=== PATIENT | female | born 1975 | race Caucasian/White ===

== ENCOUNTER 2018-12-16 16:30 | Inpatient (IN) | payer OTHER ==
--- NOTE | 2018-12-16 17:03 | ED ---
General Adult HPI - General Chief complaint: Shortness of Breath Stated complaint: LOW O2 Time Seen by Provider: 12/16/18 16:48 Source: patient Mode of arrival: ambulatory Limitations: no limitations - History of Present Illness Initial comments: Dictation was produced using [employer] dictation software. please excuse any grammatical, word or spelling errors. Chief Complaint: Patient is a 43-year-old female with recently removed tracheostomy presents with hypoxia. History of Present Illness: Patient is a 43-year-old female she was sent to the emergency department by home health care nurse. Allegedly patient has been 7 days out post tracheostomy removal. Patient had the trach placed for acute metabolic encephalopathy in acute hypoxic respiratory failure from pneumonia. Patient had her vitals checked by home health care nurse. Patient was hypoxic in the 70s. Patient has more shaky than usual although she does report that she was minimally tremulous. Patient states she's been coughing. Denies any pain. Patient resides with mother who concerned about her well-being. Mother has not had recurrent patient's medical status. Patient states that her shortness of breath has been progressive since having the tracheostomy removed. The ROS documented in this emergency department record has been reviewed and confirmed by me. Those systems with pertinent positive or negative responses have been documented in the HPI. All other systems are other negative and/or noncontributory. PHYSICAL EXAM: General Impression: Alert and oriented x3, tremulous HEENT: Normocephalic atraumatic, extra-ocular movements intact, pupils equal and reactive to light bilaterally, mucous membranes moist, tracheostomy site clean dry and intact Cardiovascular: Heart regular rate and rhythm, S1&S2 audible, no murmurs, rubs or gallops Chest: Crackles to the left lower lung base Abdomen: Bowel sounds present, abdomen soft, non-tender, non-distended, no organomegaly Musculoskeletal: Pulses present and equal in all extremities, no peripheral edema Motor: no focal deficits noted Neurological: CN II-XII grossly intact, no focal motor or sensory deficits noted Skin: Intact with no visualized rashes Psych: Normal affect and mood ED course: Patient is a 43-year-old female presents with toxic respiratory failure. Patient has extensive history of bilateral pneumonia, tracheostomy tube and removal. Patient does have positive lung auscultatory findings in the left lower lung base. On arrival shows heart rate of 127, respiratory 28, 80% on room air. She is immediately placed on supplemental oxygen with improvement of saturations to the mid 90s.Laboratory evaluation obtained. Leukocytosis 12.8. This appears to be R the patient's baseline. D-dimer is elevated 125. Blood gases are unremarkable. Metabolic panel shows potassium 3.2. Patient given IV potassium. Rest of labs are unremarkable. Chest x-ray shows findings of widespread bilateral infiltrative ill-defined consolidative opacity concerning for pneumonia versus pulmonary edema. X-ray of the cervical spine is unremarkable. Given elevated d-dimer CT angios the chest was obtained showing no findings of pulmonary edema however there is widespread bilateral airspace filling pulmonary process." Presentation is concerning for multifocal pneumonia. Given that patient was recently hospitalized we will cover with broad-spectrum antibiotics. Blood cultures pending. Patient kept on supplemental oxygen. Reevaluation shows improvement of symptoms. We will plan to have patient admitted with pulmonology on consult. Patient and family are understandable and agreeable to disposition. EKG interpretation: Ventricular rate 1:15, sinus tachycardia,. Interval 150, care is 80, QTc 442. No W[place] prolongation, no QTC prolongation, no ST or T-wave changes noted. EKG compared to 12/04/2018 showing no changes. Overall, this EKG is unremarkable - Related Data Home Medications Medication Instructions Recorded Confirmed Sertraline HCl [Zoloft] 200 mg PO PC-BRKFST 11/16/18 12/16/18 busPIRone HCL 15 mg PO BID 11/16/18 12/16/18 ALPRAZolam [Xanax] 0.5 mg PO TID PRN 12/16/18 12/16/18 Ipratropium-Albuterol Nebulize 3 ml INHALATION RT-QID PRN 12/16/18 12/16/18 [Duoneb 0.5 mg-3 mg/3 ml Soln] cloNIDine HCL [Catapres] 0.2 mg PO HS 12/16/18 12/16/18 Previous Rx's Medication Instructions Recorded Melatonin 2 mg PO HS tab 12/03/18 Allergies Allergy/AdvReac Type Severity Reaction Status Date / Time Sulfa (Sulfonamide Allergy Itching Verified 12/16/18 17:53 Antibiotics) sulfamethoxazole Allergy Rash/Hives Verified 12/16/18 17:53 [From Bactrim] trimethoprim [From Bactrim] Allergy Rash/Hives Verified 12/16/18 17:53 Review of Systems ROS Statement: Those systems with pertinent positive or pertinent negative responses have been documented in the HPI. ROS Other: All systems not noted in ROS Statement are negative. Past Medical History Past Medical History: Pneumonia, Respiratory Disorder Additional Past Medical History / Comment(s): Polysubstane abuse, hisotry of drug overdose, history of ARDS requiring intubation and mechanical ventilation, history of severe rhabdomyalysis and LUIS MIGUEL (recovered), history of MSSA pneumonia and sepsis, history of metabolic encephalopathy (recovered), hisotory of depression, suicide, obesity History of Any Multi-Drug Resistant Organisms: MRSA, None Reported Date of last positivie culture/infection: None MDRO Source:: None Past Surgical History: No Surgical Hx Reported, Unable to Obtain Additional Past Surgical History / Comment(s): breast biopsy (date unknown) Past Anesthesia/Blood Transfusion Reactions: No Reported Reaction Past Psychological History: Anxiety, Depression Smoking Status: Current every day smoker Past Alcohol Use History: None Reported, Unable to Obtain Past Drug Use History: Marijuana, Methamphetamine, None Reported General Exam Limitations: no limitations Course Vital Signs 12/16/18 12/16/18 12/16/18 16:36 16:46 17:35 Temperature 99.2 F Pulse Rate 127 H 121 H 115 H Respiratory 28 H 22 24 Rate Blood Pressure 117/70 121/84 139/99 O2 Sat by Pulse 80 L 92 L 94 L Oximetry 12/16/18 18:59 Temperature 99.4 F Pulse Rate 108 H Respiratory 22 Rate Blood Pressure 132/94 O2 Sat by Pulse 96 Oximetry Medical Decision Making - Lab Data Result diagrams: 12/16/18 17:35 12/16/18 17:35 Lab Results 12/16/18 12/16/18 12/16/18 Range/Units 17:35 17:35 17:35 WBC 12.8 H (3.8-10.6) k/uL RBC 3.50 L (3.80-5.40) m/uL Hgb 9.5 L D (11.4-16.0) gm/dL Hct 29.2 L (34.0-46.0) % MCV 83.2 D (80.0-100.0) fL MCH 27.0 (25.0-35.0) pg MCHC 32.5 (31.0-37.0) g/dL RDW 15.7 H (11.5-15.5) % Plt Count 445 (150-450) k/uL Neutrophils % 74 % Lymphocytes % 18 % Monocytes % 3 % Eosinophils % 4 % Basophils % 0 % Neutrophils # 9.5 H (1.3-7.7) k/uL Lymphocytes # 2.3 (1.0-4.8) k/uL Monocytes # 0.4 (0-1.0) k/uL Eosinophils # 0.5 (0-0.7) k/uL Basophils # 0.0 (0-0.2) k/uL Hypochromasia Moderate Poikilocytosis Slight D-Dimer (<0.60) mg/L FEU VBG pH (7.31-7.41) VBG pCO2 (37-51) mmHg VBG HCO3 (24-28) mmol/L Sodium 144 (137-145) mmol/L Potassium 3.2 L (3.5-5.1) mmol/L Chloride 113 H (98-107) mmol/L Carbon Dioxide 22 (22-30) mmol/L Anion Gap 9 mmol/L BUN 9 (7-17) mg/dL Creatinine 0.77 (0.52-1.04) mg/dL Est GFR (CKD-EPI)AfAm >90 (>60 ml/min/1.73 sqM) Est GFR (CKD-EPI)NonAf >90 (>60 ml/min/1.73 sqM) Glucose 91 (74-99) mg/dL Plasma Lactic Acid Elie 1.0 (0.7-2.0) mmol/L Calcium 8.6 (8.4-10.2) mg/dL Magnesium 1.7 (1.6-2.3) mg/dL 12/16/18 12/16/18 Range/Units 17:35 17:35 WBC (3.8-10.6) k/uL RBC (3.80-5.40) m/uL Hgb (11.4-16.0) gm/dL Hct (34.0-46.0) % MCV (80.0-100.0) fL MCH (25.0-35.0) pg MCHC (31.0-37.0) g/dL RDW (11.5-15.5) % Plt Count (150-450) k/uL Neutrophils % % Lymphocytes % % Monocytes % % Eosinophils % % Basophils % % Neutrophils # (1.3-7.7) k/uL Lymphocytes # (1.0-4.8) k/uL Monocytes # (0-1.0) k/uL Eosinophils # (0-0.7) k/uL Basophils # (0-0.2) k/uL Hypochromasia Poikilocytosis D-Dimer 1.85 H (<0.60) mg/L FEU VBG pH 7.35 (7.31-7.41) VBG pCO2 39 (37-51) mmHg VBG HCO3 21 L (24-28) mmol/L Sodium (137-145) mmol/L Potassium (3.5-5.1) mmol/L Chloride (98-107) mmol/L Carbon Dioxide (22-30) mmol/L Anion Gap mmol/L BUN (7-17) mg/dL Creatinine (0.52-1.04) mg/dL Est GFR (CKD-EPI)AfAm (>60 ml/min/1.73 sqM) Est GFR (CKD-EPI)NonAf (>60 ml/min/1.73 sqM) Glucose (74-99) mg/dL Plasma Lactic Acid Elie (0.7-2.0) mmol/L Calcium (8.4-10.2) mg/dL Magnesium (1.6-2.3) mg/dL Disposition Clinical Impression: Multifocal pneumonia Disposition: ADMITTED IP TO THIS [facility] Condition: Fair Referrals: Leandro Mendoza DO [Primary Care Provider] - 1-2 days Decision Time: 19:49
--- NOTE | 2018-12-16 17:48 | XR ---
EXAMINATION: XR chest 2V DATE AND TIME: 12/16/2018 5:31 PM CLINICAL INDICATION: PHH; Pain TECHNIQUE: Departmental protocol COMPARISON: 12/04/2018 FINDINGS: There is interval worsening in the lung inflation pattern when compared to the prior study. Since prior study the patient's tracheostomy has been removed, by history 2 days ago. There is diffuse consolidative opacity scattered throughout the upper and mid and lower lung zones bi laterally. The pattern appears to represent multifocal pneumonia, greater on the left, but asymmetric pulmonary edema is within the radiographic differential diagnosis. Pleural spaces are negative. Pelvic silhouette is mild-moderately enlarged. No definite acute skeletal or soft tissue findings. IMPRESSION: Widespread bilateral infiltrative ill-defined consolidative opacity, and system with differential of pneumonia versus asymmetric pulmonary edema.
[2018-12-16 17:50] LABS: VBG PH 7.35 (7.31-7.41)
[2018-12-16 17:52] LABS: Basophils % (A) 0 %; Eosinophils # (A) 0.5 k/uL (0-0.7); Eosinophils % (A) 4 %; HCT 29.2 % (34.0-46.0); Hypochromasia Moderate; Lymphocytes # (A) 2.3 k/uL (1.0-4.8); Lymphocytes % (A) 18 %; MCHC 32.5 g/dL (31.0-37.0); Mean Platelet Volume 7.2; Monocytes # (A) 0.4 k/uL (0-1.0); Monocytes % (A) 3 %; Neutrophils # (A) 9.5 k/uL (1.3-7.7); Neutrophils % (A) 74 %; Platelet Count 445 k/uL (150-450); Poikilocytosis Slight; RDW 15.7 % (11.5-15.5); WBC 12.8 k/uL (3.8-10.6)
[2018-12-16 17:57] LABS: HGB 9.5 gm/dL (11.4-16.0); MCV 83.2 fL (80.0-100.0)
--- NOTE | 2018-12-16 17:57 | XR ---
PROCEDURE: XR cervical spine comp - 5V DATE AND TIME: 12/16/2018 5:31 PM CLINICAL INDICATION: PHH; Pain TECHNIQUE: Department protocol COMPARISON: None FINDINGS: There is no fracture or malalignment. The soft tissues are unremarkable. IMPRESSION: NO ACUTE PROCESS.
[2018-12-16 17:59] LABS: African American GFR (CKD) >90 (>60 ml/min/1.73 sqM); Anion Gap 9 mmol/L; Blood Urea Nitrogen 9 mg/dL (7-17); Calcium 8.6 mg/dL (8.4-10.2); Carbon Dioxide 22 mmol/L (22-30); Chloride 113 mmol/L (98-107); Glucose 91 mg/dL (74-99); Magnesium 1.7 mg/dL (1.6-2.3); Potassium 3.2 mmol/L (3.5-5.1); Sodium 144 mmol/L (137-145)
[2018-12-16] MEDS ORDERED: POTASSIUM CHLORIDE 20 MEQ in WATER FOR INJECTION 1 100ML.BAG IVPB STA (18:38)
--- NOTE | 2018-12-16 19:34 | CT ---
EXAMINATION TYPE: CT angio chest with contrast and with 3-D reconstruction renderings DATE OF EXAM: 12/16/2018 7:11 PM COMPARISON: None HISTORY: ESSENCE, low O2 stats. Pt hx ARDS, MSSA pneumonia, polysubstance abuse CT DLP: 482.4 mGycm Automated exposure control for dose reduction was used. CONTRAST: 3-D reconstructions CTA scan of the thorax is performed with IV Contrast, patient injected with 100 mL of Isovue 370, pulmonary embolism protocol. . FINDINGS: Patient motion artifact is seen on all sequences, limiting visualization and diagnostic bakari bility to a mild degree. AIRWAY: The tracheobronchial tree is patent. LUNGS: There are bilateral multifocal consolidative and groundglass opacity throughout the upper, mid and lower lung zones. The airspace filling process is not gravity dependent and, therefore, is unlik fany to represent pulmonary edema - and more consistent with a differential of multifocal pneumonia or pulmonary hemorrhage. PLEURAL SPACES: There is no pleural effusion or pneumothorax. MEDIASTINUM: There is satisfactory enhancement of the pulmonary artery and its branches, there is no CT evidence for pulmonary embolism. No acute aortic findings. There is mild cardiomegaly. No pericar dial effusion.. There are no greater than 1 cm hilar or mediastinal lymph nodes. OTHER: No additional significant abnormality is seen. IMPRESSION: 1. NEGATIVE FOR PULMONARY EMBOLISM. 2. WIDESPREAD BILATERAL AIRSPACE FILLING PULMONARY PROCESS.
[2018-12-16] MEDS ORDERED: CEFEPIME 2 GM in SODIUM CHLORIDE 0.9% 100 ML IVPB STA (19:36)
[2018-12-16] MEDS ORDERED: VANCOMYCIN 1,000 MG in SODIUM CHLORIDE 0.9% 250 ML IVPB STA (19:36)
[2018-12-16] MEDS ORDERED: NALOXONE 0.4 MG/ML 1 ML VIAL IV PRN (19:46)
[2018-12-16] MEDS ORDERED: VANCOMYCIN 1,750 MG in SODIUM CHLORIDE 0.9% 500 ML 500 ML IVPB ONE ×2 (20:00→22:00)
[2018-12-16] MEDS: SODIUM CHLORIDE 0.9% 1,000 ML IV SCH (20:22)
[2018-12-16] MEDS: ALPRAZolam 0.5 MG TAB PO PRN (21:54)
[2018-12-17] MEDS: SODIUM CHLORIDE 0.9% 1,000 ML IV SCH ×2 (05:34→18:00)
[2018-12-17] MEDS ORDERED: POTASSIUM CHLORIDE ER 20 MEQ TAB.ER PO STA ×2 (05:54→17:10)
[2018-12-17] MEDS: PANTOPRAZOLE 40 MG TABLET PO SCH (06:19)
[2018-12-17] MEDS: SERTRALINE 100 MG TAB PO SCH (08:28)
[2018-12-17] MEDS: HYDROcodone/APAP 5-325MG 1 EACH TAB PO PRN ×3 (08:28→18:11)
[2018-12-17] MEDS: ALPRAZolam 0.5 MG TAB PO PRN ×2 (08:55→18:11)
[2018-12-17] MEDS: busPIRone HCl 5 MG TAB PO SCH ×2 (11:31→20:18)
[2018-12-17] MEDS: ONDANSETRON 4 MG/2 ML VIAL IVP PRN (11:48)
--- NOTE | 2018-12-17 14:44 | CONS ---
CONSULTATION PULMONARY/CRITICAL CARE CONSULTATION: DATE OF SERVICE: 12/17/2018 REASON FOR CONSULTATION: Low saturations and apparently shortness of breath. Patient is a very poor historian. This is a 43-year-old female who was recently in the [facility] for about 18 days. I believe she was admitted on November 16 and discharged right around December 03 or so. On that admission, she came in with a suicide attempt. She apparently overdosed on amphetamines, methamphetamines and marijuana. She developed acute respiratory failure secondary to aspiration and eventual ARDS. She was intubated and mechanically ventilated for a number of days here in the ICU. Because of failure to wean and poor mental status, she underwent tracheostomy and PEG tube placement. The patient apparently was discharged to some sort of rehab facility for a couple of weeks and was recently seen by my partner in the office. He apparently decannulated her because she thought that she was stable from the respiratory status and she was not having any issues with cough or phlegm production. Subsequent to this, she apparently presented to the emergency room with low saturations. She apparently was discovered to have low saturations by her home nurse. The patient was sent in. The patient was complaining of cough. Some phlegm production from the mouth, but not from the tracheostomy stoma. No fever or chills. The patient's chest x-ray and CAT scan both show diffuse bilateral infiltrates. Her saturations were in the 70s. She was more shaky than usual. She is a very poor historian and other than the cough and shortness of breath, no other particular complaints. The patient is resting comfortably on the floor. She has been decannulated. She is on 4 L nasal cannula. Her PEG tube is still in. HOME MEDICATIONS: Include Zoloft, BuSpar, Xanax, DuoNeb, clonidine and melatonin. ALLERGIES: Include SULFA, BACTRIM, TRIMETHOPRIM. PAST MEDICAL HISTORY: Positive for acute respiratory distress syndrome, respiratory failure requiring long- term intubation, mechanical ventilation, status post tracheostomy and PEG tube placement. She has a history of polysubstance abuse and multiple drug overdoses and suicide attempts. She also has a history of severe rhabdomyolysis and acute kidney injury. She has a history of methicillin sensitive Staph aureus pneumonia, metabolic encephalopathy, depression, and obesity. SURGICAL HISTORY: Includes a tracheostomy and PEG tube placement recently. She has been decannulated. PEG tube still in place. She has also had a breast biopsy. SOCIAL HISTORY: Positive for current and ongoing tobacco use. She also apparently drinks alcohol. She has significant drug use including methamphetamines, amphetamines and marijuana. I do not recall what she overdosed on the last time she was at [facility] in the similar situation. OCCUPATION HISTORY: Currently, she is unemployed. FAMILY HISTORY: Essentially unremarkable. Mother and father apparently do not have any major medical problems. REVIEW OF SYSTEMS: CONSTITUTIONAL: Weakness. NEUROLOGIC: Negative. HEENT: Negative. CARDIOVASCULAR: Negative. PULMONARY: Cough;shortness of breath, some phlegm production which is the expelled orally and not through the tracheostomy stoma. GI: Negative. : Negative. RHEUMATOLOGIC: Negative. IMMUNOLOGIC: Negative. HEMATOLOGIC: Negative. DERMATOLOGIC: Negative. Current vital signs are reviewed her temperature is 98.4, heart rate is 102, respiratory rate 20, blood pressure 160/84 mean 94, 4 L saturations is 93%-94%. She appears in no acute distress. HEENT: Examination is grossly unremarkable. Mucous membranes are moist. Nasal O2 noted. NECK: Supple. Full range of motion. No adenopathy or thyromegaly. Neck veins are flat. CARDIOVASCULAR: Examination reveals regular rhythm and rate. Heart rate about 100. S1, S2 normal. There is no murmur. LUNGS: Reveal diffuse coarse rhonchi. No wheezes or crackles. Breath sounds equal. ABDOMEN: Soft. PEG tube noted. Bowel sounds are noted. EXTREMITIES: Intact. No cyanosis, clubbing, or significant edema. SKIN: Reveals a lesion on the left forearm. Looks like an eschar. NEUROLOGIC: Examination is difficult to evaluate, but she does move all four extremities well. She is able to answer questions appropriately. Negative. Review of systems I have. LABS: Reviewed. White count 12.8, hemoglobin 9.5, hematocrit 29.2, platelet count 445,000. D-dimer 1.85. Venous blood gases are noted. PCO2 is 39, pH 7.35. Sodium 144, potassium 3.2, chloride 113, CO2 of 22, BUN and creatinine were 9 and 0.77. The rest of the metabolic profile is normal. The patient had a chest x-ray yesterday on admission to the emergency room. It shows widespread bilateral infiltrates. Some of these infiltrates may be is residual infiltrates and/or scarring from her recent episode of her covered acute respiratory distress syndrome. In addition, she had a chest CTA. It was negative for pulmonary embolism. There was diffuse bilateral airspace disease. This is most consistent with probable pneumonia and/or pulmonary hemorrhage. Current medications include Maxipime, updrafts, and vancomycin. The rest of medications are appropriate. ASSESSMENT: 1. Diffuse bilateral pneumonia, possibly related to underlying aspiration. 2. Recent episode of acute respiratory failure following a suicide attempt with and thiamine and methamphetamines and marijuana, status post long-term intubation and mechanical ventilation and subsequent tracheostomy and PEG tube placement. 3. Recent decannulation of tracheostomy tube by my partner. 4. Polysubstance abuse. 5. Multiple suicide attempts. 6. History of ARDS. 7. Severe rhabdomyolysis. 8. Acute kidney injury. 9. History of methicillin sensitive Staph aureus pneumonia. 10.Metabolic encephalopathy. 11.History of depression. 12.History of obesity. PLAN: The patient is on appropriate medications. She is currently on Maxipime, vancomycin, and updrafts. No additional recommendations are made. We should institute aspiration precautions. Head of bed elevated at all times. She should never be laying flat in bed. Additional recommendations and suggestions are forthcoming. Will continue to follow. A followup chest x-ray in a couple days would be appropriate. MMODL / IJN: [id number] /
--- NOTE | 2018-12-17 16:28 | P.HPIM ---
History of Present Illness H&P Date: 12/17/18 Chief Complaint: Cough History of presenting complaint: This is a pleasant 43-year-old patient who was discharged from the hospital on 12/04/2018. Patient then was admitted with bilateral pneumonia suspected of aspiration pneumonia. The patient that time also had hypoxic respiratory failure felt to be somewhat induced by some drugs including methamphetamines. Patient also had acute kidney injury with acute tubal necrosis, acute rhabdomyolysis, septic shock from the pneumonia metabolic acidosis. Patient had been a cigarette smoker. The patient had a tracheostomy and a PEG tube. Prior to being discharge patient had been tolerating a regular diet. The patient had a tracheostomy removed about a week ago. Patient is having increasing intermittent cough. Shortness of breath. Also bringing up sputum. Has been feeling a bit hot and cold. Patient had a home visit to come in. For home health. The patient's mother expressed at home that she was consolable the patient. Has patient admitted. This is high suspicion of aspiration. Review of systems: GEN.: Tired EYES: None HEENT: None NECK: None RESPIRATORY: As above CARDIOVASCULAR: None GASTROINTESTINAL: None GENITOURINARY: None MUSCULOSKELETAL: None LYMPHATICS: None HEMATOLOGICAL: None PSYCHIATRY: Bit anxious NEUROLOGICAL: None Past medical history includes: Recent bilateral pneumonia, recent acute kidney injury, depression, Social history: Since discharge has been living with her mother. Has a 10-year-old daughter. Patient was smoking prior to last admission. Denies currently. Patient had prior to that was also taking marijuana and methamphetamines. Family history: Reviewed, noncontributory presentation Physical examination: VITAL SIGNS: 99.2, 127, 28, 117/70, 80% on room air GENERAL: BMI 41.1, laying in bed, tired appearing]. EYES: Pupils equal. Conjunctiva normal. HEENT: External appearance of nose and ears normal, oral cavity grossly normal. NECK: JVD not raised; masses not palpable. HEART: First and second heart sounds are normal; no edema. LUNGS: Respiratory rate increased, decreased breaths on some occasional crackles. ABDOMEN: Soft, nontender, liver spleen not palpable, no masses palpable. LYMPHATICS: No lymph nodes palpable in the axilla and neck. PSYCH: Alert and oriented x3; mood and affect anxietyl. NEUROLOGICAL: Cranial nerves grossly intact; no facial asymmetry, power and sensation grossly intact. Investigations, reviewed in the clinical context White count 12.8, hemoglobin 9.5, platelets 445, potassium 3.2, BUN 9, creatinine 0.77 Chest x-ray film personally reviewed by me shows scattered bilateral infiltrates Assessment: -Bilateral infiltrates suggestive of aspiration pneumonia in a patient who recently had his tracheostomy tube removed and symptoms have been worse since then -Acute hypoxic respiratory failure from above -Morbid obesity BMI 41.12- -Depression and anxiety not otherwise specified -Hypokalemia -Normocytic anemia, hospital acquired from recent repeated blood draws Plan: Patient will have aspiration precautions. Including head of the bed being elevated. We will consult EP for a modified barium swallow. Patient is put on antibiotics. Other home medications are resumed. Care was discussed with the patient. Pulmonary was consulted. Past Medical History Past Medical History: Pneumonia, Respiratory Disorder Additional Past Medical History / Comment(s): Polysubstane abuse, hisotry of drug overdose, history of ARDS requiring intubation and mechanical ventilation, history of severe rhabdomyalysis and LUIS MIGUEL (recovered), history of MSSA pneumonia and sepsis, history of metabolic encephalopathy (recovered), hisotory of depression, suicide, obesity History of Any Multi-Drug Resistant Organisms: MRSA, None Reported Date of last positivie culture/infection: None MDRO Source:: None Past Surgical History: No Surgical Hx Reported, Unable to Obtain Additional Past Surgical History / Comment(s): breast biopsy (date unknown) Past Anesthesia/Blood Transfusion Reactions: No Reported Reaction Past Psychological History: Anxiety, Depression Smoking Status: Current every day smoker Past Alcohol Use History: None Reported, Unable to Obtain Past Drug Use History: Marijuana, Methamphetamine, None Reported Medications and Allergies Home Medications Medication Instructions Recorded Confirmed Type Sertraline HCl [Zoloft] 200 mg PO PC-BRKFST 11/16/18 12/16/18 History busPIRone HCL 15 mg PO BID 11/16/18 12/16/18 History Melatonin 2 mg PO HS tab 12/03/18 12/16/18 Rx ALPRAZolam [Xanax] 0.5 mg PO TID PRN 12/16/18 12/16/18 History Ipratropium-Albuterol Nebulize 3 ml INHALATION RT-QID PRN 12/16/18 12/16/18 History [Duoneb 0.5 mg-3 mg/3 ml Soln] cloNIDine HCL [Catapres] 0.2 mg PO HS 12/16/18 12/16/18 History Allergies Allergy/AdvReac Type Severity Reaction Status Date / Time Sulfa (Sulfonamide Allergy Itching Verified 12/16/18 17:53 Antibiotics) sulfamethoxazole Allergy Rash/Hives Verified 12/16/18 17:53 [From Bactrim] trimethoprim [From Bactrim] Allergy Rash/Hives Verified 12/16/18 17:53 Physical Exam Vitals: Vital Signs Temp Pulse Pulse Resp BP BP Pulse Ox 12/17/18 08:05 98.4 F 121 H 24 116/84 93 L 12/17/18 04:00 98.3 F 102 H 20 102/68 91 L 12/17/18 00:00 98.6 F 104 H 20 110/74 93 L 12/16/18 22:42 107 H 20 12/16/18 21:26 98.3 F 107 H 20 130/83 96 12/16/18 20:22 98.5 F 104 H 24 118/66 98 12/16/18 18:59 99.4 F 108 H 22 132/94 96 12/16/18 17:35 115 H 24 139/99 94 L 12/16/18 16:46 121 H 22 121/84 92 L 12/16/18 16:36 99.2 F 127 H 28 H 117/70 80 L Intake and Output 12/16/18 12/17/18 12/17/18 22:59 06:59 14:59 Intake Total 850 Balance 850 Intake: Intake, IV Titration 400 Amount Sodium Chloride 0.9% 1, 400 000 ml @ 100 mls/hr IV . Q10H [facility] Rx#:[id number] Oral 450 Other: Voiding Method Toilet Toilet # Voids 1 Weight 117.934 kg 119.1 kg Results CBC & Chem 7: 12/16/18 17:35 12/17/18 10:57 Labs: Abnormal Lab Results - Last 24 Hours (Table) 12/16/18 12/16/18 12/16/18 Range/Units 17:35 17:35 17:35 WBC 12.8 H (3.8-10.6) k/uL RBC 3.50 L (3.80-5.40) m/uL Hgb 9.5 L D (11.4-16.0) gm/dL Hct 29.2 L (34.0-46.0) % RDW 15.7 H (11.5-15.5) % Neutrophils # 9.5 H (1.3-7.7) k/uL D-Dimer (<0.60) mg/L FEU VBG HCO3 21 L (24-28) mmol/L Potassium 3.2 L (3.5-5.1) mmol/L Chloride 113 H (98-107) mmol/L 12/16/18 12/17/18 Range/Units 17:35 00:05 WBC (3.8-10.6) k/uL RBC (3.80-5.40) m/uL Hgb (11.4-16.0) gm/dL Hct (34.0-46.0) % RDW (11.5-15.5) % Neutrophils # (1.3-7.7) k/uL D-Dimer 1.85 H (<0.60) mg/L FEU VBG HCO3 (24-28) mmol/L Potassium 3.0 L (3.5-5.1) mmol/L Chloride (98-107) mmol/L Thrombosis Risk Factor Assmnt - Choose All That Apply Any of the Below Risk Factors Present?: Yes Each Factor Represents 1 point: Age 41-60 years, Obesity (BMI >25) Other Risk Factors: No Other congenital or acquired thrombophilia - If yes, enter type in comment: No Thrombosis Risk Factor Assessment Total Risk Factor Score: 2 Thrombosis Risk Factor Assessment Level: Low Risk
[2018-12-17] MEDS: CLINDAMYCIN 300 MG in DEXTROSE 5% IN WATER 50 ML IVPB SCH ×2 (18:10)
[2018-12-17] MEDS: MELATONIN 1 MG TAB PO SCH (20:53)
[2018-12-18] MEDS: HYDROcodone/APAP 5-325MG 1 EACH TAB PO PRN ×5 (00:06→20:59)
[2018-12-18] MEDS: CLINDAMYCIN 300 MG in DEXTROSE 5% IN WATER 50 ML IVPB SCH ×8 (00:07→23:40)
[2018-12-18] MEDS: SODIUM CHLORIDE 0.9% 1,000 ML IV SCH ×3 (02:06→21:00)
[2018-12-18] MEDS: ALPRAZolam 0.5 MG TAB PO PRN ×2 (05:13→13:49)
[2018-12-18] MEDS: ONDANSETRON 4 MG/2 ML VIAL IVP PRN (06:35)
[2018-12-18] MEDS: PANTOPRAZOLE 40 MG TABLET PO SCH (06:35)
[2018-12-18] MEDS: IPRATROPIUM-ALBUTEROL 3 ML NEB INHALATION PRN ×2 (07:46→11:12)
[2018-12-18] MEDS: SERTRALINE 100 MG TAB PO SCH (08:11)
[2018-12-18 08:15] LABS: African American GFR (CKD) >90 (>60 ml/min/1.73 sqM); Anion Gap 6 mmol/L; Blood Urea Nitrogen 4 mg/dL (7-17); Calcium 7.9 mg/dL (8.4-10.2); Carbon Dioxide 22 mmol/L (22-30); Chloride 114 mmol/L (98-107); Glucose 106 mg/dL (74-99); Potassium 3.7 mmol/L (3.5-5.1); Sodium 142 mmol/L (137-145)
[2018-12-18] MEDS: busPIRone HCl 5 MG TAB PO SCH ×2 (09:43→21:00)
--- NOTE | 2018-12-18 09:57 | P.CONS ---
History of Present Illness - Reason for Consult Consult date: 12/18/18 Left arm wound - History of Present Illness this is [id number] female who is known to the service from her rece nt hospitalization at an outside facility. During that stay the patient had a polysubstance overdose and was found with respiratory failure in a parked vehicle. She was resuscitated in an intensive care unit. She was intubated sedated and mechanically ventilated and there was concerns to anoxic e ncephalopathy as well as to ARDS. The patient surprisingly improved her status quite quickly and regained her mental status. Eventually she was discharged to the outpatient psychiatric follow-up service and her regular medical care. The patient again suffered a polysubstance overdose was brought to [facility] with evidence of acidosis, mild rhabdomyolysis and respiratory failure hypoxic in nature. She required intubation and mechanical ventilation and was evidence of significant pulmonic infiltration. Initially she required vasopressor support as well as bicarbonate therapy. Eventually these improved, her renal failure improved but she remained with poor pulmonary status. Because of his tracheostomy and PEG were placed to assist with her recovery. Patient was subsequently discharged from the hospital in stable condition to home with [facility] home care. She states that her home care nurse checked her pulse ox at home and it was low and she was instructed to come into the hospital for evaluation. Patient denies having any fever or chills but feels achy all over. She complains of cough with sputum production. She came in to [facility] emergency center. She was afebrile, white count 12.8, creatinine 0.77, lactic acid 1. Blood culture was obtained which is showing no growth at 24 hours. Chest x-ray shows widespread bilateral infiltrate ill-defined consolidative opacities pneumonia versus asymmetrical pulmonary edema. Cardiac silhouette is mild to moderately enlarged. CT of the chest was negative for pulmonary edema. Widespread bilateral airspace filling pulmonary process noted. Cervical spine x-ray showed no fracture or malalignment. Patient was started on clindamycin, received 1 dose of vancomycin and admitted to the cardiac stepdown unit. A shunt is followed by pulmonary medicine for acute hypoxic respiratory failure and bilateral pneumonia possible aspiration pneumonia. Patient has a wound to the left forearm. Patient is unable to determine how or when this occurred. Patient doesn't appear to have significant pain to the area. Tetanus was last updated 1-1/2 years ago according to the patient. Review of Systems Constitutional: Reports fatigue, Reports lethargy, Reports malaise, Reports weakness, Denies chills, Denies fever, Denies poor appetite Ears, nose, mouth and throat: Denies dental pain, Denies dysphagia, Denies hoarseness, Denies nasal congestion, Denies nasal discharge, Denies sore throat, Denies vertigo Cardiovascular: Denies decreased exercise tolerance, Denies dyspnea on exertion, Denies edema, Denies leg edema, Denies lightheadedness, Denies syncope Respiratory: Reports cough, Reports cough with sputum, Reports dyspnea, Denies congestion, Denies excessive sputum, Denies hemoptysis, Denies home oxygen Gastrointestinal: Denies abdominal pain, Denies loss of appetite, Denies nausea, Denies vomiting Genitourinary: Denies dysuria, Denies urgency, Denies urinary frequency Musculoskeletal: Reports muscle weakness, Reports myalgias, Denies frequent falls, Denies gait dysfunction Integumentary: Reports wounds, Denies pruritus, Denies rash Neurological: Denies aphasia, Denies change in mentation, Denies change in speech, Denies seizures, Denies vertigo Psychiatric: Denies anxiety, Denies depression Past Medical History Past Medical History: Pneumonia, Respiratory Disorder Additional Past Medical History / Comment(s): Polysubstane abuse, hisotry of drug overdose, history of ARDS requiring intubation and mechanical ventilation, history of severe rhabdomyalysis and LUIS MIGUEL (recovered), history of MSSA pneumonia and sepsis, history of metabolic encephalopathy (recovered), hisotory of depression, suicide, obesity History of Any Multi-Drug Resistant Organisms: MRSA, None Reported Year Discovered:: None MDRO Source:: None Past Surgical History: No Surgical Hx Reported, Unable to Obtain Additional Past Surgical History / Comment(s): breast biopsy (date unknown) Past Anesthesia/Blood Transfusion Reactions: No Reported Reaction Past Psychological History: Anxiety, Depression Smoking Status: Current every day smoker Past Alcohol Use History: None Reported, Unable to Obtain Additional Past Alcohol Use History / Comment(s): The patient was a smoker for at least 20 years 1 pack per day and quit in November 2018. She denies any IV drug use. She states she has abused Vicodin in the past. She is currently living with her daughter. There is a cat in the home. No recent travel. Past Drug Use History: Marijuana, Methamphetamine, None Reported Medications and Allergies Home Medications Medication Instructions Recorded Confirmed Type Sertraline HCl [Zoloft] 200 mg PO PC-BRKFST 11/16/18 12/16/18 History busPIRone HCL 15 mg PO BID 11/16/18 12/16/18 History Melatonin 2 mg PO HS tab 12/03/18 12/16/18 Rx ALPRAZolam [Xanax] 0.5 mg PO TID PRN 12/16/18 12/16/18 History Ipratropium-Albuterol Nebulize 3 ml INHALATION RT-QID PRN 12/16/18 12/16/18 History [Duoneb 0.5 mg-3 mg/3 ml Soln] cloNIDine HCL [Catapres] 0.2 mg PO HS 12/16/18 12/16/18 History Allergies Allergy/AdvReac Type Severity Reaction Status Date / Time Sulfa (Sulfonamide Allergy Itching Verified 12/16/18 17:53 Antibiotics) sulfamethoxazole Allergy Rash/Hives Verified 12/16/18 17:53 [From Bactrim] trimethoprim [From Bactrim] Allergy Rash/Hives Verified 12/16/18 17:53 Physical Exam Vitals: Vital Signs Temp Pulse Pulse Resp BP Pulse Ox 12/18/18 07:55 96 12/18/18 07:48 100 12/18/18 04:00 98.3 F 100 20 102/65 95 12/18/18 03:45 18 12/18/18 00:00 98.7 F 101 H 18 112/74 93 L 12/17/18 20:00 98.7 F 105 H 20 90/60 93 L 12/17/18 16:10 98.4 F 89 22 109/68 99 12/17/18 11:20 98.2 F 105 H 20 106/74 95 Intake and Output 12/17/18 12/18/18 12/18/18 22:59 06:59 14:59 Intake Total 360 450 222 Balance 360 450 222 Intake: Intake, IV Titration 300 Amount Sodium Chloride 0.9% 1, 300 000 ml @ 100 mls/hr IV . Q10H [facility] Rx#:[id number] Oral 360 150 222 Other: Voiding Method Toilet Toilet # Voids 1 1 Weight 120.5 kg Gen: This is a morbidly obese 43-year-old female. Patient is in bed and appears to be comfortable and in no acute distress. HEENT: Head is atraumatic, normocephalic. Pupils equal, round. Sclerae is anicteric. Oral mucous membranes are moist. NECK: Supple. No JVD. No lymphadenopathy. No thyromegaly. LUNGS: Coarse breath sounds throughout bilaterally. No intercostal retractions. HEART: Regular rate and rhythm. No murmur. ABDOMEN: Soft. Bowel sounds are present. No masses. No tenderness. PEG tube in place to the mid epigastric area with no surrounding erythema and edema. EXTREMITIES: No pedal edema. No calf tenderness. Wound on the left dorsal forearm with eschar. There is minimal erythema. NEUROLOGICAL: Patient is awake, alert and oriented x2-3. Patient has some mild confusion, poor historian. Cranial nerves 2 through 12 are grossly intact. Results Results: Laboratory Results WBC 12.8 k/uL (3.8-10.6) H 12/16/18 17:35 RBC 3.50 m/uL (3.80-5.40) L 12/16/18 17:35 Hgb 9.5 gm/dL (11.4-16.0) L D 12/16/18 17:35 Hct 29.2 % (34.0-46.0) L 12/16/18 17:35 MCV 83.2 fL (80.0-100.0) D 12/16/18 17:35 MCH 27.0 pg (25.0-35.0) 12/16/18 17:35 MCHC 32.5 g/dL (31.0-37.0) 12/16/18 17:35 RDW 15.7 % (11.5-15.5) H 12/16/18 17:35 Plt Count 445 k/uL (150-450) 12/16/18 17:35 Neutrophils % 74 % 12/16/18 17:35 Lymphocytes % 18 % 12/16/18 17:35 Monocytes % 3 % 12/16/18 17:35 Eosinophils % 4 % 12/16/18 17:35 Basophils % 0 % 12/16/18 17:35 Neutrophils # 9.5 k/uL (1.3-7.7) H 12/16/18 17:35 Lymphocytes # 2.3 k/uL (1.0-4.8) 12/16/18 17:35 Monocytes # 0.4 k/uL (0-1.0) 12/16/18 17:35 Eosinophils # 0.5 k/uL (0-0.7) 12/16/18 17:35 Basophils # 0.0 k/uL (0-0.2) 12/16/18 17:35 Hypochromasia Moderate 12/16/18 17:35 Poikilocytosis Slight 12/16/18 17:35 D-Dimer 1.85 mg/L FEU (<0.60) H 12/16/18 17:35 VBG pH 7.35 (7.31-7.41) 12/16/18 17:35 VBG pCO2 39 mmHg (37-51) 12/16/18 17:35 VBG HCO3 21 mmol/L (24-28) L 12/16/18 17:35 Sodium 142 mmol/L (137-145) 12/18/18 07:39 Potassium 3.7 mmol/L (3.5-5.1) 12/18/18 07:39 Chloride 114 mmol/L (98-107) H 12/18/18 07:39 Carbon Dioxide 22 mmol/L (22-30) 12/18/18 07:39 Anion Gap 6 mmol/L 12/18/18 07:39 BUN 4 mg/dL (7-17) L 12/18/18 07:39 Creatinine 0.69 mg/dL (0.52-1.04) 12/18/18 07:39 Est GFR (CKD-EPI)AfAm >90 (>60 ml/min/1.73 sqM) 12/18/18 07:39 Est GFR (CKD-EPI)NonAf >90 (>60 ml/min/1.73 sqM) 12/18/18 07:39 Glucose 106 mg/dL (74-99) H 12/18/18 07:39 Plasma Lactic Acid Elie 1.0 mmol/L (0.7-2.0) 12/16/18 17:35 Calcium 7.9 mg/dL (8.4-10.2) L 12/18/18 07:39 Magnesium 1.7 mg/dL (1.6-2.3) 12/16/18 17:35 CBC & Chem 7: 12/16/18 17:35 12/18/18 07:39 Labs: Abnormal Lab Results - Last 24 Hours (Table) 12/17/18 12/18/18 Range/Units 10:57 07:39 Potassium 3.2 L (3.5-5.1) mmol/L Chloride 114 H (98-107) mmol/L BUN 4 L (7-17) mg/dL Glucose 106 H (74-99) mg/dL Calcium 7.9 L (8.4-10.2) mg/dL Microbiology - Last 24 Hours (Table) 12/16/18 19:59 Blood Culture - Preliminary Blood No Growth after 24 hours Assessment and Plan Plan: This is a 43-year-old female who presented to the hospital with acute hypoxic respiratory failure and bilateral pneumonia concern for aspiration pneumonia. Patient was also found to have an ulcer/wound to the left forearm with eschar. She is currently on IV antibiotics in form of clindamycin and received 1 dose of vancomycin. Local wound care will be addressed. Blood culture showing no growth at 24 hours. Continue supportive care. Further recommendations as patient progresses. The above dictated assessment and findings were discussed with Dr. Lugo. The impression and plan of care have been directed as dictated. Betsy Sims nurse practitioner acting as scribe for Dr. Lugo.
--- NOTE | 2018-12-18 13:54 | FL ---
EXAMINATION TYPE: FL barium swallow w video DATE OF EXAM: 12/18/2018 MODIFIED SWALLOW / DEGLUTITION STUDY CLINICAL HISTORY: Dysphagia. TECHNIQUE: Deglutition study is performed utilizing thin liquid barium, honey and nectar thick liqui d barium, barium thick applesauce, and barium coated cracker. 1.12 minutes of fluoroscopy time was ut ilized. 0 fluoroscopic images were saved as the examination was video recorded. COMPARISON: None. FINDINGS: The oral and pharyngeal phases show satisfactory initiation and propagation with all modali ties tested. Normal mastication is seen with solid modalities tested. There is no evidence of penet ration or aspiration with any modality tested. No significant pharyngeal residue was appreciated. IMPRESSION: Normal deglutition study. Please refer to speech therapist notes for further details if necessary.
--- NOTE | 2018-12-18 16:09 | P.PN ---
Subjective Progress Note Date: 12/18/18 Principal diagnosis: Hypoxemic, shortness of breath On 12/18/2018 patient seen in follow-up on selective care unit, she is resting in bed, in no acute distress, a bit dyspneic, slightly pale, poor appetite. Denies any chest pain, actually sounds better on today's exam, less congestion, just a few scattered rhonchi, she is on 5 L of oxygen, with a pulse ox of 91%, afebrile, hemodynamically patient is stable, per the patient went down for barium swallow evaluation today, which she passed. Occasional cough, no significant phlegm production. No new chest x-rays today, today's labs have been reviewed, showing serum sodium of 142, potassium is 3.7, chloride is 114, CO2 is 22, B1 is 4, creatinine is 0.69. Blood culture showed no growth so far, she is on clindamycin antibiotic coverage, did receive a dose of vancomycin in the emergency department, which has been discontinued. No fever or chills. Tracheostomy , is covered with a dressing, small amount of yellowish drainage on the gauze. Patient is difficult IV start, and apparently nursing is reporting difficulty starting IVs. Obtain a midline catheter. Objective - Vital Signs Vital signs: Vital Signs Temp 98.3 F 12/18/18 15:00 Pulse 108 H 12/18/18 15:00 Resp 18 12/18/18 15:00 BP 94/60 12/18/18 15:00 Pulse Ox 91 L 12/18/18 15:00 Intake & Output 12/17/18 12/18/18 12/18/18 18:59 06:59 18:59 Intake Total 222 810 772 Output Total 300 Balance -78 810 772 Weight 120.5 kg Intake: Intake, IV Titration 300 550 Amount Clindamycin 300 mg In 50 Dextrose 5% in Water 50 ml @ 50 mls/hr IVPB Q8HR [facility] Rx#:[id number] Sodium Chloride 0.9% 1, 300 500 000 ml @ 100 mls/hr IV . Q10H [facility] Rx#:[id number] Oral 222 510 222 Output: Urine 300 Other: Voiding Method Toilet # Voids 1 2 - Exam GENERAL EXAM: Alert, pleasant, 43-year-old white female, slightly pale, on 5 L of oxygen, with a pulse ox of 91-92% comfortable in no apparent distress. HEAD: Normocephalic/atraumatic. EYES: Normal reaction of pupils, equal size. Conjunctiva pink, sclera white. NOSE: Clear with pink turbinates. THROAT: No erythema or exudates. NECK: No masses, no JVD, no thyroid enlargement, no adenopathy. Midline neck tracheostomy stoma is covered with a dressing, small amount of yellowish drainage CHEST: No chest wall deformity. Symmetrical expansion. LUNGS: Equal air entry with a few scattered rhonchi CVS: Regular rate and rhythm, normal S1 and S2, no gallops, no murmurs, no rubs ABDOMEN: Soft, nontender. No hepatosplenomegaly, normal bowel sounds, no guarding or rigidity. EXTREMITIES: No clubbing, no edema, no cyanosis, 2+ pulses and upper and lower extremities. Left anterior forearm with large scabbed area on anterior surface MUSCULOSKELETAL: Muscle strength and tone normal. SPINE: No scoliosis or deformity SKIN: No rashes CENTRAL NERVOUS SYSTEM: Alert and oriented -3. No focal deficits, tone is normal in all 4 extremities. PSYCHIATRIC: Alert and oriented -3. Appropriate affect. Intact judgment and insight. - Labs CBC & Chem 7: 12/16/18 17:35 12/18/18 07:39 Labs: Abnormal Lab Results - Last 24 Hours (Table) 12/18/18 Range/Units 07:39 Chloride 114 H (98-107) mmol/L BUN 4 L (7-17) mg/dL Glucose 106 H (74-99) mg/dL Calcium 7.9 L (8.4-10.2) mg/dL Microbiology - Last 24 Hours (Table) 12/16/18 19:59 Blood Culture - Preliminary Blood No Growth after 24 hours Assessment and Plan Plan: Assessment: #1. Diffuse bilateral pneumonia, likely related to aspiration #2. Recent episode of acute respiratory failure following a suicide attempt with methamphetamines, marijuana, requiring intubation and has been on mechanical ventilation, and subsequent tracheostomy and PEG tube placement for failure to wean #3. Recent decannulation of tracheostomy tube #4. History of polysubstance abuse #5. Multiple suicide attempts #6. History of ARDS #7. Severe rhabdomyolysis last admission, resolved #8. Acute kidney injury during last admission, resolved #9. The of methicillin sensitive staph aureus pneumonia #10. Metabolic encephalopathy #11. History of depression #12. History of obesity Plan: We'll continue with current antibiotic coverage, continue nebulized bronchodilators, patient will need a midline catheter placed for IV antibiotic infusion, obtain sputum culture, blood culture showed no growth. We'll continue to follow I performed a history & physical examination of the patient and discussed their management with my nurse practitioner, Dagmar Guevara. I reviewed the nurse practitioner's note and agree with the documented findings and plan of care. Lung sounds are positive for a few scattered rhonchi throughout the lung hernandez. The findings and the impression was discussed with the patient. I attest to the documentation by the nurse practitioner. Time with Patient: Less than 30
[2018-12-18] MEDS: MELATONIN 1 MG TAB PO SCH (21:00)
--- NOTE | 2018-12-18 22:34 | P.PN ---
Progress Note - Text Progress Note Date: 12/18/18 Chief Complaint: Cough interval history:: This is a pleasant 43-year-old patient who was discharged from the hospital on 12/04/2018. Patient then was admitted with bilateral pneumonia suspected of aspiration pneumonia. The patient that time also had hypoxic respiratory failure felt to be somewhat induced by some drugs including methamphetamines. Patient also had acute kidney injury with acute tubal necrosis, acute rhabdomyolysis, septic shock from the pneumonia metabolic acidosis. Patient had been a cigarette smoker. The patient had a tracheostomy and a PEG tube. Prior to being discharge patient had been tolerating a regular diet. The patient had a tracheostomy removed about a week ago. Patient is having increasing intermittent cough. Shortness of breath. Also bringing up sputum. Has been feeling a bit hot and cold. Patient had a home visit to come in. For home health. The patient's mother expressed at home that she was consolable the patient. Has patient admitted. This is high suspicion of aspiration. Today-earlier today had a modified barium swallow. Seen by speech therapist. No evidence of aspiration. That has been addressed. Patient feels a bit better. The bit tired. Review of systems: Was done for constitutional, cardiovascular, GI, pulmonary. relevant finding as above Current medications are reviewed: That include: clindamycin, normal saline, DuoNeb Physical examination: VITAL SIGNS: 98.5, 106, 18, 88 x 37, 92% on 4 L GENERAL: , laying in bed, tired appearing]. EYES: Pupils equal. Conjunctiva normal. HEENT: External appearance of nose and ears normal, oral cavity grossly normal.healing tracheostomy site NECK: JVD not raised; masses not palpable. HEART: First and second heart sounds are normal; no edema. LUNGS: Respiratory rate increased, decreased breaths on some occasional crackles. ABDOMEN: Soft, nontender, liver spleen not palpable, no masses palpable. PSYCH: Alert and oriented x3; mood and affect anxietyl. Investigations, reviewed in the clinical context modified barium swallow-negative for aspiration potassium 3.7, BUN 4, creatinine 0.69 Assessment: -Bilateral infiltrates suggestive of aspiration pneumonia in a patient who recently had his tracheostomy tube removed and symptoms have been worse since then. Patient did have a barium swallow study today negative for aspiration -Acute hypoxic respiratory failure from above -Morbid obesity BMI 41.12- -Depression and anxiety not otherwise specified -Hypokalemia -Normocytic anemia, hospital acquired from recent repeated blood draws -Left forearm wound with his currentpresent on admission Plan: continue with IV clindamycin. We will change the patient to schedule bronchodilator.patient encouraged to sit up.
--- NOTE | 2018-12-18 22:55 | P.CON ---
Consult Note - . Consult date: 12/18/18 Assessment/Plan:: this is [id number] female who is known to the service from her recent hospitalization at an outside facility. During that stay the patient had a polysubstance overdose and was found with respiratory failure in a parked vehi farhat. She was resuscitated in an intensive care unit. She was intubated sedated and mechanically ventilated and there was concerns to anoxic encephalopathy as well as to ARDS. The patient surprisingly improved her status quite quickly and regained her mental status. Eventually she was discharged to the outpatient psychiatric follow-up service and her regular medical care. The patient again suffered a polysubstance overdose was brought to [facility] with evidence of acidosis, mild rhabdomyolysis and respiratory failure hypoxic in nature. She required intubation and mechanical ventilation and was evidence of significant pulmonic infiltration. Initially she required vasopressor support as well as bicarbonate therapy. Eventually these improved, her renal failure improved but she remained with poor pulmonary status. Because of his tracheostomy and PEG were placed to assist with her recovery. Patient was subsequently discharged from the hospital in stable condition to home with [facility] home care. She states that her home care nurse checked her pulse ox at home and it was low and she was instructed to come into the hospital for evaluation. Patient denies having any fever or chills but feels achy all over. She complains of cough with sputum production. She came in to [facility] emergency center. She was afebrile, white count 12.8, creatinine 0.77, lactic acid 1. Blood culture was obtained which is showing no growth at 24 hours. Chest x-ray shows widespread bilateral infiltrate ill-defined consolidative opacities pneumonia versus asymmetrical pulmonary edema. Cardiac silhouette is mild to moderately enlarged. CT of the chest was negative for pulmonary edema. Widespread bilateral airspace filling pulmonary process noted. Cervical spine x-ray showed no fracture or malalignment. Patient was started on clindamycin, received 1 dose of vancomycin and admitted to the cardiac stepdown unit. A shunt is followed by pulmonary medicine for acute hypoxic respiratory failure and bilateral pneumonia possible aspiration pneumonia. Patient has a wound to the left forearm. Patient is unable to determine how or when this occurred. Patient doesn't appear to have significant pain to the area. Tetanus was last updated 1-1/2 years ago according to the patient. please see the consult note as dictated by nurse practitioner Mrs. Betsy Sims. This 43-year-old woman has a very extensive recent past medical history regarding her repeated suicide attempts and bouts of respiratory failure. Most recently an acute lung injury requiring tracheostomy and PEG tube placement. She's now had ongoing improvement however presents to hospital with increasing shortness of breath. There is concern for potential aspiration given her recent decannulation of her tracheostomy. Her computed tomography scan reveals evidence of a pulmonary embolus seems to have some multifocal pneumonia.Currently she is being treated with clindamycin which will continue for the moment, swallow study is reported now evidence of aspiration. She is afebrile but does have some leukocytosis. It is unclear if the infiltrates are sniffily different during her most recent stay. However clinically was more short of breath. She's feeling better with the current interventions and will be continued for now. I agree with the evaluation, assessment and plan as dictated by nurse practitioner Mrs. Betsy Sims.
[2018-12-18] MEDS: IPRATROPIUM-ALBUTEROL 3 ML NEB INHALATION SCH (23:33)
[2018-12-19] MEDS: ALPRAZolam 0.5 MG TAB PO PRN ×4 (01:10→21:22)
[2018-12-19] MEDS: HYDROcodone/APAP 5-325MG 1 EACH TAB PO PRN ×4 (06:04→19:47)
[2018-12-19] MEDS: ONDANSETRON 4 MG/2 ML VIAL IVP PRN ×3 (06:04→21:24)
[2018-12-19] MEDS: PANTOPRAZOLE 40 MG TABLET PO SCH (06:05)
[2018-12-19] MEDS: IPRATROPIUM-ALBUTEROL 3 ML NEB INHALATION SCH ×4 (07:05→19:16)
[2018-12-19 07:55] LABS: African American GFR (CKD) >90 (>60 ml/min/1.73 sqM); Anion Gap 10 mmol/L; Blood Urea Nitrogen 5 mg/dL (7-17); Calcium 8.3 mg/dL (8.4-10.2); Carbon Dioxide 20 mmol/L (22-30); Chloride 113 mmol/L (98-107); Glucose 95 mg/dL (74-99); Potassium 4.1 mmol/L (3.5-5.1); Sodium 143 mmol/L (137-145)
[2018-12-19] MEDS: CLINDAMYCIN 300 MG in DEXTROSE 5% IN WATER 50 ML IVPB SCH ×6 (08:29→23:34)
[2018-12-19] MEDS: busPIRone HCl 5 MG TAB PO SCH ×2 (08:30→21:22)
[2018-12-19] MEDS: SODIUM CHLORIDE 0.9% 1,000 ML IV SCH ×2 (08:30→18:26)
[2018-12-19] MEDS: SERTRALINE 100 MG TAB PO SCH (08:30)
[2018-12-19] MEDS ORDERED: FUROSEMIDE 10 MG/ML 4 ML VIAL IV STA (09:57)
[2018-12-19] MEDS ORDERED: FUROSEMIDE 10 MG/ML 4 ML VIAL ONE (10:03)
--- NOTE | 2018-12-19 10:35 | XR ---
EXAMINATION TYPE: XR chest 1V portable DATE OF EXAM: 12/19/2018 COMPARISON: 12/16/2018 HISTORY: Shortness of breath TECHNIQUE: Single frontal view of the chest is obtained. FINDINGS: Examination is limited by degree of inspiration. Diffuse bilateral airspace infiltrates are noted whi ch may reflect pneumonia. Correlate for ARDS. Cardiomediastinal silhouette remains prominent. IMPRESSION: 1. Diffuse bilateral airspace infiltrates are noted which may reflect pneumonia. Correlate for ARDS.
[2018-12-19 10:53] LABS: ABG Base Excess -5.8 mmol/L; ABG HCO3 21 mmol/L (21-25); ABG Oxygen Saturation 99.6 % (94-97); ABG PCO2 46 mmHg (35-45); ABG PH 7.27 (7.35-7.45); ABG PO2 362 mmHg (83-108); ABG TCO2 23 mmol/L (19-24); Allen Test Performed? Yes
[2018-12-19] MEDS: ENOXAPARIN 40 MG/0.4 ML SYRINGE SQ SCH (12:20)
[2018-12-19] MEDS: methylPREDNISolone SOD SUCCI 125 MG/2 ML VIAL IV SCH ×3 (12:20→23:34)
[2018-12-19 12:44] LABS: Glucose,Whole Blood 146 mg/dL (75-99)
[2018-12-19 14:05] LABS: Anisocytosis Slight; Basophils # (A) 0.1 k/uL (0-0.2); Basophils % (A) 0 %; Eosinophils # (A) 0.1 k/uL (0-0.7); Eosinophils % (A) 1 %; HCT 28.3 % (34.0-46.0); HGB 9.1 gm/dL (11.4-16.0); Hypochromasia Moderate; Lymphocytes # (A) 1.5 k/uL (1.0-4.8); Lymphocytes % (A) 11 %; MCH 26.7 pg (25.0-35.0); MCHC 32.1 g/dL (31.0-37.0); MCV 83.3 fL (80.0-100.0); Mean Platelet Volume 8.2; Monocytes # (A) 0.4 k/uL (0-1.0); Monocytes % (A) 3 %; Neutrophils # (A) 11.6 k/uL (1.3-7.7); Neutrophils % (A) 84 %; Platelet Count 379 k/uL (150-450); Poikilocytosis Slight; RBC 3.39 m/uL (3.80-5.40); RDW 16.2 % (11.5-15.5); WBC 13.7 k/uL (3.8-10.6)
--- NOTE | 2018-12-19 15:28 | P.PN ---
Subjective Progress Note Date: 12/19/18 Principal diagnosis: Hypoxemic, shortness of breath On 12/18/2018 patient seen in follow-up on selective care unit, she is resting in bed, in no acute distress, a bit dyspneic, slightly pale, poor appetite. Denies any chest pain, actually sounds better on today's exam, less congestion, just a few scattered rhonchi, she is on 5 L of oxygen, with a pulse ox of 91%, afebrile, hemodynamically patient is stable, per the patient went down for barium swallow evaluation today, which she passed. Occasional cough, no significant phlegm production. No new chest x-rays today, today's labs have been reviewed, showing serum sodium of 142, potassium is 3.7, chloride is 114, CO2 is 22, B1 is 4, creatinine is 0.69. Blood culture showed no growth so far, she is on clindamycin antibiotic coverage, did receive a dose of vancomycin in the emergency department, which has been discontinued. No fever or chills. Tracheostomy , is covered with a dressing, small amount of yellowish drainage on the gauze. Patient is difficult IV start, and apparently nursing is reporting difficulty starting IVs. Obtain a midline catheter. On 12/19/2018 patient was noted to have increased difficulty breathing, she was noted to be desaturating her oxygenation requirement has increased, she was i nitially bumped up to 10 L high flow nasal cannula, her pulse ox was 93%, however subsequently her oxygenation continued to deteriorate, pulse socks was down to 80% on 15 L high flow, stat chest x-ray was obtained, patient was placed on BiPAP support, with pressures of 10/5, and 100%. Stat blood gases were obtained, showing mixed respiratory and metabolic acidosis, pO2 of 362, a CO2 of 46, and pH of 7.27, this was done on FiO2 100%. Patient was restarted on BiPAP support subsequently, she is lethargic, but opening her eyes to voice, lung sounds were diminished, a dose of IV Lasix was given, stat chest x-ray showed diffuse pulmonary infiltrates, with dissecting pneumonia, and possibility of ARDS. FiO2 was down to 50% based on the above mentioned blood gases, he steroids have been started, patient has been on clindamycin for antibiotic coverage, Have been unable to send a sputum culture, blood culture showed no growth. Today's labs have been reviewed, showing white blood cell count of 13.7, hemoglobin of 9.1, sodium of 143, potassium is 4.1, chloride is 113, CO2 is 20, BUN is 5, creatinine is 0.67, proBNP came back elevated at 5960. Patient diuresed a 4500 mL of dilute urine, she was transferred to the intensive care unit for closer monitoring. Objective - Vital Signs Vital signs: Vital Signs Temp 98.7 F 12/19/18 13:00 Pulse 98 12/19/18 14:30 Resp 26 H 12/19/18 14:30 BP 121/86 12/19/18 14:30 Pulse Ox 96 12/19/18 14:30 Intake & Output 12/18/18 12/19/18 12/19/18 18:59 06:59 18:59 Intake Total 994 325 100 Output Total 3650 Balance 994 325 -3550 Weight 120.5 kg Intake: IV 100 Sodium Chloride 0.9% 1, 100 000 ml @ 50 mls/hr IV . Q20H CATHY Rx#:[id number] Intake, IV Titration 550 200 Amount Clindamycin 300 mg In 50 Dextrose 5% in Water 50 ml @ 50 mls/hr IVPB Q8HR CATHY Rx#:[id number] Sodium Chloride 0.9% 1, 500 200 000 ml @ 50 mls/hr IV . Q20H CATHY Rx#:[id number] Oral 444 125 0 Output: Urine 3650 Other: Voiding Method Toilet Indwelling Catheter # Voids 2 3 - Exam GENERAL EXAM: Alert, pleasant, 43-year-old white female, slightly pale, lethargic, but arousable to verbal stimuli, currently on BiPAP support with pressures of 1005 and FiO2 of 50% HEAD: Normocephalic/atraumatic. EYES: Normal reaction of pupils, equal size. Conjunctiva pink, sclera white. NOSE: Clear with pink turbinates. THROAT: No erythema or exudates. NECK: No masses, no JVD, no thyroid enlargement, no adenopathy. Midline neck tracheostomy stoma is covered with a dressing, small amount of yellowish drainage CHEST: No chest wall deformity. Symmetrical expansion. LUNGS: Equal air entry with a few scattered rhonchi CVS: Regular rate and rhythm, normal S1 and S2, no gallops, no murmurs, no rubs ABDOMEN: Soft, nontender. No hepatosplenomegaly, normal bowel sounds, no guarding or rigidity. EXTREMITIES: No clubbing, no edema, no cyanosis, 2+ pulses and upper and lower extremities. Left anterior forearm with large scabbed area on anterior surface MUSCULOSKELETAL: Muscle strength and tone normal. SPINE: No scoliosis or deformity SKIN: No rashes CENTRAL NERVOUS SYSTEM: Alert and oriented -3. No focal deficits, tone is normal in all 4 extremities. PSYCHIATRIC: Alert and oriented -3. Appropriate affect. Intact judgment and insight. - Labs CBC & Chem 7: 12/19/18 12:52 12/19/18 06:49 Labs: Abnormal Lab Results - Last 24 Hours (Table) 12/19/18 12/19/18 12/19/18 Range/Units 06:49 10:50 12:43 WBC (3.8-10.6) k/uL RBC (3.80-5.40) m/uL Hgb (11.4-16.0) gm/dL Hct (34.0-46.0) % RDW (11.5-15.5) % Neutrophils # (1.3-7.7) k/uL ABG pH 7.27 L (7.35-7.45) ABG pCO2 46 H (35-45) mmHg ABG pO2 362 H (83-108) mmHg ABG O2 Saturation 99.6 H (94-97) % Chloride 113 H (98-107) mmol/L Carbon Dioxide 20 L (22-30) mmol/L BUN 5 L (7-17) mg/dL POC Glucose (mg/dL) 146 H (75-99) mg/dL Calcium 8.3 L (8.4-10.2) mg/dL 12/19/18 Range/Units 12:52 WBC 13.7 H (3.8-10.6) k/uL RBC 3.39 L (3.80-5.40) m/uL Hgb 9.1 L (11.4-16.0) gm/dL Hct 28.3 L (34.0-46.0) % RDW 16.2 H (11.5-15.5) % Neutrophils # 11.6 H (1.3-7.7) k/uL ABG pH (7.35-7.45) ABG pCO2 (35-45) mmHg ABG pO2 (83-108) mmHg ABG O2 Saturation (94-97) % Chloride (98-107) mmol/L Carbon Dioxide (22-30) mmol/L BUN (7-17) mg/dL POC Glucose (mg/dL) (75-99) mg/dL Calcium (8.4-10.2) mg/dL Microbiology - Last 24 Hours (Table) 12/16/18 19:59 Blood Culture - Preliminary Blood No Growth after 48 hours Assessment and Plan Plan: Assessment: #1. Acute hypoxemic and hypercapnic respiratory failure related to bilateral pneumonia, and possibility of ARDS. #2. Diffuse bilateral pneumonia, likely related to aspiration #3. Recent episode of acute respiratory failure following a suicide attempt with methamphetamines, marijuana, requiring intubation and has been on mechanical ventilation, and subsequent tracheostomy and PEG tube placement for failure to wean #4. Recent decannulation of tracheostomy tube #5. History of polysubstance abuse #6. Multiple suicide attempts #7. History of ARDS #8. Severe rhabdomyolysis last admission, resolved #9. Acute kidney injury during last admission, resolved #10. The of methicillin sensitive staph aureus pneumonia #11. Metabolic encephalopathy #12. History of depression #13. History of obesity Plan: Patient has been transferred to the intensive care unit for closer monitoring, chest x-ray has been reviewed, showing diffuse bilateral infiltrates, reflecting bilateral pneumonia, with the possibility of ARDS, patient diuresed, was given a dose of IV Lasix, we'll start IV Solu-Medrol, continue nebulized bronchodilators, continue BiPAP support with 10/5 and FiO2 to keep O2 sat at greater than 92%. We'll place an occlusive dressing over trache stoma to avoid volume leak. Continue with same antibiotics, blood cultures so far show no growth, today's labs have been reviewed. GI and DVT prophylaxis has been ordered. I performed a history & physical examination of the patient and discussed their management with my nurse practitioner, Dagmar Guevara. I reviewed the nurse practitioner's note and agree with the documented findings and plan of care. Lung sounds are positive for a few scattered rhonchi throughout the lung hernandez. The findings and the impression was discussed with the patient. I attest to the documentation by the nurse practitioner. Time with Patient: Greater than 30
--- NOTE | 2018-12-19 19:02 | P.PN ---
Progress Note - Text Progress Note Date: 12/19/18 Chief Complaint: Cough interval history:: This is a pleasant 43-year-old patient who was discharged from the hospital on 12/04/2018. Patient then was admitted with bilateral pneumonia suspected of aspiration pneumonia. The patient that time also had hypoxic respiratory failure felt to be somewhat induced by some drugs including methamphetamines. Patient also had acute kidney injury with acute tubal necrosis, acute rhabdomyolysis, septic shock from the pneumonia metabolic acidosis. Patient had been a cigarette smoker. The patient had a tracheostomy and a PEG tube. Prior to being discharge patient had been tolerating a regular diet. The patient had a tracheostomy removed about a week ago. Patient is having increasing intermittent cough. Shortness of breath. Also bringing up sputum. Has been feeling a bit hot and cold. Patient had a home visit to come in. For home health. The patient's mother expressed at home that she was consolable the patient. Has patient admitted. This is high suspicion of aspiration. Modified barium swallow turned out to be negative. Today-d patient's modified barium swallow was negative. That was advanced. This morning K she became increasingly short of breath and requiring high flow oxygen up to [address] Devine was informed and patient was moved to ICU. Irene on BiPAP with FiO2 50% with the IPAP of 10 and an EPAP of 5 Review of systems: Was done for constitutional, cardiovascular, GI, pulmonary. relevant finding as above Current medications are reviewed: That include: clindamycin, normal saline, DuoNeb, IV Solu-Medrol 60 mg every 6 Physical examination: VITAL SIGNS: 99.2, 96, 25, 122/88, 95% on the BiPAP GENERAL: , laying in bed, more tired EYES: Pupils equal. Conjunctiva normal. HEENT: External appearance of nose and ears normal, oral cavity grossly normal.healing tracheostomy site NECK: JVD not raised; masses not palpable. HEART: First and second heart sounds are normal; no edema. LUNGS: Respiratory rate increased, decreased breaths on some occasional crackles. ABDOMEN: Soft, nontender, liver spleen not palpable, no masses palpable. PSYCH: Tired appearing. Investigations, reviewed in the clinical context modified barium swallow-negative for aspiration White count 3.7, hemoglobin 9.1, ABGs from this morning show pH of 7.27 Potassium 4.1 BUN 5 creatinine 0.67 Chest x-ray film personally reviewed by me shows bilateral infiltrates/pulmonary edema Assessment: -Bilateral infiltrates suggestive of aspiration pneumonia in a patient who recently had his tracheostomy tube removed and symptoms have been worse since then. Patient did have a barium swallow study today negative for aspiration - worsening of respiratory status. Patient requiring BiPAP. -Acute hypoxic respiratory failure from above, worsening today -Morbid obesity BMI 41.12- -Depression and anxiety not otherwise specified -Hypokalemia -Normocytic anemia, hospital acquired from recent repeated blood draws -Left forearm wound with his currentpresent on admission Plan: Patient with ICU. Because of IV Solu-Medrol increase. Patient oriented clindamycin. Did send off a BNP that came back to be 5960. He'll also check pro calcitonin. We'll hold off normal saline and give a dose of IV Lasix 40 mg 2. Also get a cardiology opinion..
[2018-12-19] MEDS: FAMOTIDINE 20 MG/2 ML VIAL IV SCH (20:44)
[2018-12-19] MEDS: FUROSEMIDE 10 MG/ML 4 ML VIAL IV SCH (20:45)
--- NOTE | 2018-12-19 21:05 | P.PN ---
Subjective Progress Note Date: 12/19/18 this is [id number] female who is known to the service from her recent hospitalization at an outside facility. During that stay the patient had a polysubstance overdose and was found with respiratory failure in a parked vehicle. She was resuscitated in an intensive care unit. She was intubated sedated and mechanically ventilated and there was concerns to anoxic encephalopathy as well as to ARDS. The patient surprisingly improved her status quite quickly and regained her mental status. Eventually she was discharged to the outpatient psychiatric follow-up service and her regular medical care. The patient again suffered a polysubstance overdose was brought to [facility] with evidence of acidosis, mild rhabdomyolysis and respiratory failure hypoxic in nature. She required intubation and mechanical ventilation and was evidence of significant pulmonic infiltration. Initially she required vasopressor support as well as bicarbonate therapy. Eventually these improved, her renal failure improved but she remained with poor pulmonary status. Because of his tracheostomy and PEG were placed to assist with her recovery. Patient was subsequently discharged from the hospital in stable condition to home with [facility] home care. She states that her home care nurse checked her pulse ox at home and it was low and she was instructed to come into the hospital for eval uation. Patient denies having any fever or chills but feels achy all over. She complains of cough with sputum production. She came in to [facility] emergency center. She was afebrile, white count 12.8, creatinine 0.77, lactic acid 1. Blood culture was obtained which is showing no growth at 24 hours. Chest x-ray shows widespread bilateral infiltrate ill-defined consolidative opacities pneumonia versus asymmetrical pulmonary edema. Cardiac silhouette is mild to moderately enlarged. CT of the chest was negative for pulmonary edema. Widespread bilateral airspace filling pulmonary process noted. Cervical spine x-ray showed no fracture or malalignment. Patient was started on clindamycin, received 1 dose of vancomycin and admitted to the cardiac stepdown unit. She is followed by pulmonary medicine for acute hypoxic respiratory failure and bilateral pneumonia possible aspiration pneumonia. Patient has a wound to the left forearm. Patient is unable to determine how or when this occurred. Patient doesn't appear to have significant pain to the area. Tetanus was last updated 1-1/2 years ago according to the patient. 12/19/2018 patient has had worsening of her status. This helped some worsening respiratory failure requiring transient intensive care unit in utilization of BiPAP therapy. She is more comfortable today than overnight. Objective - Vital Signs Vital signs: Vital Signs Temp 99.2 F 12/19/18 16:00 Pulse 102 H 12/19/18 19:27 Resp 18 12/19/18 19:00 BP 113/92 12/19/18 19:00 Pulse Ox 96 12/19/18 19:00 Intake & Output 12/19/18 12/19/18 12/20/18 06:59 18:59 06:59 Intake Total 325 300 50 Output Total 3920 45 Balance 325 -3620 5 Weight 120.5 kg Intake: IV 300 50 Clindamycin 300 mg In 50 Dextrose 5% in Water 50 ml @ 50 mls/hr IVPB Q8HR CATHY Rx#:[id number] Sodium Chloride 0.9% 1, 250 50 000 ml @ 50 mls/hr IV . Q20H CATHY Rx#:[id number] Intake, IV Titration 200 Amount Sodium Chloride 0.9% 1, 200 000 ml @ 50 mls/hr IV . Q20H CATHY Rx#:[id number] Oral 125 0 Output: Urine 3920 45 Other: Voiding Method Toilet Indwelling Catheter # Voids 3 - Exam Gen: This is a morbidly obese 43-year-old female. Patient is in bed and appears to be comfortable and in no acute distress. HEENT: Head is atraumatic, normocephalic. Pupils equal, round. Sclerae is anicteric. Oral mucous membranes are moist. NECK: Supple. No JVD. No lymphadenopathy. No thyromegaly. LUNGS: Coarse breath sounds throughout bilaterally. No intercostal retractions. HEART: Regular rate and rhythm. No murmur. ABDOMEN: Soft. Bowel sounds are present. No masses. No tenderness. PEG tube in place to the mid epigastric area with no surrounding erythema and edema. EXTREMITIES: No pedal edema. No calf tenderness. Wound on the left dorsal forearm with eschar. There is minimal erythema. NEUROLOGICAL: Patient is awake, alert and oriented x2-3. - Labs CBC & Chem 7: 12/19/18 12:52 12/19/18 06:49 Labs: Abnormal Lab Results - Last 24 Hours (Table) 12/19/18 12/19/18 12/19/18 Range/Units 06:49 10:50 12:43 WBC (3.8-10.6) k/uL RBC (3.80-5.40) m/uL Hgb (11.4-16.0) gm/dL Hct (34.0-46.0) % RDW (11.5-15.5) % Neutrophils # (1.3-7.7) k/uL ABG pH 7.27 L (7.35-7.45) ABG pCO2 46 H (35-45) mmHg ABG pO2 362 H (83-108) mmHg ABG O2 Saturation 99.6 H (94-97) % Chloride 113 H (98-107) mmol/L Carbon Dioxide 20 L (22-30) mmol/L BUN 5 L (7-17) mg/dL POC Glucose (mg/dL) 146 H (75-99) mg/dL Calcium 8.3 L (8.4-10.2) mg/dL 12/19/18 Range/Units 12:52 WBC 13.7 H (3.8-10.6) k/uL RBC 3.39 L (3.80-5.40) m/uL Hgb 9.1 L (11.4-16.0) gm/dL Hct 28.3 L (34.0-46.0) % RDW 16.2 H (11.5-15.5) % Neutrophils # 11.6 H (1.3-7.7) k/uL ABG pH (7.35-7.45) ABG pCO2 (35-45) mmHg ABG pO2 (83-108) mmHg ABG O2 Saturation (94-97) % Chloride (98-107) mmol/L Carbon Dioxide (22-30) mmol/L BUN (7-17) mg/dL POC Glucose (mg/dL) (75-99) mg/dL Calcium (8.4-10.2) mg/dL Microbiology - Last 24 Hours (Table) 12/16/18 19:59 Blood Culture - Preliminary Blood No Growth after 48 hours Laboratory Results WBC 13.7 k/uL (3.8-10.6) H 12/19/18 12:52 RBC 3.39 m/uL (3.80-5.40) L 12/19/18 12:52 Hgb 9.1 gm/dL (11.4-16.0) L 12/19/18 12:52 Hct 28.3 % (34.0-46.0) L 12/19/18 12:52 MCV 83.3 fL (80.0-100.0) 12/19/18 12:52 MCH 26.7 pg (25.0-35.0) 12/19/18 12:52 MCHC 32.1 g/dL (31.0-37.0) 12/19/18 12:52 RDW 16.2 % (11.5-15.5) H 12/19/18 12:52 Plt Count 379 k/uL (150-450) 12/19/18 12:52 Neutrophils % 84 % 12/19/18 12:52 Lymphocytes % 11 % 12/19/18 12:52 Monocytes % 3 % 12/19/18 12:52 Eosinophils % 1 % 12/19/18 12:52 Basophils % 0 % 12/19/18 12:52 Neutrophils # 11.6 k/uL (1.3-7.7) H 12/19/18 12:52 Lymphocytes # 1.5 k/uL (1.0-4.8) 12/19/18 12:52 Monocytes # 0.4 k/uL (0-1.0) 12/19/18 12:52 Eosinophils # 0.1 k/uL (0-0.7) 12/19/18 12:52 Basophils # 0.1 k/uL (0-0.2) 12/19/18 12:52 Hypochromasia Moderate 12/19/18 12:52 Poikilocytosis Slight 12/19/18 12:52 Anisocytosis Slight 12/19/18 12:52 D-Dimer 1.85 mg/L FEU (<0.60) H 12/16/18 17:35 Sample Site LRAD 12/19/18 10:50 ABG pH 7.27 (7.35-7.45) L 12/19/18 10:50 ABG pCO2 46 mmHg (35-45) H 12/19/18 10:50 ABG pO2 362 mmHg (83-108) H 12/19/18 10:50 ABG HCO3 21 mmol/L (21-25) 12/19/18 10:50 ABG Total CO2 23 mmol/L (19-24) 12/19/18 10:50 ABG O2 Saturation 99.6 % (94-97) H 12/19/18 10:50 ABG Base Excess -5.8 mmol/L 12/19/18 10:50 Ganesh Test Yes 12/19/18 10:50 VBG pH 7.35 (7.31-7.41) 12/16/18 17:35 VBG pCO2 39 mmHg (37-51) 12/16/18 17:35 VBG HCO3 21 mmol/L (24-28) L 12/16/18 17:35 FiO2 100 % 12/19/18 10:50 Sodium 143 mmol/L (137-145) 12/19/18 06:49 Potassium 4.1 mmol/L (3.5-5.1) 12/19/18 06:49 Chloride 113 mmol/L (98-107) H 12/19/18 06:49 Carbon Dioxide 20 mmol/L (22-30) L 12/19/18 06:49 Anion Gap 10 mmol/L 12/19/18 06:49 BUN 5 mg/dL (7-17) L 12/19/18 06:49 Creatinine 0.67 mg/dL (0.52-1.04) 12/19/18 06:49 Est GFR (CKD-EPI)AfAm >90 (>60 ml/min/1.73 sqM) 12/19/18 06:49 Est GFR (CKD-EPI)NonAf >90 (>60 ml/min/1.73 sqM) 12/19/18 06:49 Glucose 95 mg/dL (74-99) 12/19/18 06:49 POC Glucose (mg/dL) 146 mg/dL (75-99) H 12/19/18 12:43 POC Glu Windows Consultant Sage Rob 12/19/18 12:43 Plasma Lactic Acid Elie 1.0 mmol/L (0.7-2.0) 12/16/18 17:35 Calcium 8.3 mg/dL (8.4-10.2) L 12/19/18 06:49 Magnesium 1.7 mg/dL (1.6-2.3) 12/16/18 17:35 NT-Pro-B Natriuret Pep 5960 pg/mL 12/19/18 06:49 Microbiology 12/16/18 19:59 Blood Blood Culture - Preliminary No Growth after 48 hours Assessment and Plan (1) Multifocal pneumonia Narrative/Plan: This 43-year-old woman has a very extensive recent past medical history regarding her repeated suicide attempts and bouts of respiratory failure. Most recently an acute lung injury requiring tracheostomy and PEG tube placement. She's now had ongoing improvement however presents to hospital with increasing shortness of breath. There is concern for potential aspiration given her recent decannulation of her tracheostomy. Her computed tomography scan reveals evidence of a pulmonary embolus seems to have some multifocal pneumonia.Currentl y she is being treated with clindamycin which will continue for the moment, swallow study is reported now evidence of aspiration. She is afebrile but does have some leukocytosis. It is unclear if the infiltrates are significantly different during her most recent stay. However clinically was more short of breath. She's feeling better with the current interventions and will be continued for now. 12/19/2018 the patient has had worsening of her status now transferred to intensive care unit requiring BiPAP therapy seems to be more comfortable now. She is comfortable denies much pain. She is much less short of breath. There are no positive cultures at this point in time they will further help direct antibiotic therapy continue dry dressing to the eschar of the wrist. She is afebrile. Current Visit: Yes Status: Acute Code(s): J18.9 - PNEUMONIA, UNSPECIFIED ORGANISM SNOMED Code(s): 976579354 (2) Acute respiratory failure with hypoxia Current Visit: No Status: Acute Code(s): J96.01 - ACUTE RESPIRATORY FAILURE WITH HYPOXIA SNOMED Code(s): 41384241 (3) Altered mental status Current Visit: No Status: Acute Code(s): R41.82 - ALTERED MENTAL STATUS, UNSPECIFIED SNOMED Code(s): 169058918
[2018-12-19] MEDS: MELATONIN 1 MG TAB PO SCH (21:22)
[2018-12-19 22:06] LABS: Glucose,Whole Blood 186 mg/dL (75-99)
[2018-12-20 00:06] LABS: Glucose,Whole Blood 173 mg/dL (75-99)
[2018-12-20] MEDS: INSULIN ASPART (NovoLOG) 100 UNIT/ML VIAL SQ SCH ×5 (00:07→23:48)
[2018-12-20 05:15] LABS: Anisocytosis Slight; HCT 28.5 % (34.0-46.0); HGB 8.8 gm/dL (11.4-16.0); Hypochromasia Slight; MCH 26.2 pg (25.0-35.0); MCHC 30.9 g/dL (31.0-37.0); MCV 84.5 fL (80.0-100.0); Mean Platelet Volume 7.8; Platelet Count 412 k/uL (150-450); Poikilocytosis Slight; RBC 3.37 m/uL (3.80-5.40); RDW 16.4 % (11.5-15.5); WBC 11.7 k/uL (3.8-10.6)
[2018-12-20 05:29] LABS: African American GFR (CKD) >90 (>60 ml/min/1.73 sqM); Anion Gap 8 mmol/L; Blood Urea Nitrogen 10 mg/dL (7-17); Calcium 8.2 mg/dL (8.4-10.2); Carbon Dioxide 29 mmol/L (22-30); Chloride 106 mmol/L (98-107); Glucose 111 mg/dL (74-99); Potassium 3.2 mmol/L (3.5-5.1); Sodium 143 mmol/L (137-145)
[2018-12-20 05:39] LABS: Glucose,Whole Blood 118 mg/dL (75-99)
[2018-12-20] MEDS: methylPREDNISolone SOD SUCCI 125 MG/2 ML VIAL IV SCH ×4 (06:41→23:48)
[2018-12-20] MEDS: PANTOPRAZOLE 40 MG TABLET PO SCH (06:42)
[2018-12-20] MEDS: HYDROcodone/APAP 5-325MG 1 EACH TAB PO PRN ×5 (06:42→23:49)
--- NOTE | 2018-12-20 06:50 | XR ---
EXAMINATION TYPE: XR chest 1V portable DATE OF EXAM: 12/20/2018 HISTORY: adventitious lung sounds. REFERENCE: Previous study dated 12/19/2018. FINDINGS: The heart remains enlarged. There is vascular congestion and pulmonary edema. I suspect sma ll effusions. IMPRESSION: CONTINUING CHANGES OF CONGESTIVE HEART FAILURE.
[2018-12-20] MEDS ORDERED: Potassium Replacement Protocol 1 EACH MISC MISCELLANE PRN (07:36)
[2018-12-20] MEDS: IPRATROPIUM-ALBUTEROL 3 ML NEB INHALATION SCH ×4 (07:37→19:44)
[2018-12-20] MEDS: ALPRAZolam 0.5 MG TAB PO PRN ×3 (08:18→19:56)
[2018-12-20] MEDS: busPIRone HCl 5 MG TAB PO SCH ×2 (08:18→19:53)
[2018-12-20] MEDS: POTASSIUM CHLORIDE ER 20 MEQ TAB.ER PO SCH ×4 (08:19→19:52)
[2018-12-20] MEDS: SERTRALINE 100 MG TAB PO SCH (08:19)
[2018-12-20] MEDS: ENOXAPARIN 40 MG/0.4 ML SYRINGE SQ SCH (08:20)
[2018-12-20] MEDS: FAMOTIDINE 20 MG/2 ML VIAL IV SCH ×2 (08:20→19:53)
[2018-12-20] MEDS: FUROSEMIDE 10 MG/ML 4 ML VIAL IV SCH (08:20)
[2018-12-20] MEDS: CLINDAMYCIN 300 MG in DEXTROSE 5% IN WATER 50 ML IVPB SCH ×6 (09:33→23:48)
[2018-12-20] MEDS: SODIUM CHLORIDE 0.9% 1,000 ML IV SCH (09:35)
--- NOTE | 2018-12-20 10:54 | P.PN ---
Subjective Progress Note Date: 12/20/18 Principal diagnosis: The patient is seen today 12/20/2018 in follow-up on the intensive care unit. She is currently awake and alert in no acute distress. Resting comfortably in b ed. She is on the high flow nasal cannula at 12 L. Intermittently utilizing the BiPAP mainly in the evenings 10/5 and 50% FiO2. Currently afebrile. Hemodynamically stable. 0.9 normal saline at 50 MLS per hour. A culture reveals no growth. White count 11.7. Hemoglobin 8.8. Creatinine 0.66. Remains on bronchodilators, clindamycin, IV Solu-Medrol. His x-ray continues to show pulmonary vascular congestion and pulmonary edema. Currently in a negative balance. We'll give additional Lasix today. Objective - Vital Signs Vital signs: Vital Signs Temp 97.7 F 12/20/18 08:00 Pulse 96 12/20/18 10:00 Resp 24 12/20/18 10:00 BP 128/86 12/20/18 10:00 Pulse Ox 96 12/20/18 10:00 Intake & Output 12/19/18 12/20/18 12/20/18 18:59 06:59 18:59 Intake Total 300 750 600 Output Total 3920 3270 1370 Balance -2611 -9875 -770 Weight 111.9 kg Intake: IV 300 650 200 Clindamycin 300 mg In 50 50 Dextrose 5% in Water 50 ml @ 50 mls/hr IVPB Q8HR CATHY Rx#:[id number] Sodium Chloride 0.9% 1, 250 600 200 000 ml @ 50 mls/hr IV . Q20H CATHY Rx#:[id number] Oral 0 100 400 Output: Urine 3920 3270 1370 Other: Voiding Method Indwelling Catheter Indwelling Catheter Indwelling Catheter - Exam GENERAL EXAM: Alert, pleasant, 43-year-old female, currently on 12 L high flow nasal cannula. Intermittently utilizing BiPAP 10/550% FiO2. HEAD: Normocephalic/atraumatic. EYES: Normal reaction of pupils, equal size. Conjunctiva pink, sclera white. NOSE: Clear with pink turbinates. THROAT: No erythema or exudates. NECK: No masses, no JVD, no thyroid enlargement, no adenopathy. Midline neck tracheostomy stoma is covered with a dressing, small amount of yellowish drainage CHEST: No chest wall deformity. Symmetrical expansion. LUNGS: Equal air entry with a few scattered rhonchi, crackles in the bases. CVS: Regular rate and rhythm, normal S1 and S2, no gallops, no murmurs, no rubs ABDOMEN: Soft, nontender. No hepatosplenomegaly, normal bowel sounds, no guarding or rigidity. EXTREMITIES: No clubbing, no edema, no cyanosis, 2+ pulses and upper and lower extremities. Left anterior forearm with large scabbed area on anterior surface MUSCULOSKELETAL: Muscle strength and tone normal. SPINE: No scoliosis or deformity SKIN: No rashes CENTRAL NERVOUS SYSTEM: No focal deficits, tone is normal in all 4 extremities. PSYCHIATRIC: Alert and oriented -3. Appropriate affect. Intact judgment and insight. - Labs CBC & Chem 7: 12/20/18 05:03 12/20/18 05:03 Labs: Abnormal Lab Results - Last 24 Hours (Table) 12/19/18 12/19/18 12/19/18 Range/Units 10:50 12:43 12:52 WBC 13.7 H (3.8-10.6) k/uL RBC 3.39 L (3.80-5.40) m/uL Hgb 9.1 L (11.4-16.0) gm/dL Hct 28.3 L (34.0-46.0) % MCHC (31.0-37.0) g/dL RDW 16.2 H (11.5-15.5) % Neutrophils # 11.6 H (1.3-7.7) k/uL ABG pH 7.27 L (7.35-7.45) ABG pCO2 46 H (35-45) mmHg ABG pO2 362 H (83-108) mmHg ABG O2 Saturation 99.6 H (94-97) % Potassium (3.5-5.1) mmol/L Glucose (74-99) mg/dL POC Glucose (mg/dL) 146 H (75-99) mg/dL Calcium (8.4-10.2) mg/dL 12/19/18 12/20/18 12/20/18 Range/Units 22:05 00:04 05:03 WBC (3.8-10.6) k/uL RBC (3.80-5.40) m/uL Hgb (11.4-16.0) gm/dL Hct (34.0-46.0) % MCHC (31.0-37.0) g/dL RDW (11.5-15.5) % Neutrophils # (1.3-7.7) k/uL ABG pH (7.35-7.45) ABG pCO2 (35-45) mmHg ABG pO2 (83-108) mmHg ABG O2 Saturation (94-97) % Potassium 3.2 L (3.5-5.1) mmol/L Glucose 111 H (74-99) mg/dL POC Glucose (mg/dL) 186 H 173 H (75-99) mg/dL Calcium 8.2 L (8.4-10.2) mg/dL 12/20/18 12/20/18 Range/Units 05:03 05:38 WBC 11.7 H (3.8-10.6) k/uL RBC 3.37 L (3.80-5.40) m/uL Hgb 8.8 L (11.4-16.0) gm/dL Hct 28.5 L (34.0-46.0) % MCHC 30.9 L (31.0-37.0) g/dL RDW 16.4 H (11.5-15.5) % Neutrophils # (1.3-7.7) k/uL ABG pH (7.35-7.45) ABG pCO2 (35-45) mmHg ABG pO2 (83-108) mmHg ABG O2 Saturation (94-97) % Potassium (3.5-5.1) mmol/L Glucose (74-99) mg/dL POC Glucose (mg/dL) 118 H (75-99) mg/dL Calcium (8.4-10.2) mg/dL Microbiology - Last 24 Hours (Table) 12/16/18 19:59 Blood Culture - Preliminary Blood No Growth after 72 hours Assessment and Plan Assessment: Assessment: #1. Acute hypoxemic and hypercapnic respiratory failure related to bilateral pneumonia, pulmonary edema. #2. Diffuse bilateral pneumonia, likely related to aspiration #3. Recent episode of acute respiratory failure following a suicide attempt with methamphetamines, marijuana, requiring intubation and has been on mechanical ventilation, and subsequent tracheostomy and PEG tube placement for failure to wean #4. Recent decannulation of tracheostomy tube #5. History of polysubstance abuse #6. Multiple suicide attempts #7. History of ARDS #8. Severe rhabdomyolysis last admission, resolved #9. Acute kidney injury during last admission, resolved #10. The of methicillin sensitive staph aureus pneumonia #11. Metabolic encephalopathy #12. History of depression #13. History of obesity Plan: The patient was seen and evaluated by Dr. Devine. Chest x-ray and labs reviewed. Still has some fluid volume overload. Given additional Lasix 40 mg this afternoon. Continue clindamycin and bronchodilators along with IV Solu-Medrol. We will increase her activity as tolerated. She is alternating between 12 L high flow nasal cannula and the BiPAP at 10/5 with 50% FiO2 maintaining O2 saturations greater than 92%. We'll continue to follow make further recommendations based on her clinical status. I, the cosigning physician, performed a history & physical examination of the patient. Lungs sounds with crackles in the bilateral posterior bases, few sc attered rhonchi. Maintaining good O2 saturations in the 90s on 12 L high flow nasal cannula alternating with BiPAP 10/550% FiO2. I discussed the assessment and plan of care with my nurse practitioner, Effie Ayala. I attest to the above note as dictated by her.
[2018-12-20 12:07] LABS: Glucose,Whole Blood 121 mg/dL (75-99)
[2018-12-20] MEDS ORDERED: FUROSEMIDE 10 MG/ML 4 ML VIAL IV ONE (15:00)
[2018-12-20 18:54] LABS: Glucose,Whole Blood 172 mg/dL (75-99)
[2018-12-20] MEDS: MELATONIN 1 MG TAB PO SCH (19:54)
[2018-12-20 21:12] LABS: Glucose,Whole Blood 141 mg/dL (75-99)
[2018-12-20 23:45] LABS: Glucose,Whole Blood 175 mg/dL (75-99)
[2018-12-21] MEDS: POTASSIUM CHLORIDE ER 20 MEQ TAB.ER PO SCH ×2 (00:42→03:00)
[2018-12-21 05:39] LABS: Anisocytosis Slight; HGB 9.6 gm/dL (11.4-16.0); Hypochromasia Slight; MCH 26.2 pg (25.0-35.0); MCHC 31.2 g/dL (31.0-37.0); MCV 84.1 fL (80.0-100.0); Mean Platelet Volume 7.3; Platelet Count 501 k/uL (150-450); Poikilocytosis Slight; RBC 3.68 m/uL (3.80-5.40); RDW 16.2 % (11.5-15.5); WBC 16.9 k/uL (3.8-10.6)
[2018-12-21] MEDS: ALPRAZolam 0.5 MG TAB PO PRN ×3 (05:44→20:27)
[2018-12-21] MEDS: methylPREDNISolone SOD SUCCI 125 MG/2 ML VIAL IV SCH (05:44)
[2018-12-21 05:45] LABS: African American GFR (CKD) >90 (>60 ml/min/1.73 sqM); Anion Gap 9 mmol/L; Blood Urea Nitrogen 21 mg/dL (7-17); Calcium 8.2 mg/dL (8.4-10.2); Carbon Dioxide 26 mmol/L (22-30); Chloride 104 mmol/L (98-107); Glucose 180 mg/dL (74-99); Sodium 139 mmol/L (137-145)
[2018-12-21] MEDS: HYDROcodone/APAP 5-325MG 1 EACH TAB PO PRN ×5 (05:58→21:38)
--- NOTE | 2018-12-21 06:11 | XR ---
EXAMINATION TYPE: XR chest 1V portable DATE OF EXAM: 12/21/2018 HISTORY: adventitious lung sounds. REFERENCE: Previous study dated 12/20/2018. FINDINGS: There is improved aeration of the right lung. Heart remains enlarged. There is vascular con gestion and mild edema. There are small, bilateral effusions. IMPRESSION: IMPROVING CHANGES OF CONGESTIVE HEART FAILURE.
[2018-12-21 07:19] LABS: Glucose,Whole Blood 159 mg/dL (75-99)
[2018-12-21] MEDS: INSULIN ASPART (NovoLOG) 100 UNIT/ML VIAL SQ SCH ×4 (07:27→20:31)
[2018-12-21] MEDS: CLINDAMYCIN 300 MG in DEXTROSE 5% IN WATER 50 ML IVPB SCH ×4 (08:22→16:21)
[2018-12-21] MEDS: PANTOPRAZOLE 40 MG TABLET PO SCH (08:22)
[2018-12-21] MEDS: FAMOTIDINE 20 MG/2 ML VIAL IV SCH (08:23)
[2018-12-21] MEDS: SERTRALINE 100 MG TAB PO SCH (08:23)
[2018-12-21] MEDS: ENOXAPARIN 40 MG/0.4 ML SYRINGE SQ SCH (08:23)
[2018-12-21] MEDS: busPIRone HCl 5 MG TAB PO SCH ×2 (08:23→20:26)
[2018-12-21] MEDS ORDERED: FUROSEMIDE 10 MG/ML 4 ML VIAL IV ONE (08:36)
[2018-12-21] MEDS: IPRATROPIUM-ALBUTEROL 3 ML NEB INHALATION SCH ×4 (08:36→19:28)
--- NOTE | 2018-12-21 09:34 | P.PN ---
Subjective Progress Note Date: 12/21/18 Principal diagnosis: Hypoxemic, shortness of breath On 12/18/2018 patient seen in follow-up on selective care unit, she is resting in bed, in no acute distress, a bit dyspneic, slightly pale, poor appetite. Denies any chest pain, actually sounds better on today's exam, less congestion, just a few scattered rhonchi, she is on 5 L of oxygen, with a pulse ox of 91%, afebrile, hemodynamically patient is stable, per the patient went down for barium swallow evaluation today, which she passed. Occasional cough, no significant phlegm production. No new chest x-rays today, today's labs have been reviewed, showing serum sodium of 142, potassium is 3.7, chloride is 114, CO2 is 22, B1 is 4, creatinine is 0.69. Blood culture showed no growth so far, she is on clindamycin antibiotic coverage, did receive a dose of vancomycin in the emergency department, which has been discontinued. No fever or chills. Tracheostomy , is covered with a dressing, small amount of yellowish drainage on the gauze. Patient is difficult IV start, and apparently nursing is reporting difficulty starting IVs. Obtain a midline catheter. On 12/19/2018 patient was noted to have increased difficulty breathing, she was noted to be desaturating her oxygenation requirement has increased, she was i nitially bumped up to 10 L high flow nasal cannula, her pulse ox was 93%, however subsequently her oxygenation continued to deteriorate, pulse socks was down to 80% on 15 L high flow, stat chest x-ray was obtained, patient was placed on BiPAP support, with pressures of 10/5, and 100%. Stat blood gases were obtained, showing mixed respiratory and metabolic acidosis, pO2 of 362, a CO2 of 46, and pH of 7.27, this was done on FiO2 100%. Patient was restarted on BiPAP support subsequently, she is lethargic, but opening her eyes to voice, lung sounds were diminished, a dose of IV Lasix was given, stat chest x-ray showed diffuse pulmonary infiltrates, with dissecting pneumonia, and possibility of ARDS. FiO2 was down to 50% based on the above mentioned blood gases, he steroids have been started, patient has been on clindamycin for antibiotic coverage, Have been unable to send a sputum culture, blood culture showed no growth. Today's labs have been reviewed, showing white blood cell count of 13.7, hemoglobin of 9.1, sodium of 143, potassium is 4.1, chloride is 113, CO2 is 20, BUN is 5, creatinine is 0.67, proBNP came back elevated at 5960. Patient diuresed a 4500 mL of dilute urine, she was transferred to the intensive care unit for closer monitoring. On 12/21/2018 patient seen in follow-up in the intensive care unit, she is currently on 12 L per high flow nasal cannula, she is awake and alert, oriented 3, looking and feeling much better, breathing easier, she is afebrile. Did wear BiPAP support last night, with pressures 10 and 5, and FiO2 of 50%. His chest x-ray shows improving changes of congestive heart failure. Yesterdaypatient received 2 more doses of IV Lasix. She has significant diuresis, she made 5400 mL of urine. And she is in negative fluid balance of 3380 mL over the last 24 hours. Lung sounds reveal some bibasilar crackles, good air entry noted bilaterally, no significant wheezes. His labs have been reviewed, showing white blood cell count is 16.9, hemoglobin of 9.6, electrolytes were within normal limits, BUN was 21 creatinine was 0.72. Cultur es showed no growth, patient remains on antibiotic coverage in the form of clindamycin for suspected aspiration pneumonia. Objective - Vital Signs Vital signs: Vital Signs Temp 98.2 F 12/21/18 00:00 Pulse 89 12/21/18 08:47 Resp 20 12/21/18 07:00 BP 140/97 12/21/18 07:00 Pulse Ox 98 12/21/18 07:00 Intake & Output 12/20/18 12/21/18 12/21/18 18:59 06:59 18:59 Intake Total 1200 900 50 Output Total 4170 1310 60 Balance -2970 -410 -10 Weight 111.2 kg Intake: IV 600 650 50 Clindamycin 300 mg In 50 50 Dextrose 5% in Water 50 ml @ 50 mls/hr IVPB Q8HR CATHY Rx#:[id number] Sodium Chloride 0.9% 1, 550 600 50 000 ml @ 50 mls/hr IV . Q20H CATHY Rx#:[id number] Oral 600 250 Output: Urine 4170 1310 60 Other: Voiding Method Indwelling Catheter Indwelling Catheter - Exam GENERAL EXAM: Alert, pleasant, 43-year-old white female, on 12 L per high flow nasal cannula currently off BiPAP support with pressures of 10/5 and FiO2 of 50% HEAD: Normocephalic/atraumatic. EYES: Normal reaction of pupils, equal size. Conjunctiva pink, sclera white. NOSE: Clear with pink turbinates. THROAT: No erythema or exudates. NECK: No masses, no JVD, no thyroid enlargement, no adenopathy. Midline neck tracheostomy stoma is covered with a dressing, small amount of yellowish drainage CHEST: No chest wall deformity. Symmetrical expansion. LUNGS: Equal air entry with basilar rales CVS: Regular rate and rhythm, normal S1 and S2, no gallops, no murmurs, no rubs ABDOMEN: Soft, nontender. No hepatosplenomegaly, normal bowel sounds, no guarding or rigidity. EXTREMITIES: No clubbing, no edema, no cyanosis, 2+ pulses and upper and lower extremities. Left anterior forearm with large scabbed area on anterior surface MUSCULOSKELETAL: Muscle strength and tone normal. SPINE: No scoliosis or deformity SKIN: No rashes CENTRAL NERVOUS SYSTEM: Alert and oriented -3. No focal deficits, tone is normal in all 4 extremities. PSYCHIATRIC: Alert and oriented -3. Appropriate affect. Intact judgment and insight. - Labs CBC & Chem 7: 12/21/18 04:50 12/21/18 04:50 Labs: Abnormal Lab Results - Last 24 Hours (Table) 12/20/18 12/20/18 12/20/18 Range/Units 05:03 11:48 12:05 WBC (3.8-10.6) k/uL RBC (3.80-5.40) m/uL Hgb (11.4-16.0) gm/dL Hct (34.0-46.0) % RDW (11.5-15.5) % Plt Count (150-450) k/uL Potassium 3.2 L (3.5-5.1) mmol/L BUN (7-17) mg/dL Glucose (74-99) mg/dL POC Glucose (mg/dL) 121 H (75-99) mg/dL Calcium (8.4-10.2) mg/dL Procalcitonin 0.14 H (0.02-0.09) ng/mL 12/20/18 12/20/18 12/20/18 Range/Units 18:50 21:10 23:10 WBC (3.8-10.6) k/uL RBC (3.80-5.40) m/uL Hgb (11.4-16.0) gm/dL Hct (34.0-46.0) % RDW (11.5-15.5) % Plt Count (150-450) k/uL Potassium 3.3 L (3.5-5.1) mmol/L BUN (7-17) mg/dL Glucose (74-99) mg/dL POC Glucose (mg/dL) 172 H 141 H (75-99) mg/dL Calcium (8.4-10.2) mg/dL Procalcitonin (0.02-0.09) ng/mL 12/20/18 12/21/18 12/21/18 Range/Units 23:43 04:50 04:50 WBC 16.9 H (3.8-10.6) k/uL RBC 3.68 L (3.80-5.40) m/uL Hgb 9.6 L (11.4-16.0) gm/dL Hct 31.0 L (34.0-46.0) % RDW 16.2 H (11.5-15.5) % Plt Count 501 H (150-450) k/uL Potassium (3.5-5.1) mmol/L BUN 21 H (7-17) mg/dL Glucose 180 H (74-99) mg/dL POC Glucose (mg/dL) 175 H (75-99) mg/dL Calcium 8.2 L (8.4-10.2) mg/dL Procalcitonin (0.02-0.09) ng/mL 12/21/18 Range/Units 07:08 WBC (3.8-10.6) k/uL RBC (3.80-5.40) m/uL Hgb (11.4-16.0) gm/dL Hct (34.0-46.0) % RDW (11.5-15.5) % Plt Count (150-450) k/uL Potassium (3.5-5.1) mmol/L BUN (7-17) mg/dL Glucose (74-99) mg/dL POC Glucose (mg/dL) 159 H (75-99) mg/dL Calcium (8.4-10.2) mg/dL Procalcitonin (0.02-0.09) ng/mL Microbiology - Last 24 Hours (Table) 12/16/18 19:59 Blood Culture - Preliminary Blood No Growth after 96 hours Assessment and Plan Plan: Assessment: #1. Acute hypoxemic and hypercapnic respiratory failure related to bilateral pneumonia, a component of CHF/fluid overload #2. Diffuse bilateral pneumonia, likely related to aspiration #3. Recent episode of acute respiratory failure following a suicide attempt with methamphetamines, marijuana, requiring intubation and has been on mechanical ventilation, and subsequent tracheostomy and PEG tube placement for failure to wean #4. Recent decannulation of tracheostomy tube #5. History of polysubstance abuse #6. Multiple suicide attempts #7. History of ARDS #8. Severe rhabdomyolysis last admission, resolved #9. Acute kidney injury during last admission, resolved #10. The of methicillin sensitive staph aureus pneumonia #11. Metabolic encephalopathy #12. History of depression #13. History of obesity Plan: Patient is breathing easier, currently tolerating nasal cannula high flow oxygen at 2 L/m, off BiPAP support. We'll give the patient additional dose of IV Lasix, she is maintaining negative fluid balance, chest x-ray shows improving changes of congestive heart failure. Obtain 2Dechocardiogram tomorrow. Support is needed, will found IV steroids to 40 mg every 8 hours, continue GI and DVT prophylaxis, culture dated remains negative thus far. I performed a history & physical examination of the patient and discussed their management with my nurse practitioner, Dagmar Guevara. I reviewed the nurse practitioner's note and agree with the documented findings and plan of care. Lung sounds are positive for a few scattered rhonchi throughout the lung hernandez. The findings and the impression was discussed with the patient. I attest to the documentation by the nurse practitioner. Time with Patient: Less than 30
[2018-12-21 11:55] LABS: Glucose,Whole Blood 131 mg/dL (75-99)
[2018-12-21] MEDS: methylPREDNISolone SOD SUCCI 40 MG/ML 1 ML VIAL IV SCH (16:21)
[2018-12-21] MEDS: SODIUM CHLORIDE 0.9% 1,000 ML IV SCH (16:21)
[2018-12-21 16:59] LABS: Glucose,Whole Blood 128 mg/dL (75-99)
--- NOTE | 2018-12-21 17:08 | P.PN ---
Progress Note - Text Progress Note Date: 12/20/18 Chief Complaint: Cough interval history:: This is a pleasant 43-year-old patient who was discharged from the hospital on 12/04/2018. Patient then was admitted with bilateral pneumonia suspected of aspiration pneumonia. The patient that time also had hypoxic respiratory failure felt to be somewhat induced by some drugs including methamphetamines. Patient also had acute kidney injury with acute tubal necrosis, acute rhabdomyolysis, septic shock from the pneumonia metabolic acidosis. Patient had been a cigarette smoker. The patient had a tracheostomy and a PEG tube. Prior to being discharge patient had been tolerating a regular diet. The patient had a tracheostomy removed about a week ago. Patient is having increasing intermittent cough. Shortness of breath. Also bringing up sputum. Has been feeling a bit hot and cold. Patient had a home visit to come in. For home health. The patient's mother expressed at home that she was consolable the patient. Has patient admitted. This is high suspicion of aspiration. Modified barium swallow turned out to be negative. Today-patient was given IV Lasix to which she responded well. Feeling much better this morning. More restful. Breathing is better. Review of systems: Was done for constitutional, cardiovascular, GI, pulmonary. relevant finding as above Current medications are reviewed: That include: clindamycin, normal saline, DuoNeb, IV Solu-Medrol 60 mg every 6 Physical examination: VITAL SIGNS: 97.9, 101, 31, 128/88, 92% on 10 L GENERAL: , laying in bed, shaking more comfortable EYES: Pupils equal. Conjunctiva normal. HEENT: External appearance of nose and ears normal, oral cavity grossly normal.healing tracheostomy site NECK: JVD not raised; masses not palpable. HEART: First and second heart sounds are normal; no edema. LUNGS: Respiratory rate increased, decreased breaths on decreased crackles. ABDOMEN: Soft, nontender, liver spleen not palpable, no masses palpable. PSYCH: Awake and answering questions. DERMATOLOGICAL: Left forearm wound, present on admission Investigations, reviewed in the clinical context modified barium swallow-negative for aspiration White count 11.7, 8.8, 412, potassium 3.2, creatinine 0.66, pro calcitonin 0.14, Chest x-ray-was slightly reviewed by me shows venous prominence Assessment: -Bilateral infiltrates suggestive of aspiration pneumonia in a patient who recently had his tracheostomy tube removed and symptoms have been worse since then. Patient did have a barium swallow study today negative for aspiration -Acute pulmonary edema cause unclear responding to IV Lasix -Acute hypoxic respiratory failure from above, , required BiPAP with some improvement today -Morbid obesity BMI 38.4- -Depression and anxiety not otherwise specified -Hypokalemia -Normocytic anemia, hospital acquired from recent repeated blood draws -Left forearm wound with his present on admission Plan: Patient has done better with. IV Lasix. Continue the same for at least 1 more dose. Repeat chest x-ray in the morning. 2-D echocardiogram done about 4 weeks ago showed EF of 60-65%.
[2018-12-21] MEDS: MELATONIN 1 MG TAB PO SCH (20:26)
[2018-12-21 20:30] LABS: Glucose,Whole Blood 195 mg/dL (75-99)
--- NOTE | 2018-12-21 22:12 | P.PN ---
Progress Note - Text Progress Note Date: 12/21/18 Chief Complaint: Cough interval history:: This is a pleasant 43-year-old patient who was discharged from the hospital on 12/04/2018. Patient then was admitted with bilateral pneumonia suspected of aspiration pneumonia. The patient that time also had hypoxic respiratory failure felt to be somewhat induced by some drugs including methamphetamines. Patient also had acute kidney injury with acute tubal necrosis, acute rhabdomyolysis, septic shock from the pneumonia metabolic acidosis. Patient had been a cigarette smoker. The patient had a tracheostomy and a PEG tube. Prior to being discharge patient had been tolerating a regular diet. The patient had a tracheostomy removed about a week ago. Patient is having increasing intermittent cough. Shortness of breath. Also bringing up sputum. Has been feeling a bit hot and cold. Patient had a home visit to come in. For home health. The patient's mother expressed at home that she was consolable the patient. Has patient admitted. This is high suspicion of aspiration. Modified barium swallow turned out to be negative. Patient was diagnosed palliative aspiration pneumonia and acute fluid overload. Today-better with IV Lasix. 2 still requiring high flow oxygen at 10 L. Breathing is better. Regular diet. In the ICU. Review of systems: Was done for constitutional, cardiovascular, GI, pulmonary. relevant finding as above Current medications are reviewed: That include: clindamycin, stop normal saline, DuoNeb, Solu-Medrol 40 every 8, did get IV Lasix Physical examination: VITAL SIGNS: 98.4, 84, 24, 122/91, 91% on 12 L GENERAL: , laying in bed, eating a bit better EYES: Pupils equal. Conjunctiva normal. HEENT: External appearance of nose and ears normal, oral cavity grossly normal.healing tracheostomy site NECK: JVD not raised; masses not palpable. HEART: First and second heart sounds are normal; no edema. LUNGS: Respiratory rate increased, improved air entry ABDOMEN: Soft, nontender, liver spleen not palpable, no masses palpable. PSYCH: Awake and answering questions. DERMATOLOGICAL: Left forearm wound, present on admission Investigations, reviewed in the clinical context modified barium swallow-negative for aspiration White count 16.9, hemoglobin 9.6, potassium 4.0, creatinine 0.7 to Chest x-ray-was slightly reviewed by me shows venous prominence Assessment: -Bilateral infiltrates suggestive of aspiration pneumonia in a patient who recently had his tracheostomy tube removed and symptoms have been worse since then. Patient did have a barium swallow study today negative for aspiration -Acute pulmonary edema cause unclear responding to IV Lasix -Acute hypoxic respiratory failure from above, , required BiPAP , -Morbid obesity BMI 38.4- -Depression and anxiety not otherwise specified -Hypokalemia -Normocytic anemia, hospital acquired from recent repeated blood draws -Left forearm wound with his present on admission Plan: Expiration for patient's bradycardia was unclear. Recent 2-D echocardiogram showed a preserved LV function. Currently consultation is pending. cut Back on [employer]
[2018-12-22] MEDS: CLINDAMYCIN 300 MG in DEXTROSE 5% IN WATER 50 ML IVPB SCH ×6 (00:06→16:49)
[2018-12-22] MEDS: methylPREDNISolone SOD SUCCI 40 MG/ML 1 ML VIAL IV SCH ×3 (00:07→16:49)
[2018-12-22 06:29] LABS: HCT 33.3 % (34.0-46.0); HGB 10.4 gm/dL (11.4-16.0); Hypochromasia Moderate; MCH 26.2 pg (25.0-35.0); MCHC 31.2 g/dL (31.0-37.0); Mean Platelet Volume 7.9; Platelet Count 508 k/uL (150-450); Poikilocytosis Slight; RBC 3.96 m/uL (3.80-5.40); RDW 15.8 % (11.5-15.5); WBC 16.1 k/uL (3.8-10.6)
[2018-12-22 06:58] LABS: Glucose,Whole Blood 137 mg/dL (75-99)
[2018-12-22 07:00] LABS: African American GFR (CKD) >90 (>60 ml/min/1.73 sqM); Anion Gap 8 mmol/L; Blood Urea Nitrogen 26 mg/dL (7-17); Calcium 8.4 mg/dL (8.4-10.2); Carbon Dioxide 28 mmol/L (22-30); Chloride 103 mmol/L (98-107); Glucose 140 mg/dL (74-99); Potassium 3.8 mmol/L (3.5-5.1); Sodium 139 mmol/L (137-145)
[2018-12-22] MEDS ORDERED: FUROSEMIDE 10 MG/ML 4 ML VIAL IV SCH (07:00)
[2018-12-22] MEDS: ALPRAZolam 0.5 MG TAB PO PRN ×3 (07:09→18:27)
[2018-12-22] MEDS: HYDROcodone/APAP 5-325MG 1 EACH TAB PO PRN ×4 (07:09→20:21)
[2018-12-22] MEDS: INSULIN ASPART (NovoLOG) 100 UNIT/ML VIAL SQ SCH ×4 (07:12→20:35)
[2018-12-22] MEDS: PANTOPRAZOLE 40 MG TABLET PO SCH (07:12)
[2018-12-22] MEDS: IPRATROPIUM-ALBUTEROL 3 ML NEB INHALATION SCH ×4 (07:41→20:50)
[2018-12-22] MEDS ORDERED: POTASSIUM CHLORIDE ER 20 MEQ TAB.ER PO SCH (08:00)
--- NOTE | 2018-12-22 08:07 | XR ---
EXAMINATION TYPE: XR chest 1V portable DATE OF EXAM: 12/22/2018 COMPARISON: 12/21/2018 HISTORY: Abnormal x-ray TECHNIQUE: Single frontal view of the chest is obtained. FINDINGS: Diffuse bilateral patchy infiltrate is seen. Small right pleural effusion suspected. Heart size stable. No pneumothorax. IMPRESSION: Bilateral patchy infiltrate correlate for pneumonia versus CHF.
[2018-12-22] MEDS: SERTRALINE 100 MG TAB PO SCH (08:22)
[2018-12-22] MEDS: ENOXAPARIN 40 MG/0.4 ML SYRINGE SQ SCH (08:23)
[2018-12-22] MEDS: busPIRone HCl 5 MG TAB PO SCH ×2 (08:23→20:19)
--- NOTE | 2018-12-22 11:42 | ECHOF ---
Referral Reason:shortness of breath, pulmonary edema MEASUREMENTS -------- HEIGHT: 170.2 cm WEIGHT: 111.1 kg BP: IVSd: 1.1 cm (0.6 - 1.1) LVIDd: 3.0 cm (3.9 - 5.3) LVPWd: 1.4 cm (0.6 - 1.1) IVSs: 1.3 cm LVIDs: 1.7 cm LVPWs: 1.6 cm Ao Diam: 3.3 cm (2.0 - 3.7) AV Cusp: 1.5 cm (1.5 - 2.6) LA Diam: 3.0 cm (2.7 - 3.8) MV EXCURSION: 8.677 mm (> 18.000) MV EF SLOPE: 33 mm/s (70 - 150) EPSS: 0.7 cm MV E Rodney: 0.56 m/s MV DecT: 76 ms MV A Rodney: 0.84 m/s MV E/A Ratio: 0.67 RAP: 5.00 mmHg RVSP: 17.18 mmHg FINDINGS -------- Sinus rhythm. This was a technically difficult study with suboptimal views. The left ventricular size is normal. There is mild concentric left ventricular hypertrophy. Overa ll left ventricular systolic function is normal with, an EF between 55 - 60 %. The diastolic fillin g pattern is normal for the age of the patient 8.01. Inderterminate Diastolic Dysfunction The right ventricle is normal in size. The left atrial size is normal. The right atrial size is normal. Lumason used The aortic valve is trileaflet and appears structurally normal. The mitral valve is normal. There is trace mitral regurgitation. The tricuspid valve appears structurally normal. Trace tricuspid regurgitation present. Right milan tricular systolic pressure is normal at < 35 mmHg. There is no pulmonic regurgitation present. The aortic root size is normal. IVC Not well visulized. There is no pericardial effusion. CONCLUSIONS -------- 1. Sinus rhythm. 2. This was a technically difficult study with suboptimal views. 3. The left ventricular size is normal. 4. There is mild concentric left ventricular hypertrophy. 5. Overall left ventricular systolic function is normal with, an EF between 55 - 60 %. 6. The diastolic filling pattern is normal for the age of the patient 8.01 7. Inderterminate Diastolic Dysfunction 8. The right ventricle is normal in size. 9. The left atrial size is normal. 10. The right atrial size is normal. 11. Lumason used 12. The aortic valve is trileaflet and appears structurally normal. 13. The mitral valve is normal. 14. There is trace mitral regurgitation. 15. The tricuspid valve appears structurally normal. 16. Trace tricuspid regurgitation present. 17. Right ventricular systolic pressure is normal at < 35 mmHg. 18. There is no pulmonic regurgitation present. 19. The aortic root size is normal. 20. IVC Not well visulized. 21. There is no pericardial effusion. WEB PROJECT MANAGER: Britt Roberto RDCS
[2018-12-22 11:46] LABS: Glucose,Whole Blood 122 mg/dL (75-99)
[2018-12-22 17:03] LABS: Glucose,Whole Blood 159 mg/dL (75-99)
--- NOTE | 2018-12-22 17:41 | P.PN ---
Subjective very pleasant 43-year-old female who was admitted to the ICU for shortness of breath.workup in progress for possible CHF. She is on Lasixshe was also found to have pneumonia possible thoughts are given to aspiration pneumonia. She is on clindamycin for that. She is also on steroids. She still on 8 L of oxygen. She says that she's feeling little better. She still coughing No chest pain racing heart, no abdominal pain, nausea and vomiting, no diarrhea or constipation Objective - Vital Signs Vital signs: Vital Signs Temp 98.2 F 12/22/18 16:00 Pulse 90 12/22/18 17:06 Resp 14 12/22/18 16:00 BP 118/80 12/22/18 16:00 Pulse Ox 98 12/22/18 16:50 Intake & Output 12/21/18 12/22/18 12/22/18 18:59 06:59 18:59 Intake Total 900 600 700 Output Total 2350 620 1870 Balance -0540 20 -1170 Weight 109.5 kg Intake: IV 600 600 220 Clindamycin 300 mg In 50 Dextrose 5% in Water 50 ml @ 50 mls/hr IVPB Q8HR [facility]ATH[facility] Rx#:[id number] Sodium Chloride 0.9% 1, 600 600 170 000 ml @ 50 mls/hr IV . Q20H [facility]ATHY Rx#:[id number] Oral 300 480 Output: Urine 2350 620 1870 Other: Voiding Method Indwelling Catheter Indwelling Catheter Indwelling Catheter - Exam On exam, alert and oriented x3. HEENT: Conjunctivae normal. eyes normal. NECK: No JVD. No thyroid enlargement. No LNs CARDIOVASCULAR: S1, S2 muffled. No murmur RESPIRATION: Breath sounds diminished in the bases. No rhonchi or crackles. No bronchial breathing. ABDOMEN: Soft, nontender . No guarding. no masses palpable. No ascites, No hepatosplenomegaly.Bowel sounds heard. LEGS: No edema. no swelling NERVOUS SYSTEM: Cranial N 2-12 grossly normal. Moves all 4 limbs. No focal deficits. No sensory deficit. No signs of cerebellar dysfucntion. Skin: no ulcer no rash - Labs CBC & Chem 7: 12/22/18 05:23 12/22/18 05:23 Labs: Abnormal Lab Results - Last 24 Hours (Table) 12/21/18 12/22/1819 Range/Units 20:28 05:23 05:23 WBC 16.1 H (3.8-10.6) k/uL Hgb 10.4 L (11.4-16.0) gm/dL Hct 33.3 L (34.0-46.0) % RDW 15.8 H (11.5-15.5) % Plt Count 508 H (150-450) k/uL ESR (0-20) mm/hr BUN 26 H (7-17) mg/dL Glucose 140 H (74-99) mg/dL POC Glucose (mg/dL) 195 H (75-99) mg/dL Creatine Kinase (30-135) U/L 12/22/18 12/22/18 12/22/18 Range/Units 06:56 11:44 12:35 WBC (3.8-10.6) k/uL Hgb (11.4-16.0) gm/dL Hct (34.0-46.0) % RDW (11.5-15.5) % Plt Count (150-450) k/uL ESR 62 H (0-20) mm/hr BUN (7-17) mg/dL Glucose (74-99) mg/dL POC Glucose (mg/dL) 137 H 122 H (75-99) mg/dL Creatine Kinase (30-135) U/L 12/22/18 12/22/18 Range/Units 12:35 17:02 WBC (3.8-10.6) k/uL Hgb (11.4-16.0) gm/dL Hct (34.0-46.0) % RDW (11.5-15.5) % Plt Count (150-450) k/uL ESR (0-20) mm/hr BUN (7-17) mg/dL Glucose (74-99) mg/dL POC Glucose (mg/dL) 159 H (75-99) mg/dL Creatine Kinase <20 L (30-135) U/L Microbiology - Last 24 Hours (Table) 12/16/18 19:59 Blood Culture - Preliminary Blood No Growth after 120 hours Assessment and Plan Assessment: - acute hypoxic and hypercapnic respiratory failure. Due to combination of pneumonia and CHF/fluid overload - possible aspiration pneumonia - Status post PEG tube placement following suicide attempt where the patient required intubation with subsequent tracheostomy. Patient had recent decannulation of the tracheostomy tube - History of polysubstance abuse - multiple suicide attempts - History of ours - History of depression Plan - Continue antibiotics and steroids as per pulmonology recommendations - Possible biopsy of the lung to rule out the cause - Continue current management - DVT and GI prophylaxis - We'll followupon the patient Time with Patient: Greater than 30
--- NOTE | 2018-12-22 18:12 | P.PN ---
Subjective Progress Note Date: 12/22/18 On 12/22/2018 and seeing this patient for a follow-up. The patient is currently on high flow oxygen 8 L per minute nasal cannula. Oxidation is gradually improving. The patient developed diffuse but the pulmonary infiltrates and she presented again with hypoxic respiratory failure. The patient is gradually improving. The patient was covered with broad-spectrum antibiotics. The patient was also covered with IV Solu-Medrol. The patient is receiving a combination of DuoNeb about treatments around the clock, IV clindamycin and IV Solu-Medrol. The patient is currently on 40 mg of IV Solu-Medrol every 8 hours pH is feeling better. She is less short of breath. The chest x-ray from today showing bilateral patchy pulmonary infiltrates. Echocardiac Ismael was repeated and the patient was found to have an ejection fraction of 55-60% and diastolic heart failure. There was mild concentric left ventricular hypertrophy. No evidence of any pericardial effusion. Repeat CPK was less than 20. BNP level is 601. Sed rate is at 62. The pro calcitonin level at the time of admission was 0.14. She is, indicating. Tracheostomy site is healing nicely. No evidence of any significant leak from the stoma. The area is well dressed for now. The patient is also a PEG tube in place which is in good location and there is no evidence of any surrounding erythema or infection. Objective - Vital Signs Vital signs: Vital Signs Temp 98.1 F 12/22/18 17:00 Pulse 90 12/22/18 17:06 Resp 12 12/22/18 17:00 BP 117/75 12/22/18 17:00 Pulse Ox 97 12/22/18 17:00 Intake & Output 12/21/18 12/22/18 12/22/18 18:59 06:59 18:59 Intake Total 900 600 720 Output Total 2350 620 2110 Balance -6760 20 -1390 Weight 109.5 kg Intake: IV 600 600 240 Clindamycin 300 mg In 50 Dextrose 5% in Water 50 ml @ 50 mls/hr IVPB Q8HR [facility] Rx#:[id number] Sodium Chloride 0.9% 1, 600 600 190 000 ml @ 50 mls/hr IV . Q20H [facility] Rx#:[id number] Oral 300 480 Output: Urine 2350 620 2110 Other: Voiding Method Indwelling Catheter Indwelling Catheter Indwelling Catheter - Exam GENERAL EXAM: Alert, pleasant, 43-year-old white female, on 8 L per high flow nasal cannula HEAD: Normocephalic/atraumatic. EYES: Normal reaction of pupils, equal size. Conjunctiva pink, sclera white. NOSE: Clear with pink turbinates. THROAT: No erythema or exudates. NECK: No masses, no JVD, no thyroid enlargement, no adenopathy. Midline neck tracheostomy stoma is covered with a dressing, small amount of yellowish drainage CHEST: No chest wall deformity. Symmetrical expansion. LUNGS: Equal air entry with basilar rales CVS: Regular rate and rhythm, normal S1 and S2, no gallops, no murmurs, no rubs ABDOMEN: Soft, nontender. No hepatosplenomegaly, normal bowel sounds, no guarding or rigidity. EXTREMITIES: No clubbing, no edema, no cyanosis, 2+ pulses and upper and lower extremities. Left anterior forearm with large scabbed area on anterior surface MUSCULOSKELETAL: Muscle strength and tone normal. SPINE: No scoliosis or deformity SKIN: No rashes CENTRAL NERVOUS SYSTEM: Alert and oriented -3. No focal deficits, tone is normal in all 4 extremities. PSYCHIATRIC: Alert and oriented -3. Appropriate affect. Intact judgment and insight. - Labs CBC & Chem 7: 12/22/18 05:23 12/22/18 05:23 Labs: Abnormal Lab Results - Last 24 Hours (Table) 12/21/18 12/22/18 12/22/18 Range/Units 20:28 05:23 05:23 WBC 16.1 H (3.8-10.6) k/uL Hgb 10.4 L (11.4-16.0) gm/dL Hct 33.3 L (34.0-46.0) % RDW 15.8 H (11.5-15.5) % Plt Count 508 H (150-450) k/uL ESR (0-20) mm/hr BUN 26 H (7-17) mg/dL Glucose 140 H (74-99) mg/dL POC Glucose (mg/dL) 195 H (75-99) mg/dL Creatine Kinase (30-135) U/L 12/22/18 12/22/18 12/22/18 Range/Units 06:56 11:44 12:35 WBC (3.8-10.6) k/uL Hgb (11.4-16.0) gm/dL Hct (34.0-46.0) % RDW (11.5-15.5) % Plt Count (150-450) k/uL ESR 62 H (0-20) mm/hr BUN (7-17) mg/dL Glucose (74-99) mg/dL POC Glucose (mg/dL) 137 H 122 H (75-99) mg/dL Creatine Kinase (30-135) U/L 12/22/18 12/22/18 Range/Units 12:35 17:02 WBC (3.8-10.6) k/uL Hgb (11.4-16.0) gm/dL Hct (34.0-46.0) % RDW (11.5-15.5) % Plt Count (150-450) k/uL ESR (0-20) mm/hr BUN (7-17) mg/dL Glucose (74-99) mg/dL POC Glucose (mg/dL) 159 H (75-99) mg/dL Creatine Kinase <20 L (30-135) U/L Microbiology - Last 24 Hours (Table) 12/16/18 19:59 Blood Culture - Preliminary Blood No Growth after 120 hours Assessment and Plan Plan: #1. Acute hypoxemic and hypercapnic respiratory failure related to recurrent diffuse bilateral pulmonary infiltrates, consider CHF/diastolic heart failure, consider BOOP, consider recurrent aspiration might consider he currently is in a follicular pneumonias. #2. Diffuse bilateral pneumonia, secondary hypoxic respiratory failure patient is status post a cath in the tube insertion which was decannulated and the site is healing nicely. #3. Recent episode of acute respiratory failure following a suicide attempt with methamphetamines, marijuana, requiring intubation and has been on mechanical ventilation, and subsequent tracheostomy and PEG tube placement for failure to wean #4. Recent decannulation of tracheostomy tube #5. History of polysubstance abuse #6. Multiple suicide attempts #7. History of ARDS #8. Severe rhabdomyolysis last admission, resolved #9. Acute kidney injury during last admission, resolved #10. The of methicillin sensitive staph aureus pneumonia #11. Metabolic encephalopathy #12. History of depression #13. History of obesity Plan Continue IV Solu-Medrol. Continue bronchodilators. Wean down the FiO2 gradually and the patient is currently at 8 L per minute nasal cannula. Echocardiogram was noted. Initiate a connective tissue disease workup including rheumatoid factor, LAQUITA, P and C ANCA, sed rate, and the patient may ultimately need a bronchoscopy with transbronchial biopsy to rule out the above-mentioned possibilities. We'll continue to follow. We'll keep the patient I follow 24 hours. Repeat chest x-ray in the morning. Urine drug screen was reordered.
[2018-12-22] MEDS: MELATONIN 1 MG TAB PO SCH (20:18)
[2018-12-22 20:33] LABS: Glucose,Whole Blood 154 mg/dL (75-99)
[2018-12-23] MEDS: CLINDAMYCIN 300 MG in DEXTROSE 5% IN WATER 50 ML IVPB SCH ×8 (00:18→23:37)
[2018-12-23] MEDS: ALPRAZolam 0.5 MG TAB PO PRN ×4 (00:19→23:37)
[2018-12-23] MEDS: methylPREDNISolone SOD SUCCI 40 MG/ML 1 ML VIAL IV SCH ×4 (00:19→23:37)
[2018-12-23 00:57] LABS: Urine Alcohol Negative (Negative); Urine Barbiturate Negative (Negative); Urine Cocaine Negative (Negative); Urine Methadone Negative (Negative); Urine Opiates Positive (Negative); Urine Phencyclidine Negative (Negative)
[2018-12-23] MEDS: HYDROcodone/APAP 5-325MG 1 EACH TAB PO PRN ×5 (05:19→23:37)
[2018-12-23 05:45] LABS: Anisocytosis Slight; HCT 33.8 % (34.0-46.0); HGB 10.5 gm/dL (11.4-16.0); Hypochromasia Moderate; MCH 26.3 pg (25.0-35.0); MCHC 31.1 g/dL (31.0-37.0); MCV 84.4 fL (80.0-100.0); Mean Platelet Volume 7.6; Platelet Count 522 k/uL (150-450); Poikilocytosis Slight; RBC 4.01 m/uL (3.80-5.40); RDW 16.6 % (11.5-15.5); WBC 16.5 k/uL (3.8-10.6)
[2018-12-23 06:00] LABS: African American GFR (CKD) >90 (>60 ml/min/1.73 sqM); Anion Gap 10 mmol/L; Blood Urea Nitrogen 21 mg/dL (7-17); Calcium 8.3 mg/dL (8.4-10.2); Carbon Dioxide 26 mmol/L (22-30); Chloride 103 mmol/L (98-107); Glucose 151 mg/dL (74-99); Potassium 3.6 mmol/L (3.5-5.1); Sodium 139 mmol/L (137-145)
[2018-12-23 06:54] LABS: Glucose,Whole Blood 176 mg/dL (75-99)
[2018-12-23] MEDS: INSULIN ASPART (NovoLOG) 100 UNIT/ML VIAL SQ SCH ×4 (06:56→19:49)
[2018-12-23] MEDS: PANTOPRAZOLE 40 MG TABLET PO SCH (06:56)
[2018-12-23] MEDS ORDERED: POTASSIUM CHLORIDE ER 20 MEQ TAB.ER PO SCH (07:00)
[2018-12-23] MEDS: IPRATROPIUM-ALBUTEROL 3 ML NEB INHALATION SCH ×4 (07:32→20:07)
[2018-12-23] MEDS: busPIRone HCl 5 MG TAB PO SCH ×2 (08:53→21:21)
[2018-12-23] MEDS: SERTRALINE 100 MG TAB PO SCH (08:53)
[2018-12-23] MEDS: FUROSEMIDE 40 MG TAB PO SCH (08:53)
[2018-12-23 11:39] VITALS: BMI 37.7
[2018-12-23 11:53] LABS: Glucose,Whole Blood 205 mg/dL (75-99)
[2018-12-23] MEDS ORDERED: Potassium Replacement Protocol 1 EACH MISC MISCELLANE PRN (13:07)
[2018-12-23 13:42] LABS: C-ANCA <1:20 Titer (<1:20); P-ANCA <1:20 Titer (<1:20)
[2018-12-23] MEDS: POTASSIUM CHLORIDE ER 20 MEQ TAB.ER PO SCH ×2 (13:42→15:19)
--- NOTE | 2018-12-23 15:34 | P.PN ---
Subjective very pleasant 43-year-old female who was admitted to the ICU for shortness of breath.workup in progress for possible CHF. She is on Lasixshe was also found to have pneumonia possible thoughts are given to aspiration pneumonia. She is on clindamycin for that. She is also on steroids. She still on 8 L of oxygen. She says that she's feeling little better. She still coughing No chest pain racing heart, no abdominal pain, nausea and vomiting, no diarrhea or constipation 12/23/2018 Patient says that her breathing is little better than yesterday. She is coughing still. No chest pain or racing heart No cough no shortness of breath Oxygen requirements have gone down. She is on 2 L now Objective - Vital Signs Vital signs: Vital Signs Temp 98.1 F 12/23/18 12:00 Pulse 96 12/23/18 15:16 Resp 22 12/23/18 12:00 BP 145/92 12/23/18 12:00 Pulse Ox 93 L 12/23/18 12:00 Intake & Output 12/22/18 12/23/18 12/23/18 18:59 06:59 18:59 Intake Total 790 170 70 Output Total 2430 560 430 Balance -1640 -390 -360 Weight 109.3 kg 109.3 kg Intake: IV 310 170 70 .9 100 20 Clindamycin 300 mg In 100 50 50 Dextrose 5% in Water 50 ml @ 50 mls/hr IVPB Q8HR [facility] Rx#:[id number] Sodium Chloride 0.9% 1, 210 20 000 ml @ 50 mls/hr IV . Q20H [facility] Rx#:[id number] Oral 480 Output: Urine 2430 560 430 Other: Voiding Method Indwelling Catheter Indwelling Catheter Indwelling Catheter - Exam On exam, alert and oriented x3. HEENT: Conjunctivae normal. eyes normal. NECK: No JVD. No thyroid enlargement. No LNs CARDIOVASCULAR: S1, S2 muffled. No murmur RESPIRATION: Breath sounds diminished in the bases. No rhonchi or crackles. No bronchial breathing. ABDOMEN: Soft, nontender . No guarding. no masses palpable. No ascites, No hepatosplenomegaly.Bowel sounds heard. LEGS: No edema. no swelling NERVOUS SYSTEM: Cranial N 2-12 grossly normal. Moves all 4 limbs. No focal deficits. No sensory deficit. No signs of cerebellar dysfucntion. Skin: no ulcer no rash - Labs CBC & Chem 7: 12/23/18 05:00 12/23/18 11:35 Labs: Abnormal Lab Results - Last 24 Hours (Table) 12/22/18 12/22/18 12/22/18 Range/Units 15:20 17:02 20:31 WBC (3.8-10.6) k/uL Hgb (11.4-16.0) gm/dL Hct (34.0-46.0) % RDW (11.5-15.5) % Plt Count (150-450) k/uL BUN (7-17) mg/dL Glucose (74-99) mg/dL POC Glucose (mg/dL) 159 H 154 H (75-99) mg/dL Calcium (8.4-10.2) mg/dL Urine Opiates Screen Positive H (Negative) ng/mL U Benzodiazepines Scrn Positive H (Negative) ng/mL 12/23/18 12/23/18 12/23/18 Range/Units 05:00 05:00 06:52 WBC 16.5 H (3.8-10.6) k/uL Hgb 10.5 L (11.4-16.0) gm/dL Hct 33.8 L (34.0-46.0) % RDW 16.6 H (11.5-15.5) % Plt Count 522 H (150-450) k/uL BUN 21 H (7-17) mg/dL Glucose 151 H (74-99) mg/dL POC Glucose (mg/dL) 176 H (75-99) mg/dL Calcium 8.3 L (8.4-10.2) mg/dL Urine Opiates Screen (Negative) ng/mL U Benzodiazepines Scrn (Negative) ng/mL 12/23/18 Range/Units 11:52 WBC (3.8-10.6) k/uL Hgb (11.4-16.0) gm/dL Hct (34.0-46.0) % RDW (11.5-15.5) % Plt Count (150-450) k/uL BUN (7-17) mg/dL Glucose (74-99) mg/dL POC Glucose (mg/dL) 205 H (75-99) mg/dL Calcium (8.4-10.2) mg/dL Urine Opiates Screen (Negative) ng/mL U Benzodiazepines Scrn (Negative) ng/mL Microbiology - Last 24 Hours (Table) 12/16/18 19:59 Blood Culture - Final Blood No Growth after 144 hours Assessment and Plan Assessment: - acute hypoxic and hypercapnic respiratory failure. Due to combination of pneumonia and CHF/fluid overload - possible aspiration pneumonia - Status post PEG tube placement following suicide attempt where the patient required intubation with subsequent tracheostomy. Patient had recent decannulation of the tracheostomy tube - History of polysubstance abuse - multiple suicide attempts - History of ours - History of depression Plan 12/22/2018 - Continue antibiotics and steroids as per pulmonology recommendations - Possible biopsy of the lung to rule out the cause - Continue current management - DVT and GI prophylaxis - We'll followupon the patient 12/23/2018 We'll continue antibiotics Pulmonology following the patient Continue current management Follow the patient
[2018-12-23 17:27] LABS: Glucose,Whole Blood 207 mg/dL (75-99)
--- NOTE | 2018-12-23 17:51 | P.PN ---
Subjective Progress Note Date: 12/23/18 Principal diagnosis: Hypoxemic, shortness of breath On 12/18/2018 patient seen in follow-up on selective care unit, she is resting in bed, in no acute distress, a bit dyspneic, slightly pale, poor appetite. Denies any chest pain, actually sounds better on today's exam, less congestion, just a few scattered rhonchi, she is on 5 L of oxygen, with a pulse ox of 91%, afebrile, hemodynamically patient is stable, per the patient went down for barium swallow evaluation today, which she passed. Occasional cough, no significant phlegm production. No new chest x-rays today, today's labs have been reviewed, showing serum sodium of 142, potassium is 3.7, chloride is 114, CO2 is 22, B1 is 4, creatinine is 0.69. Blood culture showed no growth so far, she is on clindamycin antibiotic coverage, did receive a dose of vancomycin in the emergency department, which has been discontinued. No fever or chills. Tracheostomy , is covered with a dressing, small amount of yellowish drainage on the gauze. Patient is difficult IV start, and apparently nursing is reporting difficulty starting IVs. Obtain a midline catheter. On 12/19/2018 patient was noted to have increased difficulty breathing, she was noted to be desaturating her oxygenation requirement has increased, she was i nitially bumped up to 10 L high flow nasal cannula, her pulse ox was 93%, however subsequently her oxygenation continued to deteriorate, pulse socks was down to 80% on 15 L high flow, stat chest x-ray was obtained, patient was placed on BiPAP support, with pressures of 10/5, and 100%. Stat blood gases were obtained, showing mixed respiratory and metabolic acidosis, pO2 of 362, a CO2 of 46, and pH of 7.27, this was done on FiO2 100%. Patient was restarted on BiPAP support subsequently, she is lethargic, but opening her eyes to voice, lung sounds were diminished, a dose of IV Lasix was given, stat chest x-ray showed diffuse pulmonary infiltrates, with dissecting pneumonia, and possibility of ARDS. FiO2 was down to 50% based on the above mentioned blood gases, he steroids have been started, patient has been on clindamycin for antibiotic coverage, Have been unable to send a sputum culture, blood culture showed no growth. Today's labs have been reviewed, showing white blood cell count of 13.7, hemoglobin of 9.1, sodium of 143, potassium is 4.1, chloride is 113, CO2 is 20, BUN is 5, creatinine is 0.67, proBNP came back elevated at 5960. Patient diuresed a 4500 mL of dilute urine, she was transferred to the intensive care unit for closer monitoring. On 12/21/2018 patient seen in follow-up in the intensive care unit, she is currently on 12 L per high flow nasal cannula, she is awake and alert, oriented 3, looking and feeling much better, breathing easier, she is afebrile. Did wear BiPAP support last night, with pressures 10 and 5, and FiO2 of 50%. His chest x-ray shows improving changes of congestive heart failure. Yesterdaypatient received 2 more doses of IV Lasix. She has significant diuresis, she made 5400 mL of urine. And she is in negative fluid balance of 3380 mL over the last 24 hours. Lung sounds reveal some bibasilar crackles, good air entry noted bilaterally, no significant wheezes. His labs have been reviewed, showing white blood cell count is 16.9, hemoglobin of 9.6, electrolytes were within normal limits, BUN was 21 creatinine was 0.72. Cultur es showed no growth, patient remains on antibiotic coverage in the form of clindamycin for suspected aspiration pneumonia. On 12/23/2018 patient seen in follow-up in the intensive care unit, since she is sitting up in the chair, in no acute distress, room air pulse ox is 94%, she is breathing easier, no fever or chills, echocardiogram was completed, showing mild concentric left ventricular hypertrophy, and EF between 55-60%, no significant valvular abnormality, with trace mitral regurg, trace tricuspid regurg, PA systolic is less than 35 mmHg,, no pericardial effusion, no pulmonic regurgitati on. No fever or chills, today's blood work showed white blood cell count of 16.5, hemoglobin of 10.5, electrolytes are within normal limits, BUN is 21 creatinine 0.59, urine drug screen came back positive for opiates and benzodiazepines, negative for amphetamines, negative for any other drugs. Pro- calcitonin is low, at 0.14, suggesting absence of infection, or infection that has been sufficiently treated, rheumatoid factor was within normal limits at less than 4, and a screen was negative, c-ANCA and p-ANCA titers were negative. Angiotensin-converting enzyme was elevated at 46, repeat proBNP came back at 601, down from 5960. Cultures so far showed no growth, patient is on clindamycin for antibiotic coverage, patient has had no fever or chills. No new chest x-rays today, yesterday's chest x-ray showed bilateral patchy infiltrate and small right pleural effusion. We discussed the possibility of bronchoscopy with BAL, and possible transbronchial biopsy tomorrow, and the patient is a greeable to proceed. Objective - Vital Signs Vital signs: Vital Signs Temp 97.6 F 12/23/18 16:45 Pulse 107 H 12/23/18 16:45 Resp 22 12/23/18 16:45 BP 128/89 12/23/18 16:45 Pulse Ox 94 L 12/23/18 16:50 Intake & Output 12/22/18 12/23/18 12/23/18 18:59 06:59 18:59 Intake Total 790 170 430 Output Total 2430 560 430 Balance -1640 -390 0 Weight 109.3 kg 109.3 kg Intake: IV 310 170 70 .9 100 20 Clindamycin 300 mg In 100 50 50 Dextrose 5% in Water 50 ml @ 50 mls/hr IVPB Q8HR [facility] Rx#:[id number] Sodium Chloride 0.9% 1, 210 20 000 ml @ 50 mls/hr IV . Q20H [facility] Rx#:[id number] Oral 480 360 Output: Urine 2430 560 430 Other: Voiding Method Indwelling Catheter Indwelling Catheter Bedside Commode # Voids 1 - Exam GENERAL EXAM: Alert, pleasant, 43-year-old white female, 2 L of oxygen with a pulse ox of 94% HEAD: Normocephalic/atraumatic. EYES: Normal reaction of pupils, equal size. Conjunctiva pink, sclera white. NOSE: Clear with pink turbinates. THROAT: No erythema or exudates. NECK: No masses, no JVD, no thyroid enlargement, no adenopathy. Midline neck tracheostomy stoma is covered with a dressing, small amount of yellowish drainage CHEST: No chest wall deformity. Symmetrical expansion. LUNGS: Equal air entry with basilar rales CVS: Regular rate and rhythm, normal S1 and S2, no gallops, no murmurs, no rubs ABDOMEN: Soft, nontender. No hepatosplenomegaly, normal bowel sounds, no guarding or rigidity. EXTREMITIES: No clubbing, no edema, no cyanosis, 2+ pulses and upper and lower extremities. Left anterior forearm with large scabbed area on anterior surface MUSCULOSKELETAL: Muscle strength and tone normal. SPINE: No scoliosis or deformity SKIN: No rashes CENTRAL NERVOUS SYSTEM: Alert and oriented -3. No focal deficits, tone is normal in all 4 extremities. PSYCHIATRIC: Alert and oriented -3. Appropriate affect. Intact judgment and insight. - Labs CBC & Chem 7: 12/23/18 05:00 12/23/18 11:35 Labs: Abnormal Lab Results - Last 24 Hours (Table) 12/22/18 12/22/18 12/23/18 Range/Units 15:20 20:31 05:00 WBC (3.8-10.6) k/uL Hgb (11.4-16.0) gm/dL Hct (34.0-46.0) % RDW (11.5-15.5) % Plt Count (150-450) k/uL BUN 21 H (7-17) mg/dL Glucose 151 H (74-99) mg/dL POC Glucose (mg/dL) 154 H (75-99) mg/dL Calcium 8.3 L (8.4-10.2) mg/dL Urine Opiates Screen Positive H (Negative) ng/mL U Benzodiazepines Scrn Positive H (Negative) ng/mL 12/23/18 12/23/18 12/23/18 Range/Units 05:00 06:52 11:52 WBC 16.5 H (3.8-10.6) k/uL Hgb 10.5 L (11.4-16.0) gm/dL Hct 33.8 L (34.0-46.0) % RDW 16.6 H (11.5-15.5) % Plt Count 522 H (150-450) k/uL BUN (7-17) mg/dL Glucose (74-99) mg/dL POC Glucose (mg/dL) 176 H 205 H (75-99) mg/dL Calcium (8.4-10.2) mg/dL Urine Opiates Screen (Negative) ng/mL U Benzodiazepines Scrn (Negative) ng/mL 12/23/18 Range/Units 17:26 WBC (3.8-10.6) k/uL Hgb (11.4-16.0) gm/dL Hct (34.0-46.0) % RDW (11.5-15.5) % Plt Count (150-450) k/uL BUN (7-17) mg/dL Glucose (74-99) mg/dL POC Glucose (mg/dL) 207 H (75-99) mg/dL Calcium (8.4-10.2) mg/dL Urine Opiates Screen (Negative) ng/mL U Benzodiazepines Scrn (Negative) ng/mL Microbiology - Last 24 Hours (Table) 12/16/18 19:59 Blood Culture - Final Blood No Growth after 144 hours Assessment and Plan Plan: Assessment: #1. Acute hypoxemic and hypercapnic respiratory failure related to bilateral pneumonia, a component of CHF/fluid overload with diastolic heart failure, consider blood, consider recurrent aspiration #2. Diffuse bilateral pneumonia, with secondary hypoxic respiratory failure, requiring intubation and mechanical ventilation, and subsequent placement of a tracheostomy and PEG tube, patient had been successfully weaned from the vent, and subsequently decannulated. PEG tube remains in place #3. Recent episode of acute respiratory failure following a suicide attempt with methamphetamines, marijuana, requiring intubation and has been on mechanical ventilation, and subsequent tracheostomy and PEG tube placement for failure to wean #4. Recent decannulation of tracheostomy tube #5. History of polysubstance abuse #6. Multiple suicide attempts #7. History of ARDS #8. Severe rhabdomyolysis last admission, resolved #9. Acute kidney injury during last admission, resolved #10. The of methicillin sensitive staph aureus pneumonia #11. Metabolic encephalopathy #12. History of depression #13. History of obesity Plan: Continue current medical treatment, continue with oral Lasix, continue bring treatments, same antibiotics, we discussed bronch with BAL, and possibility of transbronchial biopsies. Patient may ultimately need the lung wedge biopsy to rule out possibility of BOOP. Patient is agreeable to proceed, inactive tissue workup is negative thus far. ProCalcitonin level is low no fever or chills, FiO2 is being weaned. We'll continue with same dose IV steroids for now. Patient is stable to transfer out of the intensive care unit. Nothing by mouth after midnight. I performed a history & physical examination of the patient and discussed their management with my nurse practitioner, Dagmar Guevara. I reviewed the nurse practitioner's note and agree with the documented findings and plan of care. Lung sounds are positive for a few scattered rhonchi throughout the lung hernandez. The findings and the impression was discussed with the patient. I attest to the documentation by the nurse practitioner. Time with Patient: Less than 30
[2018-12-23 19:21] LABS: Glucose,Whole Blood 177 mg/dL (75-99)
[2018-12-23] MEDS: MELATONIN 1 MG TAB PO SCH (23:48)
[2018-12-24 07:04] LABS: Glucose,Whole Blood 93 mg/dL (75-99)
[2018-12-24] MEDS: INSULIN ASPART (NovoLOG) 100 UNIT/ML VIAL SQ SCH ×4 (08:06→21:33)
[2018-12-24] MEDS: SERTRALINE 100 MG TAB PO SCH (08:12)
[2018-12-24] MEDS: PANTOPRAZOLE 40 MG TABLET PO SCH (08:12)
[2018-12-24] MEDS: FUROSEMIDE 40 MG TAB PO SCH (08:12)
[2018-12-24] MEDS: ALPRAZolam 0.5 MG TAB PO PRN ×2 (08:12→17:13)
[2018-12-24] MEDS: busPIRone HCl 5 MG TAB PO SCH ×2 (08:12→21:32)
[2018-12-24] MEDS: methylPREDNISolone SOD SUCCI 40 MG/ML 1 ML VIAL IV SCH ×2 (08:13→17:16)
[2018-12-24] MEDS: HYDROcodone/APAP 5-325MG 1 EACH TAB PO PRN ×3 (08:16→21:32)
[2018-12-24] MEDS: IPRATROPIUM-ALBUTEROL 3 ML NEB INHALATION SCH ×4 (08:24→20:21)
[2018-12-24] MEDS: CLINDAMYCIN 300 MG in DEXTROSE 5% IN WATER 50 ML IVPB SCH ×2 (09:35)
--- NOTE | 2018-12-24 11:24 | XR ---
EXAMINATION TYPE: XR chest 2V DATE OF EXAM: 12/24/2018 COMPARISON: 12/22/2018 HISTORY: Chest pain TECHNIQUE: Single frontal view of the chest is obtained. FINDINGS: Overall improved aeration throughout both lung hernandez with persistent infiltrate right lower lobe. Co ntinued follow-up until resolution is advised. The cardiac silhouette size is within normal limits. The osseous structures are intact. IMPRESSION: 1. Overall improved aeration throughout both lung hernandez with persistent infiltrate right lower lobe . Continued follow-up until resolution is advised.
[2018-12-24] MEDS ORDERED: KETAMINE 10 MG/ML 20 ML VIAL ONE (11:55)
[2018-12-24] MEDS ORDERED: PROPOFOL 10 MG/ML 20 ML VIAL IV ONE (11:55)
[2018-12-24] MEDS ORDERED: LACTATED RINGERS 1,000 ML IV ONE (12:02)
[2018-12-24 12:46] LABS: Glucose,Whole Blood 157 mg/dL (75-99)
[2018-12-24] MEDS ORDERED: LIDOCAINE 2% INJ 20 MG/ML INTRATRACH ONE (12:47)
--- NOTE | 2018-12-24 13:03 | FL ---
EXAMINATION TYPE: FL bronchoscopy DATE OF EXAM: 12/24/2018 CLINICAL HISTORY: bronch rt lower lobe bx TECHNIQUE: Fluoroscopy. COMPARISON: None. FINDINGS: Fluoroscopic guidance was provided for bronchoscopy. IMPRESSION: As Above.
--- NOTE | 2018-12-24 13:32 | P.PN ---
Subjective very pleasant 43-year-old female who was admitted to the ICU for shortness of breath.workup in progress for possible CHF. She is on Lasixshe was also found to have pneumonia possible thoughts are given to aspiration pneumonia. She is on clindamycin for that. She is also on steroids. She still on 8 L of oxygen. She says that she's feeling little better. She still coughing No chest pain racing heart, no abdominal pain, nausea and vomiting, no diarrhea or constipation 12/23/2018 Patient says that her breathing is little better than yesterday. She is coughing still. No chest pain or racing heart No cough no shortness of breath Oxygen requirements have gone down. She is on 2 L now 12/24/2018 Patient doing better today. No cough says that her shortness of breath is better No chest pain or racing heart Objective - Vital Signs Vital signs: Vital Signs Temp 98.3 F 12/24/18 11:59 Pulse 108 H 12/24/18 11:59 Resp 17 12/24/18 11:59 BP 119/84 12/24/18 11:59 Pulse Ox 94 L 12/24/18 11:59 Intake & Output 12/23/18 12/24/18 12/24/18 18:59 06:59 18:59 Intake Total 430 720 350 Output Total 430 Balance 0 720 350 Weight 109.3 kg Intake: IV 70 350 .9 20 Clindamycin 300 mg In 50 Dextrose 5% in Water 50 ml @ 50 mls/hr IVPB Q8HR [facility] Rx#:[id number] Oral 360 720 Output: Urine 430 Other: Voiding Method Bedside Commode Toilet # Voids 1 1 - Exam On exam, alert and oriented x3. HEENT: Conjunctivae normal. eyes normal. NECK: No JVD. No thyroid enlargement. No LNs CARDIOVASCULAR: S1, S2 muffled. No murmur RESPIRATION: Breath sounds diminished in the bases. No rhonchi or crackles. No bronchial breathing. ABDOMEN: Soft, nontender . No guarding. no masses palpable. No ascites, No hepatosplenomegaly.Bowel sounds heard. LEGS: No edema. no swelling NERVOUS SYSTEM: Cranial N 2-12 grossly normal. Moves all 4 limbs. No focal deficits. No sensory deficit. No signs of cerebellar dysfucntion. Skin: no ulcer no rash - Labs CBC & Chem 7: 07/02/19 05:00 12/23/18 11:35 Labs: Abnormal Lab Results - Last 24 Hours (Table) 12/23/18 12/23/18 12/24/18 Range/Units 17:26 19:17 11:22 POC Glucose (mg/dL) 207 H 177 H 157 H (75-99) mg/dL Assessment and Plan Assessment: - acute hypoxic and hypercapnic respiratory failure. Due to combination of pneumonia and CHF/fluid overload - possible aspiration pneumonia - Status post PEG tube placement following suicide attempt where the patient required intubation with subsequent tracheostomy. Patient had recent decannu lation of the tracheostomy tube - History of polysubstance abuse - multiple suicide attempts - History of ours - History of depression Plan 12/22/2018 - Continue antibiotics and steroids as per pulmonology recommendations - Possible biopsy of the lung to rule out the cause - Continue current management - DVT and GI prophylaxis - We'll followupon the patient 12/23/2018 We'll continue antibiotics Pulmonology following the patient Continue current management Follow the patient 12/24/2018 Continue antibiotics as per pulmonary recommendations She was transferred out of the ICU patient is getting a bronchoscopy today we'll continue rest of the medical care
--- NOTE | 2018-12-24 13:40 | XR ---
EXAMINATION TYPE: XR chest 1V portable DATE OF EXAM: 12/24/2018 COMPARISON: 12/24/2018 HISTORY: Status post bronchoscopy TECHNIQUE: Single frontal view of the chest is obtained. FINDINGS: There is evidence for right-sided pneumothorax estimated at 10%. Patchy infiltrate right lower lobe u ncertain etiology. The cardiac silhouette size is within normal limits. The osseous structures are intact. IMPRESSION: 1. Right-sided 10% pneumothorax. A Red level critical message alert has been initiated for Robbie Og via the [employer] System on 12/24/2018 1:37 PM. This message alert has been sent to Robbie Og via the preferences provided by the clinician for the receipt of Radiology Critical Findings. Message ID [id number].
--- NOTE | 2018-12-24 13:46 | P.PN ---
Subjective Progress Note Date: 12/24/18 Principal diagnosis: Hypoxemia secondary to fluid volume overload/infiltrates Patient is seen today 12/24/2017 in follow-up on the regular medical floor. She is awake and alert in no acute distress. Maintaining good O2 saturations in the 90s on room air now. She has been afebrile. Hemodynamically stable. Blood culture reveals no growth. Blood glucose 157. Urine hCG negative. She is currently on bronchodilators, oral diuretics, IV Solu-Medrol. The plan is for bronchoscopy with BAL and transbronchial biopsies, bronchiolitis obliterans organizing pneumonia within the differential versus acute episodes of flash pulmonary edema. Objective - Vital Signs Vital signs: Vital Signs Temp 98.3 F 12/24/18 11:59 Pulse 108 H 12/24/18 11:59 Resp 17 12/24/18 11:59 BP 119/84 12/24/18 11:59 Pulse Ox 94 L 12/24/18 11:59 Intake & Output 12/23/18 12/24/18 12/24/18 18:59 06:59 18:59 Intake Total 430 720 350 Output Total 430 Balance 0 720 350 Weight 109.3 kg Intake: IV 70 350 .9 20 Clindamycin 300 mg In 50 Dextrose 5% in Water 50 ml @ 50 mls/hr IVPB Q8HR [facility] Rx#:[id number] Oral 360 720 Output: Urine 430 Other: Voiding Method Bedside Commode Toilet # Voids 1 1 - Exam GENERAL EXAM: Alert, pleasant, 43-year-old female, currently on room air. HEAD: Normocephalic/atraumatic. EYES: Normal reaction of pupils, equal size. Conjunctiva pink, sclera white. NOSE: Clear with pink turbinates. THROAT: No erythema or exudates. NECK: No masses, no JVD, no thyroid enlargement, no adenopathy. Midline neck tracheostomy stoma is covered with a dressing, small amount of yellowish drainage CHEST: No chest wall deformity. Symmetrical expansion. LUNGS: Equal air entry with a few scattered rhonchi, crackles in the bases. CVS: Regular rate and rhythm, normal S1 and S2, no gallops, no murmurs, no rubs ABDOMEN: Soft, nontender. No hepatosplenomegaly, normal bowel sounds, no guarding or rigidity. EXTREMITIES: No clubbing, no edema, no cyanosis, 2+ pulses and upper and lower extremities. Left anterior forearm with large scabbed area on anterior surface MUSCULOSKELETAL: Muscle strength and tone normal. SPINE: No scoliosis or deformity SKIN: No rashes CENTRAL NERVOUS SYSTEM: No focal deficits, tone is normal in all 4 extremities. PSYCHIATRIC: Alert and oriented -3. Appropriate affect. Intact judgment and insight. - Labs CBC & Chem 7: 12/23/18 05:00 12/23/18 11:35 Labs: Abnormal Lab Results - Last 24 Hours (Table) 12/23/18 12/23/18 12/24/18 Range/Units 17:26 19:17 11:22 POC Glucose (mg/dL) 207 H 177 H 157 H (75-99) mg/dL Assessment and Plan Assessment: Assessment: #1. Acute hypoxemic and hypercapnic respiratory failure related to bilateral pneumonia, pulmonary edema. Recovered and on room air. #2. 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 #3. Recent episode of acute respiratory failure following a suicide attempt wit h methamphetamines, marijuana, requiring intubation and has been on mechanical ventilation, and subsequent tracheostomy and PEG tube placement for failure to wean #4. Recent decannulation of tracheostomy tube #5. History of polysubstance abuse #6. Multiple suicide attempts #7. History of ARDS #8. Severe rhabdomyolysis last admission, resolved #9. Acute kidney injury during last admission, resolved #10. History of of methicillin sensitive staph aureus pneumonia #11. Metabolic encephalopathy #12. History of depression #13. History of obesity Plan: The patient was seen and evaluated by Dr. Og. She has recovered and is on room air. We'll continue with her current medications for now. The plan is for bronchoscopy with BAL and transbronchial biopsies today. We'll continue to follow make further recommendations based on her clinical status. I, the cosigning physician, performed a history & physical examination of the patient. Lungs sounds with crackles in the bilateral posterior bases. Maintaining good O2 saturations in the 90s on room air. I discussed the assessment and plan of care with my nurse practitioner, Effie Ayala. I attest to the above note as dictated by her.
--- NOTE | 2018-12-24 16:02 | P.PCN ---
Date of Procedure: 12/24/18 Preoperative Diagnosis: Diffuse bilateral pulmonary infiltrates, consider BOOP, consider interstitial edema Postoperative Diagnosis: Diffuse bilateral pulmonary infiltrates, consider BOOP, consider interstitial edema Procedure(s) Performed: Flexible bronchoscopy, bronchoalveolar lavage, transbronchial biopsy Anesthesia: MAC Surgeon: Robbie Og Estimated Blood Loss (ml): 0 Pathology: other Condition: stable Operative Findings: This is a flexible bronchoscopy that was done in the bronchoscopy suite. The anesthetic agents was administered by anesthesia the bedside. The flexible bronchoscope was inserted to the right nostril. As the bronchoscope was being advanced, the upper airway structures were all inspected including the posterior oropharynx and larynx. Upper airway structures were all within normal limits. Pharynx, oropharynx, larynx, epiglottis, vallecula, arytenoids and the vocal cords were all within normal limits. A total of 2 mL of 1% lidocaine was applied to the vocal cords and following that the flexible bronchoscope was inserted into the upper trachea. Anteriorly, the tracheostomy stoma opening was seen at the level of the anterior tracheal wall and was healing nicely. The trachea was patent. There was a moderate degree of tracheal bronchomalacia with dynamic obstruction due to movement of the membranous trachea. There was dynamic obstruction with exhalation and cough and. A quick airway inspection was done. The visualized airways included the trachea, bilateral mainstem bronchi, right upper lobe bronchus, right middle lobe bronchus and right lower lobe bronchus in addition to the left upper lobe bronchus and left lower lobe bronchus. All of the airways were patent and within normal limits. The bronchoscope was wedged in the lingula and the bronchioloalveolar lavage was done. A total of 80 mL of fluid was infused and 40 mL was suctioned back. Following that, I performed transbuccal branches of the anterior and the basilar segment of the right lower lobe. A total of 5 passes obtained under fluoroscopic guidance. No endobronchial bleeding. The bronchoscope was removed and the patient was transferred recovery in stable condition. Follow-up chest x-ray showed a 10% pneumothorax on the right. The patient was clinically asymptomatic. Repeat chest x-ray will be done tomorrow. We'll continue to follow. The samples were sent for microbial analysis and histologic analysis.
[2018-12-24 16:19] LABS: Glucose,Whole Blood 121 mg/dL (75-99)
--- NOTE | 2018-12-24 17:25 | XR ---
EXAMINATION TYPE: XR chest 2V DATE OF EXAM: 12/24/2018 COMPARISON: Today HISTORY: Follow-up pneumothorax TECHNIQUE: Frontal and lateral views of the chest are obtained. FINDINGS: There is right apical pneumothorax. Pleural space measures 2.3 cm and is increased from 1 cm on the exam earlier today at 1:00 PM. There is minimal atelectasis right lung base. There is coars ening of the interstitial markings. There is no heart failure. Heart size is normal. There are chest leads. Trachea is midline. Mediastinum is normal. IMPRESSION: There is increase in the right-sided pneumothorax compared to last exam.
[2018-12-24] MEDS: CLINDAMYCIN 150 MG CAP PO SCH (18:54)
[2018-12-24 19:50] LABS: Glucose,Whole Blood 192 mg/dL (75-99)
[2018-12-24] MEDS: MELATONIN 1 MG TAB PO SCH (21:32)
[2018-12-25] MEDS: methylPREDNISolone SOD SUCCI 40 MG/ML 1 ML VIAL IV SCH ×4 (01:15→23:40)
[2018-12-25] MEDS: HYDROcodone/APAP 5-325MG 1 EACH TAB PO PRN ×5 (01:15→22:03)
[2018-12-25] MEDS: CLINDAMYCIN 150 MG CAP PO SCH ×4 (01:16→23:40)
[2018-12-25] MEDS: ALPRAZolam 0.5 MG TAB PO PRN ×3 (01:16→18:02)
[2018-12-25 07:10] LABS: Glucose,Whole Blood 146 mg/dL (75-99)
[2018-12-25 07:37] LABS: Anisocytosis Slight; HCT 33.5 % (34.0-46.0); HGB 10.5 gm/dL (11.4-16.0); Hypochromasia Marked; MCH 26.4 pg (25.0-35.0); MCHC 31.5 g/dL (31.0-37.0); MCV 83.9 fL (80.0-100.0); Mean Platelet Volume 7.5; Platelet Count 565 k/uL (150-450); Poikilocytosis Slight; RBC 3.99 m/uL (3.80-5.40); RDW 16.6 % (11.5-15.5); WBC 23.3 k/uL (3.8-10.6)
[2018-12-25] MEDS: IPRATROPIUM-ALBUTEROL 3 ML NEB INHALATION SCH ×4 (07:51→19:44)
[2018-12-25 08:05] LABS: African American GFR (CKD) >90 (>60 ml/min/1.73 sqM); Anion Gap 12 mmol/L; Blood Urea Nitrogen 19 mg/dL (7-17); Calcium 8.9 mg/dL (8.4-10.2); Carbon Dioxide 23 mmol/L (22-30); Chloride 105 mmol/L (98-107); Glucose 152 mg/dL (74-99); Potassium 4.1 mmol/L (3.5-5.1); Sodium 140 mmol/L (137-145)
[2018-12-25] MEDS: SERTRALINE 100 MG TAB PO SCH (08:56)
[2018-12-25] MEDS: busPIRone HCl 5 MG TAB PO SCH ×2 (08:56→22:03)
[2018-12-25] MEDS: FUROSEMIDE 40 MG TAB PO SCH (08:56)
[2018-12-25] MEDS: PANTOPRAZOLE 40 MG TABLET PO SCH (08:56)
[2018-12-25] MEDS: INSULIN ASPART (NovoLOG) 100 UNIT/ML VIAL SQ SCH ×4 (09:03→22:03)
[2018-12-25] MEDS ORDERED: LIDOCAINE 2% INJ 20 MG/ML (20 ML MDV) ONE (09:34)
[2018-12-25] MEDS ORDERED: LORazepam 2 MG/ML INJ ONE (09:41)
[2018-12-25] MEDS ORDERED: LORazepam 2 MG/ML INJ IV STA ×2 (10:06→11:49)
[2018-12-25 11:16] LABS: Glucose,Whole Blood 114 mg/dL (75-99)
--- NOTE | 2018-12-25 11:32 | XR ---
EXAMINATION TYPE: XR chest 2V DATE OF EXAM: 12/25/2018 COMPARISON: 12/24/2018 TECHNIQUE: PA and lateral views submitted. HISTORY: Follow-up pneumothorax FINDINGS: Chest catheter seen with reduction in pneumothorax persistent 15% pneumothorax. Slightly reduced from prior exam. Subsegmental changes lung base on the right. Heart size stable. IMPRESSION: 1. There remains approximately 15% right-sided pneumothorax
--- NOTE | 2018-12-25 12:10 | XR ---
EXAMINATION TYPE: XR chest 1V portable DATE OF EXAM: 12/25/2018 COMPARISON: 12/25/2018 HISTORY: Chest tube placement TECHNIQUE: Single frontal view of the chest is obtained. FINDINGS: There is interval reduction in size of the right pneumothorax with no sizable pneumothorax now seen. Persistent subsegmental consolidation noted with low lung volumes bilaterally. Heart size is stable. Left lung clear. Arthropathy of the right shoulder. IMPRESSION: 1. Interval reduction in size of right-sided pneumothorax..
--- NOTE | 2018-12-25 15:05 | P.PN ---
Subjective very pleasant 43-year-old female who was admitted to the ICU for shortness of breath.workup in progress for possible CHF. She is on Lasixshe was also found to have pneumonia possible thoughts are given to aspiration pneumonia. She is on clindamycin for that. She is also on steroids. She still on 8 L of oxygen. She says that she's feeling little better. She still coughing No chest pain racing heart, no abdominal pain, nausea and vomiting, no diarrhea or constipation 12/23/2018 Patient says that her breathing is little better than yesterday. She is coughing still. No chest pain or racing heart No cough no shortness of breath Oxygen requirements have gone down. She is on 2 L now 12/24/2018 Patient doing better today. No cough says that her shortness of breath is better No chest pain or racing heart 12/25/2018 Patient does not complain of any cough or shortness of breath. She had bronchoscopy done yesterday after which she had pneumothorax. She had a repeat chest x-ray done this morning which showed increase in the size of the pneumothorax. she has chest tube placed this morning by pulmonology patient remains a symptomatic Objective - Vital Signs Vital signs: Vital Signs Temp 98.3 F 12/25/18 11:34 Pulse 93 12/25/18 11:34 Resp 17 12/25/18 11:34 BP 110/76 12/25/18 11:34 Pulse Ox 93 L 12/25/18 11:34 Intake & Output 12/24/18 12/25/18 12/25/18 18:59 06:59 18:59 Intake Total 1070 1070 Output Total 140 Balance 930 1070 Weight 109.826 kg Intake: IV 350 Oral 720 1070 Output: Urine 140 Other: Voiding Method Toilet Toilet Toilet # Voids 4 2 - Exam On exam, alert and oriented x3. HEENT: Conjunctivae normal. eyes normal. NECK: No JVD. No thyroid enlargement. No LNs, chest tube CARDIOVASCULAR: S1, S2 muffled. No murmur RESPIRATION: Breath sounds diminished in the bases. No rhonchi or crackles. No bronchial breathing. ABDOMEN: Soft, nontender . No guarding. no masses palpable. No ascites, No hepatosplenomegaly.Bowel sounds heard. LEGS: No edema. no swelling NERVOUS SYSTEM: Cranial N 2-12 grossly normal. Moves all 4 limbs. No focal deficits. No sensory deficit. No signs of cerebellar dysfucntion. Skin: no ulcer no rash - Labs CBC & Chem 7: 12/25/18 06:44 12/25/18 06:44 Labs: Abnormal Lab Results - Last 24 Hours (Table) 12/24/18 12/24/18 12/25/18 Range/Units 16:18 19:49 06:44 WBC 23.3 H (3.8-10.6) k/uL Hgb 10.5 L (11.4-16.0) gm/dL Hct 33.5 L (34.0-46.0) % RDW 16.6 H (11.5-15.5) % Plt Count 565 H (150-450) k/uL BUN (7-17) mg/dL Glucose (74-99) mg/dL POC Glucose (mg/dL) 121 H 192 H (75-99) mg/dL 12/25/18 12/25/18 12/25/18 Range/Units 06:44 07:09 11:15 WBC (3.8-10.6) k/uL Hgb (11.4-16.0) gm/dL Hct (34.0-46.0) % RDW (11.5-15.5) % Plt Count (150-450) k/uL BUN 19 H (7-17) mg/dL Glucose 152 H (74-99) mg/dL POC Glucose (mg/dL) 146 H 114 H (75-99) mg/dL Microbiology - Last 24 Hours (Table) 12/24/18 12:48 Gram Stain - Preliminary Bronchial Washings - Random Bronchial Washings Culture - Preliminary 12/24/18 12:48 Fungal Culture - Preliminary Bronchial Washings - Random 12/24/18 12:48 Acid Fast Bacilli Culture - Preliminary Bronchial Washings - Random Assessment and Plan Assessment: - Right-sided pneumothorax - acute hypoxic and hypercapnic respiratory failure. Due to combination of pneumonia and CHF/fluid overload - possible aspiration pneumonia - Status post PEG tube placement following suicide attempt where the patient required intubation with subsequent tracheostomy. Patient had recent decannulation of the tracheostomy tube - History of polysubstance abuse - multiple suicide attempts - History of ours - History of depression Plan 12/22/2018 - Continue antibiotics and steroids as per pulmonology recommendations - Possible biopsy of the lung to rule out the cause - Continue current management - DVT and GI prophylaxis - We'll followupon the patient 12/23/2018 We'll continue antibiotics Pulmonology following the patient Continue current management Follow the patient 12/24/2018 Continue antibiotics as per pulmonary recommendations She was transferred out of the ICU patient is getting a bronchoscopy today we'll continue rest of the medical care 12/25/2018 - Chest tube placed by pulmonology this morning for pneumothorax which is increasing in size - Continue antibiotics - Patient was monitored to see how she is doing - Continue rest of the medical care - We'll follow the patient along
[2018-12-25 16:33] LABS: Glucose,Whole Blood 145 mg/dL (75-99)
[2018-12-25 19:59] LABS: Glucose,Whole Blood 97 mg/dL (75-99)
--- NOTE | 2018-12-25 21:01 | PN ---
PROGRESS NOTE DATE OF SERVICE: 12/25/2018. The patient is seen today, December 25, 2018, and followed up on the regular medical floor. She is currently awake and alert in no acute distress. She did undergo bronchoscopy with transbronchial biopsies yesterday. There was a noted 15% right-sided pneumothorax. Based on these findings, she did undergo a Thoravent placement to the right chest by Dr. Og. Follow up x-ray showed interval reduction in the size of the pneumothorax. She remained stable with no worsening shortness of breath, cough or congestion. She is maintaining good O2 saturations in the 90s on room air. She is afebrile. Hemodynamically stable. Bronchial wash cultures are pending. Blood cultures no growth. White count 23.3, hemoglobin 12.5, creatinine 0.67. She is currently on DuoNeb inhalations, some IV Solu-Medrol, diuretics, antibiotics in the form of clindamycin. PHYSICAL EXAM: She is alert and oriented, in no acute distress. Vital signs revealed blood pressure 110/76, heart rate 93, respirations 18, temperature is 98.3, she is 93% saturation on room air. HEAD: Normocephalic. Sclerae anicteric. Anicteric sclerae. NECK: Supple. Trachea midline. There is a dressing over her stoma. Right Thoravent secured in place. LUNGS: With few scattered rhonchi. HEART is regular S1, S2. ABDOMEN: Obese, soft, nontender. Bowel sounds are present. There is trace distal edema. No clubbing or cyanosis. Peripheral pulses are intact. INVESTIGATIONS: Lab results revealed WBC 23.3, hemoglobin 10.5, platelet count 565,000. Sodium 140, potassium 4.1, chloride 105, bicarb 23, creatinine 0.67. Chest x-ray reveals interval reduction and right-sided pneumothorax. Medications are reviewed. IMPRESSION: 1. Acute hypoxemic and hypercapnic respiratory failure secondary to bilateral pneumonia/pulmonary edema, improved and on room air. 2. 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 Status post bronchoscopy with transbronchial biopsy and BAL, results pending. 3. Iatrogenic right-sided pneumothorax status post Thoravent placement with interval reduction in the pneumothorax. 4. Recent episode of acute respiratory failure following a suicide attempt with methamphetamines and marijuana. Requiring intubation, mechanical ventilatory support with subsequent tracheostomy and PEG tube placement for failure to wean. 5. Recent decannulation of tracheostomy tube. 6. History of polysubstance abuse. 7. Multiple suicide attempts. 8. History of acute respiratory distress syndrome. 9. Severe rhabdomyolysis last admission, resolved. 10.Acute kidney injury during last admission, resolved. 11.History of methicillin sensitive Staph aureus pneumonia. 12.Metabolic encephalopathy. 13.History of depression. 14.History of obesity. PLAN: The patient was seen and evaluated by Dr. Og. He did place a Thoravent to his right chest. Followup chest x-ray shows interval improvement in the pneumothorax. Bronchoscopy cultures and biopsies are pending. She is stable and on room air. She is on antibiotics in the form of clindamycin. She is on oral diuretics. We will continue to follow and make further recommendations based on her clinical status. I, the cosigning physician performed a history and physical examination on the patient. Lungs sounds with crackles in the posterior bases, worse on the right. Maintain O2 saturations in the 90s on room air. I discussed the assessment and plan of care with the nurse practitioner, Effie Ayala. I attest to the above note as dictated by her. MMODL / IJN: [id number] /
[2018-12-25] MEDS: MELATONIN 1 MG TAB PO SCH (22:03)
[2018-12-26] MEDS: HYDROcodone/APAP 5-325MG 1 EACH TAB PO PRN ×6 (01:50→23:51)
[2018-12-26] MEDS: ALPRAZolam 0.5 MG TAB PO PRN ×3 (01:50→17:02)
[2018-12-26 06:57] LABS: Glucose,Whole Blood 98 mg/dL (75-99)
[2018-12-26 07:51] LABS: Anisocytosis Slight; HCT 33.9 % (34.0-46.0); HGB 10.6 gm/dL (11.4-16.0); Hypochromasia Moderate; MCH 26.2 pg (25.0-35.0); MCHC 31.2 g/dL (31.0-37.0); MCV 83.9 fL (80.0-100.0); Mean Platelet Volume 7.5; Platelet Count 483 k/uL (150-450); Poikilocytosis Slight; RBC 4.04 m/uL (3.80-5.40); WBC 17.2 k/uL (3.8-10.6)
[2018-12-26] MEDS: INSULIN ASPART (NovoLOG) 100 UNIT/ML VIAL SQ SCH ×4 (08:05→21:36)
[2018-12-26] MEDS: PANTOPRAZOLE 40 MG TABLET PO SCH (08:10)
[2018-12-26] MEDS: busPIRone HCl 5 MG TAB PO SCH ×2 (08:10→21:35)
[2018-12-26] MEDS: CLINDAMYCIN 150 MG CAP PO SCH ×3 (08:10→23:51)
[2018-12-26] MEDS: FUROSEMIDE 40 MG TAB PO SCH (08:11)
[2018-12-26] MEDS: methylPREDNISolone SOD SUCCI 40 MG/ML 1 ML VIAL IV SCH ×3 (08:11→23:52)
[2018-12-26] MEDS: SERTRALINE 100 MG TAB PO SCH (08:11)
[2018-12-26] MEDS: IPRATROPIUM-ALBUTEROL 3 ML NEB INHALATION SCH ×4 (09:07→20:48)
[2018-12-26 11:32] LABS: Glucose,Whole Blood 133 mg/dL (75-99)
--- NOTE | 2018-12-26 13:48 | P.PN ---
Subjective Progress Note Date: 12/26/18 Principal diagnosis: Hypoxemia secondary to fluid volume overload/infiltrates The patient is seen today 12/26/2018 in follow-up on the regular medical floor. She is awake and alert in no acute distress. No worsening shortness of breath, cough or congestion. She is maintaining good O2 saturations in the upper 90s on room air. She's been afebrile. Hemodynamically stable. Bronchial wash cultures reveal no growth. Pathology pending. Blood cultures reveal no growth. White count 17.2. Hemoglobin 10.6. She remains on clindamycin. Objective - Vital Signs Vital signs: Vital Signs Temp 98.9 F 12/26/18 11:58 Pulse 72 12/26/18 12:30 Resp 17 12/26/18 11:58 BP 114/63 12/26/18 11:58 Pulse Ox 97 12/26/18 11:58 Intake & Output 12/25/18 12/26/18 12/26/18 18:59 06:59 18:59 Intake Total 742 440 9678 Output Total 140 Balance 966 190 2315 Intake: Oral 621 338 6169 Output: Urine 140 Other: Voiding Method Toilet Bedside Commode Bedside Commode # Voids 3 3 - Exam GENERAL EXAM: Alert, pleasant, 43-year-old female, currently on room air. HEAD: Normocephalic/atraumatic. EYES: Normal reaction of pupils, equal size. Conjunctiva pink, sclera white. NOSE: Clear with pink turbinates. THROAT: No erythema or exudates. NECK: No masses, no JVD, no thyroid enlargement, no adenopathy. Midline neck tracheostomy stoma is covered with a dressing. CHEST: No chest wall deformity. Symmetrical expansion. LUNGS: Equal air entry with a few scattered rhonchi, crackles in the bases. CVS: Regular rate and rhythm, normal S1 and S2, no gallops, no murmurs, no rubs ABDOMEN: Soft, nontender. No hepatosplenomegaly, normal bowel sounds, no guarding or rigidity. PEG tube secured in place. EXTREMITIES: No clubbing, no edema, no cyanosis, 2+ pulses and upper and lower extremities. Left anterior forearm with large scabbed area on anterior surface MUSCULOSKELETAL: Muscle strength and tone normal. SPINE: No scoliosis or deformity SKIN: No rashes CENTRAL NERVOUS SYSTEM: No focal deficits, tone is normal in all 4 extremities. PSYCHIATRIC: Alert and oriented -3. Appropriate affect. Intact judgment and insight. - Labs CBC & Chem 7: 12/26/18 06:48 12/25/18 06:44 Labs: Abnormal Lab Results - Last 24 Hours (Table) 12/25/18 12/26/18 12/26/18 Range/Units 16:32 06:48 11:30 WBC 17.2 H (3.8-10.6) k/uL Hgb 10.6 L (11.4-16.0) gm/dL Hct 33.9 L (34.0-46.0) % RDW 17.0 H (11.5-15.5) % Plt Count 483 H (150-450) k/uL POC Glucose (mg/dL) 145 H 133 H (75-99) mg/dL Microbiology - Last 24 Hours (Table) 12/24/18 12:48 Gram Stain - Final Bronchial Washings - Random Bronchial Washings Culture - Final 12/24/18 12:48 Acid Fast Bacilli Smear - Final Bronchial Washings - Random Acid Fast Bacilli Culture - Final Assessment and Plan Assessment: Assessment: #1. Acute hypoxemic and hypercapnic respiratory failure related to bilateral pneumonia, pulmonary edema. Recovered and on room air. #2. 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 Bronchial wash cultures reveal no growth. Pathology is pending. #3. Recent episode of acute respiratory failure following a suicide attempt with methamphetamines, marijuana, requiring intubation and has been on mechanical ventilation, and subsequent tracheostomy and PEG tube placement for failure to wean. Decannulated prior to admission and PEG tube removed today. #4. Small iatrogenic pneumothorax following bronchoscopy with BAL. Thora vent placed and subsequently removed today. Right lung fully expanded. #5. History of polysubstance abuse #6. Multiple suicide attempts #7. History of ARDS #8. Severe rhabdomyolysis last admission, resolved #9. Acute kidney injury during last admission, resolved #10. History of of methicillin sensitive staph aureus pneumonia #11. Metabolic encephalopathy #12. History of depression #13. History of obesity Plan: The patient was seen and evaluated by Dr. Og. She has recovered and is on room air. Bronchial wash cultures are revealing no growth. Pathology is pending. PEG tube removed today. Dressing applied. Thora-Vent removed today. Right lung remains expanded. She is cleared for discharge from the pulmonary standpoint. I, the cosigning physician, performed a history & physical examination of the patient. Lungs sounds with crackles in the bilateral posterior bases. Maintaining good O2 saturations in the 90s on room air. I discussed the assessment and plan of care with my nurse practitioner, Effie Ayala. I attest to the above note as dictated by her.
--- NOTE | 2018-12-26 14:43 | XR ---
EXAMINATION TYPE: XR chest 1V DATE OF EXAM: 12/26/2018 COMPARISON: 12/25/2018 HISTORY: Pneumothorax TECHNIQUE: Single frontal view of the chest is obtained. FINDINGS: Right upper lobe pleural catheter has been removed. I do not see evidence for sizable pneumothorax at this time. Lungs are clear. The cardiac silhouette size is within normal limits. The osseous structures are intact. IMPRESSION: 1. Right upper lobe pleural catheter has been removed. I do not see evidence for sizable pneumothora x at this time.
[2018-12-26 16:41] LABS: Glucose,Whole Blood 143 mg/dL (75-99)
--- NOTE | 2018-12-26 16:47 | P.PN ---
Subjective very pleasant 43-year-old female who was admitted to the ICU for shortness of breath.workup in progress for possible CHF. She is on Lasixshe was also found to have pneumonia possible thoughts are given to aspiration pneumonia. She is on clindamycin for that. She is also on steroids. She still on 8 L of oxygen. She says that she's feeling little better. She still coughing No chest pain racing heart, no abdominal pain, nausea and vomiting, no diarrhea or constipation 12/23/2018 Patient says that her breathing is little better than yesterday. She is coughing still. No chest pain or racing heart No cough no shortness of breath Oxygen requirements have gone down. She is on 2 L now 12/24/2018 Patient doing better today. No cough says that her shortness of breath is better No chest pain or racing heart 12/25/2018 Patient does not complain of any cough or shortness of breath. She had bronchoscopy done yesterday after which she had pneumothorax. She had a repeat chest x-ray done this morning which showed increase in the size of the pneumothorax. she has chest tube placed this morning by pulmonology patient remains a symptomatic 12/26/2018 Patient has a chest tube on the right side still. Patient complains of some discomfort at the site of the chest tube but otherwise no chest pain, no shortness of breath She does not complain of any nausea vomiting No diarrhea constipation. Objective - Vital Signs Vital signs: Vital Signs Temp 98.9 F 12/26/18 11:58 Pulse 73 12/26/18 15:01 Resp 17 12/26/18 15:01 BP 114/63 12/26/18 11:58 Pulse Ox 97 12/26/18 11:58 Intake & Output 12/25/18 12/26/18 12/26/18 18:59 06:59 18:59 Intake Total 368 395 2101 Output Total 140 140 Balance 403 522 9453 Intake: Oral 436 305 8947 Output: Urine 140 140 Other: Voiding Method Toilet Bedside Commode Bedside Commode # Voids 3 3 - Exam On exam, alert and oriented x3. HEENT: Conjunctivae normal. eyes normal. NECK: No JVD. No thyroid enlargement. No LNs, chest tube CARDIOVASCULAR: S1, S2 muffled. No murmur RESPIRATION: Breath sounds diminished in the bases. No rhonchi or crackles. No bronchial breathing. ABDOMEN: Soft, nontender . No guarding. no masses palpable. No ascites, No hepatosplenomegaly.Bowel sounds heard. LEGS: No edema. no swelling NERVOUS SYSTEM: Cranial N 2-12 grossly normal. Moves all 4 limbs. No focal deficits. No sensory deficit. No signs of cerebellar dysfucntion. Skin: no ulcer no rash - Labs CBC & Chem 7: 12/26/18 06:48 12/25/18 06:44 Labs: Abnormal Lab Results - Last 24 Hours (Table) 12/26/18 12/26/18 12/26/18 Range/Units 06:48 11:30 16:39 WBC 17.2 H (3.8-10.6) k/uL Hgb 10.6 L (11.4-16.0) gm/dL Hct 33.9 L (34.0-46.0) % RDW 17.0 H (11.5-15.5) % Plt Count 483 H (150-450) k/uL POC Glucose (mg/dL) 133 H 143 H (75-99) mg/dL Microbiology - Last 24 Hours (Table) 12/24/18 12:48 Gram Stain - Final Bronchial Washings - Random Bronchial Washings Culture - Final 12/24/18 12:48 Acid Fast Bacilli Smear - Final Bronchial Washings - Random Acid Fast Bacilli Culture - Final Assessment and Plan Assessment: - Right-sided pneumothorax - acute hypoxic and hypercapnic respiratory failure. Due to combination of pneumonia and CHF/fluid overload - possible aspiration pneumonia - Status post PEG tube placement following suicide attempt where the patient required intubation with subsequent tracheostomy. Patient had recent decannulation of the tracheostomy tube - History of polysubstance abuse - multiple suicide attempts - History of ours - History of depression Plan 12/22/2018 - Continue antibiotics and steroids as per pulmonology recommendations - Possible biopsy of the lung to rule out the cause - Continue current management - DVT and GI prophylaxis - We'll followupon the patient 12/23/2018 We'll continue antibiotics Pulmonology following the patient Continue current management Follow the patient 12/24/2018 Continue antibiotics as per pulmonary recommendations She was transferred out of the ICU patient is getting a bronchoscopy today we'll continue rest of the medical care 12/25/2018 - Chest tube placed by pulmonology this morning for pneumothorax which is increasing in size - Continue antibiotics - Patient was monitored to see how she is doing - Continue rest of the medical care - We'll follow the patient along 12/26/2018 - Possible removal of the thoravent today - Possible removal of the PEG tube today as well - We will continue rest of the care - We'll follow the patient - Anticipate discharge in the next 24 hours depending upon how she progresses
[2018-12-26 20:02] LABS: Glucose,Whole Blood 177 mg/dL (75-99)
[2018-12-26] MEDS: MELATONIN 1 MG TAB PO SCH (21:36)
[2018-12-27] MEDS: ALPRAZolam 0.5 MG TAB PO PRN ×2 (01:05→08:35)
[2018-12-27] MEDS: IPRATROPIUM-ALBUTEROL 3 ML NEB INHALATION SCH ×2 (07:16→11:04)
[2018-12-27 07:54] LABS: Glucose,Whole Blood 125 mg/dL (75-99)
[2018-12-27] MEDS: INSULIN ASPART (NovoLOG) 100 UNIT/ML VIAL SQ SCH ×2 (07:54→12:50)
[2018-12-27] MEDS: PANTOPRAZOLE 40 MG TABLET PO SCH (08:27)
[2018-12-27] MEDS: methylPREDNISolone SOD SUCCI 40 MG/ML 1 ML VIAL IV SCH (08:27)
[2018-12-27] MEDS: CLINDAMYCIN 150 MG CAP PO SCH (08:27)
[2018-12-27] MEDS: FUROSEMIDE 40 MG TAB PO SCH (08:27)
[2018-12-27] MEDS: busPIRone HCl 5 MG TAB PO SCH (08:28)
[2018-12-27] MEDS: SERTRALINE 100 MG TAB PO SCH (08:28)
[2018-12-27] MEDS: HYDROcodone/APAP 5-325MG 1 EACH TAB PO PRN ×2 (08:35→12:48)
[2018-12-27 11:02] LABS: Glucose,Whole Blood 177 mg/dL (75-99)
[2018-12-27 12:24] VITALS: BP 114/81; PULSE 91; RESP 17; TEMP 98.3
--- NOTE | 2018-12-27 12:43 | P.PN ---
Subjective Progress Note Date: 12/27/18 Principal diagnosis: Hypoxemia secondary to fluid volume overload/infiltrates The patient is seen today 12/27/2018 in follow-up on the regular medical floor. She is awake and alert in no acute distress. She denies any worsening shortness of breath, cough or congestion. Maintaining good O2 saturations in the 90s on room air. She's afebrile. Hemodynamically stable. Bronchial biopsies revealed features of organizing pneumonia. No evidence of malignancy. Objective - Vital Signs Vital signs: Vital Signs Temp 98.3 F 12/27/18 12:23 Pulse 91 12/27/18 12:23 Resp 17 12/27/18 12:23 BP 114/81 12/27/18 12:23 Pulse Ox 94 L 12/27/18 12:23 Intake & Output 12/26/18 12/27/18 12/27/18 18:59 06:59 18:59 Intake Total 1580 Output Total 140 Balance 1440 Intake: Oral 1580 Output: Urine 140 Other: Voiding Method Bedside Commode # Voids 3 2 - Exam GENERAL EXAM: Alert, pleasant, 43-year-old obese female, currently on room air. HEAD: Normocephalic/atraumatic. EYES: Normal reaction of pupils, equal size. Conjunctiva pink, sclera white. NOSE: Clear with pink turbinates. THROAT: No erythema or exudates. NECK: No masses, no JVD, no thyroid enlargement, no adenopathy. Midline neck tracheostomy stoma is covered with a dressing. CHEST: No chest wall deformity. Symmetrical expansion. LUNGS: Equal air entry with a few scattered rhonchi, crackles in the bases. CVS: Regular rate and rhythm, normal S1 and S2, no gallops, no murmurs, no rubs ABDOMEN: Soft, nontender. No hepatosplenomegaly, normal bowel sounds, no guarding or rigidity. PEG tube removed. EXTREMITIES: No clubbing, no edema, no cyanosis, 2+ pulses and upper and lower extremities. Left anterior forearm with large scabbed area on anterior surface MUSCULOSKELETAL: Muscle strength and tone normal. SPINE: No scoliosis or deformity SKIN: No rashes CENTRAL NERVOUS SYSTEM: No focal deficits, tone is normal in all 4 extremities. PSYCHIATRIC: Alert and oriented -3. Appropriate affect. Intact judgment and insight. - Labs CBC & Chem 7: 12/26/18 06:48 12/25/18 06:44 Labs: Abnormal Lab Results - Last 24 Hours (Table) 12/26/18 12/26/18 12/27/18 Range/Units 16:39 20:01 07:52 POC Glucose (mg/dL) 143 H 177 H 125 H (75-99) mg/dL 12/27/18 Range/Units 10:59 POC Glucose (mg/dL) 177 H (75-99) mg/dL Microbiology - Last 24 Hours (Table) 12/24/18 12:48 Gram Stain - Final Bronchial Washings - Random Bronchial Washings Culture - Final Assessment and Plan Assessment: Assessment: #1. Acute hypoxemic and hypercapnic respiratory failure related to bilateral pneumonia, pulmonary edema. Recovered and on room air. #2. 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 Bronchial wash cultures reveal no growth. Pathology is suggestive of organizing pneumonia without evidence of malignancy. #3. Recent episode of acute respiratory failure following a suicide attempt with methamphetamines, marijuana, requiring intubation and has been on mechanical ventilation, and subsequent tracheostomy and PEG tube placement for failure to wean. Decannulated prior to admission and PEG tube removed today. #4. Small iatrogenic pneumothorax following bronchoscopy with BAL. Thora vent placed and subsequently removed today. Right lung fully expanded. #5. History of polysubstance abuse #6. Multiple suicide attempts #7. History of ARDS #8. Severe rhabdomyolysis last admission, resolved #9. Acute kidney injury during last admission, resolved #10. History of of methicillin sensitive staph aureus pneumonia #11. Metabolic encephalopathy #12. History of depression #13. History of obesity Plan: The patient was seen and evaluated by Dr. Og. She has recovered and is on room air. Bronchial biopsies reveal organizing pneumonia. She is recovered. PEG tube removed. Thora-Vent removed. Right lung remained expanded. She is cleared for discharge from the pulmonary standpoint. Follow-up in our office in 1-2 weeks' time. Remain on prednisone 20 mg daily until then. Complete her course of antibiotics. She is encouraged to call sooner with any recurrence of symptoms or other questions or concerns. I, the cosigning physician, performed a history & physical examination of the patient. Lungs sounds with crackles in the bilateral posterior bases. Maintaining good O2 saturations in the 90s on room air. I discussed the assessment and plan of care with my nurse practitioner, Effie Ayala. I attest to the above note as dictated by her.
--- NOTE | 2018-12-27 14:11 | P.DS ---
Providers Date of admission: 12/16/18 19:46 Expected date of discharge: 12/27/18 Attending physician: Weston Landa Consults: 12/16/18 19:46 Consult Physician Routine Consulting Provider: Robbie Og Consult Reason/Comments: hypoxic respiratory failure Do you want consulting provider notified?: Yes 12/17/18 17:10 Consult Physician Routine Consulting Provider: Rudy Lugo Consult Reason/Comments: left forearm wound Do you want consulting provider notified?: Yes 12/19/18 19:07 Consult Physician Routine Consulting Provider: Cristoabl Campbell V Consult Reason/Comments: chf Do you want consulting provider notified?: Yes Primary care physician: [facility] Course: very pleasant 43-year-old female who was admitted to the ICU for shortness of breath.workup in progress for possible CHF. She is on Lasix She was also found to have pneumonia possible thoughts are given to aspiration pneumonia. She is on clindamycin for that. She is also on steroids. Initially she was having high oxygen requirements. She was continued on clindamycin and steroids. She was also put on Lasix as well. She started to improve slowly. Pulmonology decided to do a bronchoscopy to rule out boop. Bronchoscopy did not show any growth of organisms and the pathology still pending at the time of discharge. Patient had a pneumothorax the right side status post bronchoscopy and the repeat chest x-ray showed worsening of the pneumothorax so she had a thora vent inserted in the right chest which was removed 2 days after. Patient remained asymptomatic in terms of the pneumothorax she was not having any shortness of breath or cough or chest pain racing heart. Her PEG tube was also removed by pulmonology On 12/27/2018 The patient continued to show improvement she was not complaining of any chest pain racing heart, no cough no shortness of breath, no abdominal pain, no racing heart On exam, alert and oriented x3. HEENT: Conjunctivae normal. eyes normal. NECK: No JVD. No thyroid enlargement. No LNs, chest tube CARDIOVASCULAR: S1, S2 muffled. No murmur RESPIRATION: Breath sounds diminished in the bases. No rhonchi or crackles. No bronchial breathing. ABDOMEN: Soft, nontender . No guarding. no masses palpable. No ascites, No hepatosplenomegaly.Bowel sounds heard. LEGS: No edema. no swelling NERVOUS SYSTEM: Cranial N 2-12 grossly normal. Moves all 4 limbs. No focal deficits. No sensory deficit. No signs of cerebellar dysfucntion. Skin: no ulcer no rash Patient will does be discharged on long tapering dose of steroids Patient will need to follow with pulmonology in one week Patient will also need to follow with the primary care doctor in a week. Patient is requested to call and make an appointment Patient Condition at Discharge: Fair Plan - Discharge Summary New Discharge Prescriptions: New Clindamycin [Cleocin] 150 mg PO Q8HR 7 Days #21 cap predniSONE 0 mg PO DIRECTED #60 tab Continue Sertraline HCl [Zoloft] 200 mg PO PC-BRKFST busPIRone HCL 15 mg PO BID Melatonin 2 mg PO HS tab ALPRAZolam [Xanax] 0.5 mg PO TID PRN PRN Reason: Anxiety cloNIDine HCL [Catapres] 0.2 mg PO HS Ipratropium-Albuterol Nebulize [Duoneb 0.5 mg-3 mg/3 ml Soln] 3 ml INHALATION RT-QID PRN PRN Reason: Shortness Of Breath Discharge Medication List Sertraline HCl [Zoloft] 200 mg PO PC-BRKFST 11/16/18 [History] busPIRone HCL 15 mg PO BID 11/16/18 [History] Melatonin 2 mg PO HS tab 12/03/18 [Rx] ALPRAZolam [Xanax] 0.5 mg PO TID PRN 12/16/18 [History] Ipratropium-Albuterol Nebulize [Duoneb 0.5 mg-3 mg/3 ml Soln] 3 ml INHALATION RT-QID PRN 12/16/18 [History] cloNIDine HCL [Catapres] 0.2 mg PO HS 12/16/18 [History] Clindamycin [Cleocin] 150 mg PO Q8HR 7 Days #21 cap 12/27/18 [Rx] predniSONE 0 mg PO DIRECTED #60 tab 12/27/18 [Rx] Follow up Appointment(s)/Referral(s): [facility], [NON-STAFF] - Leandro Mendoza DO [Primary Care Provider] - 1-2 days Robbie Og MD [STAFF PHYSICIAN] - 1 Week Patient Instructions/Handouts: Clindamycin (By mouth), Prednisone (By mouth) Activity/Diet/Wound Care/Special Instructions: If you start having increased shortness of breath or cough, any fevers or chills, any pain in the chest, any racing heart, any headache, any loss of vision or blurry vision, any abdominal pain, any tingling numbness in the extremities, please call 911 and come to the ER immediately. Patient will need to keep up with appointment with pulmonology in a week. Please call on Saturday to make an appointment Activity as tolerated Regular Diet Discharge Disposition: HOME SELF-CARE
== END 2018-12-27 14:15 | disposition home or self-care (01) | DRG 166 ==
LOC: EC 16:30 → 3SCARD 19:46 → 2SICU 12-19 12:47 → 3NMEDONC 12-23 16:20
PROVIDERS: ADMIT Hospitalist; ATTEND Hospitalist
PROC: 0B9F8ZX Drainage of Right Lower Lung Lobe, Via Natural or Artificial Opening Endoscopic, Diagnostic (ICD-10-PCS; principal; 2018-12-24 11:30)
PROC: 0BBF8ZX Excision of Right Lower Lung Lobe, Via Natural or Artificial Opening Endoscopic, Diagnostic (ICD-10-PCS; principal; 2018-12-24 11:30)
PROC: 0W9930Z Drainage of Right Pleural Cavity with Drainage Device, Percutaneous Approach (ICD-10-PCS; 2018-12-24 11:30)
DX: J84.89 Other specified interstitial pulmonary diseases (principal); J96.01 Acute respiratory failure with hypoxia; J96.02 Acute respiratory failure with hypercapnia; I50.33 Acute on chronic diastolic (congestive) heart failure; E87.4 Mixed disorder of acid-base balance; Z68.41 Body mass index [BMI] 40.0-44.9, adult; J95.811 Postprocedural pneumothorax; F32.9 Major depressive disorder, single episode, unspecified; F41.9 Anxiety disorder, unspecified; F17.200 Nicotine dependence, unspecified, uncomplicated; Z93.1 Gastrostomy status; E66.01 Morbid (severe) obesity due to excess calories; D64.9 Anemia, unspecified; E87.6 Hypokalemia; Z86.19 Personal history of other infectious and parasitic diseases; Z88.2 Allergy status to sulfonamides; Z86.14 Personal history of Methicillin resistant Staphylococcus aureus infection; Z86.39 Personal history of other endocrine, nutritional and metabolic disease; Z87.01 Personal history of pneumonia (recurrent)
CPT/HCPCS: 31624; 31628; 36410; 36415; 36600; 71045; 71046; 71275; 72050; 74230; 76937; 80048; 80306; 81025; 82164; 82550; 82803; 82805; 83605; 83735; 83880; 84132; 84145; 85025; 85027; 85379; 85652; 86038; 86255; 86431; 87040; 87070; 87102; 87116; 87205; 87206; 87252; 87496; 87498; 87502; 87529; 87634; 87798; 88108; 88305; 93005; 93306; 94640; 94660; 94760; 96365; 99285

== ENCOUNTER → 2019-05-09 | Outpatient (CLI) | payer OTHER ==
[2019-05-09 14:49] LABS: Anisocytosis Slight; Basophils # (A) 0.1 k/uL (0-0.2); Basophils % (A) 1 %; Eosinophils # (A) 0.2 k/uL (0-0.7); Eosinophils % (A) 1 %; HCT 40.7 % (34.0-46.0); HGB 12.9 gm/dL (11.4-16.0); Lymphocytes # (A) 3.4 k/uL (1.0-4.8); Lymphocytes % (A) 31 %; MCHC 31.7 g/dL (31.0-37.0); MCV 85.1 fL (80.0-100.0); Mean Platelet Volume 6.9; Monocytes # (A) 0.4 k/uL (0-1.0); Monocytes % (A) 3 %; Neutrophils # (A) 6.9 k/uL (1.3-7.7); Neutrophils % (A) 62 %; Platelet Count 397 k/uL (150-450); RBC 4.78 m/uL (3.80-5.40)
[2019-05-09 15:17] LABS: ALT 43 U/L (9-52); AST 17 U/L (14-36); African American GFR (CKD) >90 (>60 ml/min/1.73 sqM); Albumin 3.9 g/dL (3.5-5.0); Alkaline Phosphatase 96 U/L (38-126); Anion Gap 7 mmol/L; Blood Urea Nitrogen 11 mg/dL (7-17); Calcium 9.1 mg/dL (8.4-10.2); Carbon Dioxide 23 mmol/L (22-30); Chloride 113 mmol/L (98-107); Creatine Kinase 46 U/L (30-135); Glucose 99 mg/dL (74-99); Sodium 143 mmol/L (137-145); Total Bilirubin 0.1 mg/dL (0.2-1.3); Total Protein 6.8 g/dL (6.3-8.2)
== END | disposition home or self-care (01) ==
LOC: RADXRMAIN 14:15
PROVIDERS: ATTEND Internal Medicine Critical Care Medicine
DX: N17.9 Acute kidney failure, unspecified (principal)
CPT/HCPCS: 80053; 82550; 84439; 84443; 85025

== ENCOUNTER 2019-05-30 03:02 | Inpatient (IN) | payer OTHER ==
[2019-05-30] MEDS ORDERED: LORazepam 2 MG/ML INJ IV STA (03:16)
[2019-05-30] MEDS ORDERED: ETOMIDATE 2 MG/ML 10 ML VIAL IVP STA (03:20)
[2019-05-30] MEDS ORDERED: ROCURONIUM BROMIDE 10 MG/ML 10 ML VIAL IV STA ×2 (03:20→04:36)
[2019-05-30] MEDS ORDERED: MIDAZOLAM 1 MG/ML 5 ML VIAL IV STA ×2 (03:20→04:26)
[2019-05-30] MEDS ORDERED: PROPOFOL 1,000 MG in EMPTY BAG 1 BAG IV ONE (03:37)
--- NOTE | 2019-05-30 03:39 | ED ---
Psych HPI - General Chief Complaint: Psychiatric Symptoms Stated Complaint: not taking meds Time Seen by Provider: 05/30/19 03:16 Source: family Mode of arrival: ambulatory - History of Present Illness Initial Comments: Kristina is a 43-year-old female with extensive past medical history most significant for intentional overdose in the past resulting in intubation and prolonged ICU admission, subsequent episode of significant pneumonia or intubation patient was previously trached and pegged. Is brought to the emergency department today by her parents. Apparently the patient was home alone with her 10-year-old daughter who called the grandparents and reported the patient was acting oddly. They picked up the patient and the granddaughter and returned him to read their home. They noted the patient seemed to be agitated and irrational. She was walking around the house she continued to complain of being thirsty. They reported she had very odd behavior such as turning on the microwave, repeatedly opening cupboards in the refrigerator but not taking anything out or doing anything productive. Her behaviors were not reviewed direct double. She seems very agitated. They decided to bring her to the emergency department for further evaluation concern for ingestion. 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 - Related Data Home Medications Medication Instructions Recorded Confirmed Sertraline HCl [Zoloft] 200 mg PO [id number] 11/16/18 05/30/19 busPIRone HCL 15 mg PO TID 11/16/18 05/30/19 ALPRAZolam [Xanax] 0.5 mg PO DAILY PRN 12/16/18 05/30/19 Atenolol [Tenormin] 50 mg PO DAILY 05/30/19 05/30/19 hydrOXYzine HCL [Atarax] 25 mg PO HS 05/30/19 05/30/19 Allergies Allergy/AdvReac Type Severity Reaction Status Date / Time Sulfa (Sulfonamide Allergy Itching Verified 05/30/19 07:21 Antibiotics) sulfamethoxazole Allergy Rash/Hives Verified 05/30/19 07:21 [From Bactrim] trimethoprim [From Bactrim] Allergy Rash/Hives Verified 05/30/19 07:21 Review of Systems ROS Statement: Those systems with pertinent positive or pertinent negative responses have been documented in the HPI. ROS Other: All systems not noted in ROS Statement are negative. Past Medical History Past Medical History: Pneumonia, Respiratory Disorder Additional Past Medical History / Comment(s): Polysubstane abuse, history of drug overdose, history of ARDS requiring intubation and mechanical ventilation, history of severe rhabdomyolysis and LUIS MIGUEL (recovered), history of MSSA pneumonia and sepsis, history of metabolic encephalopathy (recovered), hisotory of depression, suicide, obesity History of Any Multi-Drug Resistant Organisms: None Reported Date of last positivie culture/infection: None MDRO Source:: None Past Surgical History: No Surgical Hx Reported Additional Past Surgical History / Comment(s): breast biopsy (date unknown) Past Anesthesia/Blood Transfusion Reactions: No Reported Reaction Past Psychological History: Anxiety, Depression Past Drug Use History: Marijuana, Methamphetamine, None Reported - Past Family History Mother Family Medical History: No Reported History General Exam - General Exam Comments Initial Comments: Physical Exam GENERAL: Obese female in acute distress HENT: Normocephalic, Atraumatic. EYES: Pupils 3 mm reactive PULMONARY: Patient initially screaming, combative noncompliant with evaluation been having periods of apnea CARDIOVASCULAR: Regular rate and rhythm ABDOMEN: Soft and nontender with normal bowel sounds. PEG tube scar SKIN: Multiple scars on the extremities, skin is diaphoretic : Normal external genitalia NEUROLOGIC: Patient screaming, incomprehensible words Patient screaming Stone help me patient has clear speech MUSCULOSKELETAL: Normal extremities with adequate strength and full range of motion. No lower extremity swelling or edema. No calf tenderness. PSYCHIATRIC: Agitated, acutely psychotic Course Vital Signs 05/30/19 05/30/19 05/30/19 03:25 03:35 03:40 Pulse Rate 70 67 64 Respiratory 28 H 14 14 Rate Blood Pressure 121/107 81/33 84/33 O2 Sat by Pulse 93 L 97 98 Oximetry 05/30/19 05/30/19 05/30/19 03:45 03:50 03:55 Pulse Rate 56 L 54 L 53 L Respiratory 14 23 14 Rate Blood Pressure 72/43 72/36 68/34 O2 Sat by Pulse 98 98 98 Oximetry 05/30/19 05/30/19 05/30/19 04:05 04:20 04:30 Pulse Rate 51 L 48 L 44 L Respiratory 14 16 14 Rate Blood Pressure 73/35 81/46 91/54 O2 Sat by Pulse 98 98 98 Oximetry 05/30/19 05/30/19 05/30/19 04:35 04:40 04:45 Pulse Rate 49 L 46 L 44 L Respiratory 15 14 14 Rate Blood Pressure 95/55 82/47 87/53 O2 Sat by Pulse 100 98 98 Oximetry 05/30/19 05/30/19 05/30/19 04:50 04:55 05:00 Pulse Rate 42 L 41 L 43 L Respiratory 14 14 14 Rate Blood Pressure 92/58 93/61 98/62 O2 Sat by Pulse 98 98 98 Oximetry 05/30/19 05/30/19 05/30/19 05:05 05:10 05:15 Pulse Rate 44 L 42 L 42 L Respiratory 14 18 18 Rate Blood Pressure 102/65 101/64 110/70 O2 Sat by Pulse 98 98 99 Oximetry 05/30/19 05/30/19 05/30/19 05:20 05:25 05:30 Pulse Rate 42 L 39 L 42 L Respiratory 18 20 25 H Rate Blood Pressure 116/71 123/80 130/78 O2 Sat by Pulse 99 99 99 Oximetry 05/30/19 05/30/19 05/30/19 05:40 06:00 06:30 Pulse Rate 46 L 50 L Respiratory 18 18 Rate Blood Pressure 117/75 109/67 101/61 O2 Sat by Pulse 100 100 Oximetry 05/30/19 05/30/19 05/30/19 06:35 06:40 06:45 Pulse Rate 49 L 49 L 49 L Respiratory 18 18 18 Rate Blood Pressure 100/67 106/66 107/66 O2 Sat by Pulse 100 100 100 Oximetry 05/30/19 05/30/19 05/30/19 06:50 06:55 07:00 Pulse Rate 48 L 48 L 64 Respiratory 18 18 20 Rate Blood Pressure 103/65 101/70 103/68 O2 Sat by Pulse 100 Oximetry 05/30/19 05/30/19 05/30/19 07:05 07:10 07:15 Pulse Rate 57 L 57 L 56 L Respiratory 18 19 18 Rate Blood Pressure 101/62 92/45 82/45 O2 Sat by Pulse 100 100 Oximetry 05/30/19 05/30/19 07:20 07:30 Pulse Rate 57 L 58 L Respiratory 18 18 Rate Blood Pressure 91/56 98/58 O2 Sat by Pulse 100 100 Oximetry Procedures - Intubation Sedative: Etomidate Paralytic: Rocuronium Laryngoscope: Cayla Size: 4 ET Tube Size: 7.5 ET Tube Uncuffed: No Tube Secured Depth (cm): 23 Tube Secured Location: teeth Tube Placement Confirmation: visualized tube passing through cords, equal breath sounds bilaterally, no breath sounds over epigastrium, confirmation by capnometry Patient Tolerated Procedure: well Intubation Complications: none Medical Decision Making - Medical Decision Making The patient was seen and evaluated upon arrival emergency department. The patient was noted to be highly agitated screaming yelling loudly 1 mg IM Ativan was ordered. Shortly after receiving the Ativan patient became calm but then was noted to become completely apneic and was not breathing and less stimulated. Upon stimulation patient would again sit up and begins screaming however without simulation patient would have prolonged periods of apnea become cyanotic Decision was made due to severely altered mental status to intubate the patient Patient was intubated, she then became hypotensive and bradycardic. She was started on Levophed peripherally. Labs resulted with no significant abnormalities. Urinalysis and urine drug screen are positive only for marijuana. Patient remained intubated requiring minimal sedation for the first 2 hours. Patient care was discussed with customer account administrator Dr. No jansen who recommended switching levophed to dopamine due to bradycardia. These orders were placed. He also requests cardiology consultation. On being transported to the CT suite patient became agitated B and coughing. At that time her heart rate did improve blood pressure was up and pressors were decreased. Head CT resulted with no acute findings Patient care was discussed with admitting hospitalist Dr. Solorio who agrees with plan for admission to the ICU Patient requiring more sedation. Propofol infusion was ordered - Lab Data Result diagrams: 05/30/19 03:25 05/30/19 03:25 Lab Results 05/30/19 05/30/19 05/30/19 Range/Units 03:25 03:25 03:25 WBC 21.9 H (3.8-10.6) k/uL RBC 4.78 (3.80-5.40) m/uL Hgb 13.6 (11.4-16.0) gm/dL Hct 41.2 (34.0-46.0) % MCV 86.3 (80.0-100.0) fL MCH 28.4 (25.0-35.0) pg MCHC 32.9 (31.0-37.0) g/dL RDW 16.3 H (11.5-15.5) % Plt Count 351 (150-450) k/uL Neutrophils % 73 % Lymphocytes % 21 % Monocytes % 4 % Eosinophils % 1 % Basophils % 0 % Neutrophils # 16.0 H (1.3-7.7) k/uL Lymphocytes # 4.7 (1.0-4.8) k/uL Monocytes # 0.8 (0-1.0) k/uL Eosinophils # 0.2 (0-0.7) k/uL Basophils # 0.1 (0-0.2) k/uL Hypochromasia Slight Anisocytosis Slight PT (9.0-12.0) sec INR (<1.2) APTT (22.0-30.0) sec Sample Site ABG pH (7.35-7.45) ABG pCO2 (35-45) mmHg ABG pO2 (83-108) mmHg ABG HCO3 (21-25) mmol/L ABG Total CO2 (19-24) mmol/L ABG O2 Saturation (94-97) % ABG Base Excess mmol/L Ganesh Test FiO2 % Sodium 143 (137-145) mmol/L Potassium 4.6 (3.5-5.1) mmol/L Chloride 113 H (98-107) mmol/L Carbon Dioxide 19 L (22-30) mmol/L Anion Gap 11 mmol/L BUN 18 H (7-17) mg/dL Creatinine 2.18 H (0.52-1.04) mg/dL Est GFR (CKD-EPI)AfAm 31 (>60 ml/min/1.73 sqM) Est GFR (CKD-EPI)NonAf 27 (>60 ml/min/1.73 sqM) Glucose 103 H (74-99) mg/dL Lactic Ac Sepsis Rflx Plasma Lactic Acid Elie 3.5 H* (0.7-2.0) mmol/L Calcium 9.5 (8.4-10.2) mg/dL Total Bilirubin 0.3 (0.2-1.3) mg/dL AST 23 (14-36) U/L ALT 15 (9-52) U/L Alkaline Phosphatase 90 (38-126) U/L Troponin I (0.000-0.034) ng/mL Total Protein 7.5 (6.3-8.2) g/dL Albumin 4.5 (3.5-5.0) g/dL Urine Color Urine Appearance (Clear) Urine pH (5.0-8.0) Ur Specific Dudley (1.001-1.035) Urine Protein (Negative) Urine Glucose (UA) (Negative) Urine Ketones (Negative) Urine Blood (Negative) Urine Nitrite (Negative) Urine Bilirubin (Negative) Urine Urobilinogen (<2.0) mg/dL Ur Leukocyte Esterase (Negative) Urine RBC (0-5) /hpf Urine WBC Clumps (None) /hpf Ur Squamous Epith Cells (0-4) /hpf Urine Bacteria (None) /hpf Hyaline Casts (0-2) /lpf Urine Mucus (None) /hpf Urine HCG, Qual (Not Detectd) Salicylates <1.0 mg/dL Urine Opiates Screen (NotDetected) Ur Oxycodone Screen (NotDetected) Urine Methadone Screen (NotDetected) Ur Propoxyphene Screen (NotDetected) Acetaminophen <10.0 ug/mL Ur Barbiturates Screen (NotDetected) U Tricyclic Antidepress (NotDetected) Ur Phencyclidine Scrn (NotDetected) Ur Amphetamines Screen (NotDetected) U Methamphetamines Scrn (NotDetected) U Benzodiazepines Scrn (NotDetected) Urine Cocaine Screen (NotDetected) U Marijuana (THC) Screen (NotDetected) Serum Alcohol <10 mg/dL 05/30/19 05/30/19 05/30/19 Range/Units 03:25 03:25 04:27 WBC (3.8-10.6) k/uL RBC (3.80-5.40) m/uL Hgb (11.4-16.0) gm/dL Hct (34.0-46.0) % MCV (80.0-100.0) fL MCH (25.0-35.0) pg MCHC (31.0-37.0) g/dL RDW (11.5-15.5) % Plt Count (150-450) k/uL Neutrophils % % Lymphocytes % % Monocytes % % Eosinophils % % Basophils % % Neutrophils # (1.3-7.7) k/uL Lymphocytes # (1.0-4.8) k/uL Monocytes # (0-1.0) k/uL Eosinophils # (0-0.7) k/uL Basophils # (0-0.2) k/uL Hypochromasia Anisocytosis PT 9.9 (9.0-12.0) sec INR 0.9 (<1.2) APTT 23.6 (22.0-30.0) sec Sample Site ABG pH (7.35-7.45) ABG pCO2 (35-45) mmHg ABG pO2 (83-108) mmHg ABG HCO3 (21-25) mmol/L ABG Total CO2 (19-24) mmol/L ABG O2 Saturation (94-97) % ABG Base Excess mmol/L Ganesh Test FiO2 % Sodium (137-145) mmol/L Potassium (3.5-5.1) mmol/L Chloride (98-107) mmol/L Carbon Dioxide (22-30) mmol/L Anion Gap mmol/L BUN (7-17) mg/dL Creatinine (0.52-1.04) mg/dL Est GFR (CKD-EPI)AfAm (>60 ml/min/1.73 sqM) Est GFR (CKD-EPI)NonAf (>60 ml/min/1.73 sqM) Glucose (74-99) mg/dL Lactic Ac Sepsis Rflx Y Plasma Lactic Acid Elie (0.7-2.0) mmol/L Calcium (8.4-10.2) mg/dL Total Bilirubin (0.2-1.3) mg/dL AST (14-36) U/L ALT (9-52) U/L Alkaline Phosphatase (38-126) U/L Troponin I <0.012 (0.000-0.034) ng/mL Total Protein (6.3-8.2) g/dL Albumin (3.5-5.0) g/dL Urine Color Urine Appearance (Clear) Urine pH (5.0-8.0) Ur Specific Dudley (1.001-1.035) Urine Protein (Negative) Urine Glucose (UA) (Negative) Urine Ketones (Negative) Urine Blood (Negative) Urine Nitrite (Negative) Urine Bilirubin (Negative) Urine Urobilinogen (<2.0) mg/dL Ur Leukocyte Esterase (Negative) Urine RBC (0-5) /hpf Urine WBC Clumps (None) /hpf Ur Squamous Epith Cells (0-4) /hpf Urine Bacteria (None) /hpf Hyaline Casts (0-2) /lpf Urine Mucus (None) /hpf Urine HCG, Qual (Not Detectd) Salicylates mg/dL Urine Opiates Screen (NotDetected) Ur Oxycodone Screen (NotDetected) Urine Methadone Screen (NotDetected) Ur Propoxyphene Screen (NotDetected) Acetaminophen ug/mL Ur Barbiturates Screen (NotDetected) U Tricyclic Antidepress (NotDetected) Ur Phencyclidine Scrn (NotDetected) Ur Amphetamines Screen (NotDetected) U Methamphetamines Scrn (NotDetected) U Benzodiazepines Scrn (NotDetected) Urine Cocaine Screen (NotDetected) U Marijuana (THC) Screen (NotDetected) Serum Alcohol mg/dL 05/30/19 05/30/19 05/30/19 Range/Units 04:36 04:36 04:47 WBC (3.8-10.6) k/uL RBC (3.80-5.40) m/uL Hgb (11.4-16.0) gm/dL Hct (34.0-46.0) % MCV (80.0-100.0) fL MCH (25.0-35.0) pg MCHC (31.0-37.0) g/dL RDW (11.5-15.5) % Plt Count (150-450) k/uL Neutrophils % % Lymphocytes % % Monocytes % % Eosinophils % % Basophils % % Neutrophils # (1.3-7.7) k/uL Lymphocytes # (1.0-4.8) k/uL Monocytes # (0-1.0) k/uL Eosinophils # (0-0.7) k/uL Basophils # (0-0.2) k/uL Hypochromasia Anisocytosis PT (9.0-12.0) sec INR (<1.2) APTT (22.0-30.0) sec Sample Site Left Brachial ABG pH 7.24 L (7.35-7.45) ABG pCO2 47 H (35-45) mmHg ABG pO2 148 H (83-108) mmHg ABG HCO3 20 L (21-25) mmol/L ABG Total CO2 21 (19-24) mmol/L ABG O2 Saturation 98.9 H (94-97) % ABG Base Excess -7.6 mmol/L Ganesh Test Yes FiO2 100 % Sodium (137-145) mmol/L Potassium (3.5-5.1) mmol/L Chloride (98-107) mmol/L Carbon Dioxide (22-30) mmol/L Anion Gap mmol/L BUN (7-17) mg/dL Creatinine (0.52-1.04) mg/dL Est GFR (CKD-EPI)AfAm (>60 ml/min/1.73 sqM) Est GFR (CKD-EPI)NonAf (>60 ml/min/1.73 sqM) Glucose (74-99) mg/dL Lactic Ac Sepsis Rflx Plasma Lactic Acid Elie (0.7-2.0) mmol/L Calcium (8.4-10.2) mg/dL Total Bilirubin (0.2-1.3) mg/dL AST (14-36) U/L ALT (9-52) U/L Alkaline Phosphatase (38-126) U/L Troponin I (0.000-0.034) ng/mL Total Protein (6.3-8.2) g/dL Albumin (3.5-5.0) g/dL Urine Color Yellow Urine Appearance Cloudy H (Clear) Urine pH 8.0 (5.0-8.0) Ur Specific Dudley 1.014 (1.001-1.035) Urine Protein 2+ H (Negative) Urine Glucose (UA) 1+ H (Negative) Urine Ketones Negative (Negative) Urine Blood Moderate H (Negative) Urine Nitrite Negative (Negative) Urine Bilirubin Negative (Negative) Urine Urobilinogen <2.0 (<2.0) mg/dL Ur Leukocyte Esterase Negative (Negative) Urine RBC 128 H (0-5) /hpf Urine WBC Clumps Moderate H (None) /hpf Ur Squamous Epith Cells 20 H (0-4) /hpf Urine Bacteria Rare H (None) /hpf Hyaline Casts 314 H (0-2) /lpf Urine Mucus Many H (None) /hpf Urine HCG, Qual Not Detected (Not Detectd) Salicylates mg/dL Urine Opiates Screen Not Detected (NotDetected) Ur Oxycodone Screen Not Detected (NotDetected) Urine Methadone Screen Not Detected (NotDetected) Ur Propoxyphene Screen Not Detected (NotDetected) Acetaminophen ug/mL Ur Barbiturates Screen Not Detected (NotDetected) U Tricyclic Antidepress Not Detected (NotDetected) Ur Phencyclidine Scrn Not Detected (NotDetected) Ur Amphetamines Screen Not Detected (NotDetected) U Methamphetamines Scrn Not Detected (NotDetected) U Benzodiazepines Scrn Not Detected (NotDetected) Urine Cocaine Screen Not Detected (NotDetected) U Marijuana (THC) Screen Detected H (NotDetected) Serum Alcohol mg/dL - EKG Data -: EKG Interpreted by Me EKG Comments: EKG was obtained after intubation once the patient was cooperative with examination, EKG was obtained at 3:55 AM, rate is 53 rhythm is sinus bradycardia there is normal axis, normal intervals, VA 162, care is 92, QTc [address] elevations or depressions no obvious interval prolongations concerning for toxic ingestions. Critical Care Time Critical Care Time: Yes Total Critical Care Time: 75 Critical Care Time: Critical Care Time Critical care time was exclusive of separately billable procedures and treating other patients and teaching time. Critical care was necessary to treat or prevent imminent or life-threatening deterioration. Given the critical condition in which the patient arrived, the patient was immediately assessed by myself and the nurse, and cardiac monitoring initiated due to the potential for rapid decompensation of the patient's clinical condition. During the course of the patients stay, I spent a considerable amount of time at the bedside performing serial re-evaluations of the patient's hemodynamic and clinical status because of the recognized potential threat to life or limb in this condition. I then had a chance to review not only all of the available current laboratory and radiographic studies obtained today, but I also reviewed old records available to me at the time. Additionally, any ancillary information available including tapper supervisor records were reviewed. Sequential vital signs were obtained. Disposition Clinical Impression: Acute respiratory failure with hypoxia Disposition: ADMITTED IP TO THIS HOSP Condition: Serious Is patient prescribed a controlled substance at d/c from ED?: No
[2019-05-30] MEDS ORDERED: NOREPINEPHRINE 8 MG in SODIUM CHLORIDE 0.9% 250 ML IV ONE (03:54)
[2019-05-30 04:01] LABS: Anisocytosis Slight; Basophils # (A) 0.1 k/uL (0-0.2); Basophils % (A) 0 %; Eosinophils # (A) 0.2 k/uL (0-0.7); Eosinophils % (A) 1 %; HCT 41.2 % (34.0-46.0); HGB 13.6 gm/dL (11.4-16.0); Hypochromasia Slight; Lymphocytes # (A) 4.7 k/uL (1.0-4.8); Lymphocytes % (A) 21 %; MCH 28.4 pg (25.0-35.0); MCHC 32.9 g/dL (31.0-37.0); MCV 86.3 fL (80.0-100.0); Mean Platelet Volume 8.5; Monocytes # (A) 0.8 k/uL (0-1.0); Monocytes % (A) 4 %; Neutrophils % (A) 73 %; Platelet Count 351 k/uL (150-450); RBC 4.78 m/uL (3.80-5.40); RDW 16.3 % (11.5-15.5); WBC 21.9 k/uL (3.8-10.6)
[2019-05-30 04:08] LABS: Allen Test Performed? Yes
[2019-05-30 04:09] LABS: ALT 15 U/L (9-52); AST 23 U/L (14-36); Acetaminophen <10.0 ug/mL; African American GFR (CKD) 31 (>60 ml/min/1.73 sqM); Albumin 4.5 g/dL (3.5-5.0); Alcohol <10 mg/dL; Alkaline Phosphatase 90 U/L (38-126); Anion Gap 11 mmol/L; Blood Urea Nitrogen 18 mg/dL (7-17); Calcium 9.5 mg/dL (8.4-10.2); Carbon Dioxide 19 mmol/L (22-30); Chloride 113 mmol/L (98-107); Glucose 103 mg/dL (74-99); Non-African American GFR(CKD) 27 (>60 ml/min/1.73 sqM); Potassium 4.6 mmol/L (3.5-5.1); Salicylate <1.0 mg/dL; Sodium 143 mmol/L (137-145); Total Bilirubin 0.3 mg/dL (0.2-1.3); Total Protein 7.5 g/dL (6.3-8.2)
[2019-05-30] MEDS ORDERED: GLUCAGON 1 MG/ML VIAL IVP STA (04:14)
--- NOTE | 2019-05-30 04:20 | XR ---
EXAMINATION TYPE: XR chest 1V portable DATE OF EXAM: 05/30/2019 COMPARISON: 05/07/2019 HISTORY: Intubation TECHNIQUE: Single frontal view of the chest is obtained. FINDINGS: Endotracheal tube is 2 cm into the right mainstem bronchus. There is some patchy atelectas is in the left lung. The right lung is clear. There is no gross heart failure. There are chest leads. IMPRESSION: Endotracheal tube is low and should BE pulled back 6 cm. There is developing atelectasis in the left lung no doubt due to obstruction of the left bronchus.
[2019-05-30] MEDS ORDERED: SODIUM CHLORIDE 0.9% 2,000 ML IV ONE (04:30)
[2019-05-30 04:51] LABS: INR 0.9 (<1.2)
[2019-05-30] MEDS ORDERED: SODIUM CHLORIDE 0.9% 1,000 ML IV ONE ×3 (04:51→18:48)
[2019-05-30 04:52] LABS: ABG Base Excess -7.6 mmol/L; ABG HCO3 20 mmol/L (21-25); ABG Oxygen Saturation 98.9 % (94-97); ABG PCO2 47 mmHg (35-45); ABG PH 7.24 (7.35-7.45); ABG PO2 148 mmHg (83-108); ABG TCO2 21 mmol/L (19-24)
[2019-05-30 04:52] LABS: Partial Thromboplastin Time 23.6 sec (22.0-30.0); Prothrombin Time 9.9 sec (9.0-12.0)
[2019-05-30 04:58] LABS: Appearance,Urine Cloudy (Clear); Bacteria,Urine Rare /hpf; Bilirubin,Urine Negative (Negative); Blood,Urine Moderate (Negative); Color,Urine Yellow; Glucose,Urine (UA) 1+ (Negative); Hyaline Casts,Urine 314 /lpf (0-2); Ketones,Urine Negative (Negative); Leukocyte Esterase,Urine Negative (Negative); Mucus,Urine Many /hpf; Nitrite,Urine Negative (Negative); Protein,Urine 2+ (Negative); RBC,Urine 128 /hpf (0-5); Specific Gravity,Urine 1.014 (1.001-1.035); Squamous Epithelial Cell,Urine 20 /hpf (0-4); Urobilinogen,Urine <2.0 mg/dL (<2.0)
[2019-05-30 05:16] LABS: Amphetamine Screen,Urine Not Detected (NotDetected); Barbiturate Screen,Urine Not Detected (NotDetected); Benzodiazepines Screen,Urine Not Detected (NotDetected); Cocaine Screen,Urine Not Detected (NotDetected); Methadone Screen, Urine Not Detected (NotDetected); Opiate Screen,Urine Not Detected (NotDetected); Oxycodone Screen, Urine Not Detected (NotDetected); Phencyclidine Screen,Urine Not Detected (NotDetected); Tricyclic Antidepressant,Urine Not Detected (NotDetected); Urn Cannabinoid Scrn Detected (NotDetected)
[2019-05-30] MEDS ORDERED: MIDAZOLAM 2 MG/2 ML VIAL IV STA (05:25)
[2019-05-30] MEDS ORDERED: DOPamine DRIP 800 MG in DEXTROSE/WATER 1 250ML.BAG IV ONE (05:28)
--- NOTE | 2019-05-30 06:12 | CT ---
EXAMINATION TYPE: CT brain wo con DATE OF EXAM: 05/30/2019 COMPARISON: 11/16/2018 HISTORY: intubated CT DLP: 1184.4 mGycm Automated exposure control for dose reduction was used. Ventricles and sulci appear normal. There is no mass effect nor midline shift. There is no sign of in tracranial hemorrhage. Calvarium is intact. There is 1 cm area of hypodensity lateral to the frontal horn of the right lateral ventricle. Calvarium is intact. 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 No change compared to old exam. No acute int racranial abnormality.
[2019-05-30] MEDS ORDERED: NALOXONE 0.4 MG/ML 1 ML VIAL IV PRN (06:47)
--- NOTE | 2019-05-30 06:50 | XR ---
EXAMINATION TYPE: XR chest 1V portable DATE OF EXAM: 05/30/2019 COMPARISON: Today HISTORY: Check tube placement TECHNIQUE: Single frontal view of the chest is obtained. FINDINGS: Endotracheal tube is in the body of the stomach. There is some pulmonary interstitial eduin a. Endotracheal tube is low and less than 1 cm from the shaw. There is no pleural effusion. IMPRESSION: Endotracheal tube is low and should BE pulled back 2 to 3 cm. Pulmonary interstitial gricelda ma and subsegmental atelectasis unchanged.
[2019-05-30] MEDS: SODIUM CHLORIDE 0.9% 1,000 ML IV SCH ×2 (07:15→16:41)
[2019-05-30 08:26] LABS: Glucose,Whole Blood 97 mg/dL (75-99)
[2019-05-30] MEDS ORDERED: CISATRACURIUM 2 MG/ML 5 ML VIAL IV ONE (08:50)
--- NOTE | 2019-05-30 09:06 | XR ---
EXAMINATION TYPE: XR chest 1V portable DATE OF EXAM: 05/30/2019 HISTORY: ET/og tube placement . REFERENCE: Previous study dated 05/30/2019. FINDINGS: The patient's ET tube has been pulled back and is now in good position with the tip 5 cm ab ove the shaw. An NG tube is present and its tip is within the stomach. The heart is mildly enlarged. There is vascular congestion and mild interstitial change. There is loly nting of both CP angles and I could not exclude small, bilateral effusions. IMPRESSION: 1. SATISFACTORY ET TUBE PLACEMENT. 2. CONTINUING CHANGES OF CONGESTIVE HEART FAILURE.
[2019-05-30 09:17] LABS: ABG Base Excess -8.9 mmol/L; ABG HCO3 19 mmol/L (21-25); ABG PCO2 45 mmHg (35-45); ABG PH 7.23 (7.35-7.45); ABG PO2 298 mmHg (83-108); ABG TCO2 20 mmol/L (19-24); Allen Test Performed? Yes
[2019-05-30] MEDS ORDERED: SODIUM BICARB 8.4% 50 ML SYR (1 MEQ/ML) IV STA (09:19)
[2019-05-30] MEDS: PROPOFOL 1,000 MG in EMPTY BAG 1 BAG IV SCH ×3 (09:30→21:36)
[2019-05-30] MEDS: PANTOPRAZOLE 40 MG/10 ML VIAL IV SCH (09:33)
[2019-05-30] MEDS: HEPARIN SODIUM,PORCINE 5,000 UNIT/ML 1 ML VIAL SQ SCH ×3 (09:33→23:29)
[2019-05-30] MEDS: PIPERACILLIN-TAZOBACTAM 3.375 GM in SODIUM CHLORIDE 0.9% 100 ML IVPB SCH ×3 (09:33→23:29)
--- NOTE | 2019-05-30 11:56 | PCN ---
PROCEDURE NOTE PROCEDURE PERFORMED: Placement of the right internal jugular triple-lumen catheter. PREOPERATIVE DIAGNOSIS: Acute respiratory failure secondary to drug overdose. POSTOPERATIVE DIAGNOSIS: Acute respiratory failure secondary to drug overdose. ANESTHESIA USED: 2 mL of 1% lidocaine. PROCEDURE IN DETAIL: The patient was placed in a Trendelenburg position, the area of the right cervical region was prepared in a sterile fashion and drapes were applied. The area was locally anesthetized with lidocaine. Then using the anterior approach, the right internal jugular vein was cannulated easily, a guidewire was placed. A dilator was also placed over the guidewire, then a triple-lumen catheter was inserted over the guidewire, and the guidewire was removed. Good blood flow in the 3 different ports was noted. No evidence of any immediate complications, chest x-ray was ordered postoperatively. MMODL / IJN: [id number] /
--- NOTE | 2019-05-30 11:58 | XR ---
EXAMINATION TYPE: XR chest 1V portable DATE OF EXAM: 05/30/2019 HISTORY: rt ij central line placement. REFERENCE: Previous study dated 05/30/2019. FINDINGS: The patient is ET tube and NG tube remain in place, unchanged in appearance. A right agriculture internship al jugular catheter is in place. Its tip is in the right atrium. The heart is enlarged. There is vascular congestion. There is left basilar airspace disease. There ar e small, bilateral effusions. IMPRESSION: 1. CARDIOMEGALY. 2. VASCULAR CONGESTION AND MILD EDEMA. 3. SOME SMALL, BILATERAL EFFUSIONS. 4. LEFT BASILAR AIRSPACE DISEASE.
--- NOTE | 2019-05-30 12:02 | PCN ---
PROCEDURE NOTE PROCEDURE PERFORMED: Placement of a right radial arterial line. PREOPERATIVE DIAGNOSES: Acute respiratory failure and bradycardia as well as hypotension. POSTOPERATIVE DIAGNOSES: Acute respiratory failure and bradycardia as well as hypotension. ANESTHESIA: Used none deployed. PROCEDURE: The right wrist was prepared in a sterile fashion and drapes were applied. The right radial artery was palpated, cannulated, and a guidewire was placed. A Cook's catheter was inserted over the guidewire, and the guidewire was removed. Good blood flow and good waveform were noted, no evidence of any immediate complications. Line was secured using 3.0 silk sutures. MMODL / IJN: [id number] /
[2019-05-30 12:23] LABS: Glucose,Whole Blood 99 mg/dL (75-99)
--- NOTE | 2019-05-30 12:37 | P.CNPUL ---
History of Present Illness Consult date: 05/30/19 Reason for consult: other (Acute hypoxic respiratory failure) Chief complaint: Mental status change History of present illness: This is a 43-year-old female quite familiar to my service from previous admissions secondary to multiple drug overdoses, and previous episodes of respiratory failure complicated by ARDS, and at one point required prolonged course of mechanical ventilation and followed by tracheostomy and PEG tube placement. Patient was eventually D cannulated, and the last time she was seen in our institution was back on 12/16/2018, she was seen mostly for diffuse bilateral pneumonia possibly aspiration type of pneumonia. And the patient had prior to this one episode of respiratory failure following a suicidal attempt with methamphetamine and marijuana. Patient is known to have history of polysubstance abuse, multiple suicide attempts in the past, history of ARDS, history of rhabdomyolysis, history of acute kidney injury, history of MRSA pneumonia, history of depression, obesity. Last night the patient presented to the ER mostly because her 10-year-old daughter at home was concerned about her behavior. The daughter called her grandparents, and the patient was noted to be agitated, irrational, walking around the house, and she continued to complain of being thirsty. She was repeatedly opening cupboards and the refrigerator. But not taking anything. She was not doing anything productive or that made much sense. Her behavior was concerning to the family, hence she was brought into the ER, and she was extremely agitated upon arrival. She was yelling and screaming. The initial impression that the patient may have overdosed on amphetamine, and upon arrival she was given Ativan by the ER physician. Shortly after Ativan was given, the patient was apneic and was not breathing unless stimulated. Patient ended up being intubated, and after intubation the patient developed hypotension and profound bradycardia. Initially placed on norepinephrine. However when I was notified about the patient, I recommended switching norepinephrine to dopamine. Her heart rate responded well to dopamine, the pressure stabilized nicely, patient was initially on as high as 20 mcg/kg/m of dopamine, however I was able to cut it down to 10 mcg/kg/m, and I plan to cut it down to further to 5 g or 2.5 mcg/kg/m. Her initial chest x-ray which was done post intubation showed the endotracheal tube was in the right mainstem bronchus, patient developed hazy opacities throughout the whole left l angelica, however the tube was adjusted, and better aeration was noted to left lung shortly after. However repeat chest x-ray in the ICU showed bilateral interstitial infiltrates/edema. Patient had minimal IV access upon presentation to the ICU, and her dopamine was running via a peripheral line. Hence I placed a right internal jugular central line, and switched dopamine to the central line. I have also placed a right radial arterial line for hemodynamic monitoring. ABG done shortly after showed a pO2 of 298 pCO2 of 45 pH of 7.23, hence the patient was placed on assist control rate of 20 tidal volume of 450 FiO2 was cut down to 50%, and she was given an amp of bicarb. Patient was also placed empirically on antibiotics. She had abnormal urinalysis, and there is a possibility that the patient may have aspirated hence his Zosyn was utilized. Drug screen came back basically negative, she only tested positive for marijuana. Patient has been on amlodipine at home, and it is not clear whether she may have overdosed on calcium channel blockers. Review of Systems ROS unobtainable: due to endotracheal tube Past Medical History Past Medical History: Pneumonia, Respiratory Disorder Additional Past Medical History / Comment(s): Polysubstane abuse, history of drug overdose, history of ARDS requiring intubation and mechanical ventilation, history of severe rhabdomyolysis and LUIS MIGUEL (recovered), history of MSSA pneumonia and sepsis, history of metabolic encephalopathy (recovered), hisotory of depression, suicide, obesity History of Any Multi-Drug Resistant Organisms: None Reported Date of last positivie culture/infection: None MDRO Source:: None Past Surgical History: No Surgical Hx Reported Additional Past Surgical History / Comment(s): breast biopsy (date unknown) Past Anesthesia/Blood Transfusion Reactions: No Reported Reaction Past Psychological History: Anxiety, Depression Smoking Status: Current every day smoker Past Alcohol Use History: None Reported, Unable to Obtain Additional Past Alcohol Use History / Comment(s): The patient was a smoker for at least 20 years 1 pack per day and quit in November 2018. She denies any IV drug use. She states she has abused Vicodin in the past. She is currently living with her daughter. There is a cat in the home. No recent travel. Past Drug Use History: Marijuana, Methamphetamine, None Reported - Past Family History Mother Family Medical History: No Reported History Medications and Allergies Home Medications Medication Instructions Recorded Confirmed Type Sertraline HCl [Zoloft] 200 mg PO PC-BRKFST 11/16/18 05/30/19 History busPIRone HCL 15 mg PO TID 11/16/18 05/30/19 History ALPRAZolam [Xanax] 0.5 mg PO DAILY PRN 12/16/18 05/30/19 History Atenolol [Tenormin] 50 mg PO DAILY 05/30/19 05/30/19 History hydrOXYzine HCL [Atarax] 25 mg PO HS 05/30/19 05/30/19 History Allergies Allergy/AdvReac Type Severity Reaction Status Date / Time Sulfa (Sulfonamide Allergy Itching Verified 05/30/19 07:21 Antibiotics) sulfamethoxazole Allergy Rash/Hives Verified 05/30/19 07:21 [From Bactrim] trimethoprim [From Bactrim] Allergy Rash/Hives Verified 05/30/19 07:21 Physical Exam Vitals: Vital Signs Pulse Resp BP Pulse Ox 05/30/19 11:45 85 17 100 05/30/19 11:30 73 20 100 05/30/19 11:15 78 20 100 05/30/19 11:00 81 20 100 05/30/19 10:45 79 20 100 05/30/19 10:30 71 15 100 05/30/19 10:15 81 20 100 05/30/19 10:00 96 48 H 96 05/30/19 09:45 68 22 100 05/30/19 09:30 64 28 H 100 05/30/19 09:15 64 18 100 05/30/19 09:00 59 L 18 121/76 100 05/30/19 08:45 76 21 131/85 100 05/30/19 08:30 81 19 105/86 100 05/30/19 08:15 77 20 105/86 100 05/30/19 08:00 79 19 139/112 100 05/30/19 07:45 108/65 05/30/19 07:30 58 L 18 98/58 100 05/30/19 07:20 57 L 18 91/56 100 05/30/19 07:15 56 L 18 82/45 100 05/30/19 07:10 57 L 19 92/45 100 05/30/19 07:05 57 L 18 101/62 05/30/19 07:00 64 20 103/68 05/30/19 06:55 48 L 18 101/70 100 05/30/19 06:50 48 L 18 103/65 05/30/19 06:45 49 L 18 107/66 100 05/30/19 06:40 49 L 18 106/66 100 05/30/19 06:35 49 L 18 100/67 100 05/30/19 06:30 50 L 18 101/61 100 05/30/19 06:00 46 L 18 109/67 100 05/30/19 05:40 117/75 05/30/19 05:30 42 L 25 H 130/78 99 05/30/19 05:25 39 L 20 123/80 99 05/30/19 05:20 42 L 18 116/71 99 05/30/19 05:15 42 L 18 110/70 99 05/30/19 05:10 42 L 18 101/64 98 05/30/19 05:05 44 L 14 102/65 98 05/30/19 05:00 43 L 14 98/62 98 05/30/19 04:55 41 L 14 93/61 98 05/30/19 04:50 42 L 14 92/58 98 05/30/19 04:45 44 L 14 87/53 98 05/30/19 04:40 46 L 14 82/47 98 05/30/19 04:35 49 L 15 95/55 100 05/30/19 04:30 44 L 14 91/54 98 05/30/19 04:20 48 L 16 81/46 98 05/30/19 04:05 51 L 14 73/35 98 05/30/19 03:55 53 L 14 68/34 98 05/30/19 03:50 54 L 23 72/36 98 05/30/19 03:45 56 L 14 72/43 98 05/30/19 03:40 64 14 84/33 98 05/30/19 03:35 67 14 81/33 97 05/30/19 03:25 70 28 H 121/107 93 L Intake and Output 05/29/19 05/30/19 05/30/19 22:59 06:59 14:59 Intake Total 2.355 611.721 Output Total 10 1325 Balance -7.645 -713.279 Intake: IV 500 0.9 2 125 500 Intake, IV Titration 2.355 111.721 Amount DOPamine DRIP 800 mg In 60.052 Dextrose/Water 1 250ml. bag @ 2 MCG/KG/MIN 3.912 mls/hr IV .Q24H ONE Rx#: [id number] Norepinephrine 8 mg In 2.355 Sodium Chloride 0.9% 250 ml @ 0.05 MCG/KG/MIN 10. 094 mls/hr IV .Q24H ONE Rx#:[id number] Piperacillin-Tazobactam 3 50 .375 gm In Sodium Chloride 0.9% 100 ml @ 25 mls/hr IVPB Q8HR CATHY Rx# :[id number] Propofol 1,000 mg In 1.669 Empty Bag 1 bag @ Titrate IV .Q0M ONE Rx#: [id number] Output: Urine 10 1325 Other: Weight 104.326 kg 112 kg ABP, PAP, CO, CI - Last 8 Hours Arterial Blood Pressure 169/92 Arterial Blood Pressure 155/76 Arterial Blood Pressure 159/78 Arterial Blood Pressure 146/79 Arterial Blood Pressure 161/77 Arterial Blood Pressure 170/82 Arterial Blood Pressure 176/85 Arterial Blood Pressure 188/84 Arterial Blood Pressure 157/74 Arterial Blood Pressure 161/78 Physical Exam: Revealed a 43-year-old female on mechanical ventilation, obese, sedated, on propofol, in no distress. Head: Atraumatic, normocephalic. HEENT:[Neck is supple.] [No neck masses.] [No thyromegaly.] [No JVD.] PERRLA, EOMI, no icterus, dry mucous membranes noted. Endotracheal tube and orogastric tube are intact Chest: [Symmetrical chest expansion. Minimal fine crackles at the bases, no rhonchi and no wheezes.] Cardiac Exam: [Normal S1 and S2, no S3 gallop, no murmur.] Abdomen: [Obese, Soft, nontender, no megaly, no rebound, no guarding, normal bowel sounds.] Extremities: [No clubbing, no edema, no cyanosis.] Neurological Exam: Pupils are equally reactive to light, patient is arousable, she gets extremely agitated and gagging on the endotracheal tube, with deep painful stimuli. Hyperreflexia noted bilaterally. Mental status could not be assessed. Patient remains on propofol. Psychiatric: Could not be assessed. Skin: Evidence of tracheostomy scar noted at the base of her neck anteriorly. Well-healed, and clean. Results - Laboratory Findings CBC and BMP: 05/30/19 03:25 05/30/19 03:25 ABG ABG pH 7.23 (7.35-7.45) L 05/30/19 09:15 ABG pCO2 45 mmHg (35-45) 05/30/19 09:15 ABG pO2 298 mmHg (83-108) H 05/30/19 09:15 ABG O2 Saturation 100.0 % (94-97) H 05/30/19 09:15 PT/INR, D-dimer PT 9.9 sec (9.0-12.0) 05/30/19 03:25 INR 0.9 (<1.2) 05/30/19 03:25 Abnormal lab findings: Abnormal Labs 05/30/19 05/30/19 05/30/19 03:25 03:25 03:25 WBC 21.9 H RDW 16.3 H Neutrophils # 16.0 H ABG pH ABG pCO2 ABG pO2 ABG HCO3 ABG O2 Saturation Chloride 113 H Carbon Dioxide 19 L BUN 18 H Creatinine 2.18 H Glucose 103 H Plasma Lactic Acid Elie 3.5 H* Urine Appearance Urine Protein Urine Glucose (UA) Urine Blood Urine RBC Urine WBC Urine WBC Clumps Ur Squamous Epith Cells Urine Bacteria Hyaline Casts Urine Mucus U Marijuana (THC) Screen 05/30/19 05/30/19 05/30/19 04:36 04:47 09:15 WBC RDW Neutrophils # ABG pH 7.24 L 7.23 L ABG pCO2 47 H ABG pO2 148 H 298 H ABG HCO3 20 L 19 L ABG O2 Saturation 98.9 H 100.0 H Chloride Carbon Dioxide BUN Creatinine Glucose Plasma Lactic Acid Elie Urine Appearance Cloudy H Urine Protein 2+ H Urine Glucose (UA) 1+ H Urine Blood Moderate H Urine RBC 128 H Urine WBC 21 H Urine WBC Clumps Moderate H Ur Squamous Epith Cells 20 H Urine Bacteria Rare H Hyaline Casts 314 H Urine Mucus Many H U Marijuana (THC) Screen Detected H - Diagnostic Findings Chest x-ray: image reviewed (As noted in HPI.) Additional studies: CT brain showed 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 Otherwise unremarkable. Assessment and Plan Assessment: Impression: 1 acute hypoxic respiratory failure secondary to multiple drugs overdose, patient could have overdosed on her calcium channel blockers, possibly overdosed on Atarax. 2 diffuse pulmonary infiltrates, suspect aspiration pneumonia, although the possibility of interstitial edema is not entirely ruled out. 3 acute kidney injury most likely secondary to hypotension on her initial presentation to the ER. 4 profound bradycardia, responding to dopamine infusion, we'll continue dopamine infusion at 5-10 mcg/kg/m for now. Cardiology was consulted. 5 possible urinary tract infection, however strongly doubt sepsis. The presenta tion was not a presentation of sepsis. Patient will be empirically on antibiotics anyway. 6 history of polysubstance abuse, multiple admissions with respiratory failure secondary to substance abuse and drug overdose. 7 history of depression 8 history of MRSA skin infection 9 acute metabolic and respiratory acidosis, improving with ventilatory measures and with sodium bicarb which was given earlier. Recommendation: continue ventilatory support. Nutritional support. GI and DVT prophylaxis. Continue dopamine and titrate accordingly. Continue antibiotics/empirically. Bronchodilators. Cardiology was consulted. Doubt any intervention is necessary at this point. Continue propofol for the time being. Diuretics trial for what seems to be interstitial infiltrates/edema and follow- up chest x-ray. Urine and blood cultures. We'll continue to follow closely. Patient is definitely critically ill. And she will remain in the ICU. Time with Patient: Greater than 30
[2019-05-30] MEDS: FUROSEMIDE 10 MG/ML 2 ML VIAL IV SCH ×2 (13:31→20:44)
--- NOTE | 2019-05-30 14:11 | CONS ---
CONSULTATION Mrs. Leach is a 43-year-old female who is seen for cardiac evaluation. This patient's medical records reviewed. This patient is currently being intubated and the history was obtained from the chart as well as from the nurse. This patient has a known past history of intentional drug overdose with a prior history of admission with respiratory failure, intubation, and pneumonia. The patient was brought to the hospital with agitation as she was acting irrational and she was walking around the house complaining of being thirsty. The patient's behavior was abnormal. She was brought into the emergency room. The patient received some Ativan, but subsequently she became apneic and respiratory failure and the patient was intubated. The patient had evidence of metabolic acidosis as well as lactic acidosis. The patient was started on Levophed in the emergency room, patient developed some sinus bradycardia and so consultation was requested. The Levophed subsequently was discontinued and she is currently getting dopamine. Patient remains stable cardiac-crum. Denies any chest pain. No dysrhythmias are noted. MEDICATIONS: Home medications included Zoloft, Buspirone, Xanax and Tenormin. PAST MEDICAL HISTORY: Includes a polysubstance abuse, history of pneumonia, sepsis, metabolic encephalopathy, history of depression, suicide, and obesity, breast biopsy. SOCIAL HISTORY: Past drug use history includes methamphetamine and marijuana. PHYSICAL EXAMINATION: At present reveals a 43-year-old female who is currently sedated and intubated. Blood pressure is 169/70 mmHg, heart rate is 85 per minute. Head and HEENT examination is negative. Neck is supple. There is no increase in jugular venous pressure. Both the carotid pulses are felt. There is no bruit. Chest is symmetrical. Heart: The PMI is not felt. First and second heart sounds are normal. There is no evidence of any murmur. Lungs reveal bilateral diminished air entry. Abdomen is negative. EXTREMITIES: Peripheral pulses 1+. EKG showed evidence of sinus bradycardia with mildly prolonged QT interval. The patient's lactic acid level is 2.0. Initial lactic acid was 3.5. FINAL IMPRESSION: This patient is admitted with change in the mental status and acute possible sepsis syndrome or respiratory failure and lactic acidosis. The patient had a transient episode of bradycardia since she was on Levophed, but at present patient remains stable cardiac-crum. We will obtain echo and Doppler study. No further cardiac workup is needed at this time. MMODL / IJN: [id number] /
[2019-05-30 18:00] LABS: Glucose,Whole Blood 88 mg/dL (75-99)
[2019-05-30] MEDS ORDERED: HYDROCORTISONE SUCCINATE 100 MG/2 ML VIAL IV STA (18:52)
[2019-05-30] MEDS: NOREPINEPHRINE 32 MG in SODIUM CHLORIDE 0.9% 218 ML IV SCH (19:07)
--- NOTE | 2019-05-30 19:25 | P.HPIM ---
History of Present Illness H&P Date: 05/30/19 Chief Complaint: Acute hypoxic respiratory failure and encephalopathy Ms. Leach is a 43-year-old female with significant past medical history of intentional drug overdose, polysubstance abuse, history of ARDS requiring intubation and mechanical ventilation, emesis and pneumonia, depression brought in to the hospital by her parents. Patient's daughter who is 10 years older on her current pain as the patient was acting differently. Heart patient's noted that she was acting weird walking all around the house complaining of being thirsty and was very agitated. So she was brought into the ED for further evaluation. The patient has history of overdosing on amphetamines. In the emergency department she was given a dose of Ativan after which the patient became apneic and ended up being intubated. After that patient was hypotensive and bradycardic was placed on norepinephrine and sent to the ICU. In the ICU Dr. Young changed her pressors to dopamine and as the chest x-ray was showing bilateral interstitial infiltrates/edema she was started on Zosyn empirically. Review of systems could not be done as the patient is intubated and sedated. Review of Systems Patient is intubated and sedated Past Medical History Past Medical History: Pneumonia, Respiratory Disorder Additional Past Medical History / Comment(s): Polysubstane abuse, history of drug overdose, history of ARDS requiring intubation and mechanical ventilation, history of severe rhabdomyolysis and LUIS MIGUEL (recovered), history of MSSA pneumonia and sepsis, history of metabolic encephalopathy (recovered), hisotory of depression, suicide, obesity History of Any Multi-Drug Resistant Organisms: None Reported Date of last positivie culture/infection: None MDRO Source:: None Past Surgical History: No Surgical Hx Reported Additional Past Surgical History / Comment(s): breast biopsy (date unknown) Past Anesthesia/Blood Transfusion Reactions: No Reported Reaction Past Psychological History: Anxiety, Depression Smoking Status: Current every day smoker Past Alcohol Use History: None Reported, Unable to Obtain Additional Past Alcohol Use History / Comment(s): The patient was a smoker for at least 20 years 1 pack per day and quit in November 2018. She denies any IV drug use. She states she has abused Vicodin in the past. She is currently living with her daughter. There is a cat in the home. No recent travel. Past Drug Use History: Marijuana, Methamphetamine, None Reported - Past Family History Mother Family Medical History: No Reported History Medications and Allergies Home Medications Medication Instructions Recorded Confirmed Type Sertraline HCl [Zoloft] 200 mg PO [id number] 11/16/18 05/30/19 History busPIRone HCL 15 mg PO TID 11/16/18 05/30/19 History ALPRAZolam [Xanax] 0.5 mg PO DAILY PRN 12/16/18 05/30/19 History Atenolol [Tenormin] 50 mg PO DAILY 05/30/19 05/30/19 History hydrOXYzine HCL [Atarax] 25 mg PO HS 05/30/19 05/30/19 History Allergies Allergy/AdvReac Type Severity Reaction Status Date / Time Sulfa (Sulfonamide Allergy Itching Verified 05/30/19 07:21 Antibiotics) sulfamethoxazole Allergy Rash/Hives Verified 05/30/19 07:21 [From Bactrim] trimethoprim [From Bactrim] Allergy Rash/Hives Verified 05/30/19 07:21 Physical Exam Vitals: Vital Signs Temp Pulse Resp BP Pulse Ox 05/30/19 18:00 59 L 20 100 05/30/19 17:45 60 20 100 05/30/19 17:30 60 20 100 05/30/19 17:16 73 19 100 05/30/19 17:01 59 L 20 100 05/30/19 16:45 63 20 100 05/30/19 16:30 67 20 100 05/30/19 16:15 67 20 100 05/30/19 16:00 99.1 F 73 20 100 05/30/19 15:45 69 20 100 05/30/19 15:30 72 17 100 05/30/19 15:15 67 20 100 05/30/19 15:00 73 20 100 05/30/19 14:45 68 20 100 05/30/19 14:30 66 20 100 05/30/19 14:15 66 20 100 05/30/19 14:00 62 20 100 05/30/19 13:45 61 20 100 05/30/19 13:30 66 20 100 05/30/19 13:15 66 20 100 05/30/19 13:00 64 20 100 05/30/19 12:45 61 20 100 05/30/19 12:30 64 20 100 05/30/19 12:15 68 20 100 05/30/19 12:00 99.2 F 67 20 100 05/30/19 11:45 85 17 100 05/30/19 11:30 73 20 100 05/30/19 11:15 78 20 100 05/30/19 11:00 81 20 100 05/30/19 10:45 79 20 100 05/30/19 10:30 71 15 100 05/30/19 10:15 81 20 100 05/30/19 10:00 96 48 H 96 05/30/19 09:45 68 22 100 05/30/19 09:30 64 28 H 100 05/30/19 09:15 64 18 100 05/30/19 09:00 59 L 18 121/76 100 05/30/19 08:45 76 21 131/85 100 05/30/19 08:30 81 19 105/86 100 05/30/19 08:15 77 20 105/86 100 05/30/19 08:00 79 19 139/112 100 05/30/19 07:45 108/65 05/30/19 07:30 58 L 18 98/58 100 05/30/19 07:20 57 L 18 91/56 100 05/30/19 07:15 56 L 18 82/45 100 05/30/19 07:10 57 L 19 92/45 100 05/30/19 07:05 57 L 18 101/62 05/30/19 07:00 64 20 103/68 05/30/19 06:55 48 L 18 101/70 100 05/30/19 06:50 48 L 18 103/65 05/30/19 06:45 49 L 18 107/66 100 05/30/19 06:40 49 L 18 106/66 100 05/30/19 06:35 49 L 18 100/67 100 05/30/19 06:30 50 L 18 101/61 100 05/30/19 06:00 46 L 18 109/67 100 05/30/19 05:40 117/75 05/30/19 05:30 42 L 25 H 130/78 99 05/30/19 05:25 39 L 20 123/80 99 05/30/19 05:20 42 L 18 116/71 99 05/30/19 05:15 42 L 18 110/70 99 05/30/19 05:10 42 L 18 101/64 98 05/30/19 05:05 44 L 14 102/65 98 05/30/19 05:00 43 L 14 98/62 98 05/30/19 04:55 41 L 14 93/61 98 05/30/19 04:50 42 L 14 92/58 98 05/30/19 04:45 44 L 14 87/53 98 05/30/19 04:40 46 L 14 82/47 98 05/30/19 04:35 49 L 15 95/55 100 05/30/19 04:30 44 L 14 91/54 98 05/30/19 04:20 48 L 16 81/46 98 05/30/19 04:05 51 L 14 73/35 98 05/30/19 03:55 53 L 14 68/34 98 05/30/19 03:50 54 L 23 72/36 98 05/30/19 03:45 56 L 14 72/43 98 05/30/19 03:40 64 14 84/33 98 05/30/19 03:35 67 14 81/33 97 05/30/19 03:25 70 28 H 121/107 93 L Intake and Output 05/30/19 05/30/19 05/30/19 06:59 14:59 22:59 Intake Total 2.355 7924.477 7105.490 Output Total 10 2125 1250 Balance -7.645 -896.830 199.490 Intake: IV 875 375 0.9 2 125 875 375 Intake, IV Titration 2.355 479.331 0122.490 Amount DOPamine DRIP 800 mg In 151.501 10.514 Dextrose/Water 1 250ml. bag @ 2 MCG/KG/MIN 3.912 mls/hr IV .Q24H [facility] Rx#: [id number] Norepinephrine 8 mg In 2.355 Sodium Chloride 0.9% 250 ml @ 0.05 MCG/KG/MIN 10. 094 mls/hr IV .Q24H [facility] Rx#:[id number] Piperacillin-Tazobactam 3 100 25 .375 gm In Sodium Chloride 0.9% 100 ml @ 25 mls/hr IVPB Q8HR [facility] Rx# :[id number] Propofol 1,000 mg In 1.669 Empty Bag 1 bag @ Titrate IV .Q0M [facility] Rx#: [id number] Propofol 1,000 mg In 100 38.976 Empty Bag 1 bag @ Titrate IV .Q0M [facility] Rx#: [id number] Sodium Chloride 0.9% 1, 1000 000 ml @ 999 mls/hr IV . Q1H1M [facility] Rx#:[id number] Output: Urine 10 1415 1250 Other: Voiding Method Indwelling Catheter Indwelling Catheter Weight 104.326 kg 112 kg ABP, PAP, CO, CI - Last 8 Hours Arterial Blood Pressure 87/42 Arterial Blood Pressure 91/45 Arterial Blood Pressure 99/51 Arterial Blood Pressure 119/66 Arterial Blood Pressure 88/44 Arterial Blood Pressure 71/34 Arterial Blood Pressure 84/37 Arterial Blood Pressure 91/44 Arterial Blood Pressure 100/48 Arterial Blood Pressure 112/72 Arterial Blood Pressure 126/72 Arterial Blood Pressure 116/74 Arterial Blood Pressure 119/77 Arterial Blood Pressure 127/71 Arterial Blood Pressure 133/69 Arterial Blood Pressure 121/61 Arterial Blood Pressure 111/54 Arterial Blood Pressure 113/56 Arterial Blood Pressure 113/56 Arterial Blood Pressure 138/79 Arterial Blood Pressure 125/61 Arterial Blood Pressure 114/53 Arterial Blood Pressure 116/55 Arterial Blood Pressure 127/63 Arterial Blood Pressure 126/62 Arterial Blood Pressure 169/92 Arterial Blood Pressure 155/76 Arterial Blood Pressure 159/78 Arterial Blood Pressure 146/79 Arterial Blood Pressure 161/77 Arterial Blood Pressure 170/82 GEN. APPEARANCE: Patient is in the ICU intubated HEAD EXAM: Normocephalic. EYE EXAM: Pupils equal and round and reactive to light. No icterus. ENT EXAM: ET tube in place NECK EXAM: Neck is supple. No thyromegaly. No JVD. RESPIRATORY EXAM: Bilateral crackles at the lower lung bases. No wheezing CARDIOVASCULAR EXAM: regular rate, normal rhythm, normal heart sounds. No ad ditional sounds GI/ABDOMINAL EXAM: soft, normal bowel sounds. Nontender. No rigidity or guarding. EXTREMITIES EXAM: No pedal edema. NEUROLOGICAL EXAM: Patient is sedated on propofol. SKIN EXAM: no rash Results CBC & Chem 7: 05/30/19 03:25 05/30/19 03:25 Labs: Abnormal Lab Results - Last 24 Hours (Table) 05/30/19 05/30/19 05/30/19 Range/Units 03:25 03:25 03:25 WBC 21.9 H (3.8-10.6) k/uL RDW 16.3 H (11.5-15.5) % Neutrophils # 16.0 H (1.3-7.7) k/uL ABG pH (7.35-7.45) ABG pCO2 (35-45) mmHg ABG pO2 (83-108) mmHg ABG HCO3 (21-25) mmol/L ABG O2 Saturation (94-97) % Chloride 113 H (98-107) mmol/L Carbon Dioxide 19 L (22-30) mmol/L BUN 18 H (7-17) mg/dL Creatinine 2.18 H (0.52-1.04) mg/dL Glucose 103 H (74-99) mg/dL Plasma Lactic Acid Elie 3.5 H* (0.7-2.0) mmol/L Urine Appearance (Clear) Urine Protein (Negative) Urine Glucose (UA) (Negative) Urine Blood (Negative) Urine RBC (0-5) /hpf Urine WBC (0-5) /hpf Urine WBC Clumps (None) /hpf Ur Squamous Epith Cells (0-4) /hpf Urine Bacteria (None) /hpf Hyaline Casts (0-2) /lpf Urine Mucus (None) /hpf U Marijuana (THC) Screen (NotDetected) Crossmatch 05/30/19 05/30/19 05/30/19 Range/Units 03:25 04:36 04:47 WBC (3.8-10.6) k/uL RDW (11.5-15.5) % Neutrophils # (1.3-7.7) k/uL ABG pH 7.24 L (7.35-7.45) ABG pCO2 47 H (35-45) mmHg ABG pO2 148 H (83-108) mmHg ABG HCO3 20 L (21-25) mmol/L ABG O2 Saturation 98.9 H (94-97) % Chloride (98-107) mmol/L Carbon Dioxide (22-30) mmol/L BUN (7-17) mg/dL Creatinine (0.52-1.04) mg/dL Glucose (74-99) mg/dL Plasma Lactic Acid Elie (0.7-2.0) mmol/L Urine Appearance Cloudy H (Clear) Urine Protein 2+ H (Negative) Urine Glucose (UA) 1+ H (Negative) Urine Blood Moderate H (Negative) Urine RBC 128 H (0-5) /hpf Urine WBC 21 H (0-5) /hpf Urine WBC Clumps Moderate H (None) /hpf Ur Squamous Epith Cells 20 H (0-4) /hpf Urine Bacteria Rare H (None) /hpf Hyaline Casts 314 H (0-2) /lpf Urine Mucus Many H (None) /hpf U Marijuana (THC) Screen Detected H (NotDetected) Crossmatch See Detail 05/30/19 Range/Units 09:15 WBC (3.8-10.6) k/uL RDW (11.5-15.5) % Neutrophils # (1.3-7.7) k/uL ABG pH 7.23 L (7.35-7.45) ABG pCO2 (35-45) mmHg ABG pO2 298 H (83-108) mmHg ABG HCO3 19 L (21-25) mmol/L ABG O2 Saturation 100.0 H (94-97) % Chloride (98-107) mmol/L Carbon Dioxide (22-30) mmol/L BUN (7-17) mg/dL Creatinine (0.52-1.04) mg/dL Glucose (74-99) mg/dL Plasma Lactic Acid Elie (0.7-2.0) mmol/L Urine Appearance (Clear) Urine Protein (Negative) Urine Glucose (UA) (Negative) Urine Blood (Negative) Urine RBC (0-5) /hpf Urine WBC (0-5) /hpf Urine WBC Clumps (None) /hpf Ur Squamous Epith Cells (0-4) /hpf Urine Bacteria (None) /hpf Hyaline Casts (0-2) /lpf Urine Mucus (None) /hpf U Marijuana (THC) Screen (NotDetected) Crossmatch Microbiology - Last 24 Hours (Table) 05/30/19 06:10 Sputum Culture - Preliminary Sputum Thrombosis Risk Factor Assmnt - Choose All That Apply Each Factor Represents 1 point: Age 41-60 years Other Risk Factors: No Thrombosis Risk Factor Assessment Total Risk Factor Score: 1 Thrombosis Risk Factor Assessment Level: Low Risk Assessment and Plan Assessment: ASSESSMENT Acute hypoxic respiratory failure Acute metabolic encephalopathy Possible drug overdose Bilateral pulmonary infiltrates Acute kidney injury Bradycardia History of polysubstance abuse History of depression History of MSSA skin infection PLAN: Patient is intubated and on a ventilator. She is currently getting 5 mics of dopamine and her mean arterial pressure is around 60-65. Continue with Zosyn for possible UTI/bilateral pulmonary infiltrates. Continue with current sup portive measures. Further recommendations to follow depending on the progress of the patient.
[2019-05-30] MEDS: CHLORHEXIDINE GLUCONATE 15 ML CUP MUCOUS MEM SCH (20:44)
[2019-05-30 23:51] LABS: Glucose,Whole Blood 146 mg/dL (75-99)
[2019-05-31] MEDS: PROPOFOL 1,000 MG in EMPTY BAG 1 BAG IV SCH ×11 (00:24→23:33)
[2019-05-31] MEDS: DOPamine DRIP 800 MG in DEXTROSE/WATER 1 250ML.BAG IV SCH (02:17)
[2019-05-31] MEDS ORDERED: ATROPINE SULFATE 0.1 MG/ML 10ML SYRINGE ONE (02:55)
[2019-05-31] MEDS: SODIUM CHLORIDE 0.9% 1,000 ML IV SCH ×3 (03:15→21:20)
[2019-05-31 04:51] LABS: Anisocytosis Slight; Basophils % (A) 0 %; Eosinophils % (A) 0 %; HCT 34.6 % (34.0-46.0); HGB 11.5 gm/dL (11.4-16.0); Lymphocytes # (A) 3.1 k/uL (1.0-4.8); Lymphocytes % (A) 32 %; MCH 28.3 pg (25.0-35.0); MCHC 33.2 g/dL (31.0-37.0); Monocytes # (A) 0.4 k/uL (0-1.0); Monocytes % (A) 4 %; Neutrophils # (A) 6.1 k/uL (1.3-7.7); Neutrophils % (A) 63 %; Platelet Count 254 k/uL (150-450); RBC 4.06 m/uL (3.80-5.40); RDW 16.7 % (11.5-15.5); WBC 9.7 k/uL (3.8-10.6)
[2019-05-31 05:00] LABS: African American GFR (CKD) >90 (>60 ml/min/1.73 sqM); Anion Gap 5 mmol/L; Blood Urea Nitrogen 11 mg/dL (7-17); Calcium 7.8 mg/dL (8.4-10.2); Carbon Dioxide 21 mmol/L (22-30); Chloride 120 mmol/L (98-107); Glucose 91 mg/dL (74-99); Non-African American GFR(CKD) 85 (>60 ml/min/1.73 sqM); Sodium 146 mmol/L (137-145)
[2019-05-31 05:45] LABS: Potassium 3.6 mmol/L (3.5-5.1)
[2019-05-31] MEDS ORDERED: Potassium Replacement Protocol 1 EACH MISC MISCELLANE PRN (05:47)
[2019-05-31 05:54] LABS: Glucose,Whole Blood 74 mg/dL (75-99)
[2019-05-31] MEDS: POTASSIUM CHLORIDE 10 MEQ in WATER FOR INJECTION 1 100ML.BAG IVPB SCH ×2 (06:00→07:07)
--- NOTE | 2019-05-31 06:50 | XR ---
EXAMINATION TYPE: XR chest 1V portable DATE OF EXAM: 05/31/2019 HISTORY: Tube placement. REFERENCE: Previous study dated 05/30/2019. FINDINGS: The patient is ET tube and NG tube and right internal jugular catheter remain in place, unc hanged in appearance. The heart is enlarged. Pulmonary vascular congestion is improved somewhat. There continues to be some left basilar airspace disease. I suspect small, bilateral effusions. IMPRESSION: IMPROVING CHANGES OF PULMONARY EDEMA.
[2019-05-31 07:44] LABS: ABG Base Excess -3.5 mmol/L; ABG HCO3 22 mmol/L (21-25); ABG Oxygen Saturation 97.4 % (94-97); ABG PCO2 37 mmHg (35-45); ABG PH 7.38 (7.35-7.45); ABG PO2 89 mmHg (83-108); ABG TCO2 23 mmol/L (19-24); Allen Test Performed? Yes
[2019-05-31] MEDS: CHLORHEXIDINE GLUCONATE 15 ML CUP MUCOUS MEM SCH ×2 (08:39→21:05)
[2019-05-31] MEDS: PIPERACILLIN-TAZOBACTAM 3.375 GM in SODIUM CHLORIDE 0.9% 100 ML IVPB SCH ×3 (08:39→23:33)
[2019-05-31] MEDS: FUROSEMIDE 10 MG/ML 2 ML VIAL IV SCH ×2 (08:39→21:06)
[2019-05-31] MEDS: HEPARIN SODIUM,PORCINE 5,000 UNIT/ML 1 ML VIAL SQ SCH ×3 (08:39→23:34)
[2019-05-31] MEDS: PANTOPRAZOLE 40 MG/10 ML VIAL IV SCH (08:39)
--- NOTE | 2019-05-31 11:48 | P.PN ---
Subjective Progress Note Date: 05/31/19 Principal diagnosis: Acute hypoxic respiratory failure requiring intubation and mechanical ventilation. This is a 43-year-old female quite familiar to my service from previous adm issions secondary to multiple drug overdoses, and previous episodes of respiratory failure complicated by ARDS, and at one point required prolonged course of mechanical ventilation and followed by tracheostomy and PEG tube placement. Patient was eventually D cannulated, and the last time she was seen in our institution was back on 12/16/2018, she was seen mostly for diffuse bilateral pneumonia possibly aspiration type of pneumonia. And the patient had prior to this one episode of respiratory failure following a suicidal attempt with methamphetamine and marijuana. Patient is known to have history of polysubstance abuse, multiple suicide attempts in the past, history of ARDS, history of rhabdomyolysis, history of acute kidney injury, history of MRSA pneumonia, history of depression, obesity. Last night the patient presented to the ER mostly because her 10-year-old daughter at home was concerned about her behavior. The daughter called her grandparents, and the patient was noted to be agitated, irrational, walking around the house, and she continued to complain of being thirsty. She was repeatedly opening cupboards and the refrigerator. But not taking anything. She was not doing anything productive or that made much sense. Her behavior was concerning to the family, hence she was brought into the ER, and she was extremely agitated upon arrival. She was yelling and screaming. The initial impression that the patient may have overdosed on amphetamine, and upon arrival she was given Ativan by the ER physician. Shortly after Ativan was given, the patient was apneic and was not breathing unless stimulated. Patient ended up being intubated, and after intubation the patient developed hypotension and profound bradycardia. Initially placed on norepinephrine. However when I was notified about the patient, I recommended switching norepinephrine to dopamine. Her heart rate responded well to dopamine, the pressure stabilized nicely, patient was initially on as high as 20 mcg/kg/m of dopamine, however I was able to cut it down to 10 mcg/kg/m, and I plan to cut it down to further to 5 g or 2.5 mcg/kg/m. Her initial chest x-ray which was done post intubation showed the endotracheal tube was in the right mainstem bronchus, patient developed hazy opacities throughout the whole left lung, however the tube was adjusted, and better aeration was noted to left lung shortly after. However repeat chest x-ray in the ICU showed bilateral interstitial infiltrates/edema. Patient had minimal IV access upon presentation to the ICU, and her dopamine was running via a peripheral line. Hence I placed a right internal jugular central line, and switched dopamine to the central line. I have also placed a right radial arterial line for hemodynamic monitoring. ABG done shortly after showed a pO2 of 298 pCO2 of 45 pH of 7.23, hence the patient was placed on assist control rate of 20 tidal volume of 450 FiO2 was cut down to 50%, and she was given an amp of bicarb. Patient was also placed empirically on antibiotics. She had abnormal urinalysis, and there is a possibility that the patient may have aspirated hence his Zosyn was utilized. Drug screen came back basically negative, she only tested positive for marijuana. Patient has been on amlodipine at home, and it is not clear whether she may have overdosed on calcium channel blockers. Reevaluated today on 05/31/2019, patient remains in the ICU, intubated, mechanically ventilated. Her ventilator settings are assist control rate of 20 tidal volume of 450 FiO2 is 50% and PEEP is at 5. Remains on dopamine at 2.5 mcg/kg/m. Remains on propofol at 60 mcg/kg/m. Patient is off norepinephrine. She had intermittent episodes of profound bradycardia last night, did not require any atropine, but her dopamine was increased to 5 mcg/kg/m. Presently in sinus rhythm, calm on propofol, however as soon as I lowered the dose of propofol, patient became extremely agitated, restless in bed, and would not calm down to perform any form of weaning. I was planning to place the patient on pressure support of 8 and CPAP, however considering her extreme agitation I had to place her back on propofol and will hold on further weaning trials for today. Chest x-ray showed significant improvement in her pulmonary edema. She had minimal left basilar atelectasis and small effusions. ABG this morning showed a pO2 of 89 pCO2 of 37 pH of 7.38. CBC is relatively normal. Sodium is 146 chloride is 120 BUN is 11 creatinine 0.84 hence significant improvement was noted in her renal profile and acute kidney injury on presentation. Objective - Vital Signs Vital signs: Vital Signs Temp 98.1 F 05/31/19 08:00 Pulse 89 05/31/19 11:00 Resp 20 05/31/19 11:00 BP 110/71 05/31/19 11:00 Pulse Ox 91 L 05/31/19 11:00 Intake & Output 05/30/19 05/31/19 05/31/19 18:59 06:59 18:59 Intake Total 3827.660 2116.157 1028.335 Output Total 3525 2580 1165 Balance 302.660 -463.843 -136.665 Weight 112 kg 124.8 kg Intake: IV 1375 1650 825 0.9 2 125 1375 1450 625 Piperacillin-Tazobactam 3 100 100 .375 gm In Sodium Chloride 0.9% 100 ml @ 25 mls/hr IVPB Q8HR [facility] Rx# :[id number] Potassium Chloride 10 meq 100 100 In Water For Injection 1 100ml.bag @ 100 mls/hr IVPB Q1H [facility] Rx#: [id number] Intake, IV Titration 2452.660 466.157 203.335 Amount DOPamine DRIP 800 mg In 162.015 22.985 Dextrose/Water 1 250ml. bag @ 2 MCG/KG/MIN 3.912 mls/hr IV .Q24H [facility] Rx#: [id number] DOPamine DRIP 800 mg In 21.087 Dextrose/Water 1 250ml. bag @ 2 MCG/KG/MIN 4.2 mls/hr IV .Q24H [facility] Rx#: [id number] Norepinephrine 32 mg In 23.634 Sodium Chloride 0.9% 218 ml @ 0.05 MCG/KG/MIN 2. 625 mls/hr IV .Q24H [facility] Rx#:[id number] Piperacillin-Tazobactam 3 150 25 .375 gm In Sodium Chloride 0.9% 100 ml @ 25 mls/hr IVPB Q8HR [facility] Rx# :[id number] Propofol 1,000 mg In 1.669 Empty Bag 1 bag @ Titrate IV .Q0M [facility] Rx#: [id number] Propofol 1,000 mg In 138.976 373.451 203.335 Empty Bag 1 bag @ Titrate IV .Q0M [facility] Rx#: [id number] Sodium Chloride 0.9% 1, 2000 000 ml @ 999 mls/hr IV . Q1H1M [facility] Rx#:[id number] Output: Gastric Drainage 555 Urine 3525 2025 1165 Other: Voiding Method Indwelling Catheter Indwelling Catheter ABP, PAP, CO, CI - Last Documented Arterial Blood Pressure 78/40 - Exam Physical Exam: Revealed a 43-year-old female on mechanical ventilation, obese, sedated, on propofol, in no distress. Noted to be cooperative, awake on a lower dose of propofol, however could not get her off the propofol completely because of extreme agitation noted. Head: Atraumatic, normocephalic. HEENT:[Neck is supple.] [No neck masses.] [No thyromegaly.] [No JVD.] PERRLA, EOMI, no icterus, dry mucous membranes noted. Endotracheal tube and orogastric tube are intact Chest: [Symmetrical chest expansion. Minimal fine crackles at the bases, no rhonchi and no wheezes.] Cardiac Exam: [Normal S1 and S2, no S3 gallop, no murmur.] Abdomen: [Obese, Soft, nontender, no megaly, no rebound, no guarding, normal bowel sounds.] Extremities: [No clubbing, no edema, no cyanosis.] Neurological Exam: Pupils are equally reactive to light, patient is arousable, followed simple instructions on lower dose of propofol at 30 mcg/kg/m, however as the dose became lower patient became extremely agitated and restless, had to be placed back on propofol. Psychiatric: Agitated and restless when propofol was discontinued briefly. Skin: Evidence of tracheostomy scar noted at the base of her neck anteriorly. Well-healed, and clean. - Labs CBC & Chem 7: 05/31/19 04:45 05/31/19 04:45 Labs: Abnormal Lab Results - Last 24 Hours (Table) 05/30/19 05/30/19 05/31/19 Range/Units 03:25 23:40 04:45 RDW 16.7 H (11.5-15.5) % ABG O2 Saturation (94-97) % Sodium (137-145) mmol/L Chloride (98-107) mmol/L Carbon Dioxide (22-30) mmol/L POC Glucose (mg/dL) 146 H (75-99) mg/dL Calcium (8.4-10.2) mg/dL Crossmatch See Detail 05/31/19 05/31/19 05/31/19 Range/Units 04:45 05:42 07:37 RDW (11.5-15.5) % ABG O2 Saturation 97.4 H (94-97) % Sodium 146 H (137-145) mmol/L Chloride 120 H (98-107) mmol/L Carbon Dioxide 21 L (22-30) mmol/L POC Glucose (mg/dL) 74 L (75-99) mg/dL Calcium 7.8 L (8.4-10.2) mg/dL Crossmatch Microbiology - Last 24 Hours (Table) 05/30/19 06:10 Gram Stain - Preliminary Sputum Sputum Culture - Preliminary 05/30/19 04:36 Urine Culture - Preliminary Urine,Voided Assessment and Plan Assessment: Impression: 1 acute hypoxic respiratory failure secondary to multiple drugs overdose, patient could have overdosed on her calcium channel blockers, possibly overdosed on Atarax. 2 diffuse pulmonary infiltrates, suspect aspiration pneumonia, although the possibility of interstitial edema is not entirely ruled out. [facility] to be less likely be This was noted on presentation, however dramatic improvement noted on the chest x-ray today, hence I believe the findings may have been related to the fact that the endotracheal tube was in the right mainstem bronchus initially when she was intubated in the ER. 3 acute kidney injury most likely secondary to hypotension on her initial presentation to the ER. 4 profound bradycardia, responding to dopamine infusion, we'll continue dopamine infusion 2.5 mcg/kg/m. Seems to be controlling her profound sinus bradycardia. 5 possible urinary tract infection, however strongly doubt sepsis. The presentation was not a presentation of sepsis. Patient will be empirically on antibiotics anyway. 6 history of polysubstance abuse, multiple admissions with respiratory failure secondary to substance abuse and drug overdose. 7 history of depression 8 history of MRSA skin infection 9 acute metabolic and respiratory acidosis, improving with ventilatory measures and with sodium bicarb which was given earlier. Recommendation: continue ventilatory support. Patient is not quite ready for weaning and extubation at this point. Consider enteral feeding/Nutritional support. GI and DVT prophylaxis. Continue dopamine Continue antibiotics/empirically. Bronchodilators. Continue propofol for the time being. Check Urine and blood cultures. We'll continue to follow closely. Patient is definitely critically ill. And she will remain in the ICU. re address weaning trial and possibly extubation in the next 24 hours. Critical care time is 40 minutes Time with Patient: Greater than 30
[2019-05-31 11:58] LABS: Glucose,Whole Blood 88 mg/dL (75-99)
--- NOTE | 2019-05-31 12:37 | ECHOF ---
Referral Reason:cardiac arrythmia MEASUREMENTS -------- HEIGHT: 170.2 cm WEIGHT: 111.6 kg BP: IVSd: 1.2 cm (0.6 - 1.1) LVIDd: 3.7 cm (3.9 - 5.3) LVPWd: 1.2 cm (0.6 - 1.1) EDV(Teich): 56 ml IVSs: 1.9 cm LVIDs: 2.1 cm LVPWs: 1.6 cm %IVS Thck: 62 % ESV(Teich): 14 ml EF(Teich): 75 % %FS: 43 % SV(Teich): 42 ml RVIDd: 1.9 cm (< 3.3) IVC: 15.20 mm LALs A4C: 6.1 cm LAAs A4C: 18.3 cm LAESV A-L A4C: 47 ml LAESV MOD A4C: 42 ml LALs A2C: 5.0 cm LAAs A2C: 15.9 cm LAESV A-L A2C: 43 ml LAESV MOD A2C: 42 ml LAESV(A-L): 50 ml LAESV Index (A-L): 22.62 ml/m Ao Diam: 3.3 cm (2.0 - 3.7) LA Diam: 3.0 cm (2.7 - 3.8) AV Cusp: 1.9 cm (1.5 - 2.6) EPSS: 0.9 cm MV E [place]: 0.71 m/s MV DecT: 196 ms MV Dec [place]: 3.6 m/s MV A [place]: 0.70 m/s MV E/A Ratio: 1.02 MV PHT: 57 ms MR Vmax: 1.34 m/s MR maxP.13 mmHg AV Vmax: 1.25 m/s AV maxP.25 mmHg TR Vmax: 1.46 m/s TR maxP.56 mmHg RAP: 5.00 mmHg RVSP: 13.56 mmHg MV EF SLOPE: 123.45 mm/s (70 - 150) MV EXCURSION: 12.49 mm (> 18.000) FINDINGS -------- Sinus rhythm. This was a technically good study. The left ventricular size is normal. There is mild concentric left ventricular hypertrophy. Overa ll left ventricular systolic function is normal with, an EF between 55 - 60 %. The diastolic fillin g pattern is normal for the age of the patient 9.02. The right ventricle is normal in size. The left atrial size is normal. Normal LA size by volume 22+/-6 ml/m2. The right atrial size is normal. The aortic valve is trileaflet and appears structurally normal. The mitral valve is normal. There is trace mitral regurgitation. The tricuspid valve appears structurally normal. Trace tricuspid regurgitation present. Right milan tricular systolic pressure is normal at < 35 mmHg. There is no pulmonic regurgitation present. The aortic root size is normal. Normal inferior vena cava with normal inspiratory collapse consistent with estimated right atrial pre ssure of 5 mmHg. There is no pericardial effusion. CONCLUSIONS -------- 1. Sinus rhythm. 2. This was a technically good study. 3. The left ventricular size is normal. 4. There is mild concentric left ventricular hypertrophy. 5. Overall left ventricular systolic function is normal with, an EF between 55 - 60 %. 6. The diastolic filling pattern is normal for the age of the patient 9.02 7. The right ventricle is normal in size. 8. The left atrial size is normal. 9. Normal LA size by volume 22+/-6 ml/m2. 10. The right atrial size is normal. 11. The aortic valve is trileaflet and appears structurally normal. 12. The mitral valve is normal. 13. There is trace mitral regurgitation. 14. The tricuspid valve appears structurally normal. 15. Trace tricuspid regurgitation present. 16. Right ventricular systolic pressure is normal at < 35 mmHg. 17. There is no pulmonic regurgitation present. 18. The aortic root size is normal. 19. Normal inferior vena cava with normal inspiratory collapse consistent with estimated right atrial pressure of 5 mmHg. 20. There is no pericardial effusion. HANDICRAFTS TEACHER: Britt Roberto RDCS
[2019-05-31] MEDS: fentaNYL (PF) 1,000 MCG in SODIUM CHLORIDE 0.9% 80 ML IV SCH (18:04)
[2019-05-31 18:05] LABS: Glucose,Whole Blood 92 mg/dL (75-99)
[2019-05-31] MEDS: NOREPINEPHRINE 32 MG in SODIUM CHLORIDE 0.9% 218 ML IV SCH (18:48)
--- NOTE | 2019-05-31 22:26 | P.PN ---
Subjective Progress Note Date: 05/31/19 Principal diagnosis: Acute hypoxic respiratory failure and encephalopathy Ms. Leach is a 43-year-old female with significant past medical history of intentional drug overdose, polysubstance abuse, history of ARDS requiring intubation and mechanical ventilation, emesis and pneumonia, depression brought in to the hospital by her parents. Patient's daughter who is 10 years older on her current pain as the patient was acting differently. Heart patient's noted that she was acting weird walking all around the house complaining of being thirsty and was very agitated. So she was brought into the ED for further evaluation. The patient has history of overdosing on amphetamines. In the emergency department she was given a dose of Ativan after which the patient became apneic and ended up being intubated. After that patient was hypotensive and bradycardic was placed on norepinephrine and sent to the ICU. In the ICU Dr. Young changed her pressors to dopamine and as the chest x-ray was showing bilateral interstitial infiltrates/edema she was started on Zosyn empirically. On 05/31/2019 -patient is still in the ICU. She is intubated on a ventilator. Patient is sedated with propofol at maximum dose but still patient is opening her eyes and able to answer a few questions. As per nursing staff report earlier this morning when the patient was tried to wean off propofol she became extremely agitated. So she was back on propofol. Patient's labs from this morning showed white count of 9.7, platelets 254, sodium 146, potassium 3.6, creatinine 0.84. Review of systems could not be done as the patient is intubated and sedated. Active Medications Chlorhexidine Gluconate (Peridex) 15 ml MUCOUS MEM BID COUNTS INCLUDE 234 BEDS AT THE [facility] Last Admin: 05/31/19 21:05 Dose: 15 ml Documented by: Furosemide (Lasix) 20 mg IV Q12HR [facility] Last Admin: 05/31/19 21:06 Dose: 20 mg Documented by: Heparin Sodium (Porcine) (Heparin) 5,000 unit SQ Q8HR COUNTS INCLUDE 234 BEDS AT THE [facility] Last Admin: 05/31/19 15:22 Dose: 5,000 unit Documented by: Sodium Chloride (Saline 0.9%) 1,000 mls @ 125 mls/hr IV .Q8H COUNTS INCLUDE 234 BEDS AT THE [facility] Last Admin: 05/31/19 21:20 Dose: 125 mls/hr Documented by: Piperacillin Sod/Tazobactam (Sod 3.375 gm/ Sodium Chloride) 100 mls @ 25 mls/hr IVPB Q8HR [facility] Last Admin: 05/31/19 15:23 Dose: 25 mls/hr Documented by: Propofol 1,000 mg/ IV Solution 100 mls @ 0 mls/hr IV .Q0M [facility]; Protocol Last Admin: 05/31/19 20:35 Dose: 60 mcg/kg/min, 44.928 mls/hr Documented by: Norepinephrine Bitartrate 32 (mg/ Sodium Chloride) 250 mls @ 2.625 mls/hr IV .Q24H [facility]; Protocol Last Admin: 05/31/19 18:48 Dose: Not Given Documented by: Dopamine HCl/Dextrose 800 mg/ (IV Solution) 250 mls @ 4.2 mls/hr IV .Q24H [facility]; Protocol Last Titration: 05/31/19 04:50 Dose: 2.5 mcg/kg/min, 5.25 mls/hr Documented by: Fentanyl Citrate 1,000 mcg/ (Sodium Chloride) 100 mls @ 12.48 mls/hr IV .Q8H1M [facility]; Protocol Last Titration: 05/31/19 20:35 Dose: 0.7 mcg/kg/hr, 8.736 mls/hr Documented by: Miscellaneous Information (Potassium Per Protocol) 1 each MISCELLANE DAILY PRN; Protocol PRN Reason: Per Protocol Naloxone HCl (Narcan) 0.2 mg IV Q2M PRN PRN Reason: Opioid Reversal Pantoprazole Sodium (Protonix) 40 mg IV DAILY COUNTS INCLUDE 234 BEDS AT THE [facility] Last Admin: 05/31/19 08:39 Dose: 40 mg Documented by: Objective - Vital Signs Vital signs: Vital Signs Temp 99.9 F H 05/31/19 12:00 Pulse 79 05/31/19 16:00 Resp 16 05/31/19 16:00 BP 115/77 05/31/19 16:00 Pulse Ox 97 05/31/19 16:00 Intake & Output 05/30/19 05/31/19 05/31/19 18:59 06:59 18:59 Intake Total 3827.660 2116.157 1983.070 Output Total 3525 2580 1510 Balance 302.660 -463.843 473.070 Weight 112 kg 124.8 kg 124.8 kg Intake: IV 1375 1650 1550 0.9 2 125 1375 1450 1250 Piperacillin-Tazobactam 3 100 200 .375 gm In Sodium Chloride 0.9% 100 ml @ 25 mls/hr IVPB Q8HR COUNTS INCLUDE 234 BEDS AT THE [facility] Rx# :[id number] Potassium Chloride 10 meq 100 100 In Water For Injection 1 100ml.bag @ 100 mls/hr IVPB Q1H COUNTS INCLUDE 234 BEDS AT THE [facility] Rx#: [id number] Intake, IV Titration 2452.660 466.157 413.070 Amount DOPamine DRIP 800 mg In 162.015 22.985 Dextrose/Water 1 250ml. bag @ 2 MCG/KG/MIN 3.912 mls/hr IV .Q24H [facility] Rx#: [id number] DOPamine DRIP 800 mg In 21.087 Dextrose/Water 1 250ml. bag @ 2 MCG/KG/MIN 4.2 mls/hr IV .Q24H COUNTS INCLUDE 234 BEDS AT THE [facility] Rx#: [id number] Norepinephrine 32 mg In 23.634 Sodium Chloride 0.9% 218 ml @ 0.05 MCG/KG/MIN 2. 625 mls/hr IV .Q24H COUNTS INCLUDE 234 BEDS AT THE [facility] Rx#:[id number] Piperacillin-Tazobactam 3 150 25 .375 gm In Sodium Chloride 0.9% 100 ml @ 25 mls/hr IVPB Q8HR COUNTS INCLUDE 234 BEDS AT THE [facility] Rx# :[id number] Propofol 1,000 mg In 1.669 Empty Bag 1 bag @ Titrate IV .Q0M [facility] Rx#: [id number] Propofol 1,000 mg In 138.976 373.451 413.070 Empty Bag 1 bag @ Titrate IV .Q0M COUNTS INCLUDE 234 BEDS AT THE [facility] Rx#: [id number] Sodium Chloride 0.9% 1, 2000 000 ml @ 999 mls/hr IV . Q1H1M [facility] Rx#:[id number] Tube Feeding 20 Output: Gastric Drainage 555 Urine 3525 2025 1510 Other: Voiding Method Indwelling Catheter Indwelling Catheter Indwelling Catheter ABP, PAP, CO, CI - Last Documented Arterial Blood Pressure 101/69 - Exam GEN. APPEARANCE: Patient is in the ICU intubated HEAD EXAM: Normocephalic. EYE EXAM: Pupils equal and round and reactive to light. No icterus. ENT EXAM: ET tube in place NECK EXAM: Neck is supple. No thyromegaly. No JVD. RESPIRATORY EXAM: Bilateral crackles at the lower lung bases. No wheezing CARDIOVASCULAR EXAM: regular rate, normal rhythm, normal heart sounds. No additional sounds GI/ABDOMINAL EXAM: soft, normal bowel sounds. Nontender. No rigidity or guarding. EXTREMITIES EXAM: No pedal edema. NEUROLOGICAL EXAM: Patient is sedated on propofol. But was opening her eyes on calling her name. SKIN EXAM: no rash - Labs CBC & Chem 7: 05/31/19 04:45 05/31/19 04:45 Labs: Abnormal Lab Results - Last 24 Hours (Table) 05/30/19 05/31/19 05/31/19 Range/Units 23:40 04:45 04:45 RDW 16.7 H (11.5-15.5) % ABG O2 Saturation (94-97) % Sodium 146 H (137-145) mmol/L Chloride 120 H (98-107) mmol/L Carbon Dioxide 21 L (22-30) mmol/L POC Glucose (mg/dL) 146 H (75-99) mg/dL Calcium 7.8 L (8.4-10.2) mg/dL 05/31/19 05/31/19 Range/Units 05:42 07:37 RDW (11.5-15.5) % ABG O2 Saturation 97.4 H (94-97) % Sodium (137-145) mmol/L Chloride (98-107) mmol/L Carbon Dioxide (22-30) mmol/L POC Glucose (mg/dL) 74 L (75-99) mg/dL Calcium (8.4-10.2) mg/dL Microbiology - Last 24 Hours (Table) 05/30/19 06:10 Gram Stain - Preliminary Sputum Sputum Culture - Preliminary 05/30/19 04:36 Urine Culture - Preliminary Urine,Voided Assessment and Plan Assessment: ASSESSMENT Acute hypoxic respiratory failure Acute metabolic encephalopathy Possible drug overdose Bilateral pulmonary infiltrates Acute kidney injury Bradycardia History of polysubstance abuse History of depression History of MSSA skin infection PLAN: She is still in the ICU - intubated and on a ventilator. She is currently getting 5 mics of dopamine and her mean arterial pressure is around 60-65. Continue with Zosyn for possible UTI/bilateral pulmonary infiltrates. Continue with current supportive measures. Further recommendations to follow depending on the progress of the patient.
[2019-06-01 00:22] LABS: Glucose,Whole Blood 92 mg/dL (75-99)
[2019-06-01] MEDS: fentaNYL (PF) 1,000 MCG in SODIUM CHLORIDE 0.9% 80 ML IV SCH ×2 (00:57→04:11)
[2019-06-01] MEDS: PROPOFOL 1,000 MG in EMPTY BAG 1 BAG IV SCH ×4 (01:16→07:49)
[2019-06-01 04:17] LABS: ABG Base Excess -0.8 mmol/L; ABG HCO3 23 mmol/L (21-25); ABG Oxygen Saturation 99.3 % (94-97); ABG PCO2 34 mmHg (35-45); ABG PH 7.45 (7.35-7.45); ABG PO2 116 mmHg (83-108); ABG TCO2 24 mmol/L (19-24); Allen Test Performed? Yes
[2019-06-01 04:24] LABS: Anisocytosis Slight; Basophils % (A) 0 %; Eosinophils # (A) 0.2 k/uL (0-0.7); Eosinophils % (A) 3 %; HCT 31.9 % (34.0-46.0); HGB 10.5 gm/dL (11.4-16.0); Lymphocytes # (A) 3.3 k/uL (1.0-4.8); Lymphocytes % (A) 43 %; MCH 27.7 pg (25.0-35.0); MCHC 32.8 g/dL (31.0-37.0); MCV 84.3 fL (80.0-100.0); Mean Platelet Volume 7.2; Monocytes # (A) 0.3 k/uL (0-1.0); Monocytes % (A) 4 %; Neutrophils # (A) 3.7 k/uL (1.3-7.7); Neutrophils % (A) 48 %; Platelet Count 216 k/uL (150-450); RBC 3.79 m/uL (3.80-5.40); RDW 16.6 % (11.5-15.5); WBC 7.6 k/uL (3.8-10.6)
[2019-06-01 04:36] LABS: African American GFR (CKD) >90 (>60 ml/min/1.73 sqM); Anion Gap 4 mmol/L; Blood Urea Nitrogen 7 mg/dL (7-17); Carbon Dioxide 23 mmol/L (22-30); Chloride 117 mmol/L (98-107); Glucose 91 mg/dL (74-99); Non-African American GFR(CKD) >90 (>60 ml/min/1.73 sqM); Potassium 2.9 mmol/L (3.5-5.1); Sodium 144 mmol/L (137-145)
[2019-06-01] MEDS: POTASSIUM BICARBONATE/CIT AC 20 MEQ TABLET.EFF NG-TUBE SCH ×3 (05:26→08:51)
[2019-06-01 06:24] LABS: Glucose,Whole Blood 98 mg/dL (75-99)
[2019-06-01] MEDS: SODIUM CHLORIDE 0.9% 1,000 ML IV SCH ×2 (06:28→13:37)
--- NOTE | 2019-06-01 08:23 | XR ---
EXAMINATION TYPE: XR chest 1V portable DATE OF EXAM: 06/01/2019 COMPARISON: 05/31/2019 INDICATION: ICU management, tube placement, difficulty breathing TECHNIQUE: Single frontal view of the chest is obtained. FINDINGS: The heart size is normal. The pulmonary vasculature is normal. Mild bibasilar infiltrates are present. Degree of inspiration is limited. Endotracheal tube is present with the tip above the shaw. Nasogastric tube transverses the thorax t ip in left upper quadrant of the abdomen. Right central venous catheter is present with tip in the ri ght atrium. IMPRESSION: 1. Mild bibasilar atelectasis. 2. Poor inspiration on this exam. 3. Multiple lines and catheters discussed above.
[2019-06-01] MEDS: DOPamine DRIP 800 MG in DEXTROSE/WATER 1 250ML.BAG IV SCH (08:42)
[2019-06-01] MEDS: HEPARIN SODIUM,PORCINE 5,000 UNIT/ML 1 ML VIAL SQ SCH ×2 (08:51→16:23)
[2019-06-01] MEDS: PANTOPRAZOLE 40 MG/10 ML VIAL IV SCH (08:51)
[2019-06-01] MEDS: CHLORHEXIDINE GLUCONATE 15 ML CUP MUCOUS MEM SCH (08:51)
[2019-06-01] MEDS: FUROSEMIDE 10 MG/ML 2 ML VIAL IV SCH ×2 (08:51→21:24)
[2019-06-01] MEDS: PIPERACILLIN-TAZOBACTAM 3.375 GM in SODIUM CHLORIDE 0.9% 100 ML IVPB SCH (08:52)
--- NOTE | 2019-06-01 10:49 | PN ---
PROGRESS NOTE PULMONARY/CRITICAL CARE PROGRESS NOTE: DATE OF SERVICE: June 01, 2019 CRITICAL CARE TIME: 35 minutes. This is a 43-year-old female who was admitted to the hospital on May 30. She came into the ER with mental status changes, was thought to possibly have an overdose of calcium channel blockers. Anyway, the patient apparently received Ativan in the emergency room, but became apneic and was intubated in the emergency room on May 30. Currently, she remains on the ventilator. She is on the volume assist- control mode rate of 20, tidal volume 450, FiO2 of 40%, PEEP of 5. She had blood gases done on 50% and similar settings with a pO2 of 11, pCO2 of 34, pH 7.45. She remains on the ventilator. She is on dopamine at 2.5 mcg/kg per minute, propofol at 60 mcg/kg per minute and 0.9 at 125 mL an hour, fentanyl at 2 mcg/kg per hour and Vital high- protein at 20 with the goal of 20. The patient looks very stable. She does open her eyes, even though she is on both the propofol and fentanyl. Currently, her vital signs are stable. We are going to stop the propofol and fentanyl and give her a spontaneous breathing trial. Her weaning parameters actually were excellent. Her rapid shallow breathing index was less than 50. Her NIF was excellent. Tidal volume, minute volume and vital capacity were all good. She past her cuff leak. Hence, I gave the order for extubation. At post extubation, the patient will be n.p.o. for 6 hours. After 6 hours, she will start with sips of water and chips of ice and diet can be advanced at that time. Other medical problems include acute hypoxemic respiratory failure, possibly secondary as I mentioned above to calcium channel blockers or even Atarax. Other issues include acute kidney injury, profound bradycardia, possible urinary tract infection, history of polysubstance abuse with recent episode of respiratory failure requiring long- term mechanical ventilation and subsequent tracheostomy, depression, MRSA skin infections, as well as other medical problems. PHYSICAL EXAMINATION: VITAL SIGNS: Current vital signs are reviewed. Temperature 98.8, heart rate 84, respiratory rate 20, blood pressure 95/60, mean 71, repeat blood pressure 134/81. Central venous pressure was 11. Saturations are 98%. She was extubated at 4 L. GENERAL: She appears in no acute distress. When I saw her, she was intubated and sedated. HEENT: Examination is grossly unremarkable. She has an orally placed endotracheal tube. NECK: Supple. Full range of motion. No adenopathy. Neck veins are flat. CARDIOVASCULAR: Examination reveals regular rhythm and rate. Heart rate in mid 80s. S1, S2 normal. LUNGS: Reveal a few scattered rhonchi. No wheezes. No crackles. Breath sounds equal. ABDOMEN: Soft. Bowel sounds are heard. EXTREMITIES: Are intact. No edema. SKIN: Without rash. NEUROLOGIC: Examination could not be assessed. When I evaluated her this morning, she was on propofol at 60 mcg/kg per minute and fentanyl at 2 mcg/kg per hour. Microbiologic studies including sputum and urine are currently negative. LABS: Labs are reviewed. White count 7.6, hemoglobin 10.5, hematocrit 31.9, platelet count 216,000. Sodium 144, potassium 2.9, chloride 117, CO2 of 23. Anion gap is 4. BUN and creatinine were 7 and 0.66. A chest x-ray done this morning shows mild bibasilar atelectasis. 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 MEDICATIONS: Medications are reviewed. She is currently on the dopamine, fentanyl has been discontinued, Lasix, subcu heparin, Narcan, Levophed has been discontinued, Protonix, Zosyn and propofol which has been discontinued. She is also on potassium replacement. ASSESSMENT: 1. Acute hypoxemic respiratory failure, possibly secondary to multiple drug overdose including either calcium channel blockers and/or Atarax, or could relate to administration in the emergency room of Ativan. 2. Diffuse pulmonary infiltrates, much improved, which may relate to either interstitial edema or possible aspiration. 3. Acute kidney injury secondary to hypotension. 4. Profound bradycardia, which may relate to drug overdose, improved. 5. Possible urinary tract infection. 6. Possible sepsis. 7. History of polysubstance abuse, with a previous episode of respiratory failure requiring long-term mechanical ventilation and previous tracheostomy. 8. History of polysubstance overdose. 9. History of depression. 10.History of methicillin-resistant Staphylococcus aureus skin infection. 11.Metabolic encephalopathy. PLAN: The patient's propofol and fentanyl were both discontinued. We gave her a spontaneous breathing trial on support of 5. Her weaning parameters were excellent including a rapid shallow breathing index which was about 40. She did past her cuff leak. We went ahead and made the decision to extubate the patient. Will discontinue tube feeds. We will keep her n.p.o. for 6 hours post extubation. After 6 hours, sips of water and chips of ice. Her medications are reviewed. Unnecessary medications to be discontinued. We will continue to follow. Her prognosis is guarded. She will continue on the dopamine for now. That can eventually be weaned off. Prognosis is guarded. CRITICAL CARE TIME: 35 minutes. MMJHONNYL / CALLIN: [phone] / MTDSaadia
[2019-06-01 12:42] LABS: Glucose,Whole Blood 90 mg/dL (75-99)
[2019-06-01] MEDS: POTASSIUM CHLORIDE 20 MEQ in WATER FOR INJECTION 1 100ML.BAG IVPB SCH ×2 (13:37→16:23)
--- NOTE | 2019-06-01 19:41 | P.PN ---
Subjective Progress Note Date: 06/01/19 Principal diagnosis: Acute hypoxic respiratory failure and encephalopathy Ms. Leach is a 43-year-old female with significant past medical history of intentional drug overdose, polysubstance abuse, history of ARDS requiring intubation and mechanical ventilation, emesis and pneumonia, depression brought in to the hospital by her parents. Patient's daughter who is 10 years older on her current pain as the patient was acting differently. Heart patient's noted that she was acting weird walking all around the house complaining of being thirsty and was very agitated. So she was brought into the ED for further evaluation. The patient has history of overdosing on amphetamines. In the emergency department she was given a dose of Ativan after which the patient became apneic and ended up being intubated. After that patient was hypotensive and bradycardic was placed on norepinephrine and sent to the ICU. In the ICU Dr. Young changed her pressors to dopamine and as the chest x-ray was showing bilateral interstitial infiltrates/edema she was started on Zosyn empirically. On 05/31/2019 -patient is still in the ICU. She is intubated on a ventilator. Patient is sedated with propofol at maximum dose but still patient is opening her eyes and able to answer a few questions. As per nursing staff report earlier this morning when the patient was tried to wean off propofol she became extremely agitated. So she was back on propofol. Patient's labs from this m orning showed white count of 9.7, platelets 254, sodium 146, potassium 3.6, creatinine 0.84. Review of systems could not be done as the patient is intubated and sedated. On 06/01/19 - Patient still remains in the ICU. She was successfully extubated this morning. She is sitting up in a chair by the bedside. Patient denies having any chest pain or palpitations. No difficulty in breathing. Patient complains of hoarseness of voice and sore throat. Denies having any dysphagia. No dysuria or hematuria. Patient states that she did not overdose on any medications or drugs. She denies having any suicidal or homicidal ideation.On reviewing patient's vitals she has been afebrile, slightly tachycardic and blood pressure within normal limits. She has been saturating at 94% on 4 L of nasal cannula. Patient's labs are reviewed significant for a hemoglobin at 10.5 which is stable. Potassium is low at 2.9. Active Medications Furosemide (Lasix) 20 mg IV Q12HR [facility] Last Admin: 06/01/19 08:51 Dose: 20 mg Documented by: Heparin Sodium (Porcine) (Heparin) 5,000 unit SQ Q8HR [facility] Last Admin: 06/01/19 16:23 Dose: 5,000 unit Documented by: Sodium Chloride (Saline 0.9%) 1,000 mls @ 125 mls/hr IV .Q8H [facility] Last Admin: 06/01/19 13:37 Dose: 125 mls/hr Documented by: Dopamine HCl/Dextrose 800 mg/ (IV Solution) 250 mls @ 4.2 mls/hr IV .Q24H [facility]; Protocol Last Admin: 06/01/19 08:42 Dose: Not Given Documented by: Ceftriaxone Sodium 1 gm/ (Sodium Chloride) 50 mls @ 100 mls/hr IVPB Q24HR [facility] Miscellaneous Information (Potassium Per Protocol) 1 each MISCELLANE DAILY PRN; Protocol PRN Reason: Per Protocol Naloxone HCl (Narcan) 0.2 mg IV Q2M PRN PRN Reason: Opioid Reversal Pantoprazole Sodium (Protonix) 40 mg IV DAILY [facility] Last Admin: 06/01/19 08:51 Dose: 40 mg Documented by: Objective - Vital Signs Vital signs: Vital Signs Temp 98.9 F 06/01/19 16:00 Pulse 96 06/01/19 19:00 Resp 10 L 06/01/19 19:00 BP 117/91 06/01/19 19:00 Pulse Ox 92 L 06/01/19 19:00 Intake & Output 06/01/19 06/01/19 06/02/19 06:59 18:59 06:59 Intake Total 2697.892 2074.994 131 Output Total 1905 2410 100 Balance 792.892 -335.006 31 Weight 125.3 kg Intake: IV 1630 1672 131 0.9 2 125 1500 1500 125 Piperacillin-Tazobactam 3 100 100 .375 gm In Sodium Chloride 0.9% 100 ml @ 25 mls/hr IVPB Q8HR [facility] Rx# :[id number] pressure bag 30 72 6 Intake, IV Titration 737.892 282.994 Amount DOPamine DRIP 800 mg In 104.213 68.6 Dextrose/Water 1 250ml. bag @ 2 MCG/KG/MIN 4.2 mls/hr IV .Q24H [facility] Rx#: [id number] Propofol 1,000 mg In 416.465 176.378 Empty Bag 1 bag @ Titrate IV .Q0M [facility] Rx#: [id number] fentaNYL (PF) 1,000 mcg 217.214 38.016 In Sodium Chloride 0.9% 80 ml @ 1 MCG/KG/HR 12.48 mls/hr IV .Q8H1M [facility] Rx# :[id number] Tube Feeding 240 60 Other 90 60 Output: Urine 1905 2410 100 Other: Voiding Method Indwelling Catheter Indwelling Catheter ABP, PAP, CO, CI - Last Documented Arterial Blood Pressure 127/73 - Exam GEN. APPEARANCE: sitting up in a chair by the bed side HEAD EXAM: Normocephalic. EYE EXAM: Pupils equal and round and reactive to light. No icterus. ENT EXAM: Mild pharyngeal erythema NECK EXAM: Neck is supple. No thyromegaly. No JVD. RESPIRATORY EXAM: Bilateral crackles at the lower lung bases. No wheezing CARDIOVASCULAR EXAM: regular rate, normal rhythm, normal heart sounds. No additional sounds GI/ABDOMINAL EXAM: soft, normal bowel sounds. Nontender. No rigidity or guarding. EXTREMITIES EXAM: No pedal edema. NEUROLOGICAL EXAM: AA0 X 3 , no focal deficits SKIN EXAM: no rash - Labs CBC & Chem 7: 06/01/19 04:10 06/01/19 12:30 Labs: Abnormal Lab Results - Last 24 Hours (Table) 06/01/19 06/01/19 06/01/19 Range/Units 04:10 04:10 04:15 RBC 3.79 L (3.80-5.40) m/uL Hgb 10.5 L (11.4-16.0) gm/dL Hct 31.9 L (34.0-46.0) % RDW 16.6 H (11.5-15.5) % ABG pCO2 34 L (35-45) mmHg ABG pO2 116 H (83-108) mmHg ABG O2 Saturation 99.3 H (94-97) % Potassium 2.9 L (3.5-5.1) mmol/L Chloride 117 H (98-107) mmol/L Calcium 8.0 L (8.4-10.2) mg/dL 06/01/19 Range/Units 12:30 RBC (3.80-5.40) m/uL Hgb (11.4-16.0) gm/dL Hct (34.0-46.0) % RDW (11.5-15.5) % ABG pCO2 (35-45) mmHg ABG pO2 (83-108) mmHg ABG O2 Saturation (94-97) % Potassium 3.2 L (3.5-5.1) mmol/L Chloride (98-107) mmol/L Calcium (8.4-10.2) mg/dL Microbiology - Last 24 Hours (Table) 05/30/19 06:10 Gram Stain - Final Sputum Sputum Culture - Final 05/30/19 04:36 Urine Culture - Final Urine,Voided Assessment and Plan Assessment: ASSESSMENT Acute hypoxic respiratory failure - s/p extubation this morning Acute metabolic encephalopathy Possible drug overdose Hypokalemia Bilateral pulmonary infiltrates Acute kidney injury Bradycardia History of polysubstance abuse History of depression History of MSSA skin infection PLAN: Patient is extubated successfully this morning. Supplement potassium. Patient denies having any suicidal or homicidal ideation and states that she did not overdose on any drugs or medications. Overall prognosis is guarded. Further recommendations to follow depending on the progress of the patient.
[2019-06-02] MEDS: HEPARIN SODIUM,PORCINE 5,000 UNIT/ML 1 ML VIAL SQ SCH ×2 (00:12→09:02)
[2019-06-02 05:29] LABS: Anisocytosis Slight; Basophils % (A) 0 %; Eosinophils # (A) 0.4 k/uL (0-0.7); Eosinophils % (A) 3 %; HCT 36.9 % (34.0-46.0); HGB 11.7 gm/dL (11.4-16.0); Hypochromasia Slight; Lymphocytes # (A) 3.8 k/uL (1.0-4.8); Lymphocytes % (A) 34 %; MCH 27.5 pg (25.0-35.0); MCHC 31.8 g/dL (31.0-37.0); MCV 86.5 fL (80.0-100.0); Mean Platelet Volume 7.6; Monocytes # (A) 0.4 k/uL (0-1.0); Monocytes % (A) 3 %; Neutrophils # (A) 6.7 k/uL (1.3-7.7); Neutrophils % (A) 59 %; Platelet Count 241 k/uL (150-450); RBC 4.27 m/uL (3.80-5.40); RDW 16.1 % (11.5-15.5); WBC 11.4 k/uL (3.8-10.6)
[2019-06-02 05:40] LABS: African American GFR (CKD) >90 (>60 ml/min/1.73 sqM); Anion Gap 8 mmol/L; Blood Urea Nitrogen 8 mg/dL (7-17); Calcium 8.2 mg/dL (8.4-10.2); Carbon Dioxide 24 mmol/L (22-30); Chloride 110 mmol/L (98-107); Glucose 88 mg/dL (74-99); Non-African American GFR(CKD) >90 (>60 ml/min/1.73 sqM); Potassium 3.4 mmol/L (3.5-5.1); Sodium 142 mmol/L (137-145)
[2019-06-02] MEDS: POTASSIUM CHLORIDE ER 20 MEQ TAB.ER PO SCH ×2 (06:11→09:02)
[2019-06-02] MEDS: DOPamine DRIP 800 MG in DEXTROSE/WATER 1 250ML.BAG IV SCH (06:12)
--- NOTE | 2019-06-02 08:15 | XR ---
EXAMINATION TYPE: XR chest 1V portable DATE OF EXAM: 06/02/2019 COMPARISON: 06/01/2019 HISTORY: Extubation. Shortness of breath. TECHNIQUE: Single frontal view of the chest is obtained. FINDINGS: Enteric and endotracheal tubes have been removed. Right-sided central venous catheter has been retracted now terminating in the high right atrium. Bibasilar atelectasis has improved. Overall aeration has improved. No sizable pneumothorax or pleural effusion. Cardiomediastinal silhouette is e nlarged. IMPRESSION: Overall improved aeration of the lung status post extubation and enteric tube removal.
--- NOTE | 2019-06-02 08:56 | PN ---
PROGRESS NOTE PULMONARY/CRITICAL CARE PROGRESS NOTE: DATE OF SERVICE: June 02, 2019. This is a 43-year-old female who was admitted to the hospital on May 30. She came into the ER with mental status changes and was thought to have possible overdose either from calcium channel blockers or Atarax. Anyway, she apparently received Ativan in the emergency room and became apneic and was intubated in the emergency department on May 30. Yesterday when I saw her, she was still on the ventilator. We were able to do a daily interruption of sedation and put her on a spontaneous breathing trial. She had excellent weaning parameters and a positive cuff leak. We were able to successfully extubate her. Yesterday when I saw her, she was on propofol, dopamine and fentanyl. Those were all discontinued. She was extubated successfully on June 01. Currently, she is on 4 to 5 L of nasal cannula and getting a saline IV at 125 mL an hour. She can be transferred in my opinion down to general medical floor without telemetry. The IV can be discontinued or reduced down to 10 or 20 mL an hour. She is eating properly. Anyway, after extubation, the patient was n.p.o. for 6 hours. After 6 hours, she was allowed to have sips of water and chips of ice. She tolerated that well. PHYSICAL EXAMINATION: VITAL SIGNS: Current vital signs include temperature 99.3, heart rate 90, respiratory rate 14, blood pressure 144/85, saturations are 94% on 4 L. GENERAL: Appears in no acute distress. HEENT: Examination is grossly unremarkable. Mucous membranes are moist. No oral lesions. Nasal O2 noted. NECK: Supple. Full range of motion. No adenopathy, thyromegaly or neck vein distention. CARDIOVASCULAR: Examination reveals regular rhythm and rate. Heart rate about 90 beats per minute. S1, S2 normal. LUNGS: Reveal a few scattered mild rhonchi. No wheezes or crackles. Breath sounds equal. ABDOMEN: Soft. Bowel sounds are heard. EXTREMITIES: Are intact. No cyanosis, clubbing, or edema. SKIN: Without rash. NEUROLOGIC: Examination is brief but nonfocal. LABS: Labs are reviewed. White count 11.4, hemoglobin 11.7, hematocrit 36.9, platelet count 241,000. Sodium 142, potassium 3.4, chloride 110, CO2 of 24. Anion gap is 8. BUN and creatinine were 8 and 0.74. Calcium 8.2. Microbiology thus far is negative. A chest x-ray shows improved aeration, status post extubation. She does have some minimal bibasilar atelectasis. MEDICATIONS: Current medications are reviewed. She remains on Rocephin, heparin, Narcan, Protonix, potassium replacement, and an IV. ASSESSMENT: 1. Acute hypoxemic respiratory failure, possibly secondary to multiple drug overdose including either calcium channel blockers and/or Atarax, or could relate to administration in the emergency room of [facility]. 2. Diffuse pulmonary infiltrates, much improved, and may relate to either interstitial edema and/or possible aspiration. 3. Acute kidney injury secondary to hypotension, improved. 4. Profound bradycardia, which may relate to drug overdose, much improved. 5. Possible urinary tract infection/urosepsis. 6. History of polysubstance abuse with a previous episode of respiratory failure, requiring long-term mechanical ventilation and previous tracheostomy. 7. History of polysubstance overdose. 8. History of depression. 9. History of methicillin-resistant Staph aureus skin infections. 10.Metabolic encephalopathy. PLAN: Currently, the patient is sitting up at the bedside. She is much improved. She denies drug overdose. She has no memory as to what exactly happened to her. Anyway, she is doing much better. The IV will be turned down to KVO. Her med list will be simplified. We will keep her on the Rocephin for now. No additional recommendations are made. I will see if we cannot get her a bed on the general medical floor without telemetry. We will continue to follow. Prognosis is guarded. MMODL / IJN: [id number] /
[2019-06-02] MEDS: SODIUM CHLORIDE 0.9% 1,000 ML IV SCH ×2 (08:59→16:59)
[2019-06-02] MEDS: SERTRALINE 100 MG TAB PO SCH (10:17)
[2019-06-02] MEDS: busPIRone HCl 5 MG TAB PO SCH ×3 (10:17→21:45)
[2019-06-02] MEDS: ALPRAZolam 0.5 MG TAB PO PRN (10:19)
--- NOTE | 2019-06-02 20:55 | P.PN ---
Progress Note - Text Progress Note Date: 06/02/19 Chief Complaint: Cough interval history:: This is a pleasant 43-year-old patient of Dr. Mendoza. Patient the past has been reported with pneumonia had to be intubated. On this occasion patient presented to ER with mental status changes could have been an overdose of c alcium channel blockers or Atarax. She received Ativan in the ER became apneic and had to be intubated. On May 30. She was on propofol, dopamine, fentanyl. She was extubated yesterday on June 01. Today-to the ICU. On 4 L of oxygen. Oral regular diet. To sit up in a chair. Congested in the chest. . Review of systems: Was done for constitutional, cardiovascular, GI, pulmonary. relevant finding as above Active Medications Alprazolam (Xanax) 0.5 mg PO DAILY PRN PRN Reason: Anxiety Last Admin: 06/02/19 10:19 Dose: 0.5 mg Documented by: Buspirone HCl (Buspar) 15 mg PO TID [facility] Last Admin: 06/02/19 16:58 Dose: 15 mg Documented by: Enoxaparin Sodium (Lovenox) 40 mg SQ DAILY [facility] Sodium Chloride (Saline 0.9%) 1,000 mls @ 20 mls/hr IV .Q24H [facility] Last Admin: 06/02/19 16:59 Dose: 20 mls/hr Documented by: Ceftriaxone Sodium 1 gm/ (Sodium Chloride) 50 mls @ 100 mls/hr IVPB Q24HR [facility] Last Admin: 06/02/19 09:02 Dose: 100 mls/hr Documented by: Melatonin (Melatonin) 1 mg PO HS [facility] Miscellaneous Information (Potassium Per Protocol) 1 each MISCELLANE DAILY PRN; Protocol PRN Reason: Per Protocol Naloxone HCl (Narcan) 0.2 mg IV Q2M PRN PRN Reason: Opioid Reversal Pantoprazole Sodium (Protonix) 40 mg PO AC-BRKFST [facility] Sertraline HCl (Zoloft) 200 mg PO PC-BRKFST [facility] Last Admin: 06/02/19 10:17 Dose: 200 mg Documented by: Physical examination: VITAL SIGNS: 98.2, 98, 20, 11 2/79, 93% on 4 L GENERAL: , laying in bed, awake, tired on nasal cannula EYES: Pupils equal. Conjunctiva normal. HEENT: External appearance of nose and ears normal, oral cavity grossly normal.healing tracheostomy site NECK: JVD not raised; masses not palpable. HEART: First and second heart sounds are normal; no edema. LUNGS: Respiratory rate increased, decreased breaths on some wheezing ABDOMEN: Soft, nontender, liver spleen not palpable, no masses palpable. PSYCH: A were 3, motor affect slightly low. Investigations, reviewed in the clinical context White count 11.4, hemoglobin 11.7, platelets 241 potassium 3.4 creatinine 0.74 2-D echo-year 55-60% Chest x-ray film personally reviewed by me- reviewed by me shows improved aeration Assessment: -Acute hypoxic respiratory failure possibly secondary to respiratory depression from medications including Atarax., Status post ventilator, currently on 4 L of oxygen -Possible aspiration pneumonia -Acute metabolic encephalopathy with delirium, POA multifactorial -Morbid obesity BMI 42.1 -Depression and anxiety not otherwise specified -Acute kidney injury, likely from hypotension, POA, corrected -Doubt UTI, contaminant sample -Urine drug screen positive for marijuana Plan: Patient is on ceftriaxone, oxygen supplementation. Has been out of bed. Care was discussed with the patient. Patient Atarax will be discontinued. Add melatonin.
[2019-06-02] MEDS ORDERED: hydrOXYzine HCL 25 MG TAB PO SCH (21:00)
[2019-06-02] MEDS ORDERED: MELATONIN 1 MG TAB PO SCH (21:00)
[2019-06-03 00:29] VITALS: RESP 18
[2019-06-03] MEDS: ALPRAZolam 0.5 MG TAB PO PRN (00:34)
[2019-06-03] MEDS ORDERED: PANTOPRAZOLE 40 MG TABLET PO SCH (07:30)
[2019-06-03] MEDS ORDERED: POTASSIUM CHLORIDE ER 20 MEQ TAB.ER PO SCH (08:00)
[2019-06-03] MEDS: busPIRone HCl 5 MG TAB PO SCH (08:14)
[2019-06-03] MEDS: SERTRALINE 100 MG TAB PO SCH (08:15)
[2019-06-03] MEDS ORDERED: ENOXAPARIN 40 MG/0.4 ML SYRINGE SQ SCH (09:00)
[2019-06-03 09:32] VITALS: BP 116/54; PULSE 79; TEMP 98.3
--- NOTE | 2019-06-03 10:05 | PN ---
PROGRESS NOTE PULMONARY/CRITICAL CARE PROGRESS NOTE: DATE OF SERVICE: June 03, 2019 This is a 43-year-old female who was admitted to the hospital back on May 30. She came to the ER with some mental status changes. The patient apparently was given some Ativan in the emergency room and became apneic and was intubated. It is not clear and she does not remember exactly what was going on at that time. There was some suspected history of possible overdose, although her drug screen was negative. The patient apparently was placed on the ventilator and moved to the ICU. A couple days ago, we were able to extubate the patient after giving her a daily interruption of sedation and checking on weaning parameters including a cuff leak and rapid shallow breathing index. Anyway, since that time, she has been doing well. She is currently on room air. She is not receiving any IV fluids. The patient could be transferred out to the general medical floor without telemetry. She denies any shortness of breath, chest tightness, wheezing, cough or phlegm production. Initially when we saw her, she was both on propofol and fentanyl. Those were quickly discontinued. PHYSICAL EXAMINATION: VITAL SIGNS: Current vital signs are reviewed. Temperature 98.4, heart rate 66, respiratory rate 18, blood pressure 130/79, mean 96 and saturations are 96% to 99%. GENERAL: Appears in no acute distress. Looked well. No respiratory distress. HEENT: Examination is grossly unremarkable. Mucous membranes are moist. NECK: Supple. No adenopathy, thyromegaly or neck vein distention. CARDIOVASCULAR: Examination reveals regular rhythm and rate. Heart rate in the 60s. S1, S2 normal. LUNGS: Reveal mostly clear breath sounds. No wheezes or rhonchi. ABDOMEN: Soft. Bowel sounds are heard. EXTREMITIES: Are intact. No edema. SKIN: Without rash. NEUROLOGIC: Examination is brief but nonfocal. Microbiologic studies are negative. LABS: Labs are reviewed. Nothing new from today other than a potassium at 3.4. MEDICATIONS: Medications are reviewed. Currently, she is on Xanax, BuSpar, Rocephin, Lovenox, melatonin, Narcan Protonix, potassium protocol, Zoloft, and a basic IV. ASSESSMENT: 1. Acute hypoxemic respiratory failure, possibly secondary to drug overdose, although not proven. Atarax and/or calcium channel blockers were suspected but not proven. 2. Diffuse pulmonary infiltrates, much improved, likely related to interstitial edema rather than aspiration. 3. Acute kidney injury secondary to hypotension, improved. 4. Bradycardia, resolved. 5. Possible urinary tract infection/sepsis. 6. History of polysubstance abuse with previous episodes of respiratory failure, requiring long-term mechanical ventilation and previous tracheostomy. 7. History of polysubstance overdose. 8. History of depression. 9. History of methicillin-resistant Staphylococcus aureus skin infections. 10.Metabolic encephalopathy. PLAN: Currently, the patient is doing well. She is sitting at bedside. Her medications will be adjusted accordingly. She is currently not on any supplemental oxygen and not receiving any IV fluids. She can be discharged to a general medical floor without telemetry. Additional recommendations and suggestions are forthcoming. The primary service could consider a psychiatric consultation. Additional recommendations and suggestions are forthcoming. JOSELIN / JAG: [id number] /
[2019-06-03 11:00] VITALS: BMI 42.9
[2019-06-03] MEDS ORDERED: CIPROFLOXACIN HCL 500 MG TAB PO SCH (21:00)
--- NOTE | 2019-06-07 23:39 | P.DS ---
Providers Date of admission: 05/30/19 06:47 Expected date of discharge: 06/03/19 Attending physician: Weston Landa Consults: 05/30/19 06:57 Consult Physician Stat Consulting Provider: Kaylah Sarabia Consult Reason/Comments: ICU Do you want consulting provider notified?: Already Contacted Primary care physician: Leandro Mendoza [facility] Course: Chief Complaint: Cough interval history:: This is a pleasant 43-year-old patient of Dr. Mendoza. In the past had pneumonia had to be intubated. On this occasion patient presented to ER with mental status changes could have been an overdose of calcium channel blockers or Atarax. She received Ativan in the ER became apneic and had to be intubated. On May 30. She was on propofol, dopamine, fentanyl. She was extubated yesterday on June 01. Improved. Getting much better. Today-. Total in bed. Sitting up. Overall feeling much better. Seen by Dr. Love. Okay to be discharged Social Staff Worker: Dr. Love from pulmonary Physical examination: VITAL SIGNS: 98.3, 79, 18, 106/54, 97% room air GENERAL: , Sitting up in a chair, comfortable EYES: Pupils equal. Conjunctiva normal. HEENT: External appearance of nose and ears normal, oral cavity grossly normal.healing tracheostomy site NECK: JVD not raised; masses not palpable. HEART: First and second heart sounds are normal; no edema. LUNGS: Respiratory rate normal, improved air entry ABDOMEN: Soft, nontender, liver spleen not palpable, no masses palpable. PSYCH: A were 3, motor affect normal. Investigations, reviewed in the clinical context White count 11.4, hemoglobin 11.7, platelets 241 potassium 3.4 creatinine 0.74 2-D echo-year 55-60% Chest x-ray film personally reviewed by me- reviewed by me shows improved aeration Assessment: -Acute hypoxic respiratory failure possibly secondary to respiratory depression from medications including Atarax., Status post ventilator, improved -Possible aspiration pneumonia -Acute metabolic encephalopathy with delirium, POA multifactorial, improved -Morbid obesity BMI 42.1 -Depression and anxiety not otherwise specified -Acute kidney injury, likely from hypotension, POA, corrected -Doubt UTI, contaminant sample -Urine drug screen positive for marijuana Disposition: Home Patient Condition at Discharge: Serious Plan - Discharge Summary Discharge Rx Participant: No New Discharge Prescriptions: New Cefuroxime Axetil [Ceftin] 500 mg PO BID 3 Days #6 tab Melatonin 1 mg PO HS #30 tab Continue Sertraline HCl [Zoloft] 200 mg PO -KT busPIRone HCL 15 mg PO TID ALPRAZolam [Xanax] 0.5 mg PO DAILY PRN PRN Reason: Anxiety Discontinued hydrOXYzine HCL [Atarax] 25 mg PO HS No Action Atenolol [Tenormin] 50 mg PO DAILY Discharge Medication List Sertraline HCl [Zoloft] 200 mg PO PC-BRKFST 11/16/18 [History] busPIRone HCL 15 mg PO TID 11/16/18 [History] ALPRAZolam [Xanax] 0.5 mg PO DAILY PRN 12/16/18 [History] Atenolol [Tenormin] 50 mg PO DAILY 05/30/19 [History] Cefuroxime Axetil [Ceftin] 500 mg PO BID 3 Days #6 tab 06/03/19 [Rx] Melatonin 1 mg PO HS #30 tab 06/03/19 [Rx] Follow up Appointment(s)/Referral(s): dr LILLIE [Other] - 1 Week Cooper Devine DO [Doctor of Osteopathic Medicine] - 1 Week Leandro Mednoza DO [Primary Care Provider] - 1-2 days Activity/Diet/Wound Care/Special Instructions: Do not use marijuana Discharge Disposition: HOME SELF-CARE
== END 2019-06-03 15:13 | disposition home or self-care (01) | DRG 917 ==
LOC: EC 03:02 → 2SICU 06:47
PROVIDERS: ADMIT Hospitalist; ATTEND Hospitalist
PROC: 4A133J1 Monitoring of Arterial Pulse, Peripheral, Percutaneous Approach (ICD-10-PCS; principal; 2019-05-30)
PROC: 5A1945Z Respiratory Ventilation, 24-96 Consecutive Hours (ICD-10-PCS; principal; 2019-05-30)
PROC: 0BH18EZ Insertion of Endotracheal Airway into Trachea, Via Natural or Artificial Opening Endoscopic (ICD-10-PCS; principal; 2019-05-30)
PROC: 4A133B1 Monitoring of Arterial Pressure, Peripheral, Percutaneous Approach (ICD-10-PCS; principal; 2019-05-30)
PROC: 03HY32Z Insertion of Monitoring Device into Upper Artery, Percutaneous Approach (ICD-10-PCS; principal; 2019-05-30)
PROC: 05HM33Z Insertion of Infusion Device into Right Internal Jugular Vein, Percutaneous Approach (ICD-10-PCS; principal; 2019-05-30)
DX: T43.591A Poisoning by other antipsychotics and neuroleptics, accidental (unintentional), initial encounter (principal); G92 Toxic encephalopathy; J96.01 Acute respiratory failure with hypoxia; J69.0 Pneumonitis due to inhalation of food and vomit; E87.4 Mixed disorder of acid-base balance; F05 Delirium due to known physiological condition; Z68.41 Body mass index [BMI] 40.0-44.9, adult; N17.9 Acute kidney failure, unspecified; T46.1X1A Poisoning by calcium-channel blockers, accidental (unintentional), initial encounter; E66.01 Morbid (severe) obesity due to excess calories; E87.6 Hypokalemia; F32.9 Major depressive disorder, single episode, unspecified; F41.9 Anxiety disorder, unspecified; I95.9 Hypotension, unspecified; R00.1 Bradycardia, unspecified; Z91.5 Personal history of self-harm
CPT/HCPCS: 31500; 36415; 70450; 71045; 80048; 80053; 80306; 80320; 80329; 81001; 81025; 82805; 83520; 83605; 84132; 84484; 85025; 85610; 85730; 86850; 86900; 86901; 86920; 87070; 87086; 87205; 93005; 93306; 94002; 94003; 96361; 96365; 96366; 96375; 99291; 99292

== ENCOUNTER 2019-08-26 06:14 | Emergency (ER) | payer OTHER ==
[2019-08-26 06:26] VITALS: TEMP 98.1
[2019-08-26] MEDS ORDERED: LORazepam 1 MG TAB PO STA (06:36)
[2019-08-26] MEDS ORDERED: ONDANSETRON 4 MG/2 ML VIAL IM STA (06:36)
--- NOTE | 2019-08-26 06:49 | ED ---
General Adult HPI - General Chief complaint: Nausea/Vomiting/Diarrhea Stated complaint: Vomiting, coughing, ear pain Time Seen by Provider: 08/26/19 06:28 Source: patient, RN notes reviewed Mode of arrival: ambulatory Limitations: no limitations - History of Present Illness Initial comments: This a 43-year-old female presents emergency Department chief complaint of fever cough congestion body aches. Patient states that she has not felt well over the last few days. Patient states that she's had some posttussive vomiting. She has no complaints of abdominal pain. Patient states she had one episode of diarrhea denies any hematochezia or melena. Patient states that she has had increased nasal congestion this a productive cough. She does not that she's had a history of pneumonia. She has been intubated in the past with prior treatment. Patient states that she's been sick she's been on some much that she's having trouble sleeping. Patient denies any chest pain, shortness breath this time. Patient does admit that she is very anxious. She is currently sick. Patient denies being suicidal or homicidal. - Related Data Home Medications Medication Instructions Recorded Confirmed Sertraline HCl [Zoloft] 200 mg PO PC-BRKFST 11/16/18 05/30/19 busPIRone HCL 15 mg PO TID 11/16/18 05/30/19 ALPRAZolam [Xanax] 0.5 mg PO DAILY PRN 12/16/18 05/30/19 Atenolol [Tenormin] 50 mg PO DAILY 05/30/19 05/30/19 Previous Rx's Medication Instructions Recorded Cefuroxime Axetil [Ceftin] 500 mg PO BID 3 Days #6 tab 06/03/19 Melatonin 1 mg PO HS #30 tab 06/03/19 Azithromycin [Zithromax Z-pack] 0 mg PO DIRECTED #1 pack 08/26/19 Melatonin 3 mg PO HS #7 tablet 08/26/19 Ondansetron Odt [Zofran Odt] 4 mg PO Q8HR PRN #10 tab 08/26/19 Allergies Allergy/AdvReac Type Severity Reaction Status Date / Time Sulfa (Sulfonamide Allergy Itching Verified 08/26/19 06:26 Antibiotics) sulfamethoxazole Allergy Rash/Hives Verified 08/26/19 06:26 [From Bactrim] trimethoprim [From Bactrim] Allergy Rash/Hives Verified 08/26/19 06:26 Review of Systems ROS Statement: Those systems with pertinent positive or pertinent negative responses have been documented in the HPI. ROS Other: All systems not noted in ROS Statement are negative. Past Medical History Past Medical History: Pneumonia, Respiratory Disorder Additional Past Medical History / Comment(s): Polysubstane abuse, history of drug overdose, history of ARDS requiring intubation and mechanical ventilation, history of severe rhabdomyolysis and LUIS MIGUEL (recovered), history of MSSA pneumonia and sepsis, history of metabolic encephalopathy (recovered), hisotory of depression, suicide, obesity History of Any Multi-Drug Resistant Organisms: None Reported Date of last positivie culture/infection: None MDRO Source:: None Past Surgical History: No Surgical Hx Reported Additional Past Surgical History / Comment(s): breast biopsy (date unknown) Past Anesthesia/Blood Transfusion Reactions: No Reported Reaction Past Psychological History: Anxiety, Depression Smoking Status: Current every day smoker Past Alcohol Use History: None Reported, Unable to Obtain Past Drug Use History: Marijuana, Methamphetamine, None Reported - Past Family History Mother Family Medical History: No Reported History General Exam Limitations: no limitations General appearance: alert, in no apparent distress Head exam: Present: atraumatic, normocephalic, normal inspection Eye exam: Present: normal appearance, PERRL, EOMI. Absent: scleral icterus, conjunctival injection, periorbital swelling ENT exam: Present: normal exam, normal oropharynx, mucous membranes moist Neck exam: Present: normal inspection, full ROM. Absent: tenderness, meningismus, lymphadenopathy Respiratory exam: Present: normal lung sounds bilaterally. Absent: respiratory distress, wheezes, rales, rhonchi, stridor Cardiovascular Exam: Present: regular rate, normal rhythm, normal heart sounds. Absent: systolic murmur, diastolic murmur, rubs, gallop, clicks GI/Abdominal exam: Present: soft, normal bowel sounds. Absent: distended, tenderness, guarding, rebound, rigid Neurological exam: Present: alert, oriented X3 Skin exam: Present: warm, dry, intact, normal color. Absent: rash Course Vital Signs 08/26/19 06:23 Temperature 98.1 F Pulse Rate 109 H Respiratory 22 Rate Blood Pressure 136/95 O2 Sat by Pulse 96 Oximetry Medical Decision Making - Medical Decision Making 43-year-old female presented for multiple complaints. Primary complaint fever cough congestion body aches. Patient's had some associated nausea vomiting. Patient's influenza A positive. Patient will not be provided Tamiflu as symptoms have been present for or 48 hours and she has associated nausea vomiting. Patient we discharged with Zofran she is advised take melatonin or Benadryl for her difficulty sleeping. Return parameters were discussed. Patient cyst x-ray shows evidence of bronchitis versus atypical pneumonia. She does have history of pneumonia in which she was intubated. Patient placed on antibiotics as a precaution - Lab Data Lab Results 08/26/19 Range/Units 06:30 Influenza Type A RNA Detected H (Not Detectd) Influenza Type B (PCR) Not Detected (Not Detectd) Disposition Clinical Impression: Influenza A, Nausea & vomiting, Bronchitis Disposition: HOME SELF-CARE Condition: Stable Instructions (If sedation given, give patient instructions): Influenza (ED) Additional Instructions: Please return to the Emergency Department if symptoms worsen or any other concerns. Prescriptions: Melatonin 3 mg PO HS #7 tablet Azithromycin [Zithromax Z-pack] 0 mg PO DIRECTED #1 pack Ondansetron Odt [Zofran Odt] 4 mg PO Q8HR PRN #10 tab PRN Reason: Nausea Is patient prescribed a controlled substance at d/c from ED?: No Referrals: Leandro Mendoza DO [Primary Care Provider] - 1-2 days Time of Disposition: 07:09
--- NOTE | 2019-08-26 07:25 | XR ---
EXAMINATION TYPE: XR chest 2V DATE OF EXAM: 08/26/2019 COMPARISON: 06/02/2019 HISTORY: Cough and fever TECHNIQUE: Frontal and lateral views of the chest are obtained. FINDINGS: There is no focal air space opacity, pleural effusion, or pneumothorax seen. Interstitial prominence is slightly more pronounced than the prior. The cardiac silhouette size is mildly enlarge d. Mild multilevel degenerative change of the spine. IMPRESSION: Mild interstitial prominence throughout. Finding can be seen in bronchitis or atypical p neumonia.
[2019-08-26 07:52] VITALS: BP 135/88; PULSE 88; RESP 18
== END 2019-08-26 07:42 | disposition home or self-care (01) ==
LOC: EC 06:14
DX: J10.1 Influenza due to other identified influenza virus with other respiratory manifestations (principal); F41.9 Anxiety disorder, unspecified; F32.9 Major depressive disorder, single episode, unspecified; F17.200 Nicotine dependence, unspecified, uncomplicated; R11.2 Nausea with vomiting, unspecified; Z79.899 Other long term (current) drug therapy; Z88.2 Allergy status to sulfonamides; Z88.1 Allergy status to other antibiotic agents; Z87.09 Personal history of other diseases of the respiratory system; Z87.01 Personal history of pneumonia (recurrent)
CPT/HCPCS: 87502; 71046; 96372; 99284; J2405

== ENCOUNTER 2020-01-21 11:23 | Inpatient (IN) | payer OTHER ==
[2020-01-21] MEDS ORDERED: IBUPROFEN 200 MG TAB PO PRN (21:25)
[2020-01-21] MEDS ORDERED: FLUTICASONE 50MCG/SPRAY NASAL 16GM EA NOSTRIL PRN (21:25)
[2020-01-21] MEDS ORDERED: LORATADINE 10 MG TAB PO PRN (21:25)
[2020-01-21] MEDS ORDERED: ALPRAZolam 0.5 MG TAB PO SCH (21:30)
[2020-01-21 22:06] LABS: HCT 32.6 % (34.0-46.0); HGB 10.3 gm/dL (11.4-16.0); MCH 28.8 pg (25.0-35.0); MCHC 31.7 g/dL (31.0-37.0); Mean Platelet Volume 7.4; Platelet Count 218 k/uL (150-450); RBC 3.58 m/uL (3.80-5.40); RDW 15.4 % (11.5-15.5); WBC 12.5 k/uL (3.8-10.6)
[2020-01-21] MEDS: busPIRone HCl 10 MG TAB PO SCH (22:13)
[2020-01-21] MEDS: ACETAMINOPHEN TAB 500 MG TAB PO PRN (22:13)
[2020-01-21 22:14] LABS: ALT 16 U/L (4-34); AST 37 U/L (14-36); African American GFR (CKD) >90 (>60 ml/min/1.73 sqM); Albumin 2.9 g/dL (3.5-5.0); Alkaline Phosphatase 77 U/L (38-126); Anion Gap 5 mmol/L; Blood Urea Nitrogen 4 mg/dL (7-17); Calcium 8.1 mg/dL (8.4-10.2); Carbon Dioxide 22 mmol/L (22-30); Chloride 113 mmol/L (98-107); Glucose 138 mg/dL (74-99); Non-African American GFR(CKD) >90 (>60 ml/min/1.73 sqM); Potassium 3.2 mmol/L (3.5-5.1); Sodium 140 mmol/L (137-145); Total Bilirubin 0.6 mg/dL (0.2-1.3); Total Protein 5.2 g/dL (6.3-8.2)
[2020-01-21] MEDS: SODIUM CHLORIDE 0.9% 1,000 ML IV SCH (22:14)
[2020-01-21] MEDS: VANCOMYCIN 1,750 MG in SODIUM CHLORIDE 0.9% 500 ML 500 ML IVPB SCH (22:14)
[2020-01-21] MEDS ORDERED: POTASSIUM CHLORIDE ER 20 MEQ TAB.ER PO STA (22:28)
--- NOTE | 2020-01-21 23:37 | XR ---
EXAMINATION TYPE: XR chest 2V DATE OF EXAM: 01/21/2020 COMPARISON: 01/20/2020 HISTORY: Aspiration pneumonia. Short of breath. TECHNIQUE: 2 views FINDINGS: There is extensive diffuse interstitial and patchy airspace infiltrate in both lungs. Heart size is fairly normal. There are chest leads. There is no definite pleural effusion. There are no hi lar masses. I see no definite mediastinal adenopathy. IMPRESSION: There is diffuse interstitial and airspace edema that is new or increased compared to silvia st x-ray yesterday.
[2020-01-21] MEDS: NICOTINE 21MG/24HR PATCH TRANSDERM SCH (23:39)
[2020-01-22] MEDS: IPRATROPIUM-ALBUTEROL 3 ML NEB INHALATION SCH ×6 (00:57→20:46)
[2020-01-22] MEDS ORDERED: LORazepam 2 MG/ML INJ IV STA ×2 (05:30→23:57)
[2020-01-22 07:49] LABS: HCT 32.4 % (34.0-46.0); HGB 10.3 gm/dL (11.4-16.0); MCH 28.8 pg (25.0-35.0); MCHC 31.7 g/dL (31.0-37.0); MCV 90.7 fL (80.0-100.0); Mean Platelet Volume 7.4; Platelet Count 227 k/uL (150-450); RBC 3.57 m/uL (3.80-5.40); RDW 15.4 % (11.5-15.5); WBC 11.8 k/uL (3.8-10.6)
[2020-01-22 08:22] LABS: African American GFR (CKD) >90 (>60 ml/min/1.73 sqM); Anion Gap 4 mmol/L; Blood Urea Nitrogen <2 mg/dL (7-17); Calcium 7.8 mg/dL (8.4-10.2); Carbon Dioxide 22 mmol/L (22-30); Chloride 114 mmol/L (98-107); Glucose 113 mg/dL (74-99); Non-African American GFR(CKD) >90 (>60 ml/min/1.73 sqM); Potassium 3.4 mmol/L (3.5-5.1); Sodium 140 mmol/L (137-145)
[2020-01-22 09:02] LABS: Glucose,Whole Blood 126 mg/dL (75-99)
[2020-01-22 09:07] LABS: Allen Test Performed? Yes
[2020-01-22 09:09] LABS: ABG Base Excess -4.6 mmol/L; ABG HCO3 21 mmol/L (21-25); ABG Oxygen Saturation 98.3 % (94-97); ABG PCO2 37 mmHg (35-45); ABG PH 7.36 (7.35-7.45); ABG PO2 103 mmHg (83-108); ABG TCO2 22 mmol/L (19-24)
--- NOTE | 2020-01-22 09:21 | CT ---
EXAMINATION TYPE: CT brain wo con DATE OF EXAM: 01/22/2020 COMPARISON: 05/30/2019 INDICATION: CODE STROKE DLP: 1099.4 mGycm, Automated exposure control for dose reduction was used. CONTRAST: None CT of the brain is performed utilizing 3 mm thick sections through the posterior fossa and 3 mm thick sections through the remaining calvarium. Study is performed within 24 hours of arrival to the hosp [place]. No abnormal hyperdensity is present to suggest an acute intracranial hemorrhage. No mass lesion is evident. No acute infarcts are evident. Old right basal ganglion lacunar infarct is again evident. Old lacunar infarct or Virchow-Jacques space is present in the left basal ganglion, stable from comparison. Some h ypodensity remains stable adjacent to the anterior horn right lateral ventricle. No acute interval ch melissa. Ventricles and sulci are appropriate for the patient age. Paranasal sinuses and mastoid air cells within the [id number] are clear. IMPRESSIONS: 1. No acute intracranial process radiographically evident. 2. Old basal ganglion lacunar infarcts and chronic periventricular white matter changes
[2020-01-22] MEDS: CEFEPIME 1 GM in SODIUM CHLORIDE 0.9% 50 ML IVPB SCH ×2 (09:37→23:12)
[2020-01-22] MEDS: SODIUM CHLORIDE 0.9% 1,000 ML IV SCH ×3 (09:38→23:13)
[2020-01-22] MEDS: atenoloL 50 MG TAB PO SCH (09:44)
[2020-01-22] MEDS: ENOXAPARIN 40 MG/0.4 ML SYRINGE SQ SCH (09:44)
[2020-01-22] MEDS: VANCOMYCIN 1,750 MG in SODIUM CHLORIDE 0.9% 500 ML 500 ML IVPB SCH ×2 (09:44→23:12)
[2020-01-22] MEDS: NICOTINE 21MG/24HR PATCH TRANSDERM SCH (09:47)
[2020-01-22] MEDS: busPIRone HCl 10 MG TAB PO SCH ×2 (09:47→20:26)
[2020-01-22] MEDS: SERTRALINE 100 MG TAB PO SCH (09:47)
--- NOTE | 2020-01-22 10:03 | XR ---
EXAMINATION TYPE: XR chest 1V DATE OF EXAM: 01/22/2020 CLINICAL HISTORY: Shortness of breath TECHNIQUE: Portable upright view of the chest obtained COMPARISON: Chest radiograph 01/21/2020 FINDINGS: The cardiomediastinal silhouette is within normal limits for size. There is redemonstrated diffuse interstitial and airspace opacities. Likely new small left pleural effusion. No pneumothorax seen. The osseous structures are intact. IMPRESSION: Redemonstrated interstitial edema. Mildly increased patchy airspace opacity of the left l angelica base, and new small left pleural effusion.
--- NOTE | 2020-01-22 10:10 | CT ---
EXAMINATION TYPE: CODE STROKE: CTA head neck DATE OF EXAM: 01/22/2020 HISTORY: CODE STROKE COMPARISON: None CT DLP: 1063.6 mGycm. Automated Exposure Control for Dose Reduction was Utilized. TECHNIQUE: CTA scan of the neck is performed without and with IV Contrast, patient injected with 100 ML mL of Isovue 370, axial images are obtained, coronal and sagittal reformatted images are reviewed . Source images are reviewed. Contrast injection was within the groin and contrast signal prevents T hree-D reconstructed images. This exam therefore be somewhat limited. FINDINGS: Carotid/Vascular Structures: The carotid arteries are patent to the skull base. There is a three-vess el arch. Suspicious focal stenosis at the carotid bifurcations is not identified on the source images . Mid imaging likewise does not demonstrate a significant stenosis. Cervical of [place]: There is poor visualization of the vertebral basilar system. The internal carotid arteries bifurcate normally into A1 and M1 segments. The anterior communicating artery appears paten t. Left posterior communicating artery is patent. Additional findings: Bilateral infiltrates are through the lung hernandez. Consider pulmonary edema and atypical pneumonia. IMPRESSION: 1. Exam is limited due to concentration of contrast in contrast timing. 2. [place] of [place] and carotid bifurcations, as visualized, appear within normal limits. 3. Bilateral lung apex infiltrates. Consider atypical pneumonia within the differential. Pulmonary ed michelle could be considered.
[2020-01-22 10:38] LABS: INR 1.1 (<1.2); Prothrombin Time 11.4 sec (9.0-12.0)
[2020-01-22] MEDS ORDERED: VANCOMYCIN IV PER PHARMACY 1 EACH MISC MISCELLANE PRN (12:00)
[2020-01-22] MEDS: ACETAMINOPHEN TAB 500 MG TAB PO PRN (13:20)
--- NOTE | 2020-01-22 14:00 | P.CN ---
Psychiatric Consult - . Consult date: 01/22/20 Consult:: 01/22/20 13:52 IDENTIFYING DATA: This patient is a 44-year-old female currently lives with her daughter in a house is single and unemployed. HISTORY OF PRESENT ILLNESS: The patient presented to the hospital as a transfer from [facility] after patient had an overdose and suicide attempt. She had a computed tomography scan done of her brain on 01/21 which showed no acute changes however did show an old basal ganglion lacunar infarct and chronic periventricular white matter changes. Patient had a CTA completed as well which showed bilateral lung apex infiltrates. Patient is currently treated for suspected pneumonia on the medical floors and psychiatry was consulted for suicide attempt and overdose. There is taking care of patient claims that patient has been denying the overdose as a suicide attempt and stated the patient talk 40 baclofen tablets. Nurse claims that patient is being treated for aspiration pneumonia with antibiotics and stated that patient's 11-year-old daughter called EMS she found patient in the home after having the overdose. Patient does have a history of anxiety depression and also polysubstance abuse. She was seen at the bedside with a one-to-one sitter. Patient claims that she "took the pills that I shouldn't have". She was referring to baclofen and claims that she only took 6 tablets and states that it was not a suicide attempt. She states that she got this medication from "a friend" and states that she was using it "to feel better emotionally". She was fairly guarded/evasive and concrete minimizing her symptoms however did state that she was feeling depressed and has been dealing with depression since the age of 14. She states that she has been compliant with her medications for depression. She states that she's been having stressors at home including family issues arguing with her brother about his alcoholism and also feeling isolated at home. She endorses anxiety at this time and claims to have poor sleep. She also endorses guilt and problems with concentration and hopelessness. She denied any history of manic episodes. Patient has poor insight and judgment. At this time patient denies any suicidal or homical ideations, intent or plan. Patient denies any auditory, visual hallucinations and denies any paranoia or delusions. Patients admits to using cigarettes daily and marijuana occasionally and claims that she used to use methamphetamine "years ago". PAST PSYCHIATRIC HISTORY: Patient has a a history of depression and anxiety. Patient is on Zoloft, BuSpar and Xanax. She states that she was previously admitted to a psychiatric hospital in 2018 after another suspected overdose. Patient denies any psychiatric outpatient follow-up. Patient denied any history of suicide attempts however as per nurse taking care of patient states that she has had approximately 5 suicide attempts in the past. PAST MEDICAL HISTORY: Respiratory disease, pneumonia. ALLERGIES: as per EMR. CHEMICAL DEPENDENCY HISTORY: as per HPI. FAMILY PSYCHIATRIC/SUBSTANCE USE HISTORY: States that her brother has depression and alcoholism. SOCIAL HISTORY: Patient was born and raised in [facility] including to complete up to the 12th grade of school. She is currently single and has 1 daughter and lives in a house and is unemployed. She claims that she had a DUI in 2002 and also spent time in [facility] after domestic violence charges. MENTAL STATUS EXAM: General Appearance: Patient appears to be older than stated age is alert, guarded/evasive and appears to be medically ill. Patient appears to have poor hygiene and grooming wearing hospital gown with poor eye contact. Behavior: Patient is calmly lying in bed without any agitated behavior. Evasive. Speech: Patient's speech is fluent and nonpressured. Garbled speech. Mood/Affect: Patient reports their mood is "depressed and anxious", affect is congruent Suicidality/Homicidality: Patient denies having any suicidal or homicidal ideation intent or plan. Perceptions: Patient denies any visual hallucinations and denies any auditory hallucinations Though content/process: [place], poor historian. Logical and goal oriented. Guarded/evasive. Memory and concentration: AOX3, grossly intact for the purposes of this session. Can spell "WORLD" backwards Judgment and insight: poor/impulsive IMPRESSIONS: Major depressive disorder, recurrent, severe Anxiety disorder unspecified History of methamphetamine abuse Cannabis use disorder Nicotine dependence PLAN: -At this time patient DOES meet criteria for inpatient psychiatric admission. -Would recommend the following medication changes/additions: Continue with currently prescribed medications including Xanax 0.5 mg daily at bedtime, BuSpar 30 mg twice a day and Zoloft 200 mg daily. -Ordered UDS -Continue 1:1 sitter for safety, the sitter should be continued up until patient is transferred to the mental health unit. -Cannot leave AMA at this time. Patient will need a petition and certification if attempting to leave AMA. -When medically stable, patient is eligible for transfer to a psych bed when available. -Psychiatry will sign off at this point, please contact with any questions.
--- NOTE | 2020-01-22 15:21 | P.CNNES ---
History of Present Illness Consult date: 01/22/20 Requesting physician: Tal Arias Reason for Consult: Stroke code, visual changes History of Present Illness: Patient is a 44-year-old female, who was initially admitted to [facility] for overdose on baclofen. Patient took 60 mg of baclofen. Patient was placed in ICU, she was intubated on 01/18/2020 up till 01/22/2020. Patient was transferred to [facility] yesterday for psych evaluation. Patient's urine drug screen was positive for amphetamines, benzodiazepine. Patient also apparently had aspiration pneumonia. She has been very short of breath. Patient today while watching TV noticed upper altitudinal visual field defect, which she feels was in both eyes. It only lasted for "a few seconds" and then went away. Patient states that she believes that the way she was looking at the TV may have produced this transient visual field defect. Patient apparently was very hypoxic and her oxygen saturation also was down at 85%. She was placed on nonrebreather mask. Patient did not have any slurred speech facial droop, or focal weakness numbness or tingling. Patient denied any diplopia, no history of optic neuritis or MS. Patient appears overall sick from her pneumonia. Patient underwent CT head showed no acute intracranial process radiographically evident. Old basal ganglion lacunar infarcts and chronic periventricular white matter changes. CTA of head and neck showed exam is limited due to concentration of contrast and contrast timing. [place] of [place] and carotid bifurcations as visualized appear within normal limits. Bilateral lung Infiltrates. Consider atypical pneumonia within the differential. Pulmonary edema could be considered. Chest x-ray showed redemonstrated interstitial edema. Mildly increased patchy air space opacity of the left lung base, and new small left pleural effusion. Patient's CBC shows WBC 11.8 hemoglobin 10.3, platelets 227, PT/PTT normal, Chem-7 normal. Last hemoglobin A1c 5.3 on 11/17/2018. AST minimally elevated 37 normal ALT. Her previous rheumatoid factor, LAQUITA negative. Patient had a 2-D echo on 05/30/2019, which revealed mild concentric LVH, EF is between 55-60%. Left atrial size is normal. Patient states her mother has multiple sclerosis. Patient has smoked 1 pack per day for 20 years, quit in November 2018. Review of Systems Patient appears very sick, short of breath. In mild to moderate respiratory distress. Denies abdominal pain nausea vomiting diarrhea. Patient complains of feeling tired. Please refer to HPI. All other review of systems unremarkable. Past Medical History Past Medical History: Pneumonia, Respiratory Disorder Additional Past Medical History / Comment(s): Polysubstane abuse, history of drug overdose, history of ARDS requiring intubation and mechanical ventilation, history of severe rhabdomyolysis and LUIS MIGUEL (recovered), history of MSSA pneumonia and sepsis, history of metabolic encephalopathy (recovered), hisotory of depression, suicidal thoughts, suicide attempts, obesity History of Any Multi-Drug Resistant Organisms: None Reported Date of last positivie culture/infection: None MDRO Source:: None Past Surgical History: No Surgical Hx Reported Additional Past Surgical History / Comment(s): breast biopsy (date unknown), trach placement and peg tube placement for ARDS Past Anesthesia/Blood Transfusion Reactions: No Reported Reaction Past Psychological History: Anxiety, Depression Additional Psychological History / Comment(s): 5 previous suicide attempts Smoking Status: Current every day smoker Past Alcohol Use History: None Reported, Unable to Obtain Additional Past Alcohol Use History / Comment(s): The patient was a smoker for at least 20 years 1 pack per day and quit in November 2018. She denies any IV drug use. She states she has abused Vicodin in the past. She is currently living with her daughter. There is a cat in the home. No recent travel. Past Drug Use History: Marijuana, Methamphetamine, None Reported - Past Family History Mother Family Medical History: No Reported History Medications and Allergies Home Medications Medication Instructions Recorded Confirmed Type Sertraline HCl [Zoloft] 200 mg PO DAILY 11/16/18 01/21/20 History ALPRAZolam [Xanax] 0.5 mg PO HS 12/16/18 01/21/20 History atenoloL [Tenormin] 50 mg PO DAILY 05/30/19 01/21/20 History Acetaminophen Tab [Tylenol Tab] 500 - 1,000 mg PO Q6H PRN 01/21/20 01/21/20 History Fluticasone Nasal [place] [Flonase 2 spr EA NOSTRIL BID PRN 01/21/20 01/21/20 History Nasal [place]] Ibuprofen [Motrin Ib] 200 - 400 mg PO Q6H PRN 01/21/20 01/21/20 History Loratadine [Claritin] 10 mg PO DAILY PRN 01/21/20 01/21/20 History busPIRone HCL [Buspar] 30 mg PO BID 01/21/20 01/21/20 History Allergies Allergy/AdvReac Type Severity Reaction Status Date / Time Sulfa (Sulfonamide Allergy Itching Verified 01/21/20 20:22 Antibiotics) sulfamethoxazole Allergy Rash/Hives Verified 01/21/20 20:22 [From Bactrim] trimethoprim [From Bactrim] Allergy Rash/Hives Verified 01/21/20 20:22 Physical Examination - Vital Signs Vital Signs: Vital Signs Temp Pulse Resp BP Pulse Ox 01/22/20 09:50 102 H 40 H 159/93 98 01/22/20 09:30 135/89 01/22/20 08:53 105 H 40 H 160/100 100 01/22/20 08:50 103 H 40 H 154/94 98 01/22/20 08:45 100 F H 102 H 28 H 148/98 99 01/22/20 08:30 100 F H 106 H 32 H 126/94 85 L 01/22/20 08:00 40 H 01/22/20 04:00 98.9 F 87 40 H 131/83 96 01/22/20 00:00 99.2 F 96 41 H 116/71 96 01/21/20 20:00 99.1 F 93 38 H 132/90 97 01/21/20 19:40 99.1 F 93 30 H 132/90 97 Intake and Output 01/21/20 01/22/20 01/22/20 22:59 06:59 14:59 Intake Total 2250 Output Total 1050 Balance -1050 2250 Intake: Intake, IV Titration 2250 Amount Sodium Chloride 0.9% 1, 500 000 ml @ 100 mls/hr IV . Q10H CATHY Rx#:[id number] Vancomycin 1,750 mg In 1750 Sodium Chloride 0.9% 500 ml 500 ml @ 167 mls/hr IVPB Q12H CATHY Rx#: [id number] Output: Urine 1050 Uretheral (Hdz) 450 Other: Voiding Method Indwelling Catheter Toilet # Voids 3 Weight 113.9 kg 113.9 kg On examination patient is a middle aged female, who appears obviously sick, distress, coughing. She is mildly encephalopathic, speech and language functions are normal. Attention and concentration slightly impaired, fund of knowledge appears adequate. On cranial nerve examination pupils are round and reactive to light, visual hernandez are full on confrontation. Extraocular muscles are intact with no nystagmus. Face is symmetric and tongue protrudes the midline. Palatal elevation and sensation normal on muscle strength testing there is no pronator drift and the strength is normal in arms and legs distally and proximally reflexes are 1+ and plantars are downgoing. Sensory touch is equal. No ataxia for [id number] testing. Tone and bulk of muscles normal. There is no bruit, S1 and S2 audible. Abdomen soft nontender. No peripheral edema. Results - Laboratory Findings CBC and BMP: 01/22/20 07:22 01/22/20 07:22 Abnormal Lab Findings: Abnormal Labs 01/21/20 01/21/20 01/22/20 21:53 21:53 07:22 WBC 12.5 H 11.8 H RBC 3.58 L 3.57 L Hgb 10.3 L 10.3 L Hct 32.6 L 32.4 L ABG O2 Saturation Potassium 3.2 L Chloride 113 H BUN 4 L Glucose 138 H POC Glucose (mg/dL) Calcium 8.1 L AST 37 H Total Protein 5.2 L Albumin 2.9 L 01/22/20 01/22/20 01/22/20 07:22 09:00 09:01 WBC RBC Hgb Hct ABG O2 Saturation 98.3 H Potassium 3.4 L Chloride 114 H BUN <2 L Glucose 113 H POC Glucose (mg/dL) 126 H Calcium 7.8 L AST Total Protein Albumin Assessment and Plan Assessment: * Transient visual disturbance with upper altitudinal defect in the visual field in both eyes, that lasted for "a few seconds". Doubt TIA based upon duration of symptoms, however her computed tomography scan of the head does reveal evidence of previous lacunar strokes. * Vascular risk factors include tobacco use, polysubstance abuse. * Status post intentional overdose on baclofen. * Status post ventilatory-dependent respiratory failure. Status post extubation 01/21/2020. * Aspiration pneumonia. Plan: * Patient had a normal CTA of head and neck. * Patient had a normal 2-D echo performed few months ago. See no need to repeat the echo. * Start aspirin 325 mg daily. * Check fasting lipid panel, hemoglobin A1c. * Neurology coverage not available over the weekend.
--- NOTE | 2020-01-22 16:54 | CONS ---
CONSULTATION PULMONARY/CRITICAL CARE CONSULTATION: DATE OF SERVICE: 01/22/2020 This patient is a 44-year-old female well known to our service. She has a prior history or two of suicide attempts. The last time we saw her was back in May 2019, at which time she had an episode of acute hypoxemic respiratory failure secondary to drug overdose, thought to be related to Atarax and/or calcium channel blockers. She also has a prior history of polysubstance abuse and respiratory failure requiring previous long-term mechanical ventilation and tracheostomy. Apparently on this admission, there was an overdose of methamphetamines, amphetamines, possibly baclofen and benzodiazepines. She apparently was seen initially over at [facility] and intubated on 01/19/2020 for polysubstance abuse and respiratory failure. She was seen by my partner, Dr. Og, and apparently extubated yesterday. She was transferred here for psychiatric evaluation. There is some concern that she may have aspirated in the process of extubation or shortly thereafter. Her chest x-ray does show diffuse bilateral infiltrates and her oxygen requirements are about 8 L/minute at the current time. Anyway, she is resting comfortably. She is on antibiotics. Her chest x-ray shows diffuse infiltrates. Psychiatry has seen her. They feel she is a good candidate for inpatient psychiatric care once she is cleared medically. ALLERGIES: ALLERGIES include SULFA, ANTIBIOTICS and TRIMETHOPRIM. HOME MEDICATIONS: Home medications include BuSpar, atenolol, Zoloft, Claritin, ibuprofen, Flonase nasal spray, Tylenol and Xanax. MEDICAL HISTORY: Medical history includes acute kidney injury, acute hypoxemic respiratory failure, long- term intubation with mechanical ventilation and eventual tracheostomy, metabolic encephalopathy, depression, polysubstance abuse, among other things. Recently the patient was at [facility] for an episode of acute hypoxemic respiratory failure, intubated on the 01/18 and extubated on 01/21/2020. SOCIAL HISTORY: Positive for polysubstance abuse and tobacco use. OCCUPATIONAL HISTORY: Noncontributory. FAMILY HISTORY: Noncontributory. SURGICAL HISTORY: Surgical history is remote but includes previous tracheostomy. REVIEW OF SYSTEMS: CONSTITUTIONAL: Weakness. NEUROLOGIC: Negative. HEENT: Negative. CARDIOVASCULAR: Negative. PULMONARY: Respiratory failure. GI: Negative. : Negative. RHEUMATOLOGIC: Negative. IMMUNOLOGIC: Negative. ENDOCRINOLOGIC: Negative. DERMATOLOGIC: Negative. PHYSICAL EXAMINATION: VITAL SIGNS: Current vital signs include a temperature which is 100, heart rate which is about 100, respiratory rate which is mid 20s, blood pressure 159/93 with a mean of 115, and saturations are 93% to 94% on 8 L high flow. GENERAL APPEARANCE: Appears somewhat weak. She is talkative. She is not having any niya respiratory distress. HEENT: Examination is grossly unremarkable. NECK: Supple. There is a scar from her previous midline tracheostomy. CARDIOVASCULAR: Examination reveals tachycardia. Heart rate is about 100 beats per minute. It is regular. LUNGS: Lungs reveal diffuse coarse rhonchi. A few scattered crackles. No wheezes. ABDOMEN: Obese. EXTREMITIES: Intact. Minimal edema. SKIN: Without rash. Multiple tattoos. NEUROLOGIC: Neurologic examination is brief but nonfocal. LABS: Reviewed. White count 11.8, hemoglobin 10.3, hematocrit 32.4, platelet count 327,000. Blood gases here show pO2 of 103, pCO2 of 37, pH 7.36. That apparently was on a non- rebreather. Sodium 140, potassium 3.4, chloride 114, CO2 22. Anion gap is 4. BUN and creatinine were less than 2 and 0.53. The rest of the labs look okay. PT and INR were normal. Microbiology is pending or negative. Chest x-ray shows diffuse bilateral infiltrates. This could relate to underlying pneumonia and/or fluid overload. MEDICATIONS: Medications are reviewed. Currently she is on Tylenol, Xanax, atenolol, BuSpar, cefepime, Lovenox, Flonase nasal spray, ibuprofen, DuoNeb, loratadine, loratadine, nicotine patch, Zoloft and vancomycin. ASSESSMENT: 1. Acute hypoxemic respiratory failure, likely related to polysubstance abuse and drug overdose, including amphetamines, methamphetamines and possibly baclofen as well as benzodiazepines. 2. Prior episodes of attempted suicide with drug overdoses requiring intubation, mechanical ventilation and even on one occasion long-term intubation with mechanical ventilation and subsequent tracheostomy. 3. Rule out aspiration subsequent to extubation on January 21, 2020. 4. History of acute kidney injury. 5. Prior history of urinary tract infection. 6. History of depression. 7. Prior history of methicillin-resistant Staphylococcus aureus skin infections. 8. Metabolic encephalopathy. 9. Obesity. PLAN: Appreciate input from Psychiatry. Once cleared, she will be placed inpatient Psychiatry. Currently she is on 8 L high flow. She is on good antibiotics in the form of cefepime and vancomycin. Her respiratory status seems relatively stable. We will continue to follow. Additional recommendations and suggestions are forthcoming. She needs to have a sitter 100% of the time. No additional recommendations are made. Will continue to follow. JOSELIN / CALLIN: [phone] /
[2020-01-22] MEDS: ASPIRIN 325 MG TAB PO SCH (18:02)
[2020-01-22 19:02] LABS: Amphetamine Screen,Urine Not Detected (NotDetected); Barbiturate Screen,Urine Not Detected (NotDetected); Benzodiazepines Screen,Urine Detected (NotDetected); Cocaine Screen,Urine Not Detected (NotDetected); Methadone Screen, Urine Not Detected (NotDetected); Opiate Screen,Urine Detected (NotDetected); Oxycodone Screen, Urine Not Detected (NotDetected); Phencyclidine Screen,Urine Not Detected (NotDetected); Tricyclic Antidepressant,Urine Not Detected (NotDetected); Urn Cannabinoid Scrn Not Detected (NotDetected)
[2020-01-22] MEDS: MELATONIN 5 MG TABLET PO SCH (20:26)
[2020-01-22] MEDS: LORazepam 2 MG/ML INJ IV SCH (20:26)
[2020-01-22 20:44] LABS: Glucose,Whole Blood 102 mg/dL (75-99)
[2020-01-22 21:06] LABS: ABG Base Excess -6.1 mmol/L; ABG HCO3 20 mmol/L (21-25); ABG Oxygen Saturation 75.3 % (94-97); ABG PCO2 35 mmHg (35-45); ABG PH 7.35 (7.35-7.45); ABG TCO2 21 mmol/L (19-24); Allen Test Performed? Yes
[2020-01-22 21:13] LABS: ABG PO2 40 mmHg (83-108)
--- NOTE | 2020-01-22 21:22 | XR ---
EXAMINATION TYPE: XR chest 1V portable DATE OF EXAM: 01/22/2020 COMPARISON: 01/22/2020 INDICATION: Respiratory distress TECHNIQUE: Single frontal view of the chest is obtained. FINDINGS: The heart size is enlarged. The pulmonary vasculature is prominent. There is diffuse increased lung markings present bilaterally. This is slightly worsened over the inte rval. IMPRESSION: 1. Worsening diffuse lung infiltrates. Correlate for ARDS.
[2020-01-22 21:25] LABS: Basophils % (A) 0 %; Eosinophils # (A) 0.2 k/uL (0-0.7); Eosinophils % (A) 1 %; HCT 36.6 % (34.0-46.0); HGB 11.4 gm/dL (11.4-16.0); Lymphocytes # (A) 2.2 k/uL (1.0-4.8); Lymphocytes % (A) 14 %; MCH 28.6 pg (25.0-35.0); MCHC 31.3 g/dL (31.0-37.0); MCV 91.5 fL (80.0-100.0); Mean Platelet Volume 7.6; Monocytes # (A) 0.3 k/uL (0-1.0); Monocytes % (A) 2 %; Neutrophils # (A) 13.3 k/uL (1.3-7.7); Neutrophils % (A) 82 %; Platelet Count 226 k/uL (150-450); RDW 15.2 % (11.5-15.5); WBC 16.2 k/uL (3.8-10.6)
[2020-01-22 22:06] LABS: African American GFR (CKD) >90 (>60 ml/min/1.73 sqM); Anion Gap 8 mmol/L; Blood Urea Nitrogen 2 mg/dL (7-17); Carbon Dioxide 20 mmol/L (22-30); Chloride 112 mmol/L (98-107); Glucose 109 mg/dL (74-99); Magnesium 1.9 mg/dL (1.6-2.3); Non-African American GFR(CKD) >90 (>60 ml/min/1.73 sqM); Sodium 140 mmol/L (137-145)
[2020-01-22] MEDS ORDERED: NALOXONE 0.4 MG/ML 1 ML VIAL IV PRN (22:25)
--- NOTE | 2020-01-22 22:33 | P.HPIM ---
History of Present Illness H&P Date: 01/22/20 Chief Complaint: Short of breath cough History of presenting complaint: This is a 44-year-old patient who follows that MAGY Ramos. Patient had initially presented to [facility] with altered mental status. She had taken methamphetamines and also overdose of baclofen. She went into respiratory distress and had to be intubated. She was extubated the following morning that is yesterday. Was short of breath. Somewhat agitated. Requiring 2 L of oxygen. I did talk to the patient about getting transferred to [facility] on for psychiatry evaluation but patient refuses. Patient was here in the hospital in May 2019 felt be possible overdose of calcium channel blockers or Atarax. Patient to hospital for a few days. Has underlying depression and anxiety. I had to certify the patient. She was very anxious and depressed. And patient was transferred over here to [facility] yesterday evening. Patient had developed a fever felt to have aspiration pneumonia and was started on vancomycin and Zosyn. An bronchodilators. Pulmonary Dr. Devine was consulted. And so was psychiatry. Patient had previous suicide attempts Review of systems: GEN.: Tired EYES: None HEENT: None NECK: None RESPIRATORY: Short of breath cough CARDIOVASCULAR: None GASTROINTESTINAL: None GENITOURINARY: None MUSCULOSKELETAL: None LYMPHATICS: None HEMATOLOGICAL: None PSYCHIATRY: Anxious depressed] NEUROLOGICAL: None Past medical history to include: Anxiety, depression, acute respiratory failure leading to intubation, suicide attempts Social history: Patient smokes about a pack a day. Denies use of IV drug abuse. Has abused Vicodin the past. 11-year-old daughter's list. done marijuana and methamphetamines. Family history: Reviewed, noncontributory to presentation Physical examination: VITAL SIGNS: 100, 106, 32, 126/94, 85% on 5 L GENERAL: BMI 40.5, proper bed, short of breath with nasal cannula, anxious. EYES: Pupils equal. Conjunctiva normal. HEENT: External appearance of nose and ears normal, oral cavity grossly normal. NECK: JVD not raised; masses not palpable. HEART: First and second heart sounds are normal; no edema. LUNGS: Respiratory rate increased, unable to speak in full sentences, excessive muscle looking, diminished breath sounds on expiration. ABDOMEN: Soft, nontender, liver spleen not palpable, no masses palpable. PSYCH: Alert and oriented x3; mood and affect anxiousl. NEUROLOGICAL: Cranial nerves grossly intact; no facial asymmetry, power and sensation grossly intact. LYMPHATICS: No lymph nodes palpable in the axilla and neck INVESTIGATIONS, reviewed in the clinical context: White count 12.5 hemoglobin 10.3 potassium 3.2 creatinine 0.61 procalcitonin 0.12 Chest x-ray film personally reviewed by me-bilateral infiltrates Assessment: -Bilateral pneumonia suspected gram-negative organism and aspiration pneumonia causing severe sepsis -Acute delirium on the metabolic encephalopathy from the same -Methamphetamine use and overdose of baclofen -Possible bipolar disorder with depression and anxiety -Acute hypoxic yesterday failure from above, worsening -Morbid obesity BMI 40.5 -Hypoalbuminemia-acute phase reactant -Hypo kalemia Plan: Patient was started on vancomycin and cefepime. Oxygen supplementation. Psychiatry and test and research reactor operator was consulted. Patient also has a sitter. Lovenox for DVT prophylaxis. IV fluids. Care is discussed with the patient. Follow electrolytes. Past Medical History Past Medical History: Pneumonia, Respiratory Disorder Additional Past Medical History / Comment(s): Polysubstane abuse, history of drug overdose, history of ARDS requiring intubation and mechanical ventilation, history of severe rhabdomyolysis and LUIS MIGUEL (recovered), history of MSSA pneumonia and sepsis, history of metabolic encephalopathy (recovered), hisotory of depression, suicidal thoughts, suicide attempts, obesity History of Any Multi-Drug Resistant Organisms: None Reported Date of last positivie culture/infection: None MDRO Source:: None Past Surgical History: No Surgical Hx Reported Additional Past Surgical History / Comment(s): breast biopsy (date unknown), trach placement and peg tube placement for ARDS Past Anesthesia/Blood Transfusion Reactions: No Reported Reaction Past Psychological History: Anxiety, Depression Additional Psychological History / Comment(s): 5 previous suicide attempts Smoking Status: Current every day smoker Past Alcohol Use History: None Reported, Unable to Obtain Additional Past Alcohol Use History / Comment(s): The patient was a smoker for at least 20 years 1 pack per day and quit in November 2018. She denies any IV drug use. She states she has abused Vicodin in the past. She is currently living with her daughter. There is a cat in the home. No recent travel. Past Drug Use History: Marijuana, Methamphetamine, None Reported - Past Family History Mother Family Medical History: No Reported History Medications and Allergies Home Medications Medication Instructions Recorded Confirmed Type Sertraline HCl [Zoloft] 200 mg PO DAILY 11/16/18 01/21/20 History ALPRAZolam [Xanax] 0.5 mg PO HS 12/16/18 01/21/20 History atenoloL [Tenormin] 50 mg PO DAILY 05/30/19 01/21/20 History Acetaminophen Tab [Tylenol Tab] 500 - 1,000 mg PO Q6H PRN 01/21/20 01/21/20 History Fluticasone Nasal [place] [Flonase 2 spr EA NOSTRIL BID PRN 01/21/20 01/21/20 History Nasal [place]] Ibuprofen [Motrin Ib] 200 - 400 mg PO Q6H PRN 01/21/20 01/21/20 History Loratadine [Claritin] 10 mg PO DAILY PRN 01/21/20 01/21/20 History busPIRone HCL [Buspar] 30 mg PO BID 01/21/20 01/21/20 History Allergies Allergy/AdvReac Type Severity Reaction Status Date / Time Sulfa (Sulfonamide Allergy Itching Verified 01/21/20 20:22 Antibiotics) sulfamethoxazole Allergy Rash/Hives Verified 01/21/20 20:22 [From Bactrim] trimethoprim [From Bactrim] Allergy Rash/Hives Verified 01/21/20 20:22 Physical Exam Vitals: Vital Signs Temp Pulse Resp BP Pulse Ox 01/22/20 09:30 135/89 01/22/20 08:53 105 H 40 H 160/100 100 01/22/20 08:50 103 H 40 H 154/94 98 01/22/20 08:45 100 F H 102 H 28 H 148/98 99 01/22/20 08:30 100 F H 106 H 32 H 126/94 85 L 01/22/20 04:00 98.9 F 87 40 H 131/83 96 01/22/20 00:00 99.2 F 96 41 H 116/71 96 01/21/20 20:00 99.1 F 93 38 H 132/90 97 01/21/20 19:40 99.1 F 93 30 H 132/90 97 Intake and Output 01/21/20 01/22/20 01/22/20 22:59 06:59 14:59 Intake Total 2250 Output Total 1050 Balance -1050 2250 Intake: Intake, IV Titration 2250 Amount Sodium Chloride 0.9% 1, 500 000 ml @ 100 mls/hr IV . Q10H CATHY Rx#:[id number] Vancomycin 1,750 mg In 1750 Sodium Chloride 0.9% 500 ml 500 ml @ 167 mls/hr IVPB Q12H CATHY Rx#: [id number] Output: Urine 1050 Uretheral (Hdz) 450 Other: Voiding Method Indwelling Catheter Toilet # Voids 3 Weight 113.9 kg 113.9 kg Results CBC & Chem 7: 01/22/20 21:03 01/22/20 21:03 Labs: Abnormal Lab Results - Last 24 Hours (Table) 01/21/20 01/21/20 01/22/20 Range/Units 21:53 21:53 07:22 WBC 12.5 H 11.8 H (3.8-10.6) k/uL RBC 3.58 L 3.57 L (3.80-5.40) m/uL Hgb 10.3 L 10.3 L (11.4-16.0) gm/dL Hct 32.6 L 32.4 L (34.0-46.0) % ABG O2 Saturation (94-97) % Potassium 3.2 L (3.5-5.1) mmol/L Chloride 113 H (98-107) mmol/L BUN 4 L (7-17) mg/dL Glucose 138 H (74-99) mg/dL POC Glucose (mg/dL) (75-99) mg/dL Calcium 8.1 L (8.4-10.2) mg/dL AST 37 H (14-36) U/L Total Protein 5.2 L (6.3-8.2) g/dL Albumin 2.9 L (3.5-5.0) g/dL 01/22/20 01/22/20 01/22/20 Range/Units 07:22 09:00 09:01 WBC (3.8-10.6) k/uL RBC (3.80-5.40) m/uL Hgb (11.4-16.0) gm/dL Hct (34.0-46.0) % ABG O2 Saturation 98.3 H (94-97) % Potassium 3.4 L (3.5-5.1) mmol/L Chloride 114 H (98-107) mmol/L BUN <2 L (7-17) mg/dL Glucose 113 H (74-99) mg/dL POC Glucose (mg/dL) 126 H (75-99) mg/dL Calcium 7.8 L (8.4-10.2) mg/dL AST (14-36) U/L Total Protein (6.3-8.2) g/dL Albumin (3.5-5.0) g/dL Thrombosis Risk Factor Assmnt - Choose All That Apply Any of the Below Risk Factors Present?: Yes Each Factor Represents 1 point: Age 41-60 years, Serious lung disease incl. pn eumonia (< 1month), Swollen legs (current) Other Risk Factors: No Other congenital or acquired thrombophilia - If yes, enter type in comment: No Thrombosis Risk Factor Assessment Total Risk Factor Score: 3 Thrombosis Risk Factor Assessment Level: Moderate Risk
[2020-01-22] MEDS: POTASSIUM CHLORIDE 20 MEQ in WATER FOR INJECTION 1 100ML.BAG IVPB SCH (23:13)
[2020-01-22] MEDS ORDERED: ONDANSETRON 4 MG/2 ML VIAL IVP STA (23:50)
[2020-01-22] MEDS ORDERED: ONDANSETRON 4 MG/2 ML VIAL ONE (23:51)
[2020-01-23] MEDS: POTASSIUM CHLORIDE 20 MEQ in WATER FOR INJECTION 1 100ML.BAG IVPB SCH ×3 (01:52→09:33)
[2020-01-23 02:15] LABS: Hemoglobin A1C 5.2 % (4.0-6.0)
[2020-01-23] MEDS ORDERED: ACETAMINOPHEN IV (For NPO) 1,000 MG in EMPTY BAG 1 BAG IVPB STA (03:49)
[2020-01-23 04:01] LABS: Appearance,Urine Clear (Clear); Bacteria,Urine Occasional /hpf; Bilirubin,Urine Negative (Negative); Blood,Urine Moderate (Negative); Color,Urine Yellow; Glucose,Urine (UA) Negative (Negative); Ketones,Urine 1+ (Negative); Leukocyte Esterase,Urine Negative (Negative); Mucus,Urine Occasional /hpf; Nitrite,Urine Negative (Negative); Protein,Urine Trace (Negative); RBC,Urine 87 /hpf (0-5); Urobilinogen,Urine <2.0 mg/dL (<2.0); WBC,Urine 2 /hpf (0-5)
[2020-01-23 05:38] LABS: Basophils % (A) 0 %; Eosinophils # (A) 0.1 k/uL (0-0.7); Eosinophils % (A) 1 %; HCT 33.3 % (34.0-46.0); Lymphocytes # (A) 0.9 k/uL (1.0-4.8); Lymphocytes % (A) 6 %; MCH 29.9 pg (25.0-35.0); MCHC 32.9 g/dL (31.0-37.0); MCV 90.9 fL (80.0-100.0); Mean Platelet Volume 7.8; Monocytes # (A) 0.5 k/uL (0-1.0); Monocytes % (A) 3 %; Neutrophils # (A) 15.4 k/uL (1.3-7.7); Neutrophils % (A) 90 %; Platelet Count 237 k/uL (150-450); RBC 3.66 m/uL (3.80-5.40); RDW 15.3 % (11.5-15.5)
[2020-01-23 05:39] LABS: African American GFR (CKD) >90 (>60 ml/min/1.73 sqM); Anion Gap 5 mmol/L; Blood Urea Nitrogen 3 mg/dL (7-17); Calcium 7.7 mg/dL (8.4-10.2); Carbon Dioxide 23 mmol/L (22-30); Chloride 113 mmol/L (98-107); Cholesterol 189 mg/dL (<200); Glucose 111 mg/dL (74-99); HDL Cholesterol 36 mg/dL (40-60); LDL Cholesterol,Calculated 126 mg/dL (0-99); Non-African American GFR(CKD) >90 (>60 ml/min/1.73 sqM); Potassium 3.5 mmol/L (3.5-5.1); Sodium 141 mmol/L (137-145); Triglycerides 137 mg/dL (<150)
--- NOTE | 2020-01-23 05:55 | XR ---
EXAMINATION TYPE: XR chest 1V DATE OF EXAM: 01/23/2020 HISTORY: Shortness of breath. REFERENCE: Previous study dated 01/22/2020. FINDINGS: There is worsening opacity of both hemithoraces. Heart size is obscured. CP angles are obsc ured. IMPRESSION: MARKED WORSENING IN THE PATIENT'S BILATERAL INFILTRATES.
[2020-01-23 06:02] LABS: ABG Base Excess -5.2 mmol/L; ABG HCO3 20 mmol/L (21-25); ABG Oxygen Saturation 87.3 % (94-97); ABG PCO2 35 mmHg (35-45); ABG PH 7.37 (7.35-7.45); ABG TCO2 21 mmol/L (19-24); Allen Test Performed? Yes
[2020-01-23 06:05] LABS: ABG PO2 52 mmHg (83-108)
[2020-01-23] MEDS ORDERED: propofoL 100 ML IV ONE ×2 (06:16→07:59)
[2020-01-23] MEDS ORDERED: CHLORHEXIDINE GLUCONATE 15 ML CUP MUCOUS MEM ONE (06:46)
--- NOTE | 2020-01-23 07:08 | XR ---
EXAMINATION TYPE: XR chest 1V portable DATE OF EXAM: 01/23/2020 HISTORY: Post Intubation. REFERENCE: Previous study dated 01/23/2020. FINDINGS: The patient has been intubated. ET tube is in good position with the tip approximately 5 cm from the shaw. There is improved aeration in the upper lobes bilaterally. There is continuing bibasilar airspace dis ease. Heart size is obscured. I cannot exclude effusions. IMPRESSION: SATISFACTORY ET TUBE PLACEMENT.
[2020-01-23] MEDS ORDERED: Potassium Replacement Protocol 1 EACH MISC MISCELLANE PRN (07:22)
[2020-01-23 07:25] LABS: ABG HCO3 20 mmol/L (21-25); ABG PCO2 42 mmHg (35-45); ABG PH 7.28 (7.35-7.45); ABG PO2 89 mmHg (83-108); ABG TCO2 21 mmol/L (19-24); Allen Test Performed? Yes
[2020-01-23] MEDS ORDERED: CISATRACURIUM 2 MG/ML 5 ML VIAL IV ONE (07:29)
[2020-01-23] MEDS ORDERED: HYDROmorphone 1 MG/ML 1 ML SYRINGE IVP PRN (07:32)
[2020-01-23] MEDS: IPRATROPIUM-ALBUTEROL 3 ML NEB INHALATION SCH ×5 (07:57→23:31)
[2020-01-23] MEDS: CISATRACURIUM 200 MG in SODIUM CHLORIDE 0.9% 180 ML IV SCH ×2 (08:00→22:51)
[2020-01-23] MEDS ORDERED: INSULIN ASPART (NovoLOG) 100 UNIT/ML VIAL SQ SCH (09:00)
[2020-01-23 09:16] LABS: ABG Base Excess -6.6 mmol/L; ABG HCO3 23 mmol/L (21-25); ABG Oxygen Saturation 94.5 % (94-97); ABG PCO2 67 mmHg (35-45); ABG PO2 93 mmHg (83-108); ABG TCO2 25 mmol/L (19-24)
[2020-01-23 09:18] LABS: ABG PH 7.14 (7.35-7.45); Allen Test Performed? no
[2020-01-23] MEDS: ARTIFICIAL TEARS-HYPROMELLOSE DROPS 15 ML BTL BOTH EYES SCH ×4 (09:22→20:03)
[2020-01-23] MEDS: atenoloL 50 MG TAB PO SCH (09:32)
[2020-01-23] MEDS: SERTRALINE 100 MG TAB PO SCH (09:33)
[2020-01-23] MEDS: busPIRone HCl 10 MG TAB PO SCH ×2 (09:33→20:23)
[2020-01-23] MEDS: ENOXAPARIN 40 MG/0.4 ML SYRINGE SQ SCH (09:33)
[2020-01-23] MEDS: CHLORHEXIDINE GLUCONATE 15 ML CUP MUCOUS MEM SCH ×2 (09:33→20:23)
[2020-01-23] MEDS: NICOTINE 21MG/24HR PATCH TRANSDERM SCH (09:33)
[2020-01-23] MEDS: ASPIRIN 325 MG TAB PO SCH (09:33)
[2020-01-23] MEDS: CEFEPIME 1 GM in SODIUM CHLORIDE 0.9% 50 ML IVPB SCH ×2 (10:25→20:24)
--- NOTE | 2020-01-23 10:41 | PN ---
PROGRESS NOTE PULMONARY/CRITICAL CARE PROGRESS NOTE: DATE OF SERVICE: January 23, 2020 Critical care time: 33 minutes. This is a 44-year-old female who was transferred from [facility] on the . Over there, she was intubated for a couple days for respiratory failure and drug overdose. She apparently overdosed on amphetamines, methamphetamines, benzodiazepines and baclofen. She was extubated by my partner and transferred here for psychiatric consultation. The psychiatrist did see the patient. They recommended inpatient psychiatry when she was medically cleared. Anyway, over the course of the last 24 hours, her respiratory status declined. We moved her to the ICU. We attempted high-flow oxygen, AIRVO, and BiPAP and this morning she was breathing about 50 times a minute. We went ahead and intubated the patient for airway protection and control. Currently, she is on VAC, rate 26, tidal volume 350, FiO2 100%, PEEP of 5. Blood gases show a mild metabolic acidosis. PO2 is 89, pCO2 of 42, pH of 7.28. She is getting saline at 100 mL an hour and propofol at 70 mics per kg per minute. She is going to get 10 mg of Nimbex IV push and then a drip of of Cisatracurium at 2 mcg/kg per minute with a peripheral nerve stimulator and train of [address] also [address] an art line. Her chest x-ray does show diffuse bilateral infiltrates consistent with acute lung injury/possible acute respiratory distress syndrome. PHYSICAL EXAMINATION: VITAL SIGNS: Current vital signs are reviewed. Temperature is 99.8, heart rate 117, respiratory rate was 43. Prior to paralysis, blood pressure 136/77, mean 96 and saturations are 95% on 100% FiO2. Repeat gases will be done post paralysis and control. HEENT: Examination is grossly unremarkable. She has an orally placed endotracheal tube and NG tube. NECK: Supple. Full range of motion. No adenopathy. Neck veins are flat. CARDIOVASCULAR: Examination reveals regular rhythm and rate. She is tachycardic. Heart rate about 117. She is in sinus tachycardia. LUNGS: Diffuse rhonchi. Breath sounds equal. No wheezes. No crackles. ABDOMEN: Soft. No bowel sounds. EXTREMITIES are intact. No cyanosis, clubbing, or edema. SKIN: Without rash. NEUROLOGIC: Examination could not be adequately assessed as she is currently sedated and paralyzed. LABORATORY DATA: [place] [address], hemoglobin 11, hematocrit 33.3, platelet count 337,000. Blood gases have been noted. Prior blood gases showed a pO2 of 52, pCO2 of 35, and a pH of 7.37. Sodium 141, potassium 3.5, chloride 113. CO2 23. Anion gap is 5. BUN and creatinine were 3 and 0.49. Urine shows shows trace protein, moderate blood, nitrite negative, leukocyte esterase negative and 87 RBCs. Microbiology thus far is negative. Chest x-ray shows diffuse bilateral infiltrates. Endotracheal tube is in good position. CURRENT MEDICATIONS: Reviewed. She is currently on Tylenol, Artificial Tears, aspirin, Tenormin, BuSpar, cefepime, chlorhexidine, Nimbex, Lovenox, Flonase nasal spray, Dilaudid, ibuprofen, DuoNeb, Claritin, lorazepam, melatonin, Narcan, nicotine patch, potassium replacement, Zoloft, vancomycin. ASSESSMENT: 1. Acute hypoxemic respiratory failure, likely related to polysubstance abuse and drug overdose including amphetamines, methamphetamines, and possibly baclofen and benzodiazepine requiring intubation on the and subsequent extubation on the . 2. Status post extubation, acute respiratory failure with diffuse infiltrates, possibly consistent with acute respiratory distress syndrome, requiring re- intubation on January 23, 2020 with both sedation and paralysis. 3. Prior episodes of attempted suicide with drug overdoses, requiring intubation and mechanical ventilation, with one episode of long-term intubation requiring tracheostomy tube and PEG tube placement. 4. Possible post extubation aspiration on January 20. 5. History of acute kidney injury with prior history of urinary tract infection. 6. History of depression. 7. Prior history of methicillin-resistant Staph aureus skin infections. 8. Metabolic encephalopathy. 9. Obesity. PLAN: We will place an art line in this patient. She currently has a central line. The patient will have a repeat blood gas after paralysis. We will also add tube feeds. We added DuoNeb q.4 around the clock. We also will start her on Nimbex 10 mg IV push and then a drip at 2 mcg/kg per minute with train of 4 monitoring with a peripheral nerve stimulator. Overall prognosis remains guarded. We will continue with daily labs and x- rays. Continue with the antibiotics for now. The patient will be morales cultured. Additional recommendations and suggestions are forthcoming. Prognosis is guarded. Critical care time more than 30 minutes. MMODL / IJN: [id number] / MTDD
[2020-01-23] MEDS ORDERED: PROPOFOL 10 MG/ML 20 ML VIAL IV ONE (11:00)
[2020-01-23] MEDS ORDERED: SUCCINYLCHOLINE CHLORIDE VIAL 200 MG/10 ML VIAL IV ONE (11:00)
[2020-01-23 12:16] LABS: Glucose,Whole Blood 102 mg/dL (75-99)
[2020-01-23] MEDS: VANCOMYCIN 1,750 MG in SODIUM CHLORIDE 0.9% 500 ML 500 ML IVPB SCH ×2 (12:21→21:48)
[2020-01-23] MEDS: INSULIN ASPART (NovoLOG) 100 UNIT/ML VIAL SQ SCH ×2 (12:22→18:31)
[2020-01-23] MEDS ORDERED: SODIUM CHLORIDE 0.9% 1,000 ML IV ONE ×2 (13:58→15:03)
[2020-01-23] MEDS: SODIUM CHLORIDE 0.9% 1,000 ML IV SCH ×2 (14:10→23:11)
--- NOTE | 2020-01-23 14:32 | PCN ---
PROCEDURE NOTE PROCEDURE PERFORMED: Left dorsalis pedis arterial line. ARTERIAL LINE PLACEMENT: Indications: Hemodynamic monitoring. A time-out was completed verifying correct patient, procedure, site, positioning, and implant(s) or special equipment if applicable. Ganesh's test was performed to ensure adequate perfusion. The patient left groin was prepped and draped in sterile fashion. 1% Lidocaine was used to anesthetize the area. An 18G Arrow arterial line was introduced into the femoral artery. The catheter was threaded over the guide wire and the needle was removed with appropriate pulsatile blood return. Blood loss was minimal. The catheter was then sutured in place to the skin and a sterile dressing applied by the nurse. Perfusion to the extremity distal to the point of catheter insertion was checked and found to be adequate. There was blood return and waveform. The patient tolerated the procedure well and there were no complications. ICE CREAM SHOP ASSOCIATE: Dr. Devine and Dr. Ayala. JOSELIN / CALLIN: [id number] /
--- NOTE | 2020-01-23 16:50 | P.PN ---
Progress Note - Text Progress Note Date: 01/23/20 Chief Complaint: Short of breath cough History of presenting complaint: This is a 44-year-old patient who follows that MAGY Ramos. Patient had initially presented to [facility] with altered mental status. She had taken methamphetamines and also overdose of baclofen. She went into respiratory distress and had to be intubated. She was extubated the following morning that is yesterday. Was short of breath. Somewhat agitated. Requiring 2 L of oxygen . I did talk to the patient about getting transferred to [facility] on for psychiatry evaluation but patient refuses. Patient was here in the hospital in May 2019 felt be possible overdose of calcium channel blockers or Atarax. Patient to hospital for a few days. Has underlying depression and anxiety. I had to certify the patient. She was very anxious and depressed. And patient was transferred over here to [facility] Patient had developed a fever felt to have aspiration pneumonia and was started on vancomycin and Zosyn. An bronchodilators. Patient had previous suicide attempts Today-patient went into respiratory distress yesterday evening and had to be intubated. Currently in ICU. Sedated. Drips include propofol and Nimbex. FiO2 60% and a PEEP of 10. Has NG tube. Sedated. Progress review of systems-patient intubated Active Medications Acetaminophen (Tylenol Tab) 1,000 mg PO Q6H PRN PRN Reason: Pain Last Admin: 01/22/20 13:20 Dose: 1,000 mg Documented by: Albuterol/Ipratropium (Duoneb 0.5 Mg-3 Mg/3 Ml Soln) 3 ml INHALATION RT-Q4H [facility] Last Admin: 01/23/20 15:19 Dose: 3 ml Documented by: Artificial Tears (Artificial Tear Drops) 2 drops BOTH EYES Q4HR [facility] Last Admin: 01/23/20 15:40 Dose: 2 drops Documented by: Aspirin (Aspirin) 325 mg PO DAILY [facility] Last Admin: 01/23/20 09:33 Dose: 325 mg Documented by: Atenolol (Tenormin) 50 mg PO DAILY [facility] Last Admin: 01/23/20 09:32 Dose: Not Given Documented by: Buspirone HCl (Buspar) 30 mg PO BID [facility] Last Admin: 01/23/20 09:33 Dose: Not Given Documented by: Chlorhexidine Gluconate (Peridex) 15 ml MUCOUS MEM BID [facility] Last Admin: 01/23/20 09:33 Dose: 15 ml Documented by: Enoxaparin Sodium (Lovenox) 40 mg SQ DAILY [facility] Last Admin: 01/23/20 09:33 Dose: 40 mg Documented by: Fluticasone Propionate (Flonase Nasal [place]) 2 spray EA NOSTRIL BID PRN PRN Reason: Allergy Symptoms Last Admin: 01/22/20 02:55 Dose: 2 spray Documented by: Hydromorphone HCl (Dilaudid) 1 mg IVP Q3H PRN PRN Reason: Pain Cefepime HCl 1 gm/ Sodium (Chloride) 50 mls @ 12.5 mls/hr IVPB Q12HR [facility] Last Admin: 01/23/20 10:25 Dose: 12.5 mls/hr Documented by: Sodium Chloride (Saline 0.9%) 1,000 mls @ 100 mls/hr IV .Q10H [facility] Last Admin: 01/23/20 14:10 Dose: 100 mls/hr Documented by: Vancomycin HCl 1,750 mg/ (Sodium Chloride) 500 mls @ 167 mls/hr IVPB Q12H [facility] Last Admin: 01/23/20 12:21 Dose: 167 mls/hr Documented by: Cisatracurium Besylate 200 mg/ (Sodium Chloride) 200 mls @ 13.92 mls/hr IV .[id number] [facility]; Protocol Last Titration: 01/23/20 10:23 Dose: 1.5 mcg/kg/min, 10.44 mls/hr Documented by: Propofol 1,000 mg/ IV Solution 100 mls @ 0 mls/hr IV .Q0M [facility]; Protocol Last Admin: 01/23/20 15:40 Dose: 50 mcg/kg/min, 34.8 mls/hr Documented by: Ibuprofen (Advil) 400 mg PO Q6H PRN PRN Reason: Pain Last Admin: 01/22/20 13:18 Dose: 400 mg Documented by: Insulin Aspart (Novolog) 0 unit SQ Q6H [facility]; Protocol Last Admin: 01/23/20 12:22 Dose: Not Given Documented by: Loratadine (Claritin) 10 mg PO DAILY PRN PRN Reason: Allergy Symptoms Last Admin: 01/22/20 02:54 Dose: 10 mg Documented by: Lorazepam (Ativan) 1 mg IV HS [facility] Last Admin: 01/22/20 20:26 Dose: 1 mg Documented by: Melatonin (Melatonin) 5 mg PO HS [facility] Last Admin: 01/22/20 20:26 Dose: 5 mg Documented by: Miscellaneous Information (Vancomycin Trough Due) 0 each MISCELLANE DIRECTED ONE Stop: 01/23/20 21:01 Miscellaneous Information (Potassium Per Protocol) 1 each MISCELLANE DAILY PRN; Protocol PRN Reason: Per Protocol Naloxone HCl (Narcan) 0.2 mg IV Q2M PRN PRN Reason: Opioid Reversal Nicotine (Habitrol 21mg/24hr Patch) 1 patch TRANSDERM DAILY [facility] Last Admin: 01/23/20 09:33 Dose: 1 patch Documented by: Sertraline HCl (Zoloft) 200 mg PO DAILY [facility] Last Admin: 01/23/20 09:33 Dose: Not Given Documented by: Physical examination: VITAL SIGNS: 98.3, 90, 32, 86/49, 91% on the ventilator GENERAL: Laying in bed, intubated. EYES: Pupils equal. Conjunctiva normal. HEENT: External appearance of nose and ears normal, oral cavity-intratracheal tube, or T-tube NECK: JVD not raised; masses not palpable. HEART: First and second heart sounds are normal; no edema. LUNGS: Respiratory rate increased, decreased breath sounds ABDOMEN: Soft, nontender, liver spleen not palpable, no masses palpable. PSYCH: Patient sedated INVESTIGATIONS, reviewed in the clinical context: White count 17 hemoglobin 11 potassium 3.5 Chest x-ray film personally reviewed by me-ET tube, bilateral infiltrates Previous testing White count 12.5 hemoglobin 10.3 potassium 3.2 creatinine 0.61 procalcitonin 0.12 Chest x-ray film personally reviewed by me-bilateral infiltrates Assessment: -Bilateral pneumonia suspected gram-negative organism and aspiration pneumonia causing severe sepsis-worsening -Acute delirium on the metabolic encephalopathy from the same -Methamphetamine use and overdose of baclofen -Possible bipolar disorder with depression and anxiety -Acute hypoxic yesterday failure from above,-requiring ventilator assistance -Morbid obesity BMI 40.5 -Hypoalbuminemia-acute phase reactant -Hypo kalemia Plan: on vancomycin and cefepime. Ventilator support. Patient also on IV propofol and Nimbex. IV fluids. Prognosis guarded. Follows with funeral professional.
--- NOTE | 2020-01-23 17:57 | XR ---
EXAMINATION TYPE: XR abdomen 1V DATE OF EXAM: 01/23/2020 COMPARISON: NONE HISTORY: Abdominal pain TECHNIQUE: 2 views supine FINDINGS: There is a right-sided femoral catheter with the tip over the right mid pelvis. There is no sign of intestinal obstruction or pneumoperitoneum. There is IUD noted in the uterus. There is nasog astric tube in the stomach. There is possible 8 mm calculus in the left kidney. IMPRESSION: Nonacute abdomen. Possible left renal calculus.
[2020-01-23 18:32] LABS: Glucose,Whole Blood 95 mg/dL (75-99)
[2020-01-23] MEDS ORDERED: VANCOMYCIN TROUGH DUE 1 EACH MISC MISCELLANE ONE (21:00)
[2020-01-23] MEDS: MELATONIN 5 MG TABLET PO SCH (21:01)
[2020-01-23] MEDS: LORazepam 2 MG/ML INJ IV SCH (21:08)
[2020-01-24 00:11] LABS: Glucose,Whole Blood 71 mg/dL (75-99)
[2020-01-24 00:11] LABS: Glucose,Whole Blood 86 mg/dL (75-99)
[2020-01-24] MEDS: INSULIN ASPART (NovoLOG) 100 UNIT/ML VIAL SQ SCH ×4 (00:30→18:15)
[2020-01-24] MEDS: ARTIFICIAL TEARS-HYPROMELLOSE DROPS 15 ML BTL BOTH EYES SCH ×6 (00:31→20:28)
[2020-01-24 03:41] LABS: Basophils % (A) 0 %; Eosinophils # (A) 0.1 k/uL (0-0.7); Eosinophils % (A) 2 %; HCT 27.1 % (34.0-46.0); Hypochromasia Slight; Lymphocytes # (A) 1.6 k/uL (1.0-4.8); Lymphocytes % (A) 22 %; MCH 28.9 pg (25.0-35.0); MCHC 31.1 g/dL (31.0-37.0); MCV 92.8 fL (80.0-100.0); Mean Platelet Volume 8.9; Monocytes # (A) 0.2 k/uL (0-1.0); Monocytes % (A) 3 %; Neutrophils # (A) 5.2 k/uL (1.3-7.7); Neutrophils % (A) 72 %; Platelet Count 166 k/uL (150-450); RBC 2.92 m/uL (3.80-5.40); RDW 15.6 % (11.5-15.5); WBC 7.3 k/uL (3.8-10.6)
[2020-01-24] MEDS: IPRATROPIUM-ALBUTEROL 3 ML NEB INHALATION SCH ×6 (03:45→23:32)
[2020-01-24 03:46] LABS: HGB 8.4 gm/dL (11.4-16.0)
[2020-01-24 03:49] LABS: African American GFR (CKD) >90 (>60 ml/min/1.73 sqM); Anion Gap 2 mmol/L; Blood Urea Nitrogen 10 mg/dL (7-17); Carbon Dioxide 27 mmol/L (22-30); Chloride 116 mmol/L (98-107); Glucose 90 mg/dL (74-99); Non-African American GFR(CKD) >90 (>60 ml/min/1.73 sqM); Potassium 3.2 mmol/L (3.5-5.1); Sodium 145 mmol/L (137-145)
[2020-01-24 03:56] LABS: Calcium 6.5 mg/dL (8.4-10.2)
[2020-01-24] MEDS ORDERED: Potassium Replacement Protocol 1 EACH MISC MISCELLANE PRN (04:36)
[2020-01-24 05:10] LABS: ABG Base Excess -1.4 mmol/L; ABG HCO3 25 mmol/L (21-25); ABG Oxygen Saturation 94.9 % (94-97); ABG PCO2 52 mmHg (35-45); ABG PH 7.29 (7.35-7.45); ABG PO2 79 mmHg (83-108); ABG TCO2 27 mmol/L (19-24)
[2020-01-24] MEDS: POTASSIUM CHLORIDE 20 MEQ in WATER FOR INJECTION 1 100ML.BAG IVPB SCH ×4 (05:31→20:35)
[2020-01-24 06:38] LABS: Glucose,Whole Blood 74 mg/dL (75-99)
--- NOTE | 2020-01-24 06:55 | XR ---
EXAMINATION TYPE: XR chest 1V portable DATE OF EXAM: 01/24/2020 HISTORY: Tube placement. REFERENCE: Previous study dated 01/23/2020. FINDINGS: The patient's ET tube remains in place in good position. An NG tube has been passed. Its ti p is in the stomach. There is bilateral airspace disease. This may have improved slightly. Heart size is obscured. There i s blunting of both CP angles. I could not exclude small effusions. IMPRESSION: OVERALL, THERE IS IMPROVED AERATION OF BOTH LUNGS.
[2020-01-24] MEDS: atenoloL 50 MG TAB PO SCH (07:51)
[2020-01-24] MEDS: busPIRone HCl 10 MG TAB PO SCH ×2 (07:51→20:30)
[2020-01-24] MEDS: SERTRALINE 100 MG TAB PO SCH (07:51)
[2020-01-24] MEDS: ASPIRIN 325 MG TAB PO SCH (07:51)
[2020-01-24] MEDS: CEFEPIME 1 GM in SODIUM CHLORIDE 0.9% 50 ML IVPB SCH ×2 (07:52→20:35)
[2020-01-24] MEDS: ENOXAPARIN 40 MG/0.4 ML SYRINGE SQ SCH (09:16)
[2020-01-24] MEDS: SODIUM CHLORIDE 0.9% 1,000 ML IV SCH ×2 (09:34→20:28)
[2020-01-24] MEDS: VANCOMYCIN 1,750 MG in SODIUM CHLORIDE 0.9% 500 ML 500 ML IVPB SCH ×2 (09:34→22:18)
[2020-01-24] MEDS: CHLORHEXIDINE GLUCONATE 15 ML CUP MUCOUS MEM SCH ×2 (09:34→20:29)
[2020-01-24] MEDS: NICOTINE 21MG/24HR PATCH TRANSDERM SCH (09:34)
[2020-01-24 12:01] LABS: Glucose,Whole Blood 75 mg/dL (75-99)
[2020-01-24] MEDS: METOCLOPRAMIDE 5 MG/ML 2 ML VIAL IVP SCH ×2 (12:40→18:16)
--- NOTE | 2020-01-24 14:03 | PN ---
PROGRESS NOTE PULMONARY/CRITICAL CARE PROGRESS NOTE: DATE OF SERVICE: 01/24/2020 Critical care time 34 minutes. This is a 44-year-old female who was transferred from [facility] on January 20. She was intubated over there for respiratory failure thought to be related to drug overdose with methamphetamines, amphetamines, benzodiazepines, and baclofen. I believe she was extubated on the as well. She was sent here primarily for a psychiatry consultation which did take place. Anyway, the patient then developed worsening respiratory status characterized by hypoxemic respiratory failure. She was transferred to the ICU for further monitoring. We attempted high-flow oxygen, AIRVO, and BiPAP without success and because the patient was breathing at between 45 and 50 times a minute, she was intubated on January 23, 2020. Currently, the patient is on the volume assist-control mode, rate of 32, tidal volume 350, FiO2 70% to be dropped down to 60% and a PEEP of 10 to be increased to 13. Current blood gases show pO2 of 79, pCO2 of 52, and a pH of 7.29. The patient is getting saline at 100 mL an hour, propofol at 50 mcg/kg per minute, cisatracurium or Nimbex at 1.5 mcg/kg per minute and tube feeds are currently on hold because of increased GI output. Currently, the patient is resting comfortably, sedated and paralyzed. PHYSICAL EXAMINATION: VITAL SIGNS: Current vital signs show a temperature of 98.7, heart rate about 115, respiratory rate 32, blood pressure 101/66, mean 77, saturations are 99%. Appears in no acute distress, currently sedated and paralyzed. HEENT: Examination is grossly unremarkable. There is an orally placed endotracheal tube and NG tube. NECK: Supple. Full range of motion. No adenopathy. Neck veins are flat. CARDIOVASCULAR: Examination reveals tachycardia. Heart rate about 105. It is regular. S1, S2 normal. Heart sounds are distant. LUNGS: Reveal diffuse bilateral rhonchi. No wheezes or crackles. Breath sounds equal. ABDOMEN: Soft. Bowel sounds are noted. Abdomen is mildly distended. EXTREMITIES are intact. Minimal edema. SKIN: Without rash. NEUROLOGIC: Examination could not be assessed as she is currently sedated and paralyzed. LABORATORY DATA: Reviewed. White count 7.3, hemoglobin 8.4, hematocrit 27.1, platelet count 166,000. Blood gases as mentioned show a pO2 of 79, pCO2 of 52, and a pH 7.39. Sodium 145, potassium 3.2, chloride 116, CO2 27, anion gap is 2. BUN and creatinine were 10 and 0.55. Microbiology is currently negative. I did tell Rochelle, the nurse, to re-culture the patient. Chest x-ray shows improved aeration in both lungs. CURRENT MEDICATIONS: Reviewed. She is currently on Tylenol, Artificial Tears, aspirin, Tenormin, BuSpar, cefepime, chlorhexidine, Nimbex, Lovenox, Dilaudid, insulin, DuoNeb, Reglan, Narcan, nicotine patch, Protonix, potassium, magnesium, phosphorus replacement; propofol, Zoloft, and vancomycin. ASSESSMENT: 1. Acute respiratory failure likely related to polysubstance abuse and drug overdose including methamphetamines, amphetamines, Baclofen and benzodiazepines, at [facility], which required intubation on 01/18 and subsequent extubation on 01/20. 2. Post extubation acute respiratory failure with diffuse bilateral infiltrates, which may relate to underlying aspiration, requiring re-intubation on January 22 as well as sedation and paralysis. 3. Multiple prior episodes of suicide attempt with drug overdoses, and on one occasion, long-term mechanical ventilation and subsequent tracheostomy and PEG tube placement. 4. History of acute kidney injury. 5. History of urinary tract infection. 6. History of depression. 7. Prior history of methicillin-resistant Staph aureus skin infection. 8. Metabolic encephalopathy. 9. Obesity. PLAN: The patient's FiO2 is weaned down further from 70 to 60% with increase in PEEP from 10 to 13. We will continue to try to edge down the FiO2. We will make sure the patient is re-cultured. Will add Reglan for her gastroparesis. The patient is maintained on propofol and Nimbex. Additional recommendations and suggestions are forthcoming. The patient's chest x-ray is somewhat improved. We will continue to follow. Prognosis guarded. Critical care time 34 minutes. MMODL / IJN: [id number] /
[2020-01-24 15:42] LABS: Appearance,Urine Clear (Clear); Bacteria,Urine Occasional /hpf; Bilirubin,Urine Negative (Negative); Blood,Urine Trace (Negative); Color,Urine Yellow; Glucose,Urine (UA) Negative (Negative); Ketones,Urine Negative (Negative); Leukocyte Esterase,Urine Negative (Negative); Mucus,Urine Rare /hpf; Nitrite,Urine Negative (Negative); Protein,Urine 1+ (Negative); RBC,Urine 35 /hpf (0-5); Specific Gravity,Urine 1.014 (1.001-1.035); Squamous Epithelial Cell,Urine <1 /hpf (0-4); Urobilinogen,Urine <2.0 mg/dL (<2.0); WBC,Urine 4 /hpf (0-5)
[2020-01-24] MEDS: CISATRACURIUM 200 MG in SODIUM CHLORIDE 0.9% 180 ML IV SCH (16:27)
[2020-01-24 18:01] LABS: Glucose,Whole Blood 82 mg/dL (75-99)
[2020-01-24] MEDS: PANTOPRAZOLE 40 MG/10 ML VIAL IVP SCH (20:29)
--- NOTE | 2020-01-24 21:39 | P.PN ---
Progress Note - Text Progress Note Date: 01/24/20 Chief Complaint: Short of breath cough History of presenting complaint: This is a 44-year-old patient who follows that MAGY Ramos. Patient had initially presented to [facility] with altered mental status. She had taken methamphetamines and also overdose of baclofen. She went into respiratory distress and had to be intubated. She was extubated the following morning that is yesterday. Was short of breath. Somewhat agitated. Requiring 2 L of oxygen . I did talk to the patient about getting transferred to [facility] on for psychiatry evaluation but patient refuses. Patient was here in the hospital in May 2019 felt be possible overdose of calcium channel blockers or Atarax. Patient to hospital for a few days. Has underlying depression and anxiety. I had to certify the patient. She was very anxious and depressed. And patient was transferred over here to [facility] Patient had developed a fever felt to have aspiration pneumonia and was started on vancomycin and Zosyn. An bronchodilators. Patient had previous suicide attempts. Patient related to respiratory distress and was intubated. [id number]. FiO2 40 and a PEEP of 13. Telemetry shows sinus rhythm. Drips include propofol and Nimbex. Minimal endotracheal tube secretions. Progress review of systems-patient intubated Active Medications Acetaminophen (Tylenol Tab) 1,000 mg PO Q6H PRN PRN Reason: Pain Last Admin: 01/22/20 13:20 Dose: 1,000 mg Documented by: Albuterol/Ipratropium (Duoneb 0.5 Mg-3 Mg/3 Ml Soln) 3 ml INHALATION RT-Q4H [facility] Last Admin: 01/24/20 19:41 Dose: 3 ml Documented by: Artificial Tears (Artificial Tear Drops) 2 drops BOTH EYES Q4HR [facility] Last Admin: 01/24/20 20:28 Dose: 2 drops Documented by: Aspirin (Aspirin) 325 mg PO DAILY [facility] Last Admin: 01/24/20 07:51 Dose: Not Given Documented by: Atenolol (Tenormin) 50 mg PO DAILY [facility] Last Admin: 01/24/20 07:51 Dose: Not Given Documented by: Buspirone HCl (Buspar) 30 mg PO BID [facility] Last Admin: 01/24/20 20:30 Dose: 30 mg Documented by: Chlorhexidine Gluconate (Peridex) 15 ml MUCOUS MEM BID [facility] Last Admin: 01/24/20 20:29 Dose: 15 ml Documented by: Enoxaparin Sodium (Lovenox) 40 mg SQ DAILY [facility] Last Admin: 01/24/20 09:16 Dose: Not Given Documented by: Hydromorphone HCl (Dilaudid) 1 mg IVP Q3H PRN PRN Reason: Pain Last Admin: 01/24/20 01:08 Dose: 1 mg Documented by: Cefepime HCl 1 gm/ Sodium (Chloride) 50 mls @ 12.5 mls/hr IVPB Q12HR [facility] Last Admin: 01/24/20 20:35 Dose: 12.5 mls/hr Documented by: Sodium Chloride (Saline 0.9%) 1,000 mls @ 100 mls/hr IV .Q10H [facility] Last Admin: 01/24/20 20:28 Dose: 100 mls/hr Documented by: Vancomycin HCl 1,750 mg/ (Sodium Chloride) 500 mls @ 167 mls/hr IVPB Q12H [facility] Last Admin: 01/24/20 09:34 Dose: 167 mls/hr Documented by: Cisatracurium Besylate 200 mg/ (Sodium Chloride) 200 mls @ 13.92 mls/hr IV .[id number] [facility]; Protocol Last Admin: 01/24/20 16:27 Dose: 1.5 mcg/kg/min, 10.44 mls/hr Documented by: Propofol 1,000 mg/ IV Solution 100 mls @ 0 mls/hr IV .Q0M [facility]; Protocol Last Admin: 01/24/20 16:26 Dose: 50 mcg/kg/min, 34.8 mls/hr Documented by: Potassium Chloride 20 meq/ IV (Solution) 100 mls @ 50 mls/hr IVPB Q2H [facility]; Protocol Stop: 01/24/20 21:59 Last Admin: 01/24/20 20:35 Dose: 50 mls/hr Documented by: Insulin Aspart (Novolog) 0 unit SQ Q6H [facility]; Protocol Last Admin: 01/24/20 18:15 Dose: Not Given Documented by: Metoclopramide HCl (Reglan) 10 mg IVP Q6HR [facility] Last Admin: 01/24/20 18:16 Dose: 10 mg Documented by: Miscellaneous Information (Potassium Per Protocol) 1 each MISCELLANE DAILY PRN; Protocol PRN Reason: Per Protocol Miscellaneous Information (Potassium Per Protocol) 1 each MISCELLANE DAILY PRN; Protocol PRN Reason: Per Protocol Naloxone HCl (Narcan) 0.2 mg IV Q2M PRN PRN Reason: Opioid Reversal Nicotine (Habitrol 21mg/24hr Patch) 1 patch TRANSDERM DAILY [facility] Last Admin: 01/24/20 09:34 Dose: 1 patch Documented by: Pantoprazole Sodium (Protonix) 40 mg IVP BID [facility] Last Admin: 01/24/20 20:29 Dose: 40 mg Documented by: Sertraline HCl (Zoloft) 200 mg PO DAILY [facility] Last Admin: 01/24/20 07:51 Dose: Not Given Documented by: Physical examination: VITAL SIGNS: 100.5, 98, 32, 111/71, 125/60 on the ventilator GENERAL: Laying in bed, intubated. EYES: Pupils equal. Conjunctiva normal. HEENT: External appearance of nose and ears normal, oral intratracheal tube NECK: JVD not raised; masses not palpable. HEART: First and second heart sounds are normal; no edema. LUNGS: Respiratory rate increased, decreased breath sounds ABDOMEN: Soft, nontender, liver spleen not palpable, no masses palpable. PSYCH: Patient sedated INVESTIGATIONS, reviewed in the clinical context: White count 7.3 hemoglobin 8.4 platelets 166 potassium 3.2 creatinine 0.55, ABG pH 7.29 pCO2 52 pO2 79 Chest x-ray film personally reviewed by me-scattered infiltrates Previous testing White count 17 hemoglobin 11 potassium 3.5 Chest x-ray film personally reviewed by me-ET tube, bilateral infiltrates Previous testing White count 12.5 hemoglobin 10.3 potassium 3.2 creatinine 0.61 procalcitonin 0.12 Chest x-ray film personally reviewed by me-bilateral infiltrates Assessment: -Bilateral pneumonia suspected gram-negative organism and aspiration pneumonia causing severe sepsis-slow to respond -Early ARDS picture. -Acute delirium on the metabolic encephalopathy from the same -Methamphetamine use and overdose of baclofen -Possible bipolar disorder with depression and anxiety -Acute hypoxic and hypercapnic failure from above,-requiring ventilator assistance-worsening(patient also was int[facility]ated at [facility] then extubated.) -Morbid obesity BMI 40.5 -Hypoalbuminemia-acute phase reactant -Hypo kalemia -Normocytic anemia -Acute respiratory acidosis Plan: -Patient not improving. On IV propofol, vancomycin, cefepime and Nimbex. Continue supportive care.
[2020-01-24 23:54] LABS: Glucose,Whole Blood 86 mg/dL (75-99)
[2020-01-25] MEDS: INSULIN ASPART (NovoLOG) 100 UNIT/ML VIAL SQ SCH ×4 (00:01→18:35)
[2020-01-25] MEDS: METOCLOPRAMIDE 5 MG/ML 2 ML VIAL IVP SCH ×4 (00:03→18:16)
[2020-01-25] MEDS: ARTIFICIAL TEARS-HYPROMELLOSE DROPS 15 ML BTL BOTH EYES SCH ×6 (00:04→21:46)
[2020-01-25] MEDS: IPRATROPIUM-ALBUTEROL 3 ML NEB INHALATION SCH ×6 (03:45→23:01)
[2020-01-25 04:16] LABS: Basophils % (A) 0 %; Eosinophils # (A) 0.3 k/uL (0-0.7); Eosinophils % (A) 4 %; HCT 27.4 % (34.0-46.0); HGB 8.3 gm/dL (11.4-16.0); Hypochromasia Moderate; Lymphocytes # (A) 2.2 k/uL (1.0-4.8); Lymphocytes % (A) 31 %; MCH 28.3 pg (25.0-35.0); MCHC 30.3 g/dL (31.0-37.0); MCV 93.4 fL (80.0-100.0); Mean Platelet Volume 8.6; Monocytes # (A) 0.2 k/uL (0-1.0); Monocytes % (A) 3 %; Neutrophils # (A) 4.3 k/uL (1.3-7.7); Neutrophils % (A) 61 %; Platelet Count 228 k/uL (150-450); RBC 2.93 m/uL (3.80-5.40); RDW 15.9 % (11.5-15.5); WBC 7.1 k/uL (3.8-10.6)
[2020-01-25 04:21] LABS: African American GFR (CKD) >90 (>60 ml/min/1.73 sqM); Anion Gap 2 mmol/L; Blood Urea Nitrogen 9 mg/dL (7-17); Calcium 7.6 mg/dL (8.4-10.2); Carbon Dioxide 23 mmol/L (22-30); Chloride 120 mmol/L (98-107); Glucose 82 mg/dL (74-99); Non-African American GFR(CKD) >90 (>60 ml/min/1.73 sqM); Potassium 3.6 mmol/L (3.5-5.1); Sodium 145 mmol/L (137-145)
[2020-01-25 04:41] LABS: ABG HCO3 23 mmol/L (21-25); ABG PCO2 44 mmHg (35-45); ABG PH 7.32 (7.35-7.45); ABG PO2 91 mmHg (83-108); ABG TCO2 24 mmol/L (19-24); Allen Test Performed? Yes
[2020-01-25] MEDS: SODIUM CHLORIDE 0.9% 1,000 ML IV SCH ×2 (05:00→17:54)
[2020-01-25] MEDS: CISATRACURIUM 200 MG in SODIUM CHLORIDE 0.9% 180 ML IV SCH ×3 (07:02→22:09)
[2020-01-25 07:04] LABS: Glucose,Whole Blood 79 mg/dL (75-99)
--- NOTE | 2020-01-25 08:08 | XR ---
EXAMINATION TYPE: XR chest 1V portable DATE OF EXAM: 01/25/2020 COMPARISON: January 24, 2020 HISTORY: SOB, Follow Up FINDINGS: Indwelling tubes and catheters are unchanged. No change in bibasilar opacities. Stable appearance of the cardio-mediastinal structures at this time. Pleural effusion unchanged. IMPRESSION: 1. Stable portable chest. Clinical correlation and follow up until resolution is recommended.
[2020-01-25] MEDS ORDERED: POTASSIUM CHLORIDE 20 MEQ in WATER FOR INJECTION 1 100ML.BAG IVPB STA (08:52)
[2020-01-25] MEDS: CEFEPIME 1 GM in SODIUM CHLORIDE 0.9% 50 ML IVPB SCH ×2 (08:56→20:49)
[2020-01-25] MEDS: methylPREDNISolone SOD SUCCI 125 MG/2 ML VIAL IV SCH ×3 (08:59→18:16)
[2020-01-25] MEDS: NICOTINE 21MG/24HR PATCH TRANSDERM SCH (08:59)
[2020-01-25] MEDS: busPIRone HCl 10 MG TAB PO SCH ×2 (08:59→21:48)
[2020-01-25] MEDS: SERTRALINE 100 MG TAB PO SCH (09:00)
[2020-01-25] MEDS: PANTOPRAZOLE 40 MG/10 ML VIAL IVP SCH ×2 (09:00→21:52)
[2020-01-25] MEDS: FUROSEMIDE 10 MG/ML 4 ML VIAL IV SCH (09:00)
[2020-01-25] MEDS: ENOXAPARIN 40 MG/0.4 ML SYRINGE SQ SCH (09:00)
[2020-01-25] MEDS: CHLORHEXIDINE GLUCONATE 15 ML CUP MUCOUS MEM SCH ×2 (09:00→21:48)
[2020-01-25] MEDS: ASPIRIN 325 MG TAB PO SCH (09:00)
[2020-01-25] MEDS: atenoloL 50 MG TAB PO SCH (09:00)
--- NOTE | 2020-01-25 09:55 | P.PN ---
Subjective Progress Note Date: 01/25/20 Patient was seen at bedside and remains to be intubated and on sedation. She is currently on Propofol 50mg/kg/min and Nimbex 1.9mcg/kg/min. Per nurse no neurological issues. Patient is having respiratory symptoms and possible ARDS. Objective - Vital Signs Vital signs: Vital Signs Temp 98.7 F 01/25/20 04:00 Pulse 93 01/25/20 08:00 Resp 32 H 01/25/20 08:00 BP 114/74 01/25/20 07:00 Pulse Ox 100 01/25/20 08:00 Intake & Output 01/24/20 01/25/20 01/25/20 18:59 06:59 18:59 Intake Total 2123.744 2382.572 125.951 Output Total 1640 1480 225 Balance 483.744 902.572 -99.049 Weight 122 kg 124.6 kg Intake: IV 1740.0 1250 120 Cefepime 1 gm In Sodium 50.0 50 Chloride 0.9% 50 ml @ 12. 5 mls/hr IVPB Q12HR [facility] Rx#:[id number] Sodium Chloride 0.9% 1, 1190 1200 120 000 ml @ 20 mls/hr IV . Q24H [facility] Rx#:[id number] Vancomycin 1,750 mg In 500 Sodium Chloride 0.9% 500 ml 500 ml @ 167 mls/hr IVPB Q12H [facility] Rx#: [id number] Intake, IV Titration 793.185 9158.572 5.951 Amount Cisatracurium 200 mg In 183.744 147.552 5.951 Sodium Chloride 0.9% 180 ml @ 2 MCG/KG/MIN 13.92 mls/hr IV .[id number] [facility] Rx #:[id number] Potassium Chloride 20 meq 100 In Water For Injection 1 100ml.bag @ 50 mls/hr IVPB Q2H [facility] Rx#: [id number] Potassium Chloride 20 meq 100 In Water For Injection 1 100ml.bag @ 50 mls/hr IVPB Q2H [facility] Rx#: [id number] Vancomycin 1,750 mg In 500 Sodium Chloride 0.9% 500 ml 500 ml @ 167 mls/hr IVPB Q12H [facility] Rx#: [id number] propofoL 1,000 mg In 100 385.02 Empty Bag 1 bag @ Titrate IV .Q0M [facility] Rx#: [id number] Output: Gastric Drainage 450 300 Urine 1190 1180 225 Other: Voiding Method Indwelling Catheter Indwelling Catheter ABP, PAP, CO, CI - Last Documented Arterial Blood Pressure 123/63 - Exam Exam is limited since Patient is intubated and on sedation. Cardiac: Regular rate and rhtyhm. Respiratory: Intubated and on ventilator. Limited Neurological Exam: Not following command and cannot assess verbal because of condition.. Pupils are 3mm bilateral and reactive to light symetrically. Motor: No spontatenous movement noted. Strength: Could not assess. Sensory: With painful stimuli was grimaces faces in all four extremities. Reflexes: 2+ throughout. Plantars: Mute bilaterally. - Labs CBC & Chem 7: 01/25/20 04:00 01/25/20 04:00 Labs: Abnormal Lab Results - Last 24 Hours (Table) 01/24/20 01/25/20 01/25/20 Range/Units 15:10 04:00 04:00 RBC 2.93 L (3.80-5.40) m/uL Hgb 8.3 L (11.4-16.0) gm/dL Hct 27.4 L (34.0-46.0) % MCHC 30.3 L (31.0-37.0) g/dL RDW 15.9 H (11.5-15.5) % ABG pH (7.35-7.45) Chloride 120 H (98-107) mmol/L Calcium 7.6 L (8.4-10.2) mg/dL Urine Protein 1+ H (Negative) Urine Blood Trace H (Negative) Urine RBC 35 H (0-5) /hpf Urine Bacteria Occasional H (None) /hpf Urine Mucus Rare H (None) /hpf 01/25/20 Range/Units 04:35 RBC (3.80-5.40) m/uL Hgb (11.4-16.0) gm/dL Hct (34.0-46.0) % MCHC (31.0-37.0) g/dL RDW (11.5-15.5) % ABG pH 7.32 L (7.35-7.45) Chloride (98-107) mmol/L Calcium (8.4-10.2) mg/dL Urine Protein (Negative) Urine Blood (Negative) Urine RBC (0-5) /hpf Urine Bacteria (None) /hpf Urine Mucus (None) /hpf Microbiology - Last 24 Hours (Table) 01/24/20 12:15 Gram Stain - Preliminary Sputum Sputum Culture - Preliminary Assessment and Plan Assessment: Transient visula disturbance with upper altitudinal defect in the visual field in both eyes, that lasted for a "few seconds". Doubt TIA based upon duration of symptoms however her CT of head did reveal evidence of previous lancunar storke. Vascular risk factors include tobacco use and polysubstance abuse. Status post intentional overdose on baclofen and amphetamine Status post ventilator-dependent respiratory failure. Aspiration Pneumonitis and ?ARDS Hypocalcemia Plan: Patient had normal CTA of head and neck. 2D echo was performed few months ago and was normal. No need to repeat. HbA1c: 5.2 Lipid profile: LDL 126, TG 137, Cholestrol 189 and HDL: 36. Currently patient is on ASA 325mg daily for history of lacunar stroke. Recommend placing her on lipitor 20mg of secondary stroke prophylaxis. Regarding her hypocalcemia: 6.5. Recommend repeating it and if low then order iodonized calcium and if low recommend correcting but defer to primary team. We will continue to follow. Tawanda Devine MD Neurohospitalist. Time with Patient: Greater than 30
[2020-01-25] MEDS: VANCOMYCIN 1,750 MG in SODIUM CHLORIDE 0.9% 500 ML 500 ML IVPB SCH ×2 (10:41→22:09)
[2020-01-25] MEDS: fentaNYL (PF) 1,000 MCG in SODIUM CHLORIDE 0.9% 80 ML IV SCH ×2 (10:57→20:17)
[2020-01-25 12:17] LABS: Glucose,Whole Blood 103 mg/dL (75-99)
--- NOTE | 2020-01-25 13:02 | P.PN ---
Subjective Progress Note Date: 01/25/20 44-year-old female patient post acute methamphetamine overdose combination with baclofen, initially presented to [facility] and the patient was severely agitated and confused and altered. At that time the patient to be intubated and placed on mechanical ventilation. She was extubated. Subsequently he developed bilateral pulmonary infiltrates typical of an ARDS presentation. She failed high flow oxygen and BiPAP and ultimately she had to be intubated and placed on mechanical ventilator. This morning, the patient is was sedated with propofol which is running at 50 mg per KG per minute. The patient is also on Nimbex for paralytics and the patient is a 1.9 g per KG per minute. She is very symptoms with the mechanical ventilator. She is on assist control mode at the rate of 32 with a tidal volume of 650 and an FiO2 of 40% with a PEEP of 13. The patient's pH is at 7.37 with a pCO2 of 44 and pO2 of 91. The peak airway pressures are 34 with a static pressure of around 30. The patient has a chest x-ray that showed diffuse but the pulmonary infiltrates suggestive underlying ARDS. Hemodynamically, she is doing well. She has an adequate urine output. She is in a positive fluid balance and she is also normal saline at the rate of 110 mL an hour. She had some coffee-ground material. OG and for that reason no to feeds have been initiated. Hemoglobin is stable. She is afebrile. She is covered with broad-spectrum antibiotics and she is currently seeing combination of cefepime and vancomycin. Objective - Vital Signs Vital signs: Vital Signs Temp 99.2 F 01/25/20 12:00 Pulse 89 01/25/20 12:00 Resp 33 H 01/25/20 12:00 BP 114/74 01/25/20 07:00 Pulse Ox 94 L 01/25/20 12:00 Intake & Output 01/24/20 01/25/20 01/25/20 18:59 06:59 18:59 Intake Total 2123.744 2382.572 295.018 Output Total 1640 1480 3600 Balance 483.744 902.572 -3304.982 Weight 122 kg 124.6 kg 124.6 kg Intake: IV 1740.0 1250 230 Cefepime 1 gm In Sodium 50.0 50 50 Chloride 0.9% 50 ml @ 12. 5 mls/hr IVPB Q12HR [facility] Rx#:[id number] Sodium Chloride 0.9% 1, 1190 1200 180 000 ml @ 20 mls/hr IV . Q24H [facility] Rx#:[id number] Vancomycin 1,750 mg In 500 Sodium Chloride 0.9% 500 ml 500 ml @ 167 mls/hr IVPB Q12H [facility] Rx#: [id number] Intake, IV Titration 998.427 7408.572 65.018 Amount Cisatracurium 200 mg In 183.744 147.552 65.018 Sodium Chloride 0.9% 180 ml @ 2 MCG/KG/MIN 13.92 mls/hr IV .[id number] [facility] Rx #:[id number] Potassium Chloride 20 meq 100 In Water For Injection 1 100ml.bag @ 50 mls/hr IVPB Q2H [facility] Rx#: [id number] Potassium Chloride 20 meq 100 In Water For Injection 1 100ml.bag @ 50 mls/hr IVPB Q2H [facility] Rx#: [id number] Vancomycin 1,750 mg In 500 Sodium Chloride 0.9% 500 ml 500 ml @ 167 mls/hr IVPB Q12H [facility] Rx#: [id number] propofoL 1,000 mg In 100 385.02 Empty Bag 1 bag @ Titrate IV .Q0M [facility] Rx#: [id number] Output: Gastric Drainage 450 300 Urine 1190 1180 3600 Other: Voiding Method Indwelling Catheter Indwelling Catheter Indwelling Catheter ABP, PAP, CO, CI - Last Documented Arterial Blood Pressure 101/53 - Exam Gen. appearance the patient is sedated and paralyzed, comfortable likely distress suggest the mechanical ventilator Head exam was generally normal. There was no scleral icterus or corneal arcus. Mucous membranes were moist. Neck was supple and without jugular venous distension, thyromegaly, or carotid bruits. Carotids were easily palpable bilaterally. There was no adenopathy. Orogastric and orotracheal tube are both in place and there is no neck stiffness. Mucous membranes are moist. Lungs sounds are diminished bilaterally and crackles can be appreciated lung bases bilaterally. Cardiac exam revealed the PMI to be normally situated and sized. The rhythm was regular and no extrasystoles were noted during several minutes of auscultation. The first and second heart sounds were normal and physiologic splitting of the second heart sound was noted. There were no murmurs, rubs, clicks, or gallops. Abdominal exam revealed normal bowel sounds. The abdomen was soft, non-tender, and without masses, organomegaly, or appreciable enlargement of the abdominal aorta. Examination of the extremities revealed easily palpable radial, femoral and pedal pulses. There was no cyanosis, clubbing or edema. Examination of the skin revealed no evidence of significant rashes, suspicious appearing nevi or other concerning lesions. Neurologically the patient is sedated and paralyzed. - Labs CBC & Chem 7: 01/25/20 04:00 01/25/20 04:00 Labs: Abnormal Lab Results - Last 24 Hours (Table) 01/24/20 01/25/20 01/25/20 Range/Units 15:10 04:00 04:00 RBC 2.93 L (3.80-5.40) m/uL Hgb 8.3 L (11.4-16.0) gm/dL Hct 27.4 L (34.0-46.0) % MCHC 30.3 L (31.0-37.0) g/dL RDW 15.9 H (11.5-15.5) % ABG pH (7.35-7.45) Chloride 120 H (98-107) mmol/L POC Glucose (mg/dL) (75-99) mg/dL Calcium 7.6 L (8.4-10.2) mg/dL Urine Protein 1+ H (Negative) Urine Blood Trace H (Negative) Urine RBC 35 H (0-5) /hpf Urine Bacteria Occasional H (None) /hpf Urine Mucus Rare H (None) /hpf 01/25/20 01/25/20 Range/Units 04:35 12:15 RBC (3.80-5.40) m/uL Hgb (11.4-16.0) gm/dL Hct (34.0-46.0) % MCHC (31.0-37.0) g/dL RDW (11.5-15.5) % ABG pH 7.32 L (7.35-7.45) Chloride (98-107) mmol/L POC Glucose (mg/dL) 103 H (75-99) mg/dL Calcium (8.4-10.2) mg/dL Urine Protein (Negative) Urine Blood (Negative) Urine RBC (0-5) /hpf Urine Bacteria (None) /hpf Urine Mucus (None) /hpf Microbiology - Last 24 Hours (Table) 01/24/20 12:15 Gram Stain - Preliminary Sputum Sputum Culture - Preliminary Assessment and Plan Plan: 1 acute hypoxic respiratory failure due to ARDS. Consider aspiration related ARDS. Consider drug-induced ARDS. Patient is currently sedated and paralyzed on low tidal volume mechanical ventilation based on the ARDS network protocol. 2 previous history of prolonged respiratory failure/ARDS due to substance abuse and drug overdose 3 history of methamphetamine abuse 4 altered mental status essentially secondary to drug overdose 5 history of depression 6 obesity with a BMI of 44.3 7 coffee-ground material from neurology, consider possibility of an upper GI bleed 8 anemia of chronic disease Plan Continue sedation with propofol Attempt to wean the patient often index and utilized fentanyl if needed The plan for today is to get this patient off the paralytics Add IV Solu-Medrol Continue cefepime and vancomycin as broad-spectrum antibiotic coverage Change IV fluids to KVO Give the patient dose of Lasix 40 mg IV push Hold tube feeds for another 24 hours SCDs to lower extremities for DVT prophylaxis We'll continue to follow make further recommendations based on her progress. Condition is critical. This evaluation was done and morning 30 minutes. Time with Patient: Greater than 30
[2020-01-25 18:31] LABS: Glucose,Whole Blood 103 mg/dL (75-99)
--- NOTE | 2020-01-25 18:47 | P.PN ---
Progress Note - Text Progress Note Date: 01/25/20 Chief Complaint: Short of breath cough History of presenting complaint: This is a 44-year-old patient who follows that MAGY Ramos. Patient had initially presented to [facility] with altered mental status. She had taken methamphetamines and also overdose of baclofen. She went into respiratory distress and had to be intubated. She was extubated the following morning that is yesterday. Was short of breath. Somewhat agitated. Requiring 2 L of oxygen . I did talk to the patient about getting transferred to [facility] on for psychiatry evaluation but patient refuses. Patient was here in the hospital in May 2019 felt be possible overdose of calcium channel blockers or Atarax. Patient to hospital for a few days. Has underlying depression and anxiety. I had to certify the patient. She was very anxious and depressed. And patient was transferred over here to [facility] Patient had developed a fever felt to have aspiration pneumonia and was started on vancomycin and Zosyn. An bronchodilators. Patient had previous suicide attempts. Patient related to respiratory distress and was intubated. Soltw-ULD-[id number]. Ventilator-FiO2 40 and a PEEP of 13. This included propofol, fentanyl, Nimbex. Telemetry shows sinus rhythm. Patient's mother at the bedside. Patient sedated. NG tube with aspirate blood-tinged Progress review of systems-patient intubated Active Medications Acetaminophen (Tylenol Tab) 1,000 mg PO Q6H PRN PRN Reason: Pain Last Admin: 01/22/20 13:20 Dose: 1,000 mg Documented by: Albuterol/Ipratropium (Duoneb 0.5 Mg-3 Mg/3 Ml Soln) 3 ml INHALATION RT-Q4H [facility] Last Admin: 01/25/20 14:51 Dose: 3 ml Documented by: Artificial Tears (Artificial Tear Drops) 2 drops BOTH EYES Q4HR [facility] Last Admin: 01/25/20 15:48 Dose: Not Given Documented by: Aspirin (Aspirin) 325 mg PO DAILY [facility] Last Admin: 01/25/20 09:00 Dose: Not Given Documented by: Atenolol (Tenormin) 50 mg PO DAILY [facility] Last Admin: 01/25/20 09:00 Dose: Not Given Documented by: Buspirone HCl (Buspar) 30 mg PO BID [facility] Last Admin: 01/25/20 08:59 Dose: Not Given Documented by: Chlorhexidine Gluconate (Peridex) 15 ml MUCOUS MEM BID [facility] Last Admin: 01/25/20 09:00 Dose: 15 ml Documented by: Enoxaparin Sodium (Lovenox) 40 mg SQ DAILY [facility] Last Admin: 01/25/20 09:00 Dose: Not Given Documented by: Furosemide (Lasix) 40 mg IV DAILY [facility] Last Admin: 01/25/20 09:00 Dose: 40 mg Documented by: Furosemide (Lasix) 40 mg IV DAILY [facility] Stop: 01/25/20 21:01 Cefepime HCl 1 gm/ Sodium (Chloride) 50 mls @ 12.5 mls/hr IVPB Q12HR [facility] Last Admin: 01/25/20 08:56 Dose: 12.5 mls/hr Documented by: Sodium Chloride (Saline 0.9%) 1,000 mls @ 20 mls/hr IV .Q24H [facility] Last Admin: 01/25/20 17:54 Dose: Not Given Documented by: Vancomycin HCl 1,750 mg/ (Sodium Chloride) 500 mls @ 167 mls/hr IVPB Q12H [facility] Last Admin: 01/25/20 10:41 Dose: 167 mls/hr Documented by: Propofol 1,000 mg/ IV Solution 100 mls @ 0 mls/hr IV .Q0M [facility]; Protocol Last Admin: 01/25/20 06:35 Dose: 50 mcg/kg/min, 34.8 mls/hr Documented by: Fentanyl Citrate 1,000 mcg/ (Sodium Chloride) 100 mls @ 0 mls/hr IV .Q0M [facility]; Protocol Last Titration: 01/25/20 16:05 Dose: 12.4 mls/hr, 12.4 mls/hr Documented by: Cisatracurium Besylate 200 mg/ (Sodium Chloride) 200 mls @ 14.952 mls/hr IV .[id number] [facility]; Protocol Last Admin: 01/25/20 12:28 Dose: Not Given Documented by: Insulin Aspart (Novolog) 0 unit SQ Q6H [facility]; Protocol Last Admin: 01/25/20 18:35 Dose: Not Given Documented by: Methylprednisolone Sodium Succinate (Solu-Medrol) 60 mg IV Q6HR [facility] Last Admin: 01/25/20 18:16 Dose: 60 mg Documented by: Metoclopramide HCl (Reglan) 10 mg IVP Q6HR [facility] Last Admin: 01/25/20 18:16 Dose: 10 mg Documented by: Miscellaneous Information (Potassium Per Protocol) 1 each MISCELLANE DAILY PRN; Protocol PRN Reason: Per Protocol Miscellaneous Information (Potassium Per Protocol) 1 each MISCELLANE DAILY PRN; Protocol PRN Reason: Per Protocol Miscellaneous Information (Vancomycin Trough Due) 1 each MISCELLANE ONCE ONE Stop: 01/26/20 09:01 Naloxone HCl (Narcan) 0.2 mg IV Q2M PRN PRN Reason: Opioid Reversal Nicotine (Habitrol 21mg/24hr Patch) 1 patch TRANSDERM DAILY [facility] Last Admin: 01/25/20 08:59 Dose: 1 patch Documented by: Pantoprazole Sodium (Protonix) 40 mg IVP BID [facility] Last Admin: 01/25/20 09:00 Dose: 40 mg Documented by: Sertraline HCl (Zoloft) 200 mg PO DAILY [facility] Last Admin: 01/25/20 09:00 Dose: Not Given Documented by: Physical examination: VITAL SIGNS: 99.2, 89, 33, 101/53, 94% on the vent GENERAL: Laying in bed, intubated. EYES: Pupils equal. Conjunctiva normal. HEENT: External appearance of nose and ears normal, oral intratracheal tube NECK: JVD not raised; masses not palpable. HEART: First and second heart sounds are normal; no edema. LUNGS: Respiratory rate increased, decreased breath sounds ABDOMEN: Soft, nontender, liver spleen not palpable, no masses palpable. PSYCH: Patient sedated INVESTIGATIONS, reviewed in the clinical context: White count 7.1 hemoglobin 8.3 platelets 228 potassium 3.6 Chest x-ray film personally reviewed by me-scattered infiltrates Previous testing White count 17 hemoglobin 11 potassium 3.5 Chest x-ray film personally reviewed by me-ET tube, bilateral infiltrates Previous testing White count 12.5 hemoglobin 10.3 potassium 3.2 creatinine 0.61 procalcitonin 0.12 Chest x-ray film personally reviewed by me-bilateral infiltrates Assessment: -Bilateral pneumonia suspected gram-negative organism and aspiration pneumonia causing severe sepsis-slow to respond -Early ARDS picture. -Acute delirium on the metabolic encephalopathy from the same -Methamphetamine use and overdose of baclofen -Possible bipolar disorder with depression and anxiety -Acute hypoxic and hypercapnic failure from above,-requiring ventilator slow to respond (patient also was intubated at [facility] then extubated.) -Morbid obesity BMI 40.5 -Hypoalbuminemia-acute phase reactant -Hypo kalemia -Normocytic anemia -Acute respiratory acidosis Plan: Patient remains on IV cefepime, IV fentanyl, IV Nimbex, IV propofol, IV Solu- Medrol, vancomycin. Ventilated. Prognosis guarded. Discussed with the mother the bedside.
[2020-01-25] MEDS ORDERED: FUROSEMIDE 10 MG/ML 4 ML VIAL IV SCH (21:00)
[2020-01-26] MEDS: fentaNYL (PF) 1,000 MCG in SODIUM CHLORIDE 0.9% 80 ML IV SCH ×3 (00:01→16:44)
[2020-01-26] MEDS: METOCLOPRAMIDE 5 MG/ML 2 ML VIAL IVP SCH ×4 (00:34→18:35)
[2020-01-26] MEDS: ARTIFICIAL TEARS-HYPROMELLOSE DROPS 15 ML BTL BOTH EYES SCH ×6 (00:34→20:27)
[2020-01-26] MEDS: methylPREDNISolone SOD SUCCI 125 MG/2 ML VIAL IV SCH ×4 (00:35→18:35)
[2020-01-26] MEDS: POTASSIUM CHLORIDE 10 MEQ in WATER FOR INJECTION 1 100ML.BAG IVPB SCH ×2 (00:46→02:20)
[2020-01-26 00:58] LABS: Glucose,Whole Blood 89 mg/dL (75-99)
[2020-01-26] MEDS: INSULIN ASPART (NovoLOG) 100 UNIT/ML VIAL SQ SCH ×4 (02:21→17:50)
[2020-01-26] MEDS: IPRATROPIUM-ALBUTEROL 3 ML NEB INHALATION SCH ×6 (03:09→23:14)
[2020-01-26] MEDS: HALOPERIDOL LACTATE 5 MG/ML 1 ML VIAL IVP PRN (03:17)
[2020-01-26 05:15] LABS: Glucose,Whole Blood 126 mg/dL (75-99)
[2020-01-26 05:16] LABS: ABG Base Excess 2.2 mmol/L; ABG HCO3 28 mmol/L (21-25); ABG Oxygen Saturation 97.3 % (94-97); ABG PCO2 48 mmHg (35-45); ABG PH 7.37 (7.35-7.45); ABG PO2 97 mmHg (83-108); ABG TCO2 29 mmol/L (19-24); Allen Test Performed? Yes
[2020-01-26 05:20] LABS: African American GFR (CKD) >90 (>60 ml/min/1.73 sqM); Anion Gap 4 mmol/L; Blood Urea Nitrogen 14 mg/dL (7-17); Calcium 7.9 mg/dL (8.4-10.2); Carbon Dioxide 28 mmol/L (22-30); Chloride 112 mmol/L (98-107); Glucose 126 mg/dL (74-99); Non-African American GFR(CKD) >90 (>60 ml/min/1.73 sqM); Potassium 3.4 mmol/L (3.5-5.1); Sodium 144 mmol/L (137-145)
[2020-01-26] MEDS: POTASSIUM CHLORIDE 20 MEQ in WATER FOR INJECTION 1 100ML.BAG IVPB SCH ×2 (06:10→08:27)
[2020-01-26] MEDS: NOREPINEPHRINE 32 MG in SODIUM CHLORIDE 0.9% 218 ML IV SCH (08:24)
[2020-01-26] MEDS: ASPIRIN 325 MG TAB PO SCH (08:25)
[2020-01-26] MEDS: FUROSEMIDE 10 MG/ML 4 ML VIAL IV SCH (08:25)
[2020-01-26] MEDS: NICOTINE 21MG/24HR PATCH TRANSDERM SCH (08:25)
[2020-01-26] MEDS: ENOXAPARIN 40 MG/0.4 ML SYRINGE SQ SCH (08:26)
[2020-01-26] MEDS: PANTOPRAZOLE 40 MG/10 ML VIAL IVP SCH ×2 (08:26→20:26)
[2020-01-26] MEDS: CHLORHEXIDINE GLUCONATE 15 ML CUP MUCOUS MEM SCH ×2 (08:26→20:26)
[2020-01-26] MEDS: busPIRone HCl 10 MG TAB PO SCH ×2 (08:28→20:26)
[2020-01-26] MEDS: SERTRALINE 100 MG TAB PO SCH (08:29)
[2020-01-26] MEDS: atenoloL 50 MG TAB PO SCH (08:29)
[2020-01-26] MEDS: CEFEPIME 1 GM in SODIUM CHLORIDE 0.9% 50 ML IVPB SCH ×2 (09:00→20:26)
[2020-01-26] MEDS ORDERED: VANCOMYCIN TROUGH DUE 1 EACH MISC MISCELLANE ONE (09:00)
--- NOTE | 2020-01-26 09:35 | XR ---
EXAMINATION TYPE: XR chest 1V portable DATE OF EXAM: 01/26/2020 COMPARISON: 01/25/2020 INDICATION: Tube placement TECHNIQUE: Single frontal view of the chest is obtained. FINDINGS: The heart size is normal. The pulmonary vasculature is normal. Bibasilar infiltrates are present greater at the right base allowing for atelectasis and pneumonia. F indings are similar to slightly improved in comparison. Endotracheal tube tip is above the shaw. Nasogastric tube tip is in the left upper quadrant of the abdomen. IMPRESSION: 1. Similar to slightly improving bibasilar infiltrates. Correlate for atelectasis. Pneumonia is withi n the differential. Continued follow-up is recommended.
[2020-01-26] MEDS: VANCOMYCIN 1,750 MG in SODIUM CHLORIDE 0.9% 500 ML 500 ML IVPB SCH ×2 (10:02→22:54)
[2020-01-26 11:37] LABS: Glucose,Whole Blood 133 mg/dL (75-99)
[2020-01-26 12:48] LABS: Basophils % (A) 1 %; Eosinophils # (A) 0.2 k/uL (0-0.7); Eosinophils % (A) 2 %; Hypochromasia Moderate; Lymphocytes # (A) 1.3 k/uL (1.0-4.8); Lymphocytes % (A) 16 %; MCH 29.4 pg (25.0-35.0); MCHC 31.1 g/dL (31.0-37.0); MCV 94.7 fL (80.0-100.0); Mean Platelet Volume 9.4; Monocytes # (A) 0.2 k/uL (0-1.0); Monocytes % (A) 2 %; Neutrophils # (A) 6.4 k/uL (1.3-7.7); Neutrophils % (A) 79 %; Platelet Count 269 k/uL (150-450); RBC 3.06 m/uL (3.80-5.40); RDW 15.6 % (11.5-15.5); WBC 8.1 k/uL (3.8-10.6)
--- NOTE | 2020-01-26 12:51 | P.PN ---
Subjective Progress Note Date: 01/26/20 On today's evaluation of 01/26/2020 and seeing this patient for a follow-up. The patient has been taken off the paralytics yesterday and the patient is on a combination of fentanyl and propofol. Propofol is running at 50 mg per KG per minute. Insulin is running at 1 g per KG per minute. The patient IV fluids currently down to 30s an hour and the patient was diuresed yesterday with IV Lasix and she has been in a negative fluid balance. In terms of her respirator, the patient remains on low tidal volume mechanical ventilation with a tidal volume of 350 with an FiO2 of 40% and a PEEP of 13 with a rate of 32. Peak air pressures are 36 and the platelet liver pressure is 31. The blood gases from today shows a pH of 7.37 with a pCO2 of 48 and pO2 of 97 and this was on FiO2 of 40%. Chest x-ray still showing diffuse breath and pulmonary infiltrates consistent with ARDS without any significant improvement compared to yesterday. The patient remains on broad-spectrum antibiotics and the patient is currently on accommodation cefepime and vancomycin. She will be started on enteral feeding for nutritional support. Hemoglobin is stable for now. Renal function is stable. She is afebrile. No other significant events otherwise for now. Noted this patient is 44 years old and she initially had a acute methamphetamine overdose in addition to baclofen. She subsequently went into ARDS with secondary ventilatory dependent respiratory failure/acute hypoxic respiratory failure and she remains intubated on mechanical ventilator for now. Objective - Vital Signs Vital signs: Vital Signs Temp 97.4 F L 01/26/20 12:00 Pulse 65 01/26/20 12:00 Resp 32 H 01/26/20 12:00 BP 103/62 01/26/20 12:00 Pulse Ox 98 01/26/20 12:00 Intake & Output 01/25/20 01/26/20 01/26/20 18:59 06:59 18:59 Intake Total 511.173 8133.737 1106.881 Output Total 4750 4335 2645 Balance -4183.155 -2741.263 -1538.119 Weight 124.6 kg 120.6 kg 115.8 kg Intake: IV 370 1041 270 Cefepime 1 gm In Sodium 50 50 Chloride 0.9% 50 ml @ 12. 5 mls/hr IVPB Q12HR [facility] Rx#:[id number] Potassium Chloride 10 meq 300 In Water For Injection 1 100ml.bag @ 100 mls/hr IVPB Q1H [facility] Rx#: [id number] Potassium Chloride 20 meq 150 In Water For Injection 1 100ml.bag @ 50 mls/hr IVPB [facility] Rx#: [id number] Sodium Chloride 0.9% 1, 320 190 120 000 ml @ 20 mls/hr IV . Q24H [facility] Rx#:[id number] Vancomycin 1,750 mg In 501 Sodium Chloride 0.9% 500 ml 500 ml @ 167 mls/hr IVPB Q12H [facility] Rx#: [id number] Intake, IV Titration 196.845 552.737 786.881 Amount Cefepime 1 gm In Sodium 50 Chloride 0.9% 50 ml @ 12. 5 mls/hr IVPB Q12HR [facility] Rx#:[id number] Cisatracurium 200 mg In 65.018 Sodium Chloride 0.9% 180 ml @ 2 MCG/KG/MIN 13.92 mls/hr IV .[id number] [facility] Rx #:[id number] Vancomycin 1,750 mg In 500 Sodium Chloride 0.9% 500 ml 500 ml @ 167 mls/hr IVPB Q12H [facility] Rx#: [id number] fentaNYL (PF) 1,000 mcg 31.827 193.894 In Sodium Chloride 0.9% 80 ml @ Per Protocol IV . Q0M [facility] Rx#:[id number] propofoL 1,000 mg In 100 358.843 236.881 Empty Bag 1 bag @ Titrate IV .Q0M [facility] Rx#: [id number] Tube Feeding 20 Other 30 Output: Gastric Drainage 100 Urine 4750 4335 2545 Other: Voiding Method Indwelling Catheter Indwelling Catheter Indwelling Catheter ABP, PAP, CO, CI - Last Documented Arterial Blood Pressure 126/61 - Exam Gen. appearance the patient is sedated and she was taken off the paralytics for now, comfortable likely distress suggest the mechanical ventilator Head exam was generally normal. There was no scleral icterus or corneal arcus. Mucous membranes were moist. Neck was supple and without jugular venous distension, thyromegaly, or carotid bruits. Carotids were easily palpable bilaterally. There was no adenopathy. Orogastric and orotracheal tube are both in place and there is no neck stiffness. Mucous membranes are moist. Lungs sounds are diminished bilaterally and crackles can be appreciated lung bases bilaterally. Cardiac exam revealed the PMI to be normally situated and sized. The rhythm was regular and no extrasystoles were noted during several minutes of auscultation. The first and second heart sounds were normal and physiologic splitting of the second heart sound was noted. There were no murmurs, rubs, clicks, or gallops. Abdominal exam revealed normal bowel sounds. The abdomen was soft, non-tender, and without masses, organomegaly, or appreciable enlargement of the abdominal aorta. Examination of the extremities revealed easily palpable radial, femoral and pedal pulses. There was no cyanosis, clubbing or edema. Examination of the skin revealed no evidence of significant rashes, suspicious appearing nevi or other concerning lesions. Neurologically the patient is sedated - Labs CBC & Chem 7: 01/25/20 04:00 01/26/20 04:45 Labs: Abnormal Lab Results - Last 24 Hours (Table) 01/25/20 01/25/20 01/26/20 Range/Units 04:00 18:30 04:45 ABG pCO2 (35-45) mmHg ABG HCO3 (21-25) mmol/L ABG Total CO2 (19-24) mmol/L ABG O2 Saturation (94-97) % Potassium 3.4 L (3.5-5.1) mmol/L Chloride 112 H (98-107) mmol/L Glucose 126 H (74-99) mg/dL POC Glucose (mg/dL) 103 H (75-99) mg/dL Calcium 7.9 L (8.4-10.2) mg/dL Procalcitonin 0.68 H (0.02-0.09) ng/mL 01/26/20 01/26/20 01/26/20 Range/Units 05:11 05:14 11:36 ABG pCO2 48 H (35-45) mmHg ABG HCO3 28 H (21-25) mmol/L ABG Total CO2 29 H (19-24) mmol/L ABG O2 Saturation 97.3 H (94-97) % Potassium (3.5-5.1) mmol/L Chloride (98-107) mmol/L Glucose (74-99) mg/dL POC Glucose (mg/dL) 126 H 133 H (75-99) mg/dL Calcium (8.4-10.2) mg/dL Procalcitonin (0.02-0.09) ng/mL Microbiology - Last 24 Hours (Table) 01/24/20 12:15 Gram Stain - Final Sputum Sputum Culture - Final 01/24/20 12:47 Blood Culture - Preliminary Blood No Growth after 24 hours 01/24/20 12:41 Blood Culture - Preliminary Blood No Growth after 24 hours Assessment and Plan Plan: 1 acute hypoxic respiratory failure due to ARDS. Consider aspiration related ARDS. Consider drug-induced ARDS. Patient is currently sedated and she was taken off the paralytics. The patient is currently being mechanically ventilated, volume cycle with a low tidal volume regimen. Adequate oxygenation and ventilation. Chest x-ray still showing diffuse but the pulmonary infiltrates. Because setting of a pressure elevated consistent with poor compliance of the lungs. 2 previous history of prolonged respiratory failure/ARDS due to substance abuse and drug overdose 3 history of methamphetamine abuse 4 altered mental status essentially secondary to drug overdose 5 history of depression 6 obesity with a BMI of 44.3 7 coffee-ground material from neurology, consider possibility of an upper GI bleed, inactive in stable and the patient will be started on enteral feeding for nutritional support 8 anemia of chronic disease , stable hemoglobin Plan Continue sedation with propofol and fentanyl Keep the patient off paralytics Continue IV Solu-Medrol Continue cefepime and vancomycin as broad-spectrum antibiotic coverage Change IV fluids to KVO Give the patient dose of Lasix 40 mg IV push and continued IV Lasix 40 mg IV push on a daily basis Hold tube feeds for another 24 hours initiate tube feeds Drop the PEEP down to 12 and drop the respiratory rate of 28 SCDs to lower extremities for DVT prophylaxis We'll continue to follow make further recommendations based on her progress. Condition is critical. This evaluation was done and morning 30 minutes.
[2020-01-26] MEDS ORDERED: Potassium Replacement Protocol 1 EACH MISC MISCELLANE PRN ×2 (14:41→19:08)
[2020-01-26] MEDS ORDERED: POTASSIUM BICARBONATE/CIT AC 20 MEQ TABLET.EFF NG-TUBE SCH ×3 (15:00→20:00)
[2020-01-26] MEDS: SODIUM CHLORIDE 0.9% 1,000 ML IV SCH (16:50)
[2020-01-26 18:00] LABS: Glucose,Whole Blood 127 mg/dL (75-99)
--- NOTE | 2020-01-26 21:57 | P.PN ---
Progress Note - Text Progress Note Date: 01/26/20 Chief Complaint: Short of breath cough History of presenting complaint: This is a 44-year-old patient who follows that MAGY Ramos. Patient had initially presented to [facility] with altered mental status. She had taken methamphetamines and also overdose of baclofen. She went into respiratory distress and had to be intubated. She was extubated the following morning that is yesterday. Was short of breath. Somewhat agitated. Requiring 2 L of oxygen . I did talk to the patient about getting transferred to [facility] on for psychiatry evaluation but patient refuses. Patient was here in the hospital in May 2019 felt be possible overdose of calcium channel blockers or Atarax. Patient to hospital for a few days. Has underlying depression and anxiety. I had to certify the patient. She was very anxious and depressed. And patient was transferred over here to [facility] Patient had developed a fever felt to have aspiration pneumonia and was started on vancomycin and Zosyn. An bronchodilators. Patient had previous suicide attempts. Patient related to respiratory distress and was intubated. [id number]. Ventilator-FiO2 40 and a PEEP of 13. Drips include IV propofol and IV fentanyl. Patient is being taken off Nimbex. 2 feeding started at 10 mL an hour. Has an OG tube. Telemetry shows sinus rhythm. Progress review of systems-patient intubated Active Medications Acetaminophen (Tylenol Tab) 1,000 mg PO Q6H PRN PRN Reason: Pain Last Admin: 01/22/20 13:20 Dose: 1,000 mg Documented by: Albuterol/Ipratropium (Duoneb 0.5 Mg-3 Mg/3 Ml Soln) 3 ml INHALATION RT-Q4H [facility] Last Admin: 01/26/20 19:11 Dose: 3 ml Documented by: Artificial Tears (Artificial Tear Drops) 2 drops BOTH EYES Q4HR [facility] Last Admin: 01/26/20 20:27 Dose: 2 drops Documented by: Aspirin (Aspirin) 325 mg PO DAILY [facility] Last Admin: 01/26/20 08:25 Dose: 325 mg Documented by: Atenolol (Tenormin) 50 mg PO DAILY [facility] Last Admin: 01/26/20 08:29 Dose: 50 mg Documented by: Buspirone HCl (Buspar) 30 mg PO BID [facility] Last Admin: 01/26/20 20:26 Dose: 30 mg Documented by: Chlorhexidine Gluconate (Peridex) 15 ml MUCOUS MEM BID [facility] Last Admin: 01/26/20 20:26 Dose: 15 ml Documented by: Enoxaparin Sodium (Lovenox) 40 mg SQ DAILY [facility] Last Admin: 01/26/20 08:26 Dose: 40 mg Documented by: Furosemide (Lasix) 40 mg IV DAILY [facility] Last Admin: 01/26/20 08:25 Dose: 40 mg Documented by: Haloperidol Lactate (Haldol) 2 mg IVP Q2HR PRN PRN Reason: Agitation or Acute Psychosis Last Admin: 01/26/20 03:17 Dose: 2 mg Documented by: Cefepime HCl 1 gm/ Sodium (Chloride) 50 mls @ 12.5 mls/hr IVPB Q12HR [facility] Last Admin: 01/26/20 20:26 Dose: 12.5 mls/hr Documented by: Sodium Chloride (Saline 0.9%) 1,000 mls @ 20 mls/hr IV .Q24H [facility] Last Admin: 01/26/20 16:50 Dose: Not Given Documented by: Vancomycin HCl 1,750 mg/ (Sodium Chloride) 500 mls @ 167 mls/hr IVPB Q12H [facility] Last Admin: 01/26/20 10:02 Dose: 167 mls/hr Documented by: Propofol 1,000 mg/ IV Solution 100 mls @ 0 mls/hr IV .Q0M [facility]; Protocol Last Admin: 01/26/20 19:57 Dose: 50 mcg/kg/min, 34.74 mls/hr Documented by: Fentanyl Citrate 1,000 mcg/ (Sodium Chloride) 100 mls @ 0 mls/hr IV .Q0M [facility]; Protocol Last Titration: 01/26/20 16:45 Dose: 9.92 mls/hr, 9.92 mls/hr Documented by: Norepinephrine Bitartrate 32 (mg/ Sodium Chloride) 250 mls @ 2.827 mls/hr IV .Q24H [facility]; Protocol Last Admin: 01/26/20 08:24 Dose: Not Given Documented by: Insulin Aspart (Novolog) 0 unit SQ Q6H [facility]; Protocol Last Admin: 01/26/20 17:50 Dose: Not Given Documented by: Methylprednisolone Sodium Succinate (Solu-Medrol) 60 mg IV Q6HR [facility] Last Admin: 01/26/20 18:35 Dose: 60 mg Documented by: Metoclopramide HCl (Reglan) 10 mg IVP Q6HR [facility] Last Admin: 01/26/20 18:35 Dose: 10 mg Documented by: Miscellaneous Information (Potassium Per Protocol) 1 each MISCELLANE DAILY PRN; Protocol PRN Reason: Per Protocol Miscellaneous Information (Potassium Per Protocol) 1 each MISCELLANE DAILY PRN; Protocol PRN Reason: Per Protocol Miscellaneous Information (Potassium Per Protocol) 1 each MISCELLANE DAILY PRN; Protocol PRN Reason: Per Protocol Naloxone HCl (Narcan) 0.2 mg IV Q2M PRN PRN Reason: Opioid Reversal Nicotine (Habitrol 21mg/24hr Patch) 1 patch TRANSDERM DAILY [facility] Last Admin: 01/26/20 08:25 Dose: 1 patch Documented by: Pantoprazole Sodium (Protonix) 40 mg IVP BID [facility] Last Admin: 01/26/20 20:26 Dose: 40 mg Documented by: Sertraline HCl (Zoloft) 200 mg PO DAILY [facility] Last Admin: 01/26/20 08:29 Dose: 200 mg Documented by: Physical examination: VITAL SIGNS: 97.4, 65, 32, 103/62, 98% on the ventilator GENERAL: Laying in bed, intubated. EYES: Pupils equal. Conjunctiva normal. HEENT: External appearance of nose and ears normal, oral intratracheal tube NECK: JVD not raised; masses not palpable. HEART: First and second heart sounds are normal; no edema. LUNGS: Respiratory rate increased, decreased breath sounds ABDOMEN: Soft, nontender, liver spleen not palpable, no masses palpable. PSYCH: Patient sedated INVESTIGATIONS, reviewed in the clinical context: White count 8.1 hemoglobin 9 platelets 269 potassium 3.4 creatinine 0.58 Previous testing White count 17 hemoglobin 11 potassium 3.5 Chest x-ray film personally reviewed by me-ET tube, bilateral infiltrates Previous testing White count 12.5 hemoglobin 10.3 potassium 3.2 creatinine 0.61 procalcitonin 0.12 Chest x-ray film personally reviewed by me-bilateral infiltrates Assessment: -Bilateral pneumonia suspected gram-negative organism and aspiration pneumonia causing severe sepsis-slow to respond -Early ARDS picture. -Acute delirium on the metabolic encephalopathy from the same -Methamphetamine use and overdose of baclofen -Possible bipolar disorder with depression and anxiety -Acute hypoxic and hypercapnic failure from above,-requiring ventilator -slow to respond (patient also was intubated at [facility] then extubated.) -Morbid obesity BMI 40.5 -Hypoalbuminemia-acute phase reactant -Hypo kalemia -Normocytic anemia -Acute respiratory acidosis Plan: Patient remains on IV cefepime, IV vancomycin IV fentanyl, taken off Nimbex, IV propofol, IV Solu-Medrol,. Ventilated. Prognosis guarded.
[2020-01-27] MEDS: ARTIFICIAL TEARS-HYPROMELLOSE DROPS 15 ML BTL BOTH EYES SCH ×7 (01:35→23:11)
[2020-01-27] MEDS: METOCLOPRAMIDE 5 MG/ML 2 ML VIAL IVP SCH ×5 (01:38→23:10)
[2020-01-27] MEDS: methylPREDNISolone SOD SUCCI 125 MG/2 ML VIAL IV SCH ×5 (01:38→23:10)
[2020-01-27] MEDS: fentaNYL (PF) 1,000 MCG in SODIUM CHLORIDE 0.9% 80 ML IV SCH ×3 (01:54→21:11)
[2020-01-27 02:01] LABS: Glucose,Whole Blood 128 mg/dL (75-99)
[2020-01-27] MEDS: INSULIN ASPART (NovoLOG) 100 UNIT/ML VIAL SQ SCH ×5 (02:02→23:10)
[2020-01-27] MEDS: IPRATROPIUM-ALBUTEROL 3 ML NEB INHALATION SCH ×6 (03:04→23:05)
[2020-01-27] MEDS: HALOPERIDOL LACTATE 5 MG/ML 1 ML VIAL IVP PRN (03:12)
[2020-01-27 04:31] LABS: Basophils % (A) 0 %; Eosinophils # (A) 0.1 k/uL (0-0.7); Eosinophils % (A) 1 %; HGB 8.9 gm/dL (11.4-16.0); Hypochromasia Slight; Lymphocytes # (A) 1.3 k/uL (1.0-4.8); Lymphocytes % (A) 21 %; MCH 28.5 pg (25.0-35.0); MCHC 30.7 g/dL (31.0-37.0); MCV 92.8 fL (80.0-100.0); Mean Platelet Volume 8.3; Monocytes # (A) 0.2 k/uL (0-1.0); Monocytes % (A) 3 %; Neutrophils # (A) 4.7 k/uL (1.3-7.7); Neutrophils % (A) 74 %; Platelet Count 276 k/uL (150-450); RBC 3.13 m/uL (3.80-5.40); RDW 15.3 % (11.5-15.5); WBC 6.4 k/uL (3.8-10.6)
[2020-01-27 04:41] LABS: African American GFR (CKD) >90 (>60 ml/min/1.73 sqM); Anion Gap 3 mmol/L; Blood Urea Nitrogen 21 mg/dL (7-17); Carbon Dioxide 29 mmol/L (22-30); Chloride 111 mmol/L (98-107); Glucose 145 mg/dL (74-99); Non-African American GFR(CKD) >90 (>60 ml/min/1.73 sqM); Potassium 3.9 mmol/L (3.5-5.1); Sodium 143 mmol/L (137-145)
[2020-01-27 04:58] LABS: ABG Base Excess 5.6 mmol/L; ABG HCO3 30 mmol/L (21-25); ABG Oxygen Saturation 98.2 % (94-97); ABG PCO2 48 mmHg (35-45); ABG PH 7.41 (7.35-7.45); ABG PO2 117 mmHg (83-108); ABG TCO2 32 mmol/L (19-24); Allen Test Performed? Yes
[2020-01-27 06:33] LABS: Glucose,Whole Blood 154 mg/dL (75-99)
[2020-01-27] MEDS ORDERED: POTASSIUM CHLORIDE ER 20 MEQ TAB.ER PO SCH (07:00)
[2020-01-27] MEDS ORDERED: POTASSIUM BICARBONATE/CIT AC 20 MEQ TABLET.EFF NG-TUBE SCH ×2 (07:00→13:00)
--- NOTE | 2020-01-27 07:38 | XR ---
EXAMINATION TYPE: XR chest 1V portable DATE OF EXAM: 01/27/2020 CLINICAL HISTORY: Difficulty breathing progress study. TECHNIQUE: Single AP portable semiupright view of the chest is obtained. COMPARISON: Chest x-ray from one day earlier and older studies FINDINGS: Stable endotracheal and orogastric tubes. Patchy bibasilar opacities remain present. Upper lungs remain clear without pneumothorax. Cardiac silhouette size stable and upper limits of normal. Osseous structures are intact. IMPRESSION: Bibasilar acute infiltrate and/or atelectasis, no significant change from one day earlier .
[2020-01-27] MEDS: CHLORHEXIDINE GLUCONATE 15 ML CUP MUCOUS MEM SCH ×2 (08:05→20:32)
[2020-01-27] MEDS: FUROSEMIDE 10 MG/ML 4 ML VIAL IV SCH (08:05)
[2020-01-27] MEDS: NICOTINE 21MG/24HR PATCH TRANSDERM SCH (08:06)
[2020-01-27] MEDS: PANTOPRAZOLE 40 MG/10 ML VIAL IVP SCH ×2 (08:06→20:32)
[2020-01-27] MEDS: CEFEPIME 1 GM in SODIUM CHLORIDE 0.9% 50 ML IVPB SCH ×2 (08:07→20:32)
[2020-01-27] MEDS: busPIRone HCl 10 MG TAB PO SCH ×2 (08:07→20:32)
[2020-01-27] MEDS: ASPIRIN 325 MG TAB PO SCH (08:07)
[2020-01-27] MEDS: SERTRALINE 100 MG TAB PO SCH (08:08)
[2020-01-27] MEDS: ENOXAPARIN 40 MG/0.4 ML SYRINGE SQ SCH (08:10)
[2020-01-27] MEDS: NOREPINEPHRINE 32 MG in SODIUM CHLORIDE 0.9% 218 ML IV SCH (08:10)
[2020-01-27] MEDS: atenoloL 50 MG TAB PO SCH (08:11)
[2020-01-27 12:17] LABS: Glucose,Whole Blood 143 mg/dL (75-99)
--- NOTE | 2020-01-27 12:54 | P.PN ---
Subjective Progress Note Date: 01/27/20 01/27/2020, patient is sedated on propofol at 50 mics and fentanyl at 1 mundo and the patient successfully mechanical ventilator. She is improving slowly. Overall pulmonary mechanics have improved and the patient is demonstrating drop in her peak and static pressure. Peak airway pressures around 30 and the plateau pressure is down to 23. The patient is on a low tidal volume mechanical ventilation, assist control mode rate of 28 with a tidal volume of 650 and FiO2 of 40% with a PEEP of 12. The patient has demonstrated some improvement in his chest x-ray findings on today's evaluation. Note that there is still bilateral pulmonary infiltrates and ET tube is still in good location. The blood gases from today showed a pH of 7.41 with a pCO2 of 48 and pO2 of 117. The patient got diabetes and the patient is a negative fluid balance of 6.9 L over the past 24 hours. The patient is tolerating enteral feeding for nutritional support. The patient is on accommodation of cefepime and vancomycin. The patient is afebrile. No other significant events overnight. She has a triple lumen catheter in the right femoral vein. She has also not likely catheter in the left foot. Objective - Vital Signs Vital signs: Vital Signs Temp 98.2 F 01/27/20 12:00 Pulse 54 L 01/27/20 12:00 Resp 22 01/27/20 12:00 BP 101/66 01/27/20 12:00 Pulse Ox 97 01/27/20 12:00 Intake & Output 01/26/20 01/27/20 01/27/20 18:59 06:59 18:59 Intake Total 3452.536 0443.530 646.620 Output Total 3220 675 3060 Balance -1507.558 963.530 -2413.380 Weight 115.8 kg 117.4 kg 117.4 kg Intake: IV 410 751.0 170 Cefepime 1 gm In Sodium 50.0 50 Chloride 0.9% 50 ml @ 12. 5 mls/hr IVPB Q12HR [facility] Rx#:[id number] Potassium Chloride 20 meq 150 In Water For Injection 1 100ml.bag @ 50 mls/hr IVPB ONCE STA Rx#: [id number] Sodium Chloride 0.9% 1, 260 200 120 000 ml @ 20 mls/hr IV . Q24H [facility] Rx#:[id number] Vancomycin 1,750 mg In 501 Sodium Chloride 0.9% 500 ml 500 ml @ 167 mls/hr IVPB Q12H [facility] Rx#: [id number] Intake, IV Titration 1152.442 467.530 296.620 Amount Cefepime 1 gm In Sodium 50 Chloride 0.9% 50 ml @ 12. 5 mls/hr IVPB Q12HR [facility] Rx#:[id number] Vancomycin 1,750 mg In 500 Sodium Chloride 0.9% 500 ml 500 ml @ 167 mls/hr IVPB Q12H [facility] Rx#: [id number] fentaNYL (PF) 1,000 mcg 96.239 90.768 100 In Sodium Chloride 0.9% 80 ml @ Per Protocol IV . Q0M [facility] Rx#:[id number] propofoL 1,000 mg In 506.203 376.762 196.620 Empty Bag 1 bag @ Titrate IV .Q0M [facility] Rx#: [id number] Oral 110 Tube Feeding 90 220 120 Other 60 90 60 Output: Gastric Drainage 100 Urine 3120 675 3060 Other: Voiding Method Indwelling Catheter Indwelling Catheter Indwelling Catheter ABP, PAP, CO, CI - Last Documented Arterial Blood Pressure 133/64 - Exam Gen. appearance the patient is sedated and she was taken off the paralytics for now, comfortable likely distress suggest the mechanical ventilator Head exam was generally normal. There was no scleral icterus or corneal arcus. Mucous membranes were moist. Neck was supple and without jugular venous distension, thyromegaly, or carotid bruits. Carotids were easily palpable bilaterally. There was no adenopathy. Orogastric and orotracheal tube are both in place and there is no neck stiffness. Mucous membranes are moist. Lungs sounds are diminished bilaterally and crackles can be appreciated lung bases bilaterally. Cardiac exam revealed the PMI to be normally situated and sized. The rhythm was regular and no extrasystoles were noted during several minutes of auscultation. The first and second heart sounds were normal and physiologic splitting of the second heart sound was noted. There were no murmurs, rubs, clicks, or gallops. Abdominal exam revealed normal bowel sounds. The abdomen was soft, non-tender, and without masses, organomegaly, or appreciable enlargement of the abdominal aorta. Examination of the extremities revealed easily palpable radial, femoral and pedal pulses. There was no cyanosis, clubbing or edema. Examination of the skin revealed no evidence of significant rashes, suspicious appearing nevi or other concerning lesions. Neurologically the patient is sedated - Labs CBC & Chem 7: 01/27/20 04:17 01/27/20 12:12 Labs: Abnormal Lab Results - Last 24 Hours (Table) 01/26/20 01/26/20 01/27/20 Range/Units 04:45 17:48 02:00 RBC 3.06 L (3.80-5.40) m/uL Hgb 9.0 L (11.4-16.0) gm/dL Hct 29.0 L (34.0-46.0) % MCHC (31.0-37.0) g/dL RDW 15.6 H (11.5-15.5) % ABG pCO2 (35-45) mmHg ABG pO2 (83-108) mmHg ABG HCO3 (21-25) mmol/L ABG Total CO2 (19-24) mmol/L ABG O2 Saturation (94-97) % Chloride (98-107) mmol/L BUN (7-17) mg/dL Glucose (74-99) mg/dL POC Glucose (mg/dL) 127 H 128 H (75-99) mg/dL Calcium (8.4-10.2) mg/dL 01/27/20 01/27/20 01/27/20 Range/Units 04:17 04:17 04:54 RBC 3.13 L (3.80-5.40) m/uL Hgb 8.9 L (11.4-16.0) gm/dL Hct 29.0 L (34.0-46.0) % MCHC 30.7 L (31.0-37.0) g/dL RDW (11.5-15.5) % ABG pCO2 48 H (35-45) mmHg ABG pO2 117 H (83-108) mmHg ABG HCO3 30 H (21-25) mmol/L ABG Total CO2 32 H (19-24) mmol/L ABG O2 Saturation 98.2 H (94-97) % Chloride 111 H (98-107) mmol/L BUN 21 H (7-17) mg/dL Glucose 145 H (74-99) mg/dL POC Glucose (mg/dL) (75-99) mg/dL Calcium 8.0 L (8.4-10.2) mg/dL 01/27/20 01/27/20 Range/Units 06:31 12:13 RBC (3.80-5.40) m/uL Hgb (11.4-16.0) gm/dL Hct (34.0-46.0) % MCHC (31.0-37.0) g/dL RDW (11.5-15.5) % ABG pCO2 (35-45) mmHg ABG pO2 (83-108) mmHg ABG HCO3 (21-25) mmol/L ABG Total CO2 (19-24) mmol/L ABG O2 Saturation (94-97) % Chloride (98-107) mmol/L BUN (7-17) mg/dL Glucose (74-99) mg/dL POC Glucose (mg/dL) 154 H 143 H (75-99) mg/dL Calcium (8.4-10.2) mg/dL Microbiology - Last 24 Hours (Table) 01/24/20 12:47 Blood Culture - Preliminary Blood No Growth after 48 hours 01/24/20 12:41 Blood Culture - Preliminary Blood No Growth after 48 hours 01/24/20 12:15 Gram Stain - Final Sputum Sputum Culture - Final Assessment and Plan Plan: 1 acute hypoxic respiratory failure due to ARDS. Consider aspiration related ARDS. Consider drug-induced ARDS. Patient is currently sedated and she was taken off the paralytics. The patient is currently being mechanically ventilated, volume cycle with a low tidal volume regimen. Adequate oxygenation and ventilation. In fact oxygenation is improved and there is an ongoing drop in the peak and static pressure on today's evaluation. The chest x-ray is improving however the chest x-ray is still showing diffuse but the pulmonary infiltrates. Chest x-ray was noted. Blood gases was noted. 2 previous history of prolonged respiratory failure/ARDS due to substance abuse and drug overdose 3 history of methamphetamine abuse 4 altered mental status essentially secondary to drug overdose 5 history of depression 6 obesity with a BMI of 44.3 7 coffee-ground material from OG-tube, consider possibility of an upper GI bleed, inactive in stable and the patient will be started on enteral feeding for nutritional support 8 anemia of chronic disease , stable hemoglobin Plan Continue sedation with propofol and fentanyl Drop the PEEP down to 10 and potential down to 8 and the patient's pulse oximetries above 92% Continue IV Solu-Medrol Continue cefepime and stop vancomycin Change IV fluids to KVO continued IV Lasix 40 mg IV push on a daily basis Continue tube feeds SCDs to lower extremities for DVT prophylaxis We'll continue to follow make further recommendations based on her progress. Condition is critical. This evaluation was done and morning 30 minutes. Time with Patient: Greater than 30
[2020-01-27] MEDS: SODIUM CHLORIDE 0.9% 1,000 ML IV SCH (16:10)
[2020-01-27 18:09] LABS: Glucose,Whole Blood 120 mg/dL (75-99)
--- NOTE | 2020-01-27 22:57 | P.PN ---
Progress Note - Text Progress Note Date: 01/27/20 Chief Complaint: Short of breath cough History of presenting complaint: This is a 44-year-old patient who follows that MAGY Ramos. Patient had initially presented to [facility] with altered mental status. She had taken methamphetamines and also overdose of baclofen. She went into respiratory distress and had to be intubated. She was extubated the following morning that is yesterday. Was short of breath. Somewhat agitated. Requiring 2 L of oxygen . I did talk to the patient about getting transferred to [facility] on for psychiatry evaluation but patient refuses. Patient was here in the hospital in May 2019 felt be possible overdose of calcium channel blockers or Atarax. Patient to hospital for a few days. Has underlying depression and anxiety. I had to certify the patient. She was very anxious and depressed. And patient was transferred over here to [facility] Patient had developed a fever felt to have aspiration pneumonia and was started on vancomycin and Zosyn. An bronchodilators. Patient had previous suicide attempts. Patient related to respiratory distress and was intubated. [id number]. Ventilator-FiO2 40 and a PEEP of 10. Drips include IV propofol and IV fentanyl.. 2 feeding 30 mL an hour. Has an OG tube. Telemetry shows sinus rhythm. Progress review of systems-patient intubated Active Medications Acetaminophen (Tylenol Tab) 1,000 mg PO Q6H PRN PRN Reason: Pain Last Admin: 01/22/20 13:20 Dose: 1,000 mg Documented by: Albuterol/Ipratropium (Duoneb 0.5 Mg-3 Mg/3 Ml Soln) 3 ml INHALATION RT-Q4H [facility] Last Admin: 01/27/20 19:41 Dose: 3 ml Documented by: Artificial Tears (Artificial Tear Drops) 2 drops BOTH EYES Q4HR [facility] Last Admin: 01/27/20 20:32 Dose: 2 drops Documented by: Aspirin (Aspirin) 325 mg PO DAILY [facility] Last Admin: 01/27/20 08:07 Dose: 325 mg Documented by: Atenolol (Tenormin) 50 mg PO DAILY [facility] Last Admin: 01/27/20 08:11 Dose: 50 mg Documented by: Buspirone HCl (Buspar) 30 mg PO BID [facility] Last Admin: 01/27/20 20:32 Dose: 30 mg Documented by: Chlorhexidine Gluconate (Peridex) 15 ml MUCOUS MEM BID [facility] Last Admin: 01/27/20 20:32 Dose: 15 ml Documented by: Enoxaparin Sodium (Lovenox) 40 mg SQ DAILY [facility] Last Admin: 01/27/20 08:10 Dose: 40 mg Documented by: Furosemide (Lasix) 40 mg IV DAILY [facility] Last Admin: 01/27/20 08:05 Dose: 40 mg Documented by: Haloperidol Lactate (Haldol) 2 mg IVP Q2HR PRN PRN Reason: Agitation or Acute Psychosis Last Admin: 01/27/20 03:12 Dose: 2 mg Documented by: Cefepime HCl 1 gm/ Sodium (Chloride) 50 mls @ 12.5 mls/hr IVPB Q12HR [facility] Last Admin: 01/27/20 20:32 Dose: 12.5 mls/hr Documented by: Sodium Chloride (Saline 0.9%) 1,000 mls @ 20 mls/hr IV .Q24H [facility] Last Admin: 01/27/20 16:10 Dose: 20 mls/hr Documented by: Propofol 1,000 mg/ IV Solution 100 mls @ 0 mls/hr IV .Q0M [facility]; Protocol Last Admin: 01/27/20 22:31 Dose: 50 mcg/kg/min, 34.59 mls/hr Documented by: Fentanyl Citrate 1,000 mcg/ (Sodium Chloride) 100 mls @ 0 mls/hr IV .Q0M [facility]; Protocol Last Admin: 01/27/20 21:11 Dose: 9.92 mls/hr, 9.92 mls/hr Documented by: Norepinephrine Bitartrate 32 (mg/ Sodium Chloride) 250 mls @ 2.827 mls/hr IV .Q24H [facility]; Protocol Last Admin: 01/27/20 08:10 Dose: Not Given Documented by: Insulin Aspart (Novolog) 0 unit SQ Q6H [facility]; Protocol Last Admin: 01/27/20 18:17 Dose: Not Given Documented by: Methylprednisolone Sodium Succinate (Solu-Medrol) 60 mg IV Q6HR [facility] Last Admin: 01/27/20 18:19 Dose: 60 mg Documented by: Metoclopramide HCl (Reglan) 10 mg IVP Q6HR [facility] Last Admin: 01/27/20 18:19 Dose: 10 mg Documented by: Miscellaneous Information (Potassium Per Protocol) 1 each MISCELLANE DAILY PRN; Protocol PRN Reason: Per Protocol Miscellaneous Information (Potassium Per Protocol) 1 each MISCELLANE DAILY PRN; Protocol PRN Reason: Per Protocol Miscellaneous Information (Potassium Per Protocol) 1 each MISCELLANE DAILY PRN; Protocol PRN Reason: Per Protocol Naloxone HCl (Narcan) 0.2 mg IV Q2M PRN PRN Reason: Opioid Reversal Nicotine (Habitrol 21mg/24hr Patch) 1 patch TRANSDERM DAILY [facility] Last Admin: 01/27/20 08:06 Dose: 1 patch Documented by: Pantoprazole Sodium (Protonix) 40 mg IVP BID [facility] Last Admin: 01/27/20 20:32 Dose: 40 mg Documented by: Sertraline HCl (Zoloft) 200 mg PO DAILY [facility] Last Admin: 01/27/20 08:08 Dose: 200 mg Documented by: Physical examination: VITAL SIGNS: 98.2, 54, 22, 101/66, 97% on the ventilator GENERAL: Laying in bed, intubated. EYES: Pupils equal. Conjunctiva normal. HEENT: External appearance of nose and ears normal, oral intratracheal tube NECK: JVD not raised; masses not palpable. HEART: First and second heart sounds are normal; no edema. LUNGS: Respiratory rate increased, decreased breath sounds ABDOMEN: Soft, nontender, liver spleen not palpable, no masses palpable. PSYCH: Patient sedated INVESTIGATIONS, reviewed in the clinical context: White count 6.4 hemoglobin 8.9 potassium 3.9 creatinine 0.57 Previous testing White count 17 hemoglobin 11 potassium 3.5 Chest x-ray film personally reviewed by me-ET tube, bilateral infiltrates Previous testing White count 12.5 hemoglobin 10.3 potassium 3.2 creatinine 0.61 procalcitonin 0.12 Chest x-ray film personally reviewed by me-bilateral infiltrates Assessment: -Bilateral pneumonia suspected gram-negative organism and aspiration pneumonia causing severe sepsis-slow to respond -Early ARDS picture. -Acute delirium on the metabolic encephalopathy from the same -Methamphetamine use and overdose of baclofen -Possible bipolar disorder with depression and anxiety -Acute hypoxic and hypercapnic failure from above,-requiring ventilator -slow to respond (patient also was intubated at [facility] then extubated.) -Morbid obesity BMI 40.5 -Hypoalbuminemia-acute phase reactant -Hypo kalemia -Normocytic anemia -Acute respiratory acidosis Plan: Patient remains on IV cefepime, IV vancomycin IV fentanyl, , IV propofol, IV Solu-Medrol,. Ventilated. Prognosis guarded.
[2020-01-27 23:06] LABS: Glucose,Whole Blood 150 mg/dL (75-99)
[2020-01-28] MEDS: IPRATROPIUM-ALBUTEROL 3 ML NEB INHALATION SCH ×5 (03:07→20:10)
[2020-01-28] MEDS: ARTIFICIAL TEARS-HYPROMELLOSE DROPS 15 ML BTL BOTH EYES SCH ×6 (04:14→23:47)
[2020-01-28 04:19] LABS: Basophils % (A) 0 %; Eosinophils % (A) 0 %; HCT 30.3 % (34.0-46.0); HGB 9.3 gm/dL (11.4-16.0); Hypochromasia Slight; Lymphocytes # (A) 1.7 k/uL (1.0-4.8); Lymphocytes % (A) 20 %; MCH 28.4 pg (25.0-35.0); MCHC 30.8 g/dL (31.0-37.0); MCV 92.2 fL (80.0-100.0); Mean Platelet Volume 8.6; Monocytes # (A) 0.3 k/uL (0-1.0); Monocytes % (A) 4 %; Neutrophils # (A) 6.1 k/uL (1.3-7.7); Neutrophils % (A) 74 %; Platelet Count 362 k/uL (150-450); RBC 3.29 m/uL (3.80-5.40); RDW 15.1 % (11.5-15.5); WBC 8.3 k/uL (3.8-10.6)
[2020-01-28 04:27] LABS: African American GFR (CKD) >90 (>60 ml/min/1.73 sqM); Anion Gap 2 mmol/L; Blood Urea Nitrogen 23 mg/dL (7-17); Calcium 8.1 mg/dL (8.4-10.2); Carbon Dioxide 32 mmol/L (22-30); Chloride 109 mmol/L (98-107); Glucose 145 mg/dL (74-99); Non-African American GFR(CKD) >90 (>60 ml/min/1.73 sqM); Potassium 3.9 mmol/L (3.5-5.1); Sodium 143 mmol/L (137-145)
[2020-01-28] MEDS ORDERED: POTASSIUM BICARBONATE/CIT AC 20 MEQ TABLET.EFF NG-TUBE SCH (05:00)
[2020-01-28 05:07] LABS: ABG Base Excess 6.6 mmol/L; ABG HCO3 31 mmol/L (21-25); ABG Oxygen Saturation 97.2 % (94-97); ABG PCO2 50 mmHg (35-45); ABG PO2 95 mmHg (83-108); ABG TCO2 33 mmol/L (19-24)
[2020-01-28 05:08] LABS: Glucose,Whole Blood 150 mg/dL (75-99)
[2020-01-28] MEDS: INSULIN ASPART (NovoLOG) 100 UNIT/ML VIAL SQ SCH ×4 (05:10→23:46)
[2020-01-28] MEDS: methylPREDNISolone SOD SUCCI 125 MG/2 ML VIAL IV SCH ×3 (05:11→17:36)
[2020-01-28] MEDS: METOCLOPRAMIDE 5 MG/ML 2 ML VIAL IVP SCH ×4 (05:11→23:46)
[2020-01-28 05:24] LABS: Allen Test Performed? no
[2020-01-28] MEDS: NOREPINEPHRINE 32 MG in SODIUM CHLORIDE 0.9% 218 ML IV SCH (06:22)
[2020-01-28] MEDS: CEFEPIME 1 GM in SODIUM CHLORIDE 0.9% 50 ML IVPB SCH ×2 (08:01→20:43)
[2020-01-28] MEDS: FUROSEMIDE 10 MG/ML 4 ML VIAL IV SCH (08:01)
[2020-01-28] MEDS: PANTOPRAZOLE 40 MG/10 ML VIAL IVP SCH ×2 (08:02→20:43)
[2020-01-28] MEDS: fentaNYL (PF) 1,000 MCG in SODIUM CHLORIDE 0.9% 80 ML IV SCH (08:10)
--- NOTE | 2020-01-28 08:41 | XR ---
EXAMINATION TYPE: XR chest 1V portable DATE OF EXAM: 01/28/2020 CLINICAL HISTORY: Tube placement TECHNIQUE: Portable supine view of the chest obtained COMPARISON: 01/27/2020 chest radiograph FINDINGS: Endotracheal tube distal tip midway between the clavicular heads and the shaw. Enteric tu be side-port over the projected stomach, with nonvisualization of the distal tip. Low lung volumes ac centuate the cardiomediastinal silhouette. Bibasilar airspace opacities and small pleural effusions a ppear similar given differences in technique. Evaluation for pneumothorax limited by supine technique . IMPRESSION: 1. Bibasilar airspace opacities and small bilateral pleural effusions not significantly changed versu s 01/27/2020 comparison. 2. Endotracheal tube and enteric tube demonstrate appropriate radiographic position.
[2020-01-28] MEDS: ENOXAPARIN 40 MG/0.4 ML SYRINGE SQ SCH (09:28)
[2020-01-28] MEDS: SERTRALINE 100 MG TAB PO SCH (09:28)
[2020-01-28] MEDS: CHLORHEXIDINE GLUCONATE 15 ML CUP MUCOUS MEM SCH ×2 (09:28→20:00)
[2020-01-28] MEDS: ASPIRIN 325 MG TAB PO SCH (09:28)
[2020-01-28] MEDS: atenoloL 50 MG TAB PO SCH (09:28)
[2020-01-28] MEDS: busPIRone HCl 10 MG TAB PO SCH ×2 (09:28→20:51)
[2020-01-28] MEDS: NICOTINE 21MG/24HR PATCH TRANSDERM SCH (09:29)
[2020-01-28 11:31] LABS: Glucose,Whole Blood 147 mg/dL (75-99)
--- NOTE | 2020-01-28 11:42 | P.PN ---
Subjective Progress Note Date: 01/28/20 01/28/2020 patient is being seen for a follow-up. Doing well. No specific issues overnight. Sedated with propofol at 50 g and fentanyl micrograms per KG per minute. Tolerating enteral feeding for nutritional support with vital high protein at the rate of 30 mL an hour. Cardiac rhythm is sinus and the patient is hemodynamically stable. She remains on a mechanical ventilator on assist control mode at the rate of 24, tidal volume of 650, FiO2 of 40% with a PEEP of 8. Peak pressures 26. Static pressure is 19. The blood gases from today showed a pH of 7.40 with a pCO2 of 50 and pO2 of 95. Chest x-ray shows about the pulmonary infiltrates and the tubes are all in good location. The white cell count is at 8.3. Hemoglobin is at 9.3. The BUN is at 23 with a creatinine of 0.5 and the rest of the electrodes are all within normal limits. Objective - Vital Signs Vital signs: Vital Signs Temp 98.8 F 01/28/20 08:00 Pulse 65 01/28/20 11:00 Resp 28 H 01/28/20 11:00 BP 112/68 01/28/20 07:00 Pulse Ox 95 01/28/20 11:00 Intake & Output 01/27/20 01/28/20 01/28/20 18:59 06:59 18:59 Intake Total 6354.454 8717.791 477.050 Output Total 3575 660 3250 Balance -2498.380 587.791 -2772.950 Weight 115.3 kg 116.3 kg Intake: IV 290 290 150 Cefepime 1 gm In Sodium 50 50 50 Chloride 0.9% 50 ml @ 12. 5 mls/hr IVPB Q12HR [facility] Rx#:[id number] Sodium Chloride 0.9% 1, 240 240 100 000 ml @ 20 mls/hr IV . Q24H [facility] Rx#:[id number] Intake, IV Titration 396.620 507.791 237.050 Amount fentaNYL (PF) 1,000 mcg 100 86.139 127.164 In Sodium Chloride 0.9% 80 ml @ Per Protocol IV . Q0M [facility] Rx#:[id number] propofoL 1,000 mg In 296.620 421.652 109.886 Empty Bag 1 bag @ Titrate IV .Q0M [facility] Rx#: [id number] Tube Feeding 300 360 60 Other 90 90 30 Output: Urine 2538 481 3250 Other: Voiding Method Indwelling Catheter Indwelling Catheter Indwelling Catheter ABP, PAP, CO, CI - Last Documented Arterial Blood Pressure 130/60 - Exam Gen. appearance the patient is sedated and she was taken off the paralytics for now, comfortable likely distress suggest the mechanical ventilator Head exam was generally normal. There was no scleral icterus or corneal arcus. Mucous membranes were moist. Neck was supple and without jugular venous distension, thyromegaly, or carotid bruits. Carotids were easily palpable bilaterally. There was no adenopathy. O rogastric and orotracheal tube are both in place and there is no neck stiffness. Mucous membranes are moist. Lungs sounds are diminished bilaterally and crackles can be appreciated lung bases bilaterally. Cardiac exam revealed the PMI to be normally situated and sized. The rhythm was regular and no extrasystoles were noted during several minutes of auscultation. The first and second heart sounds were normal and physiologic splitting of the second heart sound was noted. There were no murmurs, rubs, clicks, or gallops. Abdominal exam revealed normal bowel sounds. The abdomen was soft, non-tender, and without masses, organomegaly, or appreciable enlargement of the abdominal aorta. Examination of the extremities revealed easily palpable radial, femoral and pedal pulses. There was no cyanosis, clubbing or edema. Examination of the skin revealed no evidence of significant rashes, suspicious a ppearing nevi or other concerning lesions. Neurologically the patient is sedated - Labs CBC & Chem 7: 01/28/20 04:10 01/28/20 04:10 Labs: Abnormal Lab Results - Last 24 Hours (Table) 01/27/20 01/27/20 01/27/20 Range/Units 12:13 18:07 23:04 RBC (3.80-5.40) m/uL Hgb (11.4-16.0) gm/dL Hct (34.0-46.0) % MCHC (31.0-37.0) g/dL ABG pCO2 (35-45) mmHg ABG HCO3 (21-25) mmol/L ABG Total CO2 (19-24) mmol/L ABG O2 Saturation (94-97) % Chloride (98-107) mmol/L Carbon Dioxide (22-30) mmol/L BUN (7-17) mg/dL Glucose (74-99) mg/dL POC Glucose (mg/dL) 143 H 120 H 150 H (75-99) mg/dL Calcium (8.4-10.2) mg/dL 01/28/20 01/28/20 01/28/20 Range/Units 04:10 04:10 05:07 RBC 3.29 L (3.80-5.40) m/uL Hgb 9.3 L (11.4-16.0) gm/dL Hct 30.3 L (34.0-46.0) % MCHC 30.8 L (31.0-37.0) g/dL ABG pCO2 50 H (35-45) mmHg ABG HCO3 31 H (21-25) mmol/L ABG Total CO2 33 H (19-24) mmol/L ABG O2 Saturation 97.2 H (94-97) % Chloride 109 H (98-107) mmol/L Carbon Dioxide 32 H (22-30) mmol/L BUN 23 H (7-17) mg/dL Glucose 145 H (74-99) mg/dL POC Glucose (mg/dL) (75-99) mg/dL Calcium 8.1 L (8.4-10.2) mg/dL 01/28/20 01/28/20 Range/Units 05:07 11:28 RBC (3.80-5.40) m/uL Hgb (11.4-16.0) gm/dL Hct (34.0-46.0) % MCHC (31.0-37.0) g/dL ABG pCO2 (35-45) mmHg ABG HCO3 (21-25) mmol/L ABG Total CO2 (19-24) mmol/L ABG O2 Saturation (94-97) % Chloride (98-107) mmol/L Carbon Dioxide (22-30) mmol/L BUN (7-17) mg/dL Glucose (74-99) mg/dL POC Glucose (mg/dL) 150 H 147 H (75-99) mg/dL Calcium (8.4-10.2) mg/dL Microbiology - Last 24 Hours (Table) 01/24/20 12:47 Blood Culture - Preliminary Blood No Growth after 72 hours 01/24/20 12:41 Blood Culture - Preliminary Blood No Growth after 72 hours Assessment and Plan Plan: 1 acute hypoxic respiratory failure due to ARDS. Consider aspiration related ARDS. Consider drug-induced ARDS. Patient is currently sedated and she was taken off the paralytics. The patient is currently being mechanically ventilated, volume cycle with a low tidal volume regimen. Adequate oxygenation and ventilation. In fact oxygenation is improved and there is an ongoing drop in the peak and static pressure on today's evaluation. The chest x-ray is improving however the chest x-ray is still showing diffuse but the pulmonary infiltrates. Chest x-ray was noted. Blood gases was noted. 2 previous history of prolonged respiratory failure/ARDS due to substance abuse and drug overdose 3 history of methamphetamine abuse 4 altered mental status essentially secondary to drug overdose 5 history of depression 6 obesity with a BMI of 44.3 7 coffee-ground material from OG-tube, consider possibility of an upper GI bleed, inactive in stable and the patient will be started on enteral feeding for nutritional support 8 anemia of chronic disease , stable hemoglobin Plan Patient is improving in terms of her pulmonary mechanics and there is obvious improvement in oxygenation and significant lowering of the peak and static pressures. Recommendations are to following Drop the PEEP down to 5 Increase the tidal volume up to 400 Monitor chest x-ray Monitor blood gases Give a dose of Lasix 40 mg IV push Hold tube feeds Hold sedation Check weaning parameters Assess candidacy to weaning We'll continue to follow and possibly sedation with the next 24-48 hours depending on her condition. Condition is still critical. Evaluation was done more than 30 minutes. Time with Patient: Greater than 30
[2020-01-28 11:59] LABS: ABG HCO3 36 mmol/L (21-25); ABG PCO2 49 mmHg (35-45); ABG PH 7.47 (7.35-7.45); ABG PO2 104 mmHg (83-108); ABG TCO2 37 mmol/L (19-24)
[2020-01-28] MEDS: HALOPERIDOL LACTATE 5 MG/ML 1 ML VIAL IVP PRN (13:35)
[2020-01-28] MEDS: POTASSIUM CHLORIDE 20 MEQ in WATER FOR INJECTION 1 100ML.BAG IVPB SCH ×2 (17:40→19:21)
[2020-01-28 18:20] LABS: Glucose,Whole Blood 131 mg/dL (75-99)
--- NOTE | 2020-01-28 18:38 | P.PN ---
Progress Note - Text Progress Note Date: 01/28/20 Chief Complaint: Short of breath cough History of presenting complaint: This is a 44-year-old patient who follows that MAGY Ramos. Patient had initially presented to [facility] with altered mental status. She had taken methamphetamines and also overdose of baclofen. She went into respiratory distress and had to be intubated. She was extubated the following morning that is yesterday. Was short of breath. Somewhat agitated. Requiring 2 L of oxygen . I did talk to the patient about getting transferred to [facility] on for psychiatry evaluation but patient refuses. Patient was here in the hospital in May 2019 felt be possible overdose of calcium channel blockers or Atarax. Patient to hospital for a few days. Has underlying depression and anxiety. I had to certify the patient. She was very anxious and depressed. And patient was transferred over here to [facility] Patient had developed a fever felt to have aspiration pneumonia and was started on vancomycin and Zosyn. An bronchodilators. Patient had previous suicide attempts. Patient related to respiratory distress and was intubated. [id number] earlier today. Nasal cannula. Lethargic but awake. Tired. Following commands. Has a sitter. Progress review of systems-patient lethargic Active Medications Acetaminophen (Tylenol Tab) 1,000 mg PO Q6H PRN PRN Reason: Pain Last Admin: 01/22/20 13:20 Dose: 1,000 mg Documented by: Albuterol/Ipratropium (Duoneb 0.5 Mg-3 Mg/3 Ml Soln) 3 ml INHALATION RT-Q4H PENDING SALE TO [facility] Last Admin: 01/28/20 17:04 Dose: Not Given Documented by: Artificial Tears (Artificial Tear Drops) 2 drops BOTH EYES Q4HR PENDING SALE TO [facility] Last Admin: 01/28/20 17:01 Dose: Not Given Documented by: Aspirin (Aspirin) 325 mg PO DAILY PENDING SALE TO [facility] Last Admin: 01/28/20 09:28 Dose: 325 mg Documented by: Atenolol (Tenormin) 50 mg PO DAILY PENDING SALE TO [facility] Last Admin: 01/28/20 09:28 Dose: 50 mg Documented by: Buspirone HCl (Buspar) 30 mg PO BID PENDING SALE TO [facility] Last Admin: 01/28/20 09:28 Dose: 30 mg Documented by: Chlorhexidine Gluconate (Peridex) 15 ml MUCOUS MEM BID PENDING SALE TO [facility] Last Admin: 01/28/20 09:28 Dose: 15 ml Documented by: Enoxaparin Sodium (Lovenox) 40 mg SQ DAILY PENDING SALE TO [facility] Last Admin: 01/28/20 09:28 Dose: 40 mg Documented by: Furosemide (Lasix) 40 mg IV DAILY PENDING SALE TO [facility] Last Admin: 01/28/20 08:01 Dose: 40 mg Documented by: Haloperidol Lactate (Haldol) 2 mg IVP Q2HR PRN PRN Reason: Agitation or Acute Psychosis Last Admin: 01/28/20 13:35 Dose: 2 mg Documented by: Cefepime HCl 1 gm/ Sodium (Chloride) 50 mls @ 12.5 mls/hr IVPB Q12HR [facility] Last Admin: 01/28/20 08:01 Dose: 12.5 mls/hr Documented by: Sodium Chloride (Saline 0.9%) 1,000 mls @ 20 mls/hr IV .Q24H PENDING SALE TO [facility] Last Admin: 01/27/20 16:10 Dose: 20 mls/hr Documented by: Norepinephrine Bitartrate 32 (mg/ Sodium Chloride) 250 mls @ 2.827 mls/hr IV .Q 24H PENDING SALE TO [facility]; Protocol Last Admin: 01/28/20 06:22 Dose: Not Given Documented by: Potassium Chloride 20 meq/ IV (Solution) 100 mls @ 50 mls/hr IVPB Q2H [facility]; Protocol Stop: 01/28/20 20:44 Last Admin: 01/28/20 17:40 Dose: 50 mls/hr Documented by: Insulin Aspart (Novolog) 0 unit SQ Q6H [facility]; Protocol Last Admin: 01/28/20 18:19 Dose: Not Given Documented by: Methylprednisolone Sodium Succinate (Solu-Medrol) 60 mg IV Q6HR PENDING SALE TO [facility] Last Admin: 01/28/20 17:36 Dose: 60 mg Documented by: Metoclopramide HCl (Reglan) 10 mg IVP Q6HR PENDING SALE TO [facility] Last Admin: 01/28/20 17:37 Dose: Not Given Documented by: Miscellaneous Information (Potassium Per Protocol) 1 each MISCELLANE DAILY PRN; Protocol PRN Reason: Per Protocol Miscellaneous Information (Potassium Per Protocol) 1 each MISCELLANE DAILY PRN; Protocol PRN Reason: Per Protocol Miscellaneous Information (Potassium Per Protocol) 1 each MISCELLANE DAILY PRN; Protocol PRN Reason: Per Protocol Naloxone HCl (Narcan) 0.2 mg IV Q2M PRN PRN Reason: Opioid Reversal Nicotine (Habitrol 21mg/24hr Patch) 1 patch TRANSDERM DAILY PENDING SALE TO [facility] Last Admin: 01/28/20 09:29 Dose: 1 patch Documented by: Pantoprazole Sodium (Protonix) 40 mg IVP BID PENDING SALE TO [facility] Last Admin: 01/28/20 08:02 Dose: 40 mg Documented by: Sertraline HCl (Zoloft) 200 mg PO DAILY PENDING SALE TO [facility] Last Admin: 01/28/20 09:28 Dose: 200 mg Documented by: Physical examination: VITAL SIGNS: 98.8, 56, 24, 111/49, 95% on nasal cannula GENERAL: Propped up in bed, lethargic but awake slow. EYES: Pupils equal. Conjunctiva normal. HEENT: External appearance of nose and ears normal, oral cavity-dry NECK: JVD not raised; masses not palpable. HEART: First and second heart sounds are normal; no edema. LUNGS: Respiratory rate increased, decreased breath sounds ABDOMEN: Soft, nontender, liver spleen not palpable, no masses palpable. PSYCH: Attempted to answer some questions INVESTIGATIONS, reviewed in the clinical context: White count 8.3 hemoglobin 9.3 platelets 362 potassium 2.9 creatinine 0.58 Previous testing White count 17 hemoglobin 11 potassium 3.5 Chest x-ray film personally reviewed by me-ET tube, bilateral infiltrates Previous testing White count 12.5 hemoglobin 10.3 potassium 3.2 creatinine 0.61 procalcitonin 0.12 Chest x-ray film personally reviewed by me-bilateral infiltrates Assessment: -Bilateral pneumonia suspected gram-negative organism and aspiration pneumonia causing severe sepsis- -Early ARDS picture. Improving -Acute delirium on the metabolic encephalopathy from the same -Methamphetamine use and overdose of baclofen -Possible bipolar disorder with depression and anxiety -Acute hypoxic and hypercapnic failure from above,-requiring ventilator - (patient also was intubated at [facility] then extubated.) Extubated today on January 27 -Morbid obesity BMI 40.5 -Hypoalbuminemia-acute phase reactant -Hypo kalemia -Normocytic anemia -Acute respiratory acidosis improved Plan: Patient on bronchodilators, IV cefepime,. Has a sitter at the bedside. On IV Solu-Medrol. Cutback to 40 mg every 8. Follow
[2020-01-28] MEDS: SODIUM CHLORIDE 0.9% 1,000 ML IV SCH (19:12)
[2020-01-28] MEDS ORDERED: IPRATROPIUM-ALBUTEROL 3 ML NEB INHALATION PRN (20:14)
[2020-01-28 23:39] LABS: Glucose,Whole Blood 129 mg/dL (75-99)
[2020-01-29] MEDS ORDERED: methylPREDNISolone SOD SUCCI 40 MG/ML 1 ML VIAL IV SCH
[2020-01-29] MEDS ORDERED: POTASSIUM CHLORIDE ER 20 MEQ TAB.ER PO SCH (01:00)
[2020-01-29] MEDS: ARTIFICIAL TEARS-HYPROMELLOSE DROPS 15 ML BTL BOTH EYES SCH (03:24)
[2020-01-29 06:06] LABS: Glucose,Whole Blood 118 mg/dL (75-99)
[2020-01-29] MEDS: INSULIN ASPART (NovoLOG) 100 UNIT/ML VIAL SQ SCH ×3 (06:17→18:32)
[2020-01-29] MEDS: METOCLOPRAMIDE 5 MG/ML 2 ML VIAL IVP SCH (06:20)
[2020-01-29 07:10] LABS: Basophils % (A) 0 %; Eosinophils # (A) 0.1 k/uL (0-0.7); Eosinophils % (A) 1 %; HCT 32.8 % (34.0-46.0); HGB 10.2 gm/dL (11.4-16.0); Hypochromasia Slight; Lymphocytes # (A) 3.5 k/uL (1.0-4.8); Lymphocytes % (A) 30 %; MCH 28.9 pg (25.0-35.0); MCHC 31.1 g/dL (31.0-37.0); MCV 92.8 fL (80.0-100.0); Mean Platelet Volume 8.3; Monocytes # (A) 0.6 k/uL (0-1.0); Monocytes % (A) 5 %; Neutrophils # (A) 7.1 k/uL (1.3-7.7); Neutrophils % (A) 62 %; Platelet Count 386 k/uL (150-450); RBC 3.54 m/uL (3.80-5.40); RDW 14.8 % (11.5-15.5); WBC 11.4 k/uL (3.8-10.6)
[2020-01-29 07:25] LABS: African American GFR (CKD) >90 (>60 ml/min/1.73 sqM); Anion Gap 3 mmol/L; Blood Urea Nitrogen 23 mg/dL (7-17); Calcium 7.9 mg/dL (8.4-10.2); Carbon Dioxide 27 mmol/L (22-30); Chloride 110 mmol/L (98-107); Glucose 113 mg/dL (74-99); Non-African American GFR(CKD) >90 (>60 ml/min/1.73 sqM); Potassium 3.7 mmol/L (3.5-5.1); Sodium 140 mmol/L (137-145)
--- NOTE | 2020-01-29 07:35 | XR ---
EXAMINATION TYPE: XR chest 1V portable DATE OF EXAM: 01/29/2020 CLINICAL HISTORY: Difficulty breathing progress study. TECHNIQUE: Single AP portable upright view of the chest is obtained. COMPARISON: Chest x-ray from one day earlier FINDINGS: Interval extubation with endotracheal and orogastric tubes. Persistent low lung volumes an d bibasilar opacities. Some silhouetting of the left heart border redemonstrated. Cardiac silhouette size stable and mildly enlarged. Overlying EKG leads. Osseous structures are intact. IMPRESSION: Interval extubation. Persistent low lung volumes with bibasilar acute infiltrate and/or a telectasis.
[2020-01-29] MEDS: IPRATROPIUM-ALBUTEROL 3 ML NEB INHALATION SCH ×4 (07:57→19:54)
[2020-01-29] MEDS: FUROSEMIDE 10 MG/ML 4 ML VIAL IV SCH (09:00)
[2020-01-29] MEDS: PANTOPRAZOLE 40 MG/10 ML VIAL IVP SCH ×2 (09:01→21:15)
[2020-01-29] MEDS: SERTRALINE 100 MG TAB PO SCH (09:01)
[2020-01-29] MEDS: atenoloL 50 MG TAB PO SCH (09:02)
[2020-01-29] MEDS: NICOTINE 21MG/24HR PATCH TRANSDERM SCH (09:02)
[2020-01-29] MEDS: ENOXAPARIN 40 MG/0.4 ML SYRINGE SQ SCH (09:02)
[2020-01-29] MEDS: ASPIRIN 325 MG TAB PO SCH (09:02)
[2020-01-29] MEDS: busPIRone HCl 10 MG TAB PO SCH ×2 (09:02→20:28)
[2020-01-29] MEDS: predniSONE 20 MG TAB PO SCH (09:02)
[2020-01-29 11:27] VITALS: BMI 40.5
[2020-01-29 11:45] LABS: Glucose,Whole Blood 129 mg/dL (75-99)
--- NOTE | 2020-01-29 12:13 | P.PN ---
Subjective Progress Note Date: 01/29/20 01/29/2020, the patient is extubated and currently she is on oxygen at 3 L per minute nasal cannula. Chest x-ray showing improvement and by the pulmonary infiltrates. She is awake and alert. She is following commands and answering questions. She is weak in all 4 extremities and this is consistent with global weakness than being a focal weakness. No fever no chills. No headaches. Mental status seems to be appropriate at this point in time. IV fluids to KVO and the patient is a negative fluid balance of 3.2 L and the patient is going to receive another dose of Lasix. The arterial line catheter has been removed. She does have a triple-lumen cath in her right lung that may need to be also r emoved. She has a sitter at the bedside. Psychiatric evaluation is pending for now. She required a dose of Haldol for agitation yesterday and she hasn't required further medication. Objective - Vital Signs Vital signs: Vital Signs Temp 98.6 F 01/29/20 08:00 Pulse 65 01/29/20 11:00 Resp 15 01/29/20 11:00 BP 103/78 01/29/20 11:00 Pulse Ox 90 L 01/29/20 11:00 Intake & Output 01/28/20 01/29/20 01/29/20 18:59 06:59 18:59 Intake Total 717.050 290 500 Output Total 3625 660 1885 Balance -2907.950 -370 -1385 Weight 114 kg 114 kg Intake: IV 290 290 100 Cefepime 1 gm In Sodium 50 50 Chloride 0.9% 50 ml @ 12. 5 mls/hr IVPB Q12HR [facility] Rx#:[id number] Sodium Chloride 0.9% 1, 240 240 100 000 ml @ 20 mls/hr IV . Q24H [facility] Rx#:[id number] Intake, IV Titration 337.050 Amount Potassium Chloride 20 meq 100 In Water For Injection 1 100ml.bag @ 50 mls/hr IVPB Q2H [facility] Rx#: [id number] fentaNYL (PF) 1,000 mcg 127.164 In Sodium Chloride 0.9% 80 ml @ Per Protocol IV . Q0M [facility] Rx#:[id number] propofoL 1,000 mg In 109.886 Empty Bag 1 bag @ Titrate IV .Q0M [facility] Rx#: [id number] Oral 400 Tube Feeding 60 Other 30 Output: Urine 4277 140 5205 Other: Voiding Method Indwelling Catheter Indwelling Catheter Indwelling Catheter # Bowel Movements 1 ABP, PAP, CO, CI - Last Documented Arterial Blood Pressure 158/74 - Exam Gen. appearance the patient is calm and comfortable extubated on 3 L of oxygen by nasal cannula Head exam was generally normal. There was no scleral icterus or corneal arcus. Mucous membranes were moist. Neck was supple and without jugular venous distension, thyromegaly, or carotid bruits. Carotids were easily palpable bilaterally. There was no adenopathy. no neck stiffness. Mucous membranes are moist. Lungs sounds are diminished bilaterally and crackles can be appreciated lung bases bilaterally. Cardiac exam revealed the PMI to be normally situated and sized. The rhythm was regular and no extrasystoles were noted during several minutes of auscultation. The first and second heart sounds were normal and physiologic splitting of the second heart sound was noted. There were no murmurs, rubs, clicks, or gallops. Abdominal exam revealed normal bowel sounds. The abdomen was soft, non-tender, and without masses, organomegaly, or appreciable enlargement of the abdominal aorta. Examination of the extremities revealed easily palpable radial, femoral and pedal pulses. There was no cyanosis, clubbing or edema. Examination of the skin revealed no evidence of significant rashes, suspicious appearing nevi or other concerning lesions. Neurologically the patient is awake and oriented 3 and the patient has global weakness in all 4 extremities - Labs CBC & Chem 7: 01/29/20 06:42 01/29/20 06:42 Labs: Abnormal Lab Results - Last 24 Hours (Table) 01/28/20 01/28/20 01/28/20 Range/Units 18:18 22:35 23:38 WBC (3.8-10.6) k/uL RBC (3.80-5.40) m/uL Hgb (11.4-16.0) gm/dL Hct (34.0-46.0) % Potassium 2.1 L* (3.5-5.1) mmol/L Chloride (98-107) mmol/L BUN (7-17) mg/dL Glucose (74-99) mg/dL POC Glucose (mg/dL) 131 H 129 H (75-99) mg/dL Calcium (8.4-10.2) mg/dL 01/29/20 01/29/20 01/29/20 Range/Units 06:05 06:42 06:42 WBC 11.4 H (3.8-10.6) k/uL RBC 3.54 L (3.80-5.40) m/uL Hgb 10.2 L (11.4-16.0) gm/dL Hct 32.8 L (34.0-46.0) % Potassium (3.5-5.1) mmol/L Chloride 110 H (98-107) mmol/L BUN 23 H (7-17) mg/dL Glucose 113 H (74-99) mg/dL POC Glucose (mg/dL) 118 H (75-99) mg/dL Calcium 7.9 L (8.4-10.2) mg/dL 01/29/20 Range/Units 11:43 WBC (3.8-10.6) k/uL RBC (3.80-5.40) m/uL Hgb (11.4-16.0) gm/dL Hct (34.0-46.0) % Potassium (3.5-5.1) mmol/L Chloride (98-107) mmol/L BUN (7-17) mg/dL Glucose (74-99) mg/dL POC Glucose (mg/dL) 129 H (75-99) mg/dL Calcium (8.4-10.2) mg/dL Microbiology - Last 24 Hours (Table) 01/24/20 12:47 Blood Culture - Preliminary Blood No Growth after 96 hours 01/24/20 12:41 Blood Culture - Preliminary Blood No Growth after 96 hours Assessment and Plan Plan: 1 acute hypoxic respiratory failure due to ARDS. Consider aspiration related ARDS. Consider drug-induced ARDS.. The patient improved. The patient was weaned off the mechanical ventilator and the patient was extubated to oxygen 3 L per minute nasal cannula. The patient's chest x-ray is also improving. Currently she is resting comfortably in bed and she has no major respiratory distress. 2 previous history of prolonged respiratory failure/ARDS due to substance abuse and drug overdose 3 history of methamphetamine abuse 4 altered mental status essentially secondary to drug overdose 5 history of depression 6 obesity with a BMI of 44.3 7 coffee-ground material recovered and the patient is being offered diet today. 8 anemia of chronic disease , stable hemoglobin Plan Continue with pulmonary toileting and the patient will be offered a incentive spirometer. Discontinued IV Solu Medrol start the patient prednisone burst taper This continued IV cefepime Lovenox 40 mg subcu for DVT prophylaxis Continue atenolol 50 mg by mouth daily Continue BuSpar Continue Zoloft Psychiatric evaluation Sitter at the bedside till the patient is cleared by psychiatry we'll continue to follow and she may need to stay in the ICU for another 24 hours.
[2020-01-29 17:52] LABS: Glucose,Whole Blood 182 mg/dL (75-99)
[2020-01-29] MEDS: SODIUM CHLORIDE 0.9% 1,000 ML IV SCH (18:36)
[2020-01-29] MEDS: POTASSIUM CHLORIDE ER 20 MEQ TAB.ER PO SCH ×3 (18:41→23:23)
--- NOTE | 2020-01-29 19:39 | P.PN ---
Progress Note - Text Progress Note Date: 01/29/20 Chief Complaint: Short of breath cough History of presenting complaint: This is a 44-year-old patient who follows that MAGY Ramos. Patient had initially presented to [facility] with altered mental status. She had taken methamphetamines and also overdose of baclofen. She went into respiratory distress and had to be intubated. She was extubated the following morning that is yesterday. Was short of breath. Somewhat agitated. Requiring 2 L of oxygen . I did talk to the patient about getting transferred to [facility] on for psychiatry evaluation but patient refuses. Patient was here in the hospital in May 2019 felt be possible overdose of calcium channel blockers or Atarax. Patient to hospital for a few days. Has underlying depression and anxiety. I had to certify the patient. She was very anxious and depressed. And patient was transferred over here to [facility] Patient had developed a fever felt to have aspiration pneumonia and was started on vancomycin and Zosyn. An bronchodilators. Patient had previous suicide attempts. Patient related to respiratory distress and was intubated. Extubated on January 27. [id number] nasal cannula. More relaxed. Decreased shortness of breath. Did sit up in a chair. Did take about 25% of her breakfast. Tired Review of systems: Was done for constitutional, cardiovascular, GI, pulmonary. relevant finding as above A Active Medications Acetaminophen (Tylenol Tab) 1,000 mg PO Q6H PRN PRN Reason: Pain Last Admin: 01/22/20 13:20 Dose: 1,000 mg Documented by: Albuterol/Ipratropium (Duoneb 0.5 Mg-3 Mg/3 Ml Soln) 3 ml INHALATION RT-QID PENDING SALE TO [facility] Last Admin: 01/29/20 15:22 Dose: 3 ml Documented by: Albuterol/Ipratropium (Duoneb 0.5 Mg-3 Mg/3 Ml Soln) 3 ml INHALATION RT-Q2H PRN PRN Reason: Shortness Of Breath Or Wheezing Aspirin (Aspirin) 325 mg PO DAILY PENDING SALE TO [facility] Last Admin: 01/29/20 09:02 Dose: 325 mg Documented by: Atenolol (Tenormin) 50 mg PO DAILY PENDING SALE TO [facility] Last Admin: 01/29/20 09:02 Dose: 50 mg Documented by: Buspirone HCl (Buspar) 30 mg PO BID PENDING SALE TO [facility] Last Admin: 01/29/20 09:02 Dose: 30 mg Documented by: Enoxaparin Sodium (Lovenox) 40 mg SQ DAILY PENDING SALE TO [facility] Last Admin: 01/29/20 09:02 Dose: 40 mg Documented by: Furosemide (Lasix) 40 mg IV DAILY PENDING SALE TO [facility] Last Admin: 01/29/20 09:00 Dose: 40 mg Documented by: Haloperidol Lactate (Haldol) 2 mg IVP Q2HR PRN PRN Reason: Agitation or Acute Psychosis Last Admin: 01/28/20 13:35 Dose: 2 mg Documented by: Sodium Chloride (Saline 0.9%) 1,000 mls @ 20 mls/hr IV .Q24H PENDING SALE TO [facility] Last Admin: 01/29/20 18:36 Dose: 20 mls/hr Documented by: Insulin Aspart (Novolog) 0 unit SQ Q6H PENDING SALE TO [facility]; Protocol Last Admin: 01/29/20 18:32 Dose: 3 unit Documented by: Miscellaneous Information (Potassium Per Protocol) 1 each MISCELLANE DAILY PRN; Protocol PRN Reason: Per Protocol Miscellaneous Information (Potassium Per Protocol) 1 each MISCELLANE DAILY PRN; Protocol PRN Reason: Per Protocol Miscellaneous Information (Potassium Per Protocol) 1 each MISCELLANE DAILY PRN; Protocol PRN Reason: Per Protocol Naloxone HCl (Narcan) 0.2 mg IV Q2M PRN PRN Reason: Opioid Reversal Nicotine (Habitrol 21mg/24hr Patch) 1 patch TRANSDERM DAILY PENDING SALE TO [facility] Last Admin: 01/29/20 09:02 Dose: 1 patch Documented by: Pantoprazole Sodium (Protonix) 40 mg IVP BID PENDING SALE TO [facility] Last Admin: 01/29/20 09:01 Dose: 40 mg Documented by: Potassium Chloride (K-Dur 20) 20 meq PO Q1HR PENDING SALE TO [facility]; Protocol Stop: 01/29/20 20:01 Last Admin: 01/29/20 18:41 Dose: 20 meq Documented by: Prednisone () 40 mg PO DAILY PENDING SALE TO [facility] Last Admin: 01/29/20 09:02 Dose: 40 mg Documented by: Sertraline HCl (Zoloft) 200 mg PO DAILY PENDING SALE TO [facility] Last Admin: 01/29/20 09:01 Dose: 200 mg Documented by: Physical examination: VITAL SIGNS: 99.4, 60, 21, 103/71, 94% on 4 L GENERAL: Sitting on side of bed, tired awake EYES: Pupils equal. Conjunctiva normal. HEENT: External appearance of nose and ears normal, oral cavity-dry NECK: JVD not raised; masses not palpable. HEART: First and second heart sounds are normal; no edema. LUNGS: Respiratory rate increased, decreased breath sounds ABDOMEN: Soft, nontender, liver spleen not palpable, no masses palpable. PSYCH: Answering simple questions INVESTIGATIONS, reviewed in the clinical context: White count 9.4 hemoglobin 10.2 potassium 3.7 creatinine 0.55 Chest x-ray film personally reviewed by me-some scattered infiltrates Previous testing White count 17 hemoglobin 11 potassium 3.5 Chest x-ray film personally reviewed by me-ET tube, bilateral infiltrates Previous testing White count 12.5 hemoglobin 10.3 potassium 3.2 creatinine 0.61 procalcitonin 0.12 Chest x-ray film personally reviewed by me-bilateral infiltrates Assessment: -Bilateral pneumonia suspected gram-negative organism and aspiration pneumonia causing severe sepsis-clinically improving -Early ARDS picture. Improving -Acute delirium on the metabolic encephalopathy from the same-improving -Methamphetamine use and overdose of baclofen -Possible bipolar disorder with depression and anxiety -Acute hypoxic and hypercapnic failure from above,-requiring ventilator - (patient also was intubated at [facility] then extubated.) Extubated-January 27-no nasal cannula -Morbid obesity BMI 40.5 -Hypoalbuminemia-acute phase reactant -Hypo kalemia -Normocytic anemia -Acute respiratory acidosis improved Plan: Lead Teller as discontinued the IV cefepime. Is also being switched over to oral steroids. Other medications to continue. We will inform psychiatry to evaluate the patient.
[2020-01-29] MEDS: HALOPERIDOL LACTATE 5 MG/ML 1 ML VIAL IVP PRN ×2 (21:15→23:23)
[2020-01-30 00:27] LABS: Glucose,Whole Blood 101 mg/dL (75-99)
[2020-01-30] MEDS: INSULIN ASPART (NovoLOG) 100 UNIT/ML VIAL SQ SCH ×4 (00:37→18:51)
[2020-01-30] MEDS: POTASSIUM CHLORIDE ER 20 MEQ TAB.ER PO SCH ×4 (00:39→07:10)
[2020-01-30 04:48] LABS: Basophils # (A) 0.1 k/uL (0-0.2); Basophils % (A) 1 %; Eosinophils # (A) 0.2 k/uL (0-0.7); Eosinophils % (A) 2 %; HCT 34.8 % (34.0-46.0); HGB 10.9 gm/dL (11.4-16.0); Hypochromasia Slight; Lymphocytes # (A) 4.6 k/uL (1.0-4.8); Lymphocytes % (A) 42 %; MCH 28.6 pg (25.0-35.0); MCHC 31.3 g/dL (31.0-37.0); MCV 91.6 fL (80.0-100.0); Mean Platelet Volume 7.9; Monocytes # (A) 0.5 k/uL (0-1.0); Monocytes % (A) 4 %; Neutrophils # (A) 5.5 k/uL (1.3-7.7); Neutrophils % (A) 50 %; Platelet Count 363 k/uL (150-450)
[2020-01-30 04:58] LABS: African American GFR (CKD) >90 (>60 ml/min/1.73 sqM); Anion Gap 4 mmol/L; Blood Urea Nitrogen 17 mg/dL (7-17); Calcium 8.1 mg/dL (8.4-10.2); Carbon Dioxide 28 mmol/L (22-30); Chloride 105 mmol/L (98-107); Glucose 91 mg/dL (74-99); Non-African American GFR(CKD) >90 (>60 ml/min/1.73 sqM); Potassium 3.1 mmol/L (3.5-5.1); Sodium 137 mmol/L (137-145)
--- NOTE | 2020-01-30 07:31 | XR ---
EXAMINATION TYPE: XR chest 1V portable DATE OF EXAM: 01/30/2020 COMPARISON: 01/29/2020 HISTORY: Abnormal x-ray TECHNIQUE: Single frontal view of the chest is obtained. FINDINGS: Persistent diffuse interstitial pattern. No pneumothorax. No sizable effusion. Heart size stable. Reduced inspiration noted. Osseous structures stable. IMPRESSION: Stable predominantly interstitial pattern correlate for interstitial pneumonitis or pneu monia. Venous congestion not excluded.
[2020-01-30] MEDS: IPRATROPIUM-ALBUTEROL 3 ML NEB INHALATION SCH ×4 (07:57→20:31)
[2020-01-30] MEDS: PANTOPRAZOLE 40 MG/10 ML VIAL IVP SCH ×2 (08:19→20:13)
[2020-01-30] MEDS: FUROSEMIDE 10 MG/ML 4 ML VIAL IV SCH (08:19)
[2020-01-30] MEDS: ACETAMINOPHEN TAB 500 MG TAB PO PRN ×2 (08:19→13:55)
[2020-01-30] MEDS: ENOXAPARIN 40 MG/0.4 ML SYRINGE SQ SCH (08:20)
[2020-01-30] MEDS: busPIRone HCl 10 MG TAB PO SCH ×2 (08:20→20:13)
[2020-01-30] MEDS: NICOTINE 21MG/24HR PATCH TRANSDERM SCH (08:20)
[2020-01-30] MEDS: ASPIRIN 325 MG TAB PO SCH (08:20)
[2020-01-30] MEDS: predniSONE 20 MG TAB PO SCH (08:20)
[2020-01-30] MEDS: SERTRALINE 100 MG TAB PO SCH (08:21)
[2020-01-30] MEDS: atenoloL 50 MG TAB PO SCH (10:06)
[2020-01-30 12:07] LABS: Glucose,Whole Blood 178 mg/dL (75-99)
--- NOTE | 2020-01-30 12:12 | P.PN ---
Subjective Progress Note Date: 01/30/20 01/30/2020, the patient is doing extremely well on 3 L of oxygen by nasal cannula. Chest x-ray shows no acute abnormalities. She is having no respiratory distress. No cough or sputum production. Tolerating her diet. No nausea. No vomiting. No abdominal pain. No chest pain. No altered mentation. Upon further questioning, she denies taking crystal meth and she admits to take only records and for recreational purposes. She has no suicidal intentions. She has no intention to harm herself or others. She is on IV Lasix. No fever. No chills. No night sweats. No other complaints otherwise. The lines have been all discontinued Objective - Vital Signs Vital signs: Vital Signs Temp 99.5 F 01/30/20 08:00 Pulse 70 01/30/20 11:23 Resp 25 H 01/30/20 11:00 BP 88/56 01/30/20 10:00 Pulse Ox 96 01/30/20 10:00 Intake & Output 01/29/20 01/30/20 01/30/20 18:59 06:59 18:59 Intake Total 1060 480 548 Output Total 2610 565 835 Balance -1550 -85 -287 Weight 114 kg 113.9 kg Intake: IV 180 240 80 Sodium Chloride 0.9% 1, 180 240 80 000 ml @ 20 mls/hr IV . Q24H [facility] Rx#:[id number] Oral 880 240 468 Output: Urine 2610 565 835 Other: Voiding Method Indwelling Catheter Indwelling Catheter Indwelling Catheter ABP, PAP, CO, CI - Last Documented Arterial Blood Pressure 158/74 - Exam Gen. appearance the patient is calm and comfortable extubated on 3 L of oxygen by nasal cannula Head exam was generally normal. There was no scleral icterus or corneal arcus. Mucous membranes were moist. Neck was supple and without jugular venous distension, thyromegaly, or carotid bruits. Carotids were easily palpable bilaterally. There was no adenopathy. no neck stiffness. Mucous membranes are moist. Lungs sounds are diminished bilaterally and crackles can be appreciated lung bases bilaterally. Cardiac exam revealed the PMI to be normally situated and sized. The rhythm was regular and no extrasystoles were noted during several minutes of auscultation. The first and second heart sounds were normal and physiologic splitting of the second heart sound was noted. There were no murmurs, rubs, clicks, or gallops. Abdominal exam revealed normal bowel sounds. The abdomen was soft, non-tender, and without masses, organomegaly, or appreciable enlargement of the abdominal aorta. Examination of the extremities revealed easily palpable radial, femoral and pedal pulses. There was no cyanosis, clubbing or edema. Examination of the skin revealed no evidence of significant rashes, suspicious appearing nevi or other concerning lesions. Neurologically the patient is awake and oriented 3 and the patient has global weakness in all 4 extremities - Labs CBC & Chem 7: 01/30/20 04:38 01/30/20 04:38 Labs: Abnormal Lab Results - Last 24 Hours (Table) 01/29/20 01/29/20 01/29/20 Range/Units 16:13 17:50 22:21 WBC (3.8-10.6) k/uL Hgb (11.4-16.0) gm/dL Potassium 3.2 L 2.8 L (3.5-5.1) mmol/L POC Glucose (mg/dL) 182 H (75-99) mg/dL Calcium (8.4-10.2) mg/dL 01/30/20 01/30/20 01/30/20 Range/Units 00:14 04:38 04:38 WBC 11.0 H (3.8-10.6) k/uL Hgb 10.9 L (11.4-16.0) gm/dL Potassium 3.1 L (3.5-5.1) mmol/L POC Glucose (mg/dL) 101 H (75-99) mg/dL Calcium 8.1 L (8.4-10.2) mg/dL 01/30/20 Range/Units 12:05 WBC (3.8-10.6) k/uL Hgb (11.4-16.0) gm/dL Potassium (3.5-5.1) mmol/L POC Glucose (mg/dL) 178 H (75-99) mg/dL Calcium (8.4-10.2) mg/dL Microbiology - Last 24 Hours (Table) 01/24/20 12:47 Blood Culture - Preliminary Blood No Growth after 120 hours 01/24/20 12:41 Blood Culture - Preliminary Blood No Growth after 120 hours Assessment and Plan Plan: 1 acute hypoxic respiratory failure due to ARDS. Consider aspiration related ARDS. Consider drug-induced ARDS.. The patient improved. The patient was weaned off the mechanical ventilator and the patient was extubated to oxygen 3 L per minute nasal cannula. The patient's chest x-ray is also improving. Cur rently she is resting comfortably in bed and she has no major respiratory distress. 2 previous history of prolonged respiratory failure/ARDS due to substance abuse and drug overdose 3 history of methamphetamine abuse 4 altered mental status essentially secondary to drug overdose 5 history of depression 6 obesity with a BMI of 44.3 7 coffee-ground material recovered and the patient is being offered diet today. 8 anemia of chronic disease , stable hemoglobin Plan Change Lasix to oral 40 mg by mouth daily Continue DuoNeb about treatment [id number] Prednisone burst taper Advance diet as tolerated BuSpar was restarted Continue aspirin Continue Tenormin Transfer this patient to medical floor. No active psychiatric issues at this point in time. No suicidal or homicidal ideations.
[2020-01-30] MEDS: HALOPERIDOL LACTATE 5 MG/ML 1 ML VIAL IVP PRN ×3 (14:44→20:13)
[2020-01-30] MEDS: SODIUM CHLORIDE 0.9% 1,000 ML IV SCH (16:47)
[2020-01-30] MEDS ORDERED: POTASSIUM CHLORIDE ER 20 MEQ TAB.ER PO SCH (17:00)
[2020-01-30] MEDS: LORazepam 2 MG/ML INJ IV PRN (18:46)
[2020-01-30 18:51] LABS: Glucose,Whole Blood 110 mg/dL (75-99)
--- NOTE | 2020-01-30 21:00 | P.PN ---
Progress Note - Text Progress Note Date: 01/30/20 Chief Complaint: Short of breath cough History of presenting complaint: This is a 44-year-old patient who follows that MAGY Ramos. Patient had initially presented to [facility] with altered mental status. She had taken methamphetamines and also overdose of baclofen. She went into respiratory distress and had to be intubated. She was extubated the following morning that is yesterday. Was short of breath. Somewhat agitated. Requiring 2 L of oxygen . I did talk to the patient about getting transferred to [facility] on for psychiatry evaluation but patient refuses. Patient was here in the hospital in May 2019 felt be possible overdose of calcium channel blockers or Atarax. Patient to hospital for a few days. Has underlying depression and anxiety. I had to certify the patient. She was very anxious and depressed. And patient was transferred over here to [facility] Patient had developed a fever felt to have aspiration pneumonia and was started on vancomycin and Zosyn. An bronchodilators. Patient had previous suicide attempts. Patient related to respiratory distress and was intubated. Extubated on January 27. [id number] nasal cannula. Looking better. Some anxiety. Did eat well. Some cough. Pending psychiatry evaluation. Patient is requesting not to be transferred to psychiatry unit. Review of systems: Was done for constitutional, cardiovascular, GI, pulmonary. relevant finding as above Active Medications Acetaminophen (Tylenol Tab) 1,000 mg PO Q6H PRN PRN Reason: Pain Last Admin: 01/30/20 13:55 Dose: 1,000 mg Documented by: Albuterol/Ipratropium (Duoneb 0.5 Mg-3 Mg/3 Ml Soln) 3 ml INHALATION RT-QID [facility] Last Admin: 01/30/20 20:31 Dose: Not Given Documented by: Albuterol/Ipratropium (Duoneb 0.5 Mg-3 Mg/3 Ml Soln) 3 ml INHALATION RT-Q2H PRN PRN Reason: Shortness Of Breath Or Wheezing Aspirin (Aspirin) 325 mg PO DAILY [facility] Last Admin: 01/30/20 08:20 Dose: 325 mg Documented by: Atenolol (Tenormin) 50 mg PO DAILY [facility] Last Admin: 01/30/20 10:06 Dose: Not Given Documented by: Buspirone HCl (Buspar) 30 mg PO BID [facility] Last Admin: 01/30/20 20:13 Dose: 30 mg Documented by: Enoxaparin Sodium (Lovenox) 40 mg SQ DAILY [facility] Last Admin: 01/30/20 08:20 Dose: 40 mg Documented by: Furosemide (Lasix) 40 mg PO DAILY [facility] Haloperidol Lactate (Haldol) 2 mg IVP Q2HR PRN PRN Reason: Agitation or Acute Psychosis Last Admin: 01/30/20 20:13 Dose: 2 mg Documented by: Sodium Chloride (Saline 0.9%) 1,000 mls @ 20 mls/hr IV .Q24H [facility] Last Admin: 01/30/20 16:47 Dose: 20 mls/hr Documented by: Insulin Aspart (Novolog) 0 unit SQ Q6H [facility]; Protocol Last Admin: 01/30/20 18:51 Dose: Not Given Documented by: Lorazepam (Ativan) 0.5 mg IV Q8HR PRN PRN Reason: Anxiety Last Admin: 01/30/20 18:46 Dose: 0.5 mg Documented by: Miscellaneous Information (Potassium Per Protocol) 1 each MISCELLANE DAILY PRN; Protocol PRN Reason: Per Protocol Miscellaneous Information (Potassium Per Protocol) 1 each MISCELLANE DAILY PRN; Protocol PRN Reason: Per Protocol Miscellaneous Information (Potassium Per Protocol) 1 each MISCELLANE DAILY PRN; Protocol PRN Reason: Per Protocol Naloxone HCl (Narcan) 0.2 mg IV Q2M PRN PRN Reason: Opioid Reversal Nicotine (Habitrol 21mg/24hr Patch) 1 patch TRANSDERM DAILY [facility] Last Admin: 01/30/20 08:20 Dose: 1 patch Documented by: Pantoprazole Sodium (Protonix) 40 mg IVP BID [facility] Last Admin: 01/30/20 20:13 Dose: 40 mg Documented by: Prednisone () 40 mg PO DAILY [facility] Last Admin: 01/30/20 08:20 Dose: 40 mg Documented by: Sertraline HCl (Zoloft) 200 mg PO DAILY [facility] Last Admin: 01/30/20 08:21 Dose: 200 mg Documented by: Physical examination: VITAL SIGNS: 97.6, 82, 22, 88/62, 94% on 6 L GENERAL: Sitting up, more comfortable EYES: Pupils equal. Conjunctiva normal. HEENT: External appearance of nose and ears normal, oral cavity-dry NECK: JVD not raised; masses not palpable. HEART: First and second heart sounds are normal; no edema. LUNGS: Respiratory rate increased, decreased breath sounds ABDOMEN: Soft, nontender, liver spleen not palpable, no masses palpable. PSYCH: Answering questions INVESTIGATIONS, reviewed in the clinical context: White count 11 hemoglobin 10.9 potassium 3.1 creatinine 0.55 Previous testing White count 17 hemoglobin 11 potassium 3.5 Chest x-ray film personally reviewed by me-ET tube, bilateral infiltrates Previous testing White count 12.5 hemoglobin 10.3 potassium 3.2 creatinine 0.61 procalcitonin 0.12 Chest x-ray film personally reviewed by me-bilateral infiltrates Assessment: -Bilateral pneumonia suspected gram-negative organism and aspiration pneumonia causing severe sepsis-clinically improving -Early ARDS picture. Improving -Acute delirium on the metabolic encephalopathy from the same-improving -Methamphetamine use and overdose of baclofen -Possible bipolar disorder with depression and anxiety -Acute hypoxic and hypercapnic failure from above,-requiring ventilator - (patient also was intubated at [facility] then extubated.) Extubated-January 27-on nasal cannula -Morbid obesity BMI 40.5 -Hypoalbuminemia-acute phase reactant -Hypo kalemia -Normocytic anemia -Acute respiratory acidosis improved Plan: Doing overall better. Awaiting psychiatry input. It is a patient became rather anxious. His Ativan 0.5 mg every 8 when necessary. Patient looking to be moved out of the ICU.
[2020-01-31 00:04] LABS: Glucose,Whole Blood 104 mg/dL (75-99)
[2020-01-31] MEDS: INSULIN ASPART (NovoLOG) 100 UNIT/ML VIAL SQ SCH (00:24)
[2020-01-31] MEDS: HALOPERIDOL LACTATE 5 MG/ML 1 ML VIAL IVP PRN (00:32)
[2020-01-31] MEDS: LORazepam 2 MG/ML INJ IV PRN ×2 (02:52→11:32)
[2020-01-31 06:55] LABS: African American GFR (CKD) >90 (>60 ml/min/1.73 sqM); Anion Gap 3 mmol/L; Blood Urea Nitrogen 12 mg/dL (7-17); Calcium 7.8 mg/dL (8.4-10.2); Carbon Dioxide 29 mmol/L (22-30); Chloride 108 mmol/L (98-107); Glucose 118 mg/dL (74-99); Non-African American GFR(CKD) >90 (>60 ml/min/1.73 sqM); Potassium 3.5 mmol/L (3.5-5.1); Sodium 140 mmol/L (137-145)
[2020-01-31] MEDS: IPRATROPIUM-ALBUTEROL 3 ML NEB INHALATION SCH ×4 (07:31→19:03)
[2020-01-31] MEDS: PANTOPRAZOLE 40 MG/10 ML VIAL IVP SCH (08:55)
[2020-01-31] MEDS: SERTRALINE 100 MG TAB PO SCH (08:55)
[2020-01-31] MEDS: ASPIRIN 325 MG TAB PO SCH (08:55)
[2020-01-31] MEDS: ENOXAPARIN 40 MG/0.4 ML SYRINGE SQ SCH (08:55)
[2020-01-31] MEDS: busPIRone HCl 10 MG TAB PO SCH (08:55)
[2020-01-31] MEDS: NICOTINE 21MG/24HR PATCH TRANSDERM SCH (08:58)
[2020-01-31] MEDS: atenoloL 50 MG TAB PO SCH (08:58)
[2020-01-31] MEDS: predniSONE 20 MG TAB PO SCH (08:58)
[2020-01-31] MEDS ORDERED: FUROSEMIDE 40 MG TAB PO SCH (09:00)
[2020-01-31 11:42] VITALS: BP 107/73; PULSE 61; RESP 16; TEMP 97.9
--- NOTE | 2020-01-31 12:41 | P.PN ---
Subjective Progress Note Date: 01/31/20 Principal diagnosis: Acute hypoxic respiratory failure secondary to ARDS The patient is seen today 02/10/2020 in follow-up on the regular medical floor. She is currently sitting up in bed. Awake and alert. Oriented 3. crusher screen repairer at the bedside. She is maintaining good O2 saturations in the 90s on room air now. She continues to deny any suicidal intentions. She is hoping to go home. Objective - Vital Signs Vital signs: Vital Signs Temp 97.9 F 01/31/20 11:38 Pulse 61 01/31/20 11:38 Resp 16 01/31/20 11:38 BP 107/73 01/31/20 11:38 Pulse Ox 93 L 01/31/20 11:38 Intake & Output 01/30/20 01/31/20 01/31/20 18:59 06:59 18:59 Intake Total 768 520 480 Output Total 2030 450 Balance -1262 70 480 Weight 130.5 kg Intake: IV 100 320 Sodium Chloride 0.9% 1, 100 320 000 ml @ 20 mls/hr IV . Q24H [facility] Rx#:[id number] Oral 668 200 480 Output: Urine 2030 450 Other: Voiding Method Indwelling Catheter Indwelling Catheter Indwelling Catheter ABP, PAP, CO, CI - Last Documented Arterial Blood Pressure 158/74 - Exam Gen. appearance: Alert, pleasant 44-year-old female patient, on room air, the patient is calm and comfortable Head exam was generally normal. There was no scleral icterus or corneal arcus. Mucous membranes were moist. Neck was supple and without jugular venous distension, thyromegaly, or carotid bruits. Carotids were easily palpable bilaterally. There was no adenopathy. no neck stiffness. Mucous membranes are moist. Lungs sounds are diminished bilaterally and crackles can be appreciated lung bases bilaterally. Cardiac exam revealed the PMI to be normally situated and sized. The rhythm was regular and no extrasystoles were noted during several minutes of auscultation. The first and second heart sounds were normal and physiologic splitting of the second heart sound was noted. There were no murmurs, rubs, clicks, or gallops. Abdominal exam revealed normal bowel sounds. The abdomen was soft, non-tender, and without masses, organomegaly, or appreciable enlargement of the abdominal aorta. Examination of the extremities revealed easily palpable radial, femoral and pedal pulses. There was no cyanosis, clubbing or edema. Examination of the skin revealed no evidence of significant rashes, suspicious appearing nevi or other concerning lesions. Neurologically the patient is awake and oriented 3 and the patient has global weakness in all 4 extremities - Labs CBC & Chem 7: 01/30/20 04:38 01/31/20 05:50 Labs: Abnormal Lab Results - Last 24 Hours (Table) 01/30/20 01/30/20 01/31/20 Range/Units 18:50 23:51 05:50 Chloride 108 H (98-107) mmol/L Glucose 118 H (74-99) mg/dL POC Glucose (mg/dL) 110 H 104 H (75-99) mg/dL Calcium 7.8 L (8.4-10.2) mg/dL Microbiology - Last 24 Hours (Table) 01/24/20 12:47 Blood Culture - Final Blood No Growth after 144 hours 01/24/20 12:41 Blood Culture - Final Blood No Growth after 144 hours Assessment and Plan Assessment: 1 acute hypoxic respiratory failure due to ARDS. Consider aspiration related ARDS. Consider drug-induced ARDS.. The patient improved. The patient was weaned off the mechanical ventilator and the patient was extubated to oxygen 3 L per minute nasal cannula. The patient's chest x-ray is also improving. Currently she is resting comfortably in bed and she has no major respiratory distress. She is now on the regular medical floor. On room air. 2 previous history of prolonged respiratory failure/ARDS due to substance abuse and drug overdose 3 history of methamphetamine abuse 4 altered mental status essentially secondary to drug overdose 5 history of depression 6 obesity with a BMI of 44.3 7 coffee-ground material recovered and the patient is being offered diet today. 8 anemia of chronic disease , stable hemoglobin Plan The patient was seen and evaluated by Dr. Og She is currently stable from the pulmonary and critical care standpoint crusher screen repairer remains at the bedside Home once cleared medically I, the cosigning physician, performed a history & physical examination of the patient. Lungs sounds with few scattered crackles at the bases. Maintaining good O2 saturations in the 90s on room air. I discussed the assessment and plan of care with my nurse practitioner, Effie Ayala. I attest to the above note as dictated by her.
--- NOTE | 2020-01-31 13:31 | P.PN ---
Progress Note - Text Progress Note Date: 01/31/20 Interval History: Patient was seen today for psychiatric follow-up. Patient continues to endorse depressed mood and continues to have poor insight and judgment. She had a one-to-one sitter at her side. Patient just finished eating her meal today and was watching television. She continues to state that the overdose was unintentional. She was fairly superficial with racebook writer however was agreeable to be transferred to the mental health unit for further psychiatric treatment. She states that she slept poorly last night. At this time patient denies any suicidal or homical ideations, intent or plan. Patient denies any auditory, visual hallucinations and denies any paranoia or delusions. Patient denies any side effects from the medications and has been compliant with meds. Mental Status Exam: General Appearance: Patient appears to be older than stated age is alert, guarded/evasive, superficial at times. Patient appears to have poor hygiene and grooming wearing hospital gown with poor eye contact. Behavior: Patient is calmly lying in bed without any agitated behavior. Evasive and superficial. Speech: Patient's speech is fluent and nonpressured. soft tone Mood/Affect: Patient reports their mood is "depressed", affect is congruent Suicidality/Homicidality: Patient denies having any suicidal or homicidal ideation intent or plan. Perceptions: Patient denies any visual hallucinations and denies any auditory hallucinations Though content/process: Bryson, Logical and goal oriented. Guarded/evasive. Memory and concentration: AOX3, grossly intact for the purposes of this session. Judgment and insight: poor/impulsive Assessment Major depressive disorder, recurrent, severe Anxiety disorder unspecified History of methamphetamine abuse Cannabis use disorder Nicotine dependence Plan: -At this time patient DOES meet criteria for inpatient psychiatric admission. -Would recommend the following medication changes/additions: Continue with currently prescribed medications. -Continue 1:1 sitter for safety, the sitter should be continued up until patient is transferred to the mental health unit. -Cannot leave AMA at this time. Patient will need a petition and certification if attempting to leave AMA. -When medically stable, patient is eligible for transfer to a psych bed when available. -Psychiatry will sign off at this point, please contact with any questions.
[2020-01-31] MEDS: ACETAMINOPHEN TAB 500 MG TAB PO PRN (18:08)
--- NOTE | 2020-01-31 18:16 | P.DS ---
Providers Date of admission: 01/21/20 19:36 Expected date of discharge: 01/31/20 Attending physician: Weston Landa Consults: 01/21/20 21:26 Consult Physician Routine Consulting Provider: Kaylah Sarabia Consult Reason/Comments: post extubation; overdose Do you want consulting provider notified?: Yes, Notify in am 01/21/20 21:28 Consult Physician Routine Consulting Provider: Abraham Garcia Consult Reason/Comments: suicide; overdose Do you want consulting provider notified?: Yes, Notify in am 01/22/20 09:23 Consult Physician Stat Consulting Provider: Aleksandr Grigsby Consult Reason/Comments: Code stroke Visual changes Do you want consulting provider notified?: Yes 01/30/20 14:36 Consult Physician Routine Consulting Provider: Abraham Garcia Consult Reason/Comments: overdose/ assess suicide precautions Do you want consulting provider notified?: Already Contacted Primary care physician: DEBI Ramos Hospital Course: Chief Complaint: Short of breath cough History of presenting complaint: This is a 44-year-old patient who follows that MAGY Ramos. Patient had initially presented to [facility] with altered mental status. She had taken methamphetamines and also overdose of baclofen. She went into respiratory distress and had to be intubated. She was extubated the following morning that is yesterday. Was short of breath. Somewhat agitated. Requiring 2 L of oxygen. I did talk to the patient about getting transferred to [facility] on for psychiatry evaluation but patient refuses. Patient was h ere in the hospital in May 2019 felt be possible overdose of calcium channel blockers or Atarax. Was in the hospital for a few days. Has underlying depression and anxiety. I had to certify the patient. She was very anxious and depressed. And patient was transferred over here to [facility] Patient had developed a fever felt to have aspiration pneumonia and was started on vancomycin and Zosyn. An bronchodilators. Patient had previous suicide attempts. Patient went into respiratory distress and was intubated. Extubated on January 27. Treated bronchodilators steroids antibiotics. Today-doing well. Tolerating a diet. On room air. Breathing stable. Has been out of bed. Has a sitter. Discussed with Dr. Garcia from psychiatry. Patient be transferred there. Spoke with the EPS nurse Mirta. Patient off antibiotics. Change to handheld inhalers Discussion and discharge planning more than 35 minutes Consultation: Dr. Og from pulmonary from psychiatry Physical examination: VITAL SIGNS: 97.9, 61, 16, 1070 73, 93% room air GENERAL: Sitting up, comfortable EYES: Pupils equal. Conjunctiva normal. HEENT: External appearance of nose and ears normal, oral cavity-dry NECK: JVD not raised; masses not palpable. HEART: First and second heart sounds are normal; no edema. LUNGS: Respiratory rate increased, decreased breath sounds ABDOMEN: Soft, nontender, liver spleen not palpable, no masses palpable. PSYCH: Answering questions appropriately INVESTIGATIONS, reviewed in the clinical context: White count 11 hemoglobin 10.9 potassium 3.5 creatinine 0.64 Previous testing White count 17 hemoglobin 11 potassium 3.5 Chest x-ray film personally reviewed by me-ET tube, bilateral infiltrates Previous testing White count 12.5 hemoglobin 10.3 potassium 3.2 creatinine 0.61 procalcitonin 0.12 Chest x-ray film personally reviewed by me-bilateral infiltrates Assessment: -Bilateral pneumonia suspected gram-negative organism and aspiration pneumonia causing severe sepsis- -Early ARDS-improved -Acute delirium on the metabolic encephalopathy from the improve -Methamphetamine use and overdose of baclofen -Possible bipolar disorder with depression and anxiety -Acute hypoxic and hypercapnic failure from above,-requiring ventilator - (patient also was intubated at [facility] then extubated.) Extubated-January 27-on nasal cannula-corrected -Morbid obesity BMI 40.5 -Hypoalbuminemia-acute phase reactant -Hypo kalemia -Normocytic anemia -Acute respiratory acidosis improved Disposition: 3-[place] [facility] inpatient unit Patient Condition at Discharge: Stable Plan - Discharge Summary Discharge Rx Participant: No New Discharge Prescriptions: New Nicotine 21Mg/24Hr Patch [Habitrol] 1 patch TRANSDERM DAILY #1 patch Furosemide [Lasix] 40 mg PO DAILY #1 tab predniSONE 0 mg PO DIRECTED #1 tab Tiotropium 18 Mcg/Puff [Spiriva] 1 puff INHALATION DAILY #1 device Albuterol Inhaler [Ventolin Hfa Inhaler] 2 puff INHALATION RT-QID #1 puff Continue Sertraline HCl [Zoloft] 200 mg PO DAILY ALPRAZolam [Xanax] 0.5 mg PO HS atenoloL [Tenormin] 50 mg PO DAILY busPIRone HCL [Buspar] 30 mg PO BID Fluticasone Nasal [place] [Flonase Nasal [place]] 2 spr EA NOSTRIL BID PRN PRN Reason: Allergy Symptoms Discontinued Ibuprofen [Motrin Ib] 200 - 400 mg PO Q6H PRN PRN Reason: Pain Acetaminophen Tab [Tylenol Tab] 500 - 1,000 mg PO Q6H PRN PRN Reason: Pain Loratadine [Claritin] 10 mg PO DAILY PRN PRN Reason: Allergy Symptoms Discharge Medication List Sertraline HCl [Zoloft] 200 mg PO DAILY 11/16/18 [History] ALPRAZolam [Xanax] 0.5 mg PO HS 12/16/18 [History] atenoloL [Tenormin] 50 mg PO DAILY 05/30/19 [History] Fluticasone Nasal [place] [Flonase Nasal [place]] 2 spr EA NOSTRIL BID PRN 01/21/20 [History] busPIRone HCL [Buspar] 30 mg PO BID 01/21/20 [History] Albuterol Inhaler [Ventolin Hfa Inhaler] 2 puff INHALATION RT-QID #1 puff 01/31/20 [Rx] Furosemide [Lasix] 40 mg PO DAILY #1 tab 01/31/20 [Rx] Nicotine 21Mg/24Hr Patch [Habitrol] 1 patch TRANSDERM DAILY #1 patch 01/31/20 [Rx] Tiotropium 18 Mcg/Puff [Spiriva] 1 puff INHALATION DAILY #1 device 01/31/20 [Rx] predniSONE 0 mg PO DIRECTED #1 tab 01/31/20 [Rx] Follow up Appointment(s)/Referral(s): Abraham Garcia MD [Medical Doctor] - 1-2 Days Bennie Chacon PAC [Primary Care Provider] - 1 Week
== END 2020-01-31 19:05 | DRG 870 ==
LOC: 3SCARD 19:36 → 2SICU 01-22 21:26 → 3SCARD 01-31 02:41
PROVIDERS: ADMIT Hospitalist; ATTEND Hospitalist
PROC: 5A09357 Assistance with Respiratory Ventilation, Less than 24 Consecutive Hours, Continuous Positive Airway Pressure (ICD-10-PCS; 2020-01-22)
PROC: 0DH67UZ Insertion of Feeding Device into Stomach, Via Natural or Artificial Opening (ICD-10-PCS; principal; 2020-01-23)
PROC: 0BH17EZ Insertion of Endotracheal Airway into Trachea, Via Natural or Artificial Opening (ICD-10-PCS; principal; 2020-01-23)
PROC: 04HY32Z Insertion of Monitoring Device into Lower Artery, Percutaneous Approach (ICD-10-PCS; principal; 2020-01-23)
PROC: 3E0G76Z Introduction of Nutritional Substance into Upper GI, Via Natural or Artificial Opening (ICD-10-PCS; principal; 2020-01-23)
PROC: 4A133B1 Monitoring of Arterial Pressure, Peripheral, Percutaneous Approach (ICD-10-PCS; principal; 2020-01-23)
PROC: 4A133J1 Monitoring of Arterial Pulse, Peripheral, Percutaneous Approach (ICD-10-PCS; principal; 2020-01-23)
PROC: 5A1955Z Respiratory Ventilation, Greater than 96 Consecutive Hours (ICD-10-PCS; principal; 2020-01-23)
DX: A41.50 Gram-negative sepsis, unspecified (principal); J96.01 Acute respiratory failure with hypoxia; J96.02 Acute respiratory failure with hypercapnia; J69.0 Pneumonitis due to inhalation of food and vomit; G93.41 Metabolic encephalopathy; J15.6 Pneumonia due to other Gram-negative bacteria; F33.2 Major depressive disorder, recurrent severe without psychotic features; E87.2 Acidosis; Z68.41 Body mass index [BMI] 40.0-44.9, adult; E83.51 Hypocalcemia; D63.8 Anemia in other chronic diseases classified elsewhere; E88.09 Other disorders of plasma-protein metabolism, not elsewhere classified; T42.8X2A Poisoning by antiparkinsonism drugs and other central muscle-tone depressants, intentional self-harm, initial encounter; R65.20 Severe sepsis without septic shock; E66.01 Morbid (severe) obesity due to excess calories; F15.10 Other stimulant abuse, uncomplicated; T43.621A Poisoning by amphetamines, accidental (unintentional), initial encounter; F41.9 Anxiety disorder, unspecified; E87.6 Hypokalemia; F17.210 Nicotine dependence, cigarettes, uncomplicated; H53.40 Unspecified visual field defects; F12.10 Cannabis abuse, uncomplicated; Z71.3 Dietary counseling and surveillance; Z79.899 Other long term (current) drug therapy; Z87.448 Personal history of other diseases of urinary system; Z87.09 Personal history of other diseases of the respiratory system; Z87.440 Personal history of urinary (tract) infections; Z86.14 Personal history of Methicillin resistant Staphylococcus aureus infection; Z91.5 Personal history of self-harm; Z86.19 Personal history of other infectious and parasitic diseases; Z78.1 Physical restraint status; Z98.890 Other specified postprocedural states; Z86.73 Personal history of transient ischemic attack (TIA), and cerebral infarction without residual deficits; Z88.2 Allergy status to sulfonamides; Z82.0 Family history of epilepsy and other diseases of the nervous system; Z81.8 Family history of other mental and behavioral disorders
CPT/HCPCS: 36600; 70450; 70496; 70498; 71045; 71046; 74018; 80048; 80053; 80061; 80202; 80306; 81001; 82271; 82805; 83036; 83605; 83735; 84132; 84145; 85025; 85027; 85379; 85610; 87040; 87070; 87205; 87324; 94002; 94003; 94640; 94660

== ENCOUNTER 2020-01-31 19:11 | Inpatient (IN) | payer MEDICAID ==
[2020-01-31] MEDS ORDERED: ZIPRASIDONE 20 MG VIAL IM PRN (19:19)
[2020-01-31] MEDS ORDERED: ACETAMINOPHEN TAB 325 MG TAB PO PRN (19:19)
[2020-01-31] MEDS ORDERED: MAGNESIUM HYDROXIDE 2,400 MG/10 ML CUP PO PRN (19:19)
[2020-01-31] MEDS ORDERED: MAG HYDROX/AL HYDROX/SIMETH 30 ML CUP PO PRN (19:19)
[2020-01-31] MEDS ORDERED: FLUTICASONE 50MCG/SPRAY NASAL 16GM EA NOSTRIL PRN (19:23)
[2020-01-31] MEDS: ALBUTEROL HFA INHALER INHALATION SCH (21:53)
[2020-01-31] MEDS: busPIRone HCl 10 MG TAB PO SCH (21:54)
[2020-01-31] MEDS: MELATONIN 5 MG TABLET PO SCH (22:42)
[2020-02-01] MEDS: busPIRone HCl 10 MG TAB PO SCH ×2 (08:26→20:13)
[2020-02-01] MEDS: atenoloL 50 MG TAB PO SCH (08:26)
[2020-02-01] MEDS: NICOTINE 21MG/24HR PATCH TRANSDERM SCH (08:27)
[2020-02-01] MEDS: FUROSEMIDE 40 MG TAB PO SCH (08:27)
[2020-02-01] MEDS: SERTRALINE 100 MG TAB PO SCH (08:27)
[2020-02-01] MEDS: ALBUTEROL HFA INHALER INHALATION SCH ×2 (08:57→20:11)
[2020-02-01] MEDS: TIOTROPIUM 18 MCG/PUFF INHALER INHALATION SCH (08:58)
[2020-02-01 09:32] LABS: Basophils # (A) 0.1 k/uL (0-0.2); Basophils % (A) 0 %; Eosinophils # (A) 0.3 k/uL (0-0.7); Eosinophils % (A) 3 %; HCT 35.2 % (34.0-46.0); HGB 11.1 gm/dL (11.4-16.0); Hypochromasia Slight; Lymphocytes # (A) 4.1 k/uL (1.0-4.8); Lymphocytes % (A) 38 %; MCH 28.6 pg (25.0-35.0); MCHC 31.4 g/dL (31.0-37.0); Mean Platelet Volume 8.4; Monocytes # (A) 0.5 k/uL (0-1.0); Monocytes % (A) 5 %; Neutrophils # (A) 5.8 k/uL (1.3-7.7); Neutrophils % (A) 53 %; Platelet Count 409 k/uL (150-450); RBC 3.87 m/uL (3.80-5.40); RDW 15.5 % (11.5-15.5); WBC 10.9 k/uL (3.8-10.6)
[2020-02-01 10:00] LABS: ALT 56 U/L (4-34); AST 25 U/L (14-36); African American GFR (CKD) >90 (>60 ml/min/1.73 sqM); Alkaline Phosphatase 63 U/L (38-126); Anion Gap 7 mmol/L; Blood Urea Nitrogen 12 mg/dL (7-17); Calcium 8.2 mg/dL (8.4-10.2); Carbon Dioxide 23 mmol/L (22-30); Chloride 109 mmol/L (98-107); Cholesterol 246 mg/dL (<200); Glucose 105 mg/dL (74-99); HDL Cholesterol 27 mg/dL (40-60); LDL Cholesterol,Calculated 153 mg/dL (0-99); Non-African American GFR(CKD) >90 (>60 ml/min/1.73 sqM); Potassium 3.3 mmol/L (3.5-5.1); Sodium 139 mmol/L (137-145); Total Bilirubin 0.4 mg/dL (0.2-1.3); Total Protein 5.5 g/dL (6.3-8.2); Triglycerides 331 mg/dL (<150)
[2020-02-01] MEDS: LORazepam 1 MG TAB PO PRN ×2 (11:07→20:13)
--- NOTE | 2020-02-01 13:02 | P.HP ---
Psychiatric H&P - . H&P Date: 02/01/20 History & Physical: Allergies Allergy/AdvReac Type Severity Reaction Status Date / Time Sulfa (Sulfonamide Allergy Itching Verified 01/21/20 20:22 Antibiotics) sulfamethoxazole Allergy Rash/Hives Verified 01/21/20 20:22 [From Bactrim] trimethoprim [From Bactrim] Allergy Rash/Hives Verified 01/21/20 20:22 Vital Signs Temp 97.4 F L 02/01/20 04:36 Pulse 86 02/01/20 08:29 Resp 16 02/01/20 04:36 BP 117/62 02/01/20 08:29 Pulse Ox 94 L 02/01/20 04:36 Intake & Output 01/31/20 02/01/20 02/01/20 18:59 06:59 18:59 Weight 109.316 kg Laboratory Last Values WBC 10.9 k/uL (3.8-10.6) H 02/01/20 08:56 RBC 3.87 m/uL (3.80-5.40) 02/01/20 08:56 Hgb 11.1 gm/dL (11.4-16.0) L 02/01/20 08:56 Hct 35.2 % (34.0-46.0) 02/01/20 08:56 MCV 91.0 fL (80.0-100.0) 02/01/20 08:56 MCH 28.6 pg (25.0-35.0) 02/01/20 08:56 MCHC 31.4 g/dL (31.0-37.0) 02/01/20 08:56 RDW 15.5 % (11.5-15.5) 02/01/20 08:56 Plt Count 409 k/uL (150-450) 02/01/20 08:56 Neutrophils % 53 % 02/01/20 08:56 Lymphocytes % 38 % 02/01/20 08:56 Monocytes % 5 % 02/01/20 08:56 Eosinophils % 3 % 02/01/20 08:56 Basophils % 0 % 02/01/20 08:56 Neutrophils # 5.8 k/uL (1.3-7.7) 02/01/20 08:56 Lymphocytes # 4.1 k/uL (1.0-4.8) 02/01/20 08:56 Monocytes # 0.5 k/uL (0-1.0) 02/01/20 08:56 Eosinophils # 0.3 k/uL (0-0.7) 02/01/20 08:56 Basophils # 0.1 k/uL (0-0.2) 02/01/20 08:56 Hypochromasia Slight 02/01/20 08:56 Sodium 139 mmol/L (137-145) 02/01/20 08:56 Potassium 3.3 mmol/L (3.5-5.1) L 02/01/20 08:56 Chloride 109 mmol/L (98-107) H 02/01/20 08:56 Carbon Dioxide 23 mmol/L (22-30) 02/01/20 08:56 Anion Gap 7 mmol/L 02/01/20 08:56 BUN 12 mg/dL (7-17) 02/01/20 08:56 Creatinine 0.53 mg/dL (0.52-1.04) 02/01/20 08:56 Est GFR (CKD-EPI)AfAm >90 (>60 ml/min/1.73 sqM) 02/01/20 08:56 Est GFR (CKD-EPI)NonAf >90 (>60 ml/min/1.73 sqM) 02/01/20 08:56 Glucose 105 mg/dL (74-99) H 02/01/20 08:56 Calcium 8.2 mg/dL (8.4-10.2) L 02/01/20 08:56 Total Bilirubin 0.4 mg/dL (0.2-1.3) 02/01/20 08:56 AST 25 U/L (14-36) 02/01/20 08:56 ALT 56 U/L (4-34) H 02/01/20 08:56 Alkaline Phosphatase 63 U/L (38-126) 02/01/20 08:56 Total Protein 5.5 g/dL (6.3-8.2) L 02/01/20 08:56 Albumin 3.0 g/dL (3.5-5.0) L 02/01/20 08:56 Triglycerides 331 mg/dL (<150) H 02/01/20 08:56 Cholesterol 246 mg/dL (<200) H 02/01/20 08:56 LDL Cholesterol, Calc 153 mg/dL (0-99) H 02/01/20 08:56 HDL Cholesterol 27 mg/dL (40-60) L 02/01/20 08:56 TSH 2.200 mIU/L (0.465-4.680) 02/01/20 08:56 02/01/20 12:48 HPI: The patient was transferred from [facility] after she took a almost lethal dose of baclofen. She said that she was not trying to kill herself just trying to feel happy. Her 11-year-old daughter was up [place] visiting friends and she just did not feel happy. She has abused baclofen for that purpose in the past. However she miscalculated and almost she had to be intubated and it was difficult to get her off the respirator. She says that lately she has not been doing that badly, finances are tight but she helps watch her paternal grandmother who is 91 and someone has to be with her at night. Past psychiatric history: The patient has had 5 suicide attempts in the past. She says she was treated with Celexa which helped fairly well and that more recently she has been on Zoloft at 200+ BuSpar. However in spite of this she is felt the urge to abuse dopamine enhancer such as methamphetamine and Vicodin. She also smokes regular cigarettes on a daily basis. She says one thing that has upset her is she developed MRSA. 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 But getting the MRSA seem to stir up her depression Social history: The patient is a second of 2 children born to her parents she has an older brother. Her parents are alive and together. Maternal great-grand mother committed suicide. Maternal grandmother struggles with alcohol and depression and anxiety. Her older brother is severely depressed and anxious and alcoholic "worse and I am " She said her and early development she was early but otherwise developed well she was just shy in school. In school she completed the 12th grade. Denies any history any legal history. She lives in a house with her 11-year-old daughter the father does not help out. She is on food stamps and other aid but finances are extremely tight and she has tried applying for disability. She says she has some friends but the problem is is that many of them use methamphetamine so she has withdrawn from them to try to maintain her own stability she does not go to mandaen but does have private spirituality where she prays and meditates regularly. For fun she likes to read go shopping which she can't afford and take photographs Medical labs hematology showed a white count of about 11 hemoglobin was low and she has to urinate a lot we do not have a urinalysis I'll order that just to make sure we don't have an infection. General chemistry showed low potassium high chloride glucose was okay triglycerides LDL cholesterol were all elevated HDL low she needs more exercise and she needs to eat well. She admits she does not exercise does not eat healthy a lot of "junk food" Vital signs temperature 90.7 for bit low heart rates 86 respirations 16 blood pressure 117/62 she was transferred directly from [facility] and she had a physical done over there none here but she is doing much better is over there she had to be intubated Mental status exam the patient is somewhat concrete and limited in her capacity to comprehend her situation and does seem to be down playing the seriousness of what she did. She remembered 2 of 3 objects after 3 minutes so is recent memory somewhat impaired she could name the last 4 presidents so average general information she can name 3 of the [place] and then was able remembered the other 2 when I gave her the first letter physically she was shaking eye contact somewhat down she said they cats and snakes both like to eat and then she shut down I asked her why she said she is afraid she'll get it wrong but then she tried again and said they were both animals. In trying to spell world backward she said DLO are then positive for a long time and said OW she is able subtract 7 from 100 and get 93 but I asked her to subtract 7 from that she said 91 self- care is minimal but she was cooperative no aggression noted tearfulness affect was neutral she did not look depressed she denied and did not evidence any responding to voices. She says that throughout her life she has had this sense of spirits around her connected to the house that she in but denies any other psychotic component. Strengths she cares about her daughter has a long history of working in the past and does want some help at this point. Diagnosis major depression recurrent severe rule out major depression with psychosis Assessment and plan the patient needs to realize the seriousness of what she did and I do think she needs some help with norepinephrine and dopamine and going to add Wellbutrin and leave her Zoloft and BuSpar where they're at try some Ambien for sleep issues tried trazodone in the past without benefit I went over the side effects and benefits and expected course and the patient was in agreement with the plan.
[2020-02-01 18:29] LABS: Hemoglobin A1C 5.3 % (4.0-6.0)
[2020-02-01] MEDS: MELATONIN 5 MG TABLET PO SCH (20:13)
[2020-02-01] MEDS ORDERED: ZOLPIDEM 5 MG TAB PO SCH (21:00)
--- NOTE | 2020-02-02 00:27 | P.MDCNMH ---
History of Present Illness H&P Date: 02/01/20 Chief Complaint: suicidal attempt Ms. Leach is a 44-year-old female, with a past medical history of polysubstance abuse, depression, suicidal attempt who was initially transferred from [facility] after she took little dose of baclofen. Patient went to ARDS was intubated, extubated the next day. She was treated for bilateral pneumonia and transferred to the psychiatric unit. Patient had bilateral pneumonia due to aspiration was treated with vancomycin and cefepime. Her respiratory status improved and eventually she was transferred to the psychiatric unit due to attempted suicide. On having a conversation with her today, she states that she wants to go home. Patient denies having any cough or difficulty in breathing. No chest pain or p alpitations. No abdominal pain nausea vomiting or diarrhea. No orthopnea PND or lower extremity swelling. Patient's vitals have been reviewed and are within normal limits. Her labs from this morning show white count of 10.9, hemoglobin 11.1. Sodium 139, potassium 3.3, chloride 109, bicarb 23. BUN 12, creatinine 0.53. Liver function tests within normal limits. Hemoglobin A1c is 5.3. Patient was tested for C. difficile that was negative. Review of Systems REVIEW OF SYSTEMS: CONSTITUTIONAL: No fever, no malaise, no fatigue. HEENT: No recent visual problems or hearing problems. Denied any sore throat. CARDIOVASCULAR: No orthopnea, PND, no palpitations, no syncope. PULMONARY: No shortness of breath, no cough, no hemoptysis. GASTROINTESTINAL: No diarrhea, no nausea,no abdominal pain. NEUROLOGICAL: No headaches, no weakness, no numbness. HEMATOLOGICAL: Denies any bleeding or petechiae. GENITOURINARY: Denies any burning micturition, frequency, or urgency. MUSCULOSKELETAL/RHEUMATOLOGICAL: No joint swelling or pain ENDOCRINE: Denies any polyuria or polydipsia. The rest of the 13-point review of systems is negative. Past Medical History Past Medical History: Pneumonia, Respiratory Disorder Additional Past Medical History / Comment(s): Polysubstane abuse, history of drug overdose, history of ARDS requiring intubation and mechanical ventilation, history of severe rhabdomyolysis and LUIS MIGUEL (recovered), history of MSSA pneumonia and sepsis, history of metabolic encephalopathy (recovered), hisotory of depression, suicidal thoughts, suicide attempts, obesity History of Any Multi-Drug Resistant Organisms: None Reported Date of last positivie culture/infection: None MDRO Source:: None Past Surgical History: No Surgical Hx Reported Additional Past Surgical History / Comment(s): breast biopsy (date unknown), trach placement and peg tube placement for ARDS Past Anesthesia/Blood Transfusion Reactions: No Reported Reaction Smoking Status: Current every day smoker - Past Family History Mother Family Medical History: No Reported History Medications and Allergies Home Medications Medication Instructions Recorded Confirmed Type Sertraline HCl [Zoloft] 200 mg PO DAILY 11/16/18 01/21/20 History ALPRAZolam [Xanax] 0.25 mg PO HS 12/16/18 01/21/20 History atenoloL [Tenormin] 50 mg PO DAILY 05/30/19 01/21/20 History Fluticasone Nasal Friendship [Flonase 2 spr EA NOSTRIL BID PRN 01/21/20 01/21/20 History Nasal Friendship] busPIRone HCL [Buspar] 30 mg PO TID 01/21/20 01/21/20 History Albuterol Inhaler [Ventolin Hfa 2 puff INHALATION RT-QID #1 puff 01/31/20 Rx Inhaler] Furosemide [Lasix] 40 mg PO DAILY #1 tab 01/31/20 Rx Nicotine 21Mg/24Hr Patch [Habitrol] 1 patch TRANSDERM DAILY #1 patch 01/31/20 02/01/20 Rx Tiotropium 18 Mcg/Puff [Spiriva] 1 puff INHALATION DAILY #1 device 01/31/20 Rx predniSONE 0 mg PO DIRECTED #1 tab 01/31/20 Rx Allergies Allergy/AdvReac Type Severity Reaction Status Date / Time Sulfa (Sulfonamide Allergy Itching Verified 01/21/20 20:22 Antibiotics) sulfamethoxazole Allergy Rash/Hives Verified 01/21/20 20:22 [From Bactrim] trimethoprim [From Bactrim] Allergy Rash/Hives Verified 01/21/20 20:22 Physical Exam Vitals: Vital Signs Temp Pulse Pulse Resp BP Pulse Ox 02/01/20 08:29 86 117/62 02/01/20 04:36 97.4 F L 72 16 96/58 94 L 02/01/20 00:35 67 103/58 01/31/20 23:16 97.6 F 63 18 112/68 97 01/31/20 23:11 71 105/62 01/31/20 22:06 70 101/61 Intake and Output 02/01/20 02/01/20 02/01/20 06:59 14:59 22:59 Other: Weight 109.316 kg PHYSICAL EXAMINATION: GENERAL: not in any acute distress. HEENT: Pupils are round and equally reacting to light. EOMI. mild scleral icterus. No conjunctival pallor. Normocephalic, atraumatic. No pharyngeal erythema. No thyromegaly. CARDIOVASCULAR: S1 , S2 heard . No additional sounds. PULMONARY: Bilateral breath sounds are positive. No wheeze or crackles. ABDOMEN: Soft, nontender, nondistended, normoactive bowel sounds. No palpable organomegaly. MUSCULOSKELETAL: No joint swelling or deformity. EXTREMITIES: No cyanosis, clubbing, or pedal edema. NEUROLOGICAL: alert, awake, oriented X 3 , Gross neurological examination did not reveal any focal deficits. SKIN: Skin popping burnett seen Cranial Nerve Examination - Cranial Nerves Cranial Nerve II- Optic: Intact Cranial Nerve III- Oculomotor: Intact Cranial Nerve IV- Trochlear: Intact Cranial Nerve V- Trigeminal: Intact Cranial Nerve - Abducens: Intact Cranial Nerve VII- Facial: Intact Cranial Nerve VIII- Auditory: Intact Cranial Nerve IX- Glossopharyngeal: Intact Cranial Nerve X- Vagus: Intact Cranial Nerve XI- Accessory: Intact Cranial Nerve XII- Hypoglossal: Intact Results CBC & Chem 7: 02/01/20 08:56 02/01/20 08:56 Labs: Abnormal Lab Results - Last 24 Hours (Table) 02/01/20 02/01/20 Range/Units 08:56 08:56 WBC 10.9 H (3.8-10.6) k/uL Hgb 11.1 L (11.4-16.0) gm/dL Potassium 3.3 L (3.5-5.1) mmol/L Chloride 109 H (98-107) mmol/L Glucose 105 H (74-99) mg/dL Calcium 8.2 L (8.4-10.2) mg/dL ALT 56 H (4-34) U/L Total Protein 5.5 L (6.3-8.2) g/dL Albumin 3.0 L (3.5-5.0) g/dL Triglycerides 331 H (<150) mg/dL Cholesterol 246 H (<200) mg/dL LDL Cholesterol, Calc 153 H (0-99) mg/dL HDL Cholesterol 27 L (40-60) mg/dL Assessment and Plan Assessment: ASSESSMENT Suicidal attempt-with baclofen Bilateral pneumonia due to aspiration-resolved Metabolic encephalopathy-resolved History of polysubstance abuse History of severe rhabdomyolysis Previous suicide attempt Obesity with BMI of 38.9 Anxiety with depression PLAN: Patient completed an antibiotic course for her aspiration pneumonia. Cur rently she is on 40 mg of Lasix and the rest of the medications are for anxiety issues and for her depression. We will follow the patient as as-needed basis. Thank you for allowing us to participate in taking care of the patient.
[2020-02-02] MEDS: FUROSEMIDE 40 MG TAB PO SCH (09:12)
[2020-02-02] MEDS: NICOTINE 21MG/24HR PATCH TRANSDERM SCH (09:12)
[2020-02-02] MEDS: atenoloL 50 MG TAB PO SCH (09:13)
[2020-02-02] MEDS: buPROPion XL 300 MG TAB.ER.24H PO SCH (09:13)
[2020-02-02] MEDS: busPIRone HCl 10 MG TAB PO SCH ×2 (09:13→20:04)
[2020-02-02] MEDS: SERTRALINE 100 MG TAB PO SCH (09:14)
[2020-02-02] MEDS: LORazepam 1 MG TAB PO PRN ×2 (09:15→18:47)
--- NOTE | 2020-02-02 12:13 | P.PN ---
Subjective Progress Note Date: 02/02/20 Principal diagnosis: Diagnosis major depression recurrent severe Subjective the patient points out that she is going to groups and that she has been working on her discharge plan. After discharge she is going to stay with her mom and daughter more because she recognizes when she is alone is when she gets more suicidal. She doesn't reach out to friends online more. And take her new medications. She says she slept better with the Ambien last night. Medications the patient has had 1 dose of Wellbutrin which is being added to her Zoloft and BuSpar Objective: Vital signs temperature is refused today however heart rate is 92 blood pressure 109/71 Labs: Nothing new Groups: Not attending the patient was assured that she needs to start attending groups so we can analyze and assess her stress tolerance and her function Staff report patient slept well last night she is seen is relatively cooperative poor ADLs vague circumstantial speech oriented to person place time and circumstance Denies any suicidality or homicidality and no psychotic symptoms seen or acknowledged Mental status exam patient is alert cooperative she got a was in group when I found her came down and talk to me and was willing to begin to work on post discharge plans I encouraged her to get to more groups today no evidence of psychosis psychomotor activity is normal eye contact is good she still feels somewhat dizzy so she uses the wheelchair as a walker Assessment and plan: The patient has very poor insight into the seriousness of what happened this is the second time at least that she has almost killed herself from overdoses. She says she swears to guide she'll never do it again that she realizes the impact it would have on her daughter she says that she feels been more time with her mom and reach out to friends more and maybe get into a yarsani and go to counseling. But with poor insight in flight into health chances are she will do the things and will be back to [facility]. So think she needs a little more time to commit to discharge plans and to arrange for accountability and support after discharge and to make sure she tolerates the Wellbutrin Objective - Vital Signs Vital signs: Vital Signs Temp 0 F L 02/01/20 09:31 Pulse 92 02/02/20 09:10 Resp 16 02/01/20 04:36 BP 109/71 02/02/20 09:10 Pulse Ox 94 L 08/10/20 04:36 - Labs CBC & Chem 7: 02/01/20 08:56 02/01/20 08:56
[2020-02-02] MEDS: ALBUTEROL HFA INHALER INHALATION SCH ×3 (18:39→20:04)
[2020-02-02] MEDS: TIOTROPIUM 18 MCG/PUFF INHALER INHALATION SCH (18:41)
[2020-02-02] MEDS: ZOLPIDEM 5 MG TAB PO PRN (20:05)
[2020-02-02] MEDS: MELATONIN 5 MG TABLET PO SCH (20:05)
[2020-02-03] MEDS: LORazepam 1 MG TAB PO PRN ×2 (08:17→16:17)
[2020-02-03] MEDS: NICOTINE 21MG/24HR PATCH TRANSDERM SCH (08:17)
[2020-02-03] MEDS: buPROPion XL 300 MG TAB.ER.24H PO SCH (08:17)
[2020-02-03] MEDS: busPIRone HCl 10 MG TAB PO SCH ×2 (08:17→19:58)
[2020-02-03] MEDS: atenoloL 50 MG TAB PO SCH (08:17)
[2020-02-03] MEDS: SERTRALINE 100 MG TAB PO SCH (08:17)
[2020-02-03] MEDS: FUROSEMIDE 40 MG TAB PO SCH (08:17)
[2020-02-03] MEDS: ALBUTEROL HFA INHALER INHALATION SCH ×4 (08:18→19:56)
--- NOTE | 2020-02-03 10:17 | P.PN ---
Subjective Progress Note Date: 02/03/20 Principal diagnosis: Diagnosis major depression recurrent severe Subjective: Patient says she tolerated the Wellbutrin well yesterday remains committed to her plans for doing well after discharge denies any suicidality or homicidality Objective: Vital signs temperature is 98.6 heart rate 79 respirations 16 blood pressure is 97/58 Labs: Nothing new Group report: The patient has been refusing to go to groups which makes it difficult to assess Staff report is that the patient has a more positive mood but is disheveled tangential in her logic denies and does not evidence any hallucinations or delusions any homicidal or suicidal thoughts and seems to interact reasonably well with peers and staff. She did have to have a when necessary of Ativan yesterday at 9:15 in the morning Mental status: The patient is sleeping in her room at 9 in the morning. However she is cooperative with a pleasant smile rather vague when we worked on discharge plans but did not get defensive or irritable when asked her to be more specific and helped her work through some of the details. Self-care is minimum no evidence of psychosis she denies any suicidality or homicidality. Assessment plan to pick prominent in this case the patient has been here before she almost killed herself before in them promised to behave and then became careless took an overdose to feel happy of baclofen and almost again and doesn't seem to be taking this seriously as would be nice Continue current medication work on discharge plan in the near future perhaps tomorrow if she goes to groups today Objective - Vital Signs Vital signs: Vital Signs Temp 98.6 F 02/03/20 06:48 Pulse 103 H 02/03/20 08:21 Resp 16 02/03/20 06:48 BP 102/68 02/03/20 08:21 Pulse Ox 94 L 02/01/20 04:36 - Labs CBC & Chem 7: 02/01/20 08:56 02/03/20 09:39
[2020-02-03] MEDS: TIOTROPIUM 18 MCG/PUFF INHALER INHALATION SCH (10:31)
[2020-02-03] MEDS ORDERED: POTASSIUM CHLORIDE ER 20 MEQ TAB.ER PO STA (16:06)
[2020-02-03] MEDS: MELATONIN 5 MG TABLET PO SCH (19:58)
[2020-02-03] MEDS: ZOLPIDEM 5 MG TAB PO PRN (19:59)
[2020-02-04] MEDS: LORazepam 1 MG TAB PO PRN ×4 (00:10→23:53)
[2020-02-04] MEDS: TIOTROPIUM 18 MCG/PUFF INHALER INHALATION SCH (07:53)
[2020-02-04] MEDS: ALBUTEROL HFA INHALER INHALATION SCH ×4 (07:53→20:00)
--- NOTE | 2020-02-04 08:41 | P.PN ---
Subjective Progress Note Date: 02/04/20 Principal diagnosis: Diagnosis major depression recurrent severe Subjective: The patient did not go to any groups yesterday and she did not write out a discharge plan which are the 2 prerequisites I given her yesterday for discharge today. She just ran around telling him by she was being discharged. When asked her why she did not go to any of the groups she said she was tired. However the medication she is on U she keeps you up rather than makes him tired. Then she had difficulty sleeping last night. When I told her that the need to remain the same I need her to go to groups and function and write out a discharge plan and will consider discharge tomorrow she does. She became a little tearful but understood that her choices have consequences. Objective: Vital signs temperature 90.8 heart rate 96 respiration 18 blood pressure 105/70 Labs: Nothing new Group report the patient was asked and encouraged to go to groups and she refused. This makes it hard for me to assess her capacity to handle stress and her motivation to work on things after discharge Staff report that the patient is anxious guarded flat affect minimal ADLs withdrawn vague denying any hallucinations delusions or suicidal or homicidal ideas but is compliant with medications. Objective: Patient is oriented to person place time but seems to be totally unmotivated to do anything for her own welfare such as write out the discharge plan that we had discussed in detail yesterday Assessment prognosis is guarded and I think could be greatly increased if we can provoke her to do her part today she needs to be at the Wellbutrin at this dose for a couple more days and then increase to 450 I think I will discharge her tomorrow if she doesn't do her part and just warn her that it will not go well. Objective - Vital Signs Vital signs: Vital Signs Temp 98.0 F 02/04/20 07:56 Pulse 96 02/04/20 07:56 Resp 18 02/04/20 07:56 BP 105/70 02/04/20 07:56 Pulse Ox 94 L 02/01/20 04:36 - Labs CBC & Chem 7: 02/01/20 08:56 02/03/20 09:39
[2020-02-04] MEDS: buPROPion XL 150 MG TAB.ER.24H PO SCH (09:39)
[2020-02-04] MEDS: SERTRALINE 100 MG TAB PO SCH (09:39)
[2020-02-04] MEDS: NICOTINE 21MG/24HR PATCH TRANSDERM SCH (09:39)
[2020-02-04] MEDS: atenoloL 50 MG TAB PO SCH (09:40)
[2020-02-04] MEDS: FUROSEMIDE 40 MG TAB PO SCH (09:40)
[2020-02-04] MEDS: busPIRone HCl 10 MG TAB PO SCH ×2 (09:40→20:01)
[2020-02-04] MEDS: MELATONIN 5 MG TABLET PO SCH (20:01)
[2020-02-04] MEDS: ZOLPIDEM 5 MG TAB PO PRN (20:53)
[2020-02-05 00:10] VITALS: TEMP 98.1
--- NOTE | 2020-02-05 08:38 | P.DS ---
Providers Date of admission: 01/31/20 19:11 Expected date of discharge: 02/05/20 Attending physician: Camila Barton MD Consults: 01/31/20 19:19 Consult Physician Routine Consulting Provider: Weston Landa Consult Reason/Comments: medical management Do you want consulting provider notified?: Yes Primary care physician: DEBI Ramos Hospital Course: Hospital course the patient was admitted on 01/31 being discharged on 02/04. 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 So in addition to her Zoloft and BuSpar combination which are felt to be adequate she was started on Wellbutrin and it was increased to 450. She had 450 yesterday and today and seems to be tolerating it well and slept reasonably well last night the hope is that the Wellbutrin will bring her dopamine up sufficiently that she will not have quite the same urge to abuse dopamine releas ers. The concern of course is her long-term motivation at this point she acknowledges that she almost and would've left her daughter without a mother and she sees this as a major loss for her daughter. And that the use of drugs might give her temporary relief but damages her life The patient was able to go to groups to them yesterday but her social anxiety is significant so she would, and then leave when anxious and come back again. Her plan to get socialized after discharge is to go out and get an online groups. So even with the high-dose of Zoloft and BuSpar she still struggles with a lot of anxiety. She is not really good with ADLs had to be encouraged take a shower. She did handle the disappointment of not having done what was necessary to achieve discharge by accepting some personal responsibility getting busy putting together a discharge plan and trying to go to groups. Mental status She is oriented to person place time and circumstances good eye contact alert cooperative socially withdrawn gait and station seem much better than when she came in she walked to my office in back without the use of a wheelchair or a walker no signs of psychosis no irritability no tearfulness she denies suicidality or homicidality She says she has enough of the Zoloft and BuSpar from her family doctor get it to 2 she sees him again and she'll need a month's supply of Wellbutrin and Ambien Prognosis is improved but still guarded due to the fact that she tends to minimize the seriousness of her problems and has good goals but has trouble making plans are gathering resources are pushing herself to get started. Assessment: The patient still has significant social anxiety but she was able to push past it to at least go to 2 groups yesterday and she has come up with a good discharge plan and feels much more hopeful denies any suicidality or homicidality. Assessment is that she is being discharged with improved function and prognosis Health Concerns: The patient is overweight she does not feel well she does not sleep well she has bowel irritability all of which are pride due to poor nutrition she eats too much sugar and prior to much gluten. I recommended she look into a diet which relieves the bowel. The patient loves to go out on line and research things. She has a past history of pneumonia and respiratory disorder but nothing acute on this stay Pertinent Studies: When she came in she had a basic hematology which was normal except for hemoglobin being slightly low general chemistry was run and her triglycerides and cholesterol are high protein is low albumin low glucose slightly high potassium was low when she came in but on repeat it was okay. No other tests were run. Procedures: None Plan - Discharge Summary Discharge Rx Participant: No New Discharge Prescriptions: New Zolpidem [Ambien] 5 mg PO HS PRN 30 Days #30 tab PRN Reason: Insomnia Melatonin 5 mg PO HS tablet buPROPion XL [Wellbutrin XL] 450 mg PO DAILY 30 Days #90 tab.er.24h Continue Sertraline HCl [Zoloft] 200 mg PO DAILY atenoloL [Tenormin] 50 mg PO DAILY busPIRone HCL [Buspar] 30 mg PO TID Fluticasone Nasal [place] [Flonase Nasal [place]] 2 spr EA NOSTRIL BID PRN PRN Reason: Allergy Symptoms Furosemide [Lasix] 40 mg PO DAILY #1 tab Tiotropium 18 Mcg/Puff [Spiriva] 1 puff INHALATION DAILY #1 device Albuterol Inhaler [Ventolin Hfa Inhaler] 2 puff INHALATION RT-QID #1 puff Discontinued ALPRAZolam [Xanax] 0.25 mg PO HS Nicotine 21Mg/24Hr Patch [Habitrol] 1 patch TRANSDERM DAILY #1 patch predniSONE 0 mg PO DIRECTED #1 tab Discharge Medication List Sertraline HCl [Zoloft] 200 mg PO DAILY 11/16/18 [History] atenoloL [Tenormin] 50 mg PO DAILY 05/30/19 [History] Fluticasone Nasal [place] [Flonase Nasal [place]] 2 spr EA NOSTRIL BID PRN 01/21/20 [History] busPIRone HCL [Buspar] 30 mg PO TID 01/21/20 [History] Albuterol Inhaler [Ventolin Hfa Inhaler] 2 puff INHALATION RT-QID #1 puff 01/31/20 [Rx] Furosemide [Lasix] 40 mg PO DAILY #1 tab 01/31/20 [Rx] Tiotropium 18 Mcg/Puff [Spiriva] 1 puff INHALATION DAILY #1 device 01/31/20 [Rx] Melatonin 5 mg PO HS tablet 02/05/20 [Rx] Zolpidem [Ambien] 5 mg PO HS PRN 30 Days #30 tab 02/05/20 [Rx] buPROPion XL [Wellbutrin XL] 450 mg PO DAILY 30 Days #90 tab.er.24h 02/05/20 [Rx] Activity/Diet/Wound Care/Special Instructions: Activity and diet as tolerated. Avoid the use of street drugs and alcohol. Take all medications as prescribed. When you are in need of refills on your medications please contact your medical provider and/or outpatient psychiatrist to have this done. Please go to scheduled outpatient appointment for aftercare treatment. If symptoms return or become worse, call the crisis line at [phone] and/or go to the nearest emergency room for evaluation.
[2020-02-05] MEDS: atenoloL 50 MG TAB PO SCH (08:43)
[2020-02-05] MEDS: FUROSEMIDE 40 MG TAB PO SCH (08:43)
[2020-02-05] MEDS: busPIRone HCl 10 MG TAB PO SCH (08:43)
[2020-02-05] MEDS: LORazepam 1 MG TAB PO PRN (08:44)
[2020-02-05] MEDS: buPROPion XL 150 MG TAB.ER.24H PO SCH (08:44)
[2020-02-05] MEDS: NICOTINE 21MG/24HR PATCH TRANSDERM SCH (08:44)
[2020-02-05] MEDS: SERTRALINE 100 MG TAB PO SCH (08:44)
[2020-02-05 11:12] VITALS: BP 105/73; PULSE 94; RESP 16
== END 2020-02-05 12:29 | disposition home or self-care (01) | DRG 885 ==
LOC: 3MHU 19:11
PROVIDERS: ADMIT Psychiatry & Neurology Psychiatry; ATTEND Psychiatry & Neurology Psychiatry
DX: F33.2 Major depressive disorder, recurrent severe without psychotic features (principal); E66.9 Obesity, unspecified; Z68.38 Body mass index [BMI] 38.0-38.9, adult; F40.10 Social phobia, unspecified; F15.11 Other stimulant abuse, in remission; F11.11 Opioid abuse, in remission; F19.11 Other psychoactive substance abuse, in remission; K58.9 Irritable bowel syndrome, unspecified; G47.9 Sleep disorder, unspecified; F17.210 Nicotine dependence, cigarettes, uncomplicated; Z71.6 Tobacco abuse counseling; Z79.899 Other long term (current) drug therapy; Z91.5 Personal history of self-harm; Z87.01 Personal history of pneumonia (recurrent); Z88.2 Allergy status to sulfonamides; Z81.8 Family history of other mental and behavioral disorders; Z81.1 Family history of alcohol abuse and dependence
CPT/HCPCS: 80053; 80061; 83036; 84132; 84443; 85025

== ENCOUNTER 2020-05-16 14:24 | Observation (INO) | payer OTHER ==
[2020-05-16] MEDS ORDERED: diphenhydrAMINE 50 MG/ML 1 ML VIAL IVP STA (15:15)
[2020-05-16] MEDS ORDERED: SODIUM CHLORIDE 0.9% 1,000 ML IV STA (15:15)
[2020-05-16] MEDS ORDERED: METOCLOPRAMIDE 5 MG/ML 2 ML VIAL IVP STA (15:15)
--- NOTE | 2020-05-16 15:28 | ED ---
General Adult HPI - General Chief complaint: Headache Stated complaint: Headache Time Seen by Provider: 05/16/20 15:01 Source: patient, RN notes reviewed Mode of arrival: ambulatory Limitations: no limitations - History of Present Illness Initial comments: 44-year-old female with a past medical history of pneumonia, polysubstance abuse, drug overdose presents to the emergency department for chief complaint of headache. Patient states that this started about 4 hours ago. Patient states she has had headaches like this daily for about the past week, worse when she wakes up better and better throughout the day. She denies neck stiffness. Denies fevers or chills. Denies headache waking her up. Denies this being the worst headache of her life. Patient did vomit once in the ER secondary to pain. Denies any difficulty speaking or weakness.Patient has no other complaints at this time including shortness of breath, chest pain, abdominal pain, or visual changes. - Related Data Home Medications Medication Instructions Recorded Confirmed Sertraline HCl [Zoloft] 200 mg PO DAILY 11/16/18 01/21/20 atenoloL [Tenormin] 50 mg PO DAILY 05/30/19 01/21/20 Fluticasone Nasal [place] [Flonase 2 spr EA NOSTRIL BID PRN 01/21/20 01/21/20 Nasal [place]] busPIRone HCL [Buspar] 30 mg PO TID 01/21/20 01/21/20 Previous Rx's Medication Instructions Recorded Albuterol Inhaler [Ventolin Hfa 2 puff INHALATION RT-QID #1 puff 01/31/20 Inhaler] Furosemide [Lasix] 40 mg PO DAILY #1 tab 01/31/20 Tiotropium 18 Mcg/Puff [Spiriva] 1 puff INHALATION DAILY #1 device 01/31/20 Melatonin 5 mg PO HS tablet 02/05/20 Zolpidem [Ambien] 5 mg PO HS PRN 30 Days #30 tab 02/05/20 buPROPion XL [Wellbutrin XL] 450 mg PO DAILY 30 Days #90 02/05/20 tab.er.24h Allergies Allergy/AdvReac Type Severity Reaction Status Date / Time Sulfa (Sulfonamide Allergy Itching Verified 01/21/20 20:22 Antibiotics) sulfamethoxazole Allergy Rash/Hives Verified 01/21/20 20:22 [From Bactrim] trimethoprim [From Bactrim] Allergy Rash/Hives Verified 01/21/20 20:22 Review of Systems ROS Statement: Those systems with pertinent positive or pertinent negative responses have been documented in the HPI. ROS Other: All systems not noted in ROS Statement are negative. Past Medical History Past Medical History: Pneumonia, Respiratory Disorder Additional Past Medical History / Comment(s): Polysubstane abuse, history of drug overdose, history of ARDS requiring intubation and mechanical ventilation, history of severe rhabdomyolysis and LUIS MIGUEL (recovered), history of MSSA pneumonia and sepsis, history of metabolic encephalopathy (recovered), hisotory of depression, suicidal thoughts, suicide attempts, obesity History of Any Multi-Drug Resistant Organisms: MRSA Date of last positivie culture/infection: None MDRO Source:: nare Past Surgical History: No Surgical Hx Reported Additional Past Surgical History / Comment(s): breast biopsy (date unknown), trach placement and peg tube placement for ARDS Past Anesthesia/Blood Transfusion Reactions: No Reported Reaction Past Psychological History: Anxiety, Depression, PTSD Smoking Status: Current every day smoker Past Alcohol Use History: None Reported Past Drug Use History: Marijuana - Past Family History Mother Family Medical History: No Reported History General Exam Limitations: no limitations General appearance: alert, in no apparent distress Head exam: Present: atraumatic, normocephalic, normal inspection Eye exam: Present: normal appearance, PERRL, EOMI. Absent: scleral icterus, conjunctival injection, periorbital swelling ENT exam: Present: normal exam, mucous membranes moist Neck exam: Present: normal inspection, full ROM. Absent: tenderness, meningismus, lymphadenopathy Respiratory exam: Present: normal lung sounds bilaterally. Absent: respiratory distress, wheezes, rales, rhonchi, stridor Cardiovascular Exam: Present: regular rate, normal rhythm, normal heart sounds. Absent: systolic murmur, diastolic murmur, rubs, gallop, clicks GI/Abdominal exam: Present: soft, normal bowel sounds. Absent: distended, tenderness, guarding, rebound, rigid Neurological exam: Present: alert, oriented X3, normal gait, other (GCS 15) Expanded Patient oriented to: Present: person, place, time Speech: Present: fluid speech Cranial nerves: EOM's Intact: Normal, Nystagmus: Normal, Facial Sensation: Normal Cerebellar function: Finger to Nose: Normal Upper motor neuron: Pronator Drift: Normal Sensory exam: Upper Extremity Light Touch: Normal, Upper Extremity Pin Prick: Normal, Lower Extremity Light Touch: Normal, Lower Extremity Pin Prick: Normal Motor strength exam: RUE: 5, LUE: 5, RLE: 5, LLE: 5 Eye Response: (4) open spontaneously Motor Response: (6) obeys commands Verbal Response: (5) oriented Page Total: 15 Course Vital Signs 05/16/20 05/16/20 05/16/20 14:34 14:54 15:40 Temperature 98 F Pulse Rate 86 83 73 Respiratory 18 20 20 Rate Blood Pressure 178/105 141/97 154/102 O2 Sat by Pulse 99 98 100 Oximetry 05/16/20 16:31 Temperature Pulse Rate 74 Respiratory 18 Rate Blood Pressure 163/103 O2 Sat by Pulse 100 Oximetry Medical Decision Making - Medical Decision Making Vitals are stable. No focal neurologic deficits. CBC CMP unremarkable. CT brain was ordered which showed a stable few focal areas of white matter hypodensities likely relating to changes of chronic small vessel ischemic disease. Discussed case with Dr. Pederson. Given patient is in significant pain and recommended doing a CTA of the head. This showed no arterial angiographic significant abnormalities seen. However there was very little venous sinus enhancement therefore possibility of sinus vein thrombosis is not excluded. This patient will be admitted to the hospital in order to perform MRV tomorrow. Dr Pederson spoke to Dr. Landa who accepts this admission. - Lab Data Result diagrams: 05/16/20 15:31 05/16/20 15:31 Lab Results 05/16/20 05/16/20 Range/Units 15:31 15:31 WBC 12.7 H (3.8-10.6) k/uL RBC 4.94 (3.80-5.40) m/uL Hgb 14.4 (11.4-16.0) gm/dL Hct 43.5 (34.0-46.0) % MCV 88.0 (80.0-100.0) fL MCH 29.1 (25.0-35.0) pg MCHC 33.0 (31.0-37.0) g/dL RDW 14.9 (11.5-15.5) % Plt Count 333 (150-450) k/uL MPV 7.7 Neutrophils % 70 % Lymphocytes % 25 % Monocytes % 3 % Eosinophils % 1 % Basophils % 1 % Neutrophils # 8.9 H (1.3-7.7) k/uL Lymphocytes # 3.2 (1.0-4.8) k/uL Monocytes # 0.3 (0-1.0) k/uL Eosinophils # 0.2 (0-0.7) k/uL Basophils # 0.1 (0-0.2) k/uL Sodium 139 (137-145) mmol/L Potassium 4.1 (3.5-5.1) mmol/L Chloride 112 H (98-107) mmol/L Carbon Dioxide 19 L (22-30) mmol/L Anion Gap 8 mmol/L BUN 10 (7-17) mg/dL Creatinine 0.70 (0.52-1.04) mg/dL Est GFR (CKD-EPI)AfAm >90 (>60 ml/min/1.73 sqM) Est GFR (CKD-EPI)NonAf >90 (>60 ml/min/1.73 sqM) Glucose 104 H (74-99) mg/dL Calcium 9.0 (8.4-10.2) mg/dL Total Bilirubin 0.3 (0.2-1.3) mg/dL AST 21 (14-36) U/L ALT 15 (4-34) U/L Alkaline Phosphatase 97 (38-126) U/L Total Protein 7.1 (6.3-8.2) g/dL Albumin 4.2 (3.5-5.0) g/dL Disposition Clinical Impression: Intractable headache Narrative: rule out sinus venous thrombosis Disposition: ADMITTED IP TO THIS [facility] Is patient prescribed a controlled substance at d/c from ED?: No Referrals: Leandro Mendoza DO [Primary Care Provider] - 1-2 days Time of Disposition: 18:02
[2020-05-16 15:39] LABS: Basophils # (A) 0.1 k/uL (0-0.2); Basophils % (A) 1 %; Eosinophils # (A) 0.2 k/uL (0-0.7); Eosinophils % (A) 1 %; HCT 43.5 % (34.0-46.0); HGB 14.4 gm/dL (11.4-16.0); Lymphocytes # (A) 3.2 k/uL (1.0-4.8); Lymphocytes % (A) 25 %; MCH 29.1 pg (25.0-35.0); Mean Platelet Volume 7.7; Monocytes # (A) 0.3 k/uL (0-1.0); Monocytes % (A) 3 %; Neutrophils # (A) 8.9 k/uL (1.3-7.7); Neutrophils % (A) 70 %; Platelet Count 333 k/uL (150-450); RBC 4.94 m/uL (3.80-5.40); RDW 14.9 % (11.5-15.5); WBC 12.7 k/uL (3.8-10.6)
[2020-05-16 15:47] LABS: ALT 15 U/L (4-34); AST 21 U/L (14-36); African American GFR (CKD) >90 (>60 ml/min/1.73 sqM); Albumin 4.2 g/dL (3.5-5.0); Alkaline Phosphatase 97 U/L (38-126); Anion Gap 8 mmol/L; Blood Urea Nitrogen 10 mg/dL (7-17); Carbon Dioxide 19 mmol/L (22-30); Chloride 112 mmol/L (98-107); Glucose 104 mg/dL (74-99); Non-African American GFR(CKD) >90 (>60 ml/min/1.73 sqM); Potassium 4.1 mmol/L (3.5-5.1); Sodium 139 mmol/L (137-145); Total Bilirubin 0.3 mg/dL (0.2-1.3); Total Protein 7.1 g/dL (6.3-8.2)
--- NOTE | 2020-05-16 16:02 | CT ---
EXAMINATION TYPE: CT brain wo con DATE OF EXAM: 05/16/2020 COMPARISON: 01/22/2020 and 11/16/2018 HISTORY: 44-year-old female Headache with nausea TECHNIQUE: Examination was done in axial plane without intravenous contrast. Coronal and sagittal r econstructions performed. CT DLP: 1107.4 mGycm Automated exposure control for dose reduction was used. FINDINGS: There is no evidence of acute intracranial hemorrhage, acute ischemic changes, mass, mass-effect, or extra-axial fluid collection. There is no effacement of cerebral sulci or basal subarachnoid cister ns. There is no hydrocephalus. There is no midline shift. [place]-white matter distinction is preserv ed. Focal hypodensity extending laterally and inferiorly from the frontal horn of right lateral ventricle remains unchanged back to 11/16/2018. Stable white matter hypodensity anterior right subinsular region and left basal ganglia Leftward nasal septal paranasal sinuses and mastoid air cells are well pneumatized. Lobes are intact. IMPRESSION: Stable few focal areas of white matter hypodensities likely relating to changes of chronic small vess el ischemic disease. Consider contrast-enhanced MRI on a nonemergent basis to further assess these wh ite matter changes. No acute intracranial abnormality seen.
[2020-05-16] MEDS ORDERED: HYDROmorphone 0.5 MG/0.5 ML SYRINGE IVP STA (16:21)
--- NOTE | 2020-05-16 17:12 | CT ---
EXAMINATION TYPE: CT angio head DATE OF EXAM: 05/16/2020 COMPARISON: None HISTORY: Headache. Abnormal CT. CT DLP: 955.1 mGycm Automated exposure control for dose reduction was used. CONTRAST: Performed with IV Contrast, patient injected with 100 mL of Isovue 300. There are 3-D post processed images. There is arterial flow in the anterior middle and posterior cerebral arteries. There is arterial flow in the vertebrobasilar artery system. There is arterial flow in both distal vertebral arteries. Ther e is diminutive basilar artery. The posterior circulation appears to fill mostly through the posterio r communicating arteries bilaterally. No definite there is no mass effect. There is no evidence of in tracranial aneurysm or neovascularity. I see no evidence of hemodynamic stenosis. There is very littl e contrast enhancement of the venous sinuses. IMPRESSION: No arterial angiographic significant abnormality seen. Diminutive basilar artery with significant hilda w in the posterior communicating arteries. There is very little venous sinus enhancement. The possibility of sinus vein thrombosis not excluded. . MR venogram would be helpful for further evaluation if clinically indicated.
[2020-05-16] MEDS ORDERED: NALOXONE 0.4 MG/ML 1 ML VIAL IV PRN (17:57)
[2020-05-16] MEDS: HYDROmorphone 0.5 MG/0.5 ML SYRINGE IVP PRN ×2 (18:47→22:42)
[2020-05-16] MEDS: ONDANSETRON 4 MG/2 ML VIAL IVP PRN (18:54)
[2020-05-16] MEDS: SODIUM CHLORIDE 0.9% 1,000 ML IV SCH (18:55)
[2020-05-17] MEDS: HYDROmorphone 0.5 MG/0.5 ML SYRINGE IVP PRN ×7 (02:29→21:15)
[2020-05-17] MEDS ORDERED: ACETAMINOPHEN TAB 500 MG TAB PO PRN (08:33)
[2020-05-17] MEDS ORDERED: LORATADINE 10 MG TAB PO PRN (08:33)
[2020-05-17] MEDS ORDERED: FLUTICASONE 50MCG/SPRAY NASAL 16GM EA NOSTRIL PRN (08:33)
[2020-05-17] MEDS ORDERED: IBUPROFEN 800 MG TAB PO PRN (08:33)
[2020-05-17] MEDS ORDERED: MELATONIN 5 MG TABLET PO PRN (08:33)
[2020-05-17] MEDS: SODIUM CHLORIDE 0.9% 1,000 ML IV SCH ×2 (08:45→16:35)
[2020-05-17] MEDS: ONDANSETRON 4 MG/2 ML VIAL IVP PRN (08:53)
[2020-05-17] MEDS ORDERED: SERTRALINE 100 MG TAB PO SCH (09:00)
[2020-05-17] MEDS ORDERED: atenoloL 50 MG TAB PO SCH (09:00)
--- NOTE | 2020-05-17 12:06 | P.CNNES ---
History of Present Illness Consult date: 05/17/20 Requesting physician: Weston Landa Reason for Consult: Intractable headache History of Present Illness: This 44-year-old woman with a medical history of polysubstance abuse, pneumonia, severe rhabdomyolysis and LUIS MIGUEL, suicidal attempt that presented to the emergency department on 05/16/2020 for headache. Patient stated that she had the headache like this daily for the past 1 week. Patient stated that that she's having bilateral frontal headache for the last 1 week, she couldn't describe the type of headache she is having but the she felt was a combination of aching and throbbing and sharp. The headache is localized and there is no radiation. On a scale of 1-10 she felt that the headaches were 10. She had slight photophobia, she did have photophobia. She didn't have to be in a dark quiet place at. She felt nauseous and had while in the ED at. She denies of any visual visual disturbance. Denies of any focal weakness, any paresthesia. Denies of any difficulty swallowing or getting her words out. She denies of any similar episode in the past with this. She denies of any family history of a brain t umor. No family history of brain aneurysm. She said that when she had the headache as she would take for Tylenol [id number] and that that would resolve the headache also the next day at. She denies of any similar headache in the past. Denies of any head trauma. Currently the headache is about a 4 out of 10. She smokes 1/2 PPD for years. She denies alcohol use. She denies any episodes of in the past. Of note she said about 5 years ago she was scaring her face and has M shaped as result and could not tell me why. She has anxiety and Depression and is seeing a Psychiastrist. Workup in the hospital consisted of: Initial vitals: Pressure of 178/105, heart rate of 86, respiratory rate of 18, temperature of 98 Fahrenheit oral, and pulse ox of 99% on room air. CT of the head which was reported as stable few focal area of white matter hypo- densities likely relating to changes of chronic small vessel ischemic changes. Consider contrast enhanced MRI or nonemergent basis to further assess these white matter changes. No acute intracranial abnormality seen. CT angiography of the head and neck is reported as no arterial angiography significant abnormality seen. Diminutive basilar he was significant flow in the postures communicating arteries. There is very little venous sinus enhancement. The possibility of sinus thrombosis is not excluded. MR venogram would be helpful for further evaluation if clinically indicated. White blood cell is 12.7 and slightly neutrophilic of 8.9. Review of Systems Review of system: The 12 point system was reviewed and apparent positive and negative per HPI. Past Medical History Past Medical History: Pneumonia, Respiratory Disorder Additional Past Medical History / Comment(s): Polysubstane abuse, history of dr ug overdose, history of ARDS requiring intubation and mechanical ventilation, history of severe rhabdomyolysis and LUIS MIGUEL (recovered), history of MSSA pneumonia and sepsis, history of metabolic encephalopathy (recovered), hisotory of depression, suicidal thoughts, suicide attempts, obesity History of Any Multi-Drug Resistant Organisms: MRSA Date of last positivie culture/infection: None MDRO Source:: nare Past Surgical History: No Surgical Hx Reported Additional Past Surgical History / Comment(s): breast biopsy (date unknown), trach placement and peg tube placement for ARDS Past Anesthesia/Blood Transfusion Reactions: No Reported Reaction Past Psychological History: Anxiety, Depression, PTSD Additional Psychological History / Comment(s): 5 previous suicide attempts Smoking Status: Current every day smoker Past Alcohol Use History: None Reported Additional Past Alcohol Use History / Comment(s): The patient was a smoker for at least 20 years 1 pack per day and quit in November 2018. She denies any IV drug use. She states she has abused Vicodin in the past. She is currently living with her daughter. There is a cat in the home. No recent travel. Past Drug Use History: Marijuana - Past Family History Mother Family Medical History: No Reported History Medications and Allergies Home Medications Medication Instructions Recorded Confirmed Type Sertraline HCl [Zoloft] 200 mg PO DAILY 11/16/18 05/16/20 History atenoloL [Tenormin] 50 mg PO DAILY 05/30/19 05/16/20 History Fluticasone Nasal [place] [Flonase 1 spr EA NOSTRIL BID PRN 01/21/20 05/16/20 History Nasal [place]] busPIRone HCL [Buspar] 30 mg PO HS 01/21/20 05/16/20 History ALPRAZolam [Xanax] 0.5 mg PO HS 05/16/20 05/16/20 History Acetaminophen Tab [Tylenol Tab] 1,000 mg PO DAILY PRN 05/16/20 05/16/20 History Ibuprofen [Motrin Ib] 800 mg PO DAILY PRN 05/16/20 05/16/20 History Loratadine 10 mg PO DAILY PRN 05/16/20 05/16/20 History Melatonin 10 mg PO HS PRN 05/16/20 05/16/20 History buPROPion XL [Wellbutrin XL] 450 mg PO HS 05/16/20 05/16/20 History Allergies Allergy/AdvReac Type Severity Reaction Status Date / Time Sulfa (Sulfonamide Allergy Rash/Hives Verified 05/16/20 18:21 Antibiotics) sulfamethoxazole Allergy Rash/Hives Verified 05/16/20 18:21 [From Bactrim] trimethoprim [From Bactrim] Allergy Rash/Hives Verified 05/16/20 18:21 Physical Examination - Vital Signs Vital Signs: Vital Signs Temp Pulse Pulse Resp BP BP Pulse Ox 05/17/20 08:28 98.2 F 66 18 155/95 99 05/17/20 02:30 97.1 F L 75 139/94 97 05/16/20 20:35 98.1 F 69 168/89 100 05/16/20 19:46 98 F 69 18 160/99 100 05/16/20 19:27 160/99 05/16/20 18:45 69 18 166/97 100 05/16/20 16:31 74 18 163/103 100 05/16/20 15:40 73 20 154/102 100 05/16/20 14:54 83 20 141/97 98 05/16/20 14:34 98 F 86 18 178/105 99 Intake and Output 05/16/20 05/17/20 05/17/20 22:59 06:59 14:59 Intake Total 220 Balance 220 Intake: Oral 220 Other: Voiding Method Toilet Toilet # Voids 1 Weight 109.769 kg GENERAL: The patient is lying in bed and is mild in acute distress. CHEST: The heart rate is regular rate rhythm. No murmurs to auscultation. LUNG: Clear to auscultation bilaterally no wheezing noted throughout. Not labored breathing. ABDOMEN/GI: Bowel sounds present in all 4 quadrants. No tenderness to palpation throughout. INTEGUMENTARY: Has M shaped scar on the forehead. Has tissue scar on left forearm and stated this was result from her previous hospitalization. NEUROLOGICAL: Higher mental function: The patient is awake, alert, oriented to self, place and time. Patient is following commands. No aphasia and no neglect. Cranial nerves: The pupils are round, equal (3-4mm) and reactive to light and accommodation. Visual hernandez are full to confrontation throughout. Extraocular movement is intact no nystagmus is noted. Facial sensation is normal to touch throughout. The facial strength is normal throughout. Hearing is normal bilaterally to hand rub. Tongue is midline and moved [id number] without any difficulty. No dysarthria is noted. Shoulder shrug is normal bilaterally. Motor: Gait is normal with normal arm swings. The strength is 5 over 5 throughout. Normal tone and bulk. Cerebellum: Normal finger to nose heel to chin bilaterally. Sensation: Sensation is normal to touch throughout. Reflexes 2+ throughout. Plantars are downgoing bilaterally. Results - Laboratory Findings CBC and BMP: 05/16/20 15:31 05/16/20 15:31 Abnormal Lab Findings: Abnormal Labs 05/16/20 05/16/20 15:31 15:31 WBC 12.7 H Neutrophils # 8.9 H Chloride 112 H Carbon Dioxide 19 L Glucose 104 H Assessment and Plan Assessment: 44-year-old woman who presented to the emergency department on 05/16/2020 for headache for the past 1 week. New onselt Cephalgia: Concern for cerebral venous sinus thrombosis. History of pneumonia History of suicidal attempt History of rhabdomyolysis with acute kidney injury. Tobacco use History of anxiety History of depression Plan: CT of the head which was reported as stable few focal area of white matter hypo- densities likely relating to changes of chronic small vessel ischemic changes. Consider contrast enhanced MRI or nonemergent basis to further assess these whit e matter changes. No acute intracranial abnormality seen. CT angiography of the head and neck is reported as no arterial angiography significant abnormality seen. Diminutive basilar he was significant flow in the postures communicating arteries. There is very little venous sinus enhancement. The possibility of sinus thrombosis is not excluded. MR venogram would be helpful for further evaluation if clinically indicated. Primary team ordered MRA MRV of the head. I recommend getting MRI Brain. If MRV and shows thrombosis then the recommended the patient to be transferred to [facility] for possible thrombectomy. Recommend for the patient to be hydrated well. Currently the patient is on the IV normal saline 120 mL an hour. If there is delay in transfer as result of no bed then patient can be started on heparin drip. Patient received Benadryl 50 mg IV push in the ED as well as Dilaudid 0.5 mg IV in the ED. Currently the patient is on Dilaudid 0.5 mg every 3 hours as needed as well as ibuprofen 800 mg when necessary as needed. Patient is also on Zofran 4 mg IV every 8 hours. She was counseled on tobacco cessation. Thank you for the consultation. Tawanda Devine M.D. Neuro-hospitalist Time with Patient: Greater than 30
--- NOTE | 2020-05-17 14:21 | MR ---
EXAMINATION TYPE: MR MRA/MRV head wo con DATE OF EXAM: 05/17/2020 COMPARISON: Correlation CTA and CT brain 05/16/2020. HISTORY: 44-year-old female rule out Venous thrombosis. CT abnormality. TECHNIQUE: High-resolution 3-D [id number] imaging of the [place] of [place] as well as the dural ve nous sinuses without IV contrast. Rotational 3-D reconstructions generated on a dedicated independent workstation. FINDINGS: CTA HEAD: Left vertebral artery is slightly hypoplastic compared to the right. The basilar artery is uniformly diminutive in caliber. 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 The internal carotid arteries are patent. There is a small 3.5 mm outpouching projecting medially from the supraclinoid left ICA near the ophth almic segment, refer to axial image 73. The remainder of the anterior circulation is patent. CTV HEAD: The sagittal and straight sinuses are patent. Absent flow within most of the left transverse sinus an d diminutive flow within the right transverse sinus. Thready flow within the left sigmoid sinus. Righ t sigmoid sinus is patent. IMPRESSION: CTA: 1. 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 Correlate for any chronic symptoms of vertebrobasilar insufficiency. The posterior cerebral arterie s are supplied by persistent origins from the internal carotid arteries. 2. A small 3.5 mm infundibulum versus saccular aneurysm projecting medially from the supraclinoid lef t ICA. Follow-up can be performed. CTV: 3. Flow gap within most of the left transverse sinus and thready flow within the left sigmoid sinus. Diminutive flow within the right transverse sinus. 4. These vessels appear small in caliber on CT. This could be secondary to some component of congenit al hypoplasia or chronic thrombus. Given the patient's headaches, demographics, and partially empty s ryland seen on CT head, consider the possibility of compressive narrowing in the setting of pseudotumor cerebri. Follow-up as clinically indicated. In addition, MRI brain without and with contrast can be considered.
[2020-05-17] MEDS ORDERED: ALPRAZolam 0.25 MG TAB PO PRN (15:19)
--- NOTE | 2020-05-17 18:54 | P.HPIM ---
History of Present Illness H&P Date: 05/17/20 Chief Complaint: Headache History of presenting complaint: This is a 44-year-old patient who follows that MAGY Ramos. Patient has extensive psychiatric history with bipolar depression and anxiety. Including previous suicide attempts. Patient now presents with headaches every morning for about a week. His present in the 400 just above the ED of the eyes every morning at least for an hour then goes off. Yesterday it became more constant she decided to come in. No nausea. No fever no chills. No vision changes. No injury. No new change in medications. Computed tomography scan of the brain in the ER was nonspecific. CT angiogram of the head showed very little contrast enhancement of the venous sinuses. Has possibility of sinus venous thrombosis was considered. Brain MRA was ordered for that purpose. I saw the patient this afternoon patient had a without he started to feel better. No nausea. Just tired. No weakness of the arms or legs. Review of systems: GEN.: Tired EYES: None HEENT: As above NECK: None RESPIRATORY: None CARDIOVASCULAR: None GASTROINTESTINAL: None GENITOURINARY: None MUSCULOSKELETAL: None LYMPHATICS: None HEMATOLOGICAL: None PSYCHIATRY: Slight depression NEUROLOGICAL: None Past medical history to include: Anxiety, depression, acute respiratory failure leading to intubation, suicide attempts Social history: Patient smoked for at least 20 years a pack a day stopped in November 2018.. Denies use of IV drug abuse. Has abused Vicodin the past. 11-year-old daughter's-has done marijuana and methamphetamines. Family history: Reviewed, noncontributory to presentation Physical examination: VITAL SIGNS: 98, 86, 18, 141/97, 99% room air GENERAL: BMI 39.1, laying in bed, awake. EYES: Pupils equal. Conjunctiva normal. HEENT: External appearance of nose and ears normal, oral cavity grossly normal. NECK: JVD not raised; masses not palpable. HEART: First and second heart sounds are normal; no edema. LUNGS: Respiratory rate increased, decreased breath sounds. ABDOMEN: Soft, nontender, liver spleen not palpable, no masses palpable. PSYCH: Alert and oriented x3; mood and affect slightly low NEUROLOGICAL: Cranial nerves grossly intact; no facial asymmetry, power and sensation grossly intact. LYMPHATICS: No lymph nodes palpable in the axilla and neck INVESTIGATIONS, reviewed in the clinical context: Computed tomography scan of the brain-nonspecific CT angiogram of the brain-decreased enhancement of the venous sinuses Assessment: -Acute venous sinus thrombosis suspected based on CT angiogram of the brain. -Bipolar disorder -Obesity BMI 39.1 Plan: MRA of the brain was done the results of which are pending . Later that is also reviewed and it shows. Absent blood flow in the left transverse sinus. Spoke to the nurse and she conveyed to the financial institution manager and patient was accepted at [facility]. IV heparin has been held off at this point so that does not interfere with any thrombectomy that'll be carried out. Past Medical History Past Medical History: Pneumonia, Respiratory Disorder Additional Past Medical History / Comment(s): Polysubstane abuse, history of drug overdose, history of ARDS requiring intubation and mechanical ventilation, history of severe rhabdomyolysis and LUIS MIGUEL (recovered), history of MSSA pneumonia and sepsis, history of metabolic encephalopathy (recovered), hisotory of depression, suicidal thoughts, suicide attempts, obesity History of Any Multi-Drug Resistant Organisms: MRSA Date of last positivie culture/infection: None MDRO Source:: nare Past Surgical History: No Surgical Hx Reported Additional Past Surgical History / Comment(s): breast biopsy (date unknown), trach placement and peg tube placement for ARDS Past Anesthesia/Blood Transfusion Reactions: No Reported Reaction Past Psychological History: Anxiety, Depression, PTSD Additional Psychological History / Comment(s): 5 previous suicide attempts Smoking Status: Current every day smoker Past Alcohol Use History: None Reported Additional Past Alcohol Use History / Comment(s): The patient was a smoker for at least 20 years 1 pack per day and quit in November 2018. She denies any IV drug use. She states she has abused Vicodin in the past. She is currently living with her daughter. There is a cat in the home. No recent travel. Past Drug Use History: Marijuana - Past Family History Mother Family Medical History: No Reported History Medications and Allergies Home Medications Medication Instructions Recorded Confirmed Type Sertraline HCl [Zoloft] 200 mg PO DAILY 11/16/18 05/16/20 History atenoloL [Tenormin] 50 mg PO DAILY 05/30/19 05/16/20 History Fluticasone Nasal [place] [Flonase 1 spr EA NOSTRIL BID PRN 01/21/20 05/16/20 History Nasal [place]] busPIRone HCL [Buspar] 30 mg PO HS 01/21/20 05/16/20 History ALPRAZolam [Xanax] 0.5 mg PO HS 05/16/20 05/16/20 History Acetaminophen Tab [Tylenol Tab] 1,000 mg PO DAILY PRN 05/16/20 05/16/20 History Ibuprofen [Motrin Ib] 800 mg PO DAILY PRN 05/16/20 05/16/20 History Loratadine 10 mg PO DAILY PRN 05/16/20 05/16/20 History Melatonin 10 mg PO HS PRN 05/16/20 05/16/20 History buPROPion XL [Wellbutrin XL] 450 mg PO HS 05/16/20 05/16/20 History Allergies Allergy/AdvReac Type Severity Reaction Status Date / Time Sulfa (Sulfonamide Allergy Rash/Hives Verified 05/16/20 18:21 Antibiotics) sulfamethoxazole Allergy Rash/Hives Verified 05/16/20 18:21 [From Bactrim] trimethoprim [From Bactrim] Allergy Rash/Hives Verified 05/16/20 18:21 Physical Exam Vitals: Vital Signs Temp Pulse Pulse Resp BP BP Pulse Ox 05/17/20 16:21 97.9 F 72 18 143/90 98 05/17/20 08:28 98.2 F 66 18 155/95 99 05/17/20 02:30 97.1 F L 75 139/94 97 05/16/20 20:35 98.1 F 69 168/89 100 05/16/20 19:46 98 F 69 18 160/99 100 05/16/20 19:27 160/99 05/16/20 18:45 69 18 166/97 100 Intake and Output 05/17/20 05/17/20 05/17/20 06:59 14:59 22:59 Intake Total 720 Balance 720 Intake: Oral 720 Other: Voiding Method Toilet Toilet Toilet # Voids 1 2 Weight 109.769 kg Results CBC & Chem 7: 05/16/20 15:31 05/16/20 15:31 Thrombosis Risk Factor Assmnt - Choose All That Apply Any of the Below Risk Factors Present?: Yes Each Factor Represents 1 point: Age 41-60 years, Obesity (BMI >25) Other Risk Factors: No Thrombosis Risk Factor Assessment Total Risk Factor Score: 2 Thrombosis Risk Factor Assessment Level: Low Risk
[2020-05-17] MEDS ORDERED: ENOXAPARIN 40 MG/0.4 ML SYRINGE SQ SCH (19:00)
[2020-05-17] MEDS ORDERED: buPROPion XL 150 MG TAB.ER.24H PO SCH (21:00)
[2020-05-17] MEDS ORDERED: busPIRone HCl 10 MG TAB PO SCH (21:00)
[2020-05-17] MEDS ORDERED: ALPRAZolam 0.5 MG TAB PO SCH (21:00)
[2020-05-17 22:01] VITALS: BP 142/93; PULSE 62; RESP 19; TEMP 97.4
== END 2020-05-17 22:48 | disposition critical access hospital (66) ==
LOC: EC 14:24 → 1SOBS 17:44
PROVIDERS: ADMIT Hospitalist; ATTEND Hospitalist
DX: R51.9 Headache, unspecified (principal); H53.149 Visual discomfort, unspecified; R11.2 Nausea with vomiting, unspecified; F31.9 Bipolar disorder, unspecified; E66.9 Obesity, unspecified; F41.9 Anxiety disorder, unspecified; F43.10 Post-traumatic stress disorder, unspecified; R90.82 White matter disease, unspecified; F17.210 Nicotine dependence, cigarettes, uncomplicated; Z20.828 Contact with and (suspected) exposure to other viral communicable diseases; Z87.01 Personal history of pneumonia (recurrent); Z79.899 Other long term (current) drug therapy; Z88.2 Allergy status to sulfonamides; Z87.09 Personal history of other diseases of the respiratory system; Z87.39 Personal history of other diseases of the musculoskeletal system and connective tissue; Z87.448 Personal history of other diseases of urinary system; Z86.19 Personal history of other infectious and parasitic diseases; Z86.69 Personal history of other diseases of the nervous system and sense organs; Z91.5 Personal history of self-harm; Z68.39 Body mass index [BMI] 39.0-39.9, adult; Z86.14 Personal history of Methicillin resistant Staphylococcus aureus infection; Z98.890 Other specified postprocedural states; Z71.6 Tobacco abuse counseling
CPT/HCPCS: 96361 ×2; 96372; 96376 ×3; 96374; 96375; 99285; 36415; 80053; 85025; 87635; 70496; 70450; 70544; G0378 ×2; J1200; J2765; J2405 ×2; J1650; J1170 ×2; Q9967

== ENCOUNTER 2020-07-20 02:25 | Observation (INO) | payer OTHER ==
[2020-07-20] MEDS ORDERED: KETOROLAC 15 MG/ML 1 ML VIAL IVP STA (03:07)
--- NOTE | 2020-07-20 03:11 | ED ---
Recheck HPI - General Source: patient Mode of arrival: ambulatory Limitations: no limitations <Adriana Barreto - Last Filed: 07/20/20 04:23> <Alfred Hawkins - Last Filed: 07/20/20 08:47> - General Chief Complaint: Recheck/Abnormal Lab/Rx Stated Complaint: Kidney stone Time Seen by Provider: 07/20/20 03:02 - History of Present Illness Initial Comments: 44yo female presenting for cc of intractable pain from left sided kidney stone. states she was at [facility] yesterday diagnosed with left sided kidney stone. states she has had nausea, vomiting and left flank pain. She states she took her last 2 norcos. Pt presenting for pain management. Denies fevers. Patient denies additional complaints Pt does have history of methamphetamine abuse. (Adriana Barreto) - Related Data Home Medications Medication Instructions Recorded Confirmed Sertraline HCl [Zoloft] 200 mg PO DAILY 11/16/18 07/20/20 atenoloL [Tenormin] 50 mg PO DAILY 05/30/19 07/20/20 Fluticasone Nasal [place] [Flonase 1 spr EA NOSTRIL BID PRN 01/21/20 07/20/20 Nasal [place]] busPIRone HCL [Buspar] 30 mg PO BID 01/21/20 07/20/20 Acetaminophen Tab [Tylenol Tab] 1,000 mg PO DAILY PRN 05/16/20 07/20/20 Loratadine 10 mg PO DAILY PRN 05/16/20 07/20/20 Melatonin 10 mg PO HS PRN 05/16/20 07/20/20 buPROPion XL [Wellbutrin XL] 450 mg PO HS 05/16/20 07/20/20 ALPRAZolam [Xanax] 1 mg PO HS PRN 07/20/20 07/20/20 Dabigatran Etexilate Mesylate 150 mg PO BID 07/20/20 07/20/20 [Pradaxa] Ibuprofen [Motrin] 800 mg PO Q8H PRN 07/20/20 07/20/20 Allergies Allergy/AdvReac Type Severity Reaction Status Date / Time Sulfa (Sulfonamide Allergy Rash/Hives Verified 07/20/20 07:04 Antibiotics) sulfamethoxazole Allergy Rash/Hives Verified 07/20/20 07:04 [From Bactrim] trimethoprim [From Bactrim] Allergy Rash/Hives Verified 07/20/20 07:04 Review of Systems ROS Other: All systems not noted in ROS Statement are negative. <Adriana Barreto - Last Filed: 07/20/20 04:23> ROS Other: All systems not noted in ROS Statement are negative. <Alfred Hawkins - Last Filed: 07/20/20 08:47> ROS Statement: Those systems with pertinent positive or pertinent negative responses have been documented in the HPI. Past Medical History Past Medical History: Pneumonia, Respiratory Disorder Additional Past Medical History / Comment(s): Polysubstane abuse, history of drug overdose, history of ARDS requiring intubation and mechanical ventilation, history of severe rhabdomyolysis and LUIS MIGUEL (recovered), history of MSSA pneumonia and sepsis, history of metabolic encephalopathy (recovered), hisotory of depression, suicidal thoughts, suicide attempts, obesity History of Any Multi-Drug Resistant Organisms: MRSA Date of last positivie culture/infection: None MDRO Source:: nare Past Surgical History: No Surgical Hx Reported Additional Past Surgical History / Comment(s): breast biopsy (date unknown), trach placement and peg tube placement for ARDS Past Anesthesia/Blood Transfusion Reactions: No Reported Reaction Past Psychological History: Anxiety, Depression, PTSD Smoking Status: Current every day smoker Past Alcohol Use History: None Reported Past Drug Use History: Marijuana - Past Family History Mother Family Medical History: No Reported History <Adriana Barreto - Last Filed: 07/20/20 04:23> General Exam Limitations: no limitations <Adriana Barreto - Last Filed: 07/20/20 04:23> - General Exam Comments Initial Comments: General: The patient is awake and alert, appears to be in discomfort Eye: Pupils are equal, round and reactive to light, extra-ocular movements are intact. No nystagmus. There is normal conjunctiva bilaterally. No signs of icterus. Ears, nose, mouth and throat: There are moist mucous membranes and no oral lesions. Neck: The neck is supple, there is no tenderness or JVD. Cardiovascular: There is a regular rate and rhythm. No murmur, rub or gallop is appreciated. Respiratory: Lungs are clear to auscultation, respirations are non-labored, breath sounds are equal. No wheezes, stridor, rales, or rhonchi. Gastrointestinal: Soft, non-distended, non-tender abdomen without masses or organomegaly noted. There is no rebound or guarding present. Musculoskeletal: Normal ROM, no tenderness. Strength 5/5. Sensation intact. Radial pulses equal bilaterally 2+. Neurological: A&O x 3. CN II-XII intact grossly, There are no obvious motor or sensory deficits. Coordination appears grossly intact. Speech is normal. Skin: Skin is warm and dry and no rashes or lesions are noted. Psychiatric: Cooperative, appropriate mood & affect, normal judgment. (Adriana Barreto) Course Vital Signs 07/20/20 07/20/20 07/20/20 02:56 04:41 06:40 Temperature 98.3 F Pulse Rate 73 69 57 L Respiratory 16 20 16 Rate Blood Pressure 131/77 141/90 131/92 O2 Sat by Pulse 97 99 99 Oximetry Medical Decision Making - Lab Data Result diagrams: 07/20/20 03:20 07/20/20 03:20 <Adriana Barreto - Last Filed: 07/20/20 04:23> - Lab Data Result diagrams: 07/20/20 03:20 07/20/20 03:20 <Alfred Hawkins - Last Filed: 07/20/20 08:47> - Medical Decision Making Hx of stone. Cr increased concern obstructive. Repeat CT ordered. Pt hydrated. Pt given pain control. Pt signed out to Dr. Hawkins pending CT (Adriana Barreto) I saw this patient in conjunction with the physician certified pathology assistant. I performed independent history and physical exam. Agree with case management. (Alfred Hawkins) - Lab Data Lab Results 07/20/20 07/20/20 07/20/20 Range/Units 03:20 03:20 03:20 WBC 16.3 H (3.8-10.6) k/uL RBC 4.36 (3.80-5.40) m/uL Hgb 12.6 (11.4-16.0) gm/dL Hct 39.6 (34.0-46.0) % MCV 90.8 (80.0-100.0) fL MCH 28.8 (25.0-35.0) pg MCHC 31.7 (31.0-37.0) g/dL RDW 16.4 H (11.5-15.5) % Plt Count 336 (150-450) k/uL MPV 7.4 Neutrophils % 76 % Lymphocytes % 17 % Monocytes % 5 % Eosinophils % 2 % Basophils % 0 % Neutrophils # 12.3 H (1.3-7.7) k/uL Lymphocytes # 2.8 (1.0-4.8) k/uL Monocytes # 0.8 (0-1.0) k/uL Eosinophils # 0.3 (0-0.7) k/uL Basophils # 0.0 (0-0.2) k/uL Anisocytosis Slight Sodium 139 (137-145) mmol/L Potassium 4.3 (3.5-5.1) mmol/L Chloride 114 H (98-107) mmol/L Carbon Dioxide 18 L (22-30) mmol/L Anion Gap 7 mmol/L BUN 20 H (7-17) mg/dL Creatinine 1.37 H (0.52-1.04) mg/dL Est GFR (CKD-EPI)AfAm 54 (>60 ml/min/1.73 sqM) Est GFR (CKD-EPI)NonAf 47 (>60 ml/min/1.73 sqM) Glucose 116 H (74-99) mg/dL Calcium 8.9 (8.4-10.2) mg/dL Total Bilirubin 0.4 (0.2-1.3) mg/dL AST 20 (14-36) U/L ALT 15 (4-34) U/L Alkaline Phosphatase 76 (38-126) U/L Total Protein 6.7 (6.3-8.2) g/dL Albumin 3.9 (3.5-5.0) g/dL Urine Color Yellow Urine Appearance Clear (Clear) Urine pH 6.5 (5.0-8.0) Ur Specific [place] 1.028 (1.001-1.035) Urine Protein Trace H (Negative) Urine Glucose (UA) Negative (Negative) Urine Ketones Negative (Negative) Urine Blood Moderate H (Negative) Urine Nitrite Negative (Negative) Urine Bilirubin Negative (Negative) Urine Urobilinogen <2.0 (<2.0) mg/dL Ur Leukocyte Esterase Trace H (Negative) Urine RBC 12 H (0-5) /hpf Urine WBC 5 (0-5) /hpf Ur Squamous Epith Cells 5 H (0-4) /hpf Hyaline Casts 1 (0-2) /lpf Urine Mucus Rare H (None) /hpf Disposition <Adriana Barreto - Last Filed: 07/20/20 04:23> <Alfred Hawkins - Last Filed: 07/20/20 08:47> Clinical Impression: Ureterolithiasis, Hydronephrosis Disposition: ADMITTED IP TO THIS HOSP Condition: Fair
[2020-07-20 03:31] LABS: Anisocytosis Slight; Basophils % (A) 0 %; Eosinophils # (A) 0.3 k/uL (0-0.7); Eosinophils % (A) 2 %; HCT 39.6 % (34.0-46.0); HGB 12.6 gm/dL (11.4-16.0); Lymphocytes # (A) 2.8 k/uL (1.0-4.8); Lymphocytes % (A) 17 %; MCH 28.8 pg (25.0-35.0); MCHC 31.7 g/dL (31.0-37.0); MCV 90.8 fL (80.0-100.0); Mean Platelet Volume 7.4; Monocytes # (A) 0.8 k/uL (0-1.0); Monocytes % (A) 5 %; Neutrophils # (A) 12.3 k/uL (1.3-7.7); Neutrophils % (A) 76 %; Platelet Count 336 k/uL (150-450); RBC 4.36 m/uL (3.80-5.40); RDW 16.4 % (11.5-15.5); WBC 16.3 k/uL (3.8-10.6)
[2020-07-20 03:43] LABS: Appearance,Urine Clear (Clear); Bilirubin,Urine Negative (Negative); Blood,Urine Moderate (Negative); Color,Urine Yellow; Glucose,Urine (UA) Negative (Negative); Hyaline Casts,Urine 1 /lpf (0-2); Ketones,Urine Negative (Negative); Leukocyte Esterase,Urine Trace (Negative); Mucus,Urine Rare /hpf; Nitrite,Urine Negative (Negative); PH, Urine 6.5 (5.0-8.0); Protein,Urine Trace (Negative); RBC,Urine 12 /hpf (0-5); Specific Gravity,Urine 1.028 (1.001-1.035); Squamous Epithelial Cell,Urine 5 /hpf (0-4); Urobilinogen,Urine <2.0 mg/dL (<2.0); WBC,Urine 5 /hpf (0-5)
[2020-07-20 03:49] LABS: Albumin 3.9 g/dL (3.5-5.0); Calcium 8.9 mg/dL (8.4-10.2); Potassium 4.3 mmol/L (3.5-5.1); Total Bilirubin 0.4 mg/dL (0.2-1.3); Total Protein 6.7 g/dL (6.3-8.2)
[2020-07-20] MEDS ORDERED: SODIUM CHLORIDE 0.9% 1,000 ML IV ONE (03:53)
[2020-07-20] MEDS ORDERED: HYDROmorphone 0.5 MG/0.5 ML SYRINGE IVP STA (04:09)
--- NOTE | 2020-07-20 04:24 | CT ---
EXAM: CT Abdomen and Pelvis Without Intravenous Contrast CLINICAL HISTORY: ITS.REASON CT Reason: left flank pain TECHNIQUE: Axial computed tomography images of the abdomen and pelvis without intravenous contrast. CTDI is 22.77 mGy and DLP is 1319.4 mGy-cm. This CT exam was performed using one or more of the following dose reduction techniques: automated exposure control, adjustment of the mA and/or kV according to patient size, and/or use of iterative reconstruction technique. COMPARISON: No relevant prior studies available. FINDINGS: Lung bases: No mass. No consolidation. ABDOMEN: Liver: Enlarged. Gallbladder and bile ducts: Unremarkable. Pancreas: No ductal dilation. Spleen: Unremarkable. Adrenals: Unremarkable. Kidneys and ureters: Punctate nonobstructive stone in the left kidney. Mild left hydronephrosis secondary to 7-8 mm stone in the UPJ. Stomach and bowel: No bowel obstruction. No bowel wall thickening. PELVIS: Appendix: Appendix tip is dilated to 11 mm. Bladder: No stones. Reproductive: Unremarkable. ABDOMEN and PELVIS: Intraperitoneal space: Unremarkable. Bones/joints: No acute fractures. Soft tissues: Unremarkable. Vasculature: No abdominal aortic aneurysm. Lymph nodes: No enlarged lymph nodes. IMPRESSION: 1. Punctate nonobstructive stone in the left kidney. Mild left hydronephrosis secondary to 7-8 mm stone in the UPJ. 2. Incidentally, the tip of the appendix is dilated to 11 mm. Although there is no significant inflammatory changes, cannot exclude early tip appendicitis.
[2020-07-20] MEDS: SODIUM CHLORIDE 0.9% 1,000 ML IV SCH ×2 (04:37→14:24)
[2020-07-20] MEDS ORDERED: ONDANSETRON 4 MG/2 ML VIAL IVP PRN (06:33)
[2020-07-20] MEDS ORDERED: HYDROmorphone 0.5 MG/0.5 ML SYRINGE IVP PRN (06:33)
[2020-07-20] MEDS ORDERED: HYDROmorphone 1 MG/ML 1 ML SYRINGE IVP STA (06:33)
[2020-07-20] MEDS ORDERED: HYDROmorphone 1 MG/ML 1 ML SYRINGE IVP PRN (06:33)
[2020-07-20] MEDS ORDERED: NALOXONE 0.4 MG/ML 1 ML VIAL IV PRN (06:33)
[2020-07-20] MEDS ORDERED: LACTATED RINGERS 1,000 ML IV ONE (09:09)
[2020-07-20] MEDS ORDERED: DEXAMETHASONE SOD PHOSPHATE 4 MG/ML 1 ML VIAL IV ONE (09:25)
[2020-07-20] MEDS ORDERED: ONDANSETRON 4 MG/2 ML VIAL IVP ONE (09:25)
--- NOTE | 2020-07-20 09:28 | P.GSHP ---
History of Present Illness H&P Date: 07/20/20 44-year-old female who presented to the emergency room this morning with a left ureteral stone, 8 mm at the UPJ. She had been in [facility] 24 hours prior with the same stone. She has never gotten any pain relief over the last 48 hours. This is her first stone. Because of the persistent pain she is admitted. There is no evidence of infection. There is no previous stones. There is no family history of stones. There is no other urologic history. We discussed treatment options. She is on blood thinner for a blood clot in her brain a few months ago and cannot come off this. She therefore is not a candidate for shockwave lithotripsy or percutaneous nephrostolithotomy. She wishes something to be done. She comes for left ureteroscopy laser lithotripsy and probable stent placement. - Constitutional Constitutional: Reports as per HPI - Genitourinary (Female) Genitourinary: Reports as per HPI - Neurological Neurological: Reports as per HPI Past Medical History Past Medical History: Pneumonia, Respiratory Disorder Additional Past Medical History / Comment(s): Polysubstane abuse, history of drug overdose, history of ARDS requiring intubation and mechanical ventilation, history of severe rhabdomyolysis and LUIS MIGUEL (recovered), history of MSSA pneumonia and sepsis, history of metabolic encephalopathy (recovered), hisotory of depression, suicidal thoughts, suicide attempts, obesity. 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 Date of last positivie culture/infection: None MDRO Source:: nare Past Surgical History: No Surgical Hx Reported Additional Past Surgical History / Comment(s): breast biopsy (date unknown), trach placement and peg tube placement for ARDS Past Anesthesia/Blood Transfusion Reactions: No Reported Reaction Past Psychological History: Anxiety, Depression, PTSD Additional Psychological History / Comment(s): 5 previous suicide attempts Smoking Status: Current every day smoker Past Alcohol Use History: None Reported Additional Past Alcohol Use History / Comment(s): The patient was a smoker for at least 20 years 1 pack per day and quit in November 2018. She denies any IV drug use. She states she has abused Vicodin in the past. She is currently living with her daughter. There is a cat in the home. No recent travel. Past Drug Use History: Marijuana Additional Drug Use History / Comment(s): occasional alcohol drinking - Past Family History Mother Family Medical History: No Reported History Medications and Allergies Home Medications Medication Instructions Recorded Confirmed Type Sertraline HCl [Zoloft] 200 mg PO DAILY 11/16/18 07/20/20 History atenoloL [Tenormin] 50 mg PO DAILY 05/30/19 07/20/20 History Fluticasone Nasal [place] [Flonase 1 spr EA NOSTRIL BID PRN 01/21/20 07/20/20 History Nasal [place]] busPIRone HCL [Buspar] 30 mg PO BID 01/21/20 07/20/20 History Acetaminophen Tab [Tylenol Tab] 1,000 mg PO DAILY PRN 05/16/20 07/20/20 History Loratadine 10 mg PO DAILY PRN 05/16/20 07/20/20 History Melatonin 10 mg PO HS PRN 05/16/20 07/20/20 History buPROPion XL [Wellbutrin XL] 450 mg PO HS 05/16/20 07/20/20 History ALPRAZolam [Xanax] 1 mg PO HS PRN 07/20/20 07/20/20 History Dabigatran Etexilate Mesylate 150 mg PO BID 07/20/20 07/20/20 History [Pradaxa] Ibuprofen [Motrin] 800 mg PO Q8H PRN 07/20/20 07/20/20 History Allergies Allergy/AdvReac Type Severity Reaction Status Date / Time Sulfa (Sulfonamide Allergy Rash/Hives Verified 07/20/20 09:07 Antibiotics) sulfamethoxazole Allergy Rash/Hives Verified 07/20/20 09:07 [From Bactrim] trimethoprim [From Bactrim] Allergy Rash/Hives Verified 07/20/20 09:07 Surgical - Exam Vital Signs Temp Pulse Resp BP Pulse Ox 98.3 F 73 16 131/77 97 07/20/20 02:56 07/20/20 02:56 07/20/20 02:56 07/20/20 02:56 07/20/20 02:56 - General well developed, moderate distress, obese - Eyes PERRL - ENT no hearing loss - Neck trachea midline - Respiratory normal expansion, normal respiratory effort - Cardiovascular Rhythm: regular - Abdomen Abdomen: soft, tender - Integumentary no rash, no growths - Neurologic normal coordination, normal sensation - Musculoskeletal normal posture - Psychiatric oriented to time, oriented to person, oriented to place, speech is normal, memory intact Results - Labs 07/20/20 03:20 07/20/20 03:20 Abnormal Lab Results - Last 24 Hours (Table) 07/20/20 07/20/20 07/20/20 Range/Units 03:20 03:20 03:20 WBC 16.3 H (3.8-10.6) k/uL RDW 16.4 H (11.5-15.5) % Neutrophils # 12.3 H (1.3-7.7) k/uL Chloride 114 H (98-107) mmol/L Carbon Dioxide 18 L (22-30) mmol/L BUN 20 H (7-17) mg/dL Creatinine 1.37 H (0.52-1.04) mg/dL Glucose 116 H (74-99) mg/dL Urine Protein Trace H (Negative) Urine Blood Moderate H (Negative) Ur Leukocyte Esterase Trace H (Negative) Urine RBC 12 H (0-5) /hpf Ur Squamous Epith Cells 5 H (0-4) /hpf Urine Mucus Rare H (None) /hpf Diabetes panel 07/20/20 Range/Units 03:20 Sodium 139 (137-145) mmol/L Potassium 4.3 (3.5-5.1) mmol/L Chloride 114 H (98-107) mmol/L Carbon Dioxide 18 L (22-30) mmol/L BUN 20 H (7-17) mg/dL Creatinine 1.37 H (0.52-1.04) mg/dL Glucose 116 H (74-99) mg/dL Calcium 8.9 (8.4-10.2) mg/dL AST 20 (14-36) U/L ALT 15 (4-34) U/L Alkaline Phosphatase 76 (38-126) U/L Total Protein 6.7 (6.3-8.2) g/dL Albumin 3.9 (3.5-5.0) g/dL Calcium panel 07/20/20 Range/Units 03:20 Calcium 8.9 (8.4-10.2) mg/dL Albumin 3.9 (3.5-5.0) g/dL Pituitary panel 07/20/20 Range/Units 03:20 Sodium 139 (137-145) mmol/L Potassium 4.3 (3.5-5.1) mmol/L Chloride 114 H (98-107) mmol/L Carbon Dioxide 18 L (22-30) mmol/L BUN 20 H (7-17) mg/dL Creatinine 1.37 H (0.52-1.04) mg/dL Glucose 116 H (74-99) mg/dL Calcium 8.9 (8.4-10.2) mg/dL Adrenal panel 07/20/20 Range/Units 03:20 Sodium 139 (137-145) mmol/L Potassium 4.3 (3.5-5.1) mmol/L Chloride 114 H (98-107) mmol/L Carbon Dioxide 18 L (22-30) mmol/L BUN 20 H (7-17) mg/dL Creatinine 1.37 H (0.52-1.04) mg/dL Glucose 116 H (74-99) mg/dL Calcium 8.9 (8.4-10.2) mg/dL Total Bilirubin 0.4 (0.2-1.3) mg/dL AST 20 (14-36) U/L ALT 15 (4-34) U/L Alkaline Phosphatase 76 (38-126) U/L Total Protein 6.7 (6.3-8.2) g/dL Albumin 3.9 (3.5-5.0) g/dL - Imaging CT scan - abdomen: report reviewed, image reviewed CT scan - pelvis: report reviewed, image reviewed
[2020-07-20] MEDS ORDERED: PROPOFOL 10 MG/ML 20 ML VIAL IV ONE (09:52)
[2020-07-20] MEDS ORDERED: SUCCINYLCHOLINE CHLORIDE VIAL 200 MG/10 ML VIAL IV ONE (09:52)
[2020-07-20] MEDS ORDERED: WATER FOR INJECTION, STERILE 10 ML VIAL IV ONE (09:52)
[2020-07-20] MEDS ORDERED: LIDOCAINE 1% INJ 10MG/ML (20 ML MDV) ONE (09:52)
[2020-07-20] MEDS ORDERED: fentaNYL (PF) 50 MCG/ML 2 ML AMP ONE (09:52)
[2020-07-20] MEDS ORDERED: MIDAZOLAM 2 MG/2 ML VIAL ONE (09:52)
[2020-07-20] MEDS ORDERED: ePHEDrine SULFATE/0.9% NACL/PF 50 MG/5 ML SYRINGE IV ONE (09:52)
[2020-07-20] MEDS ORDERED: PHENYLEPHRINE 10 MG/ML VIAL ONE (09:52)
[2020-07-20] MEDS ORDERED: SODIUM CHLORIDE 0.9% 100 ML with ceFAZolin 2,000 MG IV ONE ×2 (10:05)
[2020-07-20] MEDS ORDERED: IOPAMIDOL-370 50ML BTL IRRIGATION ONE (10:15)
[2020-07-20] MEDS ORDERED: HYDROmorphone 0.5 MG/0.5 ML SYRINGE IVP ONE ×3 (10:55→11:20)
--- NOTE | 2020-07-20 10:57 | P.OP ---
Date of Procedure: 07/20/20 Preoperative Diagnosis: Left left ureteral calculus with obstruction Postoperative Diagnosis: Same Procedure(s) Performed: Cystoscopy, left retrograde pyelogram, left ureteroscopy with laser lithotripsy, placement of 624 double-J cath Anesthesia: EZEQUIEL Surgeon: Benji Oakes Estimated Blood Loss (ml): 10 Pathology: none sent Condition: stable Disposition: PACU Indications for Procedure: Patient is 44. She has a large proximal left ureteral stone measured 8 mm on computed tomography scan. It is obstructing causing pain. She's been in and out of the emergency room several times over the last 48 hours she comes for left ureteroscopy and stone removal Description of Procedure: Patient is brought to the operating suite. She is given a general endotracheal anesthesia. She's placed lithotomy for sterile prep and drape. Cystoscopy with a Foroblique lens and 21-Yi sheath identifies a normal urethra. The ureteral orifices are normal. The bladder mucosa is unremarkable. A nice see the stone on fluoroscopy. She is quite heavy though. Within a cone-tipped catheter a left retrograde pyelogram performed. The stone is 8-9 mm in the proximal ureter on the left. I attempted to pass a semirigid scope up to the stone but I am unable to do so. I then pass an 035 wire through the semirigid scope up into the renal pelvis. Over the wires passed a 10-16-Rfaqlf reentry sheath. The sheath is removed and the flexible ureteroscope was passed up to the stone. With the 200 laser probe the stone was broken up into tiny pieces. Falls back into the renal pelvis and I continued to break it up into sand. At the end of the procedure there is no significant remaining fragments up. An 035 wires passed through the ureteroscope up into the kidney. I removed the ureteroscope and pass a 6 x 24 double-J catheter up the left ureter into the r enal pelvis and in the bladder. The bladder is drained the patient is awakened and returned recovery room good condition. She tolerated procedure well. She'll be discharged home later today upon recovery.
--- NOTE | 2020-07-20 10:58 | P.DS ---
Providers Date of admission: 07/20/20 06:40 Attending physician: Benji Oakes Primary care physician: Leandro Reji [facility] Course: The patient is 44. She has been in the emergency room both at [facility] and here for a large proximal ureteral stone. She is admitted for pain control and procedure. She underwent a left ureteroscopy laser lithotripsy to a large proximal ureteral stone. He will be discharged home later today if she tolerates a diet and her pain is under control. She'll follow-up in the office in 10 days for cystoscopy and stent removal. She'll be given a prescription of Toradol. Patient Condition at Discharge: Good Plan - Discharge Summary Discharge Rx Participant: Yes New Discharge Prescriptions: New Ketorolac [Toradol] 10 mg PO Q6HR PRN #14 tab PRN Reason: Pain No Action Sertraline HCl [Zoloft] 200 mg PO DAILY atenoloL [Tenormin] 50 mg PO DAILY busPIRone HCL [Buspar] 30 mg PO BID Fluticasone Nasal [place] [Flonase Nasal [place]] 1 spr EA NOSTRIL BID PRN PRN Reason: Allergy Symptoms Acetaminophen Tab [Tylenol Tab] 1,000 mg PO DAILY PRN PRN Reason: Migraine Headache Melatonin 10 mg PO HS PRN PRN Reason: Insomnia Loratadine 10 mg PO DAILY PRN PRN Reason: Allergy Symptoms buPROPion XL [Wellbutrin XL] 450 mg PO HS ALPRAZolam [Xanax] 1 mg PO HS PRN PRN Reason: Anxiety Dabigatran Etexilate Mesylate [Pradaxa] 150 mg PO BID Ibuprofen [Motrin] 800 mg PO Q8H PRN PRN Reason: Pain Discharge Medication List Sertraline HCl [Zoloft] 200 mg PO DAILY 11/16/18 [History] atenoloL [Tenormin] 50 mg PO DAILY 05/30/19 [History] Fluticasone Nasal [place] [Flonase Nasal [place]] 1 spr EA NOSTRIL BID PRN 01/21/20 [History] busPIRone HCL [Buspar] 30 mg PO BID 01/21/20 [History] Acetaminophen Tab [Tylenol Tab] 1,000 mg PO DAILY PRN 05/16/20 [History] Loratadine 10 mg PO DAILY PRN 05/16/20 [History] Melatonin 10 mg PO HS PRN 05/16/20 [History] buPROPion XL [Wellbutrin XL] 450 mg PO HS 05/16/20 [History] ALPRAZolam [Xanax] 1 mg PO HS PRN 07/20/20 [History] Dabigatran Etexilate Mesylate [Pradaxa] 150 mg PO BID 07/20/20 [History] Ibuprofen [Motrin] 800 mg PO Q8H PRN 07/20/20 [History] Ketorolac [Toradol] 10 mg PO Q6HR PRN #14 tab 07/20/20 [Rx] Follow up Appointment(s)/Referral(s): Leandro Mendoza DO [Primary Care Provider] - 1-2 days Benji Oaeks MD [STAFF PHYSICIAN] - 10 Days (cysto with stent removal) Discharge Disposition: HOME SELF-CARE
[2020-07-20] MEDS ORDERED: ACETAMINOPHEN TAB 325 MG TAB PO PRN (10:59)
[2020-07-20] MEDS ORDERED: HYDROcodone/APAP 5-325MG 1 EACH TAB PO PRN (10:59)
[2020-07-20] MEDS ORDERED: HYDROmorphone 2 MG/ML 1 ML SYRINGE IVP PRN (10:59)
--- NOTE | 2020-07-20 10:59 | FL ---
EXAMINATION TYPE: FL urography retrograde DATE OF EXAM: 07/20/2020 COMPARISON: CT abdomen and pelvis earlier today HISTORY: Left ureter calculus TECHNIQUE: Fluoroscopy. FINDINGS: Fluoroscopic guidance was provided during left ureter calculus treatment procedure perform ed by Dr. Oakes. A total of 33 seconds of fluoroscopic time was utilized during the procedure and 3 spot images was acquired. Images acquired show access into left ureter for treatment of proximal obst ructing left ureter stone. IMPRESSION: As Above.
[2020-07-20] MEDS ORDERED: diphenhydrAMINE 50 MG/ML 1 ML VIAL IVP ONE (11:00)
[2020-07-20] MEDS ORDERED: DEXTROSE 5%-0.45% NACL 1,000 ML IV SCH (11:00)
[2020-07-20] MEDS ORDERED: MEPERIDINE 50 MG/ML SYRINGE IVP ONE ×2 (11:10→11:16)
[2020-07-20] MEDS ORDERED: MELATONIN 5 MG TABLET PO PRN (11:23)
[2020-07-20] MEDS ORDERED: ALPRAZolam 1 MG TAB PO PRN (11:23)
[2020-07-20] MEDS ORDERED: FLUTICASONE 50MCG/SPRAY NASAL 16GM EA NOSTRIL PRN (11:23)
[2020-07-20] MEDS ORDERED: IBUPROFEN 800 MG TAB PO PRN (11:23)
[2020-07-20] MEDS ORDERED: LORATADINE 10 MG TAB PO PRN (11:23)
[2020-07-20] MEDS ORDERED: KETOROLAC 15 MG/ML 1 ML VIAL IVP ONE (11:33)
[2020-07-20 14:49] VITALS: RESP 19; TEMP 98.6
[2020-07-20 14:55] VITALS: BP 93/66; PULSE 64
[2020-07-20] MEDS ORDERED: busPIRone HCl 10 MG TAB PO SCH (21:00)
[2020-07-20] MEDS ORDERED: buPROPion XL 150 MG TAB.ER.24H PO SCH (21:00)
[2020-07-20] MEDS ORDERED: DABIGATRAN 150 MG CAP PO SCH (21:00)
[2020-07-21] MEDS ORDERED: SERTRALINE 100 MG TAB PO SCH (09:00)
[2020-07-21] MEDS ORDERED: atenoloL 50 MG TAB PO SCH (09:00)
== END 2020-07-20 15:28 | disposition home or self-care (01) ==
LOC: EC 02:25 → 6NMEDSUR 06:40
PROVIDERS: ADMIT Urology; ATTEND Urology
DX: N13.2 Hydronephrosis with renal and ureteral calculous obstruction (principal); F32.9 Major depressive disorder, single episode, unspecified; F43.10 Post-traumatic stress disorder, unspecified; F41.9 Anxiety disorder, unspecified; E66.9 Obesity, unspecified; Z68.41 Body mass index [BMI] 40.0-44.9, adult; F17.210 Nicotine dependence, cigarettes, uncomplicated; Z79.1 Long term (current) use of non-steroidal anti-inflammatories (NSAID); Z79.899 Other long term (current) drug therapy; Z88.1 Allergy status to other antibiotic agents; Z88.2 Allergy status to sulfonamides; Z86.19 Personal history of other infectious and parasitic diseases; Z91.5 Personal history of self-harm; Z87.898 Personal history of other specified conditions; Z87.01 Personal history of pneumonia (recurrent); Z86.14 Personal history of Methicillin resistant Staphylococcus aureus infection; Z86.718 Personal history of other venous thrombosis and embolism
CPT/HCPCS: 96376 ×2; 96361; 96374; 96375; 99285; 36415; 80053; 85025; 81001; 81025; 74420; 74176; 52356; G0378; C2625; C1758; C1769; J1170 ×3; J1200; J1100; J2175; J2405; J0690; J1885; Q9967

== ENCOUNTER 2021-07-11 17:06 | Emergency (ER) | payer OTHER ==
[2021-07-11 19:08] VITALS: RESP 18; TEMP 97.6
[2021-07-11] MEDS ORDERED: MORPHINE SULFATE 4 MG/ML SYRINGE IV STA (19:59)
[2021-07-11] MEDS ORDERED: SODIUM CHLORIDE 0.9% 1,000 ML IV STA (19:59)
--- NOTE | 2021-07-11 20:32 | ED ---
General Adult HPI - General Chief complaint: Headache Stated complaint: headache, dental pain Time Seen by Provider: 07/11/21 20:00 Source: patient, RN notes reviewed, old records reviewed Mode of arrival: ambulatory Limitations: no limitations - History of Present Illness Initial comments: This is a well-appearing 45-year-old female presents to the emergency room with 2 weeks of a frontal headache from yazidi to yazidi with right lower dental pain. She states that she does have an appointment with her dentist tomorrow for dental caries. She states that she does have a history of a blood clot in her brain and is concerned that she may have another one. She describes the pain as an ache, similar to when she had the blood clot. She has no complaints of dizziness, visual disturbances, fever, nausea vomiting or incontinence of bowel or bladder. She states she was treated at [facility] for the blood clot in her brain in April 2020. She states that she is not taking any blood thinners and only takes Zoloft and Wellbutrin and Xanax daily. -: week(s) (1) Location: head (frontal) Severity scale (1-10): 8 Quality: aching Consistency: constant Improves with: none Worsens with: none Associated Symptoms: other (right lower dental pain) Treatments Prior to Arrival: none - Related Data Home Medications Medication Instructions Recorded Confirmed Sertraline HCl [Zoloft] 200 mg PO DAILY 11/16/18 07/11/21 atenoloL [Tenormin] 50 mg PO DAILY 05/30/19 07/11/21 Fluticasone Nasal [place] [Flonase 1 spr EA NOSTRIL DAILY PRN 01/21/20 07/11/21 Nasal [place]] busPIRone HCL [Buspar] 30 mg PO BID PRN 01/21/20 07/11/21 Acetaminophen Tab [Tylenol Tab] 1,000 mg PO DAILY PRN 05/16/20 07/11/21 Loratadine 10 mg PO DAILY PRN 05/16/20 07/11/21 Melatonin 10 mg PO HS PRN 05/16/20 07/11/21 buPROPion XL [Wellbutrin XL] 450 mg PO HS 05/16/20 07/11/21 ALPRAZolam [Xanax] 1 mg PO HS PRN 07/20/20 07/11/21 Albuterol Inhaler [Ventolin Hfa 2 puff INHALATION RT-Q6H PRN 07/11/21 07/11/21 Inhaler] Allergies Allergy/AdvReac Type Severity Reaction Status Date / Time Sulfa (Sulfonamide Allergy Rash/Hives Verified 07/11/21 20:29 Antibiotics) sulfamethoxazole Allergy Rash/Hives Verified 07/11/21 20:29 [From Bactrim] trimethoprim [From Bactrim] Allergy Rash/Hives Verified 07/11/21 20:29 Review of Systems ROS Statement: Those systems with pertinent positive or pertinent negative responses have been documented in the HPI. ROS Other: All systems not noted in ROS Statement are negative. Past Medical History Past Medical History: Pneumonia, Respiratory Disorder Additional Past Medical History / Comment(s): Polysubstane abuse, history of drug overdose, history of ARDS requiring intubation and mechanical ventilation, history of severe rhabdomyolysis and LUIS MIGUEL (recovered), history of MSSA pneumonia and sepsis, history of metabolic encephalopathy (recovered), hisotory of depression, suicidal thoughts, suicide attempts, obesity. 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 Date of last positivie culture/infection: None MDRO Source:: nare Past Surgical History: No Surgical Hx Reported Additional Past Surgical History / Comment(s): breast biopsy (date unknown), trach placement and peg tube placement for ARDS Past Anesthesia/Blood Transfusion Reactions: No Reported Reaction Past Psychological History: Anxiety, Depression, PTSD Smoking Status: Current every day smoker Past Alcohol Use History: None Reported Past Drug Use History: Marijuana - Past Family History Mother Family Medical History: No Reported History General Exam Limitations: no limitations General appearance: alert, in no apparent distress Head exam: Present: atraumatic, normocephalic, normal inspection Eye exam: Present: normal appearance, PERRL, EOMI. Absent: scleral icterus, conjunctival injection, nystagmus, periorbital swelling, periorbital tenderness Pupils: Present: normal accommodation ENT exam: Present: normal exam, normal oropharynx, mucous membranes moist Expanded Mouth exam: Present: normal external inspection, tongue normal, tongue elevation. Absent: drooling, trismus, muffled voice Teeth exam: Present: dental caries Throat exam: normal inspection. negative: tonsillar erythema, tonsillomegaly, tonsillar exudate, R peritonsillar mass, L peritonsillar mass Neck exam: Present: normal inspection, full ROM. Absent: tenderness, meningismus, lymphadenopathy Respiratory exam: Present: normal lung sounds bilaterally. Absent: respiratory distress, wheezes, rales, rhonchi, stridor Cardiovascular Exam: Present: regular rate, normal rhythm, normal heart sounds. Absent: systolic murmur, diastolic murmur, rubs, gallop, clicks, JVD GI/Abdominal exam: Present: soft, normal bowel sounds. Absent: distended, tenderness, guarding, rebound, rigid Extremities exam: Present: normal inspection, full ROM, normal capillary refill. Absent: tenderness, pedal edema, joint swelling, calf tenderness Neurological exam: Present: alert, oriented X3 Expanded Patient oriented to: Present: person, place, time Speech: Present: fluid speech Cranial nerves: EOM's Intact: Normal, Gag Reflex: Normal, Tongue Deviation: Normal Cerebellar function: Finger to Nose: Normal, Heel to Irene: Normal Motor strength exam: RUE: 5, LUE: 5, RLE: 5, LLE: 5 Eye Response: (4) open spontaneously Motor Response: (6) obeys commands Verbal Response: (5) oriented Page Total: 15 Psychiatric exam: Present: normal affect, normal mood. Absent: anxious, flat affect Skin exam: Present: warm, dry, normal color. Absent: cyanosis, diaphoretic Course Vital Signs 07/11/21 18:56 Temperature 97.6 F Pulse Rate 59 L Respiratory 18 Rate Blood Pressure 149/99 O2 Sat by Pulse 95 Oximetry - Reevaluation(s) Reevaluation #1: 07/11/21 22:44 I dd discuss this case with Dr. Mohan who suggested I speak with neurology. I did speak with Dr. Devine who suggests patient get a CT angio brain. Patient continues to have a 7 out of 10 frontal headache described as an ache. No focal neurological deficits. 07/11/21 22:46 07/11/21 22:46 Time: 22:44 Medical Decision Making - Medical Decision Making Well appearing 45-year-old female presents with 2 weeks of a frontal headache from yazidi to yazidi with right lower dental pain. She states that she does have an appointment with her dentist tomorrow for dental caries. She states that she does have a history of a blood clot in her brain the pain is similar to when she had the blood clot. She has no complaints of dizziness, visual disturbances, fever, nausea vomiting or incontinence of bowel or bladder. She states she was treated at [facility] for the blood clot in her brain in 2019 and we were unable to retrieve those medical records. She states that she is not taking any blood thinners. CBC and electrolytes are unremarkable. Urinalysis is negative for signs of in fection or ketones. CT brain shows an old infarct anterior right internal capsule without change no acute abnormality. Patient has no focal neurological deficits. She denies any visual disturbances. She was given IV fluids, morphine and Benadryl in the emergency room. She requested Dilaudid stating it worked in the past and had complete pain relief. Case was discussed with Dr. Gomez and Dr. Mohan. Dr. Devine was notified. CTA was performed. CT angiogram of the head shows no mass effect, no evidence of intracranial arterial stenosis. There is arterial flow to the anterior middle and posterior cerebral arteries, there is no mass effect. There is no evidence of intracranial aneurysm. Patient states that her pain resolved after getting the Dilaudid IV. She believes now that the pain may be related to her dental pain. She will be discharged home and directed to return to the emergency room for any new or concerning symptoms. She states she is going to be staying with her parents this evening. She is agreeable to this plan of care. Patient was given a referral to neurology. - Lab Data Result diagrams: 07/11/21 20:36 07/11/21 20:36 Lab Results 07/11/21 07/11/21 07/11/21 Range/Units 20:36 20:36 21:44 WBC 12.0 H (3.8-10.6) k/uL RBC 4.57 (3.80-5.40) m/uL Hgb 13.1 (11.4-16.0) gm/dL Hct 41.8 (34.0-46.0) % MCV 91.4 (80.0-100.0) fL MCH 28.7 (25.0-35.0) pg MCHC 31.4 (31.0-37.0) g/dL RDW 15.5 (11.5-15.5) % Plt Count 287 (150-450) k/uL MPV 7.5 Neutrophils % 59 % Lymphocytes % 34 % Monocytes % 3 % Eosinophils % 1 % Basophils % 1 % Neutrophils # 7.1 (1.3-7.7) k/uL Lymphocytes # 4.1 (1.0-4.8) k/uL Monocytes # 0.4 (0-1.0) k/uL Eosinophils # 0.1 (0-0.7) k/uL Basophils # 0.1 (0-0.2) k/uL Sodium 139 (137-145) mmol/L Potassium 4.2 (3.5-5.1) mmol/L Chloride 114 H (98-107) mmol/L Carbon Dioxide 17 L (22-30) mmol/L Anion Gap 8 mmol/L BUN 20 H (7-17) mg/dL Creatinine 0.94 (0.52-1.04) mg/dL Est GFR (CKD-EPI)AfAm 85 (>60 ml/min/1.73 sqM) Est GFR (CKD-EPI)NonAf 74 (>60 ml/min/1.73 sqM) Glucose 85 (74-99) mg/dL Calcium 8.9 (8.4-10.2) mg/dL Urine Color Yellow Urine Appearance Clear (Clear) Urine pH 6.5 (5.0-8.0) Ur Specific [place] 1.030 (1.001-1.035) Urine Protein Negative (Negative) Urine Glucose (UA) Negative (Negative) Urine Ketones Negative (Negative) Urine Blood Negative (Negative) Urine Nitrite Negative (Negative) Urine Bilirubin Negative (Negative) Urine Urobilinogen <2.0 (<2.0) mg/dL Ur Leukocyte Esterase Negative (Negative) Disposition Clinical Impression: Headache Disposition: HOME SELF-CARE Condition: Good Instructions (If sedation given, give patient instructions): Acute Headache (ED) Additional Instructions: Return to emergency room if any new or concerning symptoms. Follow-up with neurology as recommended. Keep your appointment with your dentist for the dental caries tomorrow. Is patient prescribed a controlled substance at d/c from ED?: No Referrals: Leandro Mendoza DO [Primary Care Provider] - 1-2 days Scotty Goldstein MD [Medical Doctor] - 1-2 days Time of Disposition: 23:24
[2021-07-11 20:50] LABS: Basophils # (A) 0.1 k/uL (0-0.2); Basophils % (A) 1 %; Eosinophils # (A) 0.1 k/uL (0-0.7); Eosinophils % (A) 1 %; HCT 41.8 % (34.0-46.0); HGB 13.1 gm/dL (11.4-16.0); Lymphocytes # (A) 4.1 k/uL (1.0-4.8); Lymphocytes % (A) 34 %; MCH 28.7 pg (25.0-35.0); MCHC 31.4 g/dL (31.0-37.0); MCV 91.4 fL (80.0-100.0); Mean Platelet Volume 7.5; Monocytes # (A) 0.4 k/uL (0-1.0); Monocytes % (A) 3 %; Neutrophils # (A) 7.1 k/uL (1.3-7.7); Neutrophils % (A) 59 %; Platelet Count 287 k/uL (150-450); RBC 4.57 m/uL (3.80-5.40); RDW 15.5 % (11.5-15.5)
[2021-07-11 21:00] LABS: Calcium 8.9 mg/dL (8.4-10.2); Potassium 4.2 mmol/L (3.5-5.1)
[2021-07-11] MEDS ORDERED: diphenhydrAMINE 50 MG/ML 1 ML VIAL IVP STA (21:16)
[2021-07-11 21:50] LABS: Appearance,Urine Clear (Clear); Bilirubin,Urine Negative (Negative); Blood,Urine Negative (Negative); Color,Urine Yellow; Glucose,Urine (UA) Negative (Negative); Ketones,Urine Negative (Negative); Leukocyte Esterase,Urine Negative (Negative); Nitrite,Urine Negative (Negative); PH, Urine 6.5 (5.0-8.0); Protein,Urine Negative (Negative); Urobilinogen,Urine <2.0 mg/dL (<2.0)
--- NOTE | 2021-07-11 22:04 | CT ---
EXAMINATION TYPE: CT brain wo con DATE OF EXAM: 07/11/2021 COMPARISON: 05/16/2020 HISTORY: HEADACHE CT DLP: 1086.4 mGycm Automated exposure control for dose reduction was used. Ventricles have normal size. There is no mass effect or midline shift. There is no sign of intracrani al hemorrhage. There is 2 cm area of poorly marginated hypodensity in the anterior right internal cap bird. The calvarium is intact. Skull base is intact. 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 No acute intracranial abnormality .
[2021-07-11] MEDS ORDERED: HYDROmorphone 0.5 MG/0.5 ML SYRINGE IVP STA (22:16)
--- NOTE | 2021-07-11 23:06 | CT ---
EXAMINATION TYPE: CT angio head DATE OF EXAM: 07/11/2021 COMPARISON: None HISTORY: pain CT DLP: 1218.6 mGycm Automated exposure control for dose reduction was used. CONTRAST: Performed with IV Contrast, patient injected with 65 mL of Isovue 370. Images obtained from the skull base to the vertex of the brain with IV contrast. There are Three-D po stprocessed images. There is arterial flow in both distal internal carotid arteries. There is arterial flow in the anteri or middle and posterior cerebral arteries. There is no mass effect. I see no evidence of intracranial aneurysm or neovascularity. There is normal contrast opacification of the venous sinuses. There is n o mass effect. There is no evidence of intracranial arterial stenosis. IMPRESSION: Negative CT angiogram of the brain.
[2021-07-11 23:36] VITALS: BP 152/79; PULSE 65
== END 2021-07-11 23:36 | disposition home or self-care (01) ==
LOC: EC 17:06
DX: R51.9 Headache, unspecified (principal); F17.200 Nicotine dependence, unspecified, uncomplicated; Z88.2 Allergy status to sulfonamides
CPT/HCPCS: 36415; 80048; 85025; 81003; 70496; 70450; 99284; 96374; 96375; J2270; J1200; J1170; Q9967

== ENCOUNTER 2021-11-02 10:21 | Emergency (ER) | payer OTHER ==
[2021-11-02 11:36] VITALS: BP 148/95; PULSE 82; RESP 18; TEMP 97.9
[2021-11-02] MEDS ORDERED: METOCLOPRAMIDE 5 MG/ML 2 ML VIAL IVP STA (13:56)
[2021-11-02] MEDS ORDERED: DEXAMETHASONE SOD PHOSPHATE 10 MG/ML 1 ML VIAL IV STA (13:56)
[2021-11-02] MEDS ORDERED: diphenhydrAMINE 50 MG/ML 1 ML VIAL IVP STA (13:56)
[2021-11-02] MEDS ORDERED: SODIUM CHLORIDE 0.9% 1,000 ML IV STA (13:56)
[2021-11-02] MEDS ORDERED: KETOROLAC 15 MG/ML 1 ML VIAL IVP STA (13:56)
--- NOTE | 2021-11-02 14:53 | ED ---
Headache HPI - General Chief Complaint: Headache Stated Complaint: Headache Time Seen by Provider: 11/02/21 13:49 Mode of arrival: ambulatory Limitations: no limitations - History of Present Illness Initial Comments: Patient is a 45-year-old female presenting with chief complaint of headache. Patient states that she has a history of headaches and this feels consistent with previous headaches. She admits to light sensitivity, nausea, vomiting. States it has been going on for the last 3 days. Not responsive to supportive treatment at home. Patient also states that she has been taking her blood pressure at home and states that it has been elevated. Patient is concerned about these things and wants to "get checked out". Patient is currently on atenolol for a tremor, states that she has been following with her PCP regarding elevated blood pressure. Denies any chest pain, shortness of breath, fever, chills, abdominal pain, hematochezia, melena, dysuria, hematuria, urgency, frequency, back pain, neck pain or stiffness. - Related Data Home Medications Medication Instructions Recorded Confirmed Sertraline HCl [Zoloft] 200 mg PO DAILY 11/16/18 11/02/21 atenoloL [Tenormin] 50 mg PO DAILY 05/30/19 11/02/21 Fluticasone Nasal [place] [Flonase 1 spr EA NOSTRIL DAILY PRN 01/21/20 11/02/21 Nasal [place]] busPIRone HCL [Buspar] 30 mg PO BID PRN 01/21/20 11/02/21 Loratadine 10 mg PO DAILY PRN 05/16/20 11/02/21 buPROPion XL [Wellbutrin XL] 450 mg PO HS 05/16/20 11/02/21 ALPRAZolam [Xanax] 1 mg PO HS PRN 07/20/20 11/02/21 Acetaminophen [Tylenol] 975 mg PO Q4H PRN 11/02/21 11/02/21 Albuterol Sulfate [Proair Hfa] 2 puff INHALATION RT-Q6H PRN 11/02/21 11/02/21 Aspirin EC [Ecotrin Low Dose] 81 mg PO DAILY 11/02/21 11/02/21 Ibuprofen [Motrin] 800 mg PO Q8H PRN 11/02/21 11/02/21 Ondansetron Odt [Zofran Odt] 4 mg PO Q12HR PRN 11/02/21 11/02/21 Allergies Allergy/AdvReac Type Severity Reaction Status Date / Time Sulfa (Sulfonamide Allergy Rash/Hives Verified 11/02/21 14:10 Antibiotics) sulfamethoxazole Allergy Rash/Hives Verified 11/02/21 14:10 [From Bactrim] trimethoprim [From Bactrim] Allergy Rash/Hives Verified 11/02/21 14:10 Review of Systems ROS Statement: Those systems with pertinent positive or pertinent negative responses have been documented in the HPI. ROS Other: All systems not noted in ROS Statement are negative. Past Medical History Past Medical History: Pneumonia, Respiratory Disorder Additional Past Medical History / Comment(s): Polysubstane abuse, history of drug overdose, history of ARDS requiring intubation and mechanical ventilation, history of severe rhabdomyolysis and LUIS MIGUEL (recovered), history of MSSA pneumonia and sepsis, history of metabolic encephalopathy (recovered), hisotory of depre ssion, suicidal thoughts, suicide attempts, obesity. 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 Date of last positivie culture/infection: None MDRO Source:: nare Past Surgical History: No Surgical Hx Reported Additional Past Surgical History / Comment(s): breast biopsy (date unknown), trach placement and peg tube placement for ARDS Past Anesthesia/Blood Transfusion Reactions: No Reported Reaction Past Psychological History: Anxiety, Depression, PTSD Smoking Status: Current every day smoker Past Alcohol Use History: None Reported Past Drug Use History: Marijuana - Past Family History Mother Family Medical History: No Reported History General Exam Limitations: no limitations General appearance: alert, in no apparent distress Head exam: Present: atraumatic, normocephalic, normal inspection Eye exam: Present: normal appearance, PERRL, EOMI. Absent: scleral icterus Neck exam: Present: normal inspection. Absent: tenderness Respiratory exam: Present: normal lung sounds bilaterally. Absent: respiratory distress, wheezes, rales, rhonchi, stridor Cardiovascular Exam: Present: regular rate, normal rhythm, normal heart sounds. Absent: systolic murmur, diastolic murmur, rubs, gallop, clicks GI/Abdominal exam: Present: soft, normal bowel sounds. Absent: distended, tenderness, guarding, rebound, rigid Neurological exam: Present: alert, oriented X3, CN II-XII intact Expanded Patient oriented to: Present: person, place, time Speech: Present: fluid speech Cranial nerves: EOM's Intact: Normal, Tongue Deviation: Normal, Facial Sensati on: Normal Cerebellar function: Heel to Irene: Normal Motor strength exam: RUE: 5, LUE: 5, RLE: 5, LLE: 5 Eye Response: (4) open spontaneously Motor Response: (6) obeys commands Verbal Response: (5) oriented Page Total: 15 Psychiatric exam: Present: normal affect, normal mood Skin exam: Present: warm, dry, intact, normal color. Absent: rash Course Vital Signs 11/02/21 11:31 Temperature 97.9 F Pulse Rate 82 Respiratory 18 Rate Blood Pressure 148/95 O2 Sat by Pulse 97 Oximetry Medical Decision Making - Medical Decision Making Patient is a 45-year-old female presenting with chief complaint of headache. Patient has a history of migraines and states that this episode is consistent with her typical migraine. She admits to nausea, vomiting, and some light sensitivity. Patient also states that her at home blood pressure monitor has been exceptionally high as of the last couple days. Patient has a history of tremor for which she takes atenolol, otherwise no other blood pressure medications being taken. On examination her BP is 148/95, she is neurologically intact, no deficits. Patient was given Toradol, Reglan, Decadron, benadryl, and 1 L of IV fluids. On reassessment patient states that her headache felt about the same. Patient was given 1 mg of Dilaudid, after which she states that her headache was mostly gone. I encouraged the patient to follow up with her PCP and provided her with a referral to neurology, as she states that she gets migraines every couple months. I educated her on supportive treatment with Motrin, Tylenol, caffeine, hydration, placed on the back of the neck. I educated her on return parameters and alarm symptoms. Report back to ER with any worsening symptoms. I answered all questions. Patient conveyed verbal understanding and agreed to the plan. Attending is Dr. Ybarra. Disposition Clinical Impression: Headache Disposition: HOME SELF-CARE Condition: Good Instructions (If sedation given, give patient instructions): Acute Headache (ED) Additional Instructions: Follow-up with PCP and neurology as directed. Take Motrin, Tylenol, stay well- hydrated, and drinking caffeine may help control headache symptoms. Heat or ice to the back of the head may help as well. Report back to ER with any worsening symptoms Is patient prescribed a controlled substance at d/c from ED?: No Referrals: Leandro Mendoza DO [Primary Care Provider] - 1-2 days Tawanda Devine MD [STAFF PHYSICIAN] - 1-2 days Time of Disposition: 15:54
[2021-11-02] MEDS ORDERED: HYDROmorphone 1 MG/ML 1 ML SYRINGE IVP STA (15:10)
== END 2021-11-02 16:11 | disposition home or self-care (01) ==
LOC: EC 10:21
DX: R51.9 Headache, unspecified (principal); F17.200 Nicotine dependence, unspecified, uncomplicated; Z88.2 Allergy status to sulfonamides; Z88.1 Allergy status to other antibiotic agents
CPT/HCPCS: 99283; 96374; 96375; 96361; J1200; J1100; J2765; J1170; J1885

== ENCOUNTER → 2022-10-16 | Outpatient (CLI) | payer OTHER ==
[2022-10-16 16:02] VITALS: BP 154/106; PULSE 48; RESP 16; TEMP 99.1; BMI 35.4
--- NOTE | 2022-10-16 16:37 | P.HPBAR ---
Bariatric H&P - History & Physicial H&P Date: 10/16/22 History & Physicial: Visit/CC: Initial Visit Patient initial contact: Initial weight: 101.151 kg Initial weight in pounds: 223.00 Height: 5 ft 6.5 in Initial BMI: 35.4 Last weight: Current weight: 101.151 kg Current weight in pounds: 223.00 Current BMI: 35.4 [place] body weight (based on NIH guidelines): 60.101 kg Excess body weight loss: 0.0% The patient is a 46 year-old F who presents for Bariatric Assessment. Patient here to discuss possible sleeve gastrectomy. We might today 35.5. Patient is known to our service from previous tracheostomy and PEG tube placement in 2019. This was performed because of ARDS related to drug overdose. Patient's smoking still at this time. She is a very poor historian and states she does not know much of her past history. She apparently sees a clinical nurse occupational medicine as well as her primary care physician. She believes she sees a information architect for CHF. Denies history of diabetes, hypertension, hypercholesterolemia. Mild GERD symptoms at times. No ongoing drug use issues. Review of Systems The patient denies any acute changes in vision or hearing, no dysphagia or odynophagia, no chest pain or shortness of breath, no dysuria or hematuria, no headache, no runny nose, no rectal bleeding or melena, no unexplained weight loss Past Medical History Past Medical History: Pneumonia, Respiratory Disorder Additional Past Medical History / Comment(s): Polysubstane abuse, history of drug overdose, history of ARDS requiring intubation and mechanical ventilation, history of severe rhabdomyolysis and LUIS MIGUEL (recovered), history of MSSA pneumonia and sepsis, history of metabolic encephalopathy (recovered), hisotory of depression, suicidal thoughts, suicide attempts, obesity. 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 Year Discovered:: None MDRO Source:: nare Past Surgical History: No Surgical Hx Reported Additional Past Surgical History / Comment(s): breast biopsy (date unknown), trach placement and peg tube placement for ARDS Past Anesthesia/Blood Transfusion Reactions: No Reported Reaction Smoking Status: Current every day smoker - Past Family History Mother Family Medical History: No Reported History Surgical - Exam Vital Signs Temp Pulse Resp BP 99.1 F 48 L 16 154/106 10/16/22 15:59 04/25/23 15:59 10/16/22 15:59 10/16/22 15:59 Physical exam: General: Well-developed, well-nourished HEENT: Normocephalic, sclerae nonicteric Abdomen: Nontender, nondistended Extremities: No edema Neuro: Alert and oriented, patient appears anxious and somewhat shaky, tobacco odor present Bariatric Assessment & Plan (1) Obesity Narrative/Plan: 46 row female with history of obesity. Patient borderline for bariatric surgery in terms of her BMI level. Patient is a very poor historian. We discussed surgical weight loss options in detail. Both risks, benefits, and expected weight loss with sleeve gastrectomy, gastric bypass reviewed in detail. Patient states she remains interested in sleeve gastrectomy at this time. Patient will require significant preoperative evaluation. Anticipate psychiatric evaluation, primary care physician support, pulmonary and cardiac consultation and clearance. Patient informed that she would need to stop completely at this time. She says she will try to do that. Status: Acute Bariatric Checklist Checklist: Plan: Checklist: EGD: 1. Hiatal hernia: 2. H. Pylori: HgbA1c: Vitamin D: Smoking: Current every day smoker Primary care physician referral: none stated Psychiatry clearance: Cardiology clearance: Sleep study: Diet journal: VTE risk score: VTE risk level: Rehab needs at discharge:
== END ==
LOC: BARWHC3 14:34
PROVIDERS: ATTEND Surgery
DX: E66.01 Morbid (severe) obesity due to excess calories (principal); Z98.84 Bariatric surgery status; Z68.35 Body mass index [BMI] 35.0-35.9, adult; Z88.2 Allergy status to sulfonamides; F17.200 Nicotine dependence, unspecified, uncomplicated
CPT/HCPCS: 99211

== ENCOUNTER → 2022-10-16 | Outpatient (CLI) | payer OTHER ==
[2022-10-17 02:07] LABS: HCT 42.9 % (37.2-46.3); MCH 30.5 pg (27.0-32.0); MCHC 32.6 g/dL (32.0-37.0); MCV 93.5 fL (80.0-97.0); NRBC Per 100 WBC 0 /100 WBCS (0.0-0.0); Platelet Count 342 X 10*3/uL (140-440); RBC 4.59 X 10*6/uL (4.10-5.20); RDW 14.9 % (11.5-14.5); WBC 12.98 X 10*3/uL (4.50-10.00)
[2022-10-17 02:10] LABS: % Iron Saturation 6.88 (12.00-45.00); ALT 15 U/L (8-44); AST 16 U/L (13-35); African American GFR (CKD) 54.9 (60.0-200.0); Albumin 4.5 g/dL (3.8-4.9); Albumin/Globulin Ratio 1.86 (1.60-3.17); Alkaline Phosphatase 80 U/L (41-126); BUN/Creat Ratio 17.54 Ratio (12.00-20.00); Blood Urea Nitrogen 23.5 mg/dL (9.0-27.0); Calcium 9.5 mg/dL (8.7-10.3); Carbon Dioxide 17.5 mmol/L (20.0-27.5); Chloride 112 mmol/L (96-109); Globulin 2.4 g/dL (1.6-3.3); Glucose 102 mg/dL (70-110); Iron 36 ug/dL (50-170); Non-African American GFR(CKD) 47.4 (60.0-200.0); Potassium 3.7 mmol/L (3.5-5.5); Sodium 144 mmol/L (135-145); Total Bilirubin <0.15 mg/dL (0.30-1.20); Total Iron Binding Capacity 526 ug/dL (228-460); Total Protein 6.9 g/dL (6.2-8.2)
== END | disposition home or self-care (01) ==
LOC: LABWHC1 16:07
PROVIDERS: ATTEND Surgery
DX: E66.01 Morbid (severe) obesity due to excess calories (principal); E55.9 Vitamin D deficiency, unspecified; Z71.51 Drug abuse counseling and surveillance of drug abuser; I42.2 Other hypertrophic cardiomyopathy; R94.31 Abnormal electrocardiogram [ECG] [EKG]
CPT/HCPCS: 84425; 80053; 82607; 82746; 83540; 83550; 85027; 82306; 80307; 93005; 36415; G0482

== ENCOUNTER 2022-12-05 00:49 | Emergency (ER) | payer OTHER ==
[2022-12-05 01:00] VITALS: TEMP 97.9
[2022-12-05] MEDS ORDERED: KETOROLAC 15 MG/ML 1 ML VIAL IM STA (01:07)
[2022-12-05] MEDS ORDERED: KETOROLAC 15 MG/ML 1 ML VIAL IVP STA (01:16)
[2022-12-05] MEDS ORDERED: METOCLOPRAMIDE 5 MG/ML 2 ML VIAL IVP STA (01:16)
[2022-12-05] MEDS ORDERED: SODIUM CHLORIDE 0.9% 1,000 ML IV STA (01:16)
--- NOTE | 2022-12-05 01:33 | ED ---
ENT HPI - General Chief complaint: Dental/Oral Stated complaint: migraine and abcessed tooth Time Seen by Provider: 12/05/22 01:03 Source: patient Mode of arrival: ambulatory Limitations: no limitations - History of Present Illness Initial comments: 47-year-old female presenting with chief complaint of dental pain. Pain is located primarily on the right lower side. Patient does follow with a dentist and is trying to get in with them. Patient states that she feels as though this pain is causing her headache and elevated blood pressure. No chest pain, difficulty breathing, palpitations, vision or hearing changes, numbness, tingling, weakness, difficulty swallowing. - Related Data Home Medications Medication Instructions Recorded Confirmed Sertraline HCl [Zoloft] 200 mg PO DAILY 11/16/18 10/17/22 atenoloL [Tenormin] 50 mg PO DAILY 05/30/19 10/17/22 Fluticasone Nasal [place] [Flonase 1 spr EA NOSTRIL DAILY PRN 01/21/20 10/17/22 Nasal [place]] busPIRone HCL [Buspar] 30 mg PO BID PRN 01/21/20 10/17/22 Loratadine 10 mg PO DAILY PRN 05/16/20 10/17/22 buPROPion XL [Wellbutrin XL] 450 mg PO HS 05/16/20 10/17/22 ALPRAZolam [Xanax] 1 mg PO HS PRN 07/20/20 10/17/22 Acetaminophen [Tylenol] 975 mg PO Q4H PRN 11/02/21 10/17/22 Albuterol Sulfate [Proair Hfa] 2 puff INHALATION RT-Q6H PRN 11/02/21 10/17/22 Aspirin EC [Ecotrin Low Dose] 81 mg PO DAILY 11/02/21 10/17/22 Ibuprofen [Motrin] 800 mg PO Q8H PRN 11/02/21 10/17/22 Ondansetron Odt [Zofran Odt] 4 mg PO Q12HR PRN 11/02/21 10/17/22 Previous Rx's Medication Instructions Recorded Amoxic-Pot Clav 875-125Mg 1 tab PO Q12HR 7 Days #14 tab 12/05/22 [Augmentin 875-125] Allergies Allergy/AdvReac Type Severity Reaction Status Date / Time Sulfa (Sulfonamide Allergy Rash/Hives Verified 12/05/22 01:00 Antibiotics) sulfamethoxazole Allergy Rash/Hives Verified 12/05/22 01:00 [From Bactrim] trimethoprim [From Bactrim] Allergy Rash/Hives Verified 12/05/22 01:00 Review of Systems ROS Statement: Those systems with pertinent positive or pertinent negative responses have been documented in the HPI. ROS Other: All systems not noted in ROS Statement are negative. Past Medical History Past Medical History: Pneumonia, Respiratory Disorder Additional Past Medical History / Comment(s): Polysubstane abuse, history of d rug overdose, history of ARDS requiring intubation and mechanical ventilation, history of severe rhabdomyolysis and LUIS MIGUEL (recovered), history of MSSA pneumonia and sepsis, history of metabolic encephalopathy (recovered), hisotory of depression, suicidal thoughts, suicide attempts, obesity. 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 Date of last positivie culture/infection: None MDRO Source:: nare Past Surgical History: No Surgical Hx Reported Additional Past Surgical History / Comment(s): breast biopsy (date unknown), trach placement and peg tube placement for ARDS Past Anesthesia/Blood Transfusion Reactions: No Reported Reaction Past Psychological History: Anxiety, Depression, PTSD Smoking Status: Current every day smoker Past Alcohol Use History: None Reported Past Drug Use History: None Reported - Past Family History Mother Family Medical History: No Reported History General Exam Limitations: no limitations General appearance: alert, in no apparent distress Head exam: Present: atraumatic, normocephalic, normal inspection Eye exam: Present: normal appearance, EOMI. Absent: scleral icterus, periorbital swelling Expanded Mouth exam: Present: normal external inspection Teeth exam: Present: dental caries, fractured tooth #, dental tenderness # Throat exam: normal inspection Neck exam: Present: normal inspection, full ROM Respiratory exam: Present: normal lung sounds bilaterally. Absent: respiratory distress, wheezes, rales, rhonchi, stridor Cardiovascular Exam: Present: regular rate, normal rhythm, normal heart sounds. Absent: systolic murmur, diastolic murmur, rubs, gallop, clicks Neurological exam: Present: alert, oriented X3, CN II-XII intact Psychiatric exam: Present: normal affect, normal mood Skin exam: Present: warm, dry, intact, normal color. Absent: rash Course Vital Signs 12/05/22 12/05/22 00:58 02:16 Temperature 97.9 F Pulse Rate 72 66 Respiratory 18 16 Rate Blood Pressure 186/107 200/113 O2 Sat by Pulse 97 99 Oximetry Medical Decision Making - Medical Decision Making Was pt. sent in by a medical professional or institution (MAGY Sheppard, ELECTRICAL ENGINEERING TECHNOLOGIST, urgent care, hospital, or prison...) When possible be specific @ -No Did you speak to anyone other than the patient for history (EMS, parent, family, police, friend...)? What history was obtained from this source @ -No Did you review nursing and triage notes (agree or disagree)? Why? @ -I reviewed and agree with nursing and triage notes Were old charts reviewed (outside hosp., previous admission, EMS record, old EKG, old radiological studies, urgent care reports/EKG's, prison records)? Report findings @ -No old charts were reviewed Differential Diagnosis (chest pain, altered mental status, abdominal pain women, abdominal pain men, vaginal bleeding, weakness, fever, dyspnea, syncope, headache, dizziness, GI bleed, back pain, seizure, CVA, palpatations, mental health, musculoskeletal)? @ -Differential includes dental pain, dental abscess, Reece's angina, this is not an all inclusive list EKG interpreted by me (3pts min.). @ -As above X-rays interpreted by me (1pt min.). @ -None done CT interpreted by me (1pt min.). @ -None done U/S interpreted by me (1pt. min.). @ -None done What testing was considered but not performed or refused? (CT, X-rays, U/S, labs)? Why? @ -None What meds were considered but not given or refused? Why? @ -None Did you discuss the management of the patient with other professionals (professionals i.e. MAGY Sheppard, ELECTRICAL ENGINEERING TECHNOLOGIST, lab, RT, psych nurse, medical social worker, coin purse framer, teacher, tactical/mobile watch officer, piano case and bench assembler)? Give summary @ -No Was smoking cessation discussed for >3mins.? @ -No Was critical care preformed (if so, how long)? @ -No Were there social determinants of health that impacted care today? How? (Homelessness, low income, unemployed, alcoholism, drug addiction, transportation, low edu. Level, literacy, decrease access to med. care, group home, rehab)? @ -No Was there de-escalation of care discussed even if they declined (Discuss DNR or withdrawal of care, Hospice)? DNR status @ -No What co-morbidities impacted this encounter? (DM, HTN, Smoking, COPD, CAD, Cancer, CVA, ARF, Chemo, Hep., AIDS, mental health diagnosis, sleep apnea, morbid obesity)? @ -None Was patient admitted / discharged? Hospital course, mention meds given and route, prescriptions, significant lab abnormalities, going to OR and other pertinent info. @ -47-year-old female presenting with chief complaint of dental pain. On physical examination there is tenderness to the right lower side. No brawny induration. No difficulty breathing or swallowing. Normal posterior pharynx. Patient is given pain medication. Patient is hypertensive on presentation, she is given one dose of hydralazine. She will be treated for abscess with Augmentin. Instructed to follow up with dentist regarding dental pain and PCP regarding hypertension. Follow-up with PCP. Report back to ER with any new or w orsening symptoms. Discussed return parameters and answered all questions. Patient conveyed verbal understanding and agreed to the plan. I discussed this case in detail with my attending Dr. Pierce Undiagnosed new problem with uncertain prognosis? @ -No Drug Therapy requiring intensive monitoring for toxicity (Heparin, Nitro, Insulin, Cardizem)? @ -No Were any procedures done? @ -No Diagnosis/symptom? @ -Dental abscess Acute, or Chronic, or Acute on Chronic? @ -Acute Uncomplicated (without systemic symptoms) or Complicated (systemic symptoms)? @ -Uncomplicated Side effects of treatment? @ -No Exacerbation, Progression, or Severe Exacerbation? @ -No Poses a threat to life or bodily function? How? (Chest pain, USA, OR, pneumonia, PE, COPD, DKA, ARF, appy, cholecystitis, CVA, Diverticulitis, Homicidal, Suicidal, threat to staff... and all critical care pts) @ -No Diagnosis/symptom? @Hypertension Acute, or Chronic, or Acute on Chronic? @Acute on chronic Uncomplicated (without systemic symptoms) or Complicated (systemic symptoms)? @Uncomplicated Side effects of treatment? @ none Exacerbation, Progression, or Severe Exacerbation] @ no Poses a threat to life or bodily function? @Yes if left untreated Disposition Clinical Impression: Dental abscess Disposition: HOME SELF-CARE Condition: Good Instructions (If sedation given, give patient instructions): Dental Abscess (ED) Additional Instructions: Follow up with dentist and PCP. Report back to ER with any new or worsening symptoms. Take medication as prescribed. Prescriptions: Amoxic-Pot Clav 875-125Mg [Augmentin 875-125] 1 tab PO Q12HR 7 Days #14 tab Is patient prescribed a controlled substance at d/c from ED?: No Referrals: Leandro Mendoza DO [Primary Care Provider] - 1-2 days Time of Disposition: 02:54
[2022-12-05 02:17] VITALS: RESP 16
[2022-12-05] MEDS ORDERED: hydrALAZINE HCL 20 MG/ML 1 ML VIAL IVP STA (02:24)
[2022-12-05] MEDS ORDERED: Acetaminophen-Codeine 300-30mg TAB PO STA (02:24)
[2022-12-05] MEDS ORDERED: ACET/COD 300 MG/30 MG STARTER PACK 6 TAB BTL PO STA (02:54)
[2022-12-05 05:02] VITALS: BP 172/103; PULSE 65
== END 2022-12-05 03:10 | disposition home or self-care (01) ==
LOC: EC 00:49
DX: K04.7 Periapical abscess without sinus (principal); F41.9 Anxiety disorder, unspecified; F32.A Depression, unspecified; F17.200 Nicotine dependence, unspecified, uncomplicated; Z79.899 Other long term (current) drug therapy; Z88.1 Allergy status to other antibiotic agents; Z88.2 Allergy status to sulfonamides
CPT/HCPCS: 99282; 96374; 96375 ×2; 96361; J0360; J2765; J1885

== ENCOUNTER 2023-02-14 15:32 | Emergency (ER) | payer OTHER ==
[2023-02-14 15:43] VITALS: BP 118/72; PULSE 59; RESP 20; TEMP 98.3
--- NOTE | 2023-02-14 15:49 | ED ---
Altered Mental Status HPI - General Chief Complaint: Altered Mental Status Stated Complaint: AMS Time Seen by Provider: 02/14/23 15:40 Source: patient, RN notes reviewed Mode of arrival: ambulatory Limitations: no limitations - History of Present Illness Initial Comments: This is a 47 year old female who presents to the emergency department for confusion and dizziness. States that this started today. She is currently A&O x4. Her mother states that she keeps saying "help me". Denies any chest pain or shortness of breath. MD Complaint: confusion - Related Data Home Medications Medication Instructions Recorded Confirmed Sertraline HCl [Zoloft] 200 mg PO DAILY 11/16/18 10/17/22 atenoloL [Tenormin] 50 mg PO DAILY 05/30/19 10/17/22 Fluticasone Nasal [place] [Flonase 1 spr EA NOSTRIL DAILY PRN 01/21/20 10/17/22 Nasal [place]] busPIRone HCL [Buspar] 30 mg PO BID PRN 01/21/20 10/17/22 Loratadine 10 mg PO DAILY PRN 05/16/20 10/17/22 buPROPion XL [Wellbutrin XL] 450 mg PO HS 05/16/20 10/17/22 ALPRAZolam [Xanax] 1 mg PO HS PRN 07/20/20 10/17/22 Acetaminophen [Tylenol] 975 mg PO Q4H PRN 11/02/21 10/17/22 Albuterol Sulfate [Proair Hfa] 2 puff INHALATION RT-Q6H PRN 11/02/21 10/17/22 Aspirin EC [Ecotrin Low Dose] 81 mg PO DAILY 11/02/21 10/17/22 Ibuprofen [Motrin] 800 mg PO Q8H PRN 11/02/21 10/17/22 Ondansetron Odt [Zofran Odt] 4 mg PO Q12HR PRN 11/02/21 10/17/22 Previous Rx's Medication Instructions Recorded Amoxic-Pot Clav 875-125Mg 1 tab PO Q12HR 7 Days #14 tab 12/05/22 [Augmentin 875-125] Allergies Allergy/AdvReac Type Severity Reaction Status Date / Time Sulfa (Sulfonamide Allergy Rash/Hives Verified 02/14/23 15:43 Antibiotics) sulfamethoxazole Allergy Rash/Hives Verified 02/14/23 15:43 [From Bactrim] trimethoprim [From Bactrim] Allergy Rash/Hives Verified 02/14/23 15:43 Review of Systems ROS Statement: Those systems with pertinent positive or pertinent negative responses have been documented in the HPI. ROS Other: All systems not noted in ROS Statement are negative. Past Medical History Past Medical History: Pneumonia, Respiratory Disorder Additional Past Medical History / Comment(s): Polysubstane abuse, history of dr ug overdose, history of ARDS requiring intubation and mechanical ventilation, history of severe rhabdomyolysis and LUIS MIGUEL (recovered), history of MSSA pneumonia and sepsis, history of metabolic encephalopathy (recovered), hisotory of depression, suicidal thoughts, suicide attempts, obesity. 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 Date of last positivie culture/infection: None MDRO Source:: nare Past Surgical History: No Surgical Hx Reported Additional Past Surgical History / Comment(s): breast biopsy (date unknown), trach placement and peg tube placement for ARDS Past Anesthesia/Blood Transfusion Reactions: No Reported Reaction Past Psychological History: Anxiety, Depression, PTSD Smoking Status: Current every day smoker Past Alcohol Use History: None Reported Past Drug Use History: None Reported - Past Family History Mother Family Medical History: No Reported History General Exam - General Exam Comments Initial Comments: Visual Physical Exam Vital signs reviewed General: Well-appearing, nontoxic, no acute distress. Head: Normocephalic, atraumatic Eyes: PERRLA, EOMI ENT: Airway patent Chest: Nonlabored breathing Skin: No visual rash, normal skin tone Neuro: Alert and oriented 3 Musculoskeletal: No gross abnormalities I performed the QuickNote portion of this chart. Signed Anjana Davis PA-C. Course Vital Signs 02/14/23 15:38 Temperature 98.3 F Pulse Rate 59 L Respiratory 20 Rate Blood Pressure 118/72 O2 Sat by Pulse 99 Oximetry Medical Decision Making - Medical Decision Making Patient eloped from the emergency department prior to completion and review of the ordered testing. - Lab Data Result diagrams: 02/14/23 16:24 02/14/23 16:24 Lab Results 02/14/23 02/14/23 02/14/23 Range/Units 16:24 16:24 16:24 WBC 16.8 H (3.8-10.6) k/uL RBC 4.45 (3.80-5.40) m/uL Hgb 14.1 (11.4-16.0) gm/dL Hct 41.1 (34.0-46.0) % MCV 92.3 (80.0-100.0) fL MCH 31.7 (25.0-35.0) pg MCHC 34.4 (31.0-37.0) g/dL RDW 14.4 (11.5-15.5) % Plt Count 358 (150-450) k/uL MPV 8.2 Neutrophils % 66 % Lymphocytes % 27 % Monocytes % 4 % Eosinophils % 2 % Basophils % 0 % Neutrophils # 11.0 H (1.3-7.7) k/uL Lymphocytes # 4.5 (1.0-4.8) k/uL Monocytes # 0.7 (0-1.0) k/uL Eosinophils # 0.4 (0-0.7) k/uL Basophils # 0.1 (0-0.2) k/uL PT 9.8 (9.0-12.0) sec INR 0.9 (<1.2) APTT 22.3 (22.0-30.0) sec Sodium 141 (137-145) mmol/L Potassium 3.4 L (3.5-5.1) mmol/L Chloride 109 H (98-107) mmol/L Carbon Dioxide 19 L (22-30) mmol/L Anion Gap 13 mmol/L BUN 44 H (7-17) mg/dL Creatinine 3.12 H (0.52-1.04) mg/dL Est GFR (CKD-EPI)AfAm 20 (>60 ml/min/1.73 sqM) Est GFR (CKD-EPI)NonAf 17 (>60 ml/min/1.73 sqM) Glucose 102 H (74-99) mg/dL Calcium 9.6 (8.4-10.2) mg/dL Total Bilirubin 0.4 (0.2-1.3) mg/dL AST 23 (14-36) U/L ALT 23 (4-34) U/L Alkaline Phosphatase 77 (38-126) U/L Troponin I (0.000-0.034) ng/mL Total Protein 7.3 (6.3-8.2) g/dL Albumin 4.2 (3.5-5.0) g/dL Urine HCG, Qual (Not Detectd) Urine Opiates Screen (NotDetected) Ur Oxycodone Screen (NotDetected) Urine Methadone Screen (NotDetected) Ur Propoxyphene Screen (NotDetected) Ur Barbiturates Screen (NotDetected) U Tricyclic Antidepress (NotDetected) Ur Phencyclidine Scrn (NotDetected) Ur Amphetamines Screen (NotDetected) U Methamphetamines Scrn (NotDetected) U Benzodiazepines Scrn (NotDetected) Urine Cocaine Screen (NotDetected) U Marijuana (THC) Screen (NotDetected) 02/14/23 02/14/23 02/14/23 Range/Units 16:24 16:39 16:39 WBC (3.8-10.6) k/uL RBC (3.80-5.40) m/uL Hgb (11.4-16.0) gm/dL Hct (34.0-46.0) % MCV (80.0-100.0) fL MCH (25.0-35.0) pg MCHC (31.0-37.0) g/dL RDW (11.5-15.5) % Plt Count (150-450) k/uL MPV Neutrophils % % Lymphocytes % % Monocytes % % Eosinophils % % Basophils % % Neutrophils # (1.3-7.7) k/uL Lymphocytes # (1.0-4.8) k/uL Monocytes # (0-1.0) k/uL Eosinophils # (0-0.7) k/uL Basophils # (0-0.2) k/uL PT (9.0-12.0) sec INR (<1.2) APTT (22.0-30.0) sec Sodium (137-145) mmol/L Potassium (3.5-5.1) mmol/L Chloride (98-107) mmol/L Carbon Dioxide (22-30) mmol/L Anion Gap mmol/L BUN (7-17) mg/dL Creatinine (0.52-1.04) mg/dL Est GFR (CKD-EPI)AfAm (>60 ml/min/1.73 sqM) Est GFR (CKD-EPI)NonAf (>60 ml/min/1.73 sqM) Glucose (74-99) mg/dL Calcium (8.4-10.2) mg/dL Total Bilirubin (0.2-1.3) mg/dL AST (14-36) U/L ALT (4-34) U/L Alkaline Phosphatase (38-126) U/L Troponin I <0.012 (0.000-0.034) ng/mL Total Protein (6.3-8.2) g/dL Albumin (3.5-5.0) g/dL Urine HCG, Qual Not Detected (Not Detectd) Urine Opiates Screen Not Detected (NotDetected) Ur Oxycodone Screen Not Detected (NotDetected) Urine Methadone Screen Not Detected (NotDetected) Ur Propoxyphene Screen Not Detected (NotDetected) Ur Barbiturates Screen Not Detected (NotDetected) U Tricyclic Antidepress Not Detected (NotDetected) Ur Phencyclidine Scrn Not Detected (NotDetected) Ur Amphetamines Screen Not Detected (NotDetected) U Methamphetamines Scrn Not Detected (NotDetected) U Benzodiazepines Scrn Not Detected (NotDetected) Urine Cocaine Screen Not Detected (NotDetected) U Marijuana (THC) Screen Detected H (NotDetected) Disposition Clinical Impression: Dizziness, Confusion Disposition: LEFT AGAINST MEDICAL ADVICE Referrals: Leandro Mendoza DO [Primary Care Provider] - 1-2 days
[2023-02-14 16:50] LABS: Basophils # (A) 0.1 k/uL (0-0.2); Basophils % (A) 0 %; Eosinophils # (A) 0.4 k/uL (0-0.7); Eosinophils % (A) 2 %; HCT 41.1 % (34.0-46.0); HGB 14.1 gm/dL (11.4-16.0); Lymphocytes # (A) 4.5 k/uL (1.0-4.8); Lymphocytes % (A) 27 %; MCH 31.7 pg (25.0-35.0); MCHC 34.4 g/dL (31.0-37.0); MCV 92.3 fL (80.0-100.0); Mean Platelet Volume 8.2; Monocytes # (A) 0.7 k/uL (0-1.0); Monocytes % (A) 4 %; Neutrophils % (A) 66 %; Platelet Count 358 k/uL (150-450); RBC 4.45 m/uL (3.80-5.40); RDW 14.4 % (11.5-15.5); WBC 16.8 k/uL (3.8-10.6)
[2023-02-14 16:58] LABS: ALT 23 U/L (4-34); AST 23 U/L (14-36); African American GFR (CKD) 20 (>60 ml/min/1.73 sqM); Albumin 4.2 g/dL (3.5-5.0); Alkaline Phosphatase 77 U/L (38-126); Anion Gap 13 mmol/L; Blood Urea Nitrogen 44 mg/dL (7-17); Calcium 9.6 mg/dL (8.4-10.2); Carbon Dioxide 19 mmol/L (22-30); Chloride 109 mmol/L (98-107); Glucose 102 mg/dL (74-99); Non-African American GFR(CKD) 17 (>60 ml/min/1.73 sqM); Potassium 3.4 mmol/L (3.5-5.1); Sodium 141 mmol/L (137-145); Total Bilirubin 0.4 mg/dL (0.2-1.3); Total Protein 7.3 g/dL (6.3-8.2)
[2023-02-14 17:09] LABS: Urn Cannabinoid Scrn Detected (NotDetected)
[2023-02-14 17:10] LABS: Amphetamine Screen,Urine Not Detected (NotDetected); Barbiturate Screen,Urine Not Detected (NotDetected); Benzodiazepines Screen,Urine Not Detected (NotDetected); Cocaine Screen,Urine Not Detected (NotDetected); Methadone Screen, Urine Not Detected (NotDetected); Opiate Screen,Urine Not Detected (NotDetected); Oxycodone Screen, Urine Not Detected (NotDetected); Phencyclidine Screen,Urine Not Detected (NotDetected); Tricyclic Antidepressant,Urine Not Detected (NotDetected)
[2023-02-14 17:14] LABS: INR 0.9 (<1.2); Partial Thromboplastin Time 22.3 sec (22.0-30.0); Prothrombin Time 9.8 sec (9.0-12.0)
== END 2023-02-14 17:35 | disposition left against medical advice (07) ==
LOC: EC 15:32
DX: R42 Dizziness and giddiness (principal); R41.0 Disorientation, unspecified; F41.9 Anxiety disorder, unspecified; F32.A Depression, unspecified; F17.200 Nicotine dependence, unspecified, uncomplicated; Z79.82 Long term (current) use of aspirin; Z79.899 Other long term (current) drug therapy; Z88.1 Allergy status to other antibiotic agents; Z88.2 Allergy status to sulfonamides
CPT/HCPCS: 36415; 80053; 80306; 81025; 84484; 85025; 85610; 85730; 99284

== ENCOUNTER 2023-06-03 09:45 | Inpatient (IN) | payer OTHER ==
[2023-06-03] MEDS ORDERED: ONDANSETRON 4 MG/2 ML VIAL IVP STA (10:23)
[2023-06-03] MEDS ORDERED: SODIUM CHLORIDE 0.9% 1,000 ML IV STA (10:23)
[2023-06-03] MEDS ORDERED: KETOROLAC 15 MG/ML 1 ML VIAL IVP STA (10:23)
--- NOTE | 2023-06-03 10:28 | ED ---
General Adult HPI - General Chief complaint: Abdominal Pain Stated complaint: Abd Pain Time Seen by Provider: 06/03/23 10:05 Source: patient, EMS, RN notes reviewed Mode of arrival: EMS Limitations: no limitations - History of Present Illness Initial comments: 47-year-old female presents to the emergency department chief complaint of abdominal pain 2-3 days. She states that the pain is constant. States that she is attempted Tylenol and Motrin which has not helped. Denies radiation. She does state that she has had vomiting but this is not new for her. Last episode of vomiting was last night. She reports normal bowel movements. She admits to generalized weakness. She states that she feels like she can't sit up in bed or stand because she is so weak. Patient ambulated from ambulance stretcher to ED bed. Denies fever, chills, shortness of breath. Denies hematuria, dysuria. Patient is requesting Dilaudid for pain. - Related Data Home Medications Medication Instructions Recorded Confirmed Sertraline HCl [Zoloft] 200 mg PO DAILY 11/16/18 06/03/23 busPIRone HCL [Buspar] 30 mg PO BID 01/21/20 06/03/23 buPROPion XL [Wellbutrin XL] 150 mg PO TID 05/16/20 06/03/23 Cholecalciferol [Vitamin D3 (25 150 mcg PO DAILY 06/03/23 06/03/23 Mcg = 1000 Iu)] atenoloL [Tenormin] 100 mg PO DAILY 06/03/23 06/03/23 Allergies Allergy/AdvReac Type Severity Reaction Status Date / Time Sulfa (Sulfonamide Allergy Rash/Hives Verified 06/03/23 10:51 Antibiotics) sulfamethoxazole Allergy Rash/Hives Verified 06/03/23 10:51 [From Bactrim] trimethoprim [From Bactrim] Allergy Rash/Hives Verified 06/03/23 10:51 Review of Systems ROS Statement: Those systems with pertinent positive or pertinent negative responses have been documented in the HPI. ROS Other: All systems not noted in ROS Statement are negative. Past Medical History Past Medical History: Pneumonia, Respiratory Disorder Additional Past Medical History / Comment(s): Polysubstane abuse, history of drug overdose, history of ARDS requiring intubation and mechanical ventilation, history of severe rhabdomyolysis and LUIS MIGUEL (recovered), history of MSSA pneumonia and sepsis, history of metabolic encephalopathy (recovered), hisotory of depression, suicidal thoughts, suicide attempts, obesity. 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 Date of last positivie culture/infection: None MDRO Source:: nare Past Surgical History: No Surgical Hx Reported Additional Past Surgical History / Comment(s): breast biopsy (date unknown), trach placement and peg tube placement for ARDS Past Anesthesia/Blood Transfusion Reactions: No Reported Reaction Past Psychological History: Anxiety, Depression, PTSD Smoking Status: Current every day smoker Past Alcohol Use History: None Reported Past Drug Use History: None Reported - Past Family History Mother Family Medical History: No Reported History General Exam Limitations: no limitations General appearance: alert, in no apparent distress Head exam: Present: atraumatic, normocephalic, normal inspection Eye exam: Present: normal appearance, PERRL, EOMI. Absent: scleral icterus, conjunctival injection, periorbital swelling ENT exam: Present: mucous membranes dry Neck exam: Present: normal inspection. Absent: tenderness, meningismus, lymphadenopathy Respiratory exam: Present: normal lung sounds bilaterally. Absent: respiratory distress, wheezes, rales, rhonchi, stridor Cardiovascular Exam: Present: regular rate, normal rhythm, normal heart sounds. Absent: systolic murmur, diastolic murmur, rubs, gallop, clicks GI/Abdominal exam: Present: soft, tenderness (Diffuse), normal bowel sounds. Absent: distended, guarding, rebound, rigid Back exam: Present: normal inspection. Absent: CVA tenderness (R), CVA tende rness (L) Neurological exam: Present: alert, oriented X3 Psychiatric exam: Present: normal affect, normal mood Skin exam: Present: warm, dry, intact, normal color. Absent: rash Course Vital Signs 06/03/23 06/03/23 06/03/23 09:57 13:21 19:20 Temperature 97 F L Pulse Rate 58 L 58 L 58 L Respiratory 18 18 18 Rate Blood Pressure 124/78 111/67 120/72 O2 Sat by Pulse 95 99 96 Oximetry Medical Decision Making - Medical Decision Making Was pt. sent in by a medical professional or institution (, PA, GEOCHEMIST, urgent care, hospital, or group home...) When possible be specific @ -No Did you speak to anyone other than the patient for history (EMS, parent, family, police, friend...)? What history was obtained from this source @ -No Did you review nursing and triage notes (agree or disagree)? Why? @ -I reviewed and agree with nursing and triage notes Were old charts reviewed (outside hosp., previous admission, EMS record, old EKG, old radiological studies, urgent care reports/EKG's, group home records)? Report findings @ -No old charts were reviewed Differential Diagnosis (chest pain, altered mental status, abdominal pain women, abdominal pain men, vaginal bleeding, weakness, fever, dyspnea, syncope, headache, dizziness, GI bleed, back pain, seizure, CVA, palpatations, mental health, musculoskeletal)? @ -Differential Abdominal Pain Women: Appendicitis, Cholecystitis, diverticulosis, ischemic bowel, pancreatitis, hepatitis, UTI, gastroenteritis, AAA, incarcerated hernia, bowel obstruction, co nstipation, inflammatory bowel, hepatitis, peptic ulcer disease, splenic infarction, perforated viscus, vulvitis, ovarian torsion, PID, kidney stone, placenta abruption, this is not meant to be an all-inclusive list EKG interpreted by me (3pts min.). @ -EKG at 0956 shows sinus rhythm rate 73, MN 185, QRS 101, QTQTc [id number] X-rays interpreted by me (1pt min.). @ -None done CT interpreted by me (1pt min.). @ -CT abdomen and pelvis shows left renal pelvic stone without obstruction U/S interpreted by me (1pt. min.). @ -None done What testing was considered but not performed or refused? (CT, X-rays, U/S, labs)? Why? @ -None What meds were considered but not given or refused? Why? @ -None Did you discuss the management of the patient with other professionals (professionals i.e. , PA, GEOCHEMIST, lab, RT, psych nurse, social services coordinator, screen printing machine operator, teacher, combat systems officer, rn case mgr)? Give summary @ -Management discussed with Dr. Jolly with [facility] hospitalists who is accepting of the admission. Was smoking cessation discussed for >3mins.? @ -No Was critical care preformed (if so, how long)? @ -No Were there social determinants of health that impacted care today? How? (Homelessness, low income, unemployed, alcoholism, drug addiction, transportation, low edu. Level, literacy, decrease access to med. care, long term, rehab)? @ -No Was there de-escalation of care discussed even if they declined (Discuss DNR or withdrawal of care, Hospice)? DNR status @ -No What co-morbidities impacted this encounter? (DM, HTN, Smoking, COPD, CAD, Cancer, CVA, ARF, Chemo, Hep., AIDS, mental health diagnosis, sleep apnea, morbid obesity)? @ -None Was patient admitted / discharged? Hospital course, mention meds given and route, prescriptions, significant lab abnormalities, going to OR and other pertinent info. @ -Admitted. Patient presented to the emergency department for chief complaint of abdominal pain and generalized weakness 4 days. Laboratory studies obtained which showed WBC 12.2, hemoglobin 11.0; CMP shows sodium 143, potassium 1.6, chloride 112, creatinine 1.77, repeat CMP continues to show hypokalemia at 1.5. Patient started on potassium supplementation by mouth and IV. Magnesium 2.6. U A shows 1+ protein, trace blood, negative nitrate, negative leukocyte esterase. CT abdomen and pelvis obtained shows left renal pelvic stone without obstruction, no other acute abnormalities. Patient to remain on ekg monitor. Patient will be admitted for continued potassium supplementation and cardiac telemetry. Case was discussed with [facility], Dr. Jolly who is accepting of the admission. Patient stable at time of admission. Case discussed with Dr. Pederson. Undiagnosed new problem with uncertain prognosis? @ -No Drug Therapy requiring intensive monitoring for toxicity (Heparin, Nitro, Insulin, Cardizem)? @ -No Were any procedures done? @ -No Diagnosis/symptom? @ -hypokalemia, generalized weakness Acute, or Chronic, or Acute on Chronic? @ -acute Uncomplicated (without systemic symptoms) or Complicated (systemic symptoms)? @ -uncomplicated Side effects of treatment? @ -No Exacerbation, Progression, or Severe Exacerbation? @ -No Poses a threat to life or bodily function? How? (Chest pain, USA, VT, pneumonia, PE, COPD, DKA, ARF, appy, cholecystitis, CVA, Diverticulitis, Homicidal, Suicidal, threat to staff... and all critical care pts) @ -No - Lab Data Result diagrams: 06/03/23 11:22 06/03/23 12:47 Lab Results 1206/03/23 06/03/23 Range/Units 11:22 11:22 11:22 WBC 12.2 H (3.8-10.6) k/uL RBC 3.93 (3.80-5.40) m/uL Hgb 11.0 L (11.4-16.0) gm/dL Hct 33.7 L (34.0-46.0) % MCV 85.7 (80.0-100.0) fL MCH 27.9 (25.0-35.0) pg MCHC 32.6 (31.0-37.0) g/dL RDW 16.6 H (11.5-15.5) % Plt Count 537 H (150-450) k/uL MPV 7.9 Neutrophils % 61 % Lymphocytes % 31 % Monocytes % 4 % Eosinophils % 3 % Basophils % 1 % Neutrophils # 7.4 (1.3-7.7) k/uL Lymphocytes # 3.7 (1.0-4.8) k/uL Monocytes # 0.4 (0-1.0) k/uL Eosinophils # 0.4 (0-0.7) k/uL Basophils # 0.1 (0-0.2) k/uL Hypochromasia Slight Poikilocytosis Moderate Anisocytosis Slight Sodium 143 (137-145) mmol/L Potassium 1.6 L* (3.5-5.1) mmol/L Chloride 112 H (98-107) mmol/L Carbon Dioxide 13 L (22-30) mmol/L Anion Gap 18 mmol/L BUN 29 H (7-17) mg/dL Creatinine 1.77 H (0.52-1.04) mg/dL Est GFR (CKD-EPI)AfAm 39 (>60 ml/min/1.73 sqM) Est GFR (CKD-EPI)NonAf 34 (>60 ml/min/1.73 sqM) Glucose 96 (74-99) mg/dL Plasma Lactic Acid Elie 1.0 (0.7-2.0) mmol/L Calcium 10.6 H (8.4-10.2) mg/dL Total Bilirubin 0.4 (0.2-1.3) mg/dL AST 25 (14-36) U/L ALT 17 (4-34) U/L Alkaline Phosphatase 101 (38-126) U/L Total Protein 6.9 (6.3-8.2) g/dL Albumin 3.7 (3.5-5.0) g/dL Amylase 50 (30-110) U/L Lipase 62 (23-300) U/L 06/03/23 Range/Units 12:47 WBC (3.8-10.6) k/uL RBC (3.80-5.40) m/uL Hgb (11.4-16.0) gm/dL Hct (34.0-46.0) % MCV (80.0-100.0) fL MCH (25.0-35.0) pg MCHC (31.0-37.0) g/dL RDW (11.5-15.5) % Plt Count (150-450) k/uL MPV Neutrophils % % Lymphocytes % % Monocytes % % Eosinophils % % Basophils % % Neutrophils # (1.3-7.7) k/uL Lymphocytes # (1.0-4.8) k/uL Monocytes # (0-1.0) k/uL Eosinophils # (0-0.7) k/uL Basophils # (0-0.2) k/uL Hypochromasia Poikilocytosis Anisocytosis Sodium 142 (137-145) mmol/L Potassium 1.5 L* (3.5-5.1) mmol/L Chloride 114 H (98-107) mmol/L Carbon Dioxide 13 L (22-30) mmol/L Anion Gap 15 mmol/L BUN 29 H (7-17) mg/dL Creatinine 1.59 H (0.52-1.04) mg/dL Est GFR (CKD-EPI)AfAm 44 (>60 ml/min/1.73 sqM) Est GFR (CKD-EPI)NonAf 38 (>60 ml/min/1.73 sqM) Glucose 89 (74-99) mg/dL Plasma Lactic Acid Elie (0.7-2.0) mmol/L Calcium 9.8 (8.4-10.2) mg/dL Total Bilirubin 0.3 (0.2-1.3) mg/dL AST 23 (14-36) U/L ALT 15 (4-34) U/L Alkaline Phosphatase 86 (38-126) U/L Total Protein 6.1 L (6.3-8.2) g/dL Albumin 3.3 L (3.5-5.0) g/dL Amylase 43 (30-110) U/L Lipase 59 (23-300) U/L Disposition Clinical Impression: Hypokalemia, Generalized weakness Disposition: ADMITTED IP TO THIS HOSP Condition: Stable Is patient prescribed a controlled substance at d/c from ED?: No
[2023-06-03 11:35] LABS: Anisocytosis Slight; Basophils # (A) 0.1 k/uL (0-0.2); Basophils % (A) 1 %; Eosinophils # (A) 0.4 k/uL (0-0.7); Eosinophils % (A) 3 %; HCT 33.7 % (34.0-46.0); Hypochromasia Slight; Lymphocytes # (A) 3.7 k/uL (1.0-4.8); Lymphocytes % (A) 31 %; MCH 27.9 pg (25.0-35.0); MCHC 32.6 g/dL (31.0-37.0); MCV 85.7 fL (80.0-100.0); Mean Platelet Volume 7.9; Monocytes # (A) 0.4 k/uL (0-1.0); Monocytes % (A) 4 %; Neutrophils # (A) 7.4 k/uL (1.3-7.7); Neutrophils % (A) 61 %; Platelet Count 537 k/uL (150-450); Poikilocytosis Moderate; RBC 3.93 m/uL (3.80-5.40); RDW 16.6 % (11.5-15.5); WBC 12.2 k/uL (3.8-10.6)
[2023-06-03 11:45] LABS: ALT 17 U/L (4-34); AST 25 U/L (14-36); African American GFR (CKD) 39 (>60 ml/min/1.73 sqM); Albumin 3.7 g/dL (3.5-5.0); Alkaline Phosphatase 101 U/L (38-126); Amylase 50 U/L (30-110); Anion Gap 18 mmol/L; Blood Urea Nitrogen 29 mg/dL (7-17); Calcium 10.6 mg/dL (8.4-10.2); Carbon Dioxide 13 mmol/L (22-30); Chloride 112 mmol/L (98-107); Glucose 96 mg/dL (74-99); Lipase 62 U/L (23-300); Non-African American GFR(CKD) 34 (>60 ml/min/1.73 sqM); Sodium 143 mmol/L (137-145); Total Bilirubin 0.4 mg/dL (0.2-1.3); Total Protein 6.9 g/dL (6.3-8.2)
[2023-06-03] MEDS ORDERED: MORPHINE SULFATE 4 MG/ML SYRINGE IVP STA (11:49)
[2023-06-03 11:52] LABS: Potassium 1.6 mmol/L (3.5-5.1)
[2023-06-03] MEDS ORDERED: HYDROmorphone 0.5 MG/0.5 ML SYRINGE IVP STA ×2 (13:13→15:55)
[2023-06-03 13:25] LABS: ALT 15 U/L (4-34); AST 23 U/L (14-36); African American GFR (CKD) 44 (>60 ml/min/1.73 sqM); Albumin 3.3 g/dL (3.5-5.0); Alkaline Phosphatase 86 U/L (38-126); Amylase 43 U/L (30-110); Anion Gap 15 mmol/L; Blood Urea Nitrogen 29 mg/dL (7-17); Calcium 9.8 mg/dL (8.4-10.2); Carbon Dioxide 13 mmol/L (22-30); Chloride 114 mmol/L (98-107); Glucose 89 mg/dL (74-99); Lipase 59 U/L (23-300); Non-African American GFR(CKD) 38 (>60 ml/min/1.73 sqM); Sodium 142 mmol/L (137-145); Total Bilirubin 0.3 mg/dL (0.2-1.3); Total Protein 6.1 g/dL (6.3-8.2)
[2023-06-03 13:33] LABS: Potassium 1.5 mmol/L (3.5-5.1)
[2023-06-03] MEDS ORDERED: Potassium Replacement Protocol 1 EACH MISC MISCELLANE PRN (13:34)
[2023-06-03] MEDS ORDERED: POTASSIUM CHLORIDE ER 20 MEQ TAB.ER PO ONE (13:34)
[2023-06-03] MEDS ORDERED: POTASSIUM CHLORIDE ER 20 MEQ TAB.ER PO STA (14:15)
[2023-06-03] MEDS: POTASSIUM CHLORIDE 10 MEQ in WATER FOR INJECTION 1 100ML.BAG IVPB SCH ×2 (14:21→16:09)
[2023-06-03 14:45] LABS: Appearance,Urine Clear (Clear); Bilirubin,Urine Negative (Negative); Blood,Urine Trace (Negative); Color,Urine Light Yellow; Glucose,Urine (UA) Negative (Negative); Ketones,Urine Negative (Negative); Leukocyte Esterase,Urine Negative (Negative); Nitrite,Urine Negative (Negative); PH, Urine 6.5 (5.0-8.0); Protein,Urine 1+ (Negative); Urobilinogen,Urine 0.2 mg/dL (<2.0)
[2023-06-03 14:48] LABS: Bacteria,Urine Rare /hpf; Hyaline Casts,Urine 1 /lpf (0-2); RBC,Urine 2 /hpf (0-5); Squamous Epithelial Cell,Urine 3 /hpf (0-4); WBC,Urine 3 /hpf (0-5)
--- NOTE | 2023-06-03 15:08 | CT ---
EXAMINATION TYPE: CT abdomen pelvis wo con DATE OF EXAM: 06/03/2023 COMPARISON: 07/20/2020 INDICATION: Abdominal pain DLP: 533 mGycm, Automated exposure control for dose reduction was used. CONTRAST: 0 mL of Isovue 300. Study performed without Oral Contrast TECHNIQUE: Axial images were obtained from above the diaphragm to the pubic rami in the axial plane a t 5 mm thick sections. Reconstructed images are reviewed on the computer in the coronal plane. FINDINGS: Limited CT sections are obtained the lung bases. The lung bases are clear. CT ABDOMEN: Liver: Normal Spleen: Normal Pancreas: Normal Adrenal glands: The adrenal glands are normal. Gallbladder: Normal Kidneys: No masses are evident. No hydronephrosis is present. No cysts are present. There is a 0.5 cm left renal pelvic stone. No obstruction is evident. Aorta: Normal Inferior vena cava: Normal. CT PELVIS: Loops of bowel within the abdomen and pelvis are normal. This study is without oral contrast limi ting bowel evaluation. Appendix: Normal as visualized. Urinary bladder: Normal. Genitourinary structures: Uterus is normal. IUD is within the uterus. Adnexa are unremarkable. No yohana e fluid is within the pelvis. Osseous structures: No suspicious lytic or sclerotic lesions. IMPRESSION: 1. Left renal pelvic stone without obstruction.
[2023-06-03] MEDS ORDERED: IBUPROFEN 400 MG TAB PO PRN (16:07)
[2023-06-03] MEDS ORDERED: ACETAMINOPHEN TAB 325 MG TAB PO PRN (16:07)
[2023-06-03] MEDS ORDERED: MORPHINE SULFATE 4 MG/ML SYRINGE IV PRN (16:07)
[2023-06-03] MEDS ORDERED: KETOROLAC 15 MG/ML 1 ML VIAL IVP PRN (16:07)
[2023-06-03] MEDS ORDERED: NALOXONE 0.4 MG/ML 1 ML VIAL IV PRN (16:07)
[2023-06-03] MEDS: HYDROmorphone 0.5 MG/0.5 ML SYRINGE IVP PRN ×2 (20:43→23:59)
[2023-06-04] MEDS: POTASSIUM CHLORIDE ER 20 MEQ TAB.ER PO SCH ×9 (01:53→23:24)
[2023-06-04 08:12] LABS: African American GFR (CKD) 47 (>60 ml/min/1.73 sqM); Anion Gap 13 mmol/L; Blood Urea Nitrogen 24 mg/dL (7-17); Calcium 10.4 mg/dL (8.4-10.2); Carbon Dioxide 13 mmol/L (22-30); Chloride 116 mmol/L (98-107); Glucose 91 mg/dL (74-99); Non-African American GFR(CKD) 40 (>60 ml/min/1.73 sqM); Sodium 142 mmol/L (137-145)
[2023-06-04 08:21] LABS: NT-Pro-B-Type Natriuretic Pept 1230 pg/mL
[2023-06-04 08:26] LABS: Potassium 2.2 mmol/L (3.5-5.1)
[2023-06-04] MEDS ORDERED: CHOLECALCIFEROL 25 MCG (1000 IU) TABLET PO SCH (09:00)
[2023-06-04] MEDS ORDERED: Potassium Replacement Protocol 1 EACH MISC MISCELLANE PRN (09:28)
[2023-06-04] MEDS ORDERED: POTASSIUM CHLORIDE ER 20 MEQ TAB.ER PO ONE ×2 (09:28→14:30)
[2023-06-04] MEDS: atenoloL 50 MG TAB PO SCH (09:41)
[2023-06-04] MEDS: busPIRone HCl 10 MG TAB PO SCH ×2 (09:41→20:46)
[2023-06-04] MEDS: SERTRALINE 100 MG TAB PO SCH (09:41)
[2023-06-04] MEDS: buPROPion XL 150 MG TAB.ER.24H PO SCH ×3 (09:45→20:46)
[2023-06-04] MEDS: HYDROmorphone 0.5 MG/0.5 ML SYRINGE IVP PRN ×3 (09:51→23:30)
--- NOTE | 2023-06-04 10:29 | P.HPIM ---
History of Present Illness This is a pleasant 47 years old female with multiple medical problems including Polysubstane abuse, history of drug overdose, history of ARDS requiring intubation and mechanical ventilation, history of severe rhabdomyolysis and LUIS MIGUEL (recovered), history of MSSA pneumonia and sepsis, history of metabolic encephalopathy (recovered), hisotory of depression, suicidal thoughts, suicide attempts, obesity. blood clot in brain Patient presents because of periumbilical abdominal pain 9/10 in severity, nonradiating nonspecific in character associated with frequent nausea vomiting, she states she vomits food but no blood or coffee-ground substance. And she's been passing out over the last 2 weeks, before she came in she passed out 3 times, witnessed by her daughter who 14 years old with no seizure-like activity, no urine or bowel incontinence, no postictal confusion, patient would wake up right away. -Patient says that last February when she was discharged from the hospital she was given his stomach pills which she took for 2 weeks but then since then she stopped taking them. Also she did not follow-up with her PCP Dr. Mendoza since then. On the top of that patient was treated in her pain with Tylenol and ibuprofen Associated with generalized weakness. Urinary symptoms, no chest pain or dyspnea, no headache. But she got some headache and dizziness when she stands up. No asymmetrical in the lateral limb weakness or numbness or tingling. Box half pack per day and she was counseled to quit and she agrees and she wants the nicotine patch. No alcohol but uses marijuana. She denies depression or suicidal ideation currently. Patient is asked me to give her high-dose of Xanax 2 mg and Ativan high dose, we are going to give her 1 dose of Ativan as she looks very anxious Hemoglobin 11, mild leukocytosis 12.2. Risks of CBC, INR, Potassium 1.6 went up with treatment 2.2. Creatinine 1.7, down to 1.5. Liver enzymes not elevated. Magnesium 2.6. Urine analysis not suspicious of infection. CT of the abdomen and pelvis: No hydronephrosis, 0.5 cm left kidney cyst and small left renal stone Review of Systems Review of systems CONSTITUTIONAL: No fever, no malaise, no fatigue. HEENT: No recent visual problems or hearing problems. Denied any sore throat. CARDIOVASCULAR: No orthopnea, PND, no palpitations, no syncope. PULMONARY: No shortness of breath, no cough, no hemoptysis. GASTROINTESTINAL: No diarrhea, . Normoactive bowel sounds. NEUROLOGICAL: No headaches, no weakness, no numbness. HEMATOLOGICAL: Denies any bleeding or petechiae. GENITOURINARY: Denies any burning micturition, frequency, or urgency. MUSCULOSKELETAL/RHEUMATOLOGICAL: Denies any joint pain, swelling, or any muscle pain. ENDOCRINE: Denies any polyuria or polydipsia. Past Medical History Past Medical History: Pneumonia, Respiratory Disorder Additional Past Medical History / Comment(s): Polysubstane abuse, history of drug overdose, history of ARDS requiring intubation and mechanical ventilation, history of severe rhabdomyolysis and LUIS MIGUEL (recovered), history of MSSA pneumonia and sepsis, history of metabolic encephalopathy (recovered), hisotory of depression, suicidal thoughts, suicide attempts, obesity. 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 Date of last positivie culture/infection: None MDRO Source:: nare Past Surgical History: No Surgical Hx Reported Additional Past Surgical History / Comment(s): breast biopsy (date unknown), trach placement and peg tube placement for ARDS Past Anesthesia/Blood Transfusion Reactions: No Reported Reaction Past Psychological History: Anxiety, Depression, PTSD Additional Psychological History / Comment(s): 5 previous suicide attempts Smoking Status: Current every day smoker Past Alcohol Use History: None Reported Additional Past Alcohol Use History / Comment(s): The patient is a current smoker for at least 20 years about 1/2pack a day. She denies any IV drug use. Past Drug Use History: None Reported Additional Drug Use History / Comment(s): occasional alcohol drinking - Past Family History Mother Family Medical History: No Reported History Medications and Allergies Home Medications Medication Instructions Recorded Confirmed Type Sertraline HCl [Zoloft] 200 mg PO DAILY 11/16/18 06/03/23 History busPIRone HCL [Buspar] 30 mg PO BID 01/21/20 06/03/23 History buPROPion XL [Wellbutrin XL] 150 mg PO TID 05/16/20 06/03/23 History Cholecalciferol [Vitamin D3 (25 150 mcg PO DAILY 06/03/23 06/03/23 History Mcg = 1000 Iu)] atenoloL [Tenormin] 100 mg PO DAILY 06/03/23 06/03/23 History Allergies Allergy/AdvReac Type Severity Reaction Status Date / Time Sulfa (Sulfonamide Allergy Rash/Hives Verified 06/03/23 10:51 Antibiotics) sulfamethoxazole Allergy Rash/Hives Verified 06/03/23 10:51 [From Bactrim] trimethoprim [From Bactrim] Allergy Rash/Hives Verified 06/03/23 10:51 Physical Exam Vitals: Vital Signs Temp Pulse Pulse Resp BP BP Pulse Ox 06/04/23 09:34 97.6 F 75 18 136/89 100 06/04/23 05:24 97.8 F 65 17 119/79 99 06/04/23 00:00 97.7 F 67 18 119/79 93 L 06/03/23 22:21 97.0 F L 65 18 121/81 100 06/03/23 21:10 97.8 F 64 18 110/72 97 06/03/23 19:20 58 L 18 120/72 96 06/03/23 13:21 58 L 18 111/67 99 Intake and Output 06/03/23 06/04/23 06/04/23 22:59 06:59 14:59 Intake Total 0 Output Total 650 450 Balance -650 -450 Intake: Oral 0 Output: Urine 650 450 Other: Weight 70.307 kg GENERAL: The patient is alert and oriented x3, not in any acute distress. Well developed, well nourished. HEENT: Pupils are round and equally reacting to light. EOMI. No scleral icterus. No conjunctival pallor. Normocephalic, atraumatic. No pharyngeal erythema. No thyromegaly. CARDIOVASCULAR: S1 and S2 present. No murmurs, rubs, or gallops. PULMONARY: Chest is clear to auscultation, no wheezing , no crackles. -ABDOMEN: Soft, periumbilical tenderness, no guarding or rebound tenderness, nondistended, normoactive bowel sounds. No palpable organomegaly. Midline scar of previous expiratory laparotomy MUSCULOSKELETAL: No joint swelling or deformity. EXTREMITIES: No cyanosis, clubbing, or pedal edema. NEUROLOGICAL: Gross neurological examination did not reveal any focal deficits. SKIN: No rashes. no petechiae. Results CBC & Chem 7: 06/03/23 11:22 06/04/23 07:00 Labs: Abnormal Lab Results - Last 24 Hours (Table) 06/03/23 06/03/23 06/03/23 Range/Units 11:22 11:22 12:47 WBC 12.2 H (3.8-10.6) k/uL Hgb 11.0 L (11.4-16.0) gm/dL Hct 33.7 L (34.0-46.0) % RDW 16.6 H (11.5-15.5) % Plt Count 537 H (150-450) k/uL Potassium 1.6 L* 1.5 L* (3.5-5.1) mmol/L Chloride 112 H 114 H (98-107) mmol/L Carbon Dioxide 13 L 13 L (22-30) mmol/L BUN 29 H 29 H (7-17) mg/dL Creatinine 1.77 H 1.59 H (0.52-1.04) mg/dL Calcium 10.6 H (8.4-10.2) mg/dL Magnesium (1.6-2.3) mg/dL Total Protein 6.1 L (6.3-8.2) g/dL Albumin 3.3 L (3.5-5.0) g/dL Urine Protein (Negative) Urine Blood (Negative) Urine Bacteria (None) /hpf 06/03/23 06/03/23 06/04/23 Range/Units 14:30 15:05 00:35 WBC (3.8-10.6) k/uL Hgb (11.4-16.0) gm/dL Hct (34.0-46.0) % RDW (11.5-15.5) % Plt Count (150-450) k/uL Potassium 1.6 L* (3.5-5.1) mmol/L Chloride (98-107) mmol/L Carbon Dioxide (22-30) mmol/L BUN (7-17) mg/dL Creatinine (0.52-1.04) mg/dL Calcium (8.4-10.2) mg/dL Magnesium 2.6 H (1.6-2.3) mg/dL Total Protein (6.3-8.2) g/dL Albumin (3.5-5.0) g/dL Urine Protein 1+ H (Negative) Urine Blood Trace H (Negative) Urine Bacteria Rare H (None) /hpf 06/04/23 Range/Units 07:00 WBC (3.8-10.6) k/uL Hgb (11.4-16.0) gm/dL Hct (34.0-46.0) % RDW (11.5-15.5) % Plt Count (150-450) k/uL Potassium 2.2 L* (3.5-5.1) mmol/L Chloride 116 H (98-107) mmol/L Carbon Dioxide 13 L (22-30) mmol/L BUN 24 H (7-17) mg/dL Creatinine 1.53 H (0.52-1.04) mg/dL Calcium 10.4 H (8.4-10.2) mg/dL Magnesium (1.6-2.3) mg/dL Total Protein (6.3-8.2) g/dL Albumin (3.5-5.0) g/dL Urine Protein (Negative) Urine Blood (Negative) Urine Bacteria (None) /hpf Thrombosis Risk Factor Assmnt - Choose All That Apply Any of the Below Risk Factors Present?: Yes Each Factor Represents 1 point: Age 41-60 years Other Risk Factors: No Thrombosis Risk Factor Assessment Total Risk Factor Score: 1 Thrombosis Risk Factor Assessment Level: Low Risk Assessment and Plan Assessment: Severe hypokalemia, present on admission Abdominal pain and tenderness 2 weeks History of perforated gastric ulcer status post oversew and Ismael;s patch, on 02/2023 complicated by septic shock non-adherence and noncompliance to treatment History of Polysubstane abuse, history of drug overdose hisotory of depression, suicidal thoughts, suicide attempts history of ARDS requiring intubation and mechanical ventilation history of severe rhabdomyolysis and LUIS MIGUEL (recovered), History of MSSA pneumonia and sepsis, history of metabolic encephalopathy (recovered), Obesity nicotine dependence Psychiatric as abuse with marijuana Anemia small left renal stone Plan: Continue with replacing potassium per protocol with telemetry monitoring Continue with aggressive hydration Continue with Protonix twice daily Avoid NSAIDs Monitor creatinine and consult nephrology service We'll give Ativan 1 times after that we will try to limit controlled substance of possible Pain management Labs and medication were reviewed.. Continue same treatment. Continue with symptomatic treatment. Resume home medication. Monitor labs and vitals. DVT and GI prophylaxis. Further recommendations as per clinical course of the patient DVT prophylaxis: no Subcutaneous heparin, for suspected gastric ulcer GI Prophylaxis: Ppi Prognosis is guarded
[2023-06-04] MEDS: ONDANSETRON 4 MG/2 ML VIAL IVP PRN ×2 (11:21→21:54)
[2023-06-04] MEDS: PANTOPRAZOLE 40 MG/10 ML VIAL IVP SCH ×2 (11:21→20:46)
--- NOTE | 2023-06-04 11:39 | P.NPCON ---
History of Present Illness - Reason for Consult acute renal failure, hypokalemia - History of Present Illness Reason for consultation: Acute kidney injury and hypokalemia History of present illness: Patient is a 47-year-old female seen in renal consultation for acute kidney injury and hypokalemia. Patient's creatinine on admission was 1.77 and is 1.53 today. Baseline creatinine is near 1. Patient's potassium level noted to be critically low at 1.5 and is up to 2.2 today. Magnesium level 2.6 yesterday. Patient came to the hospital due to abdominal pain as well as vomiting. Patient states the vomiting is chronic but was worse the last 2-3 days. Position she had a perforated gastric ulcer and underwent surgical intervention in February 2023. She does admit to taking Motrin twice daily for the last couple of weeks. No history of diabetes. Denies history of coronary artery disease. Denies family history of renal disease. Patient states she was having syncopal episodes and was brought to the hospital by the EMS. She denies seizures. She denies diarrhea. No dynamic stable. She is on room air. She is currently on clear liquid diet. No hydronephrosis noted on CAT scan. No fever or chills. No use of diuretics. Vital signs are stable. General: No acute distress. HEENT: Head exam is unremarkable. LUNGS: No audible rhonchi or wheezes. HEART: Rate and Rhythm are regular. ABDOMEN: Nontender. Surgical scar noted. EXTREMITITES: No edema. Past Medical History Past Medical History: Pneumonia, Respiratory Disorder Additional Past Medical History / Comment(s): Polysubstane abuse, history of drug overdose, history of ARDS requiring intubation and mechanical ventilation, history of severe rhabdomyolysis and LUIS MIGUEL (recovered), history of MSSA pneumonia and sepsis, history of metabolic encephalopathy (recovered), hisotory of depression, suicidal thoughts, suicide attempts, obesity. 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 Date of last positivie culture/infection: None MDRO Source:: nare Past Surgical History: No Surgical Hx Reported Additional Past Surgical History / Comment(s): breast biopsy (date unknown), trach placement and peg tube placement for ARDS Past Anesthesia/Blood Transfusion Reactions: No Reported Reaction Past Psychological History: Anxiety, Depression, PTSD Additional Psychological History / Comment(s): 5 previous suicide attempts Smoking Status: Current every day smoker Past Alcohol Use History: None Reported Additional Past Alcohol Use History / Comment(s): The patient is a current smoker for at least 20 years about 1/2pack a day. She denies any IV drug use. Past Drug Use History: None Reported Additional Drug Use History / Comment(s): occasional alcohol drinking - Past Family History Mother Family Medical History: No Reported History Medications and Allergies Home Medications Medication Instructions Recorded Confirmed Type Sertraline HCl [Zoloft] 200 mg PO DAILY 11/16/18 06/03/23 History busPIRone HCL [Buspar] 30 mg PO BID 01/21/20 06/03/23 History buPROPion XL [Wellbutrin XL] 150 mg PO TID 05/16/20 06/03/23 History Cholecalciferol [Vitamin D3 (25 150 mcg PO DAILY 06/03/23 06/03/23 History Mcg = 1000 Iu)] atenoloL [Tenormin] 100 mg PO DAILY 06/03/23 06/03/23 History Allergies Allergy/AdvReac Type Severity Reaction Status Date / Time Sulfa (Sulfonamide Allergy Rash/Hives Verified 06/03/23 10:51 Antibiotics) sulfamethoxazole Allergy Rash/Hives Verified 06/03/23 10:51 [From Bactrim] trimethoprim [From Bactrim] Allergy Rash/Hives Verified 06/03/23 10:51 Physical Exam Vitals: Vital Signs Temp Pulse Pulse Resp BP BP Pulse Ox 06/04/23 11:26 97.7 F 58 L 22 98/68 100 06/04/23 09:34 97.6 F 75 18 136/89 100 06/04/23 05:24 97.8 F 65 17 119/79 99 06/04/23 00:00 97.7 F 67 18 119/79 93 L 06/03/23 22:21 97.0 F L 65 18 121/81 100 06/03/23 21:10 97.8 F 64 18 110/72 97 06/03/23 19:20 58 L 18 120/72 96 06/03/23 13:21 58 L 18 111/67 99 Intake and Output 06/03/23 06/04/23 06/04/23 22:59 06:59 14:59 Intake Total 0 Output Total 650 450 Balance -650 -450 Intake: Oral 0 Output: Urine 650 450 Other: Weight 70.307 kg Results - Lab Results Most recent lab results Calcium 10.4 mg/dL (8.4-10.2) H 06/04/23 07:00 Magnesium 2.6 mg/dL (1.6-2.3) H 06/03/23 15:05 06/03/23 11:22 06/04/23 07:00 Assessment and Plan Plan: Assessment: 1. Acute kidney injury secondary to ATN secondary to hypovolemia from vomiting and poor intake. Creatinine was 1.77 on admission and is 1.53 today. No hydronephrosis noted on CAT scan. 2. Hypokalemia from hypovolemia induced renal potassium losses. Also component of poor intake. Magnesium normal. 3. Metabolic acidosis secondary to acute kidney injury and IV fluids. 4. History of perforated ulcer status post surgical intervention earlier this year. 5. Hypercalcemia from volume contraction and vitamin D supplementation. Plan: Start bicarb drip at 75 mL an hour. 80 mEq potassium supplementation now. Repeat potassium level in 2 hours. Stop vitamin D supplementation. Stop NSAIDs. Avoid nephrotoxins. Continue to monitor renal function and urine output. Thank you for the consultation. I will continue to follow the patient with you during her hospital stay.
[2023-06-04] MEDS: DEXTROSE 5% IN WATER 1,000 ML with SODIUM BICARB (1 MEQ/ML) 150 ML IV SCH (13:20)
[2023-06-04] MEDS ORDERED: LORazepam 2 MG/ML INJ IV ONE (13:33)
[2023-06-04] MEDS: NICOTINE 21MG/24HR PATCH TRANSDERM SCH (13:37)
[2023-06-04] MEDS ORDERED: POTASSIUM CHLORIDE 20 MEQ in WATER FOR INJECTION 1 100ML.BAG IVPB STA (13:37)
[2023-06-04] MEDS ORDERED: POTASSIUM CHLORIDE ER 20 MEQ TAB.ER PO STA (13:37)
[2023-06-04 14:01] VITALS: BMI 24.3
--- NOTE | 2023-06-04 15:57 | P.GSCN ---
History of Present Illness Consult date: 06/04/23 History of present illness: CHIEF COMPLAINT: Abdominal pain HISTORY OF PRESENT ILLNESS: This is a 47-year-old female with a history of a perforated gastric ulcer with repair in February 2023 at [facility]. Patient presents with abdominal pain 2 weeks. She reports her pain is located at her mid line abdominal incision site. She has had nausea and vomiting which is not new for her. She reports that she's been off of her omeprazole for about 2 weeks she couldn't find it. She reports having regular bowel movements. Denies any blood in her stools or black stools. Apparently she's been using NSAIDs daily. Surgical service consulted in regards to abdominal pain. PAST MEDICAL HISTORY: Pneumonia, respiratory failure, ARDS after drug overdose requiring PEG and trach. PEG and trach removal. Depression, suicide attempt, Klor-Con brain, anxiety, depression, PTSD, history of polysubstance abuse PAST SURGICAL HISTORY: See below MEDICATIONS: See below ALLERGIES: See below SOCIAL HISTORY: No illicit drug use. Patient has not used drugs for several years REVIEW OF SYSTEMS: CONSTITUTIONAL: Denies fever or chills. HEENT: Denies blurred vision, vision changes, or eye pain. Denies hemoptysis CARDIOVASCULAR: Denies chest pain or pressure. RESPIRATORY: No shortness of breath. GASTROINTESTINAL: See HPI for pertinent findings HEMATOLOGIC: Denies bleeding disorders. GENITOURINARY: Denies any blood in urine or increased urinary frequency. SKIN: Denies pruitis. Denies rash. PHYSICAL EXAM: VITAL SIGNS: Reviewed GENERAL: Well-developed in no acute distress. HEENT: No sclera icterus. Extraocular movements grossly intact. Moist buccal mucosa. Head is atraumatic, normocephalic. No nasal drainage. ABDOMEN: Soft. Nondistended. Midline incision clean dry and intact healed. She does have tenderness with palpation of the midline incision. NEUROLOGIC: Alert and oriented. Cranial nerves II through XII grossly intact. LABORATORY DATA: WBC 12.2 Hgb 11.0 platelets 537 Sodium 142 potassium 1.5 up to 2.2 creatinine 1.53 IMAGING: Computed tomography scan abdomen and pelvis left renal pelvic stone without obstruction ASSESSMENT: 1. Abdominal pain with nausea and vomiting 2. Daily NSAID use 3. History of perforated gastric ulcer with repair in February 2023 4. Hypokalemia 5. Acute kidney injury PLAN: -Patient scheduled for EGD on , 06/06/[address] luke -Continue IV Protonix -No NSAIDs -Continue to correct potassium and acute kidney injury -Continue IV fluids -Continue clear liquids Physician Nsh Teacher note has been reviewed by physician. Signing provider agrees with the documented findings, assessment, and plan of care. Past Medical History Past Medical History: Pneumonia, Respiratory Disorder Additional Past Medical History / Comment(s): Polysubstane abuse, history of drug overdose, history of ARDS requiring intubation and mechanical ventilation, history of severe rhabdomyolysis and LUIS MIGUEL (recovered), history of MSSA pneumonia and sepsis, history of metabolic encephalopathy (recovered), hisotory of depression, suicidal thoughts, suicide attempts, obesity. 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 Year Discovered:: None MDRO Source:: nare Past Surgical History: No Surgical Hx Reported Additional Past Surgical History / Comment(s): breast biopsy (date unknown), trach placement and peg tube placement for ARDS Past Anesthesia/Blood Transfusion Reactions: No Reported Reaction Past Psychological History: Anxiety, Depression, PTSD Additional Psychological History / Comment(s): 5 previous suicide attempts Smoking Status: Current every day smoker Past Alcohol Use History: None Reported Additional Past Alcohol Use History / Comment(s): The patient is a current smoker for at least 20 years about 1/2pack a day. She denies any IV drug use. Past Drug Use History: None Reported Additional Drug Use History / Comment(s): occasional alcohol drinking - Past Family History Mother Family Medical History: No Reported History Medications and Allergies Home Medications Medication Instructions Recorded Confirmed Type Sertraline HCl [Zoloft] 200 mg PO DAILY 11/16/18 06/03/23 History busPIRone HCL [Buspar] 30 mg PO BID 01/21/20 06/03/23 History buPROPion XL [Wellbutrin XL] 150 mg PO TID 05/16/20 06/03/23 History Cholecalciferol [Vitamin D3 (25 150 mcg PO DAILY 06/03/23 06/03/23 History Mcg = 1000 Iu)] atenoloL [Tenormin] 100 mg PO DAILY 06/03/23 06/03/23 History Allergies Allergy/AdvReac Type Severity Reaction Status Date / Time Sulfa (Sulfonamide Allergy Rash/Hives Verified 06/03/23 10:51 Antibiotics) sulfamethoxazole Allergy Rash/Hives Verified 06/03/23 10:51 [From Bactrim] trimethoprim [From Bactrim] Allergy Rash/Hives Verified 06/03/23 10:51 Surgical - Exam Vital Signs Temp Pulse Resp BP Pulse Ox 97 F L 58 L 18 124/78 95 06/03/23 09:57 06/03/23 09:57 06/03/23 09:57 06/03/23 09:57 06/03/23 09:57 Results - Labs 06/03/23 11:22 06/04/23 12:54 Abnormal Lab Results - Last 24 Hours (Table) 06/03/23 06/03/23 06/03/23 Range/Units 11:22 12:47 14:30 Potassium 1.6 L* 1.5 L* (3.5-5.1) mmol/L Chloride 112 H 114 H (98-107) mmol/L Carbon Dioxide 13 L 13 L (22-30) mmol/L BUN 29 H 29 H (7-17) mg/dL Creatinine 1.77 H 1.59 H (0.52-1.04) mg/dL Calcium 10.6 H (8.4-10.2) mg/dL Magnesium (1.6-2.3) mg/dL Total Protein 6.1 L (6.3-8.2) g/dL Albumin 3.3 L (3.5-5.0) g/dL Urine Protein 1+ H (Negative) Urine Blood Trace H (Negative) Urine Bacteria Rare H (None) /hpf 06/03/23 06/04/23 06/04/23 Range/Units 15:05 00:35 07:00 Potassium 1.6 L* 2.2 L* (3.5-5.1) mmol/L Chloride 116 H (98-107) mmol/L Carbon Dioxide 13 L (22-30) mmol/L BUN 24 H (7-17) mg/dL Creatinine 1.53 H (0.52-1.04) mg/dL Calcium 10.4 H (8.4-10.2) mg/dL Magnesium 2.6 H (1.6-2.3) mg/dL Total Protein (6.3-8.2) g/dL Albumin (3.5-5.0) g/dL Urine Protein (Negative) Urine Blood (Negative) Urine Bacteria (None) /hpf Diabetes panel 06/03/23 06/03/23 06/04/23 Range/Units 11: 12:47 00:35 Sodium 143 142 (137-145) mmol/L Potassium 1.6 L* 1.5 L* 1.6 L* (3.5-5.1) mmol/L Chloride 112 H 114 H (98-107) mmol/L Carbon Dioxide 13 L 13 L (22-30) mmol/L BUN 29 H 29 H (7-17) mg/dL Creatinine 1.77 H 1.59 H (0.52-1.04) mg/dL Glucose 96 89 (74-99) mg/dL Calcium 10.6 H 9.8 (8.4-10.2) mg/dL AST 25 23 (14-36) U/L ALT 17 15 (4-34) U/L Alkaline Phosphatase 101 86 (38-126) U/L Total Protein 6.9 6.1 L (6.3-8.2) g/dL Albumin 3.7 3.3 L (3.5-5.0) g/dL 06/04/23 Range/Units 07:00 Sodium 142 (137-145) mmol/L Potassium 2.2 L* (3.5-5.1) mmol/L Chloride 116 H (98-107) mmol/L Carbon Dioxide 13 L (22-30) mmol/L BUN 24 H (7-17) mg/dL Creatinine 1.53 H (0.52-1.04) mg/dL Glucose 91 (74-99) mg/dL Calcium 10.4 H (8.4-10.2) mg/dL AST (14-36) U/L ALT (4-34) U/L Alkaline Phosphatase (38-126) U/L Total Protein (6.3-8.2) g/dL Albumin (3.5-5.0) g/dL Calcium panel 06/03/23 06/03/23 06/04/23 Range/Units 12:47 07:00 Calcium 10.6 H 9.8 10.4 H (8.4-10.2) mg/dL Albumin 3.7 3.3 L (3.5-5.0) g/dL Pituitary panel 06/03/23 06/03/23 06/04/23 Range/Units 11:22 12:47 00:35 Sodium 143 142 (137-145) mmol/L Potassium 1.6 L* 1.5 L* 1.6 L* (3.5-5.1) mmol/L Chloride 112 H 114 H (98-107) mmol/L Carbon Dioxide 13 L 13 L (22-30) mmol/L BUN 29 H 29 H (7-17) mg/dL Creatinine 1.77 H 1.59 H (0.52-1.04) mg/dL Glucose 96 89 (74-99) mg/dL Calcium 10.6 H 9.8 (8.4-10.2) mg/dL 06/04/23 Range/Units 07:00 Sodium 142 (137-145) mmol/L Potassium 2.2 L* (3.5-5.1) mmol/L Chloride 116 H (98-107) mmol/L Carbon Dioxide 13 L (22-30) mmol/L BUN 24 H (7-17) mg/dL Creatinine 1.53 H (0.52-1.04) mg/dL Glucose 91 (74-99) mg/dL Calcium 10.4 H (8.4-10.2) mg/dL Adrenal panel 06/03/23 06/03/23 06/04/23 Range/Units 11:22 12:47 00:35 Sodium 143 142 (137-145) mmol/L Potassium 1.6 L* 1.5 L* 1.6 L* (3.5-5.1) mmol/L Chloride 112 H 114 H (98-107) mmol/L Carbon Dioxide 13 L 13 L (22-30) mmol/L BUN 29 H 29 H (7-17) mg/dL Creatinine 1.77 H 1.59 H (0.52-1.04) mg/dL Glucose 96 89 (74-99) mg/dL Calcium 10.6 H 9.8 (8.4-10.2) mg/dL Total Bilirubin 0.4 0.3 (0.2-1.3) mg/dL AST 25 23 (14-36) U/L ALT 17 15 (4-34) U/L Alkaline Phosphatase 101 86 (38-126) U/L Total Protein 6.9 6.1 L (6.3-8.2) g/dL Albumin 3.7 3.3 L (3.5-5.0) g/dL 06/04/23 Range/Units 07:00 Sodium 142 (137-145) mmol/L Potassium 2.2 L* (3.5-5.1) mmol/L Chloride 116 H (98-107) mmol/L Carbon Dioxide 13 L (22-30) mmol/L BUN 24 H (7-17) mg/dL Creatinine 1.53 H (0.52-1.04) mg/dL Glucose 91 (74-99) mg/dL Calcium 10.4 H (8.4-10.2) mg/dL Total Bilirubin (0.2-1.3) mg/dL AST (14-36) U/L ALT (4-34) U/L Alkaline Phosphatase (38-126) U/L Total Protein (6.3-8.2) g/dL Albumin (3.5-5.0) g/dL
[2023-06-04] MEDS ORDERED: POTASSIUM CHLORIDE ER 20 MEQ TAB.ER PO SCH (18:00)
[2023-06-05] MEDS ORDERED: POTASSIUM CHLORIDE ER 20 MEQ TAB.ER PO ONE (01:22)
[2023-06-05] MEDS ORDERED: POTASSIUM CHLORIDE ER 20 MEQ TAB.ER PO STA ×2 (02:35→10:55)
[2023-06-05] MEDS: HYDROmorphone 0.5 MG/0.5 ML SYRINGE IVP PRN ×2 (02:38→08:02)
[2023-06-05] MEDS: DEXTROSE 5% IN WATER 1,000 ML with SODIUM BICARB (1 MEQ/ML) 150 ML IV SCH ×2 (04:19→21:47)
[2023-06-05 04:26] LABS: ALT 17 U/L (4-34); AST 44 U/L (14-36); African American GFR (CKD) 52 (>60 ml/min/1.73 sqM); Albumin 2.7 g/dL (3.5-5.0); Alkaline Phosphatase 71 U/L (38-126); Anion Gap 10 mmol/L; Bilirubin, Delta 0.2 mg/dL (0.0-0.2); Blood Urea Nitrogen 17 mg/dL (7-17); Calcium 9.2 mg/dL (8.4-10.2); Carbon Dioxide 17 mmol/L (22-30); Chloride 118 mmol/L (98-107); Glucose 94 mg/dL (74-99); Magnesium 2.5 mg/dL (1.6-2.3); Non-African American GFR(CKD) 45 (>60 ml/min/1.73 sqM); Potassium 3.8 mmol/L (3.5-5.1); Sodium 145 mmol/L (137-145); Total Bilirubin 0.2 mg/dL (0.2-1.3); Total Protein 5.2 g/dL (6.3-8.2)
[2023-06-05 04:38] LABS: Anisocytosis Slight; Basophils # (A) 0.1 k/uL (0-0.2); Basophils % (A) 1 %; Eosinophils # (A) 0.4 k/uL (0-0.7); Eosinophils % (A) 3 %; HCT 28.2 % (34.0-46.0); Hypochromasia Slight; Lymphocytes # (A) 3.3 k/uL (1.0-4.8); Lymphocytes % (A) 25 %; MCH 28.4 pg (25.0-35.0); MCHC 32.8 g/dL (31.0-37.0); MCV 86.5 fL (80.0-100.0); Mean Platelet Volume 8.9; Monocytes # (A) 0.5 k/uL (0-1.0); Monocytes % (A) 4 %; Neutrophils # (A) 8.7 k/uL (1.3-7.7); Neutrophils % (A) 66 %; Platelet Count 520 k/uL (150-450); Poikilocytosis Moderate; RBC 3.26 m/uL (3.80-5.40); RDW 17.6 % (11.5-15.5); WBC 13.1 k/uL (3.8-10.6)
[2023-06-05 04:41] LABS: HGB 9.3 gm/dL (11.4-16.0)
[2023-06-05] MEDS: PANTOPRAZOLE 40 MG/10 ML VIAL IVP SCH ×2 (08:02→20:04)
[2023-06-05] MEDS: buPROPion XL 150 MG TAB.ER.24H PO SCH ×3 (08:04→20:05)
[2023-06-05] MEDS: atenoloL 50 MG TAB PO SCH (08:04)
[2023-06-05] MEDS: busPIRone HCl 10 MG TAB PO SCH ×2 (08:04→20:04)
[2023-06-05] MEDS: NICOTINE 21MG/24HR PATCH TRANSDERM SCH (08:04)
[2023-06-05] MEDS: SERTRALINE 100 MG TAB PO SCH (08:04)
[2023-06-05] MEDS: ONDANSETRON 4 MG/2 ML VIAL IVP PRN (08:14)
--- NOTE | 2023-06-05 10:55 | P.PN ---
Subjective Patient is seen in follow-up for acute kidney injury and hypokalemia. Creatinine trending down. Potassium level also improved. Tolerating clear l iquid diet. No vomiting or diarrhea today. Vital signs are stable. General: No acute distress. HEENT: Head exam is unremarkable. LUNGS: No audible rhonchi or wheezes. HEART: Rate and Rhythm are regular. ABDOMEN: Nontender. EXTREMITITES: No edema. Objective - Vital Signs Vital signs: Vital Signs Temp 98.4 F 06/05/23 08:00 Pulse 67 06/05/23 08:00 Resp 20 06/05/23 08:00 BP 91/62 06/05/23 08:00 Pulse Ox 96 06/05/23 08:07 FiO2 Intake & Output 06/04/23 06/05/23 06/05/23 18:59 06:59 18:59 Intake Total 110 0 Output Total 450 Balance -340 0 Weight 70.307 kg Intake: Oral 110 0 Output: Urine 450 Other: # Voids 1 1 - Labs CBC & Chem 7: 06/05/23 03:50 06/05/23 03:50 Labs: Abnormal Lab Results - Last 24 Hours (Table) 06/04/23 06/04/23 06/05/23 Range/Units 12:54 16:08 00:14 WBC (3.8-10.6) k/uL RBC (3.80-5.40) m/uL Hgb (11.4-16.0) gm/dL Hct (34.0-46.0) % RDW (11.5-15.5) % Plt Count (150-450) k/uL Neutrophils # (1.3-7.7) k/uL Potassium 2.2 L* 2.6 L* 3.1 L (3.5-5.1) mmol/L Chloride (98-107) mmol/L Carbon Dioxide (22-30) mmol/L Creatinine (0.52-1.04) mg/dL Magnesium (1.6-2.3) mg/dL AST (14-36) U/L Total Protein (6.3-8.2) g/dL Albumin (3.5-5.0) g/dL 06/05/23 06/05/23 Range/Units 03:50 03:50 WBC 13.1 H (3.8-10.6) k/uL RBC 3.26 L (3.80-5.40) m/uL Hgb 9.3 L D (11.4-16.0) gm/dL Hct 28.2 L (34.0-46.0) % RDW 17.6 H (11.5-15.5) % Plt Count 520 H (150-450) k/uL Neutrophils # 8.7 H (1.3-7.7) k/uL Potassium (3.5-5.1) mmol/L Chloride 118 H (98-107) mmol/L Carbon Dioxide 17 L (22-30) mmol/L Creatinine 1.39 H (0.52-1.04) mg/dL Magnesium 2.5 H (1.6-2.3) mg/dL AST 44 H (14-36) U/L Total Protein 5.2 L (6.3-8.2) g/dL Albumin 2.7 L (3.5-5.0) g/dL Assessment and Plan Plan: Assessment: 1. Acute kidney injury secondary to ATN secondary to hypovolemia from vomiting and poor intake. Creatinine was 1.77 on admission and is 1.39 today. No hydronephrosis noted on CAT scan. 2. Hypokalemia from hypovolemia induced renal potassium losses. Also component of poor intake. Magnesium normal. Replaced. Improved. 3. Metabolic acidosis secondary to acute kidney injury and IV fluids. Improving with bicarbonate drip. 4. History of perforated ulcer status post surgical intervention earlier this year. 5. Hypercalcemia from volume contraction and vitamin D supplementation. Improved. Plan: Maintain bicarb drip. Replace potassium. Stopped vitamin D supplementation. Stopped NSAIDs. Avoid nephrotoxins. Continue to monitor renal function and urine output.
[2023-06-05] MEDS: HYDROcodone/APAP 5-325MG 1 EACH TAB PO PRN ×2 (12:32→18:25)
--- NOTE | 2023-06-05 15:39 | P.PN ---
Subjective Progress Note Date: 06/05/23 CHIEF COMPLAINT: Abdominal pain HISTORY OF PRESENT ILLNESS: Patient has no new complaints. Complains of pain at the old incision site. Afebrile. BP 91/62. WBC is 13.1 Hgb 9.3 platelets 527.45 potassium 3.9 creatinine is 1.3 CO2 17 magnesium 2.5 stool for C. diff negative PHYSICAL EXAM: VITAL SIGNS: Reviewed. GENERAL: Well-developed in no acute distress. ABDOMEN: Soft. Nondistended. ASSESSMENT: 1. Abdominal pain with nausea and vomiting 2. Daily NSAID use 3. History of perforated gastric ulcer with repair in February 2023 4. Hypokalemia resolved 5. Acute kidney injury PLAN: -Patient scheduled for EGD on , 06/06/[address] luke -Continue IV Protonix -No NSAIDs -Nothing by mouth after midnight -Repeat labs in a.m. Physician Cleaning Custodian note has been reviewed by physician. Signing provider agrees with the documented findings, assessment, and plan of care. Objective - Vital Signs Vital signs: Vital Signs Temp 98.4 F 06/05/23 08:00 Pulse 67 06/05/23 08:00 Resp 20 06/05/23 08:00 BP 91/62 06/05/23 08:00 Pulse Ox 96 06/05/23 08:07 FiO2 Intake & Output 06/04/23 06/05/23 06/05/23 18:59 06:59 18:59 Intake Total 110 0 Output Total 450 Balance -340 0 Weight 70.307 kg Intake: Oral 110 0 Output: Urine 450 Other: # Voids 1 1 - Labs CBC & Chem 7: 06/05/23 03:50 06/05/23 03:50 Labs: Abnormal Lab Results - Last 24 Hours (Table) 06/04/23 06/04/23 06/05/23 Range/Units 12:54 16:08 00:14 WBC (3.8-10.6) k/uL RBC (3.80-5.40) m/uL Hgb (11.4-16.0) gm/dL Hct (34.0-46.0) % RDW (11.5-15.5) % Plt Count (150-450) k/uL Neutrophils # (1.3-7.7) k/uL Potassium 2.2 L* 2.6 L* 3.1 L (3.5-5.1) mmol/L Chloride (98-107) mmol/L Carbon Dioxide (22-30) mmol/L Creatinine (0.52-1.04) mg/dL Magnesium (1.6-2.3) mg/dL AST (14-36) U/L Total Protein (6.3-8.2) g/dL Albumin (3.5-5.0) g/dL 06/05/23 06/05/23 Range/Units 03:50 03:50 WBC 13.1 H (3.8-10.6) k/uL RBC 3.26 L (3.80-5.40) m/uL Hgb 9.3 L D (11.4-16.0) gm/dL Hct 28.2 L (34.0-46.0) % RDW 17.6 H (11.5-15.5) % Plt Count 520 H (150-450) k/uL Neutrophils # 8.7 H (1.3-7.7) k/uL Potassium (3.5-5.1) mmol/L Chloride 118 H (98-107) mmol/L Carbon Dioxide 17 L (22-30) mmol/L Creatinine 1.39 H (0.52-1.04) mg/dL Magnesium 2.5 H (1.6-2.3) mg/dL AST 44 H (14-36) U/L Total Protein 5.2 L (6.3-8.2) g/dL Albumin 2.7 L (3.5-5.0) g/dL
[2023-06-05] MEDS: hydrOXYzine HCL 25 MG TAB PO PRN (17:29)
[2023-06-05] MEDS ORDERED: MELATONIN 5 MG TABLET PO PRN (19:43)
[2023-06-06] MEDS: HYDROcodone/APAP 5-325MG 1 EACH TAB PO PRN ×2 (00:53→09:23)
[2023-06-06] MEDS: hydrOXYzine HCL 25 MG TAB PO PRN (03:31)
--- NOTE | 2023-06-06 06:03 | P.PN ---
Subjective This is a pleasant 47 years old female with multiple medical problems including Polysubstane abuse, history of drug overdose, history of ARDS requiring intubation and mechanical ventilation, history of severe rhabdomyolysis and LUIS MIGUEL (recovered), history of MSSA pneumonia and sepsis, history of metabolic encephalopathy (recovered), hisotory of depression, suicidal thoughts, suicide attempts, obesity. blood clot in brain Patient presents because of periumbilical abdominal pain 9/10 in severity, nonradiating nonspecific in character associated with frequent nausea vomiting, she states she vomits food but no blood or coffee-ground substance. And she's been passing out over the last 2 weeks, before she came in she passed out 3 times, witnessed by her daughter who 14 years old with no seizure-like activity, no urine or bowel incontinence, no postictal confusion, patient would wake up right away. -Patient says that last February when she was discharged from the hospital she was given his stomach pills which she took for 2 weeks but then since then she stopped taking them. Also she did not follow-up with her PCP Dr. Mendoza since then. On the top of that patient was treated in her pain with Tylenol and ibuprofen Associated with generalized weakness. Urinary symptoms, no chest pain or dyspnea, no headache. But she got some headache and dizziness when she stands up. No asymmetrical in the lateral limb weakness or numbness or tingling. Box half pack per day and she was counseled to quit and she agrees and she wants the nicotine patch. No alcohol but uses marijuana. She denies depression or suicidal ideation currently. Patient is asked me to give her high-dose of Xanax 2 mg and Ativan high dose, we are going to give her 1 dose of Ativan as she looks very anxious Hemoglobin 11, mild leukocytosis 12.2. Risks of CBC, INR, Potassium 1.6 went up with treatment 2.2. Creatinine 1.7, down to 1.5. Liver enzymes not elevated. Magnesium 2.6. Urine analysis not suspicious of infection. CT of the abdomen and pelvis: No hydronephrosis, 0.5 cm left kidney cyst and small left renal stone 06/05/2023 Patient looks comfortable, less abdominal pain, no other new complaint but anxious. I talked to the patient to decrease her Dilaudid morphine into [employer] with risks benefits are explained to her recent use [employer] 5 mg for now. atarax is added for anxiety (After I got a call that Patient had found a pack of pills found by bedside nurse and it was sent to lab, the patient told the nurse this is melatonin 10 mg that she takes at home, I asked Payton to call for security for double check, avoid giving pills from the pack to the patient. Because of this we started melatonin 10 mg at bedtime when necessary for the patient) Hemoglobin dropped to 9, rest of labs reviewed, potassium improved to 3.9, creatinine down to 1.3. WBC is 13.1. Patient remains on bicarbonate drip at 75 mL/h Blood pressure is slightly on the low side therefore going to decrease atenolol dose 100 mg once to 50 mg. Continue with IV Protonix. Check iron studies and start ferrous iron 3 days to results his back. Patient is scheduled for EGD tomorrow with surgery team and their input is appreciated. Vitamin D stopped and avoid NSAIDs. Review of systems CONSTITUTIONAL: No fever, no malaise, no fatigue. HEENT: No recent visual problems or hearing problems. Denied any sore throat. CARDIOVASCULAR: No orthopnea, PND, no palpitations, no syncope. PULMONARY: No shortness of breath, no cough, no hemoptysis. GASTROINTESTINAL: No diarrhea, no nausea, no vomiting, no abdominal pain. Normoactive bowel sounds. Active Medications Generic Name Dose Route Start Last Admin Trade Name Freq PRN Reason Stop Dose Admin Acetaminophen 650 mg 06/03/23 16:07 Acetaminophen Tab 325 Mg Tab PO Q6HR PRN Mild Pain or Fever > 100.5 Hydrocodone Bitart/Acetaminophen 1 each 06/05/23 11:00 06/06/23 00:53 Hydrocodone/Apap 5-325mg 1 Each Tab PO 1 each Q6HR PRN Administration Pain Atenolol 50 mg 06/06/23 09:00 Atenolol 50 Mg Tab PO DAILY CATHY Bupropion HCl 150 mg 06/04/23 09:00 06/05/23 20:05 Bupropion Xl 150 Mg Tab.Er.24h PO 150 mg TID CATHY Administration Buspirone HCl 30 mg 06/04/23 09:00 06/05/23 20:04 Buspirone Hcl 10 Mg Tab PO 30 mg BID CATHY Administration Ferrous Sulfate 325 mg 06/06/23 07:30 Ferrous Sulfate 325 Mg Tab PO 06/09/23 07:31 BID-W/MEALS CATHY Hydroxyzine HCl 50 mg 06/05/23 16:37 06/06/23 03:31 Hydroxyzine Hcl 25 Mg Tab PO 50 mg QID PRN Administration Anxiety Sodium Bicarbonate 150 ml/ 1,150 mls @ 75 mls/hr 06/04/23 11:45 06/05/23 21:47 Dextrose/Water IV 75 mls/hr .[id number] CATHY Administration Melatonin 10 mg 06/05/23 19:43 06/05/23 20:08 Melatonin 5 Mg Tablet PO 10 mg HS PRN Administration Insomnia Miscellaneous Information 1 each 06/04/23 09:28 Potassium Replacement Protocol 1 Each Misc MISCELLANE DAILY PRN Per Protocol Protocol Naloxone HCl 0.2 mg 06/03/23 16:07 Naloxone 0.4 Mg/Ml 1 Ml Vial IV Q2M PRN Opioid Reversal Nicotine 1 patch 06/04/23 13:30 06/05/23 08:04 Nicotine 21mg/24hr Patch TRANSDERM 1 patch DAILY CATHY Administration Ondansetron HCl 4 mg 06/03/23 16:07 06/05/23 08:14 Ondansetron 4 Mg/2 Ml Vial IVP 4 mg Q8HR PRN Administration Nausea And Vomiting Pantoprazole Sodium 40 mg 06/04/23 10:30 06/05/23 20:04 Pantoprazole 40 Mg/10 Ml Vial IVP 40 mg BID CATHY Administration Sertraline HCl 200 mg 06/04/23 09:00 06/05/23 08:04 Sertraline 100 Mg Tab PO 200 mg DAILY CATHY Administration Objective - Vital Signs Vital signs: Vital Signs Temp 97.8 F 06/05/23 16:00 Pulse 68 06/05/23 16:00 Resp 22 06/05/23 16:00 BP 92/60 06/05/23 16:00 Pulse Ox 96 06/05/23 16:00 FiO2 Intake & Output 06/04/23 06/05/23 06/05/23 18:59 06:59 18:59 Intake Total 110 0 0 Output Total 450 Balance -340 0 0 Weight 70.307 kg Intake: Oral 110 0 0 Output: Urine 450 Other: # Voids 1 1 - Exam GENERAL: The patient is alert and oriented x3, not in any acute distress. Well developed, well nourished. HEENT: Pupils are round and equally reacting to light. EOMI. No scleral icterus. No conjunctival pallor. Normocephalic, atraumatic. No pharyngeal erythema. No thyromegaly. CARDIOVASCULAR: S1 and S2 present. No murmurs, rubs, or gallops. PULMONARY: Chest is clear to auscultation, no wheezing , no crackles. -ABDOMEN: Soft, mild epigastric tenderness with no rebound tendernesstended, normoactive bowel sounds. No palpable organomegaly. vertical midline scar, healed MUSCULOSKELETAL: No joint swelling or deformity. EXTREMITIES: No cyanosis, clubbing, or pedal edema. NEUROLOGICAL: Gross neurological examination did not reveal any focal deficits. SKIN: No rashes. no petechiae. - Labs CBC & Chem 7: 06/05/23 03:50 06/05/23 03:50 Labs: Abnormal Lab Results - Last 24 Hours (Table) 06/04/23 06/05/23 06/05/23 Range/Units 16:08 00:14 03:50 WBC (3.8-10.6) k/uL RBC (3.80-5.40) m/uL Hgb (11.4-16.0) gm/dL Hct (34.0-46.0) % RDW (11.5-15.5) % Plt Count (150-450) k/uL Neutrophils # (1.3-7.7) k/uL Potassium 2.6 L* 3.1 L (3.5-5.1) mmol/L Chloride 118 H (98-107) mmol/L Carbon Dioxide 17 L (22-30) mmol/L Creatinine 1.39 H (0.52-1.04) mg/dL Magnesium 2.5 H (1.6-2.3) mg/dL AST 44 H (14-36) U/L Total Protein 5.2 L (6.3-8.2) g/dL Albumin 2.7 L (3.5-5.0) g/dL 06/05/23 Range/Units 03:50 WBC 13.1 H (3.8-10.6) k/uL RBC 3.26 L (3.80-5.40) m/uL Hgb 9.3 L D (11.4-16.0) gm/dL Hct 28.2 L (34.0-46.0) % RDW 17.6 H (11.5-15.5) % Plt Count 520 H (150-450) k/uL Neutrophils # 8.7 H (1.3-7.7) k/uL Potassium (3.5-5.1) mmol/L Chloride (98-107) mmol/L Carbon Dioxide (22-30) mmol/L Creatinine (0.52-1.04) mg/dL Magnesium (1.6-2.3) mg/dL AST (14-36) U/L Total Protein (6.3-8.2) g/dL Albumin (3.5-5.0) g/dL Assessment and Plan Assessment: Abdominal pain and tenderness 2 weeks Severe hypokalemia, present on admission, improved Kidney injury, improving Worsening anemia possible acute blood loss anemia versus other metabolic acidosis secondary to above Insomnia History of perforated gastric ulcer status post oversew and Ismael;s patch, on 02/2023 complicated by septic shock non-adherence and noncompliance to treatment History of Polysubstane abuse, history of drug overdose hisotory of depression, suicidal thoughts, suicide attempts history of ARDS requiring intubation and mechanical ventilation history of severe rhabdomyolysis and LUIS MIGUEL (recovered), History of MSSA pneumonia and sepsis, history of metabolic encephalopathy (recovered), Obesity nicotine dependence Psychiatric as abuse with marijuana Anemia small left renal stone Plan: Continue with replacing potassium per protocol with telemetry monitoring Continue with aggressive hydration, currently on bicarbonate drip Continue with Protonix twice daily Avoid NSAIDs Monitor creatinine and consult nephrology service Surgery team consult Melatonin is added Degrees atenolol to 50 mg and monitor blood pressure Monitor hemoglobin closely Check iron studies and start replacement therapy Pain management Labs and medication were reviewed.. Continue same treatment. Continue with symptomatic treatment. Resume home medication. Monitor labs and vitals. DVT and GI prophylaxis. Further recommendations as per clinical course of the patient DVT prophylaxis: no Subcutaneous heparin, for suspected gastric ulcer GI Prophylaxis: Ppi Prognosis is guarded
[2023-06-06] MEDS ORDERED: LACTATED RINGERS 1,000 ML IV SCH ×2 (06:24→12:15)
[2023-06-06] MEDS ORDERED: LIDOCAINE 1% (10MG/ML) FOR IV START INTRADERMA PRN (06:24)
[2023-06-06] MEDS ORDERED: HYDROmorphone 0.5 MG/0.5 ML SYRINGE IVP PRN (07:00)
[2023-06-06] MEDS ORDERED: FERROUS SULFATE 325 MG TAB PO SCH (07:30)
[2023-06-06 08:45] LABS: Anisocytosis Slight; Basophils % (A) 0 %; Eosinophils # (A) 0.3 k/uL (0-0.7); Eosinophils % (A) 3 %; HCT 30.5 % (34.0-46.0); Hypochromasia Moderate; Lymphocytes # (A) 3.2 k/uL (1.0-4.8); Lymphocytes % (A) 32 %; MCH 28.9 pg (25.0-35.0); MCHC 32.8 g/dL (31.0-37.0); Monocytes # (A) 0.3 k/uL (0-1.0); Monocytes % (A) 3 %; Neutrophils # (A) 6.1 k/uL (1.3-7.7); Neutrophils % (A) 61 %; Platelet Count 517 k/uL (150-450); Poikilocytosis Slight; RBC 3.46 m/uL (3.80-5.40); RDW 17.2 % (11.5-15.5)
[2023-06-06] MEDS ORDERED: METOPROLOL TARTRATE 12.5 MG TAB PO SCH (09:00)
[2023-06-06] MEDS ORDERED: atenoloL 50 MG TAB PO SCH (09:00)
[2023-06-06 09:06] LABS: African American GFR (CKD) 53 (>60 ml/min/1.73 sqM); Anion Gap 10 mmol/L; Blood Urea Nitrogen 12 mg/dL (7-17); Calcium 9.3 mg/dL (8.4-10.2); Carbon Dioxide 23 mmol/L (22-30); Chloride 112 mmol/L (98-107); Glucose 108 mg/dL (74-99); Magnesium 2.3 mg/dL (1.6-2.3); Non-African American GFR(CKD) 46 (>60 ml/min/1.73 sqM); Potassium 4.1 mmol/L (3.5-5.1); Sodium 145 mmol/L (137-145)
[2023-06-06] MEDS ORDERED: PROPOFOL 10 MG/ML 20 ML VIAL IV ONE (10:10)
[2023-06-06] MEDS ORDERED: ONDANSETRON 4 MG/2 ML VIAL ONE (10:10)
[2023-06-06] MEDS ORDERED: LIDOCAINE 2% (PF) 20 MG/ML 5 ML VIAL ONE (10:10)
[2023-06-06] MEDS ORDERED: fentaNYL (PF) 50 MCG/ML 2 ML AMP ONE (10:10)
[2023-06-06] MEDS ORDERED: IV FLUID CONTINUATION 400 ML IV ONE (10:14)
[2023-06-06 10:28] VITALS: TEMP 97.9
--- NOTE | 2023-06-06 10:28 | P.OP ---
Date of Procedure: 06/06/23 Preoperative Diagnosis: Peptic ulcer disease Postoperative Diagnosis: Duodenal ulcer Procedure(s) Performed: EGD Anesthesia: MAC Surgeon: Vinh Kulkarni Pathology: other (Duodenal ulcer) Condition: stable Disposition: PACU Description of Procedure: A shunt placed on the endoscopy table in the lateral position. She received IV sedation. The gastroscope placed oropharynx passed in the esophagus and then into the stomach. Scope was placed through the pylorus. The first part of the duodenum there is evidence of previous ulcer repair. The suture was seen. There is evidence of ulceration. This was biopsied. There is no active bleeding seen. Scope was brought back and the antrum and this appeared normal. The stomach was visualized. This appeared normal. The GE junction was at 47 is. There was no hiatal hernia. The distal esophagus. Normal. The proximal esophagus appeared normal. Scope withdrawn for patient.
[2023-06-06] MEDS: SERTRALINE 100 MG TAB PO SCH (10:39)
[2023-06-06] MEDS: PANTOPRAZOLE 40 MG/10 ML VIAL IVP SCH (10:39)
[2023-06-06] MEDS: NICOTINE 21MG/24HR PATCH TRANSDERM SCH (10:39)
[2023-06-06] MEDS: busPIRone HCl 10 MG TAB PO SCH (10:39)
[2023-06-06] MEDS: buPROPion XL 150 MG TAB.ER.24H PO SCH (10:40)
[2023-06-06] MEDS: DEXTROSE 5% IN WATER 1,000 ML with SODIUM BICARB (1 MEQ/ML) 150 ML IV SCH (11:46)
--- NOTE | 2023-06-06 12:04 | P.PN ---
Subjective Patient is seen in follow-up for acute kidney injury and hypokalemia. Renal function stable. Acidosis improved. Underwent EGD this morning. Potassium and magnesium normal today. Vital signs are stable. General: No acute distress. HEENT: Head exam is unremarkable. LUNGS: No audible rhonchi or wheezes. HEART: Rate and Rhythm are regular. ABDOMEN: Nontender. EXTREMITITES: No edema. Objective - Vital Signs Vital signs: Vital Signs Temp 97.9 F 06/06/23 09:20 Pulse 60 06/06/23 09:20 Resp 16 06/06/23 09:20 BP 102/64 06/06/23 09:20 Pulse Ox 99 06/06/23 09:20 FiO2 Intake & Output 06/05/23 06/06/23 06/06/23 18:59 06:59 18:59 Intake Total 0 210 Balance 0 210 Intake: IV 210 Invasive Line 2 10 Oral 0 Other: # Voids 2 - Labs CBC & Chem 7: 06/06/23 07:34 06/06/23 07:34 Labs: Abnormal Lab Results - Last 24 Hours (Table) 06/06/23 06/06/23 Range/Units 07:34 07:34 RBC 3.46 L (3.80-5.40) m/uL Hgb 10.0 L (11.4-16.0) gm/dL Hct 30.5 L (34.0-46.0) % RDW 17.2 H (11.5-15.5) % Plt Count 517 H (150-450) k/uL Chloride 112 H (98-107) mmol/L Creatinine 1.37 H (0.52-1.04) mg/dL Glucose 108 H (74-99) mg/dL Assessment and Plan Plan: Assessment: 1. Acute kidney injury secondary to ATN secondary to hypovolemia from vomiting and poor intake. Creatinine was 1.77 on admission and is 1.37 today. No hydronephrosis noted on CAT scan. 2. Hypokalemia from hypovolemia induced renal potassium losses. Also component of poor intake. Magnesium normal. Replaced. Improved. 3. Metabolic acidosis secondary to acute kidney injury and IV fluids. Improving with bicarbonate drip. 4. History of perforated ulcer status post surgical intervention earlier this year. Underwent EGD this morning that showed duodenal ulcer. 5. Hypercalcemia from volume contraction and vitamin D supplementation. Improved. 6. Anemia. Rule out iron deficiency. Plan: Stop bicarb drip. Start LR at 50 mL an hour. Check iron studies. Stopped vitamin D supplementation. Stopped NSAIDs. Avoid nephrotoxins. Continue to monitor renal function and urine output. Replace electrolytes as needed.
--- NOTE | 2023-06-06 12:54 | P.PN ---
Progress Note - Text Progress Note Date: 06/06/23 CHIEF COMPLAINT: Abdominal pain HISTORY OF PRESENT ILLNESS: Patient is status post EGD which had shown a duodenal ulcer. Afebrile. WBC is 10 Hgb 10.0 ASSESSMENT: 1. Duodenal ulcer PLAN: -Patient can be discharged from surgical standpoint -Recommend omeprazole at discharge -No NSAID use Physician Senior Care Provider note has been reviewed by physician. Signing provider agrees with the documented findings, assessment, and plan of care.
[2023-06-06 13:27] VITALS: BP 121/67; PULSE 70; RESP 18
[2023-06-06 15:44] LABS: % Iron Saturation 13.14 (12.00-45.00); Ferritin 83.4 ng/mL (10.0-291.0); Iron 36 UG/DL (50-170); Total Iron Binding Capacity 274 UG/DL (228-460)
--- NOTE | 2023-06-08 16:34 | P.DS ---
Providers Date of admission: 06/03/23 14:06 Attending physician: George Jolly MD Consults: 06/04/23 02:12 Consult Physician Routine Consulting Provider: Charly Gay Consult Reason/Comments: left kid stone, garima, hypokalemia Do you want consulting provider notified?: Yes, Notify in am 06/04/23 10:25 Consult Physician Urgent Consulting Provider: Vinh Kulkarni Consult Reason/Comments: Abdominal pain, history of gastric ulcers Do you want consulting provider notified?: Yes Primary care physician: Leandro Mendoza Hospital Course: Final Diagnosis Abdominal pain and tenderness 2 weeks Severe hypokalemia, present on admission, improved Acute Kidney injury prerenal due to dehydration poor oral intake and ATN. Worsening anemia possible acute blood loss anemia versus other metabolic acidosis secondary to above Insomnia History of perforated gastric ulcer status post oversew and Ismael;s patch, on 02/2023 complicated by septic shock non-adherence and noncompliance to treatment History of Polysubstane abuse, history of drug overdose hisotory of depression, suicidal thoughts, suicide attempts history of ARDS requiring intubation and mechanical ventilation history of severe rhabdomyolysis and GARIMA (recovered), History of MSSA pneumonia and sepsis, history of metabolic encephalopathy (recovered), Obesity nicotine dependence 1/2 PPD smoker Psychiatric as abuse with marijuana Anemia Small left renal stone Discharge Disposition Patient is cleared medically for discharge. Guarded prognosis due to noncompliance with medications and follow up. Discussed smoking cessation. Recommend to avoid NSAIDs. Follow up with general surgery, PCP and nephrology. Repeat labs in 2 to 3 days. Recommending to stop the atenolol and discharge patient on metoprolol 12.5 mg BID. Follow up with PCP Dr. Leandro Mendoza has an appt made for 06/18/23. Follow up with nephrology. Follow up with Dr Kulkarni. Hospital Course This is a pleasant 47 years old female with multiple medical problems including Polysubstane abuse, history of drug overdose, history of ARDS requiring intubation and mechanical ventilation, history of severe rhabdomyolysis and GARIMA (recovered), history of MSSA pneumonia and sepsis, history of metabolic encephalopathy (recovered), hisotory of depression, suicidal thoughts, suicide attempts, obesity. blood clot in brain. Patient presents because of periumbilical abdominal pain 9/10 in severity, nonradiating nonspecific in character associated with frequent nausea vomiting, she states she vomits food but no blood or coffee-ground substance. And she's been passing out over the last 2 weeks, before she came in she passed out 3 times, witnessed by her daughter who 14 years old with no seizure-like activity, no urine or bowel incontinence, no postictal confusion, patient would wake up right away. -Patient says that last February when she was discharged from the hospital she was given his stomach pills which she took for 2 weeks but then since then she stopped taking them. Also she did not follow-up with her PCP Dr. Mendoza since then. On the top of that patient was treated in her pain with Tylenol and ibuprofen. Patient having some dizziness and lightheadedness when she stands up. Hemoglobin 11, mild leukocytosis 12.2. CT of the abdomen and pelvis: No hydronephrosis, 0.5 cm left kidney cyst and small left renal stone. Urine analysis not suspicious of infection. Patient admitted to the hospital with consult to general surgery and nephrology. Was placed on bicarb GTT. Renal function improved. Patient underwent EGD showing duodenal ulcer which was biopsed. Moraima can resume diet and continue on omeprazole BID. BUN 12, Creatinine 1.37 which has improved since admission. She is having some abdominal discomfort however now tolerating diet and asking for discharge. She will continue on PPI BID. Cleared by consultations. Review of Systems Constitutional: Denied any fatigue denied any fever. Cardio vascular: denied any chest pain, palpitations Gastrointestinal: denied any nausea, vomiting, diarrhea Pulmonary: Denied any shortness of breath cough Neurologic denied any new focal deficits All inpatient medications were reviewed and appropriate changes in these medications as dictated in the interval history and assessment and plan. PHYSICAL EXAMINATION: GENERAL: The patient is alert and oriented x3, not in any acute distress. Well developed, well nourished. HEENT: Pupils are round and equally reacting to light. EOMI. No scleral icterus. No conjunctival pallor. Normocephalic, atraumatic. No pharyngeal erythema. No thyromegaly. CARDIOVASCULAR: S1 and S2 present. No murmurs, rubs, or gallops. PULMONARY: Chest is clear to auscultation, no wheezing or crackles. ABDOMEN: Soft, nontender, nondistended, normoactive bowel sounds. No palpable organomegaly. MUSCULOSKELETAL: No joint swelling or deformity. EXTREMITIES: No cyanosis, clubbing, or pedal edema. NEUROLOGICAL: Gross neurological examination did not reveal any focal deficits. SKIN: No rashes. Please see medication reconciliation for a list of current medications. Thank you for allowing us to participate in the care of this patient. The impression and plan of care has been dictated by Ngozi Hussein, Nurse Practitioner as directed. Dr. Manuel MD I have performed a history and physical examination and medical decision making of this patient, discussed the same with the dictator, and agree with the dictators assessment and plan as written, documented as a scribe. Based on total visit time, I have performed more than 50% of this visit. Patient Condition at Discharge: Stable Plan - Discharge Summary Discharge Rx Participant: No New Discharge Prescriptions: New Metoprolol Tartrate [Lopressor] 12.5 mg PO BID #60 tab Nicotine 21Mg/24Hr Patch [Habitrol] 1 patch TRANSDERM DAILY #7 patch Ferrous Sulfate [Iron (65 MG Elemental)] 325 mg PO BID-W/MEALS #60 tab HYDROcodone/APAP 5-325MG [[place] 5-325] 1 each PO Q6HR PRN #12 tab PRN Reason: Pain Omeprazole 20 mg PO BID #60 cap Continue Sertraline HCl [Zoloft] 200 mg PO DAILY busPIRone HCL [Buspar] 30 mg PO BID buPROPion XL [Wellbutrin XL] 150 mg PO TID Cholecalciferol [Vitamin D3 (25 Mcg = 1000 Iu)] 150 mcg PO DAILY Discontinued atenoloL [Tenormin] 100 mg PO DAILY Discharge Medication List Sertraline HCl [Zoloft] 200 mg PO DAILY 11/16/18 [History] busPIRone HCL [Buspar] 30 mg PO BID 01/21/20 [History] buPROPion XL [Wellbutrin XL] 150 mg PO TID 05/16/20 [History] Cholecalciferol [Vitamin D3 (25 Mcg = 1000 Iu)] 150 mcg PO DAILY 06/03/23 [History] Ferrous Sulfate [Iron (65 MG Elemental)] 325 mg PO BID-W/MEALS #60 tab 06/06/23 [Rx] HYDROcodone/APAP 5-325MG [[place] 5-325] 1 each PO Q6HR PRN #12 tab 06/06/23 [Rx] Metoprolol Tartrate [Lopressor] 12.5 mg PO BID #60 tab 06/06/23 [Rx] Nicotine 21Mg/24Hr Patch [Habitrol] 1 patch TRANSDERM DAILY #7 patch 06/06/23 [Rx] Omeprazole 20 mg PO BID #60 cap 06/06/23 [Rx] Follow up Appointment(s)/Referral(s): [facility] [REFERRING] - Leandro Mendoza DO [Primary Care Provider] - 06/18/23 1:30 pm Charly Gay DO [STAFF PHYSICIAN] - 1 Week (Unable to reach office staff. Please call to schedule follow up appoitment) Vinh Kulkarni MD [STAFF PHYSICIAN] - 06/25/23 2:40 pm Ambulatory/Diagnostic Orders: Basic Metabolic Panel [LAB.AMB] Location: None Selected Complete Blood Count w/diff [LAB.AMB] Time Frame: 3 Days, Location: None Selected Magnesium [LAB.AMB] Time Frame: 4 Days, Location: None Selected Patient Instructions/Handouts: Peptic Ulcer (IP), Hypokalemia (IP) Activity/Diet/Wound Care/Special Instructions: Recommend to avoid NSAIDs Tylenol products for pain management Repeat labs in 2 to 3 days Follow up with general surgery, PCP and nephrology Activity limited until follow up. Discharge Disposition: HOME SELF-CARE
== END 2023-06-06 15:18 | disposition home or self-care (01) | DRG 241 ==
LOC: EC 09:45 → 3SCARD 14:06
PROVIDERS: ADMIT Internal Medicine; ATTEND Internal Medicine
PROC: 0DB98ZX Excision of Duodenum, Via Natural or Artificial Opening Endoscopic, Diagnostic (ICD-10-PCS; principal; 2023-06-06 10:35)
DX: K26.9 Duodenal ulcer, unspecified as acute or chronic, without hemorrhage or perforation (principal); F19.10 Other psychoactive substance abuse, uncomplicated; E66.9 Obesity, unspecified; E83.52 Hypercalcemia; Z79.1 Long term (current) use of non-steroidal anti-inflammatories (NSAID); E86.1 Hypovolemia; D62 Acute posthemorrhagic anemia; F41.9 Anxiety disorder, unspecified; N20.0 Calculus of kidney; N17.0 Acute kidney failure with tubular necrosis; E87.6 Hypokalemia; E87.20 Acidosis, unspecified; F17.210 Nicotine dependence, cigarettes, uncomplicated; F32.A Depression, unspecified; F43.10 Post-traumatic stress disorder, unspecified; N28.1 Cyst of kidney, acquired; G47.00 Insomnia, unspecified; Z87.11 Personal history of peptic ulcer disease; Z79.899 Other long term (current) drug therapy; Z86.19 Personal history of other infectious and parasitic diseases; Z91.199 Patient's noncompliance with other medical treatment and regimen due to unspecified reason; Z91.51 Personal history of suicidal behavior; Z88.2 Allergy status to sulfonamides; Z28.310 Unvaccinated for COVID-19; Z28.21 Immunization not carried out because of patient refusal
CPT/HCPCS: 36415; 43235; 74176; 80048; 80053; 80076; 81001; 81025; 82150; 82728; 83540; 83550; 83605; 83690; 83735; 83880; 84132; 85025; 87324; 93005; 96361; 96365; 96366; 96375; 96376; 99285

== ENCOUNTER 2023-06-08 02:39 | Emergency (ER) | payer OTHER ==
[2023-06-08 03:33] VITALS: RESP 18; TEMP 98.5
[2023-06-08] MEDS ORDERED: SODIUM CHLORIDE 0.9% 1,000 ML IV STA (03:36)
[2023-06-08] MEDS ORDERED: ONDANSETRON 4 MG/2 ML VIAL IVP STA (03:36)
[2023-06-08] MEDS ORDERED: MORPHINE SULFATE 4 MG/ML SYRINGE IVP STA (03:37)
[2023-06-08 03:56] LABS: Anisocytosis Slight; Basophils # (A) 0.1 k/uL (0-0.2); Basophils % (A) 0 %; Eosinophils # (A) 0.4 k/uL (0-0.7); Eosinophils % (A) 2 %; HCT 30.7 % (34.0-46.0); HGB 9.7 gm/dL (11.4-16.0); Hypochromasia Moderate; Lymphocytes # (A) 3.4 k/uL (1.0-4.8); Lymphocytes % (A) 21 %; MCH 27.9 pg (25.0-35.0); MCHC 31.5 g/dL (31.0-37.0); MCV 88.8 fL (80.0-100.0); Mean Platelet Volume 8.8; Monocytes # (A) 0.5 k/uL (0-1.0); Monocytes % (A) 3 %; Neutrophils # (A) 11.6 k/uL (1.3-7.7); Neutrophils % (A) 72 %; Platelet Count 537 k/uL (150-450); Poikilocytosis Slight; RBC 3.46 m/uL (3.80-5.40); RDW 17.2 % (11.5-15.5); WBC 16.1 k/uL (3.8-10.6)
[2023-06-08] MEDS ORDERED: HYDROmorphone 1 MG/ML 1 ML SYRINGE IVP STA (04:05)
[2023-06-08 04:18] LABS: ALT 38 U/L (4-34); AST 83 U/L (14-36); African American GFR (CKD) 42 (>60 ml/min/1.73 sqM); Albumin 3.2 g/dL (3.5-5.0); Alkaline Phosphatase 95 U/L (38-126); Anion Gap 14 mmol/L; Blood Urea Nitrogen 18 mg/dL (7-17); Calcium 9.4 mg/dL (8.4-10.2); Carbon Dioxide 19 mmol/L (22-30); Chloride 108 mmol/L (98-107); Glucose 93 mg/dL (74-99); Lipase 36 U/L (23-300); Non-African American GFR(CKD) 36 (>60 ml/min/1.73 sqM); Potassium 3.8 mmol/L (3.5-5.1); Sodium 141 mmol/L (137-145); Total Bilirubin 0.3 mg/dL (0.2-1.3)
[2023-06-08 04:24] LABS: Appearance,Urine Clear (Clear); Bilirubin,Urine Negative (Negative); Blood,Urine Negative (Negative); Color,Urine Yellow; Glucose,Urine (UA) Negative (Negative); Hyaline Casts,Urine 4 /lpf (0-2); Ketones,Urine Negative (Negative); Leukocyte Esterase,Urine Trace (Negative); Mucus,Urine Rare /hpf; Nitrite,Urine Negative (Negative); PH, Urine 6.5 (5.0-8.0); Protein,Urine 1+ (Negative); RBC,Urine 1 /hpf (0-5); Specific Gravity,Urine 1.024 (1.001-1.035); Squamous Epithelial Cell,Urine 5 /hpf (0-4); Urobilinogen,Urine <2.0 mg/dL (<2.0); WBC,Urine 8 /hpf (0-5)
--- NOTE | 2023-06-08 05:42 | ED ---
Abdominal Pain HPI - General Chief Complaint: Abdominal Pain Stated Complaint: Abd and back pain Time Seen by Provider: 06/08/23 02:59 Source: patient Mode of arrival: ambulatory Limitations: no limitations - History of Present Illness Initial Comments: 47-year-old female presents to the emergency department reporting epigastric pain which radiates straight through to her back. States that the pain has been going on for several days. She was hospitalized for this complaint and was discharged yesterday. She did have an EGD performed by Dr. Kulkarni. She was found to have a duodenal ulcer. They started her on omeprazole with no NSAID use. Patient states that she continues to have pain. Denies fevers. Admits to nausea without vomiting. No diarrhea, constipation, black or bloody stools. No other alleviating, precipitating or modifying factors - Related Data Home Medications Medication Instructions Recorded Confirmed Sertraline HCl [Zoloft] 200 mg PO DAILY 11/16/18 06/03/23 busPIRone HCL [Buspar] 30 mg PO BID 01/21/20 06/03/23 buPROPion XL [Wellbutrin XL] 150 mg PO TID 05/16/20 06/03/23 Cholecalciferol [Vitamin D3 (25 150 mcg PO DAILY 06/03/23 06/03/23 Mcg = 1000 Iu)] Previous Rx's Medication Instructions Recorded Ferrous Sulfate [Iron (65 MG 325 mg PO BID-W/MEALS #60 tab 06/06/23 Elemental)] HYDROcodone/APAP 5-325MG [[place] 1 each PO Q6HR PRN #12 tab 06/06/23 5-325] Metoprolol Tartrate [Lopressor] 12.5 mg PO BID #60 tab 06/06/23 Nicotine 21Mg/24Hr Patch [Habitrol] 1 patch TRANSDERM DAILY #7 patch 06/06/23 Omeprazole 20 mg PO BID #60 cap 06/06/23 Allergies Allergy/AdvReac Type Severity Reaction Status Date / Time Sulfa (Sulfonamide Allergy Rash/Hives Verified 06/08/23 02:42 Antibiotics) sulfamethoxazole Allergy Rash/Hives Verified 06/08/23 02:42 [From Bactrim] trimethoprim [From Bactrim] Allergy Rash/Hives Verified 06/08/23 02:42 Review of Systems ROS Statement: Those systems with pertinent positive or pertinent negative responses have been documented in the HPI. ROS Other: All systems not noted in ROS Statement are negative. Past Medical History Past Medical History: Pneumonia, Respiratory Disorder Additional Past Medical History / Comment(s): Polysubstane abuse, history of drug overdose, history of ARDS requiring intubation and mechanical ventilation, history of severe rhabdomyolysis and LUIS MIGUEL (recovered), history of MSSA pneumonia and sepsis, history of metabolic encephalopathy (recovered), history of depression, suicidal thoughts, suicide attempts, obesity. 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 Date of last positivie culture/infection: None MDRO Source:: nare Past Surgical History: No Surgical Hx Reported Additional Past Surgical History / Comment(s): breast biopsy (date unknown), trach placement and peg tube placement for ARDS Past Anesthesia/Blood Transfusion Reactions: No Reported Reaction Past Psychological History: Anxiety, Depression, PTSD Smoking Status: Current every day smoker Past Alcohol Use History: None Reported Past Drug Use History: None Reported - Past Family History Mother Family Medical History: No Reported History General Exam Limitations: no limitations General appearance: alert, in no apparent distress Head exam: Present: atraumatic, normocephalic, normal inspection Eye exam: Present: normal appearance, PERRL, EOMI. Absent: scleral icterus, conjunctival injection, periorbital swelling ENT exam: Present: normal exam, mucous membranes moist Neck exam: Present: normal inspection. Absent: tenderness, meningismus, lymphadenopathy Respiratory exam: Present: normal lung sounds bilaterally. Absent: respiratory distress, wheezes, rales, rhonchi, stridor Cardiovascular Exam: Present: regular rate, normal rhythm, normal heart sounds. Absent: systolic murmur, diastolic murmur, rubs, gallop, clicks GI/Abdominal exam: Present: soft, tenderness (Epigastric), normal bowel sounds. Absent: distended, guarding, rebound, rigid Extremities exam: Present: normal inspection, full ROM, normal capillary refill. Absent: tenderness, pedal edema, joint swelling, calf tenderness Back exam: Present: normal inspection Neurological exam: Present: alert, oriented X3, CN II-XII intact Psychiatric exam: Present: normal affect, normal mood Skin exam: Present: warm, dry, intact, normal color. Absent: rash Course Vital Signs 06/08/23 06/08/23 02:42 06:00 Temperature 98.5 F 98.5 F Pulse Rate 76 81 Respiratory 18 18 Rate Blood Pressure 143/59 126/91 O2 Sat by Pulse 98 98 Oximetry Medical Decision Making - Medical Decision Making Was pt. sent in by a medical professional or institution (MAGY Sheppard, PRODUCER ARBORIST MANAGER, urgent care, hospital, or halfway...) When possible be specific @ -No Did you speak to anyone other than the patient for history (EMS, parent, family, police, friend...)? What history was obtained from this source @ -Mother Did you review nursing and triage notes (agree or disagree)? Why? @ -I reviewed and agree with nursing and triage notes Were old charts reviewed (outside hosp., previous admission, EMS record, old EKG, old radiological studies, urgent care reports/EKG's, halfway records)? Report findings @ -I reviewed the patient's previous progress notes while she was hospitalized for this complaint. I also read the operative report by Dr. Kulkarni Differential Diagnosis (chest pain, altered mental status, abdominal pain women, abdominal pain men, vaginal bleeding, weakness, fever, dyspnea, syncope, headache, dizziness, GI bleed, back pain, seizure, CVA, palpatations, mental health, musculoskeletal)? @ -Differential Abdominal Pain Women: Appendicitis, Cholecystitis, diverticulosis, ischemic bowel, pancreatitis, hepatitis, UTI, gastroenteritis, AAA, incarcerated hernia, bowel obstruction, constipation, inflammatory bowel, hepatitis, peptic ulcer disease, splenic infarction, perforated viscus, vulvitis, ovarian torsion, PID, kidney stone, placenta abruption, this is not meant to be an all-inclusive list EKG interpreted by me (3pts min.). @ -Not done X-rays interpreted by me (1pt min.). @ -Yes and demonstrates no acute process CT interpreted by me (1pt min.). @ -None done U/S interpreted by me (1pt. min.). @ -None done What testing was considered but not performed or refused? (CT, X-rays, U/S, labs)? Why? @ -CT was considered however patient refused What meds were considered but not given or refused? Why? @ -None Did you discuss the management of the patient with other professionals (professionals i.e. MAGY Sheppard, PRODUCER ARBORIST MANAGER, lab, RT, psych nurse, social media sr strategy manager, nutrition educator, teacher, electrical engineering drafting officer, case advocate)? Give summary @ -No Was smoking cessation discussed for >3mins.? @ -No Was critical care preformed (if so, how long)? @ -No Were there social determinants of health that impacted care today? How? (Homelessness, low income, unemployed, alcoholism, drug addiction, trans portation, low edu. Level, literacy, decrease access to med. care, assisted, rehab)? @ -No Was there de-escalation of care discussed even if they declined (Discuss DNR or withdrawal of care, Hospice)? DNR status @ -No What co-morbidities impacted this encounter? (DM, HTN, Smoking, COPD, CAD, Cancer, CVA, ARF, Chemo, Hep., AIDS, mental health diagnosis, sleep apnea, morbid obesity)? @ -chronic pain Was patient admitted / discharged? Hospital course, mention meds given and route, prescriptions, significant lab abnormalities, going to OR and other pertinent info. @ -Upon arrival the patient was placed into room 6. A thorough history and physical exam is performed. IV access is established. Patient was repetitively asking for pain medications by name. Lab studies are conducted. KUB was performed. Patient reevaluated and states that she wants to go home at this time. I we will honor the patient's request. I did review her laboratory studies with her before going. Informed her that her KUB had yet to be read for which she understood and wanted to leave anyways. Patient will be discharged home and needs help with her primary care in 2-4 days. Follow-up with Dr. Lynch within 1 week. Return for any new or worsening symptoms per patient was agreeable to plan she was discharged in stable condition Undiagnosed new problem with uncertain prognosis? @ -No Drug Therapy requiring intensive monitoring for toxicity (Heparin, Nitro, Insulin, Cardizem)? @ -No Were any procedures done? @ -No Diagnosis/symptom? @ -Acute exacerbation of chronic abdominal pain, duodenal ulcer Acute, or Chronic, or Acute on Chronic? @Acute on chronic Uncomplicated (without systemic symptoms) or Complicated (systemic symptoms)? @ -Complicated Side effects of treatment? @ -No Exacerbation, Progression, or Severe Exacerbation? @ -No Poses a threat to life or bodily function? How? (Chest pain, [place], [place], pneumonia, PE, COPD, DKA, ARF, appy, cholecystitis, CVA, Diverticulitis, Homicidal, Suicidal, threat to staff... and all critical care pts) @ -No - Lab Data Result diagrams: 06/08/23 03:42 06/08/23 03:42 Lab Results 06/08/23 06/08/23 06/08/23 Range/Units 03:42 03:42 03:42 WBC 16.1 H (3.8-10.6) k/uL RBC 3.46 L (3.80-5.40) m/uL Hgb 9.7 L (11.4-16.0) gm/dL Hct 30.7 L (34.0-46.0) % MCV 88.8 (80.0-100.0) fL MCH 27.9 (25.0-35.0) pg MCHC 31.5 (31.0-37.0) g/dL RDW 17.2 H (11.5-15.5) % Plt Count 537 H (150-450) k/uL MPV 8.8 Neutrophils % 72 % Lymphocytes % 21 % Monocytes % 3 % Eosinophils % 2 % Basophils % 0 % Neutrophils # 11.6 H (1.3-7.7) k/uL Lymphocytes # 3.4 (1.0-4.8) k/uL Monocytes # 0.5 (0-1.0) k/uL Eosinophils # 0.4 (0-0.7) k/uL Basophils # 0.1 (0-0.2) k/uL Hypochromasia Moderate Poikilocytosis Slight Anisocytosis Slight Sodium 141 (137-145) mmol/L Potassium 3.8 (3.5-5.1) mmol/L Chloride 108 H (98-107) mmol/L Carbon Dioxide 19 L (22-30) mmol/L Anion Gap 14 mmol/L BUN 18 H (7-17) mg/dL Creatinine 1.66 H (0.52-1.04) mg/dL Est GFR (CKD-EPI)AfAm 42 (>60 ml/min/1.73 sqM) Est GFR (CKD-EPI)NonAf 36 (>60 ml/min/1.73 sqM) Glucose 93 (74-99) mg/dL Plasma Lactic Acid Elie (0.7-2.0) mmol/L Calcium 9.4 (8.4-10.2) mg/dL Total Bilirubin 0.3 (0.2-1.3) mg/dL AST 83 H (14-36) U/L ALT 38 H (4-34) U/L Alkaline Phosphatase 95 (38-126) U/L Total Protein 6.0 L (6.3-8.2) g/dL Albumin 3.2 L (3.5-5.0) g/dL Lipase 36 (23-300) U/L Urine Color Yellow Urine Appearance Clear (Clear) Urine pH 6.5 (5.0-8.0) Ur Specific [place] 1.024 (1.001-1.035) Urine Protein 1+ H (Negative) Urine Glucose (UA) Negative (Negative) Urine Ketones Negative (Negative) Urine Blood Negative (Negative) Urine Nitrite Negative (Negative) Urine Bilirubin Negative (Negative) Urine Urobilinogen <2.0 (<2.0) mg/dL Ur Leukocyte Esterase Trace H (Negative) Urine RBC 1 (0-5) /hpf Urine WBC 8 H (0-5) /hpf Ur Squamous Epith Cells 5 H (0-4) /hpf Hyaline Casts 4 H (0-2) /lpf Urine Mucus Rare H (None) /hpf 06/08/23 Range/Units 03:42 WBC (3.8-10.6) k/uL RBC (3.80-5.40) m/uL Hgb (11.4-16.0) gm/dL Hct (34.0-46.0) % MCV (80.0-100.0) fL MCH (25.0-35.0) pg MCHC (31.0-37.0) g/dL RDW (11.5-15.5) % Plt Count (150-450) k/uL MPV Neutrophils % % Lymphocytes % % Monocytes % % Eosinophils % % Basophils % % Neutrophils # (1.3-7.7) k/uL Lymphocytes # (1.0-4.8) k/uL Monocytes # (0-1.0) k/uL Eosinophils # (0-0.7) k/uL Basophils # (0-0.2) k/uL Hypochromasia Poikilocytosis Anisocytosis Sodium (137-145) mmol/L Potassium (3.5-5.1) mmol/L Chloride (98-107) mmol/L Carbon Dioxide (22-30) mmol/L Anion Gap mmol/L BUN (7-17) mg/dL Creatinine (0.52-1.04) mg/dL Est GFR (CKD-EPI)AfAm (>60 ml/min/1.73 sqM) Est GFR (CKD-EPI)NonAf (>60 ml/min/1.73 sqM) Glucose (74-99) mg/dL Plasma Lactic Acid Elie 0.9 (0.7-2.0) mmol/L Calcium (8.4-10.2) mg/dL Total Bilirubin (0.2-1.3) mg/dL AST (14-36) U/L ALT (4-34) U/L Alkaline Phosphatase (38-126) U/L Total Protein (6.3-8.2) g/dL Albumin (3.5-5.0) g/dL Lipase (23-300) U/L Urine Color Urine Appearance (Clear) Urine pH (5.0-8.0) Ur Specific [place] (1.001-1.035) Urine Protein (Negative) Urine Glucose (UA) (Negative) Urine Ketones (Negative) Urine Blood (Negative) Urine Nitrite (Negative) Urine Bilirubin (Negative) Urine Urobilinogen (<2.0) mg/dL Ur Leukocyte Esterase (Negative) Urine RBC (0-5) /hpf Urine WBC (0-5) /hpf Ur Squamous Epith Cells (0-4) /hpf Hyaline Casts (0-2) /lpf Urine Mucus (None) /hpf Disposition Clinical Impression: Abdominal pain Disposition: HOME SELF-CARE Condition: Undetermined Instructions (If sedation given, give patient instructions): Abdominal Pain (ED) Additional Instructions: You are leaving without the formal results of your x-ray. We will call you with any abnormal results. Return should you have any worsening symptoms Is patient prescribed a controlled substance at d/c from ED?: No Referrals: Leandro Mendoza DO [Primary Care Provider] - 1-2 days Vinh Kulkarni MD [STAFF PHYSICIAN] - 1-2 days Time of Disposition: 05:41
[2023-06-08 06:05] VITALS: BP 126/91; PULSE 81
--- NOTE | 2023-06-08 07:14 | XR ---
EXAMINATION TYPE: XR KUB DATE OF EXAM: 06/08/2023 3:59 AM CLINICAL INDICATION:Female, 47 years old with history of abdominal pain; COMPARISON: None. TECHNIQUE: One radiographic view of the abdomen was obtained. FINDINGS: Gaseous bowel loops in the left upper quadrant. The bowel gas pattern is nonspecific withou t dilated loops of small or large bowel. There is no evidence for organomegaly or pneumoperitoneum. The osseous structures are intact. No abnormal calcifications are present. Fecal material and gas ar e demonstrated throughout the colon and rectum. IUD projects over the pelvis. IMPRESSION: Gaseous distention of the colon in left upper abdomen. Nonspecific bowel gas pattern without radiogra phic evidence for acute process.
--- NOTE | 2023-06-16 12:14 | P.GSCN ---
History of Present Illness Consult date: 06/16/23 History of present illness: Patient reports recurrent ruptured gastric ulcer with recent repair in February, 3 months ago at [facility]. She had recent EGD 06/06 10 days ago d emonstrating ulcer. She reports not keeping up with treatment plan. She did not return to [facility] as she reports a nurse was mean to her. She reports not keeping up with her regimen for her ulcer. She was just hospitalized 10 days ago and went the the ER 2 days ago with abdominal films unremarkable. Path demonstrated fungus. Hgb less than 7.0. Epigastric adbominal pain localized. CT reviewed with localized pneumoperitoneam. Plan for resuscitation. Blood for anemia. Keep NPO. Protonix 40 mg IV BID. Will need TPN. Strict NPO. Possible ex lap after correction of electrolyte dyscrasias, anemia, dehydration. Past Medical History Past Medical History: Pneumonia, Respiratory Disorder Additional Past Medical History / Comment(s): Polysubstane abuse, history of drug overdose, history of ARDS requiring intubation and mechanical ventilation, history of severe rhabdomyolysis and LUIS MIGUEL (recovered), history of MSSA pneumonia and sepsis, history of metabolic encephalopathy (recovered), history of depression, suicidal thoughts, suicide attempts, obesity. 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 Year Discovered:: None MDRO Source:: nare Past Surgical History: No Surgical Hx Reported Additional Past Surgical History / Comment(s): breast biopsy (date unknown), trach placement and peg tube placement for ARDS Past Anesthesia/Blood Transfusion Reactions: No Reported Reaction Past Psychological History: Anxiety, Depression, PTSD Smoking Status: Current every day smoker Past Alcohol Use History: None Reported Past Drug Use History: None Reported - Past Family History Mother Family Medical History: No Reported History Medications and Allergies Home Medications Medication Instructions Recorded Confirmed Type Sertraline HCl [Zoloft] 200 mg PO DAILY 11/16/18 06/15/23 History busPIRone HCL [Buspar] 30 mg PO BID 01/21/20 06/15/23 History buPROPion XL [Wellbutrin XL] 150 mg PO TID 05/16/20 06/15/23 History Cholecalciferol [Vitamin D3 (25 150 mcg PO DAILY 06/03/23 06/15/23 History Mcg = 1000 Iu)] Ferrous Sulfate [Iron (65 MG 325 mg PO BID-W/MEALS #60 tab 06/06/23 06/15/23 Rx Elemental)] Metoprolol Tartrate [Lopressor] 12.5 mg PO BID #60 tab 06/06/23 06/15/23 Rx Nicotine 21Mg/24Hr Patch [Habitrol] 1 patch TRANSDERM DAILY #7 patch 06/06/23 06/15/23 Rx Omeprazole 20 mg PO BID #60 cap 06/06/23 06/15/23 Rx Ketorolac [Toradol] 10 mg PO Q6H PRN 06/15/23 06/15/23 History Ondansetron Odt [Zofran Odt] 4 mg PO Q8H PRN 06/15/23 06/15/23 History oxyCODONE HCL [OxyIR] 5 mg PO Q4H PRN 06/15/23 06/15/23 History Allergies Allergy/AdvReac Type Severity Reaction Status Date / Time Sulfa (Sulfonamide Allergy Rash/Hives Verified 06/15/23 13:41 Antibiotics) sulfamethoxazole Allergy Rash/Hives Verified 06/15/23 13:41 [From Bactrim] trimethoprim [From Bactrim] Allergy Rash/Hives Verified 06/15/23 13:41 Surgical - Exam Vital Signs Temp Pulse Resp BP Pulse Ox 98.5 F 76 18 143/59 98 06/08/23 02:42 06/08/23 02:42 06/08/23 02:42 06/08/23 02:42 06/08/23 02:42 Results - Labs 06/08/23 03:42 06/08/23 03:42
== END 2023-06-08 06:00 | disposition home or self-care (01) ==
LOC: EC 02:39
DX: R10.13 Epigastric pain (principal); F41.9 Anxiety disorder, unspecified; F32.A Depression, unspecified; F17.200 Nicotine dependence, unspecified, uncomplicated; Z79.899 Other long term (current) drug therapy; Z88.2 Allergy status to sulfonamides
CPT/HCPCS: 99284 ×2; 96374 ×2; 96375 ×3; 96361 ×3; 36415; 80053; 83605; 83690; 85025; 81001; 74018; J2270; J2405; J1170

== ENCOUNTER 2023-06-15 06:36 | Inpatient (IN) | payer OTHER ==
[2023-06-15] MEDS ORDERED: SODIUM CHLORIDE 0.9% 500 ML 500 ML IV ONE (06:53)
[2023-06-15] MEDS ORDERED: SODIUM CHLORIDE 0.9% 1,000 ML IV ONE ×3 (06:53→08:51)
--- NOTE | 2023-06-15 07:10 | ED ---
General Adult HPI - General Chief complaint: Fall Stated complaint: Fall, Alt Mental Time Seen by Provider: 06/15/23 06:41 Source: patient, family, RN notes reviewed Mode of arrival: wheelchair Limitations: no limitations - History of Present Illness Initial comments: 47-year-old female presents emergency Department with mother for evaluation of intermittent confusion. Mom states that they have been checking on her recently she's been very fatigued, seemed to be confused yesterday. Patient reportedly fell last night she believes she'll loss conscious. Patient denies any pain currently. She denies headache, dizziness, fevers or chills. Patient states she has not back injury no neck pain denies any chest wall pain denies abdominal pain. She denies any nausea vomiting diarrhea constipation. Patient does have history of drug abuse but denies any current abuse. Patient has been seen here recently for abdominal pain and also [facility] and was told that she has a kidney stone. Patient states she has CT recently here and at [facility]. Patient denies any dysuria hematuria no fevers or chills. Patient states she is tolerating oral intake. Patient is currently drinking a slushy in the room and when asked to stop she states that she is thirsty and does not want to stop drinking. - Related Data Home Medications Medication Instructions Recorded Confirmed Sertraline HCl [Zoloft] 200 mg PO DAILY 11/16/18 06/15/23 busPIRone HCL [Buspar] 30 mg PO BID 01/21/20 06/15/23 buPROPion XL [Wellbutrin XL] 150 mg PO TID 05/16/20 06/15/23 Cholecalciferol [Vitamin D3 (25 150 mcg PO DAILY 06/03/23 06/15/23 Mcg = 1000 Iu)] Ketorolac [Toradol] 10 mg PO Q6H PRN 06/15/23 06/15/23 Ondansetron Odt [Zofran Odt] 4 mg PO Q8H PRN 06/15/23 06/15/23 oxyCODONE HCL [OxyIR] 5 mg PO Q4H PRN 06/15/23 06/15/23 Previous Rx's Medication Instructions Recorded Ferrous Sulfate [Iron (65 MG 325 mg PO BID-W/MEALS #60 tab 06/06/23 Elemental)] Metoprolol Tartrate [Lopressor] 12.5 mg PO BID #60 tab 06/06/23 Nicotine 21Mg/24Hr Patch [Habitrol] 1 patch TRANSDERM DAILY #7 patch 06/06/23 Omeprazole 20 mg PO BID #60 cap 06/06/23 Allergies Allergy/AdvReac Type Severity Reaction Status Date / Time Sulfa (Sulfonamide Allergy Rash/Hives Verified 06/15/23 13:41 Antibiotics) sulfamethoxazole Allergy Rash/Hives Verified 06/15/23 13:41 [From Bactrim] trimethoprim [From Bactrim] Allergy Rash/Hives Verified 06/15/23 13:41 Review of Systems ROS Statement: Those systems with pertinent positive or pertinent negative responses have been documented in the HPI. ROS Other: All systems not noted in ROS Statement are negative. Past Medical History Past Medical History: Pneumonia, Respiratory Disorder Additional Past Medical History / Comment(s): Polysubstane abuse, history of drug overdose, history of ARDS requiring intubation and mechanical ventilation, history of severe rhabdomyolysis and LUIS MIGUEL (recovered), history of MSSA pneumonia and sepsis, history of metabolic encephalopathy (recovered), history of depression, suicidal thoughts, suicide attempts, obesity. 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 Date of last positivie culture/infection: None MDRO Source:: nare Past Surgical History: No Surgical Hx Reported Additional Past Surgical History / Comment(s): breast biopsy (date unknown), trach placement and peg tube placement for ARDS Past Anesthesia/Blood Transfusion Reactions: No Reported Reaction Past Psychological History: Anxiety, Depression, PTSD Smoking Status: Current every day smoker Past Alcohol Use History: None Reported Past Drug Use History: None Reported - Past Family History Mother Family Medical History: No Reported History General Exam Limitations: no limitations General appearance: alert, in no apparent distress, other (Pale-appearing) Head exam: Present: atraumatic, normocephalic, normal inspection Eye exam: Present: normal appearance, PERRL, EOMI. Absent: scleral icterus, conjunctival injection, periorbital swelling ENT exam: Present: normal exam, normal oropharynx, mucous membranes moist Neck exam: Present: normal inspection, full ROM. Absent: tenderness, meningismus, lymphadenopathy Respiratory exam: Present: normal lung sounds bilaterally. Absent: respiratory distress, wheezes, rales, rhonchi, stridor Cardiovascular Exam: Present: regular rate, normal rhythm, normal heart sounds. Absent: systolic murmur, diastolic murmur, rubs, gallop, clicks GI/Abdominal exam: Present: soft, normal bowel sounds. Absent: distended, tenderness, guarding, rebound, rigid Back exam: Absent: CVA tenderness (R), CVA tenderness (L) Neurological exam: Present: alert, CN II-XII intact, reflexes normal. Absent: oriented X3, motor sensory deficit Skin exam: Present: warm, dry, intact. Absent: normal color (pale), rash Course Vital Signs 06/15/23 06/15/23 06/15/23 06:37 08:10 08:29 Temperature 97.6 F Pulse Rate 72 68 66 Respiratory 18 18 18 Rate Blood Pressure 82/55 86/51 86/51 O2 Sat by Pulse 98 99 98 Oximetry 06/15/23 06/15/23 06/15/23 08:30 08:45 09:00 Temperature Pulse Rate 71 74 68 Respiratory 18 18 18 Rate Blood Pressure 89/58 79/46 83/54 O2 Sat by Pulse 97 97 99 Oximetry 06/15/23 06/15/23 06/15/23 09:15 09:18 09:30 Temperature Pulse Rate 68 76 76 Respiratory 16 18 16 Rate Blood Pressure 89/58 89/66 89/66 O2 Sat by Pulse 97 98 Oximetry 06/15/23 06/15/23 06/15/23 09:45 10:00 10:15 Temperature Pulse Rate 75 74 73 Respiratory 18 18 19 Rate Blood Pressure 102/74 101/70 97/75 O2 Sat by Pulse 84 L Oximetry 06/15/23 06/15/23 06/15/23 10:30 10:45 11:00 Temperature Pulse Rate 81 75 72 Respiratory 18 16 18 Rate Blood Pressure 92/61 92/68 100/76 O2 Sat by Pulse Oximetry 06/15/23 06/15/23 06/15/23 11:15 11:19 11:30 Temperature 98.2 F Pulse Rate 71 77 75 Respiratory 18 18 22 Rate Blood Pressure 100/74 108/72 108/72 O2 Sat by Pulse 98 95 Oximetry 06/15/23 06/15/23 06/15/23 11:39 11:45 11:59 Temperature 97.9 F 98.1 F Pulse Rate 77 73 75 Respiratory 18 21 18 Rate Blood Pressure 128/78 128/78 110/73 O2 Sat by Pulse 98 96 98 Oximetry 06/15/23 06/15/23 06/15/23 12:00 12:15 12:20 Temperature 98.0 F Pulse Rate 77 82 77 Respiratory 22 16 18 Rate Blood Pressure 103/68 98/66 100/74 O2 Sat by Pulse 96 98 98 Oximetry 06/15/23 06/15/23 06/15/23 12:30 12:40 12:45 Temperature 98.2 F Pulse Rate 70 76 Respiratory 18 18 Rate Blood Pressure 100/74 121/77 102/81 O2 Sat by Pulse 98 96 Oximetry 06/15/23 06/15/23 06/15/23 13:00 13:15 13:30 Temperature Pulse Rate 76 73 72 Respiratory 20 19 19 Rate Blood Pressure 121/77 111/81 100/77 O2 Sat by Pulse 98 97 96 Oximetry 06/15/23 06/15/23 06/15/23 14:00 14:30 15:00 Temperature Pulse Rate 74 76 74 Respiratory 24 23 20 Rate Blood Pressure 114/78 105/57 104/67 O2 Sat by Pulse 94 L 99 96 Oximetry 06/15/23 06/15/23 06/15/23 15:06 15:10 16:04 Temperature 98.0 F 98.2 F 97.9 F Pulse Rate 79 75 77 Respiratory 18 18 18 Rate Blood Pressure 96/73 120/68 122/86 O2 Sat by Pulse 96 97 97 Oximetry 06/15/23 17:56 Temperature Pulse Rate 78 Respiratory 18 Rate Blood Pressure 104/78 O2 Sat by Pulse 98 Oximetry EKG Findings - EKG Comments: EKG Findings:: EKG performed at 6:48 sinus rhythm rate of 71. pr 170 QRS 93 QT/ QTC 395/417 - EKG Results: EKG: interpreted by ERMD Medical Decision Making - Medical Decision Making Was pt. sent in by a medical professional or institution (, PA, BONING ROOM WORKER, urgent care, hospital, or penitentiary...) When possible be specific @ -No Did you speak to anyone other than the patient for history (EMS, parent, family, police, friend...)? What history was obtained from this source @ -Mother providing some past medical history Did you review nursing and triage notes (agree or disagree)? Why? @ -I reviewed and agree with nursing and triage notes Were old charts reviewed (outside hosp., previous admission, EMS record, old EKG, old radiological studies, urgent care reports/EKG's, penitentiary records)? Report findings @ -Reviewed recent EGD, after studies and admission records Differential Diagnosis (chest pain, altered mental status, abdominal pain women, abdominal pain men, vaginal bleeding, weakness, fever, dyspnea, syncope, headache, dizziness, GI bleed, back pain, seizure, CVA, palpatations, mental health, musculoskeletal)? @ -Differential Altered Mental Status: Hypoglycemia, DKA, hypercapnia, ETOH, overdose, CO poisoning, trauma, myxedema coma, HTN encephalopathy, infection, encephalitis, psychosis, intercranial hemorrhage, hepatic encephalopathy, meningitis, CVA, this is not meant to be an all-inclusive list EKG interpreted by me (3pts min.). @ -As above X-rays interpreted by me (1pt min.). @ -Two-view chest x-ray shows no acute pulmonary process CT interpreted by me (1pt min.). @ -CT brain, C-spine showing no evidence intracranial hemorrhage, cervical fracture U/S interpreted by me (1pt. min.). @ -None done What testing was considered but not performed or refused? (CT, X-rays, U/S, labs)? Why? @ -None What meds were considered but not given or refused? Why? @ -None Did you discuss the management of the patient with other professionals (professionals i.e. , PA, BONING ROOM WORKER, lab, RT, psych nurse, social media intern, waiter/waitress formal, teacher, agricultural loan officer, catalytic case operator)? Give summary @ -[Dr. Birch for admission given acute kidney injury, anemia, reports of confusion and dehydration. Was smoking cessation discussed for >3mins.? @ -No Was critical care preformed (if so, how long)? @ -[35 Were there social determinants of health that impacted care today? How? (Homelessness, low income, unemployed, alcoholism, drug addiction, transportation, low edu. Level, literacy, decrease access to med. care, prison, rehab)? @ -No Was there de-escalation of care discussed even if they declined (Discuss DNR or withdrawal of care, Hospice)? DNR status @ -No What co-morbidities impacted this encounter? (DM, HTN, Smoking, COPD, CAD, Cancer, CVA, ARF, Chemo, Hep., AIDS, mental health diagnosis, sleep apnea, morbid obesity)? @ -Drug abuse Was patient admitted / discharged? Hospital course, mention meds given and route, prescriptions, significant lab abnormalities, going to OR and other pertinent info. @ -Admitted patient presented for intermittent confusion, lethargy. Patient's found to have significant anemia at 6.7 with out melanotic stools, hematochezia or hematemesis copremesis. Patient did have significant leukocytosis though there is no obvious source for infection this x-ray showed no acute process urinalysis unremarkable she is afebrile and has no abdominal pain. There is some concern that she has known duodenal ulcer that was recently seen on EGD 8 days ago. There was no bleeding at that time. She was started on omeprazole. Patient is tolerating oral intake without any difficulty. Patient was transfused 1 unit of blood patient was given 2 and half liters of fluid initially based on mild hypotension. Patient will have consults to Dr. Littlejohn, Dr. Nolan and Dr. Kulkarni who recently saw her for her EGD. Undiagnosed new problem with uncertain prognosis? @ -No Drug Therapy requiring intensive monitoring for toxicity (Heparin, Nitro, Insulin, Cardizem)? @ -No Were any procedures done? @ -No Diagnosis/symptom? @ -[Anemia, dehydration, acute kidney injury Acute, or Chronic, or Acute on Chronic? @ -[Acute Uncomplicated (without systemic symptoms) or Complicated (systemic symptoms)? @ -Complicated Side effects of treatment? @ -No Exacerbation, Progression, or Severe Exacerbation? @ -No Poses a threat to life or bodily function? How? (Chest pain, [place], [place], pneumonia, PE, COPD, DKA, ARF, appy, cholecystitis, CVA, Diverticulitis, Homicidal, Suicidal, threat to staff... and all critical care pts) @ -[Yes - Lab Data Result diagrams: 06/16/23 06:04 06/16/23 06:04 Lab Results 06/15/23 06/15/23 06/15/23 Range/Units 08:05 08:05 08:05 WBC 21.4 H (3.8-10.6) k/uL RBC 2.37 L (3.80-5.40) m/uL Hgb 6.7 L* D (11.4-16.0) gm/dL Hct 21.2 L (34.0-46.0) % MCV 89.6 (80.0-100.0) fL MCH 28.3 (25.0-35.0) pg MCHC 31.6 (31.0-37.0) g/dL RDW 16.5 H (11.5-15.5) % Plt Count 473 H (150-450) k/uL MPV 8.1 Neutrophils % 88 % Lymphocytes % 9 % Monocytes % 2 % Eosinophils % 0 % Basophils % 0 % Neutrophils # 18.8 H (1.3-7.7) k/uL Lymphocytes # 1.9 (1.0-4.8) k/uL Monocytes # 0.4 (0-1.0) k/uL Eosinophils # 0.1 (0-0.7) k/uL Basophils # 0.0 (0-0.2) k/uL Hypochromasia Moderate Anisocytosis Slight PT 11.2 (10.0-12.5) sec INR 1.0 (<1.2) APTT 23.9 (22.0-30.0) sec Sodium (137-145) mmol/L Potassium (3.5-5.1) mmol/L Chloride (98-107) mmol/L Carbon Dioxide (22-30) mmol/L Anion Gap mmol/L BUN (7-17) mg/dL Creatinine (0.52-1.04) mg/dL Est GFR (CKD-EPI)AfAm (>60 ml/min/1.73 sqM) Est GFR (CKD-EPI)NonAf (>60 ml/min/1.73 sqM) Glucose (74-99) mg/dL Calcium (8.4-10.2) mg/dL Total Bilirubin (0.2-1.3) mg/dL AST (14-36) U/L ALT (4-34) U/L Alkaline Phosphatase (38-126) U/L Ammonia (<30) umol/L Troponin I (0.000-0.034) ng/mL Total Protein (6.3-8.2) g/dL Albumin (3.5-5.0) g/dL Urine Color Colorless Urine Appearance Clear (Clear) Urine pH 6.5 (5.0-8.0) Ur Specific [place] 1.014 (1.001-1.035) Urine Protein Trace H (Negative) Urine Glucose (UA) Negative (Negative) Urine Ketones Trace H (Negative) Urine Blood Negative (Negative) Urine Nitrite Negative (Negative) Urine Bilirubin Negative (Negative) Urine Urobilinogen <2.0 (<2.0) mg/dL Ur Leukocyte Esterase Negative (Negative) Urine Opiates Screen Detected H (NotDetected) Ur Oxycodone Screen Detected H (NotDetected) Urine Methadone Screen Not Detected (NotDetected) Ur Barbiturates Screen Not Detected (NotDetected) U Tricyclic Antidepress Not Detected (NotDetected) Ur Phencyclidine Scrn Not Detected (NotDetected) Ur Amphetamines Screen Not Detected (NotDetected) U Methamphetamines Scrn Not Detected (NotDetected) U Benzodiazepines Scrn Detected H (NotDetected) Urine Cocaine Screen Not Detected (NotDetected) U Marijuana (THC) Screen Detected H (NotDetected) Ur Drug Screen Comment SEE COMMENT Serum Alcohol mg/dL Blood Type Blood Type Recheck Bld Type Recheck Status Antibody Screen Crossmatch Spec Expiration Date 06/15/23 06/15/23 06/15/23 Range/Units 08:05 08:05 08:05 WBC (3.8-10.6) k/uL RBC (3.80-5.40) m/uL Hgb (11.4-16.0) gm/dL Hct (34.0-46.0) % MCV (80.0-100.0) fL MCH (25.0-35.0) pg MCHC (31.0-37.0) g/dL RDW (11.5-15.5) % Plt Count (150-450) k/uL MPV Neutrophils % % Lymphocytes % % Monocytes % % Eosinophils % % Basophils % % Neutrophils # (1.3-7.7) k/uL Lymphocytes # (1.0-4.8) k/uL Monocytes # (0-1.0) k/uL Eosinophils # (0-0.7) k/uL Basophils # (0-0.2) k/uL Hypochromasia Anisocytosis PT (10.0-12.5) sec INR (<1.2) APTT (22.0-30.0) sec Sodium 139 (137-145) mmol/L Potassium 3.4 L (3.5-5.1) mmol/L Chloride 108 H (98-107) mmol/L Carbon Dioxide 15 L (22-30) mmol/L Anion Gap 16 mmol/L BUN 47 H (7-17) mg/dL Creatinine 2.29 H (0.52-1.04) mg/dL Est GFR (CKD-EPI)AfAm 28 (>60 ml/min/1.73 sqM) Est GFR (CKD-EPI)NonAf 25 (>60 ml/min/1.73 sqM) Glucose 140 H (74-99) mg/dL Calcium 8.2 L (8.4-10.2) mg/dL Total Bilirubin 0.3 (0.2-1.3) mg/dL AST 23 (14-36) U/L ALT 17 (4-34) U/L Alkaline Phosphatase 93 (38-126) U/L Ammonia 14 (<30) umol/L Troponin I <0.012 (0.000-0.034) ng/mL Total Protein 5.1 L (6.3-8.2) g/dL Albumin 2.6 L (3.5-5.0) g/dL Urine Color Urine Appearance (Clear) Urine pH (5.0-8.0) Ur Specific [place] (1.001-1.035) Urine Protein (Negative) Urine Glucose (UA) (Negative) Urine Ketones (Negative) Urine Blood (Negative) Urine Nitrite (Negative) Urine Bilirubin (Negative) Urine Urobilinogen (<2.0) mg/dL Ur Leukocyte Esterase (Negative) Urine Opiates Screen (NotDetected) Ur Oxycodone Screen (NotDetected) Urine Methadone Screen (NotDetected) Ur Barbiturates Screen (NotDetected) U Tricyclic Antidepress (NotDetected) Ur Phencyclidine Scrn (NotDetected) Ur Amphetamines Screen (NotDetected) U Methamphetamines Scrn (NotDetected) U Benzodiazepines Scrn (NotDetected) Urine Cocaine Screen (NotDetected) U Marijuana (THC) Screen (NotDetected) Ur Drug Screen Comment Serum Alcohol <10 mg/dL Blood Type Blood Type Recheck Bld Type Recheck Status Antibody Screen Crossmatch Spec Expiration Date 06/15/23 Range/Units 09:35 WBC (3.8-10.6) k/uL RBC (3.80-5.40) m/uL Hgb (11.4-16.0) gm/dL Hct (34.0-46.0) % MCV (80.0-100.0) fL MCH (25.0-35.0) pg MCHC (31.0-37.0) g/dL RDW (11.5-15.5) % Plt Count (150-450) k/uL MPV Neutrophils % % Lymphocytes % % Monocytes % % Eosinophils % % Basophils % % Neutrophils # (1.3-7.7) k/uL Lymphocytes # (1.0-4.8) k/uL Monocytes # (0-1.0) k/uL Eosinophils # (0-0.7) k/uL Basophils # (0-0.2) k/uL Hypochromasia Anisocytosis PT (10.0-12.5) sec INR (<1.2) APTT (22.0-30.0) sec Sodium (137-145) mmol/L Potassium (3.5-5.1) mmol/L Chloride (98-107) mmol/L Carbon Dioxide (22-30) mmol/L Anion Gap mmol/L BUN (7-17) mg/dL Creatinine (0.52-1.04) mg/dL Est GFR (CKD-EPI)AfAm (>60 ml/min/1.73 sqM) Est GFR (CKD-EPI)NonAf (>60 ml/min/1.73 sqM) Glucose (74-99) mg/dL Calcium (8.4-10.2) mg/dL Total Bilirubin (0.2-1.3) mg/dL AST (14-36) U/L ALT (4-34) U/L Alkaline Phosphatase (38-126) U/L Ammonia (<30) umol/L Troponin I (0.000-0.034) ng/mL Total Protein (6.3-8.2) g/dL Albumin (3.5-5.0) g/dL Urine Color Urine Appearance (Clear) Urine pH (5.0-8.0) Ur Specific [place] (1.001-1.035) Urine Protein (Negative) Urine Glucose (UA) (Negative) Urine Ketones (Negative) Urine Blood (Negative) Urine Nitrite (Negative) Urine Bilirubin (Negative) Urine Urobilinogen (<2.0) mg/dL Ur Leukocyte Esterase (Negative) Urine Opiates Screen (NotDetected) Ur Oxycodone Screen (NotDetected) Urine Methadone Screen (NotDetected) Ur Barbiturates Screen (NotDetected) U Tricyclic Antidepress (NotDetected) Ur Phencyclidine Scrn (NotDetected) Ur Amphetamines Screen (NotDetected) U Methamphetamines Scrn (NotDetected) U Benzodiazepines Scrn (NotDetected) Urine Cocaine Screen (NotDetected) U Marijuana (THC) Screen (NotDetected) Ur Drug Screen Comment Serum Alcohol mg/dL Blood Type O Positive Blood Type Recheck O Pos Bld Type Recheck Status No Antibody Screen NEGATIVE Crossmatch See Detail Spec Expiration Date 06/18/20232334 Critical Care Time Critical Care Time: Yes Total Critical Care Time: 35 Disposition Clinical Impression: Drug abuse, Anemia, LUIS MIGUEL (acute kidney injury), Dehydration Disposition: ADMITTED IP TO THIS [facility] Condition: Poor Time of Disposition: 11:29
--- NOTE | 2023-06-15 07:27 | CT ---
EXAMINATION TYPE: CT brain wo con CT DLP: 1095.4 mGycm, Automated exposure control for dose reduction was used. DATE OF EXAM: 06/15/2023 7:10 AM COMPARISON: 07/11/2021.. CLINICAL INDICATION:Female, 47 years old with history of fall, Altered mental status, fall TECHNIQUE: Brain: Axial CT images of the brain were obtained with coronal and sagittal reformats created and rev iewed. Contrast used: None. Oral contrast used: None. FINDINGS: Brain: Extra-axial spaces: No abnormal extra-axial fluid collections. Ventricular system: Within normal limits Cerebral parenchyma: Right frontal lobe asymmetric white matter change which is unchanged from 022. No acute intraparenchymal hemorrhage or mass effect. The greenberg-white junction is well differenti ated. Cerebellum: Unremarkable. Mass effect: No evidence of midline shift. Intracranial vasculature: unremarkable Soft tissues: Normal. Calvarium/osseous structures: No depressed skull fracture. Paranasal sinuses and mastoid air cells: Mild scattered paranasal sinus disease. Visualized orbits: Orbital contents are intact. IMPRESSION: 1. No acute intracranial process. 2. Stable right frontal lobe periventricular white matter change suspected at least 2021.
--- NOTE | 2023-06-15 07:28 | XR ---
EXAMINATION TYPE: XR chest 2V DATE OF EXAM: 06/15/2023 7:13 AM CLINICAL INDICATION:Female, 47 years old with history of altered mental status; [facility] COMPARISON: Chest radiographs from 01/30/2020. TECHNIQUE: XR chest 2V Frontal and lateral views of the chest. FINDINGS: Lungs/Pleura: There is no evidence of pleural effusion, focal consolidation, or pneumothorax. Pulmonary vascularity: Unremarkable. Heart/mediastinum: Cardiomediastinal silhouette is unremarkable. Musculoskeletal: No acute osseous pathology. IMPRESSION: No acute cardiopulmonary disease/process.
[2023-06-15 09:05] LABS: Anisocytosis Slight; Basophils % (A) 0 %; Eosinophils # (A) 0.1 k/uL (0-0.7); Eosinophils % (A) 0 %; HCT 21.2 % (34.0-46.0); Hypochromasia Moderate; Lymphocytes # (A) 1.9 k/uL (1.0-4.8); Lymphocytes % (A) 9 %; MCH 28.3 pg (25.0-35.0); MCHC 31.6 g/dL (31.0-37.0); MCV 89.6 fL (80.0-100.0); Mean Platelet Volume 8.1; Monocytes # (A) 0.4 k/uL (0-1.0); Monocytes % (A) 2 %; Neutrophils # (A) 18.8 k/uL (1.3-7.7); Neutrophils % (A) 88 %; Platelet Count 473 k/uL (150-450); RBC 2.37 m/uL (3.80-5.40); RDW 16.5 % (11.5-15.5); WBC 21.4 k/uL (3.8-10.6)
[2023-06-15 09:14] LABS: Partial Thromboplastin Time 23.9 sec (22.0-30.0); Prothrombin Time 11.2 sec (10.0-12.5)
[2023-06-15 09:16] LABS: ALT 17 U/L (4-34); AST 23 U/L (14-36); African American GFR (CKD) 28 (>60 ml/min/1.73 sqM); Albumin 2.6 g/dL (3.5-5.0); Alcohol <10 mg/dL; Alkaline Phosphatase 93 U/L (38-126); Anion Gap 16 mmol/L; Blood Urea Nitrogen 47 mg/dL (7-17); Calcium 8.2 mg/dL (8.4-10.2); Carbon Dioxide 15 mmol/L (22-30); Chloride 108 mmol/L (98-107); Glucose 140 mg/dL (74-99); Non-African American GFR(CKD) 25 (>60 ml/min/1.73 sqM); Potassium 3.4 mmol/L (3.5-5.1); Sodium 139 mmol/L (137-145); Total Bilirubin 0.3 mg/dL (0.2-1.3); Total Protein 5.1 g/dL (6.3-8.2)
[2023-06-15 09:20] LABS: HGB 6.7 gm/dL (11.4-16.0)
[2023-06-15 09:47] LABS: Appearance,Urine Clear (Clear); Bilirubin,Urine Negative (Negative); Blood,Urine Negative (Negative); Color,Urine Colorless; Glucose,Urine (UA) Negative (Negative); Ketones,Urine Trace (Negative); Leukocyte Esterase,Urine Negative (Negative); Nitrite,Urine Negative (Negative); PH, Urine 6.5 (5.0-8.0); Protein,Urine Trace (Negative); Specific Gravity,Urine 1.014 (1.001-1.035); Urobilinogen,Urine <2.0 mg/dL (<2.0)
[2023-06-15 10:09] LABS: Amphetamine Screen,Urine Not Detected (NotDetected); Barbiturate Screen,Urine Not Detected (NotDetected); Benzodiazepines Screen,Urine Detected (NotDetected); Cocaine Screen,Urine Not Detected (NotDetected); Methadone Screen, Urine Not Detected (NotDetected); Opiate Screen,Urine Detected (NotDetected); Oxycodone Screen, Urine Detected (NotDetected); Phencyclidine Screen,Urine Not Detected (NotDetected); Tricyclic Antidepressant,Urine Not Detected (NotDetected); Urn Cannabinoid Scrn Detected (NotDetected)
[2023-06-15] MEDS ORDERED: PANTOPRAZOLE 40 MG/10 ML VIAL IVP STA (10:44)
[2023-06-15] MEDS ORDERED: NALOXONE 0.4 MG/ML 1 ML VIAL IV PRN (11:30)
--- NOTE | 2023-06-15 16:43 | P.HPIM ---
History of Present Illness H&P Date: 06/15/23 Chief Complaint: Mental status change 47-year-old female, history of polysubstance abuse, presents emergency Department with mother for evaluation of intermittent confusion. Mom states that they have been checking on her recently she's been very fatigued, seemed to be confused yesterday. Patient reportedly fell last night she believes she lost conscious. Patient denies any pain currently. Patient does have history of drug abuse but denies any current abuse. Patient has been seen here recently for abdominal pain and also Mathews urine and was told that she has a kidney stone. Patient denies any dysuria hematuria no fevers or chills denies any alcohol use. EKG Findings:: EKG performed at 6:48 sinus rhythm rate of 71. pr 170 QRS 93 QT/ QTC 395/417 Blood work completed and negative. WBC 21.4, hemoglobin of 6.7 and platelet count of 473, sodium 139, potassium 3.4, BUN/creatinine of 47/2.29 and blood glucose of 140 Urine drug screen is positive for opiates, benzodiazepines and marijuana Review of Systems ROS unobtainable: due to mental status Past Medical History Past Medical History: Pneumonia, Respiratory Disorder Additional Past Medical History / Comment(s): Polysubstane abuse, history of drug overdose, history of ARDS requiring intubation and mechanical ventilation, history of severe rhabdomyolysis and LUIS MIGUEL (recovered), history of MSSA pneumonia and sepsis, history of metabolic encephalopathy (recovered), history of dep ression, suicidal thoughts, suicide attempts, obesity. 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 Date of last positivie culture/infection: None MDRO Source:: nare Past Surgical History: No Surgical Hx Reported Additional Past Surgical History / Comment(s): breast biopsy (date unknown), trach placement and peg tube placement for ARDS Past Anesthesia/Blood Transfusion Reactions: No Reported Reaction Past Psychological History: Anxiety, Depression, PTSD Smoking Status: Current every day smoker Past Alcohol Use History: None Reported Past Drug Use History: None Reported - Past Family History Mother Family Medical History: No Reported History Medications and Allergies Home Medications Medication Instructions Recorded Confirmed Type Sertraline HCl [Zoloft] 200 mg PO DAILY 11/16/18 06/15/23 History busPIRone HCL [Buspar] 30 mg PO BID 01/21/20 06/15/23 History buPROPion XL [Wellbutrin XL] 150 mg PO TID 05/16/20 06/15/23 History Cholecalciferol [Vitamin D3 (25 150 mcg PO DAILY 06/03/23 06/15/23 History Mcg = 1000 Iu)] Ferrous Sulfate [Iron (65 MG 325 mg PO BID-W/MEALS #60 tab 06/06/23 06/15/23 Rx Elemental)] Metoprolol Tartrate [Lopressor] 12.5 mg PO BID #60 tab 06/06/23 06/15/23 Rx Nicotine 21Mg/24Hr Patch [Habitrol] 1 patch TRANSDERM DAILY #7 patch 06/06/23 06/15/23 Rx Omeprazole 20 mg PO BID #60 cap 06/06/23 06/15/23 Rx Ketorolac [Toradol] 10 mg PO Q6H PRN 06/15/23 06/15/23 History Ondansetron Odt [Zofran Odt] 4 mg PO Q8H PRN 06/15/23 06/15/23 History oxyCODONE HCL [OxyIR] 5 mg PO Q4H PRN 06/15/23 06/15/23 History Allergies Allergy/AdvReac Type Severity Reaction Status Date / Time Sulfa (Sulfonamide Allergy Rash/Hives Verified 06/15/23 13:41 Antibiotics) sulfamethoxazole Allergy Rash/Hives Verified 06/15/23 13:41 [From Bactrim] trimethoprim [From Bactrim] Allergy Rash/Hives Verified 06/15/23 13:41 Physical Exam Vitals: Vital Signs Temp Pulse Resp BP Pulse Ox 06/15/23 16:04 97.9 F 77 18 122/86 97 06/15/23 15:10 98.2 F 75 18 120/68 97 06/15/23 15:06 98.0 F 79 18 96/73 96 06/15/23 15:00 74 20 104/67 96 06/15/23 14:30 76 23 105/57 99 06/15/23 14:00 74 24 114/78 94 L 06/15/23 13:30 72 19 100/77 96 06/15/23 13:15 73 19 111/81 97 06/15/23 13:00 76 20 121/77 98 06/15/23 12:45 102/81 06/15/23 12:40 98.2 F 76 18 121/77 96 06/15/23 12:30 70 18 100/74 98 06/15/23 12:20 98.0 F 77 18 100/74 98 06/15/23 12:15 82 16 98/66 98 06/15/23 12:00 77 22 103/68 96 06/15/23 11:59 98.1 F 75 18 110/73 98 06/15/23 11:45 73 21 128/78 96 06/15/23 11:39 97.9 F 77 18 128/78 98 06/15/23 11:30 75 22 108/72 95 06/15/23 11:19 98.2 F 77 18 108/72 98 06/15/23 11:15 71 18 100/74 06/15/23 11:00 72 18 100/76 06/15/23 10:45 75 16 92/68 06/15/23 10:30 81 18 92/61 06/15/23 10:15 73 19 97/75 06/15/23 10:00 74 18 101/70 06/15/23 09:45 75 18 102/74 84 L 06/15/23 09:30 76 16 89/66 06/15/23 09:18 76 18 89/66 98 06/15/23 09:15 68 16 89/58 97 06/15/23 09:00 68 18 83/54 99 06/15/23 08:45 74 18 79/46 97 06/15/23 08:30 71 18 89/58 97 06/15/23 08:29 66 18 86/51 98 06/15/23 08:10 68 18 86/51 99 06/15/23 06:37 97.6 F 72 18 82/55 98 Intake and Output 06/15/23 06/15/23 06/15/23 06:59 14:59 22:59 Intake Total 0 304 Balance 0 304 Intake: Blood Product 0 304 Rc Pheresis 2 As3 Unit 0 304 [id number] Other: Weight 70.307 kg General appearance: alert, in no apparent distress, other (Pale-appearing) Head exam: Present: atraumatic, normocephalic, normal inspection Eye exam: Present: normal appearance, PERRL, EOMI. Absent: scleral icterus, conjunctival injection, periorbital swelling ENT exam: Present: normal exam, normal oropharynx, mucous membranes moist Neck exam: Present: normal inspection, full ROM. Absent: tenderness, meningismus, lymphadenopathy Respiratory exam: Present: normal lung sounds bilaterally. Absent: respiratory distress, wheezes, rales, rhonchi, stridor Cardiovascular Exam: Present: regular rate, normal rhythm, normal heart sounds. Absent: systolic murmur, diastolic murmur, rubs, gallop, clicks GI/Abdominal exam: Present: soft, normal bowel sounds. Absent: distended, tenderness, guarding, rebound, rigid Neurological exam: Present: alert, CN II-XII intact, reflexes normal. Absent: oriented X3, motor sensory deficit Skin exam: Present: warm, dry, intact. Absent: normal color, rash Results CBC & Chem 7: 06/15/23 08:05 06/15/23 08:05 Labs: Abnormal Lab Results - Last 24 Hours (Table) 06/15/23 06/15/23 06/15/23 Range/Units 08:05 08:05 08:05 WBC 21.4 H (3.8-10.6) k/uL RBC 2.37 L (3.80-5.40) m/uL Hgb 6.7 L* D (11.4-16.0) gm/dL Hct 21.2 L (34.0-46.0) % RDW 16.5 H (11.5-15.5) % Plt Count 473 H (150-450) k/uL Neutrophils # 18.8 H (1.3-7.7) k/uL Potassium 3.4 L (3.5-5.1) mmol/L Chloride 108 H (98-107) mmol/L Carbon Dioxide 15 L (22-30) mmol/L BUN 47 H (7-17) mg/dL Creatinine 2.29 H (0.52-1.04) mg/dL Glucose 140 H (74-99) mg/dL Calcium 8.2 L (8.4-10.2) mg/dL Total Protein 5.1 L (6.3-8.2) g/dL Albumin 2.6 L (3.5-5.0) g/dL Urine Protein Trace H (Negative) Urine Ketones Trace H (Negative) Urine Opiates Screen Detected H (NotDetected) Ur Oxycodone Screen Detected H (NotDetected) U Benzodiazepines Scrn Detected H (NotDetected) U Marijuana (THC) Screen Detected H (NotDetected) Crossmatch 06/15/23 Range/Units 09:35 WBC (3.8-10.6) k/uL RBC (3.80-5.40) m/uL Hgb (11.4-16.0) gm/dL Hct (34.0-46.0) % RDW (11.5-15.5) % Plt Count (150-450) k/uL Neutrophils # (1.3-7.7) k/uL Potassium (3.5-5.1) mmol/L Chloride (98-107) mmol/L Carbon Dioxide (22-30) mmol/L BUN (7-17) mg/dL Creatinine (0.52-1.04) mg/dL Glucose (74-99) mg/dL Calcium (8.4-10.2) mg/dL Total Protein (6.3-8.2) g/dL Albumin (3.5-5.0) g/dL Urine Protein (Negative) Urine Ketones (Negative) Urine Opiates Screen (NotDetected) Ur Oxycodone Screen (NotDetected) U Benzodiazepines Scrn (NotDetected) U Marijuana (THC) Screen (NotDetected) Crossmatch See Detail Assessment and Plan Assessment: 1. Altered mental status; likely multifactorial related to polysubstance abuse versus AK I/dehydration - We will monitor neuro checks per protocol; consult neurology 2. Acute renal injury/dehydration - BUN/creatinine elevated at 47/2.29 -- We will start patient on IV fluid hydration form of normal saline at a rate of 100 mL an hour; monitor strict KTAERINE's, daily weights, renal function and electrolytes - Avoid nephrotoxins and hypotension 3. Severe anemia; patient received 2 units packed RBCs in ED; we will monitor H&H every 6 hours with plans to transfuse if hemoglobin is less than 7.0; stool occult blood on stool specimens; Protonix 40 mg IV every 12 hours -- Consult general surgery 4. Electrolyte imbalance; supplemented in ED; monitor electrolytes closely and supplement as needed 5. Polysubstance abuse; urine drug screen is positive for opiates, benzodiazepines and marijuana 6. Hypertension; metoprolol 12.5 mg twice a day 7. Depression/anxiety; patient takes Wellbutrin, Zoloft and BuSpar DVT prophylaxis; SCDs only CODE STATUS; full code
[2023-06-15 16:45] LABS: Anisocytosis Slight; HCT 23.3 % (34.0-46.0); HGB 7.4 gm/dL (11.4-16.0); Hypochromasia Moderate; MCH 28.4 pg (25.0-35.0); MCHC 31.9 g/dL (31.0-37.0); MCV 88.9 fL (80.0-100.0); Mean Platelet Volume 8.4; Platelet Count 427 k/uL (150-450); RBC 2.62 m/uL (3.80-5.40); RDW 16.5 % (11.5-15.5); WBC 19.7 k/uL (3.8-10.6)
[2023-06-15] MEDS: PANTOPRAZOLE 40 MG/10 ML VIAL IV SCH (20:21)
[2023-06-15] MEDS ORDERED: IOPAMIDOL CONTRAST (ORAL USE) VIAL PO PRN (22:26)
[2023-06-15] MEDS: AMPICILLIN-SULBACTAM 3 GM in SODIUM CHLORIDE 0.9% 100 ML IVPB SCH (23:24)
--- NOTE | 2023-06-16 07:26 | P.CONS ---
History of Present Illness - Reason for Consult Consult date: 06/15/23 - History of Present Illness Patient is a 47-year-old female with a past medical history significant for polysubstance abuse history of drug overdose pneumonia patient was brought into the ER by her mother for evaluation of intermittent confusion the patient mother mentioned that they have been checking on her recently she has been very fatigued seem to be confused yesterday and apparently the patient did have a fall yesterday patient denies any recent history of drug abuse patient was brought into the hospital on presented to the hospital the patient was afebrile and the patient did not recall having any fever or chills at home patient denies having any headache or URI symptoms she knows that she is in the hospital denies any chest pain or shortness visit has some occasional cough some nausea but no vomiting she did have some vague abdominal pain was unable to quantify it any further, the patient denies having any diarrhea or other constipation and no urinary symptoms patient presented to the hospital was afebrile and no fever recorded subsequently patient was not tachycardic hypotensive or hypoxic, patient was noticed to have white count of 21.4 he was also noticed to be anemic with hemoglobin 6.7 is getting blood transfusion did have elevated BUN and creatinine enzymes are normal urine drug screen has been positive for opiates oxycodone benzos and marijuana patient did have a CT of the brain no acute intracranial process stable right frontal lobe periventricular white matter changes chest x-ray no acute cardiopulmonary disease process, infectious disease was consulted because of her elevated white count Past Medical History Past Medical History: Pneumonia, Respiratory Disorder Additional Past Medical History / Comment(s): Polysubstane abuse, history of drug overdose, history of ARDS requiring intubation and mechanical ventilation, history of severe rhabdomyolysis and LUIS MIGUEL (recovered), history of MSSA pneumonia and sepsis, history of metabolic encephalopathy (recovered), history of depression, suicidal thoughts, suicide attempts, obesity. 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 Year Discovered:: None MDRO Source:: nare Past Surgical History: No Surgical Hx Reported Additional Past Surgical History / Comment(s): breast biopsy (date unknown), trach placement and peg tube placement for ARDS Past Anesthesia/Blood Transfusion Reactions: No Reported Reaction Past Psychological History: Anxiety, Depression, PTSD Smoking Status: Current every day smoker Past Alcohol Use History: None Reported Past Drug Use History: None Reported - Past Family History Mother Family Medical History: No Reported History Medications and Allergies Home Medications Medication Instructions Recorded Confirmed Type Sertraline HCl [Zoloft] 200 mg PO DAILY 11/16/18 06/15/23 History busPIRone HCL [Buspar] 30 mg PO BID 01/21/20 06/15/23 History buPROPion XL [Wellbutrin XL] 150 mg PO TID 05/16/20 06/15/23 History Cholecalciferol [Vitamin D3 (25 150 mcg PO DAILY 06/03/23 06/15/23 History Mcg = 1000 Iu)] Ferrous Sulfate [Iron (65 MG 325 mg PO BID-W/MEALS #60 tab 06/06/23 06/15/23 Rx Elemental)] Metoprolol Tartrate [Lopressor] 12.5 mg PO BID #60 tab 06/06/23 06/15/23 Rx Nicotine 21Mg/24Hr Patch [Habitrol] 1 patch TRANSDERM DAILY #7 patch 06/06/23 06/15/23 Rx Omeprazole 20 mg PO BID #60 cap 06/06/23 06/15/23 Rx Ketorolac [Toradol] 10 mg PO Q6H PRN 06/15/23 06/15/23 History Ondansetron Odt [Zofran Odt] 4 mg PO Q8H PRN 06/15/23 06/15/23 History oxyCODONE HCL [OxyIR] 5 mg PO Q4H PRN 06/15/23 06/15/23 History Allergies Allergy/AdvReac Type Severity Reaction Status Date / Time Sulfa (Sulfonamide Allergy Rash/Hives Verified 06/15/23 13:41 Antibiotics) sulfamethoxazole Allergy Rash/Hives Verified 06/15/23 13:41 [From Bactrim] trimethoprim [From Bactrim] Allergy Rash/Hives Verified 06/15/23 13:41 Physical Exam Vitals: Vital Signs Temp Pulse Resp BP Pulse Ox 06/15/23 13:30 72 19 100/77 96 06/15/23 13:15 73 19 111/81 97 06/15/23 13:00 76 20 121/77 98 06/15/23 12:45 102/81 06/15/23 12:40 98.2 F 76 18 121/77 96 06/15/23 12:30 70 18 100/74 98 06/15/23 12:20 98.0 F 77 18 100/74 98 06/15/23 12:15 82 16 98/66 98 06/15/23 12:00 77 22 103/68 96 06/15/23 11:59 98.1 F 75 18 110/73 98 06/15/23 11:45 73 21 128/78 96 06/15/23 11:39 97.9 F 77 18 128/78 98 06/15/23 11:30 75 22 108/72 95 06/15/23 11:19 98.2 F 77 18 108/72 98 06/15/23 11:15 71 18 100/74 06/15/23 11:00 72 18 100/76 06/15/23 10:45 75 16 92/68 06/15/23 10:30 81 18 92/61 06/15/23 10:15 73 19 97/75 06/15/23 10:00 74 18 101/70 06/15/23 09:45 75 18 102/74 84 L 06/15/23 09:30 76 16 89/66 06/15/23 09:18 76 18 89/66 98 06/15/23 09:15 68 16 89/58 97 06/15/23 09:00 68 18 83/54 99 06/15/23 08:45 74 18 79/46 97 06/15/23 08:30 71 18 89/58 97 06/15/23 08:29 66 18 86/51 98 06/15/23 08:10 68 18 86/51 99 06/15/23 06:37 97.6 F 72 18 82/55 98 Intake and Output 06/14/23 06/15/23 06/15/23 22:59 06:59 14:59 Intake Total 0 Balance 0 Intake: Blood Product 0 Rc Pheresis 2 As3 Unit 0 [id number] Other: Weight 70.307 kg Results CBC & Chem 7: 06/15/23 16:12 06/15/23 08:05 Labs: Abnormal Lab Results - Last 24 Hours (Table) 06/15/23 06/15/23 06/15/23 Range/Units 08:05 08:05 08:05 WBC 21.4 H (3.8-10.6) k/uL RBC 2.37 L (3.80-5.40) m/uL Hgb 6.7 L* D (11.4-16.0) gm/dL Hct 21.2 L (34.0-46.0) % RDW 16.5 H (11.5-15.5) % Plt Count 473 H (150-450) k/uL Neutrophils # 18.8 H (1.3-7.7) k/uL Potassium 3.4 L (3.5-5.1) mmol/L Chloride 108 H (98-107) mmol/L Carbon Dioxide 15 L (22-30) mmol/L BUN 47 H (7-17) mg/dL Creatinine 2.29 H (0.52-1.04) mg/dL Glucose 140 H (74-99) mg/dL Calcium 8.2 L (8.4-10.2) mg/dL Total Protein 5.1 L (6.3-8.2) g/dL Albumin 2.6 L (3.5-5.0) g/dL Urine Protein Trace H (Negative) Urine Ketones Trace H (Negative) Urine Opiates Screen Detected H (NotDetected) Ur Oxycodone Screen Detected H (NotDetected) U Benzodiazepines Scrn Detected H (NotDetected) U Marijuana (THC) Screen Detected H (NotDetected) Crossmatch 06/15/23 Range/Units 09:35 WBC (3.8-10.6) k/uL RBC (3.80-5.40) m/uL Hgb (11.4-16.0) gm/dL Hct (34.0-46.0) % RDW (11.5-15.5) % Plt Count (150-450) k/uL Neutrophils # (1.3-7.7) k/uL Potassium (3.5-5.1) mmol/L Chloride (98-107) mmol/L Carbon Dioxide (22-30) mmol/L BUN (7-17) mg/dL Creatinine (0.52-1.04) mg/dL Glucose (74-99) mg/dL Calcium (8.4-10.2) mg/dL Total Protein (6.3-8.2) g/dL Albumin (3.5-5.0) g/dL Urine Protein (Negative) Urine Ketones (Negative) Urine Opiates Screen (NotDetected) Ur Oxycodone Screen (NotDetected) U Benzodiazepines Scrn (NotDetected) U Marijuana (THC) Screen (NotDetected) Crossmatch See Detail Assessment and Plan Plan: 1-patient with leukocytosis in this patient who did have a history of polysubstance abuse and has been brought into the hospital with mental status changes noticed to have elevated white count as well as anemia requiring transfusion initial workup including a chest x-ray UA has been negative patient complaining of some abdominal pain mild tenderness with anemia concern for possible abdominal source 2-patient with renal insufficiency and high risk of nephrotoxicity 3-sulfa allergy 4-we will obtain blood cultures CRP and procalcitonin and check a CT of abdominal pelvis with oral contrast only 5-empirically cover the patient with Unasyn while waiting for the workup to be completed We will follow on clinical condition and cultures to further adjust medication if needed Thank you for this consultation we will follow the patient along with you Dictation was produced using [employer] dictation software. please excuse any grammatical, word or spelling errors. Time with Patient: Greater than 30
[2023-06-16] MEDS: PANTOPRAZOLE 40 MG/10 ML VIAL IV SCH ×2 (08:22→20:58)
[2023-06-16] MEDS: AMPICILLIN-SULBACTAM 3 GM in SODIUM CHLORIDE 0.9% 100 ML IVPB SCH ×3 (08:22→20:15)
--- NOTE | 2023-06-16 09:23 | CT ---
EXAMINATION TYPE: CT abdomen pelvis wo con CT DLP: 449.1 mGycm, Automated exposure control for dose reduction was used. DATE OF EXAM: 06/16/2023 8:53 AM COMPARISON: CT abdomen pelvis most recent from 06/03/2023. CLINICAL INDICATION:Female, 47 years old with history of leukocytosis/abd pain; Leukocytosis, abdomin al pain TECHNIQUE: Axial CT abdomen pelvis wo con;Sagittal and coronal reformats were created on a separate workstation. Contrast used: mL of , (none if empty) Oral contrast used: without Oral Contrast (none if empty) FINDINGS: LOWER CHEST: Unremarkable ABDOMEN LIVER: Unremarkable GALLBLADDER AND BILE DUCTS: Nondistended with circumferential wall thickening with some fat stranding changes. PANCREAS: Unremarkable. SPLEEN: Unremarkable. ADRENAL GLANDS: Unremarkable. KIDNEYS AND URETERS: No evidence of hydronephrosis or renal calculus. The ureters are unremarkable. PELVIS BLADDER: Unremarkable REPRODUCTIVE: Intrauterine device seen within the endometrium. ABDOMEN & PELVIS STOMACH AND BOWEL: No evidence of bowel obstruction. Few scattered colonic diverticula. PERITONEUM/RETROPERITONEUM: Free air around the gastric lumen best appreciated on series 3 image 30. This is thought to be coming from and lesser curvature of the stomach series 6 image 22. Pocket of ai r/gas measures roughly 4.6 x 1.8 x 3.7 cm. Pocket of gas may be phlegmonous change/ingested contents. VASCULATURE: No evidence of aortic aneurysm. Scattered calcifications of the arterial vasculature. MUSCULOSKELETAL: No acute osseous abnormalities LYMPH NODES: No gross evidence for lymphadenopathy. SOFT TISSUE/ABDOMINAL WALL: Unremarkable IMPRESSION: 1. Limited exam without IV or oral contrast, there is upper abdominal inflammation thought to be sec ondary to perforated gastric ulcer. Surgical consultation recommended. 2. Circumferential wall thickening of the gallbladder with hyperemia likely secondary to #1. Findings communicated to Dr. Nadege Littlejohn/group of Leonor Birch MD on 06/16/2023 9:[address] Maldonado Flores.
[2023-06-16 10:36] LABS: ALT 11 U/L (8-44); AST 13 U/L (13-35); Albumin 2.3 g/dL (3.8-4.9); Albumin/Globulin Ratio 1.28 Ratio (1.60-3.17); Alkaline Phosphatase 73 U/L (41-126); BUN/Creat Ratio 20.62 Ratio (12.00-20.00); Blood Urea Nitrogen 26.8 mg/dL (9.0-27.0); Calcium 7.9 mg/dL (8.7-10.3); Carbon Dioxide 15.9 mmol/L (21.6-31.8); Chloride 113 mmol/L (96-109); Globulin 1.8 g/dL (1.6-3.3); Glucose 80 mg/dL (70-110); Potassium 2.8 mmol/L (3.5-5.5); Sodium 141 mmol/L (135-145); Total Bilirubin <0.2 mg/dL (0.3-1.2); Total Protein 4.1 g/dL (6.2-8.2)
[2023-06-16] MEDS: FLUCONAZOLE IN NACL,ISO-OSM 200 MG in SALINE 1 100ML.BAG IVPB SCH (10:43)
[2023-06-16 10:58] LABS: Basophils # (A) 0.04 X 10*3/uL (0.00-0.10); Basophils % (A) 0.3 %; Eosinophils # (A) 0.23 X 10*3/uL (0.04-0.35); Eosinophils % (A) 1.8 %; HCT 17.5 % (37.2-46.3); HGB 5.6 g/dL (12.0-15.0); Hypochromasia (M) 2+; Lymphocytes # (A) 2.27 X 10*3/uL (0.90-5.00); Lymphocytes % (A) 18.2 %; MCH 27.5 pg (27.0-32.0); MCV 85.8 FL (80.0-97.0); Mean Platelet Volume 10.2 FL (9.5-12.2); Monocytes % (A) 4.8 %; NRBC Per 100 WBC 0 X 10*3/uL (0.00-0.01); Neutrophils # (A) 9.24 X 10*3/uL (1.80-7.70); Neutrophils % (A) 74.4 %; Platelet Count 313 X 10*3/uL (140-440); RBC 2.04 X 10*6/uL (4.10-5.20); RDW 17.2 % (11.5-14.5); WBC 12.44 X 10*3/uL (4.50-10.00)
--- NOTE | 2023-06-16 11:54 | P.NPCON ---
History of Present Illness - Reason for Consult acute renal failure - History of Present Illness Patient is a 47-year-old female with history of polysubstance abuse and previous history of acute kidney injury and severe rhabdo my lysis and ATN. Patient is admitted to the hospital with complaints of increased weakness and multiple falls. Patient states she may not have been eating much and was brought in by her parents. Hemoglobin was 6.7 and dropped to 5.6 today. Serum creatinine was 2.29 and decreased to 1.3 today. Blood pressure has been low The patient has been voiding. No nausea vomiting diarrhea noted currently. Review of Systems As per HPI. Past Medical History Past Medical History: Pneumonia, Respiratory Disorder Additional Past Medical History / Comment(s): Polysubstane abuse, history of drug overdose, history of ARDS requiring intubation and mechanical ventilation, history of severe rhabdomyolysis and LUIS MIGUEL (recovered), history of MSSA pneumonia and sepsis, history of metabolic encephalopathy (recovered), history of depression, suicidal thoughts, suicide attempts, obesity. 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 Date of last positivie culture/infection: None MDRO Source:: nare Past Surgical History: No Surgical Hx Reported Additional Past Surgical History / Comment(s): breast biopsy (date unknown), trach placement and peg tube placement for ARDS Past Anesthesia/Blood Transfusion Reactions: No Reported Reaction Past Psychological History: Anxiety, Depression, PTSD Smoking Status: Current every day smoker Past Alcohol Use History: None Reported Past Drug Use History: None Reported - Past Family History Mother Family Medical History: No Reported History Medications and Allergies Home Medications Medication Instructions Recorded Confirmed Type Sertraline HCl [Zoloft] 200 mg PO DAILY 11/16/18 06/15/23 History busPIRone HCL [Buspar] 30 mg PO BID 01/21/20 06/15/23 History buPROPion XL [Wellbutrin XL] 150 mg PO TID 05/16/20 06/15/23 History Cholecalciferol [Vitamin D3 (25 150 mcg PO DAILY 06/03/23 06/15/23 History Mcg = 1000 Iu)] Ferrous Sulfate [Iron (65 MG 325 mg PO BID-W/MEALS #60 tab 06/06/23 06/15/23 Rx Elemental)] Metoprolol Tartrate [Lopressor] 12.5 mg PO BID #60 tab 06/06/23 06/15/23 Rx Nicotine 21Mg/24Hr Patch [Habitrol] 1 patch TRANSDERM DAILY #7 patch 06/06/23 06/15/23 Rx Omeprazole 20 mg PO BID #60 cap 06/06/23 06/15/23 Rx Ketorolac [Toradol] 10 mg PO Q6H PRN 06/15/23 06/15/23 History Ondansetron Odt [Zofran Odt] 4 mg PO Q8H PRN 06/15/23 06/15/23 History oxyCODONE HCL [OxyIR] 5 mg PO Q4H PRN 06/15/23 06/15/23 History Allergies Allergy/AdvReac Type Severity Reaction Status Date / Time Sulfa (Sulfonamide Allergy Rash/Hives Verified 06/15/23 13:41 Antibiotics) sulfamethoxazole Allergy Rash/Hives Verified 06/15/23 13:41 [From Bactrim] trimethoprim [From Bactrim] Allergy Rash/Hives Verified 06/15/23 13:41 Physical Exam Vitals: Vital Signs Temp Pulse Pulse Resp BP BP Pulse Ox 06/16/23 08:37 98 06/16/23 08:00 72 17 06/16/23 07:30 98.7 F 72 17 111/76 99 06/16/23 02:00 98.2 F 77 20 92/63 94 L 06/15/23 19:16 98.5 F 74 20 122/84 99 06/15/23 17:56 78 18 104/78 98 06/15/23 16:04 97.9 F 77 18 122/86 97 06/15/23 15:10 98.2 F 75 18 120/68 97 06/15/23 15:06 98.0 F 79 18 96/73 96 06/15/23 15:00 74 20 104/67 96 06/15/23 14:30 76 23 105/57 99 06/15/23 14:00 74 24 114/78 94 L 06/15/23 13:30 72 19 100/77 96 06/15/23 13:15 73 19 111/81 97 06/15/23 13:00 76 20 121/77 98 06/15/23 12:45 102/81 06/15/23 12:40 98.2 F 76 18 121/77 96 06/15/23 12:30 70 18 100/74 98 06/15/23 12:20 98.0 F 77 18 100/74 98 06/15/23 12:15 82 16 98/66 98 06/15/23 12:00 77 22 103/68 96 06/15/23 11:59 98.1 F 75 18 110/73 98 Intake and Output 06/15/23 06/16/23 06/16/23 22:59 06:59 14:59 Intake Total 424 Balance 424 Intake: Oral 120 Blood Product 304 Rc Pheresis 2 As3 Unit 304 [id number] Other: Voiding Method Toilet Toilet # Voids 3 1 Patient is awake, comfortable, no acute distress Examination of the heart S1 and S2 Examination of the lungs bilateral breath sounds are heard Abdomen is soft nontender Examination lower extremity shows no evidence of edema MULE SPINNER exam shows patient is moving all 4 extremities. Results - Lab Results Most recent lab results Calcium 7.9 mg/dL (8.7-10.3) L 06/16/23 06:04 06/16/23 06:04 06/16/23 06:04 Assessment and Plan Assessment: 1. Acute kidney injury, ATN secondary to hypotension and severe anemia as well as volume depletion. Currently improved. UA is benign. 2. History of polysubstance abuse with current drug screen positive for opiates and oxycodone benzos and marijuana 3. Anemia with history of black stools. Status post packed RBCs 4. Hypokalemia associated with decreased oral intake 5. GI bleed 6. Metabolic acidosis secondary to acute kidney injury Plan: Add IV fluids Repeat labs in a.m. Check iron profile Add oral sodium bicarb Replace potassium Check magnesium Thank you for the consultation. We will continue to follow the patient with you during her hospitalization.
[2023-06-16] MEDS ORDERED: SODIUM BICARBONATE TAB 650 MG TAB PO SCH (12:00)
[2023-06-16] MEDS ORDERED: LACTATED RINGERS 1,000 ML IV SCH (12:00)
[2023-06-16] MEDS: POTASSIUM CHLORIDE ER 20 MEQ TAB.ER PO SCH ×2 (12:15→15:20)
--- NOTE | 2023-06-16 12:15 | P.GSCN ---
History of Present Illness Consult date: 06/16/23 History of present illness: CHIEF COMPLAINT: Abdominal pain HISTORY OF PRESENT ILLNESS: The patient is a 47 year old female admitted with acute kidney injury, anemia and abdominal pain. She complains of epigastric abdominal pain intermittent for several months. Patient reports prior ruptured duodenal ulcer with recent repair via exploratory laparotomy in February, 3 months ago at the [facility] ([facility]). She had recent EGD 06/06, 10 days ago demonstrating duodenal ulcer. She reports not keeping up with treatment plan for her ulcer. She did not return to [facility] as she reports a nurse was mean to her. She reports not keeping up with her regimen for her ulcer. She was just hospitalized 10 days ago. She went the the ER 2 days ago with abdominal films unremarkable. She had recent computed tomography scan demonstrating possible perforation of gastric ulcer. Gen. surgery is consulted for her abdominal pain. PAST MEDICAL HISTORY: See list and reviewed PAST SURGICAL HISTORY: See list and reviewed MEDICATIONS: See list and reviewed ALLERGIES: See list and reviewed SOCIAL HISTORY: See list and reviewed FAMILY HISTORY: See list and reviewed REVIEW OF ORGAN SYSTEMS: CONSTITUTIONAL: No fevers or chills. Prior obesity with weight loss. EYES: Denies any trouble with vision. No glasses. HEENT: No difficulties with hearing. No nosebleeds. History of tracheostomy. RESPIRATORY: Prior pneumonia. Mechanical ventilation. Past tobacco abuse disorder. CARDIOVASCULAR: Denies any chest pain, palpitations, or recent heart attacks. Has hypertensive heart disease. GASTROINTESTINAL: Chronic abdominal pain with duodenal ulcer recently 3 months ago. Has gastroesophageal reflux disease. GENITOURINARY: Prior rhabdomyolysis and chronic kidney disease. NEUROLOGICAL: Denies any numbness or tingling along the distal extremities. No seizure disorders or headaches. MUSCULOSKELETAL: Denies any back pain, stiffness or joint arthritis. SKIN: No current skin cancer. No rash. PSYCHIATRIC: History of polysubstance abuse. Prior drug overdose. History of metabolic encephalopathy. Has depressive disorder. History of suicidal attempts. Past posttraumatic stress disorder. ENDOCRINE: Denies current thyroid disorders. Denies any blood sugar glucose intolerance. HEME/LYMPHATIC: Denies any lumps and bumps around the neck. No recent deep venous thrombosis. ALLERGY/IMMUNOLOGY: No immunoglobulin therapy. No immune deficiencies. BREAST: Denies current breast lumps, pain or nipple discharge. PHYSICAL EXAM: VITALS: Reviewed CONSTITUTIONAL: Well developed and in no acute distress. EYES: Conjuctivae without sclera icterus. Extraocular movements grossly intact. HEAD, EARS, NOSE, THROAT: Moist buccal mucosa. Head is atraumatic, n ormocephalic. Hears conversational speech. No nasal drainage. NECK: Supple. No JV distention. No thyroidomegaly. RESPIRATORY: Non-labored respirations and equal bilateral excursions. No gross wheezes. CARDIOVASCULAR: Palpable 2+ radial pulses. ABDOMEN: Well healed upper midline incision. No peritonitis. LYMPH: No neck lymphadenopathy. MUSCULOSKELETAL: No clubbing cyanosis or edema SKIN: Warm and well perfused with good skin turgor. NEUROLOGIC: Cranial nerves II through XII grossly intact. No focal or lateralizing signs. PSYCH: Appropriate affect. Alert and oriented to person, place and time. Displays appropriate insight. CLINCAL LABS: Reviewed. WBC elevated over 21,000, leukocytosis. Anemia, hemoglobin 6.7, prior 9.7. Elevated creatinine 2.29 down to 1.3. IMAGING: Independently reviewed. CT of the abdomen and pelvis reviewed with localized pneumoperitoneam at the epigastrium at the duodenum and retroperitoneum. This is my independent interpretation. RADIOLOGY: Report reviewed. CT of the abdomen and pelvis demonstrates diverticulosis, localized free air at lesser curvature of the stomach, with thickening of the gallbladder. RECORDS: previous old records reviewed. EGD 06/02/2024 demonstrates duodenal ulcer with yeast. Final Pathologic Diagnosis DUODENAL ULCER, BIOPSY: Fibrinopurulent ulcer debris with bacterial and fungal organisms present, possibly representing contaminating carryover from oropharynx. Assessment limited due to lack of viable mucosa, clinically correlate. ASSESSMENT: 1. Duodenal ulcer, recurrent 2. Localized pneumoperitoneum 3. Acute anemia 4. Acute kidney injury PLAN: 1. Plan for resuscitation. 2. Blood transfusions for anemia. 3. Keep strict NPO. 4. Protonix 40 mg IV BID. 5. Will need TPN. 6. Strict NPO. 7. Possible ex lap after correction of electrolyte dyscrasias, anemia, dehydration. Thank you for this kind consultation. Past Medical History Past Medical History: Pneumonia, Respiratory Disorder Additional Past Medical History / Comment(s): Polysubstane abuse, history of drug overdose, history of ARDS requiring intubation and mechanical ventilation, history of severe rhabdomyolysis and LUIS MIGUEL (recovered), history of MSSA pneumonia and sepsis, history of metabolic encephalopathy (recovered), history of depression, suicidal thoughts, suicide attempts, obesity. 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 Year Discovered:: None MDRO Source:: nare Past Surgical History: No Surgical Hx Reported Additional Past Surgical History / Comment(s): breast biopsy (date unknown), trach placement and peg tube placement for ARDS Past Anesthesia/Blood Transfusion Reactions: No Reported Reaction Past Psychological History: Anxiety, Depression, PTSD Smoking Status: Current every day smoker Past Alcohol Use History: None Reported Past Drug Use History: None Reported - Past Family History Mother Family Medical History: No Reported History Medications and Allergies Home Medications Medication Instructions Recorded Confirmed Type Sertraline HCl [Zoloft] 200 mg PO DAILY 11/16/18 06/15/23 History busPIRone HCL [Buspar] 30 mg PO BID 01/21/20 06/15/23 History buPROPion XL [Wellbutrin XL] 150 mg PO TID 05/16/20 06/15/23 History Cholecalciferol [Vitamin D3 (25 150 mcg PO DAILY 06/03/23 06/15/23 History Mcg = 1000 Iu)] Ferrous Sulfate [Iron (65 MG 325 mg PO BID-W/MEALS #60 tab 06/06/23 06/15/23 Rx Elemental)] Metoprolol Tartrate [Lopressor] 12.5 mg PO BID #60 tab 06/06/23 06/15/23 Rx Nicotine 21Mg/24Hr Patch [Habitrol] 1 patch TRANSDERM DAILY #7 patch 06/06/23 06/15/23 Rx Omeprazole 20 mg PO BID #60 cap 06/06/23 06/15/23 Rx Ketorolac [Toradol] 10 mg PO Q6H PRN 06/15/23 06/15/23 History Ondansetron Odt [Zofran Odt] 4 mg PO Q8H PRN 06/15/23 06/15/23 History oxyCODONE HCL [OxyIR] 5 mg PO Q4H PRN 06/15/23 06/15/23 History Allergies Allergy/AdvReac Type Severity Reaction Status Date / Time Sulfa (Sulfonamide Allergy Rash/Hives Verified 06/15/23 13:41 Antibiotics) sulfamethoxazole Allergy Rash/Hives Verified 06/15/23 13:41 [From Bactrim] trimethoprim [From Bactrim] Allergy Rash/Hives Verified 06/15/23 13:41 Surgical - Exam Vital Signs Temp Pulse Resp BP Pulse Ox 97.6 F 72 18 82/55 98 06/15/23 06:37 06/15/23 06:37 06/15/23 06:37 06/15/23 06:37 06/15/23 06:37 Results - Labs 06/16/23 20:30 06/16/23 20:30 Abnormal Lab Results - Last 24 Hours (Table) 06/15/23 06/15/23 06/16/23 Range/Units 09:35 16:12 06:04 WBC 19.7 H (3.8-10.6) k/uL RBC 2.62 L (3.80-5.40) m/uL Hgb 7.4 L (11.4-16.0) gm/dL Hct 23.3 L (34.0-46.0) % RDW 16.5 H (11.5-15.5) % Immature Gran # (0.00-0.04) X 10*3/uL Neutrophils # (1.80-7.70) X 10*3/uL Hypochromasia (manual) Potassium (3.5-5.5) mmol/L Chloride (96-109) mmol/L Carbon Dioxide (21.6-31.8) mmol/L Anion Gap (4.00-12.00) mmol/L Est GFR (CKD-EPI) (>=60) BUN/Creatinine Ratio (12.00-20.00) Ratio Calcium (8.7-10.3) mg/dL Total Bilirubin (0.3-1.2) mg/dL C-Reactive Protein (0.00-0.80) mg/dL Total Protein (6.2-8.2) g/dL Albumin (3.8-4.9) g/dL Albumin/Globulin Ratio (1.60-3.17) Ratio Procalcitonin 0.45 H (0.02-0.09) ng/mL Crossmatch See Detail 06/16/23 06/16/23 Range/Units 06:04 06:04 WBC 12.44 H (3.8-10.6) k/uL RBC 2.04 L (3.80-5.40) m/uL Hgb 5.6 A* (11.4-16.0) gm/dL Hct 17.5 A* (34.0-46.0) % RDW 17.2 H (11.5-15.5) % Immature Gran # 0.06 H (0.00-0.04) X 10*3/uL Neutrophils # 9.24 H (1.80-7.70) X 10*3/uL Hypochromasia (manual) 2+ A Potassium 2.8 L (3.5-5.5) mmol/L Chloride 113 H (96-109) mmol/L Carbon Dioxide 15.9 L (21.6-31.8) mmol/L Anion Gap 12.10 H (4.00-12.00) mmol/L Est GFR (CKD-EPI) 51 L (>=60) BUN/Creatinine Ratio 20.62 H (12.00-20.00) Ratio Calcium 7.9 L (8.7-10.3) mg/dL Total Bilirubin <0.2 L (0.3-1.2) mg/dL C-Reactive Protein 10.50 H (0.00-0.80) mg/dL Total Protein 4.1 L (6.2-8.2) g/dL Albumin 2.3 L (3.8-4.9) g/dL Albumin/Globulin Ratio 1.28 L (1.60-3.17) Ratio Procalcitonin (0.02-0.09) ng/mL Crossmatch Diabetes panel 06/16/23 Range/Units 06:04 Sodium 141 (135-145) mmol/L Potassium 2.8 L (3.5-5.5) mmol/L Chloride 113 H (96-109) mmol/L Carbon Dioxide 15.9 L (21.6-31.8) mmol/L BUN 26.8 (9.0-27.0) mg/dL Creatinine 1.3 (0.6-1.5) mg/dL Glucose 80 (70-110) mg/dL Calcium 7.9 L (8.7-10.3) mg/dL AST 13 (13-35) U/L ALT 11 (8-44) U/L Alkaline Phosphatase 73 (41-126) U/L Total Protein 4.1 L (6.2-8.2) g/dL Albumin 2.3 L (3.8-4.9) g/dL Calcium panel 06/16/23 Range/Units 06:04 Calcium 7.9 L (8.7-10.3) mg/dL Albumin 2.3 L (3.8-4.9) g/dL Pituitary panel 06/16/23 Range/Units 06:04 Sodium 141 (135-145) mmol/L Potassium 2.8 L (3.5-5.5) mmol/L Chloride 113 H (96-109) mmol/L Carbon Dioxide 15.9 L (21.6-31.8) mmol/L BUN 26.8 (9.0-27.0) mg/dL Creatinine 1.3 (0.6-1.5) mg/dL Glucose 80 (70-110) mg/dL Calcium 7.9 L (8.7-10.3) mg/dL Adrenal panel 06/16/23 Range/Units 06:04 Sodium 141 (135-145) mmol/L Potassium 2.8 L (3.5-5.5) mmol/L Chloride 113 H (96-109) mmol/L Carbon Dioxide 15.9 L (21.6-31.8) mmol/L BUN 26.8 (9.0-27.0) mg/dL Creatinine 1.3 (0.6-1.5) mg/dL Glucose 80 (70-110) mg/dL Calcium 7.9 L (8.7-10.3) mg/dL Total Bilirubin <0.2 L (0.3-1.2) mg/dL AST 13 (13-35) U/L ALT 11 (8-44) U/L Alkaline Phosphatase 73 (41-126) U/L Total Protein 4.1 L (6.2-8.2) g/dL Albumin 2.3 L (3.8-4.9) g/dL
[2023-06-16] MEDS: POTASSIUM CHLORIDE 20 MEQ in WATER FOR INJECTION 1 100ML.BAG IVPB SCH ×2 (12:42→15:00)
--- NOTE | 2023-06-16 12:49 | P.CNPUL ---
History of Present Illness Consult date: 06/16/23 Requesting physician: Leonor Birch Reason for consult: other Chief complaint: Perforated gastric ulcer, confusion. History of present illness: Pulmonary consult dated 06/16/2023. 47-year-old female that was seen in the emergency department, on June 15. The patient was in the emergency department on June 03, June 08, and finally on June 15. She apparently was brought in, because she was found by her family, to be confused, and apparently was on the floor. She states that she fell. She also apparently experienced an EGD with one of the surgeons on June 06. She has a long-standing history of polysubstance abuse with respiratory failure, long-term mechanical ventilation and tracheostomy. She also has a history of rhabdomyolysis, acute kidney injury, MRSA sepsis, depression, and PTSD. The patient was found to have a very low hemoglobin of 5.6. She was seen by infectious disease doctor and started on fluconazole and Unasyn. Currently she is on room air, and receiving lactated Ringer's at 75 mL an hour. Drug screen was positive for opiates, oxycodone, THC, and benzodiazepines. The patient had a computed tomography scan of the abdomen and pelvis which suggested a perforated gastric ulcer. I was called by her primary hospital doctor, asking for an intensive care unit bed. Currently, her white count is 12.44, hemoglobin 5.6, hematocrit 17.5, and platelet count is adequate. Sodium 141, potassium 2.8, chlorides 113, CO2 16, anion gap 12, BUN 26.8, and creatinine 1.3. The BUN and creatinine were 47 and 2.29 on the . Calcium is 7.9. C-reactive protein is 10.5, her calcitonin level was 0.45. Urine is negative. Drug screen as mentioned above. Brain CT showed nothing acute. Chest x-ray was normal. One of the surgeons is seeing the patient currently. Review of Systems REVIEW OF SYSTEMS: CONSTITUTIONAL: Confusion, disorientation. NEUROLOGIC: [ Negative.] HEENT: [ Negative.] CARDIAC: [Negative.] PULMONARY: [Negative.] GI: Abdominal pain. : [Negative.] RHEUMATOLOGIC: [ Negative.] IMMUNOLOGIC: [ Negative.] ENDOCRINE: [Negative. ] DERMATOLOGIC: [Negative.] Past Medical History Past Medical History: Pneumonia, Respiratory Disorder Additional Past Medical History / Comment(s): Polysubstane abuse, history of drug overdose, history of ARDS requiring intubation and mechanical ventilation, history of severe rhabdomyolysis and LUIS MIGUEL (recovered), history of MSSA pneumonia and sepsis, history of metabolic encephalopathy (recovered), history of depression, suicidal thoughts, suicide attempts, obesity. 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 Date of last positivie culture/infection: None MDRO Source:: nare Past Surgical History: No Surgical Hx Reported Additional Past Surgical History / Comment(s): breast biopsy (date unknown), trach placement and peg tube placement for ARDS Past Anesthesia/Blood Transfusion Reactions: No Reported Reaction Past Psychological History: Anxiety, Depression, PTSD Smoking Status: Current every day smoker Past Alcohol Use History: None Reported Past Drug Use History: None Reported - Past Family History Mother Family Medical History: No Reported History Medications and Allergies Home Medications Medication Instructions Recorded Confirmed Type Sertraline HCl [Zoloft] 200 mg PO DAILY 11/16/18 06/15/23 History busPIRone HCL [Buspar] 30 mg PO BID 01/21/20 06/15/23 History buPROPion XL [Wellbutrin XL] 150 mg PO TID 05/16/20 06/15/23 History Cholecalciferol [Vitamin D3 (25 150 mcg PO DAILY 06/03/23 06/15/23 History Mcg = 1000 Iu)] Ferrous Sulfate [Iron (65 MG 325 mg PO BID-W/MEALS #60 tab 06/06/23 06/15/23 Rx Elemental)] Metoprolol Tartrate [Lopressor] 12.5 mg PO BID #60 tab 06/06/23 06/15/23 Rx Nicotine 21Mg/24Hr Patch [Habitrol] 1 patch TRANSDERM DAILY #7 patch 06/06/23 06/15/23 Rx Omeprazole 20 mg PO BID #60 cap 06/06/23 06/15/23 Rx Ketorolac [Toradol] 10 mg PO Q6H PRN 06/15/23 06/15/23 History Ondansetron Odt [Zofran Odt] 4 mg PO Q8H PRN 06/15/23 06/15/23 History oxyCODONE HCL [OxyIR] 5 mg PO Q4H PRN 06/15/23 06/15/23 History Allergies Allergy/AdvReac Type Severity Reaction Status Date / Time Sulfa (Sulfonamide Allergy Rash/Hives Verified 06/15/23 13:41 Antibiotics) sulfamethoxazole Allergy Rash/Hives Verified 06/15/23 13:41 [From Bactrim] trimethoprim [From Bactrim] Allergy Rash/Hives Verified 06/15/23 13:41 Physical Exam Osteopathic Statement: *. No significant issues noted on an osteopathic structural exam other than those noted in the History and Physical/Consult. Vitals: Vital Signs Temp Pulse Pulse Resp BP BP Pulse Ox 06/16/23 11:35 97.7 F 72 18 134/87 100 06/16/23 08:37 98 06/16/23 08:00 72 17 06/16/23 07:30 98.7 F 72 17 111/76 99 06/16/23 02:00 98.2 F 77 20 92/63 94 L 06/15/23 19:16 98.5 F 74 20 122/84 99 06/15/23 17:56 78 18 104/78 98 06/15/23 16:04 97.9 F 77 18 122/86 97 06/15/23 15:10 98.2 F 75 18 120/68 97 06/15/23 15:06 98.0 F 79 18 96/73 96 06/15/23 15:00 74 20 104/67 96 06/15/23 14:30 76 23 105/57 99 06/15/23 14:00 74 24 114/78 94 L 06/15/23 13:30 72 19 100/77 96 06/15/23 13:15 73 19 111/81 97 06/15/23 13:00 76 20 121/77 98 06/15/23 12:45 102/81 06/15/23 12:40 98.2 F 76 18 121/77 96 Intake and Output 06/15/23 06/16/23 06/16/23 22:59 06:59 14:59 Intake Total 424 0 Balance 424 0 Intake: Oral 120 Blood Product 304 0 Unit 0 Rc Pheresis 2 As3 Unit 304 [id number] Other: Voiding Method Toilet Toilet # Voids 3 1 No acute distress, oriented 3. Currently on room air. HEENT examination is grossly unremarkable. Neck supple. Full range of motion. No adenopathy thyromegaly or neck vein distention. Cardiovascular examination reveals regular rhythm rate. S1-S2 normal. No S3 or S4. No discernible murmur noted. Heart rate 68 bpm. Lungs reveal clear breath sounds. Breath sounds are equal bilaterally. No adventitious lung sounds including wheezes rhonchi or crackles. Room air satura tions 100%. Abdomen soft, but tender. Bowel sounds are noted. Extremities are intact. No cyanosis clubbing or edema. Skin is without rash or lesion. Neurologic examination is brief but nonfocal. Results - Laboratory Findings CBC and BMP: 06/16/23 06:04 06/16/23 06:04 PT/INR, D-dimer PT 11.2 sec (10.0-12.5) 06/15/23 08:05 INR 1.0 (<1.2) 06/15/23 08:05 Abnormal lab findings: Abnormal Labs 06/15/23 06/15/23 06/15/23 08:05 08:05 08:05 WBC 21.4 H RBC 2.37 L Hgb 6.7 L* D Hct 21.2 L RDW 16.5 H Plt Count 473 H Immature Gran # Neutrophils # 18.8 H Hypochromasia (manual) Potassium 3.4 L Chloride 108 H Carbon Dioxide 15 L Anion Gap BUN 47 H Creatinine 2.29 H Est GFR (CKD-EPI) BUN/Creatinine Ratio Glucose 140 H Calcium 8.2 L Total Bilirubin C-Reactive Protein Total Protein 5.1 L Albumin 2.6 L Albumin/Globulin Ratio Procalcitonin Urine Protein Trace H Urine Ketones Trace H Urine Opiates Screen Detected H Ur Oxycodone Screen Detected H U Benzodiazepines Scrn Detected H U Marijuana (THC) Screen Detected H Crossmatch 06/15/23 06/15/23 06/16/23 09:35 16:12 06:04 WBC 19.7 H RBC 2.62 L Hgb 7.4 L Hct 23.3 L RDW 16.5 H Plt Count Immature Gran # Neutrophils # Hypochromasia (manual) Potassium Chloride Carbon Dioxide Anion Gap BUN Creatinine Est GFR (CKD-EPI) BUN/Creatinine Ratio Glucose Calcium Total Bilirubin C-Reactive Protein Total Protein Albumin Albumin/Globulin Ratio Procalcitonin 0.45 H Urine Protein Urine Ketones Urine Opiates Screen Ur Oxycodone Screen U Benzodiazepines Scrn U Marijuana (THC) Screen Crossmatch See Detail 06/16/23 06/16/23 06:04 06:04 WBC 12.44 H RBC 2.04 L Hgb 5.6 A* Hct 17.5 A* RDW 17.2 H Plt Count Immature Gran # 0.06 H Neutrophils # 9.24 H Hypochromasia (manual) 2+ A Potassium 2.8 L Chloride 113 H Carbon Dioxide 15.9 L Anion Gap 12.10 H BUN Creatinine Est GFR (CKD-EPI) 51 L BUN/Creatinine Ratio 20.62 H Glucose Calcium 7.9 L Total Bilirubin <0.2 L C-Reactive Protein 10.50 H Total Protein 4.1 L Albumin 2.3 L Albumin/Globulin Ratio 1.28 L Procalcitonin Urine Protein Urine Ketones Urine Opiates Screen Ur Oxycodone Screen U Benzodiazepines Scrn U Marijuana (THC) Screen Crossmatch - Diagnostic Findings Chest x-ray: image reviewed Assessment and Plan Assessment: Suspected gastric perforation, based on her computed tomography scan. Anemia, status post 3 units of PRBCs. Recent EGD, June 06, which revealed a duodenal ulcer with previous ulcer repair. Hypokalemia. Non-anion gap metabolic acidosis. History of polysubstance abuse and respiratory failure. Previous episode of respiratory failure, prolonged, requiring tracheostomy tube insertion. History of rhabdomyolysis. History of acute kidney injury. History of methicillin-resistant staph aureus sepsis. History of PTSD. History of depression. Plan: Plan dated 06/16/2023. The patient will be moved to the intensive care unit, for further monitoring and management. The patient was seen by one of the surgeons. Labs, x-rays, medications are reviewed. The patient is currently going to be receiving blood transfusions. Additional recommendations and suggestions are forthcoming. We will correct her potassium. Her prognosis is guarded. We will continue to follow the patient, and make recommendations along the way. Time with Patient: Greater than 30
[2023-06-16 14:43] LABS: Glucose,Whole Blood 91 mg/dL (70-110)
--- NOTE | 2023-06-16 15:48 | P.PN ---
Progress Note - Text Progress Note Date: 06/16/23 Patient re-evaluated in ICU. She reports no moderate epigastric pain. No peritonitis. Only mild tenderness at prior incision of the upper abdomen. "I don't think I need surgery," per her report. She has no diffuse abdominal pain. PLAN: 1. Toradol discontinued due to anemia and recurrent perforated ulcer. 2. Dilaudid for pain. 3. Resuscitation with re-evaluation tomorrow. 4. Mouth swabs only. 5. Will need TPN for prolonged anticipated NPO status for 7 days. 6. Care plan reviewed with patient with all questions answered.
[2023-06-16] MEDS: HYDROmorphone 1 MG/ML 1 ML SYRINGE IVP PRN ×3 (16:46→23:15)
[2023-06-16] MEDS ORDERED: DEXTROSE 5% IN WATER 1,000 ML with SODIUM BICARB (1 MEQ/ML) 150 ML IV ONE (17:00)
[2023-06-16] MEDS: POTASSIUM CHLORIDE 10 MEQ in WATER FOR INJECTION 1 100ML.BAG IVPB SCH ×4 (17:01→22:35)
--- NOTE | 2023-06-16 17:47 | P.PN ---
Subjective Progress Note Date: 06/16/23 Principal diagnosis: Reason for follow-up with perforated peptic ulcer disease and leukocytosis Patient is a 47-year-old female with a past medical history significant for polysubstance abuse history of drug overdose pneumonia patient was brought into the ER by her mother for evaluation of intermittent confusion patient noticed to have a elevated white count that has prompted this infectious disease consultation further workup was done and the patient did have a CT of abdominal pelvis completed 06/16/2023 that was reported with possible perforation of the peptic ulcer disease. On today's evaluation that is 06/16/2023, the patient denies having any fever or any chills has been complaining of epigastric abdominal pain some controlled with the pain medication and some nausea but no vomiting no chest pain shortness of breath or cough. Patient did have a hemoglobin of 5.6 white count is down to 12.44 creatinine is 1.3, blood cultures currently pending Objective - Vital Signs Vital signs: Vital Signs Temp 98.7 F 06/16/23 07:30 Pulse 72 06/16/23 07:30 Resp 17 06/16/23 07:30 BP 111/76 06/16/23 07:30 Pulse Ox 98 06/16/23 08:37 FiO2 Intake & Output 06/15/23 06/16/23 06/16/23 18:59 06:59 18:59 Intake Total 424 Balance 424 Weight 70.307 kg Intake: Oral 120 Blood Product 304 Rc Pheresis 2 As3 Unit 304 [id number] Other: Voiding Method Toilet # Voids 3 1 - Exam GENERAL DESCRIPTION: Middle-age lying in bed in no distress RESPIRATORY SYSTEM: Unlabored breathing , decreased breath sounds at bases HEART: S1 S2 regular rate and rhythm , ABDOMEN: Soft , mild epigastric tenderness EXTREMITIES: No edema feet - Labs CBC & Chem 7: 06/16/23 06:04 06/16/23 06:04 Labs: Abnormal Lab Results - Last 24 Hours (Table) 06/15/23 06/15/23 06/15/23 Range/Units 08:05 09:35 16:12 WBC 19.7 H (3.8-10.6) k/uL RBC 2.62 L (3.80-5.40) m/uL Hgb 7.4 L (11.4-16.0) gm/dL Hct 23.3 L (34.0-46.0) % RDW 16.5 H (11.5-15.5) % Urine Protein Trace H (Negative) Urine Ketones Trace H (Negative) Urine Opiates Screen Detected H (NotDetected) Ur Oxycodone Screen Detected H (NotDetected) U Benzodiazepines Scrn Detected H (NotDetected) U Marijuana (THC) Screen Detected H (NotDetected) Crossmatch See Detail Assessment and Plan (1) Leukocytosis Current Visit: Yes Status: Acute Code(s): D72.829 - ELEVATED WHITE BLOOD CELL COUNT, UNSPECIFIED SNOMED Code(s): 094854595 (2) Perforated peptic ulcer Current Visit: Yes Status: Acute Code(s): K27.5 - CHRONIC OR UNSP PEPTIC ULCER, SITE UNSP, WITH PERFORATION SNOMED Code(s): 81707208 (3) Peritonitis Current Visit: Yes Status: Acute Code(s): K65.9 - PERITONITIS, UNSPECIFIED SNOMED Code(s): 70336598 (4) Allergy to sulfa drugs Current Visit: Yes Status: Acute Code(s): Z88.2 - ALLERGY STATUS TO SULFONAMIDES SNOMED Code(s): 70362117 Plan: 1patient presented hospital with intermittent confusion and mental status changes patient was noticed to have elevated white count also anemia initial workup was negative with a CT abdominal pelvis showing evidence of perforated peptic ulcer disease 2-General surgery was consulted yesterday and has been contacted this morning with this finding pending their evaluation patient has been made n.p.o. 3-Unasyn will be continued keeping in mind improvement in the kidney function dose will be tested to every 6 hours and we will add Diflucan Prognosis guarded will monitor closely plan of care were discussed with the admitting team Dictation was produced using [employer] dictation software. please excuse any grammatical, word or spelling errors. Time with Patient: Greater than 30
--- NOTE | 2023-06-16 17:55 | P.PN ---
Subjective Progress Note Date: 06/16/23 ymes are normal urine has been negative urine drug screen was positive for benzo and cocaine patient noticed to have a wound to the dorsum aspect of the right foot for the patient did have a chest x-ray soft tissue swelling edema of the foot without evidence for fracture or bony erosion chest x-ray cardiomegaly mild pulm vascular congestion infectious disease was consulted for right foot wound most information has been obtained from review the chart as the patient remains to be lethargic and did not provide any history as far as right foot wound and the kind of treatment he is receiving for it ymes are normal urine has been negative urine drug screen was positive for benzo and cocaine patient noticed to have a wound to the dorsum aspect of the right foot for the patient did have a chest x-ray soft tissue swelling edema of the foot without evidence for fracture or bony erosion chest x-ray cardiomegaly mild pulm vascular congestion infectious disease was consulted for right foot wound most information has been obtained from review the chart as the patient remains to be lethargic and did not provide any history as far as right foot wound and the kind of treatment he is receiving for it -- CT of the abdomen and pelvis completed reveals upper abdomen inflammation likely secondary to perforated gastric ulcer; circumferential wall thickening of the gallbladder with hyperemia likely secondary to 1 -- Stat surgical consult is done -- Hemoglobin is down to 5.6; 2 units of packed RBCs are ordered -- Patient is being transferred to ICU Objective - Vital Signs Vital signs: Vital Signs Temp 97.7 F 06/16/23 11:35 Pulse 72 06/16/23 11:35 Resp 18 06/16/23 11:35 BP 134/87 06/16/23 11:35 Pulse Ox 100 06/16/23 11:35 FiO2 Intake & Output 06/15/23 06/16/23 06/16/23 18:59 06:59 18:59 Intake Total 424 Balance 424 Weight 70.307 kg Intake: Oral 120 Blood Product 304 Rc Pheresis 2 As3 Unit 304 [id number] Other: Voiding Method Toilet Toilet # Voids 3 1 - Exam Head exam: Present: atraumatic Eye exam: Present: normal appearance, PERRL Neck exam: Present: normal inspection. Absent: tenderness, meningismus Respiratory exam: Present: normal lung sounds bilaterally Cardiovascular Exam: Present: regular rate, normal rhythm GI/Abdominal exam: Present: soft. Absent: tenderness Extremities exam: Present: normal inspection Neurological exam: Present: person, place. Absent: time Motor strength exam: RUE: 5, LUE: 5, RLE: 5, LLE: 5 Eye Response: (2) open to pain Motor Response: (6) obeys commands Verbal Response: (4) confused conversation Psychiatric exam: Present: flat affect Skin exam: Present: other (Right dorsal foot with approximately 4 x 4 centimeter ulcer with foul odor. Stage III.) - Labs CBC & Chem 7: 06/16/23 06:04 06/16/23 06:04 Labs: Abnormal Lab Results - Last 24 Hours (Table) 06/15/23 06/15/23 06/16/23 Range/Units 09:35 16:12 06:04 WBC 19.7 H (3.8-10.6) k/uL RBC 2.62 L (3.80-5.40) m/uL Hgb 7.4 L (11.4-16.0) gm/dL Hct 23.3 L (34.0-46.0) % RDW 16.5 H (11.5-15.5) % Immature Gran # (0.00-0.04) X 10*3/uL Neutrophils # (1.80-7.70) X 10*3/uL Hypochromasia (manual) Potassium (3.5-5.5) mmol/L Chloride (96-109) mmol/L Carbon Dioxide (21.6-31.8) mmol/L Anion Gap (4.00-12.00) mmol/L Est GFR (CKD-EPI) (>=60) BUN/Creatinine Ratio (12.00-20.00) Ratio Calcium (8.7-10.3) mg/dL Total Bilirubin (0.3-1.2) mg/dL C-Reactive Protein (0.00-0.80) mg/dL Total Protein (6.2-8.2) g/dL Albumin (3.8-4.9) g/dL Albumin/Globulin Ratio (1.60-3.17) Ratio Procalcitonin 0.45 H (0.02-0.09) ng/mL Crossmatch See Detail 12/24/23 12/24/23 Range/Units 06:04 06:04 WBC 12.44 H (3.8-10.6) k/uL RBC 2.04 L (3.80-5.40) m/uL Hgb 5.6 A* (11.4-16.0) gm/dL Hct 17.5 A* (34.0-46.0) % RDW 17.2 H (11.5-15.5) % Immature Gran # 0.06 H (0.00-0.04) X 10*3/uL Neutrophils # 9.24 H (1.80-7.70) X 10*3/uL Hypochromasia (manual) 2+ A Potassium 2.8 L (3.5-5.5) mmol/L Chloride 113 H (96-109) mmol/L Carbon Dioxide 15.9 L (21.6-31.8) mmol/L Anion Gap 12.10 H (4.00-12.00) mmol/L Est GFR (CKD-EPI) 51 L (>=60) BUN/Creatinine Ratio 20.62 H (12.00-20.00) Ratio Calcium 7.9 L (8.7-10.3) mg/dL Total Bilirubin <0.2 L (0.3-1.2) mg/dL C-Reactive Protein 10.50 H (0.00-0.80) mg/dL Total Protein 4.1 L (6.2-8.2) g/dL Albumin 2.3 L (3.8-4.9) g/dL Albumin/Globulin Ratio 1.28 L (1.60-3.17) Ratio Procalcitonin (0.02-0.09) ng/mL Crossmatch Assessment and Plan Assessment: 1. Altered mental status; likely multifactorial related to polysubstance abuse versus AK I/dehydration - We will monitor neuro checks per protocol; consult neurology 2. Acute renal injury/dehydration - BUN/creatinine elevated at 47/2.29 -- We will start patient on IV fluid hydration form of normal saline at a rate of 100 mL an hour; monitor strict KATERINE's, daily weights, renal function and electrolytes - Avoid nephrotoxins and hypotension 3. Severe anemia; patient received 2 units packed RBCs in ED; we will monitor H&H every 6 hours with plans to transfuse if hemoglobin is less than 7.0; stool occult blood on stool specimens; Protonix 40 mg IV every 12 hours -- Consult general surgery 4. Electrolyte imbalance; supplemented in ED; monitor electrolytes closely and supplement as needed 5. Polysubstance abuse; urine drug screen is positive for opiates, benzodiazepines and marijuana 6. Hypertension; metoprolol 12.5 mg twice a day 7. Depression/anxiety; patient takes Wellbutrin, Zoloft and BuSpar DVT prophylaxis; SCDs only CODE STATUS; full code
[2023-06-16 18:55] LABS: Glucose,Whole Blood 98 mg/dL (70-110)
[2023-06-16 20:43] LABS: Anisocytosis Slight; Basophils % (A) 0 %; Eosinophils # (A) 0.3 k/uL (0-0.7); Eosinophils % (A) 2 %; HCT 23.9 % (34.0-46.0); HGB 7.9 gm/dL (11.4-16.0); Hypochromasia Slight; Lymphocytes # (A) 2.6 k/uL (1.0-4.8); Lymphocytes % (A) 24 %; MCH 28.4 pg (25.0-35.0); MCV 86.1 fL (80.0-100.0); Mean Platelet Volume 8.1; Monocytes # (A) 0.3 k/uL (0-1.0); Monocytes % (A) 3 %; Neutrophils # (A) 7.4 k/uL (1.3-7.7); Neutrophils % (A) 69 %; Platelet Count 305 k/uL (150-450); Poikilocytosis Slight; RBC 2.77 m/uL (3.80-5.40); RDW 16.7 % (11.5-15.5); WBC 10.7 k/uL (3.8-10.6)
[2023-06-16 21:07] LABS: ALT 16 U/L (4-34); AST 21 U/L (14-36); African American GFR (CKD) 89 (>60 ml/min/1.73 sqM); Albumin 2.1 g/dL (3.5-5.0); Alkaline Phosphatase 76 U/L (38-126); Anion Gap 9 mmol/L; Blood Urea Nitrogen 18 mg/dL (7-17); Calcium 7.7 mg/dL (8.4-10.2); Carbon Dioxide 15 mmol/L (22-30); Chloride 116 mmol/L (98-107); Glucose 89 mg/dL (74-99); Magnesium 1.7 mg/dL (1.6-2.3); Non-African American GFR(CKD) 78 (>60 ml/min/1.73 sqM); Potassium 3.2 mmol/L (3.5-5.1); Sodium 140 mmol/L (137-145); Total Bilirubin 0.5 mg/dL (0.2-1.3); Total Protein 4.4 g/dL (6.3-8.2)
[2023-06-16] MEDS: NICOTINE 14MG/24HR PATCH TRANSDERM SCH (21:09)
[2023-06-17] MEDS: AMPICILLIN-SULBACTAM 3 GM in SODIUM CHLORIDE 0.9% 100 ML IVPB SCH ×5 (00:39→23:59)
[2023-06-17 00:44] LABS: Glucose,Whole Blood 99 mg/dL (70-110)
[2023-06-17 01:03] LABS: Anisocytosis Slight; HCT 23.3 % (34.0-46.0); HGB 7.7 gm/dL (11.4-16.0); Hypochromasia Slight; MCH 28.8 pg (25.0-35.0); MCHC 32.9 g/dL (31.0-37.0); MCV 87.7 fL (80.0-100.0); Mean Platelet Volume 8.1; Platelet Count 307 k/uL (150-450); Poikilocytosis Slight; RBC 2.65 m/uL (3.80-5.40); RDW 16.5 % (11.5-15.5)
[2023-06-17] MEDS ORDERED: Potassium Replacement Protocol 1 EACH MISC MISCELLANE PRN ×2 (02:24→07:39)
[2023-06-17] MEDS: HYDROmorphone 1 MG/ML 1 ML SYRINGE IVP PRN ×6 (02:34→18:06)
[2023-06-17] MEDS: POTASSIUM CHLORIDE 10 MEQ in WATER FOR INJECTION 1 100ML.BAG IVPB SCH ×6 (02:35→10:24)
[2023-06-17] MEDS ORDERED: Magnesium Replacement Protocol 1 EACH MISC MISCELLANE PRN (03:00)
[2023-06-17] MEDS ORDERED: MAGNESIUM SULFATE-D5W PMX 1 GM in DEXTROSE/WATER 1 100ML.BAG IVPB ONE (03:00)
[2023-06-17 06:28] LABS: Anisocytosis Slight; Basophils % (A) 0 %; Eosinophils # (A) 0.3 k/uL (0-0.7); Eosinophils % (A) 4 %; HCT 24.8 % (34.0-46.0); HGB 8.2 gm/dL (11.4-16.0); Hypochromasia Slight; Lymphocytes # (A) 2.5 k/uL (1.0-4.8); Lymphocytes % (A) 29 %; MCH 28.8 pg (25.0-35.0); MCHC 32.9 g/dL (31.0-37.0); MCV 87.4 fL (80.0-100.0); Mean Platelet Volume 8.2; Monocytes # (A) 0.4 k/uL (0-1.0); Monocytes % (A) 4 %; Neutrophils # (A) 5.4 k/uL (1.3-7.7); Neutrophils % (A) 62 %; Platelet Count 326 k/uL (150-450); Poikilocytosis Slight; RBC 2.84 m/uL (3.80-5.40); RDW 16.6 % (11.5-15.5); WBC 8.7 k/uL (3.8-10.6)
[2023-06-17 07:36] LABS: ALT 18 U/L (4-34); AST 24 U/L (14-36); African American GFR (CKD) >90 (>60 ml/min/1.73 sqM); Albumin 2.1 g/dL (3.5-5.0); Alkaline Phosphatase 78 U/L (38-126); Anion Gap 10 mmol/L; Blood Urea Nitrogen 14 mg/dL (7-17); Calcium 7.8 mg/dL (8.4-10.2); Carbon Dioxide 16 mmol/L (22-30); Chloride 115 mmol/L (98-107); Glucose 88 mg/dL (74-99); Magnesium 1.9 mg/dL (1.6-2.3); Non-African American GFR(CKD) >90 (>60 ml/min/1.73 sqM); Potassium 3.6 mmol/L (3.5-5.1); Sodium 141 mmol/L (137-145); Total Bilirubin 0.4 mg/dL (0.2-1.3); Total Protein 4.6 g/dL (6.3-8.2)
[2023-06-17] MEDS: PANTOPRAZOLE 40 MG/10 ML VIAL IV SCH ×2 (09:19→21:22)
[2023-06-17] MEDS: NICOTINE 14MG/24HR PATCH TRANSDERM SCH (09:19)
[2023-06-17] MEDS: ONDANSETRON 4 MG/2 ML VIAL IVP PRN ×2 (09:34→18:12)
[2023-06-17] MEDS: FLUCONAZOLE IN NACL,ISO-OSM 200 MG in SALINE 1 100ML.BAG IVPB SCH (10:08)
[2023-06-17] MEDS: DEXTROSE 5% IN WATER 1,000 ML with SODIUM BICARB (1 MEQ/ML) 150 ML IV SCH (10:14)
--- NOTE | 2023-06-17 10:16 | P.PN ---
Subjective Progress Note Date: 06/17/23 Principal diagnosis: Abdominal pain. Pulmonary consult dated 06/16/2023. 47-year-old female that was seen in the emergency department, on June 15. The patient was in the emergency department on June 03, June 08, and finally on June 15. She apparently was brought in, because she was found by her family, to be confused, and apparently was on the floor. She states that she fell. She also apparently experienced an EGD with one of the surgeons on June 06. She has a long-standing history of polysubstance abuse with respiratory failure, long-term mechanical ventilation and tracheostomy. She also has a history of rhabdomyolysis, acute kidney injury, MRSA sepsis, depression, and PTSD. The patient was found to have a very low hemoglobin of 5.6. She was seen by infectious disease doctor and started on fluconazole and Unasyn. Currently she is on room air, and receiving lactated Ringer's at 75 mL an hour. Drug screen was positive for opiates, oxycodone, THC, and benzodiazepines. The patient had a computed tomography scan of the abdomen and pelvis which suggested a perforated gastric ulcer. I was called by her primary hospital doctor, asking for an intensive care unit bed. Currently, her white count is 12.44, hemoglobin 5.6, hematocrit 17.5, and platelet count is adequate. Sodium 141, potassium 2.8, chlorides 113, CO2 16, anion gap 12, BUN 26.8, and creatinine 1.3. The BUN and creatinine were 47 and 2.29 on the . Calcium is 7.9. C-reactive protein is 10.5, her calcitonin level was 0.45. Urine is negative. Drug screen as mentioned above. Brain CT showed nothing acute. Chest x-ray was normal. One of the surgeons is seeing the patient currently. Progress note dated 06/17/2023. 47-year-old female who was seen yesterday in consultation. Please see my note above. The patient was in the emergency department, on June 03, June 08, and lastly on June 15. She was recently brought in by her family because she was found on the floor, she was very confused. The patient apparently was discovered to have a perforated viscus, and we transfer her to the intensive care unit, for further monitoring and management. The patient apparently is going to have an exploratory laparotomy, sometime later today. She is currently seen today in room 256. Other than abdominal pain, she doesn't have any complaints. She remains on room air. She's getting dextrose with 3 ampules of sodium bicarbonate at 75 mL an hour. She's also getting saline at 10 mL now. White count is 8.7, hemoglobin 8.2, hematocrit 24.8, and platelet count 326,000. Sodium 141, potassium 3.6, chlorides 115, CO2 16, BUN 14, and creatinine 0.78. Albumin is 2.1. Objective - Vital Signs Vital signs: Vital Signs Temp 97.9 F 06/17/23 08:00 Pulse 67 06/17/23 08:00 Resp 13 06/17/23 08:00 BP 147/94 06/17/23 08:00 Pulse Ox 96 06/17/23 08:00 FiO2 Intake & Output 06/16/23 06/17/23 06/17/23 18:59 06:59 18:59 Intake Total 1383 1465 175 Output Total 350 400 500 Balance 1033 1065 -325 Weight 74.4 kg Intake: IV 825 1465 175 Ampicillin-Sulbactam 3 gm 200 In Sodium Chloride 0.9% 100 ml @ 200 mls/hr IVPB Q6HR [facility] Rx#:[id number] Ampicillin-Sulbactam 3 gm 100 In Sodium Chloride 0.9% 100 ml @ 200 mls/hr IVPB Q8HR [facility] Rx#:[id number] Dextrose 5% in Water 1, 15 675 75 000 ml @ 75 mls/hr IV . [id number] ONE with Sodium Bicarb (1 Meq/ml) 150 ml Rx#:[id number] Fluconazole in NaCl,Iso- 100 Osm 200 mg In Saline 1 100ml.bag @ 100 mls/hr IVPB DAILY [facility] Rx#: [id number] Invasive Line 1 20 30 Invasive Line 2 40 60 Lactated Ringers 1,000 ml 350 @ 75 mls/hr IV .[id number] [facility] Rx#:[id number] Magnesium Sulfate-D5w Pmx 100 1 gm In Dextrose/Water 1 100ml.bag @ 100 mls/hr IVPB ONCE ONE Rx#: [id number] Potassium Chloride 10 meq 100 400 100 In Water For Injection 1 100ml.bag @ 100 mls/hr IVPB Q1HR [facility] Rx#: [id number] Potassium Chloride 20 meq 100 In Water For Injection 1 100ml.bag @ 50 mls/hr IVPB Q2H [facility] Rx#: [id number] Blood Product 558 Rc Pheresis As-3 Unit 279 [id number] Rc Pheresis As-3 Unit 279 [id number] Output: Urine 350 400 500 Urine/Stool Mix 0 Other: Voiding Method External Catheter External Catheter # Voids 0 1 # Bowel Movements 0 - Exam No acute distress, oriented 3. Currently on room air. HEENT examination is grossly unremarkable. Neck supple. Full range of motion. No adenopathy thyromegaly or neck vein distention. Cardiovascular examination reveals regular rhythm rate. S1-S2 normal. No S3 or S4. No discernible murmur noted. Heart rate 67 bpm. Lungs reveal clear breath sounds. Breath sounds are equal bilaterally. No adventitious lung sounds including wheezes rhonchi or crackles. Room air saturationis 96%. Abdomen soft, but tender. Bowel sounds are noted. Extremities are intact. No cyanosis clubbing or edema. Skin is without rash or lesion. Neurologic examination is brief but nonfocal. - Labs CBC & Chem 7: 06/17/23 05:50 06/17/23 05:50 Labs: Abnormal Lab Results - Last 24 Hours (Table) 06/15/23 06/16/23 06/16/23 Range/Units 09:35 06:04 06:04 WBC 12.44 H (4.50-10.00) X 10*3/uL RBC 2.04 L (4.10-5.20) X 10*6/uL Hgb 5.6 A* (12.0-15.0) g/dL Hct 17.5 A* (37.2-46.3) % RDW 17.2 H (11.5-14.5) % Immature Gran # 0.06 H (0.00-0.04) X 10*3/uL Neutrophils # 9.24 H (1.80-7.70) X 10*3/uL Hypochromasia (manual) 2+ A Potassium (3.5-5.5) mmol/L Chloride (96-109) mmol/L Carbon Dioxide (21.6-31.8) mmol/L Anion Gap (4.00-12.00) mmol/L BUN (7-17) mg/dL Est GFR (CKD-EPI) (>=60) BUN/Creatinine Ratio (12.00-20.00) Ratio Calcium (8.7-10.3) mg/dL Total Bilirubin (0.3-1.2) mg/dL C-Reactive Protein (0.00-0.80) mg/dL Total Protein (6.2-8.2) g/dL Albumin (3.8-4.9) g/dL Albumin/Globulin Ratio (1.60-3.17) Ratio Procalcitonin 0.45 H (0.02-0.09) ng/mL Crossmatch See Detail 06/16/23 06/16/23 06/16/23 Range/Units 06:04 20:30 20:30 WBC 10.7 H (4.50-10.00) X 10*3/uL RBC 2.77 L (4.10-5.20) X 10*6/uL Hgb 7.9 L (12.0-15.0) g/dL Hct 23.9 L (37.2-46.3) % RDW 16.7 H (11.5-14.5) % Immature Gran # (0.00-0.04) X 10*3/uL Neutrophils # (1.80-7.70) X 10*3/uL Hypochromasia (manual) Potassium 2.8 L 3.2 L (3.5-5.5) mmol/L Chloride 113 H 116 H (96-109) mmol/L Carbon Dioxide 15.9 L 15 L (21.6-31.8) mmol/L Anion Gap 12.10 H (4.00-12.00) mmol/L BUN 18 H (7-17) mg/dL Est GFR (CKD-EPI) 51 L (>=60) BUN/Creatinine Ratio 20.62 H (12.00-20.00) Ratio Calcium 7.9 L 7.7 L (8.7-10.3) mg/dL Total Bilirubin <0.2 L (0.3-1.2) mg/dL C-Reactive Protein 10.50 H (0.00-0.80) mg/dL Total Protein 4.1 L 4.4 L (6.2-8.2) g/dL Albumin 2.3 L 2.1 L (3.8-4.9) g/dL Albumin/Globulin Ratio 1.28 L (1.60-3.17) Ratio Procalcitonin (0.02-0.09) ng/mL Crossmatch 06/17/23 06/17/23 06/17/23 Range/Units 00:09 00:09 05:50 WBC (4.50-10.00) X 10*3/uL RBC 2.65 L 2.84 L (4.10-5.20) X 10*6/uL Hgb 7.7 L 8.2 L (12.0-15.0) g/dL Hct 23.3 L 24.8 L (37.2-46.3) % RDW 16.5 H 16.6 H (11.5-14.5) % Immature Gran # (0.00-0.04) X 10*3/uL Neutrophils # (1.80-7.70) X 10*3/uL Hypochromasia (manual) Potassium 3.2 L (3.5-5.5) mmol/L Chloride (96-109) mmol/L Carbon Dioxide (21.6-31.8) mmol/L Anion Gap (4.00-12.00) mmol/L BUN (7-17) mg/dL Est GFR (CKD-EPI) (>=60) BUN/Creatinine Ratio (12.00-20.00) Ratio Calcium (8.7-10.3) mg/dL Total Bilirubin (0.3-1.2) mg/dL C-Reactive Protein (0.00-0.80) mg/dL Total Protein (6.2-8.2) g/dL Albumin (3.8-4.9) g/dL Albumin/Globulin Ratio (1.60-3.17) Ratio Procalcitonin (0.02-0.09) ng/mL Crossmatch 06/17/23 Range/Units 05:50 WBC (4.50-10.00) X 10*3/uL RBC (4.10-5.20) X 10*6/uL Hgb (12.0-15.0) g/dL Hct (37.2-46.3) % RDW (11.5-14.5) % Immature Gran # (0.00-0.04) X 10*3/uL Neutrophils # (1.80-7.70) X 10*3/uL Hypochromasia (manual) Potassium (3.5-5.5) mmol/L Chloride 115 H (96-109) mmol/L Carbon Dioxide 16 L (21.6-31.8) mmol/L Anion Gap (4.00-12.00) mmol/L BUN (7-17) mg/dL Est GFR (CKD-EPI) (>=60) BUN/Creatinine Ratio (12.00-20.00) Ratio Calcium 7.8 L (8.7-10.3) mg/dL Total Bilirubin (0.3-1.2) mg/dL C-Reactive Protein (0.00-0.80) mg/dL Total Protein 4.6 L (6.2-8.2) g/dL Albumin 2.1 L (3.8-4.9) g/dL Albumin/Globulin Ratio (1.60-3.17) Ratio Procalcitonin (0.02-0.09) ng/mL Crossmatch Assessment and Plan Assessment: Suspected gastric perforation, based on her computed tomography scan. Anemia, status post 3 units of PRBCs. Recent EGD, June 06, which revealed a duodenal ulcer with previous ulcer repair. Hypokalemia. Non-anion gap metabolic acidosis. History of polysubstance abuse and respiratory failure. Previous episode of respiratory failure, prolonged, requiring tracheostomy tube insertion. History of rhabdomyolysis. History of acute kidney injury. History of methicillin-resistant staph aureus sepsis. History of PTSD. History of depression. Plan: Plan dated 06/16/2023. The patient will be moved to the intensive care unit, for further monitoring and management. The patient was seen by one of the surgeons. Labs, x-rays, medications are reviewed. The patient is currently going to be receiving blood transfusions. Additional recommendations and suggestions are forthcoming. We will correct her potassium. Her prognosis is guarded. We will continue to follow the patient, and make recommendations along the way. Plan dated 06/17/2023. The patient is seen today in room 256. She's on room air. She's receiving sodium bicarbonate drip. The plan is to take the patient to the operating room, later today. Labs, x-rays, and medications are reviewed. The patient's overall prognosis remains guarded. We will continue to follow make recommendations along the way. The patient is currently on Unasyn, and fluconazole. Time with Patient: Greater than 30
--- NOTE | 2023-06-17 11:01 | P.PN ---
Subjective Patient is seen for follow-up for acute kidney injury. She was transferred to the ICU with secondary to ongoing GI bleed. CT abdomen showed evidence of free air suggesting perforated gastric ulcer. Patient is being followed by general surgery. Hemodynamically stable. Patient remains on bicarb drip. Good urine output Serum creatinine improved to 0.78 mg/dL. Potassium is 3.6. Objective - Vital Signs Vital signs: Vital Signs Temp 97.9 F 06/17/23 08:00 Pulse 71 06/17/23 10:00 Resp 14 06/17/23 10:00 BP 144/95 06/17/23 10:00 Pulse Ox 95 06/17/23 10:00 FiO2 Intake & Output 06/16/23 06/17/23 06/17/23 18:59 06:59 18:59 Intake Total 1383 1465 205 Output Total 350 400 500 Balance 1033 1065 -295 Weight 74.4 kg Intake: IV 825 1465 205 Ampicillin-Sulbactam 3 gm 200 In Sodium Chloride 0.9% 100 ml @ 200 mls/hr IVPB Q6HR [facility] Rx#:[id number] Ampicillin-Sulbactam 3 gm 100 In Sodium Chloride 0.9% 100 ml @ 200 mls/hr IVPB Q8HR [facility] Rx#:[id number] Dextrose 5% in Water 1, 15 675 75 000 ml @ 75 mls/hr IV . [id number] ONE with Sodium Bicarb (1 Meq/ml) 150 ml Rx#:[id number] Fluconazole in NaCl,Iso- 100 Osm 200 mg In Saline 1 100ml.bag @ 100 mls/hr IVPB DAILY [facility] Rx#: [id number] Invasive Line 1 20 30 10 Invasive Line 2 40 60 20 Lactated Ringers 1,000 ml 350 @ 75 mls/hr IV .[id number] [facility] Rx#:[id number] Magnesium Sulfate-D5w Pmx 100 1 gm In Dextrose/Water 1 100ml.bag @ 100 mls/hr IVPB ONCE ONE Rx#: [id number] Potassium Chloride 10 meq 100 400 100 In Water For Injection 1 100ml.bag @ 100 mls/hr IVPB Q1HR [facility] Rx#: [id number] Potassium Chloride 20 meq 100 In Water For Injection 1 100ml.bag @ 50 mls/hr IVPB Q2H [facility] Rx#: [id number] Blood Product 558 Rc Pheresis As-3 Unit 279 [id number] Rc Pheresis As-3 Unit 279 [id number] Output: Urine 350 400 500 Urine/Stool Mix 0 Other: Voiding Method External Catheter External Catheter # Voids 0 1 # Bowel Movements 0 - Exam Patient is awake, comfortable, no acute distress Examination of the heart S1 and S2 Examination of the lungs bilateral breath sounds are heard Abdomen is soft nontender Examination lower extremity shows no evidence of edema ADMINISTRATIVE ASSISTANT DATA ENTRY exam shows patient is moving all 4 extremities. - Labs CBC & Chem 7: 06/17/23 05:50 06/17/23 05:50 Labs: Abnormal Lab Results - Last 24 Hours (Table) 06/15/23 06/16/23 06/16/23 Range/Units 09:35 06:04 20:30 WBC 10.7 H (3.8-10.6) k/uL RBC 2.77 L (3.80-5.40) m/uL Hgb 7.9 L (11.4-16.0) gm/dL Hct 23.9 L (34.0-46.0) % RDW 16.7 H (11.5-15.5) % Potassium (3.5-5.1) mmol/L Chloride (98-107) mmol/L Carbon Dioxide (22-30) mmol/L BUN (7-17) mg/dL Calcium (8.4-10.2) mg/dL Total Protein (6.3-8.2) g/dL Albumin (3.5-5.0) g/dL Procalcitonin 0.45 H (0.02-0.09) ng/mL Crossmatch See Detail 06/16/23 06/17/23 06/17/23 Range/Units 20:30 00:09 00:09 WBC (3.8-10.6) k/uL RBC 2.65 L (3.80-5.40) m/uL Hgb 7.7 L (11.4-16.0) gm/dL Hct 23.3 L (34.0-46.0) % RDW 16.5 H (11.5-15.5) % Potassium 3.2 L 3.2 L (3.5-5.1) mmol/L Chloride 116 H (98-107) mmol/L Carbon Dioxide 15 L (22-30) mmol/L BUN 18 H (7-17) mg/dL Calcium 7.7 L (8.4-10.2) mg/dL Total Protein 4.4 L (6.3-8.2) g/dL Albumin 2.1 L (3.5-5.0) g/dL Procalcitonin (0.02-0.09) ng/mL Crossmatch 06/17/23 06/17/23 Range/Units 05:50 05:50 WBC (3.8-10.6) k/uL RBC 2.84 L (3.80-5.40) m/uL Hgb 8.2 L (11.4-16.0) gm/dL Hct 24.8 L (34.0-46.0) % RDW 16.6 H (11.5-15.5) % Potassium (3.5-5.1) mmol/L Chloride 115 H (98-107) mmol/L Carbon Dioxide 16 L (22-30) mmol/L BUN (7-17) mg/dL Calcium 7.8 L (8.4-10.2) mg/dL Total Protein 4.6 L (6.3-8.2) g/dL Albumin 2.1 L (3.5-5.0) g/dL Procalcitonin (0.02-0.09) ng/mL Crossmatch Assessment and Plan Assessment: 1. Acute kidney injury, ATN secondary to hypotension and severe anemia as well as volume depletion. Currently improved. UA is benign. 2. History of polysubstance abuse with current drug screen positive for opiates and oxycodone benzos and marijuana 3. Anemia with history of black stools. Status post packed RBCs 4. Hypokalemia associated with decreased oral intake and bicarb drip 5. GI bleed 6. Metabolic acidosis secondary to acute kidney injury Plan: Continue bicarb drip Repeat labs in a.m. Check iron profile, this may not be accurate as patient has received packed RBCs. Replace aggressively if levels are low.
--- NOTE | 2023-06-17 11:37 | P.PN ---
Subjective Progress Note Date: 06/17/23 CHIEF COMPLAINT: Abdominal pain HISTORY OF PRESENT ILLNESS: The patient is a 47 year old female who presents with recurrent perforated ulcer in over 2 weeks duration. Today she reports pain along the epigastrium and is now amenable for surgery. She reports smoking despite her ulcer and not adhering to treatment plan for her ulcer REVIEW OF ORGAN SYSTEMS: No fevers or chills. No nausea or vomiting. No shortness of breath. PHYSICAL EXAM: VITALS: Reviewed CONSTITUTIONAL: Well developed and in no acute distress. EYES: Conjuctivae without sclera icterus. Extraocular movements grossly intact. HEAD, EARS, NOSE, THROAT: Moist buccal mucosa. Head is atraumatic, normocephalic. Hears conversational speech. No nasal drainage. RESPIRATORY: Non-labored respirations and equal bilateral excursions. No gross wheezes. CARDIOVASCULAR: Palpable 2+ radial pulses. ABDOMEN: Well healed upper midline incision. Tender along epigastrium MUSCULOSKELETAL: No clubbing cyanosis or edema SKIN: Warm and well perfused with good skin turgor. NEUROLOGIC: Cranial nerves II through XII grossly intact. No focal or lateralizing signs. PSYCH: Flat affect. Alert and oriented to person, place and time. Displays appropriate insight. CLINCAL LABS: Reviewed. WBC normal. Hgb over 8.0. Potassium normal. STUDIES: 06/03/23 CT compared with 06/16 CT demonstrates presence of ulcer 2 weeks ago of localized free air and is chronic in nature. ASSESSMENT: 1. Duodenal ulcer, recurrent 2. Localized pneumoperitoneum 3. Acute anemia 4. Acute kidney injury 5. Tobacco abuse PLAN: 1. She has a chronic ulcer present over 2 weeks duration, non-healing in the presence of nicotine use. Strict nicotine and tobacco cessation advised as is contra-indicated for optimal recovery 2. Strict NPO status over 7 t 10 days described 3. PICC line ordered for TPN and antibiotics. 4. Continue ICU care. Objective - Vital Signs Vital signs: Vital Signs Temp 97.9 F 06/17/23 08:00 Pulse 66 06/17/23 11:00 Resp 16 06/17/23 11:00 BP 142/90 06/17/23 11:00 Pulse Ox 95 06/17/23 11:00 FiO2 Intake & Output 06/16/23 06/17/23 06/17/23 18:59 06:59 18:59 Intake Total 1383 1465 655 Output Total 350 400 500 Balance 1033 1065 155 Weight 74.4 kg Intake: IV 825 1465 655 Ampicillin-Sulbactam 3 gm 200 In Sodium Chloride 0.9% 100 ml @ 200 mls/hr IVPB Q6HR [facility] Rx#:[id number] Ampicillin-Sulbactam 3 gm 100 In Sodium Chloride 0.9% 100 ml @ 200 mls/hr IVPB Q8HR [facility] Rx#:[id number] Dextrose 5% in Water 1, 15 675 225 000 ml @ 75 mls/hr IV . [id number] ONE with Sodium Bicarb (1 Meq/ml) 150 ml Rx#:[id number] Fluconazole in NaCl,Iso- 100 100 Osm 200 mg In Saline 1 100ml.bag @ 100 mls/hr IVPB DAILY [facility] Rx#: [id number] Invasive Line 1 20 30 10 Invasive Line 2 40 60 20 Lactated Ringers 1,000 ml 350 @ 75 mls/hr IV .[id number] [facility] Rx#:[id number] Magnesium Sulfate-D5w Pmx 100 1 gm In Dextrose/Water 1 100ml.bag @ 100 mls/hr IVPB ONCE ONE Rx#: [id number] Potassium Chloride 10 meq 100 400 300 In Water For Injection 1 100ml.bag @ 100 mls/hr IVPB Q1HR [facility] Rx#: [id number] Potassium Chloride 20 meq 100 In Water For Injection 1 100ml.bag @ 50 mls/hr IVPB Q2H [facility] Rx#: [id number] Blood Product 558 Rc Pheresis As-3 Unit 279 [id number] Rc Pheresis As-3 Unit 279 [id number] Output: Urine 350 400 500 Urine/Stool Mix 0 Other: Voiding Method External Catheter External Catheter External Catheter # Voids 0 1 # Bowel Movements 0 - Labs CBC & Chem 7: 06/17/23 05:50 06/17/23 05:50 Labs: Abnormal Lab Results - Last 24 Hours (Table) 06/15/23 06/16/23 06/16/23 Range/Units 09:35 20:30 20:30 WBC 10.7 H (3.8-10.6) k/uL RBC 2.77 L (3.80-5.40) m/uL Hgb 7.9 L (11.4-16.0) gm/dL Hct 23.9 L (34.0-46.0) % RDW 16.7 H (11.5-15.5) % Potassium 3.2 L (3.5-5.1) mmol/L Chloride 116 H (98-107) mmol/L Carbon Dioxide 15 L (22-30) mmol/L BUN 18 H (7-17) mg/dL Calcium 7.7 L (8.4-10.2) mg/dL Total Protein 4.4 L (6.3-8.2) g/dL Albumin 2.1 L (3.5-5.0) g/dL Crossmatch See Detail 06/17/23 06/17/23 06/17/23 Range/Units 00:09 00:09 05:50 WBC (3.8-10.6) k/uL RBC 2.65 L 2.84 L (3.80-5.40) m/uL Hgb 7.7 L 8.2 L (11.4-16.0) gm/dL Hct 23.3 L 24.8 L (34.0-46.0) % RDW 16.5 H 16.6 H (11.5-15.5) % Potassium 3.2 L (3.5-5.1) mmol/L Chloride (98-107) mmol/L Carbon Dioxide (22-30) mmol/L BUN (7-17) mg/dL Calcium (8.4-10.2) mg/dL Total Protein (6.3-8.2) g/dL Albumin (3.5-5.0) g/dL Crossmatch 06/17/23 Range/Units 05:50 WBC (3.8-10.6) k/uL RBC (3.80-5.40) m/uL Hgb (11.4-16.0) gm/dL Hct (34.0-46.0) % RDW (11.5-15.5) % Potassium (3.5-5.1) mmol/L Chloride 115 H (98-107) mmol/L Carbon Dioxide 16 L (22-30) mmol/L BUN (7-17) mg/dL Calcium 7.8 L (8.4-10.2) mg/dL Total Protein 4.6 L (6.3-8.2) g/dL Albumin 2.1 L (3.5-5.0) g/dL Crossmatch
[2023-06-17 11:45] LABS: Glucose,Whole Blood 93 mg/dL (70-110)
--- NOTE | 2023-06-17 11:49 | P.CRDCN ---
History of Present Illness Consult date: 06/17/23 Reason for Consult (text): EKG changes History of present illness: The patient is a 47-year-old female who presented to the hospital with confusion and lethargy. The patient has been treated recently for duodenal ulcer and had been seen multiple times in the emergency room earlier this month. On arrival she was found to be anemic, with computed tomography scan of the abdomen likely showing perforated gastric ulcer. Cardiology has been consulted for abnormal EKG DIAGNOSTICS: EKG shows sinus mechanism with nonspecific T-wave abnormalities, consistent with previous reading Chest x-ray shows no acute cardiopulmonary disease CT of the brain shows no acute intracranial process. Chronic right frontal lobe periventricular white matter CT of abdomen and pelvis shows upper abdominal inflammation, likely secondary to perforated gastric ulcer Lab data: WBC 8.7, hemoglobin 8.2, hematocrit 24.8, platelet 326, sodium 141, potassium 3.6, BUN 14, creatinine 0.78, magnesium 1.9, troponins negative 3, AST 24, ALT 18 REVIEW OF SYSTEMS: No fever or chills. No cough or expectoration. No diaphoresis. Patient denies headache, dizziness, blurred vision, double vision. Patient denies any stomach discomfort. No nausea, vomiting. No hematochezia. No hematemesis. Denies any black stools or blood in his stools. Denies dysuria or hematuria. No muscle weakness or numbness. PHYSICAL EXAMINATION: This is a 47-year-old female in no apparent distress at the time of my examination. HEENT: Head is atraumatic, normocephalic. Pupils are equal, round. Sclerae anicteric. Conjunctivae are clear. Mucous membranes of the mouth are moist. Neck is supple. There is no jugular venous distention. No carotid bruit is heard. CHEST EXAMINATION: Lungs are clear to auscultation. No chest wall tenderness is noted on palpation or with deep breathing. HEART EXAMINATION: Heart regular rate and rhythm. S1, S2 heard. No murmurs, gallops or rub. ABDOMEN: Soft, nontender. Bowel sounds are heard. No organomegaly noted. EXTREMITIES: 2+ peripheral pulses with no evidence of peripheral edema and no calf tenderness noted. NEUROLOGIC EXAMINATION: Patient is awake, alert and oriented x3. FINAL ASSESSMENT AND PLAN: Abnormal EKG, nonspecific T wave abnormalities, unchanged from previous readings Suspected gastric perforation Recent duodenal ulcer status post ulcer repair Anemia History of polysubstance abuse PLAN: Start low-dose IV beta blockers Continue to monitor vital signs Transition back to oral medications when cleared by surgery Thank you kindly for this consultation I am dictating on behalf of Dr Sai Lockhart's history/physical and assessme nt/plan. Past Medical History Past Medical History: Pneumonia, Respiratory Disorder Additional Past Medical History / Comment(s): Polysubstane abuse, history of drug overdose, history of ARDS requiring intubation and mechanical ventilation, history of severe rhabdomyolysis and LUIS MIGUEL (recovered), history of MSSA pneumonia and sepsis, history of metabolic encephalopathy (recovered), history of depression, suicidal thoughts, suicide attempts, obesity. 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 Date of last positivie culture/infection: None MDRO Source:: nare Past Surgical History: No Surgical Hx Reported Additional Past Surgical History / Comment(s): breast biopsy (date unknown), trach placement and peg tube placement for ARDS Past Anesthesia/Blood Transfusion Reactions: No Reported Reaction Past Psychological History: Anxiety, Depression, PTSD Smoking Status: Current every day smoker Past Alcohol Use History: None Reported Past Drug Use History: None Reported - Past Family History Mother Family Medical History: No Reported History Medications and Allergies Home Medications Medication Instructions Recorded Confirmed Type Sertraline HCl [Zoloft] 200 mg PO DAILY 11/16/18 06/15/23 History busPIRone HCL [Buspar] 30 mg PO BID 01/21/20 06/15/23 History buPROPion XL [Wellbutrin XL] 150 mg PO TID 05/16/20 06/15/23 History Cholecalciferol [Vitamin D3 (25 150 mcg PO DAILY 06/03/23 06/15/23 History Mcg = 1000 Iu)] Ferrous Sulfate [Iron (65 MG 325 mg PO BID-W/MEALS #60 tab 06/06/23 06/15/23 Rx Elemental)] Metoprolol Tartrate [Lopressor] 12.5 mg PO BID #60 tab 06/06/23 06/15/23 Rx Nicotine 21Mg/24Hr Patch [Habitrol] 1 patch TRANSDERM DAILY #7 patch 06/06/23 06/15/23 Rx Omeprazole 20 mg PO BID #60 cap 06/06/23 06/15/23 Rx Ketorolac [Toradol] 10 mg PO Q6H PRN 06/15/23 06/15/23 History Ondansetron Odt [Zofran Odt] 4 mg PO Q8H PRN 06/15/23 06/15/23 History oxyCODONE HCL [OxyIR] 5 mg PO Q4H PRN 06/15/23 06/15/23 History Allergies Allergy/AdvReac Type Severity Reaction Status Date / Time Sulfa (Sulfonamide Allergy Rash/Hives Verified 06/15/23 13:41 Antibiotics) sulfamethoxazole Allergy Rash/Hives Verified 06/15/23 13:41 [From Bactrim] trimethoprim [From Bactrim] Allergy Rash/Hives Verified 06/15/23 13:41 Physical Exam Vitals: Vital Signs Temp Pulse Pulse Pulse Resp BP BP 06/17/23 11:00 66 16 142/90 06/17/23 10:00 71 14 144/95 06/17/23 09:00 71 15 148/99 06/17/23 08:00 97.9 F 67 13 147/94 06/17/23 07:00 72 15 144/95 06/17/23 06:00 64 15 143/80 06/17/23 05:00 65 14 145/97 06/17/23 04:00 97.4 F L 67 15 144/106 06/17/23 03:00 66 14 145/97 06/17/23 02:00 62 7 L 148/88 06/17/23 01:00 68 7 L 140/88 06/17/23 00:21 97.6 F 70 17 140/88 06/17/23 00:00 67 16 150/94 06/16/23 23:00 70 19 146/93 06/16/23 22:00 75 12 132/85 06/16/23 21:00 77 21 150/93 06/16/23 20:00 98.8 F 15 132/89 06/16/23 19:00 74 19 155/96 06/16/23 18:59 98.6 F 74 16 132/89 06/16/23 18:00 81 13 149/94 06/16/23 17:00 74 29 H 140/90 06/16/23 16:44 98.8 F 77 20 140/90 06/16/23 16:30 73 20 154/95 06/16/23 16:24 72 20 154/95 06/16/23 16:15 80 20 151/102 06/16/23 16:14 99.5 F 90 16 148/93 06/16/23 16:00 98.0 F 65 20 147/88 06/16/23 15:00 70 16 131/80 06/16/23 14:54 70 16 139/89 06/16/23 14:46 98.9 F 71 18 142/94 06/16/23 14:32 99.7 F H 70 18 134/67 06/16/23 14:29 98.6 F 68 18 121/67 06/16/23 13:08 97.3 F L 66 18 134/86 06/16/23 12:48 97.3 F L 73 18 139/89 06/16/23 12:39 98.1 F 68 18 142/90 06/16/23 11:35 97.7 F 72 18 134/87 Pulse Ox 06/17/23 11:00 95 06/17/23 10:00 95 06/17/23 09:00 97 06/17/23 08:00 96 06/17/23 07:00 96 06/17/23 06:00 97 06/17/23 05:00 95 06/17/23 04:00 94 L 06/17/23 03:00 94 L 06/17/23 02:00 97 06/17/23 01:00 97 06/17/23 00:21 95 06/17/23 00:00 95 06/16/23 23:00 96 06/16/23 22:00 95 06/16/23 21:00 97 06/16/23 20:00 97 06/16/23 19:00 96 06/16/23 18:59 95 06/16/23 18:00 96 06/16/23 17:00 99 06/16/23 16:44 96 06/16/23 16:30 99 06/16/23 16:24 98 06/16/23 16:15 99 06/16/23 16:14 99 06/16/23 16:00 100 06/16/23 15:00 100 06/16/23 14:54 98 06/16/23 14:46 100 06/16/23 14:32 06/16/23 14:29 06/16/23 13:08 06/16/23 12:48 06/16/23 12:39 06/16/23 11:35 100 Intake and Output 06/16/23 06/17/23 06/17/23 22:59 06:59 14:59 Intake Total 1659 910 655 Output Total 500 250 500 Balance 1159 660 155 Intake: IV 1380 910 655 Ampicillin-Sulbactam 3 gm 100 100 In Sodium Chloride 0.9% 100 ml @ 200 mls/hr IVPB Q6HR [facility] Rx#:[id number] Ampicillin-Sulbactam 3 gm 100 In Sodium Chloride 0.9% 100 ml @ 200 mls/hr IVPB Q8HR [facility] Rx#:[id number] Dextrose 5% in Water 1, 240 450 225 000 ml @ 75 mls/hr IV . [id number] ONE with Sodium Bicarb (1 Meq/ml) 150 ml Rx#:[id number] Fluconazole in NaCl,Iso- 100 100 Osm 200 mg In Saline 1 100ml.bag @ 100 mls/hr IVPB DAILY [facility] Rx#: [id number] Invasive Line 1 30 20 10 Invasive Line 2 60 40 20 Lactated Ringers 1,000 ml 350 @ 75 mls/hr IV .[id number] [facility] Rx#:[id number] Magnesium Sulfate-D5w Pmx 100 1 gm In Dextrose/Water 1 100ml.bag @ 100 mls/hr IVPB ONCE ONE Rx#: [id number] Potassium Chloride 10 meq 300 200 300 In Water For Injection 1 100ml.bag @ 100 mls/hr IVPB Q1HR [facility] Rx#: [id number] Potassium Chloride 20 meq 100 In Water For Injection 1 100ml.bag @ 50 mls/hr IVPB Q2H [facility] Rx#: [id number] Blood Product 279 Rc Pheresis As-3 Unit 279 [id number] Output: Urine 500 250 500 Urine/Stool Mix 0 Other: Voiding Method External Catheter External Catheter External Catheter # Voids 0 1 # Bowel Movements 0 Weight 74.4 kg Results 06/17/23 05:50 06/17/23 05:50 Cardiac Enzymes 06/16/23 06/16/23 06/17/23 Range/Units 20:30 20:30 00:09 AST 21 (14-36) U/L Troponin I <0.012 <0.012 (0.000-0.034) ng/mL 06/17/23 06/17/23 Range/Units 05:50 05:50 AST 24 (14-36) U/L Troponin I <0.012 (0.000-0.034) ng/mL CBC 06/16/23 06/17/23 06/17/23 Range/Units 20:30 00:09 05:50 WBC 10.7 H 10.0 8.7 (3.8-10.6) k/uL RBC 2.77 L 2.65 L 2.84 L (3.80-5.40) m/uL Hgb 7.9 L 7.7 L 8.2 L (11.4-16.0) gm/dL Hct 23.9 L 23.3 L 24.8 L (34.0-46.0) % Plt Count 305 307 326 (150-450) k/uL Comprehensive Metabolic Panel 06/16/23 06/17/23 06/17/23 Range/Units 20:30 00:09 05:50 Sodium 140 141 (137-145) mmol/L Potassium 3.2 L 3.2 L 3.6 (3.5-5.1) mmol/L Chloride 116 H 115 H (98-107) mmol/L Carbon Dioxide 15 L 16 L (22-30) mmol/L BUN 18 H 14 (7-17) mg/dL Creatinine 0.89 0.78 (0.52-1.04) mg/dL Glucose 89 88 (74-99) mg/dL Calcium 7.7 L 7.8 L (8.4-10.2) mg/dL AST 21 24 (14-36) U/L ALT 16 18 (4-34) U/L Alkaline Phosphatase 76 78 (38-126) U/L Total Protein 4.4 L 4.6 L (6.3-8.2) g/dL Albumin 2.1 L 2.1 L (3.5-5.0) g/dL Current Medications Generic Name Dose Route Start Last Admin Trade Name Freq PRN Reason Stop Dose Admin Hydromorphone HCl 1 mg 06/16/23 15:44 06/17/23 09:20 Hydromorphone 1 Mg/Ml 1 Ml Syringe IVP 1 mg Q3HR PRN Administration Moderate to Severe Pain (4-10) Fluconazole/Sodium Chloride 100 mls @ 100 mls/hr 06/16/23 09:45 06/17/23 10:08 200 mg/ IV Solution IVPB 100 mls/hr DAILY [facility] Administration Protocol Ampicillin Sodium/Sulbactam 100 mls @ 200 mls/hr 06/16/23 19:00 06/17/23 06:26 Sodium 3 gm/ Sodium Chloride IVPB 200 mls/hr Q6HR [facility] Administration Protocol Sodium Bicarbonate 150 ml/ 1,150 mls @ 75 mls/hr 06/17/23 10:30 06/17/23 10:14 Dextrose/Water IV 75 mls/hr .[id number] [facility]ATH[facility] Administration Miscellaneous Information 1 each 06/17/23 02:24 Potassium Replacement Protocol 1 Each Misc MISCELLANE DAILY PRN Per Protocol Protocol Miscellaneous Information 1 each 06/17/23 03:00 Magnesium Replacement Protocol 1 Each Misc MISCELLANE DAILY PRN Per Protocol Protocol Miscellaneous Information 1 each 06/17/23 07:39 Potassium Replacement Protocol 1 Each Misc MISCELLANE DAILY PRN Per Protocol Protocol Naloxone HCl 0.2 mg 06/15/23 11:30 Naloxone 0.4 Mg/Ml 1 Ml Vial IV Q2M PRN Opioid Reversal Ondansetron HCl 4 mg 06/15/23 11:30 06/17/23 09:34 Ondansetron 4 Mg/2 Ml Vial IVP 4 mg Q8HR PRN Administration Nausea And Vomiting Pantoprazole Sodium 40 mg 06/15/23 21:00 06/17/23 09:19 Pantoprazole 40 Mg/10 Ml Vial IV 40 mg BID [facility] Administration Intake and Output 06/16/23 06/17/23 06/17/23 22:59 06:59 14:59 Intake Total 1659 910 655 Output Total 500 250 500 Balance 1159 660 155 Intake: IV 1380 910 655 Ampicillin-Sulbactam 3 gm 100 100 In Sodium Chloride 0.9% 100 ml @ 200 mls/hr IVPB Q6HR [facility] Rx#:[id number] Ampicillin-Sulbactam 3 gm 100 In Sodium Chloride 0.9% 100 ml @ 200 mls/hr IVPB Q8HR [facility] Rx#:[id number] Dextrose 5% in Water 1, 240 450 225 000 ml @ 75 mls/hr IV . [id number] ONE with Sodium Bicarb (1 Meq/ml) 150 ml Rx#:[id number] Fluconazole in NaCl,Iso- 100 100 Osm 200 mg In Saline 1 100ml.bag @ 100 mls/hr IVPB DAILY [facility] Rx#: [id number] Invasive Line 1 30 20 10 Invasive Line 2 60 40 20 Lactated Ringers 1,000 ml 350 @ 75 mls/hr IV .[id number] [facility] Rx#:[id number] Magnesium Sulfate-D5w Pmx 100 1 gm In Dextrose/Water 1 100ml.bag @ 100 mls/hr IVPB ONCE ONE Rx#: [id number] Potassium Chloride 10 meq 300 200 300 In Water For Injection 1 100ml.bag @ 100 mls/hr IVPB Q1HR [facility] Rx#: [id number] Potassium Chloride 20 meq 100 In Water For Injection 1 100ml.bag @ 50 mls/hr IVPB Q2H [facility] Rx#: [id number] Blood Product 279 Rc Pheresis As-3 Unit 279 [id number] Output: Urine 500 250 500 Urine/Stool Mix 0 Other: Voiding Method External Catheter External Catheter External Catheter # Voids 0 1 # Bowel Movements 0 Weight 74.4 kg 06/17/23 05:50 06/17/23 05:50
[2023-06-17] MEDS: METOPROLOL TARTRATE 5 MG/5 ML VIAL IVP SCH ×3 (12:14→23:58)
[2023-06-17 13:17] LABS: Anisocytosis Slight; HCT 25.8 % (34.0-46.0); HGB 8.6 gm/dL (11.4-16.0); Hypochromasia Moderate; MCH 29.1 pg (25.0-35.0); MCHC 33.2 g/dL (31.0-37.0); MCV 87.7 fL (80.0-100.0); Mean Platelet Volume 8.6; Platelet Count 343 k/uL (150-450); Poikilocytosis Slight; RBC 2.95 m/uL (3.80-5.40); RDW 16.6 % (11.5-15.5); WBC 8.8 k/uL (3.8-10.6)
[2023-06-17] MEDS: LORazepam 2 MG/ML INJ IV PRN (13:45)
--- NOTE | 2023-06-17 15:00 | P.PN ---
Subjective Progress Note Date: 06/17/23 ymes are normal urine has been negative urine drug screen was positive for benzo and cocaine patient noticed to have a wound to the dorsum aspect of the right foot for the patient did have a chest x-ray soft tissue swelling edema of the foot without evidence for fracture or bony erosion chest x-ray cardiomegaly mild pulm vascular congestion infectious disease was consulted for right foot wound most information has been obtained from review the chart as the patient remains to be lethargic and did not provide any history as far as right foot wound and the kind of treatment he is receiving for it ymes are normal urine has been negative urine drug screen was positive for benzo and cocaine patient noticed to have a wound to the dorsum aspect of the right foot for the patient did have a chest x-ray soft tissue swelling edema of the foot without evidence for fracture or bony erosion chest x-ray cardiomegaly mild pulm vascular congestion infectious disease was consulted for right foot wound most information has been obtained from review the chart as the patient remains to be lethargic and did not provide any history as far as right foot wound and the kind of treatment he is receiving for it -- CT of the abdomen and pelvis completed reveals upper abdomen inflammation likely secondary to perforated gastric ulcer; circumferential wall thickening of the gallbladder with hyperemia likely secondary to 1 -- Stat surgical consult is done -- Hemoglobin is down to 5.6; 2 units of packed RBCs are ordered -- Patient is being transferred to ICU 06/17/2023 Patient is seen and evaluated in room at bedside; patient had CT of the abdomen and pelvis completed yesterday which revealed perforated gastric ulcer; general surgery was consulted and patient was transferred to ICU Vital signs are reviewed and stable with temperature of 97.9, pulse 67, respiration 13 and blood pressure 147/94 White count is 8.7, hemoglobin 8.2, hematocrit 24.8, and platelet count 326,000. Sodium 141, potassium 3.6, chlorides 115, CO2 16, BUN 14, and creatinine 0.78. Albumin is 2.1. -- Patient has received a total of 4 units of packed RBCs; hemoglobin is stable at 8.2 General surgery and with the plans to take the patient to OR this afternoon; patient has been cleared by cardiology Objective - Vital Signs Vital signs: Vital Signs Temp 97.9 F 06/17/23 08:00 Pulse 66 06/17/23 11:00 Resp 16 06/17/23 11:00 BP 142/90 06/17/23 11:00 Pulse Ox 95 06/17/23 11:00 FiO2 Intake & Output 06/16/23 06/17/23 06/17/23 18:59 06:59 18:59 Intake Total 1383 1465 655 Output Total 350 400 500 Balance 1033 1065 155 Weight 74.4 kg Intake: IV 825 1465 655 Ampicillin-Sulbactam 3 gm 200 In Sodium Chloride 0.9% 100 ml @ 200 mls/hr IVPB Q6HR [facility] Rx#:[id number] Ampicillin-Sulbactam 3 gm 100 In Sodium Chloride 0.9% 100 ml @ 200 mls/hr IVPB Q8HR [facility] Rx#:[id number] Dextrose 5% in Water 1, 15 675 225 000 ml @ 75 mls/hr IV . [id number] ONE with Sodium Bicarb (1 Meq/ml) 150 ml Rx#:[id number] Fluconazole in NaCl,Iso- 100 100 Osm 200 mg In Saline 1 100ml.bag @ 100 mls/hr IVPB DAILY [facility] Rx#: [id number] Invasive Line 1 20 30 10 Invasive Line 2 40 60 20 Lactated Ringers 1,000 ml 350 @ 75 mls/hr IV .[id number] [facility] Rx#:[id number] Magnesium Sulfate-D5w Pmx 100 1 gm In Dextrose/Water 1 100ml.bag @ 100 mls/hr IVPB ONCE ONE Rx#: [id number] Potassium Chloride 10 meq 100 400 300 In Water For Injection 1 100ml.bag @ 100 mls/hr IVPB Q1HR [facility] Rx#: [id number] Potassium Chloride 20 meq 100 In Water For Injection 1 100ml.bag @ 50 mls/hr IVPB Q2H [facility] Rx#: [id number] Blood Product 558 Rc Pheresis As-3 Unit 279 [id number] Rc Pheresis As-3 Unit 279 [id number] Output: Urine 350 400 500 Urine/Stool Mix 0 Other: Voiding Method External Catheter External Catheter External Catheter # Voids 0 1 # Bowel Movements 0 - Exam Head exam: Present: atraumatic Eye exam: Present: normal appearance, PERRL Neck exam: Present: normal inspection. Absent: tenderness, meningismus Respiratory exam: Present: normal lung sounds bilaterally Cardiovascular Exam: Present: regular rate, normal rhythm GI/Abdominal exam: Present: soft. Absent: tenderness Extremities exam: Present: normal inspection Neurological exam: Present: person, place. Absent: time Motor strength exam: RUE: 5, LUE: 5, RLE: 5, LLE: 5 Eye Response: (2) open to pain Motor Response: (6) obeys commands Verbal Response: (4) confused conversation Psychiatric exam: Present: flat affect Skin exam: Present: other (Right dorsal foot with approximately 4 x 4 centimeter ulcer with foul odor. Stage III.) - Labs CBC & Chem 7: 06/17/23 12:39 06/17/23 12:39 Labs: Abnormal Lab Results - Last 24 Hours (Table) 06/15/23 06/16/23 06/16/23 Range/Units 09:35 20:30 20:30 WBC 10.7 H (3.8-10.6) k/uL RBC 2.77 L (3.80-5.40) m/uL Hgb 7.9 L (11.4-16.0) gm/dL Hct 23.9 L (34.0-46.0) % RDW 16.7 H (11.5-15.5) % Potassium 3.2 L (3.5-5.1) mmol/L Chloride 116 H (98-107) mmol/L Carbon Dioxide 15 L (22-30) mmol/L BUN 18 H (7-17) mg/dL Calcium 7.7 L (8.4-10.2) mg/dL Total Protein 4.4 L (6.3-8.2) g/dL Albumin 2.1 L (3.5-5.0) g/dL Crossmatch See Detail 06/17/23 06/17/23 06/17/23 Range/Units 00:09 00:09 05:50 WBC (3.8-10.6) k/uL RBC 2.65 L 2.84 L (3.80-5.40) m/uL Hgb 7.7 L 8.2 L (11.4-16.0) gm/dL Hct 23.3 L 24.8 L (34.0-46.0) % RDW 16.5 H 16.6 H (11.5-15.5) % Potassium 3.2 L (3.5-5.1) mmol/L Chloride (98-107) mmol/L Carbon Dioxide (22-30) mmol/L BUN (7-17) mg/dL Calcium (8.4-10.2) mg/dL Total Protein (6.3-8.2) g/dL Albumin (3.5-5.0) g/dL Crossmatch 06/17/23 Range/Units 05:50 WBC (3.8-10.6) k/uL RBC (3.80-5.40) m/uL Hgb (11.4-16.0) gm/dL Hct (34.0-46.0) % RDW (11.5-15.5) % Potassium (3.5-5.1) mmol/L Chloride 115 H (98-107) mmol/L Carbon Dioxide 16 L (22-30) mmol/L BUN (7-17) mg/dL Calcium 7.8 L (8.4-10.2) mg/dL Total Protein 4.6 L (6.3-8.2) g/dL Albumin 2.1 L (3.5-5.0) g/dL Crossmatch Assessment and Plan Assessment: 1. Altered mental status; likely multifactorial related to polysubstance abuse versus AK I/dehydration - We will monitor neuro checks per protocol; consult neurology 2. Acute renal injury/dehydration - BUN/creatinine elevated at 47/2.29 -- We will start patient on IV fluid hydration form of normal saline at a rate of 100 mL an hour; monitor strict KATERINE's, daily weights, renal function and electrolytes - Avoid nephrotoxins and hypotension 3. Severe anemia; patient received 2 units packed RBCs in ED; we will monitor H&H every 6 hours with plans to transfuse if hemoglobin is less than 7.0; stool occult blood on stool specimens; Protonix 40 mg IV every 12 hours -- Consult general surgery 4. Electrolyte imbalance; supplemented in ED; monitor electrolytes closely and supplement as needed 5. Polysubstance abuse; urine drug screen is positive for opiates, benzodiazepines and marijuana 6. Hypertension; metoprolol 12.5 mg twice a day 7. Depression/anxiety; patient takes Wellbutrin, Zoloft and BuSpar DVT prophylaxis; SCDs only CODE STATUS; full code
[2023-06-17 19:09] LABS: Anisocytosis Slight; HCT 22.8 % (34.0-46.0); HGB 7.5 gm/dL (11.4-16.0); Hypochromasia Slight; MCH 28.3 pg (25.0-35.0); MCHC 32.8 g/dL (31.0-37.0); MCV 86.3 fL (80.0-100.0); Mean Platelet Volume 8.1; Platelet Count 334 k/uL (150-450); Poikilocytosis Slight; RBC 2.65 m/uL (3.80-5.40); RDW 16.7 % (11.5-15.5); WBC 7.3 k/uL (3.8-10.6)
--- NOTE | 2023-06-17 19:57 | P.PN ---
Subjective Progress Note Date: 06/17/23 Principal diagnosis: Reason for follow-up with perforated peptic ulcer disease and leukocytosis Patient is a 47-year-old female with a past medical history significant for polysubstance abuse history of drug overdose pneumonia patient was brought into the ER by her mother for evaluation of intermittent confusion patient noticed to have a elevated white count that has prompted this infectious disease consultation further workup was done and the patient did have a CT of abdominal pelvis completed 06/16/2023 that was reported with possible perforation of the peptic ulcer disease. On today's evaluation that is 06/17/2023 the patient remains to be afebrile, patient is breathing comfortably on room air the patient denies having any chest pain or cough epigastric pain is currently controlled no nausea vomiting or diarrhea. The patient white count is 7.3 creatinine 0.78. Objective - Vital Signs Vital signs: Vital Signs Temp 98.4 F 06/17/23 12:00 Pulse 89 06/17/23 12:00 Resp 16 06/17/23 12:00 BP 142/90 06/17/23 11:00 Pulse Ox 97 06/17/23 12:00 FiO2 Intake & Output 06/16/23 06/17/23 06/17/23 18:59 06:59 18:59 Intake Total 1383 1465 860 Output Total 350 400 500 Balance 1033 1065 360 Weight 74.4 kg Intake: IV 825 1465 860 Ampicillin-Sulbactam 3 gm 200 100 In Sodium Chloride 0.9% 100 ml @ 200 mls/hr IVPB Q6HR [facility] Rx#:[id number] Ampicillin-Sulbactam 3 gm 100 In Sodium Chloride 0.9% 100 ml @ 200 mls/hr IVPB Q8HR [facility] Rx#:[id number] Dextrose 5% in Water 1, 15 675 300 000 ml @ 75 mls/hr IV . [id number] ONE with Sodium Bicarb (1 Meq/ml) 150 ml Rx#:[id number] Fluconazole in NaCl,Iso- 100 100 Osm 200 mg In Saline 1 100ml.bag @ 100 mls/hr IVPB DAILY [facility] Rx#: [id number] Invasive Line 1 20 30 20 Invasive Line 2 40 60 40 Lactated Ringers 1,000 ml 350 @ 75 mls/hr IV .[id number] [facility] Rx#:[id number] Magnesium Sulfate-D5w Pmx 100 1 gm In Dextrose/Water 1 100ml.bag @ 100 mls/hr IVPB ONCE ONE Rx#: [id number] Potassium Chloride 10 meq 100 400 300 In Water For Injection 1 100ml.bag @ 100 mls/hr IVPB Q1HR [facility] Rx#: [id number] Potassium Chloride 20 meq 100 In Water For Injection 1 100ml.bag @ 50 mls/hr IVPB Q2H [facility] Rx#: [id number] Blood Product 558 Rc Pheresis As-3 Unit 279 [id number] Rc Pheresis As-3 Unit 279 [id number] Output: Urine 350 400 500 Urine/Stool Mix 0 Other: Voiding Method External Catheter External Catheter Diaper External Catheter # Voids 0 1 # Bowel Movements 0 - Exam GENERAL DESCRIPTION: Middle-age lying in bed in no distress RESPIRATORY SYSTEM: Unlabored breathing , decreased breath sounds at bases HEART: S1 S2 regular rate and rhythm , ABDOMEN: Soft , mild epigastric tenderness EXTREMITIES: No edema feet - Labs CBC & Chem 7: 06/17/23 18:10 06/17/23 12:39 Labs: Abnormal Lab Results - Last 24 Hours (Table) 06/15/23 06/16/23 06/16/23 Range/Units 09:35 20:30 20:30 WBC 10.7 H (3.8-10.6) k/uL RBC 2.77 L (3.80-5.40) m/uL Hgb 7.9 L (11.4-16.0) gm/dL Hct 23.9 L (34.0-46.0) % RDW 16.7 H (11.5-15.5) % Potassium 3.2 L (3.5-5.1) mmol/L Chloride 116 H (98-107) mmol/L Carbon Dioxide 15 L (22-30) mmol/L BUN 18 H (7-17) mg/dL Calcium 7.7 L (8.4-10.2) mg/dL Total Protein 4.4 L (6.3-8.2) g/dL Albumin 2.1 L (3.5-5.0) g/dL Crossmatch See Detail 06/17/23 06/17/23 06/17/23 Range/Units 00:09 00:09 05:50 WBC (3.8-10.6) k/uL RBC 2.65 L 2.84 L (3.80-5.40) m/uL Hgb 7.7 L 8.2 L (11.4-16.0) gm/dL Hct 23.3 L 24.8 L (34.0-46.0) % RDW 16.5 H 16.6 H (11.5-15.5) % Potassium 3.2 L (3.5-5.1) mmol/L Chloride (98-107) mmol/L Carbon Dioxide (22-30) mmol/L BUN (7-17) mg/dL Calcium (8.4-10.2) mg/dL Total Protein (6.3-8.2) g/dL Albumin (3.5-5.0) g/dL Crossmatch 06/17/23 Range/Units 05:50 WBC (3.8-10.6) k/uL RBC (3.80-5.40) m/uL Hgb (11.4-16.0) gm/dL Hct (34.0-46.0) % RDW (11.5-15.5) % Potassium (3.5-5.1) mmol/L Chloride 115 H (98-107) mmol/L Carbon Dioxide 16 L (22-30) mmol/L BUN (7-17) mg/dL Calcium 7.8 L (8.4-10.2) mg/dL Total Protein 4.6 L (6.3-8.2) g/dL Albumin 2.1 L (3.5-5.0) g/dL Crossmatch Assessment and Plan (1) Leukocytosis Current Visit: Yes Status: Acute Code(s): D72.829 - ELEVATED WHITE BLOOD CELL COUNT, UNSPECIFIED SNOMED Code(s): 621773511 (2) Perforated peptic ulcer Current Visit: Yes Status: Acute Code(s): K27.5 - CHRONIC OR UNSP PEPTIC ULCER, SITE UNSP, WITH PERFORATION SNOMED Code(s): 30936121 (3) Peritonitis Current Visit: Yes Status: Acute Code(s): K65.9 - PERITONITIS, UNSPECIFIED SNOMED Code(s): 95581618 (4) Allergy to sulfa drugs Current Visit: Yes Status: Acute Code(s): Z88.2 - ALLERGY STATUS TO SULFONAMIDES SNOMED Code(s): 65511829 Plan: 1patient presented hospital with intermittent confusion and mental status changes patient was noticed to have elevated white count also anemia initial workup was negative with a CT abdominal pelvis showing evidence of perforated peptic ulcer disease 2General surgery has evaluated the patient and possible plan for surgery this afternoon patient is currently n.p.o. 3we will keep the patient on Unasyn and Diflucan and monitor clinical course closely Dictation was produced using [email or web address] dictation software. please excuse any grammatical, word or spelling errors.
--- NOTE | 2023-06-17 20:02 | P.PN ---
Progress Note - Text Progress Note Date: 06/17/23 Discussion with radiologist on-call confirms pre-existing chronic gastric perforation with localized pneumoperitoneum from over 2 weeks ago when compared to CT scan performed Jun 03. CT demonstrates more progressive findings with surrounding edema. Nurse reports that patient now has hematemesis, 500-mL. Patient re-evaluated with less than 1 g drop in Hgb. She is hemodynamically stable. Review of placement of central lines for hemodynamic monitoring reviewed including prolonged intubation. As this is the patient's 2nd perforation from recent ulcer repair done by Dr. Chawla from [facility], she is aware of placement of drains and stay in ICU. Anticipated hospitalization for over 7 days reviewed. She is overall elevated risk with pre-existing co-morbidities.
[2023-06-17] MEDS ORDERED: PROPOFOL 10 MG/ML 20 ML VIAL IV ONE (20:15)
[2023-06-17] MEDS ORDERED: SUCCINYLCHOLINE CHLORIDE 200 MG/10 ML VIAL IV ONE (20:15)
[2023-06-17] MEDS ORDERED: ePHEDrine 50 MG/ML 1 ML VIAL ONE (20:15)
[2023-06-17] MEDS ORDERED: ROCURONIUM 10 MG/ML (5 ML VIAL) IV ONE (20:15)
[2023-06-17] MEDS ORDERED: PHENYLEPHRINE-0.9% NACL SYG 1,000 MCG/10 ML SYRINGE ONE (20:15)
[2023-06-17] MEDS ORDERED: fentaNYL (PF) 50 MCG/ML 2 ML AMP ONE (20:15)
[2023-06-17] MEDS ORDERED: LIDOCAINE 2% (PF) 20 MG/ML 5 ML VIAL ONE (20:15)
[2023-06-17] MEDS ORDERED: MIDAZOLAM 2 MG/2 ML VIAL ONE (20:15)
[2023-06-17] MEDS ORDERED: LACTATED RINGERS 1,000 ML IV ONE ×2 (20:20→22:02)
[2023-06-17 23:11] LABS: % Iron Saturation 6.77 (12.00-45.00)
[2023-06-17] MEDS ORDERED: propofoL 100 ML IV ONE (23:20)
--- NOTE | 2023-06-17 23:24 | P.OP ---
Date of Procedure: 06/17/23 Description of Procedure: SURGEON: RC GEORGES MD CERTIFIED HEALTH EDUCATION SPECIALIST: NONE. PREOPERATIVE DIAGNOSIS: 1. Acute on chronic perforated duodenal ulcer 2. Hematemesis 3. Abnormal computed tomography scan with epigastric pneumoperitoneum 4. Tobacco abuse 5. Tobacco cessation and counseling 6. History of polysubstance abuse 7. Generalized anxiety disorder 8. Acute kidney failure due to dehydration 9. Acute anemia due to perforated duodenal POSTOPERATIVE DIAGNOSIS: 1. Acute on chronic perforated duodenal ulcer 2. Hematemesis 3. Abnormal computed tomography scan with epigastric pneumoperitoneum 4. Tobacco abuse 5. Tobacco cessation and counseling 6. History of polysubstance abuse 7. Generalized anxiety disorder 8. Acute kidney failure due to dehydration 9. Acute anemia due to perforated duodenal 10. Peritoneal adhesions OPERATION: 1. Exploratory laparotomy with lysis of adhesions, over 1.5 hours 2. Intraoperative esophagogastroduodenoscopy with gastric lavage, 500 mL iced sterile water 3. Placement of round #19 HARRIET drain anterior duodenal ulcer, right 4. Peritoneal lavage 2 L normal saline 5. Application of 20 cm PREVENA incisional wound VAC system 6. Placement of round #19 HARRIET drain pelvis, right ANESTHESIA: General ESTIMATED BLOOD LOSS: 50 mL SPECIMENS REMOVED: Aerobic and anaerobic culture peritoneal fluid CONDITION: Guarded DISPOSITION: To the ICU COMPLICATIONS: None. OPERATIVE FINDINGS: 1. Severe epigastric adhesions along the anterior posterior duodenum with seal for prior perforation 2. Intraoperative upper endoscopy demonstrates negative leak test 3. Moderate clots removed from stomach using flushed iced sterile water, 500 mL during upper endoscopy 4. NG tube secured at antrum 5. Endoscope advanced into the third portion of duodenum without leak INDICATIONS: The patient is a 47-year-old female with prior history of recent d uodenal perforation 3 months ago February 2023 at [facility]. She reports continued smoking and not adherent to her ulcer medications 2 weeks ago, patient presented and was hospitalized with abdominal pain were upper endoscopy was performed including computed tomography scan. She was discharged. Patient presented in acute renal failure, anemia, hypokalemic with a computed tomography scan demonstrating gastric/duodenal perforation. Patient initially declined surgery as she denied moderate abdominal pain. Additionally, patient was optimized with correction of acute renal failure, hypokalemia, anemia following blood transfusions when transferred to the ICU. Patient was reassessed today and then reported persistent abdominal pain and opted for surgery. She had hematemesis. Urgent surgical intervention was advised with exploratory laparotomy, repair of duodenal ulcer, placement of drain, including nasogastric tube including prolonged nothing by mouth status, prolonged intubation. Benefits and risks of the procedures were discussed. Informed consent was obtained. DESCRIPTION: The patient was brought to the operating room. After general induction, a Hdz catheter was placed. The abdomen was prepped and draped in standard sterile fashion. Ioban draping was also placed. Prior to incision, a timeout protocol was confirmed with surgical team regarding patient's name including procedures to be performed. Preoperative medications were confirmed. A #10 blade was used to enter along the epigastrium at the prior cicatrix and extended down to below the umbilicus. Carefully the abdomen was entered using electro- Bovie cautery with moderate adhesions identified. No turbid ascites or peritoneal fluid was identified. After extensive lysis of adhesions, the anterior stomach including gallbladder and adhesions were dissected free as corresponding to her computed tomography scan. The gallbladder was adherent to the anterior wall of the duodenum which lysis of adhesions over 30 minutes was performed. No bile staining was found with adhesions. The abdomen was irrigated with normal saline solution to perform a leak test. Total extensive lysis of adhesions 1.5 hours performed. I went to the head of the bed to perform upper endoscopy. The scope was entered into the stomach where blood clots were identified and initially flushed with saline. The scope was passed to the antrum which was fairly unremarkable. Clots were found along the first portion of the duodenum. The stomach was insufflated without any air leaks or continued perforation identified. Nasogastric tube was placed by the nurse assisted living housekeeper assist. The stomach was lavaged with 100 mL of sterile water to suction clots. I re-scrubbed into the case of the stomach was insufflated. The stomach was palpated including all the nasogastric tube. The scope was palpated along the third portion of the duodenum with endoscopic imaging obtained confirming complete seal of prior perforation. The scope was slowly withdrawn by the nurse assisted living housekeeper assist. No leaks were identified doing a leak test. Round #19 HARRIET drain was placed anterior to the duodenal repair. Another HARRIET drain was positioned on the right pelvis and exited at the right upper quadrant .The HARRIET drains exited via the right upper quadrant and sewn in using 2-0 nylon. HARRIET bulbs was attached to negative suction. Hemostasis was excellent throughout the case. The abdomen was closed using double stranded 0 PDS. The skin was cleansed using dilute hydrogen peroxide. A 20-cm PREVENA incisional wound VAC dressing was placed with intact seal. At the end of the procedure, needle, sponge, and instrument count had been verified correct by the cardiovascular surgical tech. I went to the head of the bed where additional gastric lavage was performed for a total of 500 mL. Gastric lavage using iced sterile water was performed until clear. The patient was sent to the intensive care unit intubated. Intraoperative findings were discussed with her father Mk, , including anticipated hospitalization of 7-10 days, prolonged nothing by mouth status, IV antibiotics.
[2023-06-17] MEDS: ACETAMINOPHEN IV (For NPO) 1,000 MG in EMPTY BAG 1 BAG IVPB SCH (23:59)
--- NOTE | 2023-06-18 00:23 | XR ---
EXAM: XR Chest, 1 View CLINICAL HISTORY: ITS.REASON XR Reason: Tube placement TECHNIQUE: Frontal view of the chest. COMPARISON: 06/15/23 FINDINGS: Lungs: Reduced lung volumes. Mild bilateral suprahilar opacities, increased from prior. Left retrocardiac opacities have also developed. Pleural space: Unremarkable. No pleural effusion or pneumothorax. Heart: Unremarkable. Normal heart size. Bones/joints: No acute fracture. No dislocation. Tubes, lines and devices: Endotracheal tube terminates 3.2 cm from the shaw. Enteric tube extends to the stomach. IMPRESSION: 1. Endotracheal tube and enteric tube have been placed. 2. Mild bilateral suprahilar opacities have developed in the interval, along with left retrocardiac opacity. Findings could reflect atelectasis or pneumonia.
[2023-06-18] MEDS: DEXTROSE 5% IN WATER 1,000 ML with SODIUM BICARB (1 MEQ/ML) 150 ML IV SCH (01:03)
[2023-06-18 01:05] LABS: Allen Test Performed? Yes
[2023-06-18 01:29] LABS: Anisocytosis Slight; HCT 21.6 % (34.0-46.0); Hypochromasia Moderate; MCH 28.8 pg (25.0-35.0); MCHC 32.4 g/dL (31.0-37.0); MCV 88.9 fL (80.0-100.0); Mean Platelet Volume 7.9; Platelet Count 371 k/uL (150-450); Poikilocytosis Slight; RBC 2.43 m/uL (3.80-5.40); RDW 16.8 % (11.5-15.5); WBC 13.5 k/uL (3.8-10.6)
[2023-06-18] MEDS: HYDROmorphone 1 MG/ML 1 ML SYRINGE IVP PRN ×7 (01:51→20:20)
[2023-06-18 01:53] LABS: ABG Base Excess -2.4 mmol/L; ABG HCO3 23 mmol/L (21-25); ABG PCO2 44 mmHg (35-45); ABG PH 7.34 (7.35-7.45); ABG PO2 102 mmHg (83-108); ABG TCO2 25 mmol/L (19-24)
[2023-06-18] MEDS: METOPROLOL TARTRATE 5 MG/5 ML VIAL IVP SCH ×4 (05:10→23:03)
[2023-06-18] MEDS: ACETAMINOPHEN IV (For NPO) 1,000 MG in EMPTY BAG 1 BAG IVPB SCH ×4 (05:11→23:06)
[2023-06-18] MEDS: AMPICILLIN-SULBACTAM 3 GM in SODIUM CHLORIDE 0.9% 100 ML IVPB SCH ×4 (05:11→23:17)
--- NOTE | 2023-06-18 07:22 | P.PN ---
Subjective Progress Note Date: 06/18/23 PROGRESS NOTE The patient is a 47-year-old female with history of polysubstance abuse, who presented with abdominal discomfort, change in mental status and was found to have perforated gastric ulcer. She underwent surgical intervention. Cardiology consultation was requested because of abnormal EKG. The patient is intubated, awake and alert. Hemodynamically stable, in sinus mechanism. She had anemia on presentation and received transfusions. She has good urinary output. There is no evidence of arrhythmia. Medications: Metoprolol 2.5 mg IV every 6 hours, flucanazole, Unasyn PHYSICAL EXAMINATION: Blood pressure 106/70 heart rate 80 LUNGS: Clear to auscultation HEART: Regular rate and rhythm, S1, S2. No S3. No systolic murmur ABDOMEN: Soft, hypoactive bowel sounds, no organomegaly EXTREMETIES: No edema LAB: WBC 13.5, hemoglobin 7. IMPRESSION: 1. Status post perforated gastric ulcer repair 2. Respiratory failure, patient is intubated, alert., Intubated 3. Anemia 4. History of polysubstance abuse PLAN: 1. Continue IV beta blockers for now 2. Obtain an echocardiogram 3. Probably wean and extubate today 4. Depending on her progress further recommendations will be made Objective - Vital Signs Vital signs: Vital Signs Temp 97.9 F 06/18/23 05:06 Pulse 84 06/18/23 06:00 Resp 18 06/18/23 06:00 BP 106/73 06/18/23 06:00 Pulse Ox 98 06/18/23 06:00 FiO2 30 06/18/23 04:00 Intake & Output 06/17/23 06/18/23 06/18/23 18:59 06:59 18:59 Intake Total 1440 2970.102 Output Total 500 770 Balance 940 2200.102 Weight 78.8 kg Intake: IV 1440 2475 ACETAMINOPHEN IV (For NPO 100 ) 1,000 mg In Empty Bag 1 bag @ 400 mls/hr IVPB Q6HR [facility] Rx#:[id number] Ampicillin-Sulbactam 3 gm 200 200 In Sodium Chloride 0.9% 100 ml @ 200 mls/hr IVPB Q6HR [facility] Rx#:[id number] Dextrose 5% in Water 1, 750 675 000 ml @ 75 mls/hr IV . [id number] ONE with Sodium Bicarb (1 Meq/ml) 150 ml Rx#:[id number] Fluconazole in NaCl,Iso- 100 Osm 200 mg In Saline 1 100ml.bag @ 100 mls/hr IVPB DAILY [facility] Rx#: [id number] Invasive Line 1 30 Invasive Line 2 60 Potassium Chloride 10 meq 300 In Water For Injection 1 100ml.bag @ 100 mls/hr IVPB Q1HR [facility] Rx#: [id number] Intake, IV Titration 74.102 Amount propofoL 1,000 mg In 74.102 Empty Bag 1 bag @ 15 MCG/ KG/MIN 6.696 mls/hr IV . [id number] [facility] Rx#:[id number] Blood Product 271 Rc Pheresis As-3 Unit 271 [id number] Other 150 Rc Pheresis As-3 Unit 150 [id number] Output: Drainage 165 HARRIET Drain #1 RUQ ( 60 Dudodenal) HARRIET Drain #2 RUQ (Pelvic) 105 Urine 500 555 Estimated Blood Loss 50 Other: Voiding Method Diaper Indwelling Catheter External Catheter # Voids 1 - Labs CBC & Chem 7: 06/18/23 01:18 06/17/23 12:39 Labs: Abnormal Lab Results - Last 24 Hours (Table) 06/15/23 06/17/23 06/17/23 Range/Units 09:35 05:50 12:39 WBC (3.8-10.6) k/uL RBC 2.95 L (3.80-5.40) m/uL Hgb 8.6 L (11.4-16.0) gm/dL Hct 25.8 L (34.0-46.0) % RDW 16.6 H (11.5-15.5) % ABG pH (7.35-7.45) ABG Total CO2 (19-24) mmol/L ABG O2 Saturation (94-97) % Chloride 115 H (98-107) mmol/L Carbon Dioxide 16 L (22-30) mmol/L Calcium 7.8 L (8.4-10.2) mg/dL Iron (50-170) UG/DL TIBC (228-460) UG/DL % Saturation (12.00-45.00) Transferrin (204.0-354.0) mg/dL Total Protein 4.6 L (6.3-8.2) g/dL Albumin 2.1 L (3.5-5.0) g/dL Crossmatch See Detail 06/17/23 06/17/23 06/18/23 Range/Units 12:39 18:10 01:00 WBC (3.8-10.6) k/uL RBC 2.65 L (3.80-5.40) m/uL Hgb 7.5 L (11.4-16.0) gm/dL Hct 22.8 L (34.0-46.0) % RDW 16.7 H (11.5-15.5) % ABG pH 7.34 L (7.35-7.45) ABG Total CO2 25 H (19-24) mmol/L ABG O2 Saturation 98.0 H (94-97) % Chloride (98-107) mmol/L Carbon Dioxide (22-30) mmol/L Calcium (8.4-10.2) mg/dL Iron 13 L (50-170) UG/DL TIBC 192 L (228-460) UG/DL % Saturation 6.77 L (12.00-45.00) Transferrin 137.0 L (204.0-354.0) mg/dL Total Protein (6.3-8.2) g/dL Albumin (3.5-5.0) g/dL Crossmatch 06/18/23 Range/Units 01:18 WBC 13.5 H (3.8-10.6) k/uL RBC 2.43 L (3.80-5.40) m/uL Hgb 7.0 L (11.4-16.0) gm/dL Hct 21.6 L (34.0-46.0) % RDW 16.8 H (11.5-15.5) % ABG pH (7.35-7.45) ABG Total CO2 (19-24) mmol/L ABG O2 Saturation (94-97) % Chloride (98-107) mmol/L Carbon Dioxide (22-30) mmol/L Calcium (8.4-10.2) mg/dL Iron (50-170) UG/DL TIBC (228-460) UG/DL % Saturation (12.00-45.00) Transferrin (204.0-354.0) mg/dL Total Protein (6.3-8.2) g/dL Albumin (3.5-5.0) g/dL Crossmatch Microbiology - Last 24 Hours (Table) 06/16/23 06:04 Blood Culture Gram Stain - Preliminary Blood
[2023-06-18 07:27] LABS: Anisocytosis Slight; Basophils % (A) 0 %; Eosinophils # (A) 0.2 k/uL (0-0.7); Eosinophils % (A) 2 %; HGB 7.4 gm/dL (11.4-16.0); Hypochromasia Slight; Lymphocytes % (A) 21 %; MCH 29.3 pg (25.0-35.0); MCHC 33.6 g/dL (31.0-37.0); MCV 87.2 fL (80.0-100.0); Monocytes # (A) 0.5 k/uL (0-1.0); Monocytes % (A) 5 %; Neutrophils # (A) 6.7 k/uL (1.3-7.7); Neutrophils % (A) 71 %; Platelet Count 336 k/uL (150-450); Poikilocytosis Slight; RBC 2.52 m/uL (3.80-5.40); RDW 16.3 % (11.5-15.5); WBC 9.5 k/uL (3.8-10.6)
[2023-06-18 07:38] LABS: African American GFR (CKD) >90 (>60 ml/min/1.73 sqM); Anion Gap 4 mmol/L; Blood Urea Nitrogen 8 mg/dL (7-17); Calcium 7.2 mg/dL (8.4-10.2); Carbon Dioxide 23 mmol/L (22-30); Chloride 112 mmol/L (98-107); Glucose 91 mg/dL (74-99); Magnesium 1.5 mg/dL (1.6-2.3); Non-African American GFR(CKD) >90 (>60 ml/min/1.73 sqM); Potassium 3.6 mmol/L (3.5-5.1); Sodium 139 mmol/L (137-145)
[2023-06-18] MEDS: PANTOPRAZOLE 40 MG/10 ML VIAL IV SCH ×2 (08:08→20:20)
[2023-06-18] MEDS: FLUCONAZOLE IN NACL,ISO-OSM 200 MG in SALINE 1 100ML.BAG IVPB SCH (08:09)
--- NOTE | 2023-06-18 08:20 | P.PN ---
Subjective Progress Note Date: 06/18/23 CHIEF COMPLAINT: Abdominal pain HISTORY OF PRESENT ILLNESS: The patient is a 47 year old female who presented with chronic perforated duodenal ulcer. She is POD 1, status post exploratory laparotomy, gastric lavage, intraoperative EGD. She is awake and on the vent. NG is bilious, no longer bloody. Per nurse, she was given 1 u pRBCs over night. Hgb now 7.4. Pain controlled. REVIEW OF ORGAN SYSTEMS: No fevers or chills. No shortness of breath. PHYSICAL EXAM: VITALS: Reviewed CONSTITUTIONAL: Well developed and in no acute distress. EYES: Conjuctivae without sclera icterus. Extraocular movements grossly intact. HEAD, EARS, NOSE, THROAT: Moist buccal mucosa. Head is atraumatic, normocepha lic. Hears conversational speech. No nasal drainage. RESPIRATORY: Non-labored respirations and equal bilateral excursions. No gross wheezes. CARDIOVASCULAR: Palpable 2+ radial pulses. ABDOMEN: Incision clean, dry and intact. MUSCULOSKELETAL: No clubbing cyanosis or edema SKIN: Warm and well perfused with good skin turgor. NEUROLOGIC: Cranial nerves II through XII grossly intact. No focal or lateralizing signs. PSYCH: Flat affect. Alert and oriented to person, place and time. Displays appropriate insight. CLINCAL LABS: Reviewed. WBC normal. Hgb 7.4. Total 4 u PRBCs during current hospitalization. STUDIES: Chest xray independently reviewed with NG in proper position. ASSESSMENT: 1. Duodenal ulcer, recurrent 2. Localized pneumoperitoneum 3. Acute anemia 4. Acute kidney injury 5. Tobacco abuse 6. Hematemesis PLAN: 1. PICC line for TPN 2. Pain management adjustment with history of polysubstance abuse. 3. Protonix 40 mg BID 4. Strict NPO 5. Avoid heparin, lovenox, chemical DVT prophylaxis for acute blood loss anemia. 6. Wean vent per ICU 7. Continue ICU carre. Objective - Vital Signs Vital signs: Vital Signs Temp 97.9 F 06/18/23 05:06 Pulse 87 06/18/23 07:00 Resp 20 06/18/23 07:00 BP 99/72 06/18/23 07:00 Pulse Ox 99 06/18/23 07:00 FiO2 30 06/18/23 07:43 Intake & Output 06/17/23 06/18/23 06/18/23 18:59 06:59 18:59 Intake Total 1440 2970.102 122.542 Output Total 500 770 210 Balance 940 2200.102 -87.458 Weight 78.8 kg Intake: IV 1440 2475 75 ACETAMINOPHEN IV (For NPO 100 ) 1,000 mg In Empty Bag 1 bag @ 400 mls/hr IVPB Q6HR [facility] Rx#:[id number] Ampicillin-Sulbactam 3 gm 200 200 In Sodium Chloride 0.9% 100 ml @ 200 mls/hr IVPB Q6HR [facility] Rx#:[id number] Dextrose 5% in Water 1, 750 675 75 000 ml @ 75 mls/hr IV . [id number] ONE with Sodium Bicarb (1 Meq/ml) 150 ml Rx#:[id number] Fluconazole in NaCl,Iso- 100 Osm 200 mg In Saline 1 100ml.bag @ 100 mls/hr IVPB DAILY [facility] Rx#: [id number] Invasive Line 1 30 Invasive Line 2 60 Potassium Chloride 10 meq 300 In Water For Injection 1 100ml.bag @ 100 mls/hr IVPB Q1HR [facility] Rx#: [id number] Intake, IV Titration 74.102 47.542 Amount propofoL 1,000 mg In 74.102 47.542 Empty Bag 1 bag @ 15 MCG/ KG/MIN 6.696 mls/hr IV . [id number] [facility] Rx#:[id number] Blood Product 271 Rc Pheresis As-3 Unit 271 [id number] Other 150 Rc Pheresis As-3 Unit 150 [id number] Output: Gastric Drainage 100 Drainage 165 40 HARRIET Drain #1 RUQ ( 60 25 Dudodenal) HARRIET Drain #2 RUQ (Pelvic) 105 15 Urine 500 555 70 Estimated Blood Loss 50 Other: Voiding Method Diaper Indwelling Catheter External Catheter # Voids 1 - Labs CBC & Chem 7: 06/18/23 07:15 06/18/23 07:15 Labs: Abnormal Lab Results - Last 24 Hours (Table) 06/15/23 06/17/23 06/17/23 Range/Units 09:35 12:39 12:39 WBC (3.8-10.6) k/uL RBC 2.95 L (3.80-5.40) m/uL Hgb 8.6 L (11.4-16.0) gm/dL Hct 25.8 L (34.0-46.0) % RDW 16.6 H (11.5-15.5) % ABG pH (7.35-7.45) ABG Total CO2 (19-24) mmol/L ABG O2 Saturation (94-97) % Chloride (98-107) mmol/L Calcium (8.4-10.2) mg/dL Magnesium (1.6-2.3) mg/dL Iron 13 L (50-170) UG/DL TIBC 192 L (228-460) UG/DL % Saturation 6.77 L (12.00-45.00) Transferrin 137.0 L (204.0-354.0) mg/dL Crossmatch See Detail 06/17/23 06/18/23 06/18/23 Range/Units 18:10 01:00 01:18 WBC 13.5 H (3.8-10.6) k/uL RBC 2.65 L 2.43 L (3.80-5.40) m/uL Hgb 7.5 L 7.0 L (11.4-16.0) gm/dL Hct 22.8 L 21.6 L (34.0-46.0) % RDW 16.7 H 16.8 H (11.5-15.5) % ABG pH 7.34 L (7.35-7.45) ABG Total CO2 25 H (19-24) mmol/L ABG O2 Saturation 98.0 H (94-97) % Chloride (98-107) mmol/L Calcium (8.4-10.2) mg/dL Magnesium (1.6-2.3) mg/dL Iron (50-170) UG/DL TIBC (228-460) UG/DL % Saturation (12.00-45.00) Transferrin (204.0-354.0) mg/dL Crossmatch 06/18/23 06/18/23 Range/Units 07:15 07:15 WBC (3.8-10.6) k/uL RBC 2.52 L (3.80-5.40) m/uL Hgb 7.4 L (11.4-16.0) gm/dL Hct 22.0 L (34.0-46.0) % RDW 16.3 H (11.5-15.5) % ABG pH (7.35-7.45) ABG Total CO2 (19-24) mmol/L ABG O2 Saturation (94-97) % Chloride 112 H (98-107) mmol/L Calcium 7.2 L (8.4-10.2) mg/dL Magnesium 1.5 L (1.6-2.3) mg/dL Iron (50-170) UG/DL TIBC (228-460) UG/DL % Saturation (12.00-45.00) Transferrin (204.0-354.0) mg/dL Crossmatch Microbiology - Last 24 Hours (Table) 06/16/23 06:04 Blood Culture Gram Stain - Preliminary Blood
[2023-06-18] MEDS: POTASSIUM CHLORIDE 10 MEQ in WATER FOR INJECTION 1 100ML.BAG IVPB SCH ×5 (08:56→23:42)
[2023-06-18] MEDS ORDERED: CHLORHEXIDINE GLUCONATE 15 ML CUP MUCOUS MEM SCH (09:00)
--- NOTE | 2023-06-18 09:23 | P.PN ---
Subjective Progress Note Date: 06/18/23 On today's evaluation of 06/18/2023, I'm seeing the patient for a follow-up. The patient is postop day #1 as the patient was found to have an acute on top of chronic perforated duodenal ulcer. She was experiencing hematemesis. The patient was taken to the operating room and the patient underwent an ex-with her laparotomy and lysis of adhesions over 1-1/2 hours, intraoperative EGD was done along with a gastric lavage with 500 mL of ice water saline, a HARRIET drain was placed anterior to the duodenal ulcer, peritoneal lavage was done with a total of 2 L and the wound was closed. Patient is currently still intubated on a mechanical ventilator. She is awake and alert and she was taken off sedation th morning. She was subsequently placed on a spontaneous breathing and currently she is on a pressure support of 5 and a PEEP of 5. She is able to generate tidal volume of 350-400 mL and the respiratory rate of 16. She is very much calm and comfortable while being on a spontaneous mode of respiration. In terms of hemodynamics, the patient is on no pressors. She is on IV fluids currently running at D5 W with 3 A of bicarb at 75 mL an hour. Her blood work from today shows a stable hemoglobin of 7.4, white cell count of 9.5 and a platelet count of 3 on 36. Sodium is at 139, BUN is at 8 with a creatinine of 0.6 and a potassium level of 3.6. Blood gases from this morning showed a pH of 7.34 with a pCO2 of 44 and pO2 of 102. The chest x-ray is showing adequate positioning of the orotracheal tube. There is also infiltrates mainly in the left upper lobe area and left retrocardiac area along with some atelectatic changes in lung bases bilaterally. The blood culture that was obtained earlier showed a coagulase-negative staph and the patient is currently on IV Unasyn and Diflucan. She is on Dilaudid for pain control. Her urine drug screen was positive for a combination of opiates, oxycodone, benzodiazepine and marijuana. No amphetamines were identified in the urine drug screen. Note that the patient originally presented to us on 06/15/2023 after being in the emergency room multiple occasions. During this current admission, she was confused and she had collapsed on the floor. She is known to have previous episodes of respiratory failure, rhabdomyolysis, depression, PTSD and substance abuse. On this morning's evaluation, she is following commands and answering questions appropriately. Her metabolic acidosis has recovered. Her pro calcitonin level was at 0.45. Her CPK has not been checked. Objective - Vital Signs Vital signs: Vital Signs Temp 98.4 F 06/18/23 08:00 Pulse 93 06/18/23 08:00 Resp 18 06/18/23 08:00 BP 103/68 06/18/23 08:00 Pulse Ox 97 06/18/23 08:00 FiO2 50 06/18/23 08:00 Intake & Output 06/17/23 06/18/23 06/18/23 18:59 06:59 18:59 Intake Total 1440 2970.102 478.271 Output Total 500 770 390 Balance 940 2200.102 88.271 Weight 78.8 kg Intake: IV 1440 2475 250 ACETAMINOPHEN IV (For NPO 100 ) 1,000 mg In Empty Bag 1 bag @ 400 mls/hr IVPB Q6HR [facility] Rx#:[id number] Ampicillin-Sulbactam 3 gm 200 200 In Sodium Chloride 0.9% 100 ml @ 200 mls/hr IVPB Q6HR [facility] Rx#:[id number] Dextrose 5% in Water 1, 750 675 150 000 ml @ 75 mls/hr IV . [id number] ONE with Sodium Bicarb (1 Meq/ml) 150 ml Rx#:[id number] Fluconazole in NaCl,Iso- 100 100 Osm 200 mg In Saline 1 100ml.bag @ 100 mls/hr IVPB DAILY [facility] Rx#: [id number] Invasive Line 1 30 Invasive Line 2 60 Potassium Chloride 10 meq 300 In Water For Injection 1 100ml.bag @ 100 mls/hr IVPB Q1HR [facility] Rx#: [id number] Intake, IV Titration 74.102 228.271 Amount Dextrose 5% in Water 1, 75 000 ml @ 75 mls/hr IV . [id number] [facility] with Sodium Bicarb (1 Meq/ml) 150 ml Rx#:[id number] Potassium Chloride 10 meq 100 In Water For Injection 1 100ml.bag @ 100 mls/hr IVPB Q1H [facility] Rx#: [id number] propofoL 1,000 mg In 74.102 53.271 Empty Bag 1 bag @ 15 MCG/ KG/MIN 6.696 mls/hr IV . [id number] [facility] Rx#:[id number] Blood Product 271 Rc Pheresis As-3 Unit 271 [id number] Other 150 Rc Pheresis As-3 Unit 150 [id number] Output: Gastric Drainage 100 Drainage 165 90 HARRIET Drain #1 RUQ ( 60 25 Dudodenal) HARRIET Drain #2 RUQ (Pelvic) 105 65 Urine 500 555 200 Estimated Blood Loss 50 Other: Voiding Method Diaper Indwelling Catheter Indwelling Catheter External Catheter # Voids 1 - Exam No acute distress, oriented 3. This morning, the patient is intubated on mechanical ventilator, awake and alert off propofol. Head exam was generally normal. There was no scleral icterus or corneal arcus. Mucous membranes were moist. HEENT examination is grossly unremarkable. The patient has an NG tube in place. Output is coffee-ground, 100 mL overnight. Neck supple. Full range of motion. No adenopathy thyromegaly or neck vein distention. Cardiovascular examination reveals regular rhythm rate. S1-S2 normal. No S3 or S4. No discernible murmur noted. Lungs reveal clear breath sounds. Breath sounds are equal bilaterally. No adventitious lung sounds including wheezes rhonchi or crackles. Abdomen soft, but tender. Bowel sounds are noted. The patient has 2 drains, HARRIET drain #1 is anterior to the duodenum and HARRIET drain #2 one is in the peritoneal cavity. Output is minimal at this point in time, serosanguineous. The patient also has a provena applied to her anterior abdominal wound. Extremities are intact. No cyanosis clubbing or edema. Skin is without rash or lesion. Neurologic examination is brief but nonfocal. - Labs CBC & Chem 7: 06/18/23 07:15 06/18/23 07:15 Labs: Abnormal Lab Results - Last 24 Hours (Table) 06/15/23 06/17/23 06/17/23 Range/Units 09:35 12:39 12:39 WBC (3.8-10.6) k/uL RBC 2.95 L (3.80-5.40) m/uL Hgb 8.6 L (11.4-16.0) gm/dL Hct 25.8 L (34.0-46.0) % RDW 16.6 H (11.5-15.5) % ABG pH (7.35-7.45) ABG Total CO2 (19-24) mmol/L ABG O2 Saturation (94-97) % Chloride (98-107) mmol/L Calcium (8.4-10.2) mg/dL Magnesium (1.6-2.3) mg/dL Iron 13 L (50-170) UG/DL TIBC 192 L (228-460) UG/DL % Saturation 6.77 L (12.00-45.00) Transferrin 137.0 L (204.0-354.0) mg/dL Crossmatch See Detail 06/17/23 06/18/23 06/18/23 Range/Units 18:10 01:00 01:18 WBC 13.5 H (3.8-10.6) k/uL RBC 2.65 L 2.43 L (3.80-5.40) m/uL Hgb 7.5 L 7.0 L (11.4-16.0) gm/dL Hct 22.8 L 21.6 L (34.0-46.0) % RDW 16.7 H 16.8 H (11.5-15.5) % ABG pH 7.34 L (7.35-7.45) ABG Total CO2 25 H (19-24) mmol/L ABG O2 Saturation 98.0 H (94-97) % Chloride (98-107) mmol/L Calcium (8.4-10.2) mg/dL Magnesium (1.6-2.3) mg/dL Iron (50-170) UG/DL TIBC (228-460) UG/DL % Saturation (12.00-45.00) Transferrin (204.0-354.0) mg/dL Crossmatch 06/18/23 06/18/23 Range/Units 07:15 07:15 WBC (3.8-10.6) k/uL RBC 2.52 L (3.80-5.40) m/uL Hgb 7.4 L (11.4-16.0) gm/dL Hct 22.0 L (34.0-46.0) % RDW 16.3 H (11.5-15.5) % ABG pH (7.35-7.45) ABG Total CO2 (19-24) mmol/L ABG O2 Saturation (94-97) % Chloride 112 H (98-107) mmol/L Calcium 7.2 L (8.4-10.2) mg/dL Magnesium 1.5 L (1.6-2.3) mg/dL Iron (50-170) UG/DL TIBC (228-460) UG/DL % Saturation (12.00-45.00) Transferrin (204.0-354.0) mg/dL Crossmatch Microbiology - Last 24 Hours (Table) 06/16/23 06:04 Blood Culture Gram Stain - Preliminary Blood Blood Culture - Preliminary Coagulase Negative Staph Assessment and Plan Plan: Acute on chronic duodenal ulcer, the patient is status post extensive laparotomy, gastric lavage, peritoneal lavage and lysis of adhesions. The patient is currently postop day #1. NG tube is in place and output has been in the order of 100 mL overnight. Output is still coffee-ground. HARRIET drains are in place and output is minimal at this point. Abdominal wound is clean. The patient is currently on a combination of Unasyn and Diflucan Also extensive laparotomy, postoperative day #1 Post ventilator dependent respiratory failure and the patient was kept intubated on mechanical ventilator overnight. No significant hypoxemia. Chest x-ray showing by the pulmonary infiltrates with upper lobe predominance. No reported aspiration. Currently on a combination of Unasyn and Diflucan. Anemia, status post or units of PRBCs. Hemoglobin today is at 7.4 Recent EGD, June 06, which revealed a duodenal ulcer with previous ulcer repair. Hypokalemia, recovered Non-anion gap metabolic acidosis, improved with a bicarb infusion History of polysubstance abuse and respiratory failure. Previous episode of respiratory failure, prolonged, requiring tracheostomy tube insertion. History of rhabdomyolysis. History of acute kidney injury. History of methicillin-resistant staph aureus sepsis. History of PTSD. History of depression. Plan The patient has completed spontaneous breathing trial. The patient is to be extubated today to a nasal cannula She'll be provided incentive spirometer We'll keep NG tube in place We will insert a PICC line No feeding for now and will consider TPN and dietary consultation be obtained Continue Unasyn and Diflucan for now Monitor output from the HARRIET drain #1 and HARRIET drain #2 Monitor for a drop in hemoglobin which is currently stable Stop the bicarb infusion and switch this patient to a D5 half-normal saline at the rate of 75 mL an hour Compression devices to lower extremities IV Protonix Check CPK Give the patient nothing by mouth for now Dilaudid for pain control We'll continue to follow Critical care evaluation was done in more than 30 minutes Time with Patient: Greater than 30
[2023-06-18] MEDS: LORazepam 2 MG/ML INJ IV PRN ×3 (09:44→21:54)
[2023-06-18] MEDS: DEXTROSE 5%-0.45% NACL 1,000 ML IV SCH ×2 (09:45→22:17)
[2023-06-18] MEDS: MAGNESIUM SULFATE-D5W PMX 1 GM in DEXTROSE/WATER 1 100ML.BAG IVPB SCH ×2 (09:45→10:57)
--- NOTE | 2023-06-18 11:14 | P.PN ---
Subjective Patient is seen for follow-up for acute kidney injury. She was transferred to the ICU secondary to ongoing GI bleed. CT abdomen showed evidence of free air suggesting perforated gastric ulcer. Status post explorative laparotomy with lysis of adhesions and placement of drain in the duodenal ulcer and peritoneal lavage on 06/17/2023. Hemodynamically stable. Maintained on IV fluids Good urine output Serum creatinine improved to 0.69 mg/dL. Potassium is 3.6. Objective - Vital Signs Vital signs: Vital Signs Temp 98.4 F 06/18/23 08:00 Pulse 90 06/18/23 10:00 Resp 16 06/18/23 10:00 BP 126/92 06/18/23 10:00 Pulse Ox 98 06/18/23 10:00 FiO2 50 06/18/23 08:00 Intake & Output 06/17/23 06/18/23 06/18/23 18:59 06:59 18:59 Intake Total 1440 2970.102 653.271 Output Total 500 770 455 Balance 940 2200.102 198.271 Weight 78.8 kg Intake: IV 1440 2475 250 ACETAMINOPHEN IV (For NPO 100 ) 1,000 mg In Empty Bag 1 bag @ 400 mls/hr IVPB Q6HR [facility] Rx#:[id number] Ampicillin-Sulbactam 3 gm 200 200 In Sodium Chloride 0.9% 100 ml @ 200 mls/hr IVPB Q6HR [facility] Rx#:[id number] Dextrose 5% in Water 1, 750 675 150 000 ml @ 75 mls/hr IV . [id number] ONE with Sodium Bicarb (1 Meq/ml) 150 ml Rx#:[id number] Fluconazole in NaCl,Iso- 100 100 Osm 200 mg In Saline 1 100ml.bag @ 100 mls/hr IVPB DAILY [facility] Rx#: [id number] Invasive Line 1 30 Invasive Line 2 60 Potassium Chloride 10 meq 300 In Water For Injection 1 100ml.bag @ 100 mls/hr IVPB Q1HR [facility] Rx#: [id number] Intake, IV Titration 74.102 403.271 Amount Dextrose 5% in Water 1, 75 000 ml @ 75 mls/hr IV . [id number] [facility] with Sodium Bicarb (1 Meq/ml) 150 ml Rx#:[id number] Dextrose 5%-0.45% NaCl 1, 75 000 ml @ 75 mls/hr IV . [id number] [facility] Rx#:[id number] Magnesium Sulfate-D5w Pmx 100 1 gm In Dextrose/Water 1 100ml.bag @ 100 mls/hr IVPB ONCE ONE Rx#: [id number] Potassium Chloride 10 meq 100 In Water For Injection 1 100ml.bag @ 100 mls/hr IVPB Q1H [facility] Rx#: [id number] propofoL 1,000 mg In 74.102 53.271 Empty Bag 1 bag @ 15 MCG/ KG/MIN 6.696 mls/hr IV . [id number] [facility] Rx#:[id number] Blood Product 271 Rc Pheresis As-3 Unit 271 [id number] Other 150 Rc Pheresis As-3 Unit 150 [id number] Output: Gastric Drainage 100 Drainage 165 120 HARRIET Drain #1 RUQ ( 60 45 Dudodenal) HARRIET Drain #2 RUQ (Pelvic) 105 75 Urine 500 555 235 Estimated Blood Loss 50 Other: Voiding Method Diaper Indwelling Catheter Indwelling Catheter External Catheter # Voids 1 - Exam Patient is awake, comfortable, no acute distress NG tube in place Examination of the heart S1 and S2 Examination of the lungs bilateral breath sounds are heard Abdomen is soft nontender Examination lower extremity shows no evidence of edema [employer] exam shows patient is moving all 4 extremities. - Labs CBC & Chem 7: 06/18/23 07:15 06/18/23 07:15 Labs: Abnormal Lab Results - Last 24 Hours (Table) 06/15/23 06/17/23 06/17/23 Range/Units 09:35 12:39 12:39 WBC (3.8-10.6) k/uL RBC 2.95 L (3.80-5.40) m/uL Hgb 8.6 L (11.4-16.0) gm/dL Hct 25.8 L (34.0-46.0) % RDW 16.6 H (11.5-15.5) % ABG pH (7.35-7.45) ABG Total CO2 (19-24) mmol/L ABG O2 Saturation (94-97) % Chloride (98-107) mmol/L Calcium (8.4-10.2) mg/dL Magnesium (1.6-2.3) mg/dL Iron 13 L (50-170) UG/DL TIBC 192 L (228-460) UG/DL % Saturation 6.77 L (12.00-45.00) Transferrin 137.0 L (204.0-354.0) mg/dL Crossmatch See Detail 06/17/23 06/18/23 06/18/23 Range/Units 18:10 01:00 01:18 WBC 13.5 H (3.8-10.6) k/uL RBC 2.65 L 2.43 L (3.80-5.40) m/uL Hgb 7.5 L 7.0 L (11.4-16.0) gm/dL Hct 22.8 L 21.6 L (34.0-46.0) % RDW 16.7 H 16.8 H (11.5-15.5) % ABG pH 7.34 L (7.35-7.45) ABG Total CO2 25 H (19-24) mmol/L ABG O2 Saturation 98.0 H (94-97) % Chloride (98-107) mmol/L Calcium (8.4-10.2) mg/dL Magnesium (1.6-2.3) mg/dL Iron (50-170) UG/DL TIBC (228-460) UG/DL % Saturation (12.00-45.00) Transferrin (204.0-354.0) mg/dL Crossmatch 06/18/23 06/18/23 Range/Units 07:15 07:15 WBC (3.8-10.6) k/uL RBC 2.52 L (3.80-5.40) m/uL Hgb 7.4 L (11.4-16.0) gm/dL Hct 22.0 L (34.0-46.0) % RDW 16.3 H (11.5-15.5) % ABG pH (7.35-7.45) ABG Total CO2 (19-24) mmol/L ABG O2 Saturation (94-97) % Chloride 112 H (98-107) mmol/L Calcium 7.2 L (8.4-10.2) mg/dL Magnesium 1.5 L (1.6-2.3) mg/dL Iron (50-170) UG/DL TIBC (228-460) UG/DL % Saturation (12.00-45.00) Transferrin (204.0-354.0) mg/dL Crossmatch Microbiology - Last 24 Hours (Table) 06/16/23 06:04 Blood Culture Gram Stain - Preliminary Blood Blood Culture - Preliminary Coagulase Negative Staph Assessment and Plan Assessment: 1. Acute kidney injury, ATN secondary to hypotension and severe anemia as well as volume depletion. Currently improved. UA is benign. 2. History of polysubstance abuse with current drug screen positive for opiates and oxycodone benzos and marijuana 3. Anemia with history of black stools. Status post packed RBCs 4. Hypokalemia associated with decreased oral intake and bicarb drip 5. GI bleed status post explorative laparotomy, lysis of adhesions and peritoneal lavage and placement of drain around the duodenal ulcer on 06/17/2023 6. Metabolic acidosis secondary to acute kidney injury Plan: Agree with discontinuation of bicarb drip. Continue with IV fluids Add IV iron and continue to monitor for need for packed RBCs transfusion.
[2023-06-18 12:01] LABS: Glucose,Whole Blood 143 mg/dL (70-110)
[2023-06-18] MEDS: SODIUM FERRIC GLUCONAT-SUCROSE 125 MG in SODIUM CHLORIDE 0.9% 100 ML IVPB SCH (12:46)
[2023-06-18 14:25] LABS: Anisocytosis Slight; Basophils % (A) 0 %; Eosinophils # (A) 0.2 k/uL (0-0.7); Eosinophils % (A) 2 %; HCT 22.9 % (34.0-46.0); HGB 7.8 gm/dL (11.4-16.0); Hypochromasia Slight; Lymphocytes # (A) 2.4 k/uL (1.0-4.8); Lymphocytes % (A) 21 %; MCH 29.8 pg (25.0-35.0); MCHC 33.9 g/dL (31.0-37.0); Mean Platelet Volume 8.6; Monocytes # (A) 0.5 k/uL (0-1.0); Monocytes % (A) 5 %; Neutrophils # (A) 8.1 k/uL (1.3-7.7); Neutrophils % (A) 71 %; Platelet Count 348 k/uL (150-450); Poikilocytosis Slight; WBC 11.4 k/uL (3.8-10.6)
--- NOTE | 2023-06-18 16:11 | P.PN ---
Subjective Progress Note Date: 06/18/23 Principal diagnosis: Reason for follow-up with perforated peptic ulcer disease and leukocytosis Patient is a 47-year-old female with a past medical history significant for polysubstance abuse history of drug overdose pneumonia patient was brought into the ER by her mother for evaluation of intermittent confusion patient noticed to have a elevated white count that has prompted this infectious disease consultation further workup was done and the patient did have a CT of abdominal pelvis completed 06/16/2023 that was reported with possible perforation of the peptic ulcer disease, Patient is s/p expiratory laparotomy with lysis of adhesion for perforated duodenal ulcer completed by general surgery on 06/17/2023. On today's evaluation that is 06/18/2023 patient continues to be afebrile patient is breathing comfortably on 2 L nasal cannula oxygen patient denies h aving any chest pain abdominal pain controlled with the pain medication some nausea but no vomiting no bowel movement. The patient did have white count of 11.4, blood culture with coagulase-negative staph, no OR cultures Objective - Vital Signs Vital signs: Vital Signs Temp 98.0 F 06/18/23 12:00 Pulse 87 06/18/23 14:00 Resp 21 06/18/23 14:00 BP 133/90 06/18/23 14:00 Pulse Ox 98 06/18/23 14:00 FiO2 50 06/18/23 08:00 Intake & Output 06/17/23 06/18/23 06/18/23 18:59 06:59 18:59 Intake Total 1440 2970.102 1453.271 Output Total 500 770 760 Balance 940 2200.102 693.271 Weight 78.8 kg Intake: IV 1440 2475 350 ACETAMINOPHEN IV (For NPO 100 100 ) 1,000 mg In Empty Bag 1 bag @ 400 mls/hr IVPB Q6HR [facility] Rx#:[id number] Ampicillin-Sulbactam 3 gm 200 200 In Sodium Chloride 0.9% 100 ml @ 200 mls/hr IVPB Q6HR [facility] Rx#:[id number] Dextrose 5% in Water 1, 750 675 150 000 ml @ 75 mls/hr IV . [id number] ONE with Sodium Bicarb (1 Meq/ml) 150 ml Rx#:[id number] Fluconazole in NaCl,Iso- 100 100 Osm 200 mg In Saline 1 100ml.bag @ 100 mls/hr IVPB DAILY [facility] Rx#: [id number] Invasive Line 1 30 Invasive Line 2 60 Potassium Chloride 10 meq 300 In Water For Injection 1 100ml.bag @ 100 mls/hr IVPB Q1HR [facility] Rx#: [id number] Intake, IV Titration 74.102 1103.271 Amount Dextrose 5% in Water 1, 75 000 ml @ 75 mls/hr IV . [id number] [facility] with Sodium Bicarb (1 Meq/ml) 150 ml Rx#:[id number] Dextrose 5%-0.45% NaCl 1, 375 000 ml @ 75 mls/hr IV . [id number] [facility] Rx#:[id number] Magnesium Sulfate-D5w Pmx 100 1 gm In Dextrose/Water 1 100ml.bag @ 100 mls/hr IVPB ONCE [facility] Rx#: [id number] Magnesium Sulfate-D5w Pmx 200 1 gm In Dextrose/Water 1 100ml.bag @ 100 mls/hr IVPB Q1H [facility] Rx#: [id number] Potassium Chloride 10 meq 200 In Water For Injection 1 100ml.bag @ 100 mls/hr IVPB Q1H [facility] Rx#: [id number] Sodium Ferric Gluconat- 100 Sucrose 125 mg In Sodium Chloride 0.9% 100 ml @ 100 mls/hr IVPB DAILY [facility] Rx#:[id number] propofoL 1,000 mg In 74.102 53.271 Empty Bag 1 bag @ 15 MCG/ KG/MIN 6.696 mls/hr IV . [id number] [facility] Rx#:[id number] Blood Product 271 Rc Pheresis As-3 Unit 271 [id number] Other 150 Rc Pheresis As-3 Unit 150 [id number] Output: Gastric Drainage 100 Drainage 165 170 HARRIET Drain #1 RUQ ( 60 55 Dudodenal) HARRIET Drain #2 RUQ (Pelvic) 105 115 Urine 500 555 490 Estimated Blood Loss 50 Other: Voiding Method Diaper Indwelling Catheter Indwelling Catheter External Catheter # Voids 1 # Bowel Movements 1 - Exam GENERAL DESCRIPTION: Middle-age lying in bed in no distress RESPIRATORY SYSTEM: Unlabored breathing , decreased breath sounds at bases HEART: S1 S2 regular rate and rhythm , ABDOMEN: Soft , mild epigastric tenderness EXTREMITIES: No edema feet - Labs CBC & Chem 7: 06/18/23 14:05 06/18/23 14:05 Labs: Abnormal Lab Results - Last 24 Hours (Table) 06/15/23 06/17/23 06/17/23 Range/Units 09:35 12:39 18:10 WBC (3.8-10.6) k/uL RBC 2.65 L (3.80-5.40) m/uL Hgb 7.5 L (11.4-16.0) gm/dL Hct 22.8 L (34.0-46.0) % RDW 16.7 H (11.5-15.5) % Neutrophils # (1.3-7.7) k/uL ABG pH (7.35-7.45) ABG Total CO2 (19-24) mmol/L ABG O2 Saturation (94-97) % Chloride (98-107) mmol/L POC Glucose (mg/dL) (70-110) mg/dL Calcium (8.4-10.2) mg/dL Magnesium (1.6-2.3) mg/dL Iron 13 L (50-170) UG/DL TIBC 192 L (228-460) UG/DL % Saturation 6.77 L (12.00-45.00) Transferrin 137.0 L (204.0-354.0) mg/dL Creatine Kinase (30-135) U/L Crossmatch See Detail 06/18/23 06/18/23 06/18/23 Range/Units 01:00 01:18 07:15 WBC 13.5 H (3.8-10.6) k/uL RBC 2.43 L (3.80-5.40) m/uL Hgb 7.0 L (11.4-16.0) gm/dL Hct 21.6 L (34.0-46.0) % RDW 16.8 H (11.5-15.5) % Neutrophils # (1.3-7.7) k/uL ABG pH 7.34 L (7.35-7.45) ABG Total CO2 25 H (19-24) mmol/L ABG O2 Saturation 98.0 H (94-97) % Chloride 112 H (98-107) mmol/L POC Glucose (mg/dL) (70-110) mg/dL Calcium 7.2 L (8.4-10.2) mg/dL Magnesium 1.5 L (1.6-2.3) mg/dL Iron (50-170) UG/DL TIBC (228-460) UG/DL % Saturation (12.00-45.00) Transferrin (204.0-354.0) mg/dL Creatine Kinase (30-135) U/L Crossmatch 06/18/23 06/18/23 06/18/23 Range/Units 07:15 07:15 11:59 WBC (3.8-10.6) k/uL RBC 2.52 L (3.80-5.40) m/uL Hgb 7.4 L (11.4-16.0) gm/dL Hct 22.0 L (34.0-46.0) % RDW 16.3 H (11.5-15.5) % Neutrophils # (1.3-7.7) k/uL ABG pH (7.35-7.45) ABG Total CO2 (19-24) mmol/L ABG O2 Saturation (94-97) % Chloride (98-107) mmol/L POC Glucose (mg/dL) 143 H (70-110) mg/dL Calcium (8.4-10.2) mg/dL Magnesium (1.6-2.3) mg/dL Iron (50-170) UG/DL TIBC (228-460) UG/DL % Saturation (12.00-45.00) Transferrin (204.0-354.0) mg/dL Creatine Kinase 150 H (30-135) U/L Crossmatch 06/18/23 Range/Units 14:05 WBC 11.4 H (3.8-10.6) k/uL RBC 2.60 L (3.80-5.40) m/uL Hgb 7.8 L (11.4-16.0) gm/dL Hct 22.9 L (34.0-46.0) % RDW 17.0 H (11.5-15.5) % Neutrophils # 8.1 H (1.3-7.7) k/uL ABG pH (7.35-7.45) ABG Total CO2 (19-24) mmol/L ABG O2 Saturation (94-97) % Chloride (98-107) mmol/L POC Glucose (mg/dL) (70-110) mg/dL Calcium (8.4-10.2) mg/dL Magnesium (1.6-2.3) mg/dL Iron (50-170) UG/DL TIBC (228-460) UG/DL % Saturation (12.00-45.00) Transferrin (204.0-354.0) mg/dL Creatine Kinase (30-135) U/L Crossmatch Microbiology - Last 24 Hours (Table) 06/16/23 06:04 Blood Culture Gram Stain - Preliminary Blood Blood Culture - Preliminary Coagulase Negative Staph Assessment and Plan (1) Leukocytosis Current Visit: Yes Status: Acute Code(s): D72.829 - ELEVATED WHITE BLOOD CELL COUNT, UNSPECIFIED SNOMED Code(s): 819243208 (2) Perforated peptic ulcer Current Visit: Yes Status: Acute Code(s): K27.5 - CHRONIC OR UNSP PEPTIC ULCER, SITE UNSP, WITH PERFORATION SNOMED Code(s): 72620937 (3) Peritonitis Current Visit: Yes Status: Acute Code(s): K65.9 - PERITONITIS, UNSPECIFIED SNOMED Code(s): 31201451 (4) Allergy to sulfa drugs Current Visit: Yes Status: Acute Code(s): Z88.2 - ALLERGY STATUS TO SULFONAMIDES SNOMED Code(s): 11585972 Plan: 1patient presented hospital with intermittent confusion and mental status changes patient was noticed to have elevated white count also anemia initial workup was negative with a CT abdominal pelvis showing evidence of perforated peptic ulcer disease 2General surgery has evaluated the patient and the patient is status post lysis of adhesions and peritoneal lavage completed by general surgery on 06/17/2023, no all cultures patient to continue with Unasyn and Diflucan and will monitor clinical course closely 3positive blood culture with coagulase-negative staph likely contamination will repeat a blood culture Dictation was produced using [employer] dictation software. please excuse any grammatical, word or spelling errors. Time with Patient: Less than 30
--- NOTE | 2023-06-18 18:28 | P.PN ---
Subjective ymes are normal urine has been negative urine drug screen was positive for benzo and cocaine patient noticed to have a wound to the dorsum aspect of the right foot for the patient did have a chest x-ray soft tissue swelling edema of the foot without evidence for fracture or bony erosion chest x-ray cardiomegaly mild pulm vascular congestion infectious disease was consulted for right foot wound most information has been obtained from review the chart as the patient remains to be lethargic and did not provide any history as far as right foot wound and the kind of treatment he is receiving for it ymes are normal urine has been negative urine drug screen was positive for benzo and cocaine patient noticed to have a wound to the dorsum aspect of the right foot for the patient did have a chest x-ray soft tissue swelling edema of the foot without evidence for fracture or bony erosion chest x-ray cardiomegaly mild pulm vascular congestion infectious disease was consulted for right foot wound most information has been obtained from review the chart as the patient remains to be lethargic and did not provide any history as far as right foot wound and the kind of treatment he is receiving for it -- CT of the abdomen and pelvis completed reveals upper abdomen inflammation likely secondary to perforated gastric ulcer; circumferential wall thickening of the gallbladder with hyperemia likely secondary to 1 -- Stat surgical consult is done -- Hemoglobin is down to 5.6; 2 units of packed RBCs are ordered -- Patient is being transferred to ICU 06/17/2023 Patient is seen and evaluated in room at bedside; patient had CT of the abdomen and pelvis completed yesterday which revealed perforated gastric ulcer; general surgery was consulted and patient was transferred to ICU Vital signs are reviewed and stable with temperature of 97.9, pulse 67, respiration 13 and blood pressure 147/94 White count is 8.7, hemoglobin 8.2, hematocrit 24.8, and platelet count 326,000. Sodium 141, potassium 3.6, chlorides 115, CO2 16, BUN 14, and creatinine 0.78. Albumin is 2.1. -- Patient has received a total of 4 units of packed RBCs; hemoglobin is stable at 8.2 General surgery and with the plans to take the patient to OR this afternoon; patient has been cleared by cardiology 06/18/2023 Patient was intubated in the morning, M she was extubated Currently on BiPAP. Mildly tachypneic. She remains on broad-spectrum antibiotic of Unasyn and fluconazole for suspected peritonitis from perforated peptic ulcer. Status post exploratory laparotomy and lysis of adhesions with peritoneal lavage Blood culture is contamination present. Currently on gentle hydration of D5 half normal saline at 75 mL/h Objective - Vital Signs Vital signs: Vital Signs Temp 97.5 F L 06/18/23 16:00 Pulse 98 06/18/23 18:00 Resp 12 06/18/23 18:00 BP 129/104 06/18/23 18:00 Pulse Ox 98 06/18/23 18:00 FiO2 50 06/18/23 08:00 Intake & Output 06/17/23 06/18/23 06/18/23 18:59 06:59 18:59 Intake Total 1440 2970.102 1703.271 Output Total 500 770 820 Balance 940 2200.102 883.271 Weight 78.8 kg Intake: IV 1440 2475 350 ACETAMINOPHEN IV (For NPO 100 100 ) 1,000 mg In Empty Bag 1 bag @ 400 mls/hr IVPB Q6HR [facility] Rx#:[id number] Ampicillin-Sulbactam 3 gm 200 200 In Sodium Chloride 0.9% 100 ml @ 200 mls/hr IVPB Q6HR [facility] Rx#:[id number] Dextrose 5% in Water 1, 750 675 150 000 ml @ 75 mls/hr IV . [id number] ONE with Sodium Bicarb (1 Meq/ml) 150 ml Rx#:[id number] Fluconazole in NaCl,Iso- 100 100 Osm 200 mg In Saline 1 100ml.bag @ 100 mls/hr IVPB DAILY [facility] Rx#: [id number] Invasive Line 1 30 Invasive Line 2 60 Potassium Chloride 10 meq 300 In Water For Injection 1 100ml.bag @ 100 mls/hr IVPB Q1HR [facility] Rx#: [id number] Intake, IV Titration 74.102 1353.271 Amount Dextrose 5% in Water 1, 75 000 ml @ 75 mls/hr IV . [id number] [facility] with Sodium Bicarb (1 Meq/ml) 150 ml Rx#:[id number] Dextrose 5%-0.45% NaCl 1, 525 000 ml @ 75 mls/hr IV . [id number] [facility] Rx#:[id number] Magnesium Sulfate-D5w Pmx 100 1 gm In Dextrose/Water 1 100ml.bag @ 100 mls/hr IVPB ONCE [facility] Rx#: [id number] Magnesium Sulfate-D5w Pmx 200 1 gm In Dextrose/Water 1 100ml.bag @ 100 mls/hr IVPB Q1H [facility] Rx#: [id number] Potassium Chloride 10 meq 200 In Water For Injection 1 100ml.bag @ 100 mls/hr IVPB Q1H [facility] Rx#: [id number] Potassium Chloride 20 meq 100 In Water For Injection 1 100ml.bag @ 50 mls/hr IVPB Q2H [facility] Rx#: [id number] Sodium Ferric Gluconat- 100 Sucrose 125 mg In Sodium Chloride 0.9% 100 ml @ 100 mls/hr IVPB DAILY [facility] Rx#:[id number] propofoL 1,000 mg In 74.102 53.271 Empty Bag 1 bag @ 15 MCG/ KG/MIN 6.696 mls/hr IV . [id number] [facility] Rx#:[id number] Blood Product 271 Rc Pheresis As-3 Unit 271 [id number] Other 150 Rc Pheresis As-3 Unit 150 [id number] Output: Gastric Drainage 100 Drainage 165 170 HARRIET Drain #1 RUQ ( 60 55 Dudodenal) HARRIET Drain #2 RUQ (Pelvic) 105 115 Urine 500 555 550 Estimated Blood Loss 50 Other: Voiding Method Diaper Indwelling Catheter Indwelling Catheter External Catheter # Voids 1 # Bowel Movements 1 - Exam -GENERAL: The patient is intubated HEENT: Pupils are round and equally reacting to light. EOMI. No scleral icterus. No conjunctival pallor. Normocephalic, atraumatic. No pharyngeal erythema. No thyromegaly. CARDIOVASCULAR: S1 and S2 present. No murmurs, rubs, or gallops. PULMONARY: Chest is clear to auscultation, no wheezing , no crackles. -ABDOMEN: Soft, nontender, nondistended, normoactive bowel sounds. No palpable organomegaly. Surgical wound with a dressing in place MUSCULOSKELETAL: No joint swelling or deformity. EXTREMITIES: No cyanosis, clubbing, or pedal edema. NEUROLOGICAL: Gross neurological examination did not reveal any focal deficits. SKIN: No rashes. no petechiae. - Labs CBC & Chem 7: 06/18/23 14:05 06/18/23 14:05 Labs: Abnormal Lab Results - Last 24 Hours (Table) 1206/17/23 06/17/23 Range/Units 09:35 12:39 18:10 WBC (3.8-10.6) k/uL RBC 2.65 L (3.80-5.40) m/uL Hgb 7.5 L (11.4-16.0) gm/dL Hct 22.8 L (34.0-46.0) % RDW 16.7 H (11.5-15.5) % Neutrophils # (1.3-7.7) k/uL ABG pH (7.35-7.45) ABG Total CO2 (19-24) mmol/L ABG O2 Saturation (94-97) % Chloride (98-107) mmol/L POC Glucose (mg/dL) (70-110) mg/dL Calcium (8.4-10.2) mg/dL Magnesium (1.6-2.3) mg/dL Iron 13 L (50-170) UG/DL TIBC 192 L (228-460) UG/DL % Saturation 6.77 L (12.00-45.00) Transferrin 137.0 L (204.0-354.0) mg/dL Creatine Kinase (30-135) U/L Crossmatch See Detail 06/18/23 06/18/23 06/18/23 Range/Units 01:00 01:18 07:15 WBC 13.5 H (3.8-10.6) k/uL RBC 2.43 L (3.80-5.40) m/uL Hgb 7.0 L (11.4-16.0) gm/dL Hct 21.6 L (34.0-46.0) % RDW 16.8 H (11.5-15.5) % Neutrophils # (1.3-7.7) k/uL ABG pH 7.34 L (7.35-7.45) ABG Total CO2 25 H (19-24) mmol/L ABG O2 Saturation 98.0 H (94-97) % Chloride 112 H (98-107) mmol/L POC Glucose (mg/dL) (70-110) mg/dL Calcium 7.2 L (8.4-10.2) mg/dL Magnesium 1.5 L (1.6-2.3) mg/dL Iron (50-170) UG/DL TIBC (228-460) UG/DL % Saturation (12.00-45.00) Transferrin (204.0-354.0) mg/dL Creatine Kinase (30-135) U/L Crossmatch 06/18/23 06/18/23 06/18/23 Range/Units 07:15 07:15 11:59 WBC (3.8-10.6) k/uL RBC 2.52 L (3.80-5.40) m/uL Hgb 7.4 L (11.4-16.0) gm/dL Hct 22.0 L (34.0-46.0) % RDW 16.3 H (11.5-15.5) % Neutrophils # (1.3-7.7) k/uL ABG pH (7.35-7.45) ABG Total CO2 (19-24) mmol/L ABG O2 Saturation (94-97) % Chloride (98-107) mmol/L POC Glucose (mg/dL) 143 H (70-110) mg/dL Calcium (8.4-10.2) mg/dL Magnesium (1.6-2.3) mg/dL Iron (50-170) UG/DL TIBC (228-460) UG/DL % Saturation (12.00-45.00) Transferrin (204.0-354.0) mg/dL Creatine Kinase 150 H (30-135) U/L Crossmatch 06/18/23 Range/Units 14:05 WBC 11.4 H (3.8-10.6) k/uL RBC 2.60 L (3.80-5.40) m/uL Hgb 7.8 L (11.4-16.0) gm/dL Hct 22.9 L (34.0-46.0) % RDW 17.0 H (11.5-15.5) % Neutrophils # 8.1 H (1.3-7.7) k/uL ABG pH (7.35-7.45) ABG Total CO2 (19-24) mmol/L ABG O2 Saturation (94-97) % Chloride (98-107) mmol/L POC Glucose (mg/dL) (70-110) mg/dL Calcium (8.4-10.2) mg/dL Magnesium (1.6-2.3) mg/dL Iron (50-170) UG/DL TIBC (228-460) UG/DL % Saturation (12.00-45.00) Transferrin (204.0-354.0) mg/dL Creatine Kinase (30-135) U/L Crossmatch Microbiology - Last 24 Hours (Table) 06/16/23 06:04 Blood Culture Gram Stain - Preliminary Blood Blood Culture - Preliminary Coagulase Negative Staph Assessment and Plan Assessment: #. Acute perforated due to ulcerative status post exploratory laparotomy with lysis of adhesions and peritoneal lavage = With postop care, continue nothing by mouth - Plan to start TPN - General surgery on the case. Continue gentle hydration and antibiotic #. Altered mental status; likely multifactorial related to polysubstance abuse versus [place] I/dehydration - Improving #. Acute renal injury/dehydration - BUN/creatinine elevated at 47/2.29 -- We will start patient on IV fluid hydration form of normal saline at a rate of 100 mL an hour; monitor strict KATERINE's, daily weights, renal function and electrolytes - Avoid nephrotoxins and hypotension #. Severe anemia; patient received 2 units packed RBCs in ED; we will monitor H&H every 6 hours with plans to transfuse if hemoglobin is less than 7.0; stool occult blood on stool specimens; Protonix 40 mg IV every 12 hours -- Consult general surgery #. Electrolyte imbalance; supplemented in ED; monitor electrolytes closely and supplement as needed #. Polysubstance abuse; urine drug screen is positive for opiates, benzodiazepines and marijuana #. Hypertension; metoprolol 12.5 mg twice a day #. Depression/anxiety; patient takes Wellbutrin, Zoloft and BuSpar DVT prophylaxis; SCDs only CODE STATUS; full code
[2023-06-19] MEDS: HYDROmorphone 1 MG/ML 1 ML SYRINGE IVP PRN ×6 (00:30→20:34)
[2023-06-19] MEDS: POTASSIUM CHLORIDE 10 MEQ in WATER FOR INJECTION 1 100ML.BAG IVPB SCH ×5 (01:19→23:39)
[2023-06-19 04:34] LABS: Anisocytosis Slight; Basophils % (A) 0 %; Eosinophils # (A) 0.3 k/uL (0-0.7); Eosinophils % (A) 2 %; HCT 22.4 % (34.0-46.0); HGB 7.4 gm/dL (11.4-16.0); Hypochromasia Slight; Lymphocytes # (A) 2.9 k/uL (1.0-4.8); Lymphocytes % (A) 24 %; MCH 28.7 pg (25.0-35.0); MCHC 32.8 g/dL (31.0-37.0); MCV 87.3 fL (80.0-100.0); Mean Platelet Volume 8.9; Monocytes # (A) 0.6 k/uL (0-1.0); Monocytes % (A) 5 %; Neutrophils # (A) 8.2 k/uL (1.3-7.7); Neutrophils % (A) 68 %; Platelet Count 347 k/uL (150-450); Poikilocytosis Slight; RBC 2.57 m/uL (3.80-5.40); RDW 17.1 % (11.5-15.5); WBC 12.1 k/uL (3.8-10.6)
[2023-06-19] MEDS: LORazepam 2 MG/ML INJ IV PRN ×3 (04:37→18:21)
[2023-06-19 04:41] LABS: African American GFR (CKD) >90 (>60 ml/min/1.73 sqM); Anion Gap 8 mmol/L; Blood Urea Nitrogen 13 mg/dL (7-17); Calcium 7.6 mg/dL (8.4-10.2); Carbon Dioxide 19 mmol/L (22-30); Chloride 114 mmol/L (98-107); Glucose 84 mg/dL (74-99); Magnesium 1.9 mg/dL (1.6-2.3); Non-African American GFR(CKD) 85 (>60 ml/min/1.73 sqM); Potassium 4.1 mmol/L (3.5-5.1); Sodium 141 mmol/L (137-145)
[2023-06-19] MEDS ORDERED: HALOPERIDOL LACTATE 5 MG/ML 1 ML VIAL IVP ONE (05:21)
[2023-06-19 06:02] LABS: Glucose,Whole Blood 106 mg/dL (70-110)
[2023-06-19] MEDS: METOPROLOL TARTRATE 5 MG/5 ML VIAL IVP SCH ×4 (06:54→23:40)
[2023-06-19] MEDS: ACETAMINOPHEN IV (For NPO) 1,000 MG in EMPTY BAG 1 BAG IVPB SCH ×4 (06:54→23:39)
[2023-06-19] MEDS: AMPICILLIN-SULBACTAM 3 GM in SODIUM CHLORIDE 0.9% 100 ML IVPB SCH ×4 (06:54→23:40)
[2023-06-19] MEDS: PANTOPRAZOLE 40 MG/10 ML VIAL IV SCH ×2 (08:11→20:34)
[2023-06-19] MEDS: FLUCONAZOLE IN NACL,ISO-OSM 200 MG in SALINE 1 100ML.BAG IVPB SCH (08:11)
[2023-06-19] MEDS: SODIUM FERRIC GLUCONAT-SUCROSE 125 MG in SODIUM CHLORIDE 0.9% 100 ML IVPB SCH (09:36)
--- NOTE | 2023-06-19 09:36 | P.PN ---
Subjective Progress Note Date: 06/19/23 On today's evaluation of 06/18/2023, I'm seeing the patient for a follow-up. The patient is postop day #1 as the patient was found to have an acute on top of chronic perforated duodenal ulcer. She was experiencing hematemesis. The patient was taken to the operating room and the patient underwent an ex-with her laparotomy and lysis of adhesions over 1-1/2 hours, intraoperative EGD was done along with a gastric lavage with 500 mL of ice water saline, a HARRIET drain was placed anterior to the duodenal ulcer, peritoneal lavage was done with a total of 2 L and the wound was closed. Patient is currently still intubated on a mechanical ventilator. She is awake and alert and she was taken off sedation th morning. She was subsequently placed on a spontaneous breathing and currently she is on a pressure support of 5 and a PEEP of 5. She is able to generate tidal volume of 350-400 mL and the respiratory rate of 16. She is very much calm and comfortable while being on a spontaneous mode of respiration. In terms of hemodynamics, the patient is on no pressors. She is on IV fluids currently running at D5 W with 3 A of bicarb at 75 mL an hour. Her blood work from today shows a stable hemoglobin of 7.4, white cell count of 9.5 and a platelet count of 3 on 36. Sodium is at 139, BUN is at 8 with a creatinine of 0.6 and a potassium level of 3.6. Blood gases from this morning showed a pH of 7.34 with a pCO2 of 44 and pO2 of 102. The chest x-ray is showing adequate positioning of the orotracheal tube. There is also infiltrates mainly in the left upper lobe area and left retrocardiac area along with some atelectatic changes in lung bases bilaterally. The blood culture that was obtained earlier showed a coagulase-negative staph and the patient is currently on IV Unasyn and Diflucan. She is on Dilaudid for pain control. Her urine drug screen was positive for a combination of opiates, oxycodone, benzodiazepine and marijuana. No amphetamines were identified in the urine drug screen. Note that the patient originally presented to us on 06/15/2023 after being in the emergency room multiple occasions. During this current admission, she was confused and she had collapsed on the floor. She is known to have previous episodes of respiratory failure, rhabdomyolysis, depression, PTSD and substance abuse. On this morning's evaluation, she is following commands and answering questions appropriately. Her metabolic acidosis has recovered. Her pro calcitonin level was at 0.45. Her CPK has not been checked. On today's evaluation of 06/19/2023, the patient is postop day #2. The patient remains nothing by mouth. NG tube was removed. No signs of any bleeding and hemoglobin stable at 7.4. She remains nothing by mouth upon the request made by surgery and the patient will have a PICC line inserted for TPN. The plan is to keep nothing by mouth for the next 7 days and this is based on surgical recommendations. The patient has HARRIET drains in place, HARRIET drain #1 is anterior to the duodenum and is draining approximately 20 mL an HARRIET #2 drain is in the abdomen and this has drained serosanguineous material in the order of 100 mL since yesterday. Abdomen is soft. Surgical one-sided dry clean and intact. No nausea. No emesis. White cycles of 12.1 and the patient remains on a combination of Unasyn and Diflucan. Renal function stable. BUN is at 30 with a creatinine of 0.8 and a sodium bicarb is at 19 and sodium level is at 141. She is afebrile. She is having episodes of agitation and delirium. She is known to have chronic anxiety maintain on a combination of Zoloft and BuSpar on outpatient basis. She also takes Wellbutrin. Note that she is unable to take any of her oral medication. She was given a dose of Haldol yesterday which helped her with her delirium. She seems to be more appropriate this morning. She was given Haldol 5 mg IV push 1. No nausea. No emesis. She remains on IV Protonix. She is currently on oxygen at 2 L nasal cannula. Using incentive spirometer. CPK was checked and the levels were not elevated. IV fluids are in the form of D5 half-normal saline at the rate of 55 mL an hour. Objective - Vital Signs Vital signs: Vital Signs Temp 94.6 F L 06/19/23 09:00 Pulse 100 06/19/23 09:00 Resp 17 06/19/23 09:00 BP 132/99 06/19/23 09:00 Pulse Ox 98 06/19/23 09:00 FiO2 50 06/18/23 08:00 Intake & Output 06/18/23 06/19/23 06/19/23 18:59 06:59 18:59 Intake Total 2328.271 1125 75 Output Total 1250 875 125 Balance 1078.271 250 -50 Weight 81.4 kg Intake: IV 450 1125 75 ACETAMINOPHEN IV (For NPO 200 100 ) 1,000 mg In Empty Bag 1 bag @ 400 mls/hr IVPB Q6HR [facility] Rx#:[id number] Ampicillin-Sulbactam 3 gm 100 In Sodium Chloride 0.9% 100 ml @ 200 mls/hr IVPB Q6HR [facility] Rx#:[id number] Dextrose 5% in Water 1, 150 000 ml @ 75 mls/hr IV . [id number] ONE with Sodium Bicarb (1 Meq/ml) 150 ml Rx#:[id number] Dextrose 5% in Water 1, 825 75 000 ml @ 75 mls/hr IV . [id number] [facility] with Sodium Bicarb (1 Meq/ml) 150 ml Rx#:[id number] Fluconazole in NaCl,Iso- 100 Osm 200 mg In Saline 1 100ml.bag @ 100 mls/hr IVPB DAILY [facility] Rx#: [id number] Potassium Chloride 10 meq 100 In Water For Injection 1 100ml.bag @ 100 mls/hr IVPB Q1HR [facility] Rx#: [id number] Intake, IV Titration 1878.271 Amount Ampicillin-Sulbactam 3 gm 100 In Sodium Chloride 0.9% 100 ml @ 200 mls/hr IVPB Q6HR [facility] Rx#:[id number] Dextrose 5% in Water 1, 75 000 ml @ 75 mls/hr IV . [id number] [facility] with Sodium Bicarb (1 Meq/ml) 150 ml Rx#:[id number] Dextrose 5%-0.45% NaCl 1, 750 000 ml @ 75 mls/hr IV . [id number] [facility] Rx#:[id number] Magnesium Sulfate-D5w Pmx 100 1 gm In Dextrose/Water 1 100ml.bag @ 100 mls/hr IVPB ONCE [facility] Rx#: [id number] Magnesium Sulfate-D5w Pmx 200 1 gm In Dextrose/Water 1 100ml.bag @ 100 mls/hr IVPB Q1H [facility] Rx#: [id number] Potassium Chloride 10 meq 200 In Water For Injection 1 100ml.bag @ 100 mls/hr IVPB Q1H [facility] Rx#: [id number] Potassium Chloride 10 meq 200 In Water For Injection 1 100ml.bag @ 100 mls/hr IVPB Q1H [facility] Rx#: [id number] Potassium Chloride 20 meq 100 In Water For Injection 1 100ml.bag @ 50 mls/hr IVPB Q2H [facility] Rx#: [id number] Sodium Ferric Gluconat- 100 Sucrose 125 mg In Sodium Chloride 0.9% 100 ml @ 100 mls/hr IVPB DAILY [facility] Rx#:[id number] propofoL 1,000 mg In 53.271 Empty Bag 1 bag @ 15 MCG/ KG/MIN 6.696 mls/hr IV . [id number] [facility] Rx#:[id number] Output: Gastric Drainage 250 Drainage 290 50 HARRIET Drain #1 RUQ ( 85 20 Dudodenal) HARRIET Drain #2 RUQ (Pelvic) 205 30 Urine 710 825 125 Other: Voiding Method Indwelling Catheter Indwelling Catheter # Bowel Movements 1 1 - Exam No acute distress, oriented 3. This morning, the patient is calm and comfortable, slightly sleepy maintain on 2 L of oxygen by nasal cannula. NG tube has been removed. Head exam was generally normal. There was no scleral icterus or corneal arcus. Mucous membranes were moist. HEENT examination is grossly unremarkable. v Neck supple. Full range of motion. No adenopathy thyromegaly or neck vein distention. Cardiovascular examination reveals regular rhythm rate. S1-S2 normal. No S3 or S4. No discernible murmur noted. Lungs reveal clear breath sounds. Breath sounds are equal bilaterally. No adventitious lung sounds including wheezes rhonchi or crackles. Abdomen soft, but tender. Bowel sounds are noted. The patient has 2 drains, HARRIET drain #1 is anterior to the duodenum and HARRIET drain #2 one is in the peritoneal cavity. Output is minimal at this point in time, serosanguineous. The patient also has a provena applied to her anterior abdominal wound. Extremities are intact. No cyanosis clubbing or edema. Skin is without rash or lesion. Neurologic examination is nonfocal and the patient is moving all 4 extremities and she is communicating. Psychiatric history, reports increased anxiety. - Labs CBC & Chem 7: 06/19/23 03:29 06/19/23 07:46 Labs: Abnormal Lab Results - Last 24 Hours (Table) 06/18/23 06/18/23 06/18/23 Range/Units 07:15 11:59 14:05 WBC 11.4 H (3.8-10.6) k/uL RBC 2.60 L (3.80-5.40) m/uL Hgb 7.8 L (11.4-16.0) gm/dL Hct 22.9 L (34.0-46.0) % RDW 17.0 H (11.5-15.5) % Neutrophils # 8.1 H (1.3-7.7) k/uL Chloride (98-107) mmol/L Carbon Dioxide (22-30) mmol/L POC Glucose (mg/dL) 143 H (70-110) mg/dL Calcium (8.4-10.2) mg/dL Creatine Kinase 150 H (30-135) U/L 06/19/23 06/19/23 Range/Units 03:29 03:29 WBC 12.1 H (3.8-10.6) k/uL RBC 2.57 L (3.80-5.40) m/uL Hgb 7.4 L (11.4-16.0) gm/dL Hct 22.4 L (34.0-46.0) % RDW 17.1 H (11.5-15.5) % Neutrophils # 8.2 H (1.3-7.7) k/uL Chloride 114 H (98-107) mmol/L Carbon Dioxide 19 L (22-30) mmol/L POC Glucose (mg/dL) (70-110) mg/dL Calcium 7.6 L (8.4-10.2) mg/dL Creatine Kinase (30-135) U/L Microbiology - Last 24 Hours (Table) 06/16/23 06:04 Blood Culture Gram Stain - Preliminary Blood Blood Culture - Preliminary Coagulase Negative Staph Assessment and Plan Plan: Acute on chronic duodenal ulcer, the patient is status post extensive laparotomy , gastric lavage, peritoneal lavage and lysis of adhesions. The patient is currently postop day #2. NG tube is in place and output has been in the order of 100 mL overnight. Output is still coffee-ground. HARRIET drains are in place and output is minimal at this point. Abdominal wound is clean. The patient is currently on a combination of Unasyn and Diflucan, the patient remains nothing by mouth. Antibiotic coverage is unchanged since yesterday. Also extensive laparotomy, postoperative day #2 Post ventilator dependent respiratory failure and the patient was extubated yesterday to 2 L of oxygen nasal cannula Anemia, status post or units of PRBCs. Hemoglobin today is at 7.4 Recent EGD, June 06, which revealed a duodenal ulcer with previous ulcer repair. Hypokalemia, recovered Non-anion gap metabolic acidosis, serum bicarbs of 19 and the patient is on D5 half-normal saline 30-55 mL an hour History of polysubstance abuse and respiratory failure. Previous episode of respiratory failure, prolonged, requiring tracheostomy tube insertion. History of rhabdomyolysis. History of acute kidney injury. History of methicillin-resistant staph aureus sepsis. History of PTSD. History of depression. Episodes of delirium, given Haldol, more appropriate on today's evaluation Plan The patient extubated to 2 L of oxygen by nasal cannula Encourage the use of incentive spirometer NG tube has been removed We will insert a PICC line today Keep nothing by mouth No feeding for now and will consider TPN and dietary consultation be obtained and this will be initiated once the patient has a PICC line Continue Unasyn and Diflucan for now Monitor output from the HARRIET drain #1 and HARRIET drain #2 Monitor for a drop in hemoglobin which is currently stable Compression devices to lower extremities IV Protonix Haldol 2 mg IV every 4-6 hours for delirium Dilaudid for pain control We'll continue to follow
--- NOTE | 2023-06-19 09:50 | CDI ---
Documentation Clarification Form Date: 06/19/2023 09:31:18 AM From: Edelmira Keita RN CCDS Phone: [phone] Admit Date: 06/15/2023 12:00:00 PM Patient Name: Kristina Leach Visit Number: [id number] Discharge Date: ATTENTION: The Clinical Documentation Specialists (CDI) and [facility] Coding Staff appreciate your assistance in clarifying documentation. Please respond to the clarification below the line at the bottom and electronically sign. The CDI & [facility] Coding staff will review the response and follow-up if needed. Please note: Queries are made part of the Legal Health Record. If you have any questions, please contact the author of this message via ITS. Dr. Vazquez E Sheet Your patient has the documented symptom of Altered Mental Status 06/15, H&P, 06/16 -06/18, Medicine notes. Additional clarification regarding the etiology/cause of this symptom is requested. History/Risk Factors: 47-year-old female presents for evaluation for intermittent confusion, very fatigued and recently diagnosed with a kidney stone. Medical History: Polysubstance abuse, Drug overdose, Metabolic Encephalopathy, Duodenal ulcer and depression. 06/15, H&P> Clinical Indicators: Labs, 06/15: Wbc 21.4, Hgb 6.7, BUN 47, Cr 2.29, Toxicology Detected: Opiates, Oxycodone, Benzodiazepines, THC and Serum alcohol <10. CT Brain, 06/15: No acute intracranial process. Stable right frontal lobe periventricular white matter change suspected atleast 2021. Nephrology consult, 06/16: Acute kidney injury, ATN secondary to hypotension and severe anemia as well as volume depletion. Treatment: 06/15 0.9NS 3.5L bolus, 06/16 06/17 Dextrose / Water w/ Sodium Bicarbonate 150ml 1,150mls @75mls/hr; Please clarify the etiology of the symptom of Altered Mental Status: [ x ] Metabolic Encephalopathy multifactorial related to polysubstance abuse, LUIS MIGUEL and dehydration. [ ] Other condition (please specify) [ ] Unable to determine (Template Last Revised: July 2020) MTDD
[2023-06-19] MEDS: HALOPERIDOL LACTATE 5 MG/ML 1 ML VIAL IVP PRN ×2 (09:59→17:55)
--- NOTE | 2023-06-19 10:26 | P.PN ---
Subjective Patient is seen for follow-up for acute kidney injury. She was transferred to the ICU secondary to ongoing GI bleed. CT abdomen showed evidence of free air suggesting perforated gastric ulcer. Status post explorative laparotomy with lysis of adhesions and placement of drain in the duodenal ulcer and peritoneal lavage on 06/17/2023. Hemodynamically stable. Maintained on IV fluids Good urine output Serum creatinine improved to 0.8 mg/dL. Potassium is 3.9. Objective - Vital Signs Vital signs: Vital Signs Temp 94.6 F L 06/19/23 09:00 Pulse 100 06/19/23 09:00 Resp 17 06/19/23 09:00 BP 132/99 06/19/23 09:00 Pulse Ox 98 06/19/23 09:00 FiO2 50 06/18/23 08:00 Intake & Output 06/18/23 06/19/23 06/19/23 18:59 06:59 18:59 Intake Total 2328.271 1125 75 Output Total 1250 875 125 Balance 1078.271 250 -50 Weight 81.4 kg Intake: IV 450 1125 75 ACETAMINOPHEN IV (For NPO 200 100 ) 1,000 mg In Empty Bag 1 bag @ 400 mls/hr IVPB Q6HR [facility] Rx#:[id number] Ampicillin-Sulbactam 3 gm 100 In Sodium Chloride 0.9% 100 ml @ 200 mls/hr IVPB Q6HR [facility] Rx#:[id number] Dextrose 5% in Water 1, 150 000 ml @ 75 mls/hr IV . [id number] ONE with Sodium Bicarb (1 Meq/ml) 150 ml Rx#:[id number] Dextrose 5% in Water 1, 825 75 000 ml @ 75 mls/hr IV . [id number] [facility] with Sodium Bicarb (1 Meq/ml) 150 ml Rx#:[id number] Fluconazole in NaCl,Iso- 100 Osm 200 mg In Saline 1 100ml.bag @ 100 mls/hr IVPB DAILY [facility] Rx#: [id number] Potassium Chloride 10 meq 100 In Water For Injection 1 100ml.bag @ 100 mls/hr IVPB Q1HR [facility] Rx#: [id number] Intake, IV Titration 1878.271 Amount Ampicillin-Sulbactam 3 gm 100 In Sodium Chloride 0.9% 100 ml @ 200 mls/hr IVPB Q6HR [facility] Rx#:[id number] Dextrose 5% in Water 1, 75 000 ml @ 75 mls/hr IV . [id number] [facility] with Sodium Bicarb (1 Meq/ml) 150 ml Rx#:[id number] Dextrose 5%-0.45% NaCl 1, 750 000 ml @ 75 mls/hr IV . [id number] [facility] Rx#:[id number] Magnesium Sulfate-D5w Pmx 100 1 gm In Dextrose/Water 1 100ml.bag @ 100 mls/hr IVPB ONCE [facility] Rx#: [id number] Magnesium Sulfate-D5w Pmx 200 1 gm In Dextrose/Water 1 100ml.bag @ 100 mls/hr IVPB Q1H [facility] Rx#: [id number] Potassium Chloride 10 meq 200 In Water For Injection 1 100ml.bag @ 100 mls/hr IVPB Q1H [facility] Rx#: [id number] Potassium Chloride 10 meq 200 In Water For Injection 1 100ml.bag @ 100 mls/hr IVPB Q1H [facility] Rx#: [id number] Potassium Chloride 20 meq 100 In Water For Injection 1 100ml.bag @ 50 mls/hr IVPB Q2H [facility] Rx#: [id number] Sodium Ferric Gluconat- 100 Sucrose 125 mg In Sodium Chloride 0.9% 100 ml @ 100 mls/hr IVPB DAILY [facility] Rx#:[id number] propofoL 1,000 mg In 53.271 Empty Bag 1 bag @ 15 MCG/ KG/MIN 6.696 mls/hr IV . [id number] [facility] Rx#:[id number] Output: Gastric Drainage 250 Drainage 290 50 HARRIET Drain #1 RUQ ( 85 20 Dudodenal) HARRIET Drain #2 RUQ (Pelvic) 205 30 Urine 710 825 125 Other: Voiding Method Indwelling Catheter Indwelling Catheter # Bowel Movements 1 1 - Exam Patient is awake, comfortable, no acute distress NG tube in place Examination of the heart S1 and S2 Examination of the lungs bilateral breath sounds are heard Abdomen is soft nontender Examination lower extremity shows no evidence of edema [employer] exam shows patient is moving all 4 extremities. - Labs CBC & Chem 7: 06/19/23 03:29 06/19/23 07:46 Labs: Abnormal Lab Results - Last 24 Hours (Table) 06/18/23 06/18/23 06/18/23 Range/Units 07:15 11:59 14:05 WBC 11.4 H (3.8-10.6) k/uL RBC 2.60 L (3.80-5.40) m/uL Hgb 7.8 L (11.4-16.0) gm/dL Hct 22.9 L (34.0-46.0) % RDW 17.0 H (11.5-15.5) % Neutrophils # 8.1 H (1.3-7.7) k/uL Chloride (98-107) mmol/L Carbon Dioxide (22-30) mmol/L POC Glucose (mg/dL) 143 H (70-110) mg/dL Calcium (8.4-10.2) mg/dL Creatine Kinase 150 H (30-135) U/L 06/19/23 06/19/23 Range/Units 03:29 03:29 WBC 12.1 H (3.8-10.6) k/uL RBC 2.57 L (3.80-5.40) m/uL Hgb 7.4 L (11.4-16.0) gm/dL Hct 22.4 L (34.0-46.0) % RDW 17.1 H (11.5-15.5) % Neutrophils # 8.2 H (1.3-7.7) k/uL Chloride 114 H (98-107) mmol/L Carbon Dioxide 19 L (22-30) mmol/L POC Glucose (mg/dL) (70-110) mg/dL Calcium 7.6 L (8.4-10.2) mg/dL Creatine Kinase (30-135) U/L Microbiology - Last 24 Hours (Table) 06/16/23 06:04 Blood Culture Gram Stain - Preliminary Blood Blood Culture - Preliminary Coagulase Negative Staph Assessment and Plan Assessment: 1. Acute kidney injury, ATN secondary to hypotension and severe anemia as well as volume depletion. Currently improved. UA is benign. 2. History of polysubstance abuse with current drug screen positive for opiates and oxycodone benzos and marijuana 3. Anemia with history of black stools. Status post packed RBCs. Ongoing GI bleed 4. Hypokalemia associated with decreased oral intake and bicarb drip 5. GI bleed with perforated duodenal ulcer, status post explorative laparotomy, lysis of adhesions and peritoneal lavage and placement of drain around the duodenal ulcer on 06/17/2023 6. Metabolic acidosis secondary to acute kidney injury, status post bicarb drip Plan: Continue with IV fluids Continue IV iron and continue to monitor for need for packed RBCs transfusion.
[2023-06-19 11:24] LABS: Glucose,Whole Blood 104 mg/dL (70-110)
[2023-06-19 12:42] LABS: Anisocytosis Slight; Hypochromasia Moderate; MCH 29.2 pg (25.0-35.0); MCHC 32.4 g/dL (31.0-37.0); Mean Platelet Volume 8.2; Platelet Count 359 k/uL (150-450); Poikilocytosis Slight; RBC 2.22 m/uL (3.80-5.40); RDW 17.1 % (11.5-15.5); WBC 11.1 k/uL (3.8-10.6)
[2023-06-19] MEDS: DEXTROSE 5%-0.45% NACL 1,000 ML IV SCH (12:44)
--- NOTE | 2023-06-19 12:44 | CA ---
Transthoracic Echo Report Name: Kristina Leach Age: 47 Gender: F : 1975 Exam Date: 06/19/2023 12:39 Exam Location: [facility] Ht (in): 67 Wt (lb): 179 Ordering Physician: Walt Campbell MD ([id number]) Attending/Referring Phys: Monotype Caster Ha Hadley Procedure CPT: Indications: EF Cardiac Hx: Technical Quality: Technically difficult study Contrast 1: Total Dose (mL): Contrast 2: Total Dose (mL): MEASUREMENTS (Male / Female) Normal Values 2D ECHO LV Diastolic Diameter PLAX 4.5 cm 4.2 - 5.9 / 3.9 - 5.3 cm LV Systolic Diameter PLAX 2.9 cm IVS Diastolic Thickness 1.2 cm 0.6 - 1.0 / 0.6 - 0.9 cm LVPW Diastolic Thickness 1.1 cm 0.6 - 1.0 / 0.6 - 0.9 cm LV Relative Wall Thickness 0.5 RV Internal Dim ED PLAX 2.7 cm LVOT Diameter 2.1 cm Aortic Root Diameter 3.2 cm LA Systolic Diameter LX 2.5 cm 3.0 - 4.0 / 2.7 - 3.8 cm LV Diastolic Volume MOD BP 53.1 cm??? 67 - 155 / 56 - 104 cm??? LV Systolic Volume MOD BP 19.4 cm??? 22 - 58 / 19 - 49 cm??? LV Ejection Fraction MOD BP 63.4 % >= 55 % LV Cardiac Index MOD BP 1582.9 cm???/min???m??? LV Diastolic Volume MOD 4C 58.5 cm??? LV Systolic Volume MOD 4C 18.0 cm??? LV Ejection Fraction MOD 4C 69.2 % LV Cardiac Index MOD 4C 1902.3 cm???/min???m??? LV Diastolic Length 4C 7.6 cm LV Systolic Length 4C 6.5 cm LV Diastolic Volume MOD 2C 45.9 cm??? LV Systolic Volume MOD 2C 18.7 cm??? LV Ejection Fraction MOD 2C 59.4 % LV Cardiac Index MOD 2C 1283.1 cm???/min???m??? LV Diastolic Length 2C 7.2 cm LV Systolic Length 2C 5.7 cm LA Volume 47.8 cm??? 18 - 58 / 22 - 52 cm??? LA Volume Index 24.2 cm???/m??? 16 - 28 cm???/m??? DOPPLER AV Peak Velocity 163.3 cm/s AV Peak Gradient 10.7 mmHg LVOT Peak Velocity 147.0 cm/s LVOT Peak Gradient 8.6 mmHg LVOT Velocity Time Integral 26.9 cm LVOT Stroke Volume 96.8 cm??? LVOT Stroke Volume Index 50.2 ml/m??? LVOT Cardiac Index 4552.6 cm???/min???m??? AV Area Cont Eq pk 3.2 cm??? MV Peak Velocity 123.5 cm/s MV Peak Gradient 6.1 mmHg MV Mean Velocity 61.8 cm/s MV Mean Gradient 1.9 mmHg MV Velocity Time Integral 26.8 cm MR Peak Velocity 360.0 cm/s MR Peak Gradient 51.8 mmHg Mitral E Point Velocity 110.3 cm/s Mitral A Point Velocity 109.8 cm/s Mitral E to A Ratio 1.0 MV Deceleration Time 163.1 ms MV E' Velocity 12.4 cm/s Mitral E to MV E' Ratio 8.9 TR Peak Velocity 276.6 cm/s TR Peak Gradient 30.6 mmHg Right Ventricular Systolic Press 35.6 mmHg PV Peak Velocity 118.7 cm/s PV Peak Gradient 5.6 mmHg FINDINGS Left Ventricle Normal LV size and wall thickness. Left ventricular ejection fraction is estimated at _55-60 %. Right Ventricle Normal right ventricular size. RVSP= 36mmHg. Right Atrium Normal right atrial size. Left Atrium Normal left atrial size. Mitral Valve Structurally normal mitral valve. Trace MR Aortic Valve Trileaflet aortic valve. No aortic valve stenosis or regurgitation. Tricuspid Valve Structurally normal tricuspid valve. Mild TR. Pulmonic Valve Pulmonic valve not well visualized. No pulmonic regurgitation. Pericardium Not well visualized. Aorta Normal size aortic root. CONCLUSIONS Technically difficult study Left ventricular ejection fraction 55-60% Trace mitral regurgitation Mild tricuspid regurgitation RVSP 35 Previewed by: Dr. Toni Ortega DO (Electronically Signed) Final Date: 19 June 2023 12:43
[2023-06-19 13:09] LABS: HCT 19.9 % (34.0-46.0); HGB 6.5 gm/dL (11.4-16.0)
--- NOTE | 2023-06-19 14:42 | P.PN ---
Subjective ymes are normal urine has been negative urine drug screen was positive for benzo and cocaine patient noticed to have a wound to the dorsum aspect of the right foot for the patient did have a chest x-ray soft tissue swelling edema of the foot without evidence for fracture or bony erosion chest x-ray cardiomegaly mild pulm vascular congestion infectious disease was consulted for right foot wound most information has been obtained from review the chart as the patient remains to be lethargic and did not provide any history as far as right foot wound and the kind of treatment he is receiving for it ymes are normal urine has been negative urine drug screen was positive for benzo and cocaine patient noticed to have a wound to the dorsum aspect of the right foot for the patient did have a chest x-ray soft tissue swelling edema of the foot without evidence for fracture or bony erosion chest x-ray cardiomegaly mild pulm vascular congestion infectious disease was consulted for right foot wound most information has been obtained from review the chart as the patient remains to be lethargic and did not provide any history as far as right foot wound and the kind of treatment he is receiving for it -- CT of the abdomen and pelvis completed reveals upper abdomen inflammation likely secondary to perforated gastric ulcer; circumferential wall thickening of the gallbladder with hyperemia likely secondary to 1 -- Stat surgical consult is done -- Hemoglobin is down to 5.6; 2 units of packed RBCs are ordered -- Patient is being transferred to ICU 06/17/2023 Patient is seen and evaluated in room at bedside; patient had CT of the abdomen and pelvis completed yesterday which revealed perforated gastric ulcer; general surgery was consulted and patient was transferred to ICU Vital signs are reviewed and stable with temperature of 97.9, pulse 67, respiration 13 and blood pressure 147/94 White count is 8.7, hemoglobin 8.2, hematocrit 24.8, and platelet count 326,000. Sodium 141, potassium 3.6, chlorides 115, CO2 16, BUN 14, and creatinine 0.78. Albumin is 2.1. -- Patient has received a total of 4 units of packed RBCs; hemoglobin is stable at 8.2 General surgery and with the plans to take the patient to OR this afternoon; patient has been cleared by cardiology 06/18/2023 Patient was intubated in the morning, M she was extubated Currently on BiPAP. Mildly tachypneic. She remains on broad-spectrum antibiotic of Unasyn and fluconazole for suspected peritonitis from perforated peptic ulcer. Status post exploratory laparotomy and lysis of adhesions with peritoneal lavage Blood culture is contamination present. Currently on gentle hydration of D5 half normal saline at 75 mL/h 06/19/2023 Patient status post extubation and currently on 3 L oxygen via nasal cannula monitored tachypneic and tachycardic, earlier was on BiPAP and she tolerates this well as well. Her hemoglobin dropped today to 6.5 and she's getting IV iron. She is status post multiple blood transfusion. WBCs 11,000. Extremities on Unasyn and fluconazole. She developed agitation at times requiring Haldol when necessary for her enceph alopathic Patient is still nothing by mouth and found to be started on TPN today Objective - Vital Signs Vital signs: Vital Signs Temp 98.3 F 06/19/23 12:00 Pulse 90 06/19/23 14:00 Resp 17 06/19/23 14:00 BP 127/82 06/19/23 14:00 Pulse Ox 97 06/19/23 14:00 FiO2 50 06/18/23 08:00 Intake & Output 06/18/23 06/19/23 06/19/23 18:59 06:59 18:59 Intake Total 2328.271 1125 860 Output Total 1250 875 490 Balance 1078.271 250 370 Weight 81.4 kg 81.4 kg Intake: IV 450 1125 860 ACETAMINOPHEN IV (For NPO 200 100 200 ) 1,000 mg In Empty Bag 1 bag @ 400 mls/hr IVPB Q6HR ON LICENSE OF [facility] Rx#:[id number] Ampicillin-Sulbactam 3 gm 100 100 In Sodium Chloride 0.9% 100 ml @ 200 mls/hr IVPB Q6HR ON LICENSE OF [facility] Rx#:[id number] D5.45 385 Dextrose 5% in Water 1, 150 000 ml @ 75 mls/hr IV . [id number] ONE with Sodium Bicarb (1 Meq/ml) 150 ml Rx#:[id number] Dextrose 5% in Water 1, 825 75 000 ml @ 75 mls/hr IV . [id number] CATHY with Sodium Bicarb (1 Meq/ml) 150 ml Rx#:[id number] Fluconazole in NaCl,Iso- 100 100 Osm 200 mg In Saline 1 100ml.bag @ 100 mls/hr IVPB DAILY ON LICENSE OF [facility] Rx#: [id number] Potassium Chloride 10 meq 100 In Water For Injection 1 100ml.bag @ 100 mls/hr IVPB Q1HR ON LICENSE OF [facility] Rx#: [id number] Intake, IV Titration 1878.271 Amount Ampicillin-Sulbactam 3 gm 100 In Sodium Chloride 0.9% 100 ml @ 200 mls/hr IVPB Q6HR [facility] Rx#:[id number] Dextrose 5% in Water 1, 75 000 ml @ 75 mls/hr IV . [id number] CATHY with Sodium Bicarb (1 Meq/ml) 150 ml Rx#:[id number] Dextrose 5%-0.45% NaCl 1, 750 000 ml @ 75 mls/hr IV . [id number] ON LICENSE OF [facility] Rx#:[id number] Magnesium Sulfate-D5w Pmx 100 1 gm In Dextrose/Water 1 100ml.bag @ 100 mls/hr IVPB ONCE ONE Rx#: [id number] Magnesium Sulfate-D5w Pmx 200 1 gm In Dextrose/Water 1 100ml.bag @ 100 mls/hr IVPB Q1H ON LICENSE OF [facility] Rx#: [id number] Potassium Chloride 10 meq 200 In Water For Injection 1 100ml.bag @ 100 mls/hr IVPB Q1H [facility] Rx#: [id number] Potassium Chloride 10 meq 200 In Water For Injection 1 100ml.bag @ 100 mls/hr IVPB Q1H ON LICENSE OF [facility] Rx#: [id number] Potassium Chloride 20 meq 100 In Water For Injection 1 100ml.bag @ 50 mls/hr IVPB Q2H ON LICENSE OF [facility] Rx#: [id number] Sodium Ferric Gluconat- 100 Sucrose 125 mg In Sodium Chloride 0.9% 100 ml @ 100 mls/hr IVPB DAILY ON LICENSE OF [facility] Rx#:[id number] propofoL 1,000 mg In 53.271 Empty Bag 1 bag @ 15 MCG/ KG/MIN 6.696 mls/hr IV . [id number] ON LICENSE OF [facility] Rx#:[id number] Output: Gastric Drainage 250 Drainage 290 50 HARRIET Drain #1 RUQ ( 85 20 Dudodenal) HARRIET Drain #2 RUQ (Pelvic) 205 30 Urine 710 825 490 Other: Voiding Method Indwelling Catheter Indwelling Catheter Indwelling Catheter # Bowel Movements 1 1 1 - Exam -GENERAL: The patient is intubated HEENT: Pupils are round and equally reacting to light. EOMI. No scleral icterus. No conjunctival pallor. Normocephalic, atraumatic. No pharyngeal erythema. No thyromegaly. CARDIOVASCULAR: S1 and S2 present. No murmurs, rubs, or gallops. PULMONARY: Chest is clear to auscultation, no wheezing , no crackles. -ABDOMEN: Soft, nontender, nondistended, normoactive bowel sounds. No palpable organomegaly. Surgical wound with a dressing in place MUSCULOSKELETAL: No joint swelling or deformity. EXTREMITIES: No cyanosis, clubbing, or pedal edema. NEUROLOGICAL: Gross neurological examination did not reveal any focal deficits. SKIN: No rashes. no petechiae. - Labs CBC & Chem 7: 06/19/23 12:21 06/19/23 07:46 Labs: Abnormal Lab Results - Last 24 Hours (Table) 06/18/23 06/19/23 06/19/23 Range/Units 07:15 03:29 03:29 WBC 12.1 H (3.8-10.6) k/uL RBC 2.57 L (3.80-5.40) m/uL Hgb 7.4 L (11.4-16.0) gm/dL Hct 22.4 L (34.0-46.0) % RDW 17.1 H (11.5-15.5) % Neutrophils # 8.2 H (1.3-7.7) k/uL Chloride 114 H (98-107) mmol/L Carbon Dioxide 19 L (22-30) mmol/L Calcium 7.6 L (8.4-10.2) mg/dL Creatine Kinase 150 H (30-135) U/L 06/19/23 Range/Units 12:21 WBC 11.1 H (3.8-10.6) k/uL RBC 2.22 L (3.80-5.40) m/uL Hgb 6.5 L* (11.4-16.0) gm/dL Hct 19.9 L* (34.0-46.0) % RDW 17.1 H (11.5-15.5) % Neutrophils # (1.3-7.7) k/uL Chloride (98-107) mmol/L Carbon Dioxide (22-30) mmol/L Calcium (8.4-10.2) mg/dL Creatine Kinase (30-135) U/L Microbiology - Last 24 Hours (Table) 06/16/23 06:04 Blood Culture Gram Stain - Final Blood Blood Culture - Final Staph hominis sub sp. hominis Assessment and Plan Assessment: #. Acute perforated due to ulcerative status post exploratory laparotomy with lysis of adhesions and peritoneal lavage = With postop care, continue nothing by mouth - Plan to start TPN - General surgery on the case. Continue gentle hydration and antibiotic #. Altered mental status; likely multifactorial related to polysubstance abuse versus AK I/dehydration - Improving #. Acute renal injury/dehydration - BUN/creatinine elevated at 47/2.29 -- We will start patient on IV fluid hydration form of normal saline at a rate of 100 mL an hour; monitor strict KATERINE's, daily weights, renal function and electrolytes - Avoid nephrotoxins and hypotension #. Severe anemia; patient received 2 units packed RBCs in ED; we will monitor H&H every 6 hours with plans to transfuse if hemoglobin is less than 7.0; stool occult blood on stool specimens; Protonix 40 mg IV every 12 hours -- Consult general surgery #. Electrolyte imbalance; supplemented in ED; monitor electrolytes closely and supplement as needed #. Polysubstance abuse; urine drug screen is positive for opiates, benzodiazepines and marijuana #. Hypertension; metoprolol 12.5 mg twice a day #. Depression/anxiety; patient takes Wellbutrin, Zoloft and BuSpar DVT prophylaxis; SCDs only CODE STATUS; full code
--- NOTE | 2023-06-19 17:26 | P.OP ---
Date of Procedure: 06/19/23 Description of Procedure: Preoperative Diagnosis: Need for peripheral nutrition Postoperative Diagnosis: Same. Procedure(s) Performed: Ultrasound-guided cannulation left basilic vein. Insertion of peripherally inserted central catheter under fluoroscopic guidance. Anesthesia: local 1% lidocaine plain Surgeon: Wilder Estimated Blood Loss (ml): 5 IV fluids (ml): 0 Urine output (ml): 0 Pathology: none sent Condition: stable Disposition: no change Indications for Procedure: Patient requires long-term IV antibiotics as an outpatient patient is offered a PICC line to allow for intravenous administration of antibiotics. Description of Procedure: Patient was brought to the special procedure suite. The left upper extremity sterilely prepped and draped in usual manner. Ultrasound was utilized to identify the basilic vein which was normally compressible free of visible thrombus. Permenant image was stored. 1% Xylocaine was utilized for local anesthesia tissues overlying the vein. Through this anesthetized area and with the aid of ultrasound a micropuncture needle was utilized to cannulate the vein. Once cannulated, Softip guidewire was advanced into the vein. The needle was withdrawn and a micropuncture sheath and dilator advanced over the guidewire. The guidewire was withdrawn and exchanged for the PICC guidewire and measured 52cm to the cavoatrial junction. The catheter was cut to size and advanced into the cavoatrial junction without resistance. The sheath was peeled away. Blood was easily withdrawn through the catheter and the catheter was then flushed with heparinized saline solution and secured to the skin. Patient tolerated procedure well and was returned to their room in satisfactory and stable condition.
[2023-06-19 21:26] LABS: Anisocytosis Slight; HCT 22.5 % (34.0-46.0); HGB 7.3 gm/dL (11.4-16.0); Hypochromasia Marked; MCH 29.7 pg (25.0-35.0); MCHC 32.3 g/dL (31.0-37.0); MCV 91.9 fL (80.0-100.0); Mean Platelet Volume 8.4; Platelet Count 315 k/uL (150-450); Poikilocytosis Slight; RBC 2.45 m/uL (3.80-5.40); RDW 16.5 % (11.5-15.5); WBC 10.1 k/uL (3.8-10.6)
--- NOTE | 2023-06-19 22:10 | PN ---
PROGRESS NOTE SUBJECTIVE: This is a 47-year-old lady who has a history of polysubstance abuse, presented to hospital with abdominal discomfort and was found to have perforated gastric ulcer and cardiology had been consulted because of an abnormal EKG. Today, the patient is awake, alert, extubated, and remains in sinus rhythm. Had anemia and required blood transfusion. She denies any cardiac symptoms. PHYSICAL EXAMINATION: GENERAL: Comfortable at rest. VITAL SIGNS: Heart rate is 100 beats per minute, blood pressure 130/99, respiratory rate is 18. CHEST: Reveals diminished air entry bilaterally. HEART: Reveals first and second heart sounds. No gallop, no murmur. ABDOMEN: Soft, status post surgery. EXTREMITIES: Did not reveal any edema. LABORATORY DATA: Labs show a hemoglobin of 7.4, potassium is 4.1, creatinine is 0.8. ASSESSMENT: 1. Sinus tachycardia. 2. Status post perforated gastric ulcer and surgery. 3. Abnormal EKG. PLAN: We are waiting on echo results. Continue IV metoprolol. MMODL / IJN: [id number] /
--- NOTE | 2023-06-19 22:27 | P.PN ---
Subjective Progress Note Date: 06/19/23 CHIEF COMPLAINT: Abdominal pain HISTORY OF PRESENT ILLNESS: The patient is a 47 year old female who presented with chronic perforated duodenal ulcer. She is status post exploratory laparotomy, gastric lavage, intraoperative EGD confirming duodenal ulcer is completely sealed. Patient pulled her NG tube last night. Reports of bloody stools. Hgb drop to 6.5. Transfusion 1 unit given. She is resting comfortably. REVIEW OF ORGAN SYSTEMS: No fevers or chills. No shortness of breath. PHYSICAL EXAM: VITALS: Reviewed CONSTITUTIONAL: Well developed and in no acute distress. EYES: Conjuctivae without sclera icterus. Extraocular movements grossly intact. HEAD, EARS, NOSE, THROAT: Moist buccal mucosa. Head is atraumatic, normocephalic. Hears conversational speech. No nasal drainage. RESPIRATORY: Non-labored respirations and equal bilateral excursions. No gross wheezes. CARDIOVASCULAR: Palpable 2+ radial pulses. ABDOMEN: Incision clean, dry and intact. MUSCULOSKELETAL: No clubbing cyanosis or edema SKIN: Warm and well perfused with good skin turgor. NEUROLOGIC: Cranial nerves II through XII grossly intact. No focal or lateralizing signs. PSYCH: Flat affect. Alert and oriented to person, place and time. Displays appropriate insight. CLINCAL LABS: Reviewed. WBC normal. Hgb 6.6. Total 6 u PRBCs during current hospitalization. ASSESSMENT: 1. Duodenal ulcer, recurrent 2. Localized pneumoperitoneum 3. Acute anemia 4. Acute kidney injury 5. Tobacco abuse 6. Hematemesis 7. Acute blood loss anemia PLAN: 1. Strict NPO 2. Transfuse for Hgb less than 7.0 and symptomatic. 3. Pain management services requested for pain management in presence of polysubstance abuse. 4. Disposition is guarded. Objective - Vital Signs Vital signs: Vital Signs Temp 97.8 F 06/19/23 20:00 Pulse 89 06/19/23 22:00 Resp 15 06/19/23 22:00 BP 132/94 06/19/23 22:00 Pulse Ox 98 06/19/23 22:00 FiO2 50 06/18/23 08:00 Intake & Output 06/19/23 06/19/23 06/20/23 06:59 18:59 06:59 Intake Total 1125 1435 280 Output Total 875 740 400 Balance 250 695 -120 Weight 81.4 kg 81.4 kg Intake: IV 1125 1125 280 ACETAMINOPHEN IV (For NPO 100 200 ) 1,000 mg In Empty Bag 1 bag @ 400 mls/hr IVPB Q6HR [facility] Rx#:[id number] Ampicillin-Sulbactam 3 gm 100 200 In Sodium Chloride 0.9% 100 ml @ 200 mls/hr IVPB Q6HR [facility] Rx#:[id number] D5.45 550 280 Dextrose 5% in Water 1, 825 75 000 ml @ 75 mls/hr IV . [id number] CATHY with Sodium Bicarb (1 Meq/ml) 150 ml Rx#:[id number] Fluconazole in NaCl,Iso- 100 Osm 200 mg In Saline 1 100ml.bag @ 100 mls/hr IVPB DAILY [facility] Rx#: [id number] Potassium Chloride 10 meq 100 In Water For Injection 1 100ml.bag @ 100 mls/hr IVPB Q1HR [facility] Rx#: [id number] Blood Product 310 Rc As-1 Unit 310 [id number] Output: Drainage 50 30 HARRIET Drain #1 RUQ ( 20 20 Dudodenal) HARRIET Drain #2 RUQ (Pelvic) 30 10 Urine 825 710 400 Other: Voiding Method Indwelling Catheter Indwelling Catheter Indwelling Catheter # Bowel Movements 1 1 1 - Labs CBC & Chem 7: 06/21/23 05:06 06/21/23 05:06 Labs: Abnormal Lab Results - Last 24 Hours (Table) 06/19/23 06/19/23 06/19/23 Range/Units 03:29 03:29 12:21 WBC 12.1 H 11.1 H (3.8-10.6) k/uL RBC 2.57 L 2.22 L (3.80-5.40) m/uL Hgb 7.4 L 6.5 L* (11.4-16.0) gm/dL Hct 22.4 L 19.9 L* (34.0-46.0) % RDW 17.1 H 17.1 H (11.5-15.5) % Neutrophils # 8.2 H (1.3-7.7) k/uL Chloride 114 H (98-107) mmol/L Carbon Dioxide 19 L (22-30) mmol/L Calcium 7.6 L (8.4-10.2) mg/dL Crossmatch 06/19/23 06/19/23 Range/Units 14:23 21:00 WBC (3.8-10.6) k/uL RBC 2.45 L (3.80-5.40) m/uL Hgb 7.3 L (11.4-16.0) gm/dL Hct 22.5 L (34.0-46.0) % RDW 16.5 H (11.5-15.5) % Neutrophils # (1.3-7.7) k/uL Chloride (98-107) mmol/L Carbon Dioxide (22-30) mmol/L Calcium (8.4-10.2) mg/dL Crossmatch See Detail Microbiology - Last 24 Hours (Table) 06/16/23 06:04 Blood Culture Gram Stain - Final Blood Blood Culture - Final Staph hominis sub sp. hominis
[2023-06-19 23:52] LABS: Glucose,Whole Blood 80 mg/dL (70-110)
[2023-06-20] MEDS: HYDROmorphone 1 MG/ML 1 ML SYRINGE IVP PRN ×5 (00:31→15:20)
[2023-06-20] MEDS: POTASSIUM CHLORIDE 10 MEQ in WATER FOR INJECTION 1 100ML.BAG IVPB SCH ×4 (01:32→15:23)
[2023-06-20] MEDS: LORazepam 2 MG/ML INJ IV PRN ×3 (03:02→21:11)
[2023-06-20] MEDS: DEXTROSE 5%-0.45% NACL 1,000 ML IV SCH ×2 (03:46→15:35)
[2023-06-20] MEDS: ACETAMINOPHEN IV (For NPO) 1,000 MG in EMPTY BAG 1 BAG IVPB SCH ×3 (05:11→17:33)
[2023-06-20] MEDS: METOPROLOL TARTRATE 5 MG/5 ML VIAL IVP SCH ×3 (05:12→17:34)
[2023-06-20] MEDS: AMPICILLIN-SULBACTAM 3 GM in SODIUM CHLORIDE 0.9% 100 ML IVPB SCH ×3 (05:12→17:36)
[2023-06-20 05:55] LABS: Glucose,Whole Blood 86 mg/dL (70-110)
[2023-06-20] MEDS: HALOPERIDOL LACTATE 5 MG/ML 1 ML VIAL IVP PRN ×3 (05:55→16:13)
[2023-06-20 06:53] LABS: African American GFR (CKD) >90 (>60 ml/min/1.73 sqM); Anion Gap 7 mmol/L; Blood Urea Nitrogen 9 mg/dL (7-17); Calcium 7.6 mg/dL (8.4-10.2); Carbon Dioxide 19 mmol/L (22-30); Chloride 118 mmol/L (98-107); Glucose 71 mg/dL (74-99); Non-African American GFR(CKD) >90 (>60 ml/min/1.73 sqM); Potassium 4.1 mmol/L (3.5-5.1); Sodium 144 mmol/L (137-145)
[2023-06-20 06:56] LABS: Anisocytosis Slight; Basophils % (A) 0 %; Eosinophils # (A) 0.4 k/uL (0-0.7); Eosinophils % (A) 5 %; HCT 22.1 % (34.0-46.0); HGB 7.1 gm/dL (11.4-16.0); Hypochromasia Moderate; Lymphocytes # (A) 2.5 k/uL (1.0-4.8); Lymphocytes % (A) 27 %; MCH 29.3 pg (25.0-35.0); MCHC 32.1 g/dL (31.0-37.0); MCV 91.1 fL (80.0-100.0); Mean Platelet Volume 8.9; Monocytes # (A) 0.4 k/uL (0-1.0); Monocytes % (A) 4 %; Neutrophils # (A) 5.7 k/uL (1.3-7.7); Neutrophils % (A) 63 %; Platelet Count 319 k/uL (150-450); Poikilocytosis Slight; RBC 2.42 m/uL (3.80-5.40)
[2023-06-20] MEDS: FLUCONAZOLE IN NACL,ISO-OSM 200 MG in SALINE 1 100ML.BAG IVPB SCH (08:48)
[2023-06-20] MEDS: SODIUM FERRIC GLUCONAT-SUCROSE 125 MG in SODIUM CHLORIDE 0.9% 100 ML IVPB SCH (08:48)
[2023-06-20] MEDS: PANTOPRAZOLE 40 MG/10 ML VIAL IV SCH ×2 (08:49→22:45)
--- NOTE | 2023-06-20 09:33 | P.PN ---
Subjective Progress Note Date: 06/20/23 On today's evaluation of 06/18/2023, I'm seeing the patient for a follow-up. The patient is postop day #1 as the patient was found to have an acute on top of chronic perforated duodenal ulcer. She was experiencing hematemesis. The patient was taken to the operating room and the patient underwent an ex-with her laparotomy and lysis of adhesions over 1-1/2 hours, intraoperative EGD was done along with a gastric lavage with 500 mL of ice water saline, a HARRIET drain was placed anterior to the duodenal ulcer, peritoneal lavage was done with a total of 2 L and the wound was closed. Patient is currently still intubated on a mechanical ventilator. She is awake and alert and she was taken off sedation th morning. She was subsequently placed on a spontaneous breathing and currently she is on a pressure support of 5 and a PEEP of 5. She is able to generate tidal volume of 350-400 mL and the respiratory rate of 16. She is very much calm and comfortable while being on a spontaneous mode of respiration. In terms of hemodynamics, the patient is on no pressors. She is on IV fluids currently running at D5 W with 3 A of bicarb at 75 mL an hour. Her blood work from today shows a stable hemoglobin of 7.4, white cell count of 9.5 and a platelet count of 3 on 36. Sodium is at 139, BUN is at 8 with a creatinine of 0.6 and a potassium level of 3.6. Blood gases from this morning showed a pH of 7.34 with a pCO2 of 44 and pO2 of 102. The chest x-ray is showing adequate positioning of the orotracheal tube. There is also infiltrates mainly in the left upper lobe area and left retrocardiac area along with some atelectatic changes in lung bases bilaterally. The blood culture that was obtained earlier showed a coagulase-negative staph and the patient is currently on IV Unasyn and Diflucan. She is on Dilaudid for pain control. Her urine drug screen was positive for a combination of opiates, oxycodone, benzodiazepine and marijuana. No amphetamines were identified in the urine drug screen. Note that the patient originally presented to us on 06/15/2023 after being in the emergency room multiple occasions. During this current admission, she was confused and she had collapsed on the floor. She is known to have previous episodes of respiratory failure, rhabdomyolysis, depression, PTSD and substance abuse. On this morning's evaluation, she is following commands and answering questions appropriately. Her metabolic acidosis has recovered. Her pro calcitonin level was at 0.45. Her CPK has not been checked. On today's evaluation of 06/19/2023, the patient is postop day #2. The patient remains nothing by mouth. NG tube was removed. No signs of any bleeding and hemoglobin stable at 7.4. She remains nothing by mouth upon the request made by surgery and the patient will have a PICC line inserted for TPN. The plan is to keep nothing by mouth for the next 7 days and this is based on surgical recommendations. The patient has HARRIET drains in place, HARRIET drain #1 is anterior to the duodenum and is draining approximately 20 mL an HARRIET #2 drain is in the abdomen and this has drained serosanguineous material in the order of 100 mL since yesterday. Abdomen is soft. Surgical one-sided dry clean and intact. No nausea. No emesis. White cycles of 12.1 and the patient remains on a Diflucan. Diflucan. Renal function stable. BUN is at 30 with a creatinine of 0.8 and a sodium bicarb is at 19 and sodium level is at 141. She is afebrile. She is having episodes of agitation and delirium. She is known to have chronic anxiety maintain on a combination of Zoloft and BuSpar on outpatient basis. She also takes Wellbutrin. Note that she is unable to take any of her oral medication. She was given a dose of Haldol yesterday which helped her with her delirium. She seems to be more appropriate this morning. She was given Haldol 5 mg IV push 1. No nausea. No emesis. She remains on IV Protonix. She is currently on oxygen at 2 L nasal cannula. Using incentive spirometer. CPK was checked and the levels were not elevated. IV fluids are in the form of D5 half-normal saline at the rate of 55 mL an hour. On 06/20/2023, the patient is postop day #3. She remains nothing by mouth. NG tube was removed. The patient is a PICC line and TPN to is to be started today. Abdominal wound is dry and clean and the patient has 2 HARRIET drains, HARRIET drain #1 has put out 30 mL an HARRIET drain #2 has put out is over the past 24 hours. She is calm and comfortable. She is on oxygen at 2 L. She is, comfortable. She is on IV antibiotics with a combination of Unasyn and Diflucan. There was a single blood culture that showed staph hominis and a second blood culture was negative. I would suggest repeating another set of blood cultures to make sure there is ongoing bacteremia with staph. In terms of her blood work, the patient has a white cell count of 9, hemoglobin of 7.1 and a platelet count of 319. BUN is at 9 with a creatinine of 0.7 and a sodium level is at 144. IV fluids are normal form of D5 half-normal saline at the rate of 75 mL an hour. She was having some episodes of agitation and delirium. Note that she has chronic anxiety maintain on a combination of Wellbutrin and Zoloft and BuSpar outpatient basis. Based on an nothing by mouth status, the patient is unable to take postmedication and the patient is currently receiving Haldol on an as-needed basis. This morning, she is well rested. Hdz catheter still in place. Is using the incentive spirome ter. No other significant events overnight. She remains on IV Protonix. Note that the patient also has been having episodes of melanotic stool and she had 3 episodes this morning. Surgery will made aware of this. Hemoglobin is stable at 7.1. She received a unit of packed RBC on 06/19/2023 for a hemoglobin of 6.5. She did respond she came up to 7.3 and this morning she is down to 7.1. Objective - Vital Signs Vital signs: Vital Signs Temp 97.3 F L 06/20/23 08:00 Pulse 95 06/20/23 09:00 Resp 14 06/20/23 09:00 BP 124/91 06/20/23 09:00 Pulse Ox 99 06/20/23 09:00 FiO2 50 06/18/23 08:00 Intake & Output 06/19/23 06/20/23 06/20/23 18:59 06:59 18:59 Intake Total 1435 1480 425 Output Total 740 1195 400 Balance 695 285 25 Weight 81.4 kg 83.2 kg Intake: IV 1125 1480 225 ACETAMINOPHEN IV (For NPO 200 100 ) 1,000 mg In Empty Bag 1 bag @ 400 mls/hr IVPB Q6HR [facility] Rx#:[id number] Ampicillin-Sulbactam 3 gm 200 100 In Sodium Chloride 0.9% 100 ml @ 200 mls/hr IVPB Q6HR [facility] Rx#:[id number] D5.45 550 880 225 Dextrose 5% in Water 1, 75 000 ml @ 75 mls/hr IV . [id number] [facility] with Sodium Bicarb (1 Meq/ml) 150 ml Rx#:[id number] Fluconazole in NaCl,Iso- 100 Osm 200 mg In Saline 1 100ml.bag @ 100 mls/hr IVPB DAILY [facility] Rx#: [id number] Potassium Chloride 10 meq 400 In Water For Injection 1 100ml.bag @ 100 mls/hr IVPB Q1HR [facility] Rx#: [id number] Intake, IV Titration 200 Amount Fluconazole in NaCl,Iso- 100 Osm 200 mg In Saline 1 100ml.bag @ 100 mls/hr IVPB DAILY [facility] Rx#: [id number] Sodium Ferric Gluconat- 100 Sucrose 125 mg In Sodium Chloride 0.9% 100 ml @ 100 mls/hr IVPB DAILY [facility] Rx#:[id number] Blood Product 310 Rc As-1 Unit 310 [id number] Output: Drainage 30 60 50 HARRIET Drain #1 RUQ ( 20 20 20 Dudodenal) HARRIET Drain #2 RUQ (Pelvic) 10 40 30 Urine 710 1135 350 Other: Voiding Method Indwelling Catheter Indwelling Catheter # Bowel Movements 1 1 3 - Exam No acute distress, oriented 3. This morning, the patient is calm and comfortable, slightly sleepy maintain on 2 L of oxygen by nasal cannula. Head exam was generally normal. There was no scleral icterus or corneal arcus. M ucous membranes were moist. HEENT examination is grossly unremarkable. Neck supple. Full range of motion. No adenopathy thyromegaly or neck vein distention. Cardiovascular examination reveals regular rhythm rate. S1-S2 normal. No S3 or S4. No discernible murmur noted. Lungs reveal clear breath sounds. Breath sounds are equal bilaterally. No adventitious lung sounds including wheezes rhonchi or crackles. Abdomen soft, but tender. Bowel sounds are noted. The patient has 2 drains, HARRIET drain #1 is anterior to the duodenum and HARRIET drain #2 one is in the peritoneal cavity. Output is minimal at this point in time, serosanguineous. The patient also has a provena applied to her anterior abdominal wound. Extremities are intact. No cyanosis clubbing or edema. Skin is without rash or lesion. Neurologic examination is nonfocal and the patient is moving all 4 extremities and she is communicating. Psychiatric history, reports increased anxiety. - Labs CBC & Chem 7: 06/20/23 05:26 06/20/23 05:26 Labs: Abnormal Lab Results - Last 24 Hours (Table) 06/19/23 06/19/23 06/19/23 Range/Units 12:21 14:23 21:00 WBC 11.1 H (3.8-10.6) k/uL RBC 2.22 L 2.45 L (3.80-5.40) m/uL Hgb 6.5 L* 7.3 L (11.4-16.0) gm/dL Hct 19.9 L* 22.5 L (34.0-46.0) % RDW 17.1 H 16.5 H (11.5-15.5) % Chloride (98-107) mmol/L Carbon Dioxide (22-30) mmol/L Glucose (74-99) mg/dL Calcium (8.4-10.2) mg/dL Crossmatch See Detail 06/20/23 06/20/23 Range/Units 05:26 05:26 WBC (3.8-10.6) k/uL RBC 2.42 L (3.80-5.40) m/uL Hgb 7.1 L (11.4-16.0) gm/dL Hct 22.1 L (34.0-46.0) % RDW 17.0 H (11.5-15.5) % Chloride 118 H (98-107) mmol/L Carbon Dioxide 19 L (22-30) mmol/L Glucose 71 L (74-99) mg/dL Calcium 7.6 L (8.4-10.2) mg/dL Crossmatch Microbiology - Last 24 Hours (Table) 06/18/23 16:38 Blood Culture - Preliminary Blood 06/16/23 06:04 Blood Culture Gram Stain - Final Blood Blood Culture - Final Staph hominis sub sp. hominis Assessment and Plan Plan: Acute on chronic duodenal ulcer, the patient is status post extensive laparotomy, gastric lavage, peritoneal lavage and lysis of adhesions. The patient is currently postop day #3. HARRIET drains are in place and output is minimal at this point. Abdominal wound is clean. The patient is currently on a combination of Unasyn and Diflucan, the patient remains nothing by mouth. Antibiotic coverage is unchanged and the patient is receiving a combination of Unasyn and Diflucan Also extensive laparotomy, postoperative day #3 Melanotic stool, probably related to a previous upper GI bleed. Hemoglobin dropped down to 6.5 yesterday and is currently up to 7.1 posttransfusion 1 unit of packed RBC and will monitor for any further episodes of GI bleed and the patient will be kept nothing by mouth on IV Protonix PICC line inserted and the patient will be started on TPN for nutritional support Staph hominis in the blood, likely contaminant, would like to repeat blood cultures and obtain appropriate calcitonin level Post ventilator dependent respiratory failure and the patient was extubated yesterday to 2 L of oxygen nasal cannula Anemia, status post 5 units of PRBCs total. Hemoglobin today is at 7.1 Recent EGD, June 06, which revealed a duodenal ulcer with previous ulcer repair. Hypokalemia, recovered Non-anion gap metabolic acidosis, serum bicarbs of 19 and the patient is on D5 half-normal saline 30-55 mL an hour History of polysubstance abuse and respiratory failure. Previous episode of respiratory failure, prolonged, requiring tracheostomy tube insertion. History of rhabdomyolysis. History of acute kidney injury History of methicillin-resistant staph aureus sepsis. History of PTSD. History of depression. Episodes of delirium, given Haldol, more appropriate on today's evaluation Plan Repeat another set of blood cultures Check pro calcitonin level Continue same antibiotic coverage Watch for any ongoing signs of GI bleeding Keep the patient nothing by mouth IV Protonix The patient extubated to 2 L of oxygen by nasal cannula Encourage the use of incentive spirometer NG tube has been removed Initiate TPN for nutritional support Keep nothing by mouth Continue Unasyn and Diflucan for now Monitor output from the HARRIET drain #1 and HARRIET drain #2 Monitor for a drop in hemoglobin which is currently stable Compression devices to lower extremities IV Protonix Haldol 2 mg IV every 4-6 hours for delirium Dilaudid for pain control We'll continue to follow
[2023-06-20 10:32] LABS: Anisocytosis Slight; Basophils # (A) 0.1 k/uL (0-0.2); Basophils % (A) 1 %; Eosinophils # (A) 0.3 k/uL (0-0.7); Eosinophils % (A) 4 %; HGB 7.1 gm/dL (11.4-16.0); Hypochromasia Moderate; Lymphocytes % (A) 23 %; MCH 29.6 pg (25.0-35.0); MCHC 32.3 g/dL (31.0-37.0); MCV 91.6 fL (80.0-100.0); Mean Platelet Volume 8.2; Monocytes # (A) 0.3 k/uL (0-1.0); Monocytes % (A) 3 %; Neutrophils # (A) 6.1 k/uL (1.3-7.7); Neutrophils % (A) 69 %; Platelet Count 331 k/uL (150-450); Poikilocytosis Slight; RDW 16.8 % (11.5-15.5); WBC 8.9 k/uL (3.8-10.6)
[2023-06-20] MEDS ORDERED: DEXTROSE 50% SYRINGE 50 ML IVP PRN ×2 (10:48)
[2023-06-20 11:41] LABS: Glucose,Whole Blood 94 mg/dL (70-110)
--- NOTE | 2023-06-20 11:46 | P.PN ---
Subjective Patient is seen for follow-up for acute kidney injury. She was transferred to the ICU secondary to ongoing GI bleed. CT abdomen showed evidence of free air suggesting perforated gastric ulcer. Status post explorative laparotomy with lysis of adhesions and placement of drain in the duodenal ulcer and peritoneal lavage on 06/17/2023. Hemodynamically stable. Maintained on IV fluids Good urine output Serum creatinine improved to 0.79 mg/dL. Potassium is 4.1 Melanotic stools noted today. Hemoglobin 7.1 Objective - Vital Signs Vital signs: Vital Signs Temp 97.3 F L 06/20/23 08:00 Pulse 108 H 06/20/23 11:00 Resp 23 06/20/23 11:00 BP 145/99 06/20/23 11:00 Pulse Ox 96 06/20/23 11:00 FiO2 50 06/18/23 08:00 Intake & Output 06/19/23 06/20/23 06/20/23 18:59 06:59 18:59 Intake Total 1435 1480 575 Output Total 740 1195 660 Balance 695 285 -85 Weight 81.4 kg 83.2 kg Intake: IV 1125 1480 375 ACETAMINOPHEN IV (For NPO 200 100 ) 1,000 mg In Empty Bag 1 bag @ 400 mls/hr IVPB Q6HR [facility] Rx#:[id number] Ampicillin-Sulbactam 3 gm 200 100 In Sodium Chloride 0.9% 100 ml @ 200 mls/hr IVPB Q6HR [facility] Rx#:[id number] D5.45 550 880 375 Dextrose 5% in Water 1, 75 000 ml @ 75 mls/hr IV . [id number] [facility] with Sodium Bicarb (1 Meq/ml) 150 ml Rx#:[id number] Fluconazole in NaCl,Iso- 100 Osm 200 mg In Saline 1 100ml.bag @ 100 mls/hr IVPB DAILY [facility] Rx#: [id number] Potassium Chloride 10 meq 400 In Water For Injection 1 100ml.bag @ 100 mls/hr IVPB Q1HR [facility] Rx#: [id number] Intake, IV Titration 200 Amount Fluconazole in NaCl,Iso- 100 Osm 200 mg In Saline 1 100ml.bag @ 100 mls/hr IVPB DAILY [facility] Rx#: [id number] Sodium Ferric Gluconat- 100 Sucrose 125 mg In Sodium Chloride 0.9% 100 ml @ 100 mls/hr IVPB DAILY [facility] Rx#:[id number] Blood Product 310 Rc As-1 Unit 310 [id number] Output: Drainage 30 60 60 HARRIET Drain #1 RUQ ( 20 20 20 Dudodenal) HARRIET Drain #2 RUQ (Pelvic) 10 40 40 Urine 710 1135 600 Other: Voiding Method Indwelling Catheter Indwelling Catheter Indwelling Catheter # Bowel Movements 1 1 3 - Exam Patient is awake, comfortable, no acute distress NG tube in place Examination of the heart S1 and S2 Examination of the lungs bilateral breath sounds are heard Abdomen is soft nontender Examination lower extremity shows no evidence of edema [employer] exam shows patient is moving all 4 extremities. - Labs CBC & Chem 7: 06/20/23 09:59 06/20/23 05:26 Labs: Abnormal Lab Results - Last 24 Hours (Table) 06/19/23 06/19/23 06/19/23 Range/Units 12:21 14:23 21:00 WBC 11.1 H (3.8-10.6) k/uL RBC 2.22 L 2.45 L (3.80-5.40) m/uL Hgb 6.5 L* 7.3 L (11.4-16.0) gm/dL Hct 19.9 L* 22.5 L (34.0-46.0) % RDW 17.1 H 16.5 H (11.5-15.5) % Chloride (98-107) mmol/L Carbon Dioxide (22-30) mmol/L Glucose (74-99) mg/dL Calcium (8.4-10.2) mg/dL Crossmatch See Detail 06/20/23 06/20/23 06/20/23 Range/Units 05:26 05:26 09:59 WBC (3.8-10.6) k/uL RBC 2.42 L 2.40 L (3.80-5.40) m/uL Hgb 7.1 L 7.1 L (11.4-16.0) gm/dL Hct 22.1 L 22.0 L (34.0-46.0) % RDW 17.0 H 16.8 H (11.5-15.5) % Chloride 118 H (98-107) mmol/L Carbon Dioxide 19 L (22-30) mmol/L Glucose 71 L (74-99) mg/dL Calcium 7.6 L (8.4-10.2) mg/dL Crossmatch Microbiology - Last 24 Hours (Table) 06/18/23 16:38 Blood Culture - Preliminary Blood 06/16/23 06:04 Blood Culture Gram Stain - Final Blood Blood Culture - Final Staph hominis sub sp. hominis Assessment and Plan Assessment: 1. Acute kidney injury, ATN secondary to hypotension and severe anemia as well as volume depletion. Currently improved. UA is benign. 2. History of polysubstance abuse with current drug screen positive for opiates and oxycodone benzos and marijuana 3. Anemia with history of black stools. Status post packed RBCs. Ongoing GI bleed 4. Hypokalemia associated with decreased oral intake and bicarb drip 5. GI bleed with perforated duodenal ulcer, status post explorative laparotomy, lysis of adhesions and peritoneal lavage and placement of drain around the duodenal ulcer on 06/17/2023 6. Metabolic acidosis secondary to acute kidney injury, status post bicarb drip Plan: Continue with IV fluids Continue IV iron and continue to monitor for need for packed RBCs transfusion. May need to restart bicarb drip depending on labs tomorrow.
[2023-06-20 11:54] LABS: ALT 17 U/L (4-34); AST 19 U/L (14-36); African American GFR (CKD) >90 (>60 ml/min/1.73 sqM); Albumin 1.8 g/dL (3.5-5.0); Alkaline Phosphatase 75 U/L (38-126); Anion Gap 7 mmol/L; Blood Urea Nitrogen 8 mg/dL (7-17); Calcium 7.6 mg/dL (8.4-10.2); Carbon Dioxide 19 mmol/L (22-30); Chloride 117 mmol/L (98-107); Glucose 80 mg/dL (74-99); Magnesium 1.7 mg/dL (1.6-2.3); Non-African American GFR(CKD) >90 (>60 ml/min/1.73 sqM); Phosphorus 3.8 mg/dL (2.5-4.5); Potassium 3.9 mmol/L (3.5-5.1); Sodium 143 mmol/L (137-145); Total Bilirubin 0.3 mg/dL (0.2-1.3); Total Protein 3.8 g/dL (6.3-8.2)
[2023-06-20] MEDS: INSULIN ASPART (NovoLOG) 100 UNIT/ML VIAL SQ SCH ×2 (12:15→17:38)
[2023-06-20] MEDS ORDERED: MAGNESIUM SULFATE-D5W PMX 1 GM in DEXTROSE/WATER 1 100ML.BAG IVPB ONE (12:55)
[2023-06-20 13:26] VITALS: BMI 28.7
[2023-06-20] MEDS ORDERED: MVI, ADULT NO.4 WITH VIT K 10 ML, TRACE (CONC-1ML/DOSE) 1 ML, CALCIUM GLUCONATE 1 GM, S... IV SCH ×7 (14:30)
--- NOTE | 2023-06-20 15:20 | P.PAINCN ---
History of Present Illness - Reason for Consult Consult date: 06/20/23 - History of Present Illness This is 47 years old female , status post exploratory laparoscopy done by Dr. Todd with repair of duodenal ulcer, patient currently complaining of generalized abdominal pain, she had a history of polysubstance abuse and history of chronic pain syndrome, and she was on pain medication as an outpatient OxyIR 5 mg every 6 hours, patient had history of polysubstance abuse and respiratory failure , and on admission patient diagnosed with acute kidney injury and depression and posttraumatic stress disorder, and anemia, currently patient on Dilaudid 2 mg IV every 3 hours when necessary, and patient reported that the current medication is helping to control her pain, on admission urine toxicology screening was positive for opioid, marijuana, and anxiety benzodiazepine , Past Medical History Past Medical History: Pneumonia, Respiratory Disorder Additional Past Medical History / Comment(s): Polysubstane abuse, history of drug overdose, history of ARDS requiring intubation and mechanical ventilation, history of severe rhabdomyolysis and LUIS MIGUEL (recovered), history of MSSA pneumonia and sepsis, history of metabolic encephalopathy (recovered), history of depression, suicidal thoughts, suicide attempts, obesity. 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 Year Discovered:: None MDRO Source:: nare Past Surgical History: No Surgical Hx Reported Additional Past Surgical History / Comment(s): breast biopsy (date unknown), trach placement and peg tube placement for ARDS Past Anesthesia/Blood Transfusion Reactions: No Reported Reaction Past Psychological History: Anxiety, Depression, PTSD Smoking Status: Current every day smoker Past Alcohol Use History: None Reported Past Drug Use History: None Reported - Past Family History Mother Family Medical History: No Reported History Medications and Allergies Home Medications Medication Instructions Recorded Confirmed Type Sertraline HCl [Zoloft] 200 mg PO DAILY 11/16/18 06/15/23 History busPIRone HCL [Buspar] 30 mg PO BID 01/21/20 06/15/23 History buPROPion XL [Wellbutrin XL] 150 mg PO TID 05/16/20 06/15/23 History Cholecalciferol [Vitamin D3 (25 150 mcg PO DAILY 06/03/23 06/15/23 History Mcg = 1000 Iu)] Ferrous Sulfate [Iron (65 MG 325 mg PO BID-W/MEALS #60 tab 06/06/23 06/15/23 Rx Elemental)] Metoprolol Tartrate [Lopressor] 12.5 mg PO BID #60 tab 06/06/23 06/15/23 Rx Nicotine 21Mg/24Hr Patch [Habitrol] 1 patch TRANSDERM DAILY #7 patch 06/06/23 06/15/23 Rx Omeprazole 20 mg PO BID #60 cap 06/06/23 06/15/23 Rx Ketorolac [Toradol] 10 mg PO Q6H PRN 06/15/23 06/15/23 History Ondansetron Odt [Zofran Odt] 4 mg PO Q8H PRN 06/15/23 06/15/23 History oxyCODONE HCL [OxyIR] 5 mg PO Q4H PRN 06/15/23 06/15/23 History Allergies Allergy/AdvReac Type Severity Reaction Status Date / Time Sulfa (Sulfonamide Allergy Rash/Hives Verified 06/15/23 13:41 Antibiotics) sulfamethoxazole Allergy Rash/Hives Verified 06/15/23 13:41 [From Bactrim] trimethoprim [From Bactrim] Allergy Rash/Hives Verified 06/15/23 13:41 Physical Exam Vitals: Vital Signs Temp Pulse Resp BP Pulse Ox 06/20/23 15:00 89 12 135/97 95 06/20/23 14:00 90 16 127/98 100 06/20/23 13:00 90 13 134/98 100 06/20/23 12:00 98.3 F 82 17 136/103 100 06/20/23 11:00 108 H 23 145/99 96 06/20/23 10:00 98 18 144/97 98 06/20/23 09:00 95 14 124/91 99 06/20/23 08:00 97.3 F L 88 17 133/95 98 06/20/23 07:00 87 15 121/89 97 06/20/23 06:00 90 16 132/96 100 06/20/23 05:00 88 17 108/86 98 06/20/23 04:00 98.9 F 81 18 120/82 97 06/20/23 03:00 80 15 117/84 98 06/20/23 02:00 89 17 117/90 97 06/20/23 01:00 93 13 122/94 97 06/20/23 00:00 98.1 F 88 20 117/86 97 06/19/23 23:00 84 16 115/76 98 06/19/23 22:00 89 15 132/94 98 06/19/23 21:00 93 19 129/96 100 06/19/23 20:00 97.8 F 96 20 123/90 95 06/19/23 19:00 97 18 131/92 97 06/19/23 18:53 98.8 F 96 21 131/92 97 06/19/23 18:00 98 17 124/102 99 06/19/23 17:00 141/107 06/19/23 16:39 96 18 98 06/19/23 16:19 98.6 F 89 16 134/101 99 06/19/23 16:14 98.7 F 94 18 134/73 99 06/19/23 16:00 98.7 F 98 20 121/97 97 Intake and Output 06/20/23 06/20/23 06/20/23 06:59 14:59 22:59 Intake Total 1200 800 75 Output Total 795 1015 110 Balance 405 -305 -73 Intake: IV 1200 600 75 ACETAMINOPHEN IV (For NPO 100 ) 1,000 mg In Empty Bag 1 bag @ 400 mls/hr IVPB Q6HR [facility] Rx#:[id number] Ampicillin-Sulbactam 3 gm 100 In Sodium Chloride 0.9% 100 ml @ 200 mls/hr IVPB Q6HR [facility] Rx#:[id number] D5.45 600 600 75 Potassium Chloride 10 meq 400 In Water For Injection 1 100ml.bag @ 100 mls/hr IVPB Q1HR [facility] Rx#: [id number] Intake, IV Titration 200 Amount Fluconazole in NaCl,Iso- 100 Osm 200 mg In Saline 1 100ml.bag @ 100 mls/hr IVPB DAILY [facility] Rx#: [id number] Sodium Ferric Gluconat- 100 Sucrose 125 mg In Sodium Chloride 0.9% 100 ml @ 100 mls/hr IVPB DAILY [facility] Rx#:[id number] Output: Drainage 60 100 HARRIET Drain #1 RUQ ( 20 40 Dudodenal) HARRIET Drain #2 RUQ (Pelvic) 40 60 Urine 735 915 110 Other: Voiding Method Indwelling Catheter Indwelling Catheter # Bowel Movements 1 1 Weight 83.2 kg 83.2 kg Physical Examinations : -Constitutiona : Cooperative , not in acute distress . -HEENT : nech : supple , no Lymphadenopathy , normal thyroid size . : eyes : no ptosis , no icterus, no photophobia . - neurologic : Cranial nerve II to XII intact , no focal neurological deffecit . -psychatric : alert , oriented X 3 , appropriate affect , in tact judgment and insight . -Lymphatic : no Lymphadenopathy . - musculoskeltal : . Lumber spine moter stegnth lower extremities ,thigh and legs 5/5 Right side , 5/5 Left side -Abdomen= soft, mildly tender, bowel sound POSITIVE, patient had GP drain in the abdominal area Results CBC & Chem 7: 06/20/23 09:59 06/20/23 11:20 Labs: Abnormal Lab Results - Last 24 Hours (Table) 06/19/23 06/19/23 06/20/23 Range/Units 14:23 21:00 05:26 RBC 2.45 L 2.42 L (3.80-5.40) m/uL Hgb 7.3 L 7.1 L (11.4-16.0) gm/dL Hct 22.5 L 22.1 L (34.0-46.0) % RDW 16.5 H 17.0 H (11.5-15.5) % Chloride (98-107) mmol/L Carbon Dioxide (22-30) mmol/L Glucose (74-99) mg/dL Calcium (8.4-10.2) mg/dL Total Protein (6.3-8.2) g/dL Albumin (3.5-5.0) g/dL Crossmatch See Detail 06/20/23 06/20/23 06/20/23 Range/Units 05:26 09:59 11:20 RBC 2.40 L (3.80-5.40) m/uL Hgb 7.1 L (11.4-16.0) gm/dL Hct 22.0 L (34.0-46.0) % RDW 16.8 H (11.5-15.5) % Chloride 118 H 117 H (98-107) mmol/L Carbon Dioxide 19 L 19 L (22-30) mmol/L Glucose 71 L (74-99) mg/dL Calcium 7.6 L 7.6 L (8.4-10.2) mg/dL Total Protein 3.8 L (6.3-8.2) g/dL Albumin 1.8 L (3.5-5.0) g/dL Crossmatch Microbiology - Last 24 Hours (Table) 06/18/23 16:38 Blood Culture - Preliminary Blood 06/16/23 06:04 Blood Culture Gram Stain - Final Blood Blood Culture - Final Staph hominis sub sp. hominis Assessment and Plan Assessment: Assessment and plan=1-acute abdominal pain. Status post exploratory laparos copy 2-history of chronic pain syndrome patient was on OxyIR 5 mg every 6 hours as an outpatient(management of chronic back pain ). She is still nothing by mouth and she is currently on Dilaudid 2 mg IV every 6 hours when necessary, he reported that the current medication helping her to control her pain History of polysubstance abuse( opioid, marijuana, oxycodone and benzodiazepines) Recommend start patient on Duragesic patch 12 g every 72 hours. Patient need psych~/addictions consultation for polysubstance abuse treatement Time with Patient: Less than 30 PQRS Measure Charge Sheet - Pain Location Generalized Non-Pharmacological Interventions: Darkened Room, Distraction, Emotional/Spiritual Support, Environmental Control, Position/Reposition, Reduce Environmental Stimuli, Relaxation Technique Pharmacological Interventions: PRN Medication None Pharmacological Interventions: PRN Medication PQRS Narrative: Smoking Status Current every day smoker Blood Pressure [Right Arm] 131/80 Blood Pressure 135/97 Pain Intensity [None] 10 Pain Intensity [Generalized] 8 Pain Intensity 5 Pain Scale Used Numeric (1 - 10) Scale Used Numeric (1 - 10) Home Medications: Ambulatory Orders Sertraline HCl [Zoloft] 200 mg PO DAILY 11/16/18 busPIRone HCL [Buspar] 30 mg PO BID 01/21/20 buPROPion XL [Wellbutrin XL] 150 mg PO TID 05/16/20 Cholecalciferol [Vitamin D3 (25 Mcg = 1000 Iu)] 150 mcg PO DAILY 06/03/23 Ferrous Sulfate [Iron (65 MG Elemental)] 325 mg PO BID-W/MEALS #60 tab 06/06/23 Metoprolol Tartrate [Lopressor] 12.5 mg PO BID #60 tab 06/06/23 Nicotine 21Mg/24Hr Patch [Habitrol] 1 patch TRANSDERM DAILY #7 patch 06/06/23 Omeprazole 20 mg PO BID #60 cap 06/06/23 Ketorolac [Toradol] 10 mg PO Q6H PRN 06/15/23 Ondansetron Odt [Zofran Odt] 4 mg PO Q8H PRN 06/15/23 oxyCODONE HCL [OxyIR] 5 mg PO Q4H PRN 06/15/23
--- NOTE | 2023-06-20 16:57 | P.PN ---
Subjective Progress Note Date: 06/19/23 Principal diagnosis: Reason for follow-up with perforated peptic ulcer disease and leukocytosis Patient is a 47-year-old female with a past medical history significant for polysubstance abuse history of drug overdose pneumonia patient was brought into the ER by her mother for evaluation of intermittent confusion patient noticed to have a elevated white count that has prompted this infectious disease consultation further workup was done and the patient did have a CT of abdominal pelvis completed 06/16/2023 that was reported with possible perforation of the peptic ulcer disease, Patient is s/p expiratory laparotomy with lysis of adhesion for perforated duodenal ulcer completed by general surgery on 06/17/2023. On today's evaluation that is 06/19/2023 the patient remains to be afebrile patient is currently on her 2 L nasal cannula oxygen denies any chest pain shortness of breath or cough; some abdominal pain nausea but no vomiting and no new symptoms. Patient did have white count of 10.1, creatinine 0.83 Objective - Vital Signs Vital signs: Vital Signs Temp 94.6 F L 06/19/23 09:00 Pulse 100 06/19/23 09:00 Resp 17 06/19/23 09:00 BP 132/99 06/19/23 09:00 Pulse Ox 98 06/19/23 09:00 FiO2 50 06/18/23 08:00 Intake & Output 06/18/23 06/19/23 06/19/23 18:59 06:59 18:59 Intake Total 2328.271 1125 75 Output Total 1250 875 125 Balance 1078.271 250 -50 Weight 81.4 kg 81.4 kg Intake: IV 450 1125 75 ACETAMINOPHEN IV (For NPO 200 100 ) 1,000 mg In Empty Bag 1 bag @ 400 mls/hr IVPB Q6HR [facility] Rx#:[id number] Ampicillin-Sulbactam 3 gm 100 In Sodium Chloride 0.9% 100 ml @ 200 mls/hr IVPB Q6HR [facility] Rx#:[id number] Dextrose 5% in Water 1, 150 000 ml @ 75 mls/hr IV . [id number] ONE with Sodium Bicarb (1 Meq/ml) 150 ml Rx#:[id number] Dextrose 5% in Water 1, 825 75 000 ml @ 75 mls/hr IV . [id number] [facility] with Sodium Bicarb (1 Meq/ml) 150 ml Rx#:[id number] Fluconazole in NaCl,Iso- 100 Osm 200 mg In Saline 1 100ml.bag @ 100 mls/hr IVPB DAILY [facility] Rx#: [id number] Potassium Chloride 10 meq 100 In Water For Injection 1 100ml.bag @ 100 mls/hr IVPB Q1HR [facility] Rx#: [id number] Intake, IV Titration 1878.271 Amount Ampicillin-Sulbactam 3 gm 100 In Sodium Chloride 0.9% 100 ml @ 200 mls/hr IVPB Q6HR [facility] Rx#:[id number] Dextrose 5% in Water 1, 75 000 ml @ 75 mls/hr IV . [id number] [facility] with Sodium Bicarb (1 Meq/ml) 150 ml Rx#:[id number] Dextrose 5%-0.45% NaCl 1, 750 000 ml @ 75 mls/hr IV . [id number] [facility] Rx#:[id number] Magnesium Sulfate-D5w Pmx 100 1 gm In Dextrose/Water 1 100ml.bag @ 100 mls/hr IVPB ONCE ONE Rx#: [id number] Magnesium Sulfate-D5w Pmx 200 1 gm In Dextrose/Water 1 100ml.bag @ 100 mls/hr IVPB Q1H [facility] Rx#: [id number] Potassium Chloride 10 meq 200 In Water For Injection 1 100ml.bag @ 100 mls/hr IVPB Q1H [facility] Rx#: [id number] Potassium Chloride 10 meq 200 In Water For Injection 1 100ml.bag @ 100 mls/hr IVPB Q1H [facility] Rx#: [id number] Potassium Chloride 20 meq 100 In Water For Injection 1 100ml.bag @ 50 mls/hr IVPB Q2H [facility] Rx#: [id number] Sodium Ferric Gluconat- 100 Sucrose 125 mg In Sodium Chloride 0.9% 100 ml @ 100 mls/hr IVPB DAILY [facility] Rx#:[id number] propofoL 1,000 mg In 53.271 Empty Bag 1 bag @ 15 MCG/ KG/MIN 6.696 mls/hr IV . [id number] [facility] Rx#:[id number] Output: Gastric Drainage 250 Drainage 290 50 HARRIET Drain #1 RUQ ( 85 20 Dudodenal) HARRIET Drain #2 RUQ (Pelvic) 205 30 Urine 710 825 125 Other: Voiding Method Indwelling Catheter Indwelling Catheter # Bowel Movements 1 1 - Exam GENERAL DESCRIPTION: Middle-age lying in bed in no distress RESPIRATORY SYSTEM: Unlabored breathing , decreased breath sounds at bases HEART: S1 S2 regular rate and rhythm , ABDOMEN: Soft , mild epigastric tenderness EXTREMITIES: No edema feet - Labs CBC & Chem 7: 06/20/23 09:59 06/20/23 11:20 Labs: Abnormal Lab Results - Last 24 Hours (Table) 06/18/23 06/18/23 06/18/23 Range/Units 07:15 11:59 14:05 WBC 11.4 H (3.8-10.6) k/uL RBC 2.60 L (3.80-5.40) m/uL Hgb 7.8 L (11.4-16.0) gm/dL Hct 22.9 L (34.0-46.0) % RDW 17.0 H (11.5-15.5) % Neutrophils # 8.1 H (1.3-7.7) k/uL Chloride (98-107) mmol/L Carbon Dioxide (22-30) mmol/L POC Glucose (mg/dL) 143 H (70-110) mg/dL Calcium (8.4-10.2) mg/dL Creatine Kinase 150 H (30-135) U/L 06/19/23 06/19/23 Range/Units 03:29 03:29 WBC 12.1 H (3.8-10.6) k/uL RBC 2.57 L (3.80-5.40) m/uL Hgb 7.4 L (11.4-16.0) gm/dL Hct 22.4 L (34.0-46.0) % RDW 17.1 H (11.5-15.5) % Neutrophils # 8.2 H (1.3-7.7) k/uL Chloride 114 H (98-107) mmol/L Carbon Dioxide 19 L (22-30) mmol/L POC Glucose (mg/dL) (70-110) mg/dL Calcium 7.6 L (8.4-10.2) mg/dL Creatine Kinase (30-135) U/L Microbiology - Last 24 Hours (Table) 06/16/23 06:04 Blood Culture Gram Stain - Final Blood Blood Culture - Final Staph hominis sub sp. hominis Assessment and Plan (1) Leukocytosis Current Visit: Yes Status: Acute Code(s): D72.829 - ELEVATED WHITE BLOOD CELL COUNT, UNSPECIFIED SNOMED Code(s): 843045160 (2) Perforated peptic ulcer Current Visit: Yes Status: Acute Code(s): K27.5 - CHRONIC OR UNSP PEPTIC ULCER, SITE UNSP, WITH PERFORATION SNOMED Code(s): 85394790 (3) Peritonitis Current Visit: Yes Status: Acute Code(s): K65.9 - PERITONITIS, UNSPECIFIED SNOMED Code(s): 29406465 (4) Allergy to sulfa drugs Current Visit: Yes Status: Acute Code(s): Z88.2 - ALLERGY STATUS TO SULFONAMIDES SNOMED Code(s): 80023420 Plan: 1patient presented hospital with intermittent confusion and mental status changes patient was noticed to have elevated white count also anemia initial workup was negative with a CT abdominal pelvis showing evidence of perforated peptic ulcer disease 2General surgery has evaluated the patient and the patient is status post lysis of adhesions and peritoneal lavage completed by general surgery on 06/17/2023, no OR cultures 3-patient to continue with Unasyn and Diflucan and will monitor clinical course closely 4positive blood culture with coagulase-negative staph likely contamination , Blood culture has been repeated which are currently pending no need for vancomycin Dictation was produced using [employer] dictation software. please excuse any grammatical, word or spelling errors. Time with Patient: Less than 30
--- NOTE | 2023-06-20 16:58 | P.PN ---
Subjective Progress Note Date: 06/20/23 Principal diagnosis: Reason for follow-up with perforated peptic ulcer disease and leukocytosis Patient is a 47-year-old female with a past medical history significant for polysubstance abuse history of drug overdose pneumonia patient was brought into the ER by her mother for evaluation of intermittent confusion patient noticed to have a elevated white count that has prompted this infectious disease consultation further workup was done and the patient did have a CT of abdominal pelvis completed 06/16/2023 that was reported with possible perforation of the peptic ulcer disease, Patient is s/p expiratory laparotomy with lysis of adhesion for perforated duodenal ulcer completed by general surgery on 06/17/2023. On today's evaluation that is06/20/2023 the patient continues to be afebrile patient is breathing comfortably on 2 L nasal cannula oxygen patient denies having any chest pain shortness of breath or cough she is asking for some liquid no vomiting. Patient did have white count of 8.9, creatinine 0.73 Objective - Vital Signs Vital signs: Vital Signs Temp 98.3 F 06/20/23 12:00 Pulse 82 06/20/23 12:00 Resp 17 06/20/23 12:00 BP 136/103 06/20/23 12:00 Pulse Ox 100 06/20/23 12:00 FiO2 50 06/18/23 08:00 Intake & Output 06/19/23 06/20/23 06/20/23 18:59 06:59 18:59 Intake Total 1435 1480 650 Output Total 740 1195 760 Balance 695 285 -110 Weight 81.4 kg 83.2 kg Intake: IV 1125 1480 450 ACETAMINOPHEN IV (For NPO 200 100 ) 1,000 mg In Empty Bag 1 bag @ 400 mls/hr IVPB Q6HR [facility] Rx#:[id number] Ampicillin-Sulbactam 3 gm 200 100 In Sodium Chloride 0.9% 100 ml @ 200 mls/hr IVPB Q6HR [facility] Rx#:[id number] D5.45 550 880 450 Dextrose 5% in Water 1, 75 000 ml @ 75 mls/hr IV . [id number] [facility] with Sodium Bicarb (1 Meq/ml) 150 ml Rx#:[id number] Fluconazole in NaCl,Iso- 100 Osm 200 mg In Saline 1 100ml.bag @ 100 mls/hr IVPB DAILY [facility] Rx#: [id number] Potassium Chloride 10 meq 400 In Water For Injection 1 100ml.bag @ 100 mls/hr IVPB Q1HR [facility] Rx#: [id number] Intake, IV Titration 200 Amount Fluconazole in NaCl,Iso- 100 Osm 200 mg In Saline 1 100ml.bag @ 100 mls/hr IVPB DAILY [facility] Rx#: [id number] Sodium Ferric Gluconat- 100 Sucrose 125 mg In Sodium Chloride 0.9% 100 ml @ 100 mls/hr IVPB DAILY [facility] Rx#:[id number] Blood Product 310 Rc As-1 Unit 310 [id number] Output: Drainage 30 60 60 HARRIET Drain #1 RUQ ( 20 20 20 Dudodenal) HARRIET Drain #2 RUQ (Pelvic) 10 40 40 Urine 710 1135 700 Other: Voiding Method Indwelling Catheter Indwelling Catheter Indwelling Catheter # Bowel Movements 1 1 1 - Exam GENERAL DESCRIPTION: Middle-age lying in bed in no distress RESPIRATORY SYSTEM: Unlabored breathing , decreased breath sounds at bases HEART: S1 S2 regular rate and rhythm , ABDOMEN: Soft , mild epigastric tenderness EXTREMITIES: No edema feet - Labs CBC & Chem 7: 06/20/23 09:59 06/20/23 11:20 Labs: Abnormal Lab Results - Last 24 Hours (Table) 06/19/23 06/19/23 06/19/23 Range/Units 12:21 14:23 21:00 WBC 11.1 H (3.8-10.6) k/uL RBC 2.22 L 2.45 L (3.80-5.40) m/uL Hgb 6.5 L* 7.3 L (11.4-16.0) gm/dL Hct 19.9 L* 22.5 L (34.0-46.0) % RDW 17.1 H 16.5 H (11.5-15.5) % Chloride (98-107) mmol/L Carbon Dioxide (22-30) mmol/L Glucose (74-99) mg/dL Calcium (8.4-10.2) mg/dL Total Protein (6.3-8.2) g/dL Albumin (3.5-5.0) g/dL Crossmatch See Detail 06/20/23 06/20/23 06/20/23 Range/Units 05:26 05:26 09:59 WBC (3.8-10.6) k/uL RBC 2.42 L 2.40 L (3.80-5.40) m/uL Hgb 7.1 L 7.1 L (11.4-16.0) gm/dL Hct 22.1 L 22.0 L (34.0-46.0) % RDW 17.0 H 16.8 H (11.5-15.5) % Chloride 118 H (98-107) mmol/L Carbon Dioxide 19 L (22-30) mmol/L Glucose 71 L (74-99) mg/dL Calcium 7.6 L (8.4-10.2) mg/dL Total Protein (6.3-8.2) g/dL Albumin (3.5-5.0) g/dL Crossmatch 06/20/23 Range/Units 11:20 WBC (3.8-10.6) k/uL RBC (3.80-5.40) m/uL Hgb (11.4-16.0) gm/dL Hct (34.0-46.0) % RDW (11.5-15.5) % Chloride 117 H (98-107) mmol/L Carbon Dioxide 19 L (22-30) mmol/L Glucose (74-99) mg/dL Calcium 7.6 L (8.4-10.2) mg/dL Total Protein 3.8 L (6.3-8.2) g/dL Albumin 1.8 L (3.5-5.0) g/dL Crossmatch Microbiology - Last 24 Hours (Table) 06/18/23 16:38 Blood Culture - Preliminary Blood 06/16/23 06:04 Blood Culture Gram Stain - Final Blood Blood Culture - Final Staph hominis sub sp. hominis Assessment and Plan (1) Leukocytosis Current Visit: Yes Status: Acute Code(s): D72.829 - ELEVATED WHITE BLOOD CELL COUNT, UNSPECIFIED SNOMED Code(s): 902570142 (2) Perforated peptic ulcer Current Visit: Yes Status: Acute Code(s): K27.5 - CHRONIC OR UNSP PEPTIC ULCER, SITE UNSP, WITH PERFORATION SNOMED Code(s): 53450964 (3) Peritonitis Current Visit: Yes Status: Acute Code(s): K65.9 - PERITONITIS, UNSPECIFIED SNOMED Code(s): 96567515 (4) Allergy to sulfa drugs Current Visit: Yes Status: Acute Code(s): Z88.2 - ALLERGY STATUS TO SULFONAMIDES SNOMED Code(s): 09972426 Plan: 1patient presented hospital with intermittent confusion and mental status changes patient was noticed to have elevated white count also anemia initial workup was negative with a CT abdominal pelvis showing evidence of perforated peptic ulcer disease 2General surgery has evaluated the patient and the patient is status post lysis of adhesions and peritoneal lavage completed by general surgery on 06/17/2023, no OR cultures 3-positive blood culture with coagulase-negative staph likely contamination , Blood culture has been repeated which are So far negative no need for vancomycin 4-patient to continue with Unasyn and Diflucan and will monitor clinical course closely Dictation was produced using [employer] dictation software. please excuse any grammatical, word or spelling errors. Time with Patient: Less than 30
[2023-06-20 17:34] LABS: Glucose,Whole Blood 104 mg/dL (70-110)
--- NOTE | 2023-06-20 18:14 | P.PN ---
Subjective ymes are normal urine has been negative urine drug screen was positive for benzo and cocaine patient noticed to have a wound to the dorsum aspect of the right foot for the patient did have a chest x-ray soft tissue swelling edema of the foot without evidence for fracture or bony erosion chest x-ray cardiomegaly mild pulm vascular congestion infectious disease was consulted for right foot wound most information has been obtained from review the chart as the patient remains to be lethargic and did not provide any history as far as right foot wound and the kind of treatment he is receiving for it ymes are normal urine has been negative urine drug screen was positive for benzo and cocaine patient noticed to have a wound to the dorsum aspect of the right foot for the patient did have a chest x-ray soft tissue swelling edema of the foot without evidence for fracture or bony erosion chest x-ray cardiomegaly mild pulm vascular congestion infectious disease was consulted for right foot wound most information has been obtained from review the chart as the patient remains to be lethargic and did not provide any history as far as right foot wound and the kind of treatment he is receiving for it -- CT of the abdomen and pelvis completed reveals upper abdomen inflammation likely secondary to perforated gastric ulcer; circumferential wall thickening of the gallbladder with hyperemia likely secondary to 1 -- Stat surgical consult is done -- Hemoglobin is down to 5.6; 2 units of packed RBCs are ordered -- Patient is being transferred to ICU 06/17/2023 Patient is seen and evaluated in room at bedside; patient had CT of the abdomen and pelvis completed yesterday which revealed perforated gastric ulcer; general surgery was consulted and patient was transferred to ICU Vital signs are reviewed and stable with temperature of 97.9, pulse 67, respiration 13 and blood pressure 147/94 White count is 8.7, hemoglobin 8.2, hematocrit 24.8, and platelet count 326,000. Sodium 141, potassium 3.6, chlorides 115, CO2 16, BUN 14, and creatinine 0.78. Albumin is 2.1. -- Patient has received a total of 4 units of packed RBCs; hemoglobin is stable at 8.2 General surgery and with the plans to take the patient to OR this afternoon; patient has been cleared by cardiology 06/18/2023 Patient was intubated in the morning, M she was extubated Currently on BiPAP. Mildly tachypneic. She remains on broad-spectrum antibiotic of Unasyn and fluconazole for suspected peritonitis from perforated peptic ulcer. Status post exploratory laparotomy and lysis of adhesions with peritoneal lavage Blood culture is contamination present. Currently on gentle hydration of D5 half normal saline at 75 mL/h 06/19/2023 Patient status post extubation and currently on 3 L oxygen via nasal cannula monitored tachypneic and tachycardic, earlier was on BiPAP and she tolerates this well as well. Her hemoglobin dropped today to 6.5 and she's getting IV iron. She is status post multiple blood transfusion. WBCs 11,000. Extremities on Unasyn and fluconazole. She developed agitation at times requiring Haldol when necessary for her enceph alopathic Patient is still nothing by mouth and found to be started on TPN today 06/20/2023 Patient is awake but in distress due to her abdominal pain. She still nothing by mouth with no bowel movement. Today his fentanyl patch and Dilaudid as provided for her for better better control TPN is running, Hdz catheter in place She remains on Unasyn and fluconazole No fluid. Hemoglobin improved 6.5 up to 7.1 after blood transfusion Objective - Vital Signs Vital signs: Vital Signs Temp 98.3 F 06/20/23 12:00 Pulse 90 06/20/23 13:00 Resp 13 06/20/23 13:00 BP 134/98 06/20/23 13:00 Pulse Ox 100 06/20/23 13:00 FiO2 50 06/18/23 08:00 Intake & Output 06/19/23 06/20/23 06/20/23 18:59 06:59 18:59 Intake Total 1435 1480 725 Output Total 740 1195 875 Balance 695 285 -150 Weight 81.4 kg 83.2 kg 83.2 kg Intake: IV 1125 1480 525 ACETAMINOPHEN IV (For NPO 200 100 ) 1,000 mg In Empty Bag 1 bag @ 400 mls/hr IVPB Q6HR [facility] Rx#:[id number] Ampicillin-Sulbactam 3 gm 200 100 In Sodium Chloride 0.9% 100 ml @ 200 mls/hr IVPB Q6HR [facility] Rx#:[id number] D5.45 550 880 525 Dextrose 5% in Water 1, 75 000 ml @ 75 mls/hr IV . [id number] [facility] with Sodium Bicarb (1 Meq/ml) 150 ml Rx#:[id number] Fluconazole in NaCl,Iso- 100 Osm 200 mg In Saline 1 100ml.bag @ 100 mls/hr IVPB DAILY [facility] Rx#: [id number] Potassium Chloride 10 meq 400 In Water For Injection 1 100ml.bag @ 100 mls/hr IVPB Q1HR [facility] Rx#: [id number] Intake, IV Titration 200 Amount Fluconazole in NaCl,Iso- 100 Osm 200 mg In Saline 1 100ml.bag @ 100 mls/hr IVPB DAILY [facility] Rx#: [id number] Sodium Ferric Gluconat- 100 Sucrose 125 mg In Sodium Chloride 0.9% 100 ml @ 100 mls/hr IVPB DAILY [facility] Rx#:[id number] Blood Product 310 Rc As-1 Unit 310 [id number] Output: Drainage 30 60 60 HARRIET Drain #1 RUQ ( 20 20 20 Dudodenal) HARRIET Drain #2 RUQ (Pelvic) 10 40 40 Urine 710 1135 815 Other: Voiding Method Indwelling Catheter Indwelling Catheter Indwelling Catheter # Bowel Movements 1 1 1 - Exam -GENERAL: The patient is intubated HEENT: Pupils are round and equally reacting to light. EOMI. No scleral icterus. No conjunctival pallor. Normocephalic, atraumatic. No pharyngeal erythema. No thyromegaly. CARDIOVASCULAR: S1 and S2 present. No murmurs, rubs, or gallops. PULMONARY: Chest is clear to auscultation, no wheezing , no crackles. -ABDOMEN: Soft, nontender, nondistended, normoactive bowel sounds. No palpable organomegaly. Surgical wound with a dressing in place MUSCULOSKELETAL: No joint swelling or deformity. EXTREMITIES: No cyanosis, clubbing, or pedal edema. NEUROLOGICAL: Gross neurological examination did not reveal any focal deficits. SKIN: No rashes. no petechiae. - Labs CBC & Chem 7: 06/20/23 09:59 06/20/23 11:20 Labs: Abnormal Lab Results - Last 24 Hours (Table) 06/19/23 06/19/23 06/20/23 Range/Units 14:23 21:00 05:26 RBC 2.45 L 2.42 L (3.80-5.40) m/uL Hgb 7.3 L 7.1 L (11.4-16.0) gm/dL Hct 22.5 L 22.1 L (34.0-46.0) % RDW 16.5 H 17.0 H (11.5-15.5) % Chloride (98-107) mmol/L Carbon Dioxide (22-30) mmol/L Glucose (74-99) mg/dL Calcium (8.4-10.2) mg/dL Total Protein (6.3-8.2) g/dL Albumin (3.5-5.0) g/dL Crossmatch See Detail 06/20/23 06/20/23 06/20/23 Range/Units 05:26 09:59 11:20 RBC 2.40 L (3.80-5.40) m/uL Hgb 7.1 L (11.4-16.0) gm/dL Hct 22.0 L (34.0-46.0) % RDW 16.8 H (11.5-15.5) % Chloride 118 H 117 H (98-107) mmol/L Carbon Dioxide 19 L 19 L (22-30) mmol/L Glucose 71 L (74-99) mg/dL Calcium 7.6 L 7.6 L (8.4-10.2) mg/dL Total Protein 3.8 L (6.3-8.2) g/dL Albumin 1.8 L (3.5-5.0) g/dL Crossmatch Microbiology - Last 24 Hours (Table) 06/18/23 16:38 Blood Culture - Preliminary Blood 06/16/23 06:04 Blood Culture Gram Stain - Final Blood Blood Culture - Final Staph hominis sub sp. hominis Assessment and Plan Assessment: #. Acute perforated due to ulcerative status post exploratory laparotomy with lysis of adhesions and peritoneal lavage = With postop care, continue nothing by mouth - Plan to start TPN - General surgery on the case. Continue gentle hydration and antibiotic #. Altered mental status; likely multifactorial related to polysubstance abuse versus [place] I/dehydration - Improving #. Acute renal injury/dehydration - BUN/creatinine elevated at 47/2.29 -- We will start patient on IV fluid hydration form of normal saline at a rate of 100 mL an hour; monitor strict KATERINE's, daily weights, renal function and electrolytes - Avoid nephrotoxins and hypotension #. Severe anemia; patient received 2 units packed RBCs in ED; we will monitor H&H every 6 hours with plans to transfuse if hemoglobin is less than 7.0; stool occult blood on stool specimens; Protonix 40 mg IV every 12 hours -- Consult general surgery #. Electrolyte imbalance; supplemented in ED; monitor electrolytes closely and supplement as needed #. Polysubstance abuse; urine drug screen is positive for opiates, benzodiazepines and marijuana #. Hypertension; metoprolol 12.5 mg twice a day #. Depression/anxiety; patient takes Wellbutrin, Zoloft and BuSpar DVT prophylaxis; SCDs only CODE STATUS; full code
--- NOTE | 2023-06-20 22:00 | P.PN ---
Subjective Progress Note Date: 06/20/23 CHIEF COMPLAINT: Abdominal pain HISTORY OF PRESENT ILLNESS: The patient is a 47 year old female who presented with chronic perforated duodenal ulcer. She is status post exploratory laparotomy, gastric lavage, intraoperative EGD confirming duodenal ulcer is completely sealed. Reports improvement of her abdominal pain. Reports decreased bowel movements. Hemoglobin 7.1 stable. Sitter at bedside. She is on TPN. REVIEW OF ORGAN SYSTEMS: No fevers or chills. No shortness of breath. PHYSICAL EXAM: VITALS: Reviewed CONSTITUTIONAL: Well developed and in no acute distress. EYES: Conjuctivae without sclera icterus. Extraocular movements grossly intact. HEAD, EARS, NOSE, THROAT: Moist buccal mucosa. Head is atraumatic, normocephalic. Hears conversational speech. No nasal drainage. RESPIRATORY: Non-labored respirations and equal bilateral excursions. No gross wheezes. CARDIOVASCULAR: Palpable 2+ radial pulses. ABDOMEN: HARRIET serosanguineous. No peritonitis. Dressing intact. MUSCULOSKELETAL: No clubbing cyanosis or edema SKIN: Warm and well perfused with good skin turgor. NEUROLOGIC: Cranial nerves II through XII grossly intact. No focal or lateralizing signs. PSYCH: Flat affect. Alert and oriented to person, place and time. Displays appropriate insight. CLINCAL LABS: Reviewed. WBC normal. Hgb 7.1 ASSESSMENT: 1. Duodenal ulcer, recurrent 2. Localized pneumoperitoneum 3. Acute anemia 4. Acute kidney injury 5. Tobacco abuse 6. Hematemesis 7. Acute blood loss anemia PLAN: 1. May start ice chips and popsicles 2. Continue antibiotics 3. If patient continues to bleed, possible transfer to outside institution for GI intervention and interventional radiology discussed with patient and er registrar. Objective - Vital Signs Vital signs: Vital Signs Temp 98.6 F 06/20/23 16:00 Pulse 89 06/20/23 21:00 Resp 13 06/20/23 21:00 BP 131/84 06/20/23 21:00 Pulse Ox 96 06/20/23 21:00 FiO2 50 06/18/23 08:00 Intake & Output 06/20/23 06/20/23 06/21/23 06:59 18:59 06:59 Intake Total 1480 1390 210 Output Total 1195 1530 225 Balance 285 -140 -15 Weight 83.2 kg 83.2 kg Intake: IV 1480 1100 150 ACETAMINOPHEN IV (For NPO 100 100 ) 1,000 mg In Empty Bag 1 bag @ 400 mls/hr IVPB Q6HR [facility] Rx#:[id number] Ampicillin-Sulbactam 3 gm 100 100 In Sodium Chloride 0.9% 100 ml @ 200 mls/hr IVPB Q6HR [facility] Rx#:[id number] D5.45 880 900 150 Potassium Chloride 10 meq 400 In Water For Injection 1 100ml.bag @ 100 mls/hr IVPB Q1HR [facility] Rx#: [id number] Intake, IV Titration 290 60 Amount Fluconazole in NaCl,Iso- 100 Osm 200 mg In Saline 1 100ml.bag @ 100 mls/hr IVPB DAILY [facility] Rx#: [id number] Mvi, Adult No.4 with Vit 90 60 K 10 ml Trace (Conc-1Ml/ Dose) 1 ml Calcium Gluconate 1 gm Sodium Acetate 30 meq Magnesium Sulfate gm 0.5 gm Potassium Phosphate 15 mmol In Amino Acids 5 %/ Dextrose 20 % 1,000 ml @ 30 mls/hr IV .Q24H [facility] Rx #:[id number] Sodium Ferric Gluconat- 100 Sucrose 125 mg In Sodium Chloride 0.9% 100 ml @ 100 mls/hr IVPB DAILY [facility] Rx#:[id number] Output: Drainage 60 130 HARRIET Drain #1 RUQ ( 20 50 Dudodenal) HARRIET Drain #2 RUQ (Pelvic) 40 80 Urine 1135 1400 225 Other: Voiding Method Indwelling Catheter Indwelling Catheter # Bowel Movements 1 1 - Labs CBC & Chem 7: 06/21/23 05:06 06/21/23 05:06 Labs: Abnormal Lab Results - Last 24 Hours (Table) 06/20/23 06/20/23 06/20/23 Range/Units 05:26 05:26 09:59 RBC 2.42 L 2.40 L (3.80-5.40) m/uL Hgb 7.1 L 7.1 L (11.4-16.0) gm/dL Hct 22.1 L 22.0 L (34.0-46.0) % RDW 17.0 H 16.8 H (11.5-15.5) % Chloride 118 H (98-107) mmol/L Carbon Dioxide 19 L (22-30) mmol/L Glucose 71 L (74-99) mg/dL Calcium 7.6 L (8.4-10.2) mg/dL Total Protein (6.3-8.2) g/dL Albumin (3.5-5.0) g/dL Procalcitonin (0.02-0.09) ng/mL 06/20/23 06/20/23 Range/Units 09:59 11:20 RBC (3.80-5.40) m/uL Hgb (11.4-16.0) gm/dL Hct (34.0-46.0) % RDW (11.5-15.5) % Chloride 117 H (98-107) mmol/L Carbon Dioxide 19 L (22-30) mmol/L Glucose (74-99) mg/dL Calcium 7.6 L (8.4-10.2) mg/dL Total Protein 3.8 L (6.3-8.2) g/dL Albumin 1.8 L (3.5-5.0) g/dL Procalcitonin 0.21 H (0.02-0.09) ng/mL Microbiology - Last 24 Hours (Table) 06/18/23 16:38 Blood Culture - Preliminary Blood
--- NOTE | 2023-06-20 22:01 | PN ---
PROGRESS NOTE HISTORY OF PRESENT ILLNESS: Kristina is a 47-year-old lady with history of drug abuse, who was admitted to hospital with a perforated gastric ulcer and underwent surgery. We were consulted because of an abnormal EKG. An echocardiogram done yesterday shows normal left ventricular size and wall motion. This morning, the patient states that she does not have any chest pain or difficulty in breathing. Remains in sinus rhythm, stable hemodynamically. PHYSICAL EXAMINATION: Remains unchanged. LABORATORY DATA: Labs show a hemoglobin of 7.1, platelet count of 330. Potassium is 4.1, creatinine is 0.7. ASSESSMENT AND PLAN: Tachycardia, probably related to underlying multiple medical problems. I reviewed the echo findings. She has normal LV function and wall motion. I will switch her Lopressor to 25 mg p.o. b.i.d. whenever she is able to take oral medications. In the meantime, she will continue the IV Lopressor. JOSELIN / CALLIN: [id number] /
[2023-06-20] MEDS: HYDROmorphone 0.5 MG/0.5 ML SYRINGE IVP PRN (22:44)
[2023-06-21] MEDS: METOPROLOL TARTRATE 5 MG/5 ML VIAL IVP SCH ×3 (00:01→13:26)
[2023-06-21 01:06] LABS: Glucose,Whole Blood 109 mg/dL (70-110)
[2023-06-21] MEDS: INSULIN ASPART (NovoLOG) 100 UNIT/ML VIAL SQ SCH ×3 (01:08→13:15)
[2023-06-21] MEDS: HYDROmorphone 0.5 MG/0.5 ML SYRINGE IVP PRN ×4 (01:45→15:53)
[2023-06-21] MEDS: HALOPERIDOL LACTATE 5 MG/ML 1 ML VIAL IVP PRN ×2 (03:53→13:10)
[2023-06-21 05:36] LABS: Anisocytosis Slight; Basophils % (A) 0 %; Eosinophils # (A) 0.4 k/uL (0-0.7); Eosinophils % (A) 5 %; HCT 20.6 % (34.0-46.0); Hypochromasia Moderate; Lymphocytes % (A) 25 %; MCH 29.5 pg (25.0-35.0); MCHC 32.2 g/dL (31.0-37.0); MCV 91.7 fL (80.0-100.0); Mean Platelet Volume 8.5; Monocytes # (A) 0.3 k/uL (0-1.0); Monocytes % (A) 3 %; Neutrophils # (A) 5.3 k/uL (1.3-7.7); Neutrophils % (A) 66 %; Platelet Count 330 k/uL (150-450); Poikilocytosis Slight; RBC 2.25 m/uL (3.80-5.40); RDW 17.4 % (11.5-15.5); WBC 8.1 k/uL (3.8-10.6)
[2023-06-21 05:38] LABS: HGB 6.6 gm/dL (11.4-16.0)
[2023-06-21 05:41] LABS: Glucose,Whole Blood 117 mg/dL (70-110)
[2023-06-21 06:06] LABS: African American GFR (CKD) >90 (>60 ml/min/1.73 sqM); Anion Gap 4 mmol/L; Blood Urea Nitrogen 5 mg/dL (7-17); Calcium 7.5 mg/dL (8.4-10.2); Carbon Dioxide 21 mmol/L (22-30); Chloride 114 mmol/L (98-107); Glucose 94 mg/dL (74-99); Magnesium 1.7 mg/dL (1.6-2.3); Non-African American GFR(CKD) >90 (>60 ml/min/1.73 sqM); Phosphorus 3.7 mg/dL (2.5-4.5); Potassium 3.4 mmol/L (3.5-5.1); Sodium 139 mmol/L (137-145)
[2023-06-21] MEDS: AMPICILLIN-SULBACTAM 3 GM in SODIUM CHLORIDE 0.9% 100 ML IVPB SCH ×4 (06:07→13:16)
[2023-06-21] MEDS: DEXTROSE 5%-0.45% NACL 1,000 ML IV SCH (06:10)
[2023-06-21] MEDS ORDERED: MAGNESIUM SULFATE-D5W PMX 1 GM in DEXTROSE/WATER 1 100ML.BAG IVPB ONE (06:25)
[2023-06-21] MEDS: POTASSIUM CHLORIDE 20 MEQ in WATER FOR INJECTION 1 100ML.BAG IVPB SCH ×2 (06:34→08:48)
[2023-06-21] MEDS: LORazepam 2 MG/ML INJ IV PRN ×2 (07:04→13:48)
[2023-06-21] MEDS: ACETAMINOPHEN IV (For NPO) 1,000 MG in EMPTY BAG 1 BAG IVPB SCH ×3 (07:35→12:54)
[2023-06-21] MEDS: PANTOPRAZOLE 40 MG/10 ML VIAL IV SCH (08:57)
--- NOTE | 2023-06-21 09:43 | P.PN ---
Subjective Progress Note Date: 06/21/23 On today's evaluation of 06/18/2023, I'm seeing the patient for a follow-up. The patient is postop day #1 as the patient was found to have an acute on top of chronic perforated duodenal ulcer. She was experiencing hematemesis. The patient was taken to the operating room and the patient underwent an ex-with her laparotomy and lysis of adhesions over 1-1/2 hours, intraoperative EGD was done along with a gastric lavage with 500 mL of ice water saline, a HARRIET drain was placed anterior to the duodenal ulcer, peritoneal lavage was done with a total of 2 L and the wound was closed. Patient is currently still intubated on a mechanical ventilator. She is awake and alert and she was taken off sedation th morning. She was subsequently placed on a spontaneous breathing and currently she is on a pressure support of 5 and a PEEP of 5. She is able to generate tidal volume of 350-400 mL and the respiratory rate of 16. She is very much calm and comfortable while being on a spontaneous mode of respiration. In terms of hemodynamics, the patient is on no pressors. She is on IV fluids currently running at D5 W with 3 A of bicarb at 75 mL an hour. Her blood work from today shows a stable hemoglobin of 7.4, white cell count of 9.5 and a platelet count of 3 on 36. Sodium is at 139, BUN is at 8 with a creatinine of 0.6 and a potassium level of 3.6. Blood gases from this morning showed a pH of 7.34 with a pCO2 of 44 and pO2 of 102. The chest x-ray is showing adequate positioning of the orotracheal tube. There is also infiltrates mainly in the left upper lobe area and left retrocardiac area along with some atelectatic changes in lung bases bilaterally. The blood culture that was obtained earlier showed a coagulase-negative staph and the patient is currently on IV Unasyn and Diflucan. She is on Dilaudid for pain control. Her urine drug screen was positive for a combination of opiates, oxycodone, benzodiazepine and marijuana. No amphetamines were identified in the urine drug screen. Note that the patient originally presented to us on 06/15/2023 after being in the emergency room multiple occasions. During this current admission, she was confused and she had collapsed on the floor. She is known to have previous episodes of respiratory failure, rhabdomyolysis, depression, PTSD and substance abuse. On this morning's evaluation, she is following commands and answering questions appropriately. Her metabolic acidosis has recovered. Her pro calcitonin level was at 0.45. Her CPK has not been checked. On today's evaluation of 06/19/2023, the patient is postop day #2. The patient remains nothing by mouth. NG tube was removed. No signs of any bleeding and hemoglobin stable at 7.4. She remains nothing by mouth upon the request made by surgery and the patient will have a PICC line inserted for TPN. The plan is to keep nothing by mouth for the next 7 days and this is based on surgical recommendations. The patient has HARRIET drains in place, HARRIET drain #1 is anterior to the duodenum and is draining approximately 20 mL an HARRIET #2 drain is in the abdomen and this has drained serosanguineous material in the order of 100 mL since yesterday. Abdomen is soft. Surgical one-sided dry clean and intact. No nausea. No emesis. White cycles of 12.1 and the patient remains on a Diflucan. Diflucan. Renal function stable. BUN is at 30 with a creatinine of 0.8 and a sodium bicarb is at 19 and sodium level is at 141. She is afebrile. She is having episodes of agitation and delirium. She is known to have chronic anxiety maintain on a combination of Zoloft and BuSpar on outpatient basis. She also takes Wellbutrin. Note that she is unable to take any of her oral medication. She was given a dose of Haldol yesterday which helped her with her delirium. She seems to be more appropriate this morning. She was given Haldol 5 mg IV push 1. No nausea. No emesis. She remains on IV Protonix. She is currently on oxygen at 2 L nasal cannula. Using incentive spirometer. CPK was checked and the levels were not elevated. IV fluids are in the form of D5 half-normal saline at the rate of 55 mL an hour. On 06/20/2023, the patient is postop day #3. She remains nothing by mouth. NG tube was removed. The patient is a PICC line and TPN to is to be started today. Abdominal wound is dry and clean and the patient has 2 HARRIET drains, HARRIET drain #1 has put out 30 mL an HARRIET drain #2 has put out is over the past 24 hours. She is calm and comfortable. She is on oxygen at 2 L. She is, comfortable. She is on IV antibiotics with a combination of Unasyn and Diflucan. There was a single blood culture that showed staph hominis and a second blood culture was negative. I would suggest repeating another set of blood cultures to make sure there is ongoing bacteremia with staph. In terms of her blood work, the patient has a white cell count of 9, hemoglobin of 7.1 and a platelet count of 319. BUN is at 9 with a creatinine of 0.7 and a sodium level is at 144. IV fluids are normal form of D5 half-normal saline at the rate of 75 mL an hour. She was having some episodes of agitation and delirium. Note that she has chronic anxiety maintain on a combination of Wellbutrin and Zoloft and BuSpar outpatient basis. Based on an nothing by mouth status, the patient is unable to take postmedication and the patient is currently receiving Haldol on an as-needed basis. This morning, she is well rested. Hdz catheter still in place. Is using the incentive spirome ter. No other significant events overnight. She remains on IV Protonix. Note that the patient also has been having episodes of melanotic stool and she had 3 episodes this morning. Surgery will made aware of this. Hemoglobin is stable at 7.1. She received a unit of packed RBC on 06/19/2023 for a hemoglobin of 6.5. She did respond she came up to 7.3 and this morning she is down to 7.1. On today's evaluation of 06/21/2023, the patient is postoperative day #4. She remains nothing by mouth. She is receiving TPN for nutritional support. HARRIET drains are still in place. Unfortunately, the patient continued to have episodes of melanotic stool a total of 2 overnight. There was also drop in hemoglobin from 7.1 down to 6.6. She was given 1 unit of packed RBC and would awaiting follow-up hemoglobin. As mentioned, she didn't follow through the NG tube. No hematemesis at this point in time. No abdominal pain or abdominal distention. Remains on IV Protonix. There is obvious concern of ongoing upper GI bleed at this point in time. IV fluids are running at 75 mL an hour in the form of D5 half-normal saline. The white cell cause of 8.1. Platelet count is at 3:30. Sodiums of 139, BUN is at 5 with a creatinine of 0.7. Repeat blood cultures were sent and the results are still pending for now. There is a earlier blood culture from 06/16/2023 which showed staph hominis. Discussed the case with the general surgeon on the patient and her recommendation was to transfer this patient to a tertiary care center for another GI evaluation and control of an upper GI bleed. Hdz catheter remains in place stitches, comfortable. No significant education at this point in time. Objective - Vital Signs Vital signs: Vital Signs Temp 98 F 06/21/23 08:34 Pulse 79 06/21/23 08:34 Resp 20 06/21/23 08:34 BP 152/97 06/21/23 08:34 Pulse Ox 94 L 06/21/23 08:59 FiO2 50 06/18/23 08:00 Intake & Output 06/20/23 06/21/23 06/21/23 18:59 06:59 18:59 Intake Total 1390 1460 520 Output Total 1530 1560 435 Balance -140 -100 85 Weight 83.2 kg 83 kg Intake: IV 1100 1430 210 ACETAMINOPHEN IV (For NPO 100 100 ) 1,000 mg In Empty Bag 1 bag @ 400 mls/hr IVPB Q6HR [facility] Rx#:[id number] Ampicillin-Sulbactam 3 gm 100 100 In Sodium Chloride 0.9% 100 ml @ 200 mls/hr IVPB Q6HR [facility] Rx#:[id number] D5.45 900 900 150 Mvi, Adult No.4 with Vit 330 60 K 10 ml Trace (Conc-1Ml/ Dose) 1 ml Calcium Gluconate 1 gm Sodium Acetate 30 meq Magnesium Sulfate gm 0.5 gm Potassium Phosphate 15 mmol In Amino Acids 5 %/ Dextrose 20 % 1,000 ml @ 30 mls/hr IV .Q24H [facility] Rx #:[id number] Intake, IV Titration 290 30 Amount Fluconazole in NaCl,Iso- 100 Osm 200 mg In Saline 1 100ml.bag @ 100 mls/hr IVPB DAILY [facility] Rx#: [id number] Mvi, Adult No.4 with Vit 90 30 K 10 ml Trace (Conc-1Ml/ Dose) 1 ml Calcium Gluconate 1 gm Sodium Acetate 30 meq Magnesium Sulfate gm 0.5 gm Potassium Phosphate 15 mmol In Amino Acids 5 %/ Dextrose 20 % 1,000 ml @ 30 mls/hr IV .Q24H [facility] Rx #:[id number] Sodium Ferric Gluconat- 100 Sucrose 125 mg In Sodium Chloride 0.9% 100 ml @ 100 mls/hr IVPB DAILY [facility] Rx#:[id number] Blood Product 0 310 Rc As-1 Unit 0 310 [id number] Output: Drainage 130 135 HARRIET Drain #1 RUQ ( 50 35 Dudodenal) HARRIET Drain #2 RUQ (Pelvic) 80 100 Urine 1400 1425 435 Other: Voiding Method Indwelling Catheter Indwelling Catheter # Bowel Movements 1 1 - Exam No acute distress, oriented 3. This morning, the patient is calm and comfortable, slightly sleepy maintain on room air oxygen Head exam was generally normal. There was no scleral icterus or corneal arcus. Mucous membranes were moist. HEENT examination is grossly unremarkable. Neck supple. Full range of motion. No adenopathy thyromegaly or neck vein distention. Cardiovascular examination reveals regular rhythm rate. S1-S2 normal. No S3 or S4. No discernible murmur noted. Lungs reveal clear breath sounds. Breath sounds are equal bilaterally. No adventitious lung sounds including wheezes rhonchi or crackles. Abdomen soft, but tender. Bowel sounds are noted. The patient has 2 drains, HARRIET drain #1 is anterior to the duodenum and HARRIET drain #2 one is in the peritoneal cavity. Output is minimal at this point in time, serosanguineous. The patient also has a provena applied to her anterior abdominal wound. Extremities are intact. No cyanosis clubbing or edema. Patient has a PICC line in the left upper extremity. Skin is without rash or lesion. Neurologic examination is nonfocal and the patient is moving all 4 extremities and she is communicating. Psychiatric history, reports increased anxiety. - Labs CBC & Chem 7: 06/21/23 05:06 06/21/23 05:06 Labs: Abnormal Lab Results - Last 24 Hours (Table) 06/19/23 06/20/23 06/20/23 Range/Units 14:23 09:59 09:59 RBC 2.40 L (3.80-5.40) m/uL Hgb 7.1 L (11.4-16.0) gm/dL Hct 22.0 L (34.0-46.0) % RDW 16.8 H (11.5-15.5) % Potassium (3.5-5.1) mmol/L Chloride (98-107) mmol/L Carbon Dioxide (22-30) mmol/L BUN (7-17) mg/dL POC Glucose (mg/dL) (70-110) mg/dL Calcium (8.4-10.2) mg/dL Total Protein (6.3-8.2) g/dL Albumin (3.5-5.0) g/dL Procalcitonin 0.21 H (0.02-0.09) ng/mL Crossmatch See Detail 06/20/23 06/21/23 06/21/23 Range/Units 11:20 05:06 05:06 RBC 2.25 L (3.80-5.40) m/uL Hgb 6.6 L* (11.4-16.0) gm/dL Hct 20.6 L (34.0-46.0) % RDW 17.4 H (11.5-15.5) % Potassium 3.4 L (3.5-5.1) mmol/L Chloride 117 H 114 H (98-107) mmol/L Carbon Dioxide 19 L 21 L (22-30) mmol/L BUN 5 L (7-17) mg/dL POC Glucose (mg/dL) (70-110) mg/dL Calcium 7.6 L 7.5 L (8.4-10.2) mg/dL Total Protein 3.8 L (6.3-8.2) g/dL Albumin 1.8 L (3.5-5.0) g/dL Procalcitonin (0.02-0.09) ng/mL Crossmatch 06/21/23 Range/Units 05:39 RBC (3.80-5.40) m/uL Hgb (11.4-16.0) gm/dL Hct (34.0-46.0) % RDW (11.5-15.5) % Potassium (3.5-5.1) mmol/L Chloride (98-107) mmol/L Carbon Dioxide (22-30) mmol/L BUN (7-17) mg/dL POC Glucose (mg/dL) 117 H (70-110) mg/dL Calcium (8.4-10.2) mg/dL Total Protein (6.3-8.2) g/dL Albumin (3.5-5.0) g/dL Procalcitonin (0.02-0.09) ng/mL Crossmatch Microbiology - Last 24 Hours (Table) 06/18/23 16:38 Blood Culture - Preliminary Blood Assessment and Plan Plan: Acute on chronic duodenal ulcer, the patient is status post extensive laparotomy, gastric lavage, peritoneal lavage and lysis of adhesions. The patient is currently postop day # 4. HARRIET drains are in place and output is minimal at this point. Abdominal wound is clean. The patient is currently on a combination of Unasyn and Diflucan, the patient remains nothing by mouth. Antibiotic coverage is unchanged and the patient is receiving a combination of Unasyn and Diflucan. The patient is currently receiving TPN for nutritional support. She is on IV Protonix Also extensive laparotomy, postoperative day # 4 Melanotic stool, probably related to a previous upper GI bleed. Hemoglobin dropped down to 6.5 yesterday and is currently up to 7.1 posttransfusion 1 unit of packed RBC and subsequently the patient had 2 more episodes of melanotic stool with a drop in hemoglobin down to 6.6. Another 2 units of packed RBC was given. There is ongoing upper GI bleed at this point in time. PICC line inserted and the patient will be started on TPN for nutritional support Staph hominis in the blood, likely contaminant, would like to repeat blood cultures and obtain appropriate calcitonin level Post ventilator dependent respiratory failure and the patient was extubated yesterday to 2 L of oxygen nasal cannula Anemia, status post 6 units of PRBCs total. Hemoglobin today is at 6.6 from this morning and received another unit of packed RBC Recent EGD, June 06, which revealed a duodenal ulcer with previous ulcer repair. Hypokalemia, recovered Non-anion gap metabolic acidosis, serum bicarbs of 19 and the patient is on D5 half-normal saline 75 mL an hour History of polysubstance abuse and respiratory failure. Previous episode of respiratory failure, prolonged, requiring tracheostomy tube insertion. History of rhabdomyolysis. History of acute kidney injury History of methicillin-resistant staph aureus sepsis. History of PTSD. History of depression. Episodes of delirium, given Haldol, more appropriate on today's evaluation Plan Repeat blood cultures are negative thus far Pro calcitonin level is at 0.2 There is obvious concern of ongoing upper GI bleed The patient needs to be transferred to a tertiary care center Discussed the case with Dr. Francine Kaur Keep the patient nothing by mouth IV Protonix Continue TPN Patient is currently on room air oxygen Encourage the use of incentive spirometer NG tube has been removed by the patient Continue Unasyn and Diflucan for now Monitor output from the HARRIET drain #1 and HARRIET drain #2 Monitor for a drop in hemoglobin and obtain another CBC posttransfusion Compression devices to lower extremities IV Protonix Haldol 2 mg IV every 4-6 hours for delirium Dilaudid for pain control We'll continue to follow We'll initiate transfer to another facility
[2023-06-21] MEDS: FLUCONAZOLE IN NACL,ISO-OSM 200 MG in SALINE 1 100ML.BAG IVPB SCH (10:00)
--- NOTE | 2023-06-21 10:14 | P.PN ---
Subjective Progress Note Date: 06/21/23 CHIEF COMPLAINT: Abdominal pain HISTORY OF PRESENT ILLNESS: The patient is a 47 year old female who presented with chronic perforated duodenal ulcer. She is status post exploratory laparotomy, gastric lavage, intraoperative EGD confirming duodenal ulcer is completely sealed. Patient has had another bloody bowel movement. Hemoglobin dropped from 7.1-6.6. She is having another bloody bowel movement this morning. 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 Chance for to [facility] was discussed yesterday and with her current event is discussed today. She is on TPN. She denies moderate abdominal pain. REVIEW OF ORGAN SYSTEMS: No fevers or chills. No shortness of breath. PHYSICAL EXAM: VITALS: Reviewed CONSTITUTIONAL: Well developed and in no acute distress. EYES: Conjuctivae without sclera icterus. Extraocular movements grossly intact. HEAD, EARS, NOSE, THROAT: Moist buccal mucosa. Head is atraumatic, normocephalic. Hears conversational speech. No nasal drainage. RESPIRATORY: Non-labored respirations and equal bilateral excursions. No gross wheezes. CARDIOVASCULAR: Palpable 2+ radial pulses. ABDOMEN: Incision clean, dry and intact. MUSCULOSKELETAL: No clubbing cyanosis or edema SKIN: Warm and well perfused with good skin turgor. NEUROLOGIC: Cranial nerves II through XII grossly intact. No focal or lateralizing signs. PSYCH: Flat affect. Alert and oriented to person, place and time. Displays appropriate insight. CLINCAL LABS: Reviewed. WBC normal. Hgb 6.6. Total 6 u PRBCs during current hospitalization. ASSESSMENT: 1. Duodenal ulcer, recurrent 2. Localized pneumoperitoneum 3. Acute anemia 4. Acute kidney injury 5. Tobacco abuse 6. Hematemesis 7. Acute blood loss anemia PLAN: 1. Recommend emergent transfer to [facility] for services of GI and interventional radiology for control of GI bleed as services are not available at this institution. Patient agreed with care plan. Objective - Vital Signs Vital signs: Vital Signs Temp 98 F 06/21/23 08:34 Pulse 86 06/21/23 10:00 Resp 18 06/21/23 10:00 BP 145/103 06/21/23 10:00 Pulse Ox 96 06/21/23 10:00 FiO2 50 06/18/23 08:00 Intake & Output 06/20/23 06/21/23 06/21/23 18:59 06:59 18:59 Intake Total 1390 1460 1130 Output Total 1530 1560 610 Balance -140 -100 520 Weight 83.2 kg 83 kg Intake: IV 1100 1430 520 ACETAMINOPHEN IV (For NPO 100 100 ) 1,000 mg In Empty Bag 1 bag @ 400 mls/hr IVPB Q6HR [facility] Rx#:[id number] Ampicillin-Sulbactam 3 gm 100 100 In Sodium Chloride 0.9% 100 ml @ 200 mls/hr IVPB Q6HR [facility] Rx#:[id number] D5.45 900 900 300 Fluconazole in NaCl,Iso- 100 Osm 200 mg In Saline 1 100ml.bag @ 100 mls/hr IVPB DAILY [facility] Rx#: [id number] Mvi, Adult No.4 with Vit 330 120 K 10 ml Trace (Conc-1Ml/ Dose) 1 ml Calcium Gluconate 1 gm Sodium Acetate 30 meq Magnesium Sulfate gm 0.5 gm Potassium Phosphate 15 mmol In Amino Acids 5 %/ Dextrose 20 % 1,000 ml @ 30 mls/hr IV .Q24H [facility] Rx #:[id number] Intake, IV Titration 290 30 300 Amount Fluconazole in NaCl,Iso- 100 Osm 200 mg In Saline 1 100ml.bag @ 100 mls/hr IVPB DAILY [facility] Rx#: [id number] Magnesium Sulfate-D5w Pmx 100 1 gm In Dextrose/Water 1 100ml.bag @ 100 mls/hr IVPB ONCE [facility] Rx#: [id number] Mvi, Adult No.4 with Vit 90 30 K 10 ml Trace (Conc-1Ml/ Dose) 1 ml Calcium Gluconate 1 gm Sodium Acetate 30 meq Magnesium Sulfate gm 0.5 gm Potassium Phosphate 15 mmol In Amino Acids 5 %/ Dextrose 20 % 1,000 ml @ 30 mls/hr IV .Q24H [facility] Rx #:[id number] Potassium Chloride 20 meq 200 In Water For Injection 1 100ml.bag @ 50 mls/hr IVPB Q2H [facility] Rx#: [id number] Sodium Ferric Gluconat- 100 Sucrose 125 mg In Sodium Chloride 0.9% 100 ml @ 100 mls/hr IVPB DAILY [facility] Rx#:[id number] Blood Product 0 310 Rc As-1 Unit 0 310 [id number] Output: Drainage 130 135 HARRIET Drain #1 RUQ ( 50 35 Dudodenal) HARRIET Drain #2 RUQ (Pelvic) 80 100 Urine 1400 1425 610 Other: Voiding Method Indwelling Catheter Indwelling Catheter # Bowel Movements 1 1 - Labs CBC & Chem 7: 06/21/23 05:06 06/21/23 05:06 Labs: Abnormal Lab Results - Last 24 Hours (Table) 06/19/23 06/20/23 06/20/23 Range/Units 14:23 09:59 09:59 RBC 2.40 L (3.80-5.40) m/uL Hgb 7.1 L (11.4-16.0) gm/dL Hct 22.0 L (34.0-46.0) % RDW 16.8 H (11.5-15.5) % Potassium (3.5-5.1) mmol/L Chloride (98-107) mmol/L Carbon Dioxide (22-30) mmol/L BUN (7-17) mg/dL POC Glucose (mg/dL) (70-110) mg/dL Calcium (8.4-10.2) mg/dL Total Protein (6.3-8.2) g/dL Albumin (3.5-5.0) g/dL Procalcitonin 0.21 H (0.02-0.09) ng/mL Crossmatch See Detail 06/20/23 06/21/23 06/21/23 Range/Units 11:20 05:06 05:06 RBC 2.25 L (3.80-5.40) m/uL Hgb 6.6 L* (11.4-16.0) gm/dL Hct 20.6 L (34.0-46.0) % RDW 17.4 H (11.5-15.5) % Potassium 3.4 L (3.5-5.1) mmol/L Chloride 117 H 114 H (98-107) mmol/L Carbon Dioxide 19 L 21 L (22-30) mmol/L BUN 5 L (7-17) mg/dL POC Glucose (mg/dL) (70-110) mg/dL Calcium 7.6 L 7.5 L (8.4-10.2) mg/dL Total Protein 3.8 L (6.3-8.2) g/dL Albumin 1.8 L (3.5-5.0) g/dL Procalcitonin (0.02-0.09) ng/mL Crossmatch 06/21/23 Range/Units 05:39 RBC (3.80-5.40) m/uL Hgb (11.4-16.0) gm/dL Hct (34.0-46.0) % RDW (11.5-15.5) % Potassium (3.5-5.1) mmol/L Chloride (98-107) mmol/L Carbon Dioxide (22-30) mmol/L BUN (7-17) mg/dL POC Glucose (mg/dL) 117 H (70-110) mg/dL Calcium (8.4-10.2) mg/dL Total Protein (6.3-8.2) g/dL Albumin (3.5-5.0) g/dL Procalcitonin (0.02-0.09) ng/mL Crossmatch Microbiology - Last 24 Hours (Table) 06/18/23 16:38 Blood Culture - Preliminary Blood
--- NOTE | 2023-06-21 10:29 | P.PN ---
Subjective Patient is seen in follow-up for electrolyte imbalance. Renal function is back to baseline. Potassium is low and is being replaced. Bicarb level stable at 21. Received a unit of blood this morning. Had black stools overnight. Vital signs are stable. General: No acute distress. HEENT: Head exam is unremarkable. LUNGS: No audible rhonchi or wheezes. HEART: Rate and Rhythm are regular. ABDOMEN: No distention. EXTREMITITES: No edema. Objective - Vital Signs Vital signs: Vital Signs Temp 98 F 06/21/23 08:34 Pulse 86 06/21/23 10:00 Resp 18 06/21/23 10:00 BP 145/103 06/21/23 10:00 Pulse Ox 96 06/21/23 10:00 FiO2 50 06/18/23 08:00 Intake & Output 06/20/23 06/21/23 06/21/23 18:59 06:59 18:59 Intake Total 1390 1460 1130 Output Total 1530 1560 610 Balance -140 -100 520 Weight 83.2 kg 83 kg Intake: IV 1100 1430 520 ACETAMINOPHEN IV (For NPO 100 100 ) 1,000 mg In Empty Bag 1 bag @ 400 mls/hr IVPB Q6HR [facility] Rx#:[id number] Ampicillin-Sulbactam 3 gm 100 100 In Sodium Chloride 0.9% 100 ml @ 200 mls/hr IVPB Q6HR [facility] Rx#:[id number] D5.45 900 900 300 Fluconazole in NaCl,Iso- 100 Osm 200 mg In Saline 1 100ml.bag @ 100 mls/hr IVPB DAILY [facility] Rx#: [id number] Mvi, Adult No.4 with Vit 330 120 K 10 ml Trace (Conc-1Ml/ Dose) 1 ml Calcium Gluconate 1 gm Sodium Acetate 30 meq Magnesium Sulfate gm 0.5 gm Potassium Phosphate 15 mmol In Amino Acids 5 %/ Dextrose 20 % 1,000 ml @ 30 mls/hr IV .Q24H [facility] Rx #:[id number] Intake, IV Titration 290 30 300 Amount Fluconazole in NaCl,Iso- 100 Osm 200 mg In Saline 1 100ml.bag @ 100 mls/hr IVPB DAILY [facility] Rx#: [id number] Magnesium Sulfate-D5w Pmx 100 1 gm In Dextrose/Water 1 100ml.bag @ 100 mls/hr IVPB ONCE ONE Rx#: [id number] Mvi, Adult No.4 with Vit 90 30 K 10 ml Trace (Conc-1Ml/ Dose) 1 ml Calcium Gluconate 1 gm Sodium Acetate 30 meq Magnesium Sulfate gm 0.5 gm Potassium Phosphate 15 mmol In Amino Acids 5 %/ Dextrose 20 % 1,000 ml @ 30 mls/hr IV .Q24H [facility] Rx #:[id number] Potassium Chloride 20 meq 200 In Water For Injection 1 100ml.bag @ 50 mls/hr IVPB Q2H [facility] Rx#: [id number] Sodium Ferric Gluconat- 100 Sucrose 125 mg In Sodium Chloride 0.9% 100 ml @ 100 mls/hr IVPB DAILY [facility] Rx#:[id number] Blood Product 0 310 Rc As-1 Unit 0 310 [id number] Output: Drainage 130 135 HARRIET Drain #1 RUQ ( 50 35 Dudodenal) HARRIET Drain #2 RUQ (Pelvic) 80 100 Urine 1400 1425 610 Other: Voiding Method Indwelling Catheter Indwelling Catheter # Bowel Movements 1 1 - Labs CBC & Chem 7: 06/21/23 05:06 06/21/23 05:06 Labs: Abnormal Lab Results - Last 24 Hours (Table) 06/19/23 06/20/23 06/20/23 Range/Units 14:23 09:59 09:59 RBC 2.40 L (3.80-5.40) m/uL Hgb 7.1 L (11.4-16.0) gm/dL Hct 22.0 L (34.0-46.0) % RDW 16.8 H (11.5-15.5) % Potassium (3.5-5.1) mmol/L Chloride (98-107) mmol/L Carbon Dioxide (22-30) mmol/L BUN (7-17) mg/dL POC Glucose (mg/dL) (70-110) mg/dL Calcium (8.4-10.2) mg/dL Total Protein (6.3-8.2) g/dL Albumin (3.5-5.0) g/dL Procalcitonin 0.21 H (0.02-0.09) ng/mL Crossmatch See Detail 06/20/23 06/21/23 06/21/23 Range/Units 11:20 05:06 05:06 RBC 2.25 L (3.80-5.40) m/uL Hgb 6.6 L* (11.4-16.0) gm/dL Hct 20.6 L (34.0-46.0) % RDW 17.4 H (11.5-15.5) % Potassium 3.4 L (3.5-5.1) mmol/L Chloride 117 H 114 H (98-107) mmol/L Carbon Dioxide 19 L 21 L (22-30) mmol/L BUN 5 L (7-17) mg/dL POC Glucose (mg/dL) (70-110) mg/dL Calcium 7.6 L 7.5 L (8.4-10.2) mg/dL Total Protein 3.8 L (6.3-8.2) g/dL Albumin 1.8 L (3.5-5.0) g/dL Procalcitonin (0.02-0.09) ng/mL Crossmatch 06/21/23 Range/Units 05:39 RBC (3.80-5.40) m/uL Hgb (11.4-16.0) gm/dL Hct (34.0-46.0) % RDW (11.5-15.5) % Potassium (3.5-5.1) mmol/L Chloride (98-107) mmol/L Carbon Dioxide (22-30) mmol/L BUN (7-17) mg/dL POC Glucose (mg/dL) 117 H (70-110) mg/dL Calcium (8.4-10.2) mg/dL Total Protein (6.3-8.2) g/dL Albumin (3.5-5.0) g/dL Procalcitonin (0.02-0.09) ng/mL Crossmatch Microbiology - Last 24 Hours (Table) 06/18/23 16:38 Blood Culture - Preliminary Blood Assessment and Plan Plan: Assessment: 1. Acute kidney injury secondary to ATN secondary to hypovolemia, hypotension. Resolved. 2. Hypokalemia from poor intake. Being replaced. 3. Metabolic acidosis secondary to acute kidney injury. Improved. Status post bicarb drip. 4. Acute blood loss anemia. Status post blood transfusion today. 5. Duodenal ulcer and localized pneumoperitoneum status post surgical intervention this admission. Surgery following. Plan: Replace electrolytes per protocol. Awaits transfer to [facility] for management of acute GI bleed. Maintain fluid/TPN
[2023-06-21] MEDS: SODIUM FERRIC GLUCONAT-SUCROSE 125 MG in SODIUM CHLORIDE 0.9% 100 ML IVPB SCH (11:02)
[2023-06-21 11:45] LABS: Glucose,Whole Blood 98 mg/dL (70-110)
--- NOTE | 2023-06-21 12:12 | P.PN ---
Subjective ymes are normal urine has been negative urine drug screen was positive for benzo and cocaine patient noticed to have a wound to the dorsum aspect of the right foot for the patient did have a chest x-ray soft tissue swelling edema of the foot without evidence for fracture or bony erosion chest x-ray cardiomegaly mild pulm vascular congestion infectious disease was consulted for right foot wound most information has been obtained from review the chart as the patient remains to be lethargic and did not provide any history as far as right foot wound and the kind of treatment he is receiving for it ymes are normal urine has been negative urine drug screen was positive for benzo and cocaine patient noticed to have a wound to the dorsum aspect of the right foot for the patient did have a chest x-ray soft tissue swelling edema of the foot without evidence for fracture or bony erosion chest x-ray cardiomegaly mild pulm vascular congestion infectious disease was consulted for right foot wound most information has been obtained from review the chart as the patient remains to be lethargic and did not provide any history as far as right foot wound and the kind of treatment he is receiving for it -- CT of the abdomen and pelvis completed reveals upper abdomen inflammation likely secondary to perforated gastric ulcer; circumferential wall thickening of the gallbladder with hyperemia likely secondary to 1 -- Stat surgical consult is done -- Hemoglobin is down to 5.6; 2 units of packed RBCs are ordered -- Patient is being transferred to ICU 06/17/2023 Patient is seen and evaluated in room at bedside; patient had CT of the abdomen and pelvis completed yesterday which revealed perforated gastric ulcer; general surgery was consulted and patient was transferred to ICU Vital signs are reviewed and stable with temperature of 97.9, pulse 67, respiration 13 and blood pressure 147/94 White count is 8.7, hemoglobin 8.2, hematocrit 24.8, and platelet count 326,000. Sodium 141, potassium 3.6, chlorides 115, CO2 16, BUN 14, and creatinine 0.78. Albumin is 2.1. -- Patient has received a total of 4 units of packed RBCs; hemoglobin is stable at 8.2 General surgery and with the plans to take the patient to OR this afternoon; patient has been cleared by cardiology 06/18/2023 Patient was intubated in the morning, M she was extubated Currently on BiPAP. Mildly tachypneic. She remains on broad-spectrum antibiotic of Unasyn and fluconazole for suspected peritonitis from perforated peptic ulcer. Status post exploratory laparotomy and lysis of adhesions with peritoneal lavage Blood culture is contamination present. Currently on gentle hydration of D5 half normal saline at 75 mL/h 06/19/2023 Patient status post extubation and currently on 3 L oxygen via nasal cannula monitored tachypneic and tachycardic, earlier was on BiPAP and she tolerates this well as well. Her hemoglobin dropped today to 6.5 and she's getting IV iron. She is status post multiple blood transfusion. WBCs 11,000. Extremities on Unasyn and fluconazole. She developed agitation at times requiring Haldol when necessary for her enceph alopathic Patient is still nothing by mouth and found to be started on TPN today 06/20/2023 Patient is awake but in distress due to her abdominal pain. She still nothing by mouth with no bowel movement. Today his fentanyl patch and Dilaudid as provided for her for better better control TPN is running, Hdz catheter in place She remains on Unasyn and fluconazole No fluid. Hemoglobin improved 6.5 up to 7.1 after blood transfusion 06/21/2023 Patient still remains in the ICU, she is awake and alert. And a from epigastric pain and tenderness, she still nothing by mouth receiving TPN. The bowel movement today. Hemoglobin dropped to 6.6. Surgical team recommended transfer the patient to tertiary care center. As the case with Dr. Cancino from [facility] and he kindly accepted the patient pending bed availability Patient also is going to receive 6 units of blood transfusion No anticoagulation remains on IV Protonix Plan of care discussed in details with the bedside nurse as well. Review of systems CONSTITUTIONAL: No fever, no malaise, no fatigue. HEENT: No recent visual problems or hearing problems. Denied any sore throat. CARDIOVASCULAR: No orthopnea, PND, no palpitations, no syncope. PULMONARY: No shortness of breath, no cough, no hemoptysis. NEUROLOGICAL: No headaches, no weakness, no numbness. HEMATOLOGICAL: Denies any bleeding or petechiae. GENITOURINARY: Denies any burning micturition, frequency, or urgency. Active Medications Generic Name Dose Route Start Last Admin Trade Name Freq PRN Reason Stop Dose Admin Dextrose/Water 25 ml 06/20/23 10:48 Dextrose 50% Syringe 50 Ml IVP PER PROTOCOL PRN Hypoglycemia Protocol Dextrose/Water 50 ml 06/20/23 10:48 Dextrose 50% Syringe 50 Ml IVP PER PROTOCOL PRN Hypoglycemia Protocol Fentanyl 1 patch 06/20/23 16:30 06/20/23 16:12 Fentanyl 12mcg/Hr Patch TRANSDERM 1 patch Q72H [facility] Administration Protocol Haloperidol Lactate 2 mg 06/19/23 09:44 06/21/23 03:53 Haloperidol Lactate 5 Mg/Ml 1 Ml Vial IVP 2 mg Q4HR PRN Administration Agitation or Acute Psychosis Hydromorphone HCl 0.5 mg 06/20/23 22:00 06/21/23 11:43 Hydromorphone 0.5 Mg/0.5 Ml Syringe IVP 0.5 mg Q1HR PRN Administration Pain Fluconazole/Sodium Chloride 100 mls @ 100 mls/hr 06/16/23 09:45 06/21/23 10:00 200 mg/ IV Solution IVPB 100 mls/hr DAILY [facility] Administration Protocol Ampicillin Sodium/Sulbactam 100 mls @ 200 mls/hr 06/16/23 19:00 06/21/23 06:07 Sodium 3 gm/ Sodium Chloride IVPB 200 mls/hr Q6HR [facility] Administration Protocol Acetaminophen 1,000 mg/ IV 100 mls @ 400 mls/hr 06/18/23 00:00 06/21/23 07:35 Solution IVPB Not Given Q6HR [facility] Dextrose/Sodium Chloride 1,000 mls @ 75 mls/hr 06/18/23 09:30 06/21/23 06:10 Dextrose 5%-1/2ns Iv Soln IV 75 mls/hr .[id number] [facility] Administration Parenteral Vitamin Supplement 1,042 mls @ 30 mls/hr 06/20/23 14:30 06/20/23 15:26 10 ml/ Zinc/Copper/Manganese/ IV 06/21/23 14:29 30 mls/hr Selenium 1 ml/ Calcium .Q24H [facility] Administration Gluconate 1 gm/ Sodium Acetate 30 meq/ Magnesium Sulfate 0.5 gm/ Potassium Phosphate 15 mmol/ Amino Acids/Dextrose Fat Emulsion Intravenous 250 250 mls @ 21 mls/hr 06/21/23 21:00 ml/ IV Solution IV [id number] [facility] Parenteral Vitamin Supplement 1,047 mls @ 75 mls/hr 06/21/23 14:30 10 ml/ Zinc/Copper/Manganese/ IV Selenium 1 ml/ Calcium .BY DURATION [facility] Gluconate 1 gm/ Sodium Acetate 30 meq/ Magnesium Sulfate 0.5 gm/ Potassium Phosphate 15 mmol/ Potassium Acetate 10 meq / Amino Acids/Dextrose Calcium Gluconate 1 gm/ Sodium 1,036 mls @ 75 mls/hr 06/21/23 14:30 Acetate 30 meq/ Magnesium IV Sulfate 0.5 gm/ Potassium .BY DURATION [facility] Phosphate 15 mmol/ Potassium Acetate 10 meq/ Amino Acids/ Dextrose Insulin Aspart 0 unit 06/20/23 12:00 06/21/23 07:35 Insulin Aspart (Novolog) 100 Unit/Ml Vial SQ Not Given Q6HR [facility] Protocol Lorazepam 1 mg 06/17/23 12:08 06/21/23 07:04 Lorazepam 2 Mg/Ml Inj IV 1 mg Q6HR PRN Administration Anxiety Metoprolol Tartrate 2.5 mg 06/17/23 12:00 06/21/23 07:08 Metoprolol Tartrate 5 Mg/5 Ml Vial IVP 2.5 mg Q6HR [facility] Administration Miscellaneous Information 1 each 06/17/23 02:24 Potassium Replacement Protocol 1 Each Mis MISCELLANE DAILY PRN Per Protocol Protocol Miscellaneous Information 1 each 06/17/23 03:00 Magnesium Replacement Protocol 1 Each [facility] MISCELLANE DAILY PRN Per Protocol Protocol Naloxone HCl 0.2 mg 06/15/23 11:30 Naloxone 0.4 Mg/Ml 1 Ml Vial IV Q2M PRN Opioid Reversal Ondansetron HCl 4 mg 06/15/23 11:30 06/17/23 18:12 Ondansetron 4 Mg/2 Ml Vial IVP 4 mg Q8HR PRN Administration Nausea And Vomiting Pantoprazole Sodium 40 mg 06/15/23 21:00 06/21/23 08:57 Pantoprazole 40 Mg/10 Ml Vial IV 40 mg BID [facility] Administration Objective - Vital Signs Vital signs: Vital Signs Temp 98 F 06/21/23 08:34 Pulse 78 06/21/23 11:00 Resp 17 06/21/23 11:00 BP 147/99 06/21/23 11:00 Pulse Ox 94 L 06/21/23 11:00 FiO2 50 06/18/23 08:00 Intake & Output 06/20/23 06/21/23 06/21/23 18:59 06:59 18:59 Intake Total 1390 1460 1335 Output Total 1530 1560 760 Balance -140 -100 575 Weight 83.2 kg 83 kg Intake: IV 1100 1430 625 ACETAMINOPHEN IV (For NPO 100 100 ) 1,000 mg In Empty Bag 1 bag @ 400 mls/hr IVPB Q6HR [facility] Rx#:[id number] Ampicillin-Sulbactam 3 gm 100 100 In Sodium Chloride 0.9% 100 ml @ 200 mls/hr IVPB Q6HR [facility] Rx#:[id number] D5.45 900 900 375 Fluconazole in NaCl,Iso- 100 Osm 200 mg In Saline 1 100ml.bag @ 100 mls/hr IVPB DAILY [facility] Rx#: [id number] Mvi, Adult No.4 with Vit 330 150 K 10 ml Trace (Conc-1Ml/ Dose) 1 ml Calcium Gluconate 1 gm Sodium Acetate 30 meq Magnesium Sulfate gm 0.5 gm Potassium Phosphate 15 mmol In Amino Acids 5 %/ Dextrose 20 % 1,000 ml @ 30 mls/hr IV .Q24H [facility] Rx #:[id number] Intake, IV Titration 290 30 400 Amount Fluconazole in NaCl,Iso- 100 Osm 200 mg In Saline 1 100ml.bag @ 100 mls/hr IVPB DAILY [facility] Rx#: [id number] Magnesium Sulfate-D5w Pmx 100 1 gm In Dextrose/Water 1 100ml.bag @ 100 mls/hr IVPB ONCE ONE Rx#: [id number] Mvi, Adult No.4 with Vit 90 30 K 10 ml Trace (Conc-1Ml/ Dose) 1 ml Calcium Gluconate 1 gm Sodium Acetate 30 meq Magnesium Sulfate gm 0.5 gm Potassium Phosphate 15 mmol In Amino Acids 5 %/ Dextrose 20 % 1,000 ml @ 30 mls/hr IV .Q24H [facility] Rx #:[id number] Potassium Chloride 20 meq 200 In Water For Injection 1 100ml.bag @ 50 mls/hr IVPB Q2H [facility] Rx#: [id number] Sodium Ferric Gluconat- 100 100 Sucrose 125 mg In Sodium Chloride 0.9% 100 ml @ 100 mls/hr IVPB DAILY [facility] Rx#:[id number] Blood Product 0 310 Rc As-1 Unit 0 310 [id number] Output: Drainage 130 135 HARRIET Drain #1 RUQ ( 50 35 Dudodenal) HARRIET Drain #2 RUQ (Pelvic) 80 100 Urine 1400 1425 760 Other: Voiding Method Indwelling Catheter Indwelling Catheter # Bowel Movements 1 1 - Exam -GENERAL: The patient is intubated HEENT: Pupils are round and equally reacting to light. EOMI. No scleral icterus. No conjunctival pallor. Normocephalic, atraumatic. No pharyngeal erythema. No thyromegaly. CARDIOVASCULAR: S1 and S2 present. No murmurs, rubs, or gallops. PULMONARY: Chest is clear to auscultation, no wheezing , no crackles. -ABDOMEN: Soft, nontender, nondistended, normoactive bowel sounds. No palpable organomegaly. Surgical wound with a dressing in place MUSCULOSKELETAL: No joint swelling or deformity. EXTREMITIES: No cyanosis, clubbing, or pedal edema. NEUROLOGICAL: Gross neurological examination did not reveal any focal deficits. SKIN: No rashes. no petechiae. - Labs CBC & Chem 7: 06/21/23 05:06 06/21/23 05:06 Labs: Abnormal Lab Results - Last 24 Hours (Table) 06/19/23 06/20/23 06/20/23 Range/Units 14:23 09:59 11:20 RBC (3.80-5.40) m/uL Hgb (11.4-16.0) gm/dL Hct (34.0-46.0) % RDW (11.5-15.5) % Potassium (3.5-5.1) mmol/L Chloride 117 H (98-107) mmol/L Carbon Dioxide 19 L (22-30) mmol/L BUN (7-17) mg/dL POC Glucose (mg/dL) (70-110) mg/dL Calcium 7.6 L (8.4-10.2) mg/dL Total Protein 3.8 L (6.3-8.2) g/dL Albumin 1.8 L (3.5-5.0) g/dL Procalcitonin 0.21 H (0.02-0.09) ng/mL Crossmatch See Detail 06/21/23 06/21/23 06/21/23 Range/Units 05:06 05:06 05:39 RBC 2.25 L (3.80-5.40) m/uL Hgb 6.6 L* (11.4-16.0) gm/dL Hct 20.6 L (34.0-46.0) % RDW 17.4 H (11.5-15.5) % Potassium 3.4 L (3.5-5.1) mmol/L Chloride 114 H (98-107) mmol/L Carbon Dioxide 21 L (22-30) mmol/L BUN 5 L (7-17) mg/dL POC Glucose (mg/dL) 117 H (70-110) mg/dL Calcium 7.5 L (8.4-10.2) mg/dL Total Protein (6.3-8.2) g/dL Albumin (3.5-5.0) g/dL Procalcitonin (0.02-0.09) ng/mL Crossmatch Microbiology - Last 24 Hours (Table) 06/18/23 16:38 Blood Culture - Preliminary Blood Assessment and Plan Assessment: #. Acute perforated due to perforated duodenal ulcer with localized pneumoperit oneum status post exploratory laparotomy with lysis of adhesions and peritoneal lavage = With postop care, continue nothing by mouth - Plan to start TPN - General surgery on the case. Continue gentle hydration and antibiotic - Patient is having recurrent GI bleed with drop in hemoglobin, 6.6 today, she is getting the 6 units of blood transfusion since admission to the hospital. Recommendation to transfer the patient to tertiary care center by surgical team. I talked to Dr. Valle from her [facility] who accepted the patient pending bed availability #. Altered mental status; likely multifactorial related to polysubstance abuse versus AK I/dehydration - Improving #. Acute renal injury/dehydration - BUN/creatinine elevated at 47/2.29 -- We will start patient on IV fluid hydration form of normal saline at a rate of 100 mL an hour; monitor strict KATERINE's, daily weights, renal function and electrolytes - Avoid nephrotoxins and hypotension #. Severe anemia; patient received 2 units packed RBCs in ED; we will monitor H&H every 6 hours with plans to transfuse if hemoglobin is less than 7.0; stool occult blood on stool specimens; Protonix 40 mg IV every 12 hours -- Consult general surgery #. Electrolyte imbalance; supplemented in ED; monitor electrolytes closely and supplement as needed #. Polysubstance abuse; urine drug screen is positive for opiates, benzodiazepines and marijuana #. Hypertension; metoprolol 12.5 mg twice a day #. Depression/anxiety; patient takes Wellbutrin, Zoloft and BuSpar DVT prophylaxis; SCDs only CODE STATUS; full code
[2023-06-21] MEDS ORDERED: cloNIDine 0.1 MG/24HR PATCH TRANSDERM SCH (13:00)
[2023-06-21 13:17] LABS: Anisocytosis Slight; HCT 23.5 % (34.0-46.0); HGB 7.7 gm/dL (11.4-16.0); Hypochromasia Slight; MCH 29.6 pg (25.0-35.0); MCHC 32.8 g/dL (31.0-37.0); MCV 90.2 fL (80.0-100.0); Mean Platelet Volume 8.5; Platelet Count 316 k/uL (150-450); Poikilocytosis Slight; RBC 2.61 m/uL (3.80-5.40); RDW 16.5 % (11.5-15.5)
--- NOTE | 2023-06-21 13:21 | P.CN ---
Psychiatric Consult - . Consult date: 06/21/23 Consult:: 06/21/23 13:14 This is a psychiatric assessment on this 47-year-old female was currently hospitalized aftertatus post exploratory laparoscopy done by Dr. Todd with repair of duodenal ulcer, patient currently complaining of generalized abdominal pain, she had a history of polysubstance abuse and history of chronic pain syndrome, and she was on pain medication as an outpatient OxyIR 5 mg every 6 hours, patient had history of polysubstance abuse and respiratory failure , Patient admits that she was previously diagnosed with anxiety disorder and substance use problems and that she also had a history of PTSD She reports that she sees a psychiatrist every few years just for assessment for her disability Patient states that she had problems with the methamphetamine use about 2 years ago and that she started using it 2020 She said that she currently uses cannabis and cigarettes She states that she does not have any issues with depression or anxiety at this time does not prefer to have any psychiatric follow-up or treatments She denies any auditory or visual hallucinations She denies any depression or anxiety She says that her current medications are working well for her and that she continues to stay on the same She denies any intention of harming herself or others Past history personal social history Patient reports that she has had some treatment with psychiatry in the past but denies any intention of harming herself or others She denies any history of suicidal ideations or attempts She admits that she had problems with methamphetamine use but that she stop doing so in 2020 Mental status examination: Reveals a middle-aged female who appears about her age and currently appears in no acute physical distress Patient was laying in bed comfortably Patient at times seem to be fatigued but was cooperative during the interview She is alert and oriented to time place and person. Speech is clear: Relevant Thought processes are goal-directed sequential and logical Patient is oriented to time place and person Thought processes are goal-directed sequential and logical Affect was flat Cognitively she appears to be intact Patient denies any thoughts of wanting to herself or others Diagnostic impression: Depressive disorder by history in remission Anxiety disorder unspecified mild in treatment Methamphetamine use disorder in remission Cannabis use disorder unspecified PTSD by history Plan: The patient this time declined any psychiatric intervention or help at this time and stated that she is doing well on the current medications and treatment Patient declining any further intervention and states that she will seek out any help if she needs any further help She is encouraged to maintain abstinence as well as to seek out any help through local mental services are private psychiatrist as needed Thank you very much for current referral please feel free to contact be of any further questions
[2023-06-21 14:00] VITALS: TEMP 98.8
[2023-06-21] MEDS ORDERED: 1: MVI, ADULT NO.4 WITH VIT K 10 ML, TRACE (CONC-1ML/DOSE) 1 ML, CALCIUM GLUCONATE 1 GM, IV SCH ×15 (14:30)
[2023-06-21 16:21] VITALS: BP 146/109; PULSE 83; RESP 25
--- NOTE | 2023-06-21 20:50 | PN ---
PROGRESS NOTE HISTORY OF PRESENT ILLNESS: Kristina is a 47-year-old lady with polysubstance abuse, who was admitted to hospital with a perforated stomach. We are following the patient for tachycardia and hypertension. Her heart rate is well controlled now, but her blood pressure is significantly elevated. I will start her on Catapres patch 0.1 mg, hold the Lopressor, and at this stage follow her on an as needed basis. PHYSICAL EXAMINATION: GENERAL: Comfortable at rest. VITAL SIGNS: Blood pressure is elevated. CHEST: Reveals good air entry bilaterally. HEART: Reveals first and second heart sounds. No gallop. EXTREMITIES: Did not reveal any edema. Peripheral pulses are felt. LABORATORY DATA: Labs show that hemoglobin is 6.6, potassium is 3.4, creatinine is 0.7. ASSESSMENT: 1. Status post gastric perforation. 2. Anemia. 3. Hypertension. PLAN: The patient will be treated with Catapres patch. I am going to see her on an as needed basis at this time. MMODL / IJN: [id number] /
[2023-06-21] MEDS ORDERED: FAT EMULSION 20% 250 ML in EMPTY BAG 1 BAG IV SCH (21:00)
== END 2023-06-21 16:30 | disposition short-term general hospital (02) | DRG 224 ==
LOC: EC 06:36 → 5NMEDONC 12:00 → 2SICU 06-16 14:31
PROVIDERS: ADMIT Internal Medicine; ATTEND Internal Medicine
PROC: 30233P1 Transfusion of Nonautologous Frozen Red Cells into Peripheral Vein, Percutaneous Approach (ICD-10-PCS; 2023-06-15)
PROC: 0DJ08ZZ Inspection of Upper Intestinal Tract, Via Natural or Artificial Opening Endoscopic (ICD-10-PCS; principal; 2023-06-17 12:45)
PROC: 3E1G78Z Irrigation of Upper GI using Irrigating Substance, Via Natural or Artificial Opening (ICD-10-PCS; principal; 2023-06-17 12:45)
PROC: 0D9770Z Drainage of Stomach, Pylorus with Drainage Device, Via Natural or Artificial Opening (ICD-10-PCS; principal; 2023-06-17 12:45)
PROC: 3E1M48Z Irrigation of Peritoneal Cavity using Irrigating Substance, Percutaneous Endoscopic Approach (ICD-10-PCS; principal; 2023-06-17 12:45)
PROC: 0DN90ZZ Release Duodenum, Open Approach (ICD-10-PCS; principal; 2023-06-17 12:45)
PROC: 02HV33Z Insertion of Infusion Device into Superior Vena Cava, Percutaneous Approach (ICD-10-PCS; 2023-06-19 09:00)
DX: K26.1 Acute duodenal ulcer with perforation (principal); K66.0 Peritoneal adhesions (postprocedural) (postinfection); D62 Acute posthemorrhagic anemia; E86.0 Dehydration; K26.6 Chronic or unspecified duodenal ulcer with both hemorrhage and perforation; E86.1 Hypovolemia; N17.0 Acute kidney failure with tubular necrosis; E87.6 Hypokalemia; G93.41 Metabolic encephalopathy; Z71.6 Tobacco abuse counseling; F17.210 Nicotine dependence, cigarettes, uncomplicated; F32.A Depression, unspecified; F41.1 Generalized anxiety disorder; K65.9 Peritonitis, unspecified; F43.10 Post-traumatic stress disorder, unspecified; F15.11 Other stimulant abuse, in remission; N18.9 Chronic kidney disease, unspecified; I10 Essential (primary) hypertension; Z87.11 Personal history of peptic ulcer disease; K82.8 Other specified diseases of gallbladder; Z71.3 Dietary counseling and surveillance; N20.0 Calculus of kidney; R29.6 Repeated falls; Z79.899 Other long term (current) drug therapy; Z86.14 Personal history of Methicillin resistant Staphylococcus aureus infection; Z86.19 Personal history of other infectious and parasitic diseases; Z88.2 Allergy status to sulfonamides; Z28.310 Unvaccinated for COVID-19; Z11.52 Encounter for screening for COVID-19; Z87.820 Personal history of traumatic brain injury; Z91.51 Personal history of suicidal behavior
CPT/HCPCS: 36415; 36430; 36573; 36600; 70450; 71045; 71046; 74176; 76937; 80048; 80053; 80306; 80320; 81003; 82140; 82330; 82550; 82805; 83036; 83540; 83550; 83735; 84100; 84132; 84145; 84478; 84484; 85025; 85027; 85610; 85730; 86140; 86850; 86900; 86901; 86920; 87040; 87077; 87186; 87635; 93005; 93306; 94002; 94003; 94760; 96361; 96374; 99291

== ENCOUNTER 2023-07-31 19:00 | Inpatient (IN) | payer OTHER ==
[2023-07-31] MEDS: SODIUM CHLORIDE 0.9% 1,000 ML IV STA ×3 (21:03→22:48)
[2023-07-31] MEDS: ONDANSETRON 4 MG/2 ML VIAL IVP STA (21:04)
[2023-07-31] MEDS: PANTOPRAZOLE 40 MG/10 ML VIAL IVP STA (21:05)
[2023-07-31] MEDS: MORPHINE SULFATE 4 MG/ML SYRINGE IVP STA (21:06)
[2023-07-31 21:36] LABS: Basophils % (A) 0 %; Eosinophils # (A) 0.1 k/uL (0-0.7); Eosinophils % (A) 1 %; HCT 37.6 % (34.0-46.0); INR 0.9 (<1.2); Lymphocytes # (A) 2.2 k/uL (1.0-4.8); Lymphocytes % (A) 29 %; MCH 29.8 pg (25.0-35.0); MCHC 33.1 g/dL (31.0-37.0); MCV 90.1 fL (80.0-100.0); Mean Platelet Volume 8.1; Monocytes # (A) 0.3 k/uL (0-1.0); Monocytes % (A) 4 %; Neutrophils # (A) 5.1 k/uL (1.3-7.7); Neutrophils % (A) 65 %; Partial Thromboplastin Time 22.7 sec (22.0-30.0); Platelet Count 282 k/uL (150-450); Prothrombin Time 10.4 sec (10.0-12.5); RBC 4.17 m/uL (3.80-5.40); RDW 15.2 % (11.5-15.5); WBC 7.8 k/uL (3.8-10.6)
[2023-07-31 21:38] LABS: ALT 10 U/L (4-34); AST 18 U/L (14-36); African American GFR (CKD) 64 (>60 ml/min/1.73 sqM); Albumin 3.3 g/dL (3.5-5.0); Alkaline Phosphatase 77 U/L (38-126); Amylase 66 U/L (30-110); Anion Gap 7 mmol/L; Blood Urea Nitrogen 11 mg/dL (7-17); Calcium 9.1 mg/dL (8.4-10.2); Carbon Dioxide 22 mmol/L (22-30); Chloride 112 mmol/L (98-107); Glucose 100 mg/dL (74-99); HGB 12.4 gm/dL (11.4-16.0); Lipase 109 U/L (23-300); Non-African American GFR(CKD) 56 (>60 ml/min/1.73 sqM); Sodium 141 mmol/L (137-145); Total Bilirubin 0.3 mg/dL (0.2-1.3); Total Protein 6.4 g/dL (6.3-8.2)
[2023-07-31 22:00] LABS: Potassium 2.7 mmol/L (3.5-5.1)
--- NOTE | 2023-07-31 22:03 | CT ---
EXAMINATION TYPE: CT abdomen pelvis w con CT DLP: 802.8 mGycm, Automated exposure control for dose reduction was used. DATE OF EXAM: 07/31/2023 9:45 PM COMPARISON: CT abdomen pelvis most recent from 06/16/2023 CLINICAL INDICATION:Female, 47 years old with history of abdominal pain, recent surgery; h/o stomach ulcer sx, on 06/17/23, lower abdominal pain and vomiting TECHNIQUE: Axial CT abdomen pelvis w con;Sagittal and coronal reformats were created on a separate w orkstation. Contrast used:100 mL of Isovue 300 with IV Contrast, (none if empty) Oral contrast used: without Oral Contrast (none if empty) FINDINGS: LOWER CHEST: Unremarkable ABDOMEN LIVER: Unremarkable GALLBLADDER AND BILE DUCTS: Prominence of the main pancreatic duct and common bile duct at appreciate d on today's exam. The gallbladder is partially distended. PANCREAS: Unremarkable. SPLEEN: Unremarkable. ADRENAL GLANDS: Unremarkable. KIDNEYS AND URETERS: Mild left hydronephrosis secondary to ureteropelvic junction 7 mm x 5 mm calculu s. No right renal calculi. No right hydronephrosis. PELVIS BLADDER: Unremarkable REPRODUCTIVE: Intrauterine device seen within the endometrium. ABDOMEN & PELVIS STOMACH AND BOWEL: Ulcer repair changes with surgical clips present. No evidence of free air in the a bdomen. There is mild hyperemia of the dura duodenum mucosa series 201 image 34 and wall thickening s eries 202 image 30. No evidence of bowel obstruction. PERITONEUM/RETROPERITONEUM: No evidence of pneumoperitoneum or free fluid. VASCULATURE: No evidence of aortic aneurysm. MUSCULOSKELETAL: No acute osseous abnormalities. Moderate disc degeneration changes are present throu ghout the thoracolumbar spine. LYMPH NODES: No gross evidence for lymphadenopathy. SOFT TISSUE/ABDOMINAL WALL: Postsurgical changes anterior abdominal wall skin jermaine in place. IMPRESSION: 1. Hyperemia and wall thickening of the duodenum correlate for duodenitis. 2. Mild left hydronephrosis secondary to ureteropelvic junction 7 mm x 5 mm calculus. Calculus was i n similar position but there is less dilation of the upstream kidney collecting system. No right ambrocio l calculi. 3. Postsurgical repair changes to the prior duodenum/gastric antrum compared to prior exam on 2022. No evidence of free air or perforation on this exam. 4. IUD in place.
[2023-07-31] MEDS: HYDROmorphone 0.5 MG/0.5 ML SYRINGE IVP STA ×2 (22:05→23:22)
[2023-07-31] MEDS ORDERED: Potassium Replacement Protocol 1 EACH MISC MISCELLANE PRN (22:16)
[2023-07-31] MEDS ORDERED: NALOXONE 0.4 MG/ML 1 ML VIAL IV PRN (22:17)
--- NOTE | 2023-07-31 22:20 | ED ---
General Adult HPI - General Chief complaint: Abdominal Pain Stated complaint: abdominal pain Time Seen by Provider: 07/31/23 19:56 Source: patient, RN notes reviewed, old records reviewed Mode of arrival: ambulatory Limitations: no limitations - History of Present Illness Initial comments: Is a 47-year-old female presents emergency department complaining of abdominal pain, nausea, vomiting. Has a recent stomach surgery due to a perforated duodenal ulcer with Dr. Kaur. Has been having the symptoms for the last day. Presents for further evaluation. Has a history of polysubstance abuse. Denies any diarrhea or constipation. Denies any chest pain or shortness of breath. Has no other acute complaints at this time. Presents for further jarred luation over concern for the abdominal pain. States is primarily located around her [facility]. - Related Data Home Medications Medication Instructions Recorded Confirmed Sertraline HCl [Zoloft] 200 mg PO DAILY 11/16/18 06/15/23 busPIRone HCL [Buspar] 30 mg PO BID 01/21/20 06/15/23 buPROPion XL [Wellbutrin XL] 150 mg PO TID 05/16/20 06/15/23 Cholecalciferol [Vitamin D3 (25 150 mcg PO DAILY 06/03/23 06/15/23 Mcg = 1000 Iu)] Ketorolac [Toradol] 10 mg PO Q6H PRN 06/15/23 06/15/23 Ondansetron Odt [Zofran Odt] 4 mg PO Q8H PRN 06/15/23 06/15/23 oxyCODONE HCL [OxyIR] 5 mg PO Q4H PRN 06/15/23 06/15/23 Previous Rx's Medication Instructions Recorded Ferrous Sulfate [Iron (65 MG 325 mg PO BID-W/MEALS #60 tab 06/06/23 Elemental)] Metoprolol Tartrate [Lopressor] 12.5 mg PO BID #60 tab 06/06/23 Nicotine 21Mg/24Hr Patch [Habitrol] 1 patch TRANSDERM DAILY #7 patch 06/06/23 Omeprazole 20 mg PO BID #60 cap 06/06/23 Allergies Allergy/AdvReac Type Severity Reaction Status Date / Time Sulfa (Sulfonamide Allergy Rash/Hives Verified 06/15/23 13:41 Antibiotics) sulfamethoxazole Allergy Rash/Hives Verified 06/15/23 13:41 [From Bactrim] trimethoprim [From Bactrim] Allergy Rash/Hives Verified 06/15/23 13:41 Review of Systems ROS Statement: Those systems with pertinent positive or pertinent negative responses have been documented in the HPI. Review of Systems: CONST: Denies fever EYES: Denies blurry vision ENT: Denies nasal congestion C/V: Denies Chest pain RESP: Denies shortness of breath GI: Endorses abdominal pain : Denies dysuria SKIN: Denies rash. MSK: Denies joint pain. NEURO: Denies headache ROS Other: All systems not noted in ROS Statement are negative. Past Medical History Past Medical History: Pneumonia, Respiratory Disorder Additional Past Medical History / Comment(s): Polysubstane abuse, history of drug overdose, history of ARDS requiring intubation and mechanical ventilation, history of severe rhabdomyolysis and LUIS MIGUEL (recovered), history of MSSA pneumonia and sepsis, history of metabolic encephalopathy (recovered), history of depression, suicidal thoughts, suicide attempts, obesity. 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 Date of last positivie culture/infection: None MDRO Source:: nare Past Surgical History: No Surgical Hx Reported Additional Past Surgical History / Comment(s): breast biopsy (date unknown), trach placement and peg tube placement for ARDS Past Anesthesia/Blood Transfusion Reactions: No Reported Reaction Past Psychological History: Anxiety, Depression, PTSD Smoking Status: Current every day smoker Past Alcohol Use History: None Reported Past Drug Use History: None Reported - Past Family History Mother Family Medical History: No Reported History General Exam - General Exam Comments Initial Comments: General: Appears in no acute distress. HEAD: Normal with no signs of head trauma. EYES: PERRLA, EOMI, conjunctiva normal, no discharge. ENT: Hearing grossly intact, normal oropharynx. RESPIRATORY: Clear breath sounds bilaterally. No wheezes, rales, or rhonchi. C/V: Regular rate and rhythm. S1 and S2 auscultated, no edema, peripheral pulses 2+ and intact throughout ABD: Abdomen is soft, nondistended. Mildly tender to palpation periumbilically. No guarding. No rebound tenderness. No peritoneal signs. EXT: Normal range of motion, no obvious deformity SKIN: No rashes or lesions observed on exposed skin. NEURO: Alert and oriented x 4. Limitations: no limitations Course Vital Signs 07/31/23 19:15 Temperature 98.5 F Pulse Rate 107 H Respiratory 16 Rate Blood Pressure 163/101 O2 Sat by Pulse 100 Oximetry Medical Decision Making - Medical Decision Making Was pt. sent in by a medical professional or institution (MAGY Sheppard, SURGICAL PRODUCT SALES CONSULTANT, urgent care, hospital, or [facility]...) When possible be specific @ -No Did you speak to anyone other than the patient for history (EMS, parent, family, police, friend...)? What history was obtained from this source @ -No Did you review nursing and triage notes (agree or disagree)? Why? @ -I reviewed and agree with nursing and triage notes Were old charts reviewed (outside hosp., previous admission, EMS record, old EKG, old radiological studies, urgent care reports/EKG's, [facility] records)? Report findings @ -Old charts reviewed Differential Diagnosis (chest pain, altered mental status, abdominal pain women, abdominal pain men, vaginal bleeding, weakness, fever, dyspnea, syncope, headache, dizziness, GI bleed, back pain, seizure, CVA, palpatations, mental health, musculoskeletal)? @ -Differential Abdominal Pain Women: Appendicitis, Cholecystitis, diverticulosis, ischemic bowel, pancreatitis, hepatitis, UTI, gastroenteritis, AAA, incarcerated hernia, bowel obstruction, constipation, inflammatory bowel, hepatitis, peptic ulcer disease, splenic infarction, perforated viscus, vulvitis, ovarian torsion, PID, kidney stone, placenta abruption, this is not meant to be an all-inclusive list EKG interpreted by me (3pts min.). @ -As above X-rays interpreted by me (1pt min.). @ -None done CT interpreted by me (1pt min.). @ -CT reveals duodenitis as well as chronic left UPJ calculus which is unchanged from prior. Postop repair appears stable. U/S interpreted by me (1pt. min.). @ -None done What testing was considered but not performed or refused? (CT, X-rays, U/S, labs)? Why? @ -None What meds were considered but not given or refused? Why? @ -None Did you discuss the management of the patient with other professionals (professionals i.e. MAGY Sheppard, SURGICAL PRODUCT SALES CONSULTANT, lab, RT, psych nurse, social human services assistants, pipe fitter fire sprinkler systems, teacher, foreign service officer, case finisher)? Give summary @ -Discussed with Dr. Jolly who accepted the admission. Was smoking cessation discussed for >3mins.? @ -No Was critical care preformed (if so, how long)? @ -No Were there social determinants of health that impacted care today? How? (Homelessness, low income, unemployed, alcoholism, drug addiction, transportation, low edu. Level, literacy, decrease access to med. care, fpc, rehab)? @ -No Was there de-escalation of care discussed even if they declined (Discuss DNR or withdrawal of care, Hospice)? DNR status @ -No What co-morbidities impacted this encounter? (DM, HTN, Smoking, COPD, CAD, Cancer, CVA, ARF, Chemo, Hep., AIDS, mental health diagnosis, sleep apnea, morbid obesity)? @ -Duodenal ulcer repair Was patient admitted / discharged? Hospital course, mention meds given and route, prescriptions, significant lab abnormalities, going to OR and other pertinent info. @ -Based on patient's presentation and physical exam, presents with abdominal pain. We will obtain abdominal laboratory studies, CT imaging of the abdomen pelvis. She was in agreement this plan. Screening EKG will also be obtained. Vital signs within acceptable limits. Patient given 1 L fluid bolus, as well as IV analgesia, Protonix, Zofran. Labs are remarkable for a hypokalemia of 2.7. Remainder the labs within acceptable limits. CT imaging revealed no acute surgical process at this time but does show duodenitis. On reevaluation, I discussed results with patient. Due to the hypokalemia I do want admit the patient to the hospital. She was in agreement this plan. Potassium will be replenished. Patient will be evaluated by her surgeon, Dr. Kaur while she is here and consult was placed. Patient was in agreement this plan. I spoke with the admitting physician Dr. Jolly who accepted the admission. Undiagnosed new problem with uncertain prognosis? @ -No Drug Therapy requiring intensive monitoring for toxicity (Heparin, Nitro, Insulin, Cardizem)? @ -No Were any procedures done? @ -No Diagnosis/symptom? @ -Duodenitis, hypokalemia Acute, or Chronic, or Acute on Chronic? @ -Acute Uncomplicated (without systemic symptoms) or Complicated (systemic symptoms)? @ -Complicated Side effects of treatment? @ -No Exacerbation, Progression, or Severe Exacerbation? @ -No Poses a threat to life or bodily function? How? (Chest pain, USA, VT, pneumonia, PE, COPD, DKA, ARF, appy, cholecystitis, CVA, Diverticulitis, Homicidal, Suicidal, threat to staff... and all critical care pts) @ -Yes - Lab Data Result diagrams: 07/31/23 21:02 07/31/23 21:02 Lab Results 07/31/23 07/31/23 07/31/23 Range/Units 21:02 21:02 21:02 WBC 7.8 (3.8-10.6) k/uL RBC 4.17 (3.80-5.40) m/uL Hgb 12.4 D (11.4-16.0) gm/dL Hct 37.6 (34.0-46.0) % MCV 90.1 (80.0-100.0) fL MCH 29.8 (25.0-35.0) pg MCHC 33.1 (31.0-37.0) g/dL RDW 15.2 (11.5-15.5) % Plt Count 282 (150-450) k/uL MPV 8.1 Neutrophils % 65 % Lymphocytes % 29 % Monocytes % 4 % Eosinophils % 1 % Basophils % 0 % Neutrophils # 5.1 (1.3-7.7) k/uL Lymphocytes # 2.2 (1.0-4.8) k/uL Monocytes # 0.3 (0-1.0) k/uL Eosinophils # 0.1 (0-0.7) k/uL Basophils # 0.0 (0-0.2) k/uL PT 10.4 (10.0-12.5) sec INR 0.9 (<1.2) APTT 22.7 (22.0-30.0) sec Sodium 141 (137-145) mmol/L Potassium 2.7 L* (3.5-5.1) mmol/L Chloride 112 H (98-107) mmol/L Carbon Dioxide 22 (22-30) mmol/L Anion Gap 7 mmol/L BUN 11 (7-17) mg/dL Creatinine 1.17 H (0.52-1.04) mg/dL Est GFR (CKD-EPI)AfAm 64 (>60 ml/min/1.73 sqM) Est GFR (CKD-EPI)NonAf 56 (>60 ml/min/1.73 sqM) Glucose 100 H (74-99) mg/dL Plasma Lactic Acid Elie (0.7-2.0) mmol/L Calcium 9.1 (8.4-10.2) mg/dL Total Bilirubin 0.3 (0.2-1.3) mg/dL AST 18 (14-36) U/L ALT 10 (4-34) U/L Alkaline Phosphatase 77 (38-126) U/L Total Protein 6.4 (6.3-8.2) g/dL Albumin 3.3 L (3.5-5.0) g/dL Amylase 66 (30-110) U/L Lipase 109 (23-300) U/L 07/31/23 Range/Units 21:02 WBC (3.8-10.6) k/uL RBC (3.80-5.40) m/uL Hgb (11.4-16.0) gm/dL Hct (34.0-46.0) % MCV (80.0-100.0) fL MCH (25.0-35.0) pg MCHC (31.0-37.0) g/dL RDW (11.5-15.5) % Plt Count (150-450) k/uL MPV Neutrophils % % Lymphocytes % % Monocytes % % Eosinophils % % Basophils % % Neutrophils # (1.3-7.7) k/uL Lymphocytes # (1.0-4.8) k/uL Monocytes # (0-1.0) k/uL Eosinophils # (0-0.7) k/uL Basophils # (0-0.2) k/uL PT (10.0-12.5) sec INR (<1.2) APTT (22.0-30.0) sec Sodium (137-145) mmol/L Potassium (3.5-5.1) mmol/L Chloride (98-107) mmol/L Carbon Dioxide (22-30) mmol/L Anion Gap mmol/L BUN (7-17) mg/dL Creatinine (0.52-1.04) mg/dL Est GFR (CKD-EPI)AfAm (>60 ml/min/1.73 sqM) Est GFR (CKD-EPI)NonAf (>60 ml/min/1.73 sqM) Glucose (74-99) mg/dL Plasma Lactic Acid Elie 1.1 (0.7-2.0) mmol/L Calcium (8.4-10.2) mg/dL Total Bilirubin (0.2-1.3) mg/dL AST (14-36) U/L ALT (4-34) U/L Alkaline Phosphatase (38-126) U/L Total Protein (6.3-8.2) g/dL Albumin (3.5-5.0) g/dL Amylase (30-110) U/L Lipase (23-300) U/L - EKG Data -: EKG Interpreted by Me EKG Comments: 12-lead Electrocardiogram Interpretation Note EKG was reviewed and interpreted by myself. 12-lead ECG performed at 2020 is interpreted by me as revealing normal sinus rhythm at a rate of 83 beats per minute. [place] is normal. MA interval is 159 ms, QRS duration is 81 ms, QTc is 426 ms.. There were no ST or T wave abnormalities to suggest myocardial ischemia or injury. R wave progression across the precordium was satisfactory. By my interpretation this EKG is non-diagnostic for acute ischemia. Disposition Clinical Impression: Duodenitis, Hypokalemia Disposition: ADMITTED IP TO THIS HOSP Condition: Stable Referrals: Leandro Mendoza DO [Primary Care Provider] - 1-2 days Time of Disposition: 22:10
[2023-07-31] MEDS: POTASSIUM CHLORIDE ER 20 MEQ TAB.ER PO SCH (22:37)
[2023-07-31] MEDS: hydrALAZINE HCL 20 MG/ML 1 ML VIAL IVP STA (22:48)
[2023-07-31 22:49] LABS: Appearance,Urine Clear (Clear); Bilirubin,Urine Negative (Negative); Blood,Urine Trace (Negative); Color,Urine Colorless; Glucose,Urine (UA) Negative (Negative); Hyaline Casts,Urine 3 /lpf (0-2); Ketones,Urine Negative (Negative); Leukocyte Esterase,Urine Negative (Negative); Mucus,Urine Rare /hpf; Nitrite,Urine Negative (Negative); PH, Urine 6.5 (5.0-8.0); Protein,Urine Negative (Negative); RBC,Urine 13 /hpf (0-5); Specific Gravity,Urine 1.026 (1.001-1.035); Squamous Epithelial Cell,Urine 2 /hpf (0-4); Urobilinogen,Urine <2.0 mg/dL (<2.0); WBC,Urine 3 /hpf (0-5)
[2023-07-31] MEDS: LORazepam 2 MG/ML INJ IV STA (22:59)
[2023-07-31] MEDS ORDERED: ONDANSETRON ODT 4 MG TAB PO PRN (23:19)
[2023-08-01] MEDS: HYDROmorphone 0.5 MG/0.5 ML SYRINGE IVP PRN (02:17)
[2023-08-01] MEDS: hydrALAZINE HCL 20 MG/ML 1 ML VIAL IVP STA (02:21)
[2023-08-01] MEDS ORDERED: amLODIPine 5 MG TAB PO SCH (04:29)
[2023-08-01] MEDS: amLODIPine 10 MG TAB PO SCH (04:51)
[2023-08-01] MEDS: ONDANSETRON 4 MG/2 ML VIAL IVP PRN (05:19)
[2023-08-01] MEDS: PANTOPRAZOLE 40 MG TABLET PO SCH (07:53)
[2023-08-01] MEDS: MAGNESIUM OXIDE 400 MG TAB PO SCH (08:29)
[2023-08-01] MEDS: buPROPion XL 150 MG TAB.ER.24H PO SCH (08:29)
[2023-08-01] MEDS: SERTRALINE 100 MG TAB PO SCH (08:30)
[2023-08-01] MEDS: busPIRone HCl 10 MG TAB PO SCH (08:30)
[2023-08-01] MEDS: atenoloL 50 MG TAB PO SCH (08:37)
[2023-08-01] MEDS ORDERED: PANTOPRAZOLE 40 MG/10 ML VIAL IV SCH (09:00)
[2023-08-01 09:58] LABS: Basophils # (A) 0.1 k/uL (0-0.2); Basophils % (A) 1 %; Eosinophils # (A) 0.1 k/uL (0-0.7); Eosinophils % (A) 1 %; HCT 38.6 % (34.0-46.0); Hypochromasia Moderate; Lymphocytes # (A) 2.3 k/uL (1.0-4.8); Lymphocytes % (A) 24 %; MCH 29.3 pg (25.0-35.0); MCHC 31.2 g/dL (31.0-37.0); MCV 93.9 fL (80.0-100.0); Mean Platelet Volume 8.2; Monocytes # (A) 0.3 k/uL (0-1.0); Monocytes % (A) 3 %; Neutrophils # (A) 6.5 k/uL (1.3-7.7); Neutrophils % (A) 70 %; Platelet Count 280 k/uL (150-450); RDW 15.3 % (11.5-15.5); WBC 9.3 k/uL (3.8-10.6)
[2023-08-01 10:03] LABS: African American GFR (CKD) >90 (>60 ml/min/1.73 sqM); Anion Gap 8 mmol/L; Blood Urea Nitrogen 9 mg/dL (7-17); Calcium 8.8 mg/dL (8.4-10.2); Carbon Dioxide 17 mmol/L (22-30); Chloride 114 mmol/L (98-107); Glucose 99 mg/dL (74-99); Non-African American GFR(CKD) 88 (>60 ml/min/1.73 sqM); Potassium 3.5 mmol/L (3.5-5.1); Sodium 139 mmol/L (137-145)
[2023-08-01] MEDS ORDERED: Magnesium Replacement Protocol 1 EACH MISC MISCELLANE PRN (12:25)
[2023-08-01] MEDS ORDERED: Potassium Replacement Protocol 1 EACH MISC MISCELLANE PRN (12:25)
--- NOTE | 2023-08-01 12:28 | P.HPIM ---
History of Present Illness This is a pleasant 47 years old female with past medical history of recurrent duodenal ulcers with bleeding and possible perforation, she is s/p EGD and exploratory laparotomy with lysis of adhesions secondary to her duodenal ulcer. After the procedure patient still have bleeding issue and she was transferred last time to [facility] for higher level of care. This time presents with similar symptoms of epigastric abdominal pain and tenderness for the last 3-4 days. Her pain is about 10/10 as she sees edges of the incision site and redness all around the stomach. [place] like a crampy similar to last time. She's been taking ibuprofen pills 4-5 of them every day for the last 3 days and she's been vomiting 3 times since yesterday, no blood. No blood in stool and or black-colored No dizziness. No chest pain or dyspnea No urinary complaints, no headache dizziness weakness Pack per day and she was counseled to quit and she agrees but she declines nicotine patch. She was used marijuana but no alcohol Her vitals are stable, moderately tachycardic with heart rate 107, blood pressure 166/102 Earlier blood pressure was elevated 161/127 and she is on atenolol 100 mg at home, we added Norvasc 10 mg daily Hemoglobin is stable at 12.4, rest of CBC is unremarkable INR 0.9 Creatinine 1.1 with baseline 0.5-0.8. Potassium was low as 2.7 which is been replaced and emergency room. Repeat potassium this morning is 3.5 and creatinine improved down to baseline of 0.8 urine analysis is unremarkable for infection CT of abdomen and pelvis with contrast showing hyperemia of the duodenum suspicious for duodenitis with mild left hydronephrosis secondary to left ureteropelvic calculus 7 x 8 mm. Also patient with post surgical changes to gastric antrum and duodenum Ejection fraction was 55-60% on the 06/19/23 Patient placed on normal saline and Protonix and admitted for surgical team consult Review of Systems Review of systems CONSTITUTIONAL: No fever, no malaise, no fatigue. HEENT: No recent visual problems or hearing problems. Denied any sore throat. CARDIOVASCULAR: No orthopnea, PND, no palpitations, no syncope. PULMONARY: No shortness of breath, no cough, no hemoptysis. GASTROINTESTINAL: No diarrhea, no nausea, no vomiting, no abdominal pain. Normoactive bowel sounds. NEUROLOGICAL: No headaches, no weakness, no numbness. HEMATOLOGICAL: Denies any bleeding or petechiae. GENITOURINARY: Denies any burning micturition, frequency, or urgency. MUSCULOSKELETAL/RHEUMATOLOGICAL: Denies any joint pain, swelling, or any muscle pain. ENDOCRINE: Denies any polyuria or polydipsia. Past Medical History Past Medical History: Pneumonia, Respiratory Disorder Additional Past Medical History / Comment(s): Polysubstane abuse, history of drug overdose, history of ARDS requiring intubation and mechanical ventilation, history of severe rhabdomyolysis and LUIS MIGUEL (recovered), history of MSSA pneumonia and sepsis, history of metabolic encephalopathy (recovered), history of depression, suicidal thoughts, suicide attempts, obesity. 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 Past Anesthesia/Blood Transfusion Reactions: No Reported Reaction Past Psychological History: Anxiety, Depression, PTSD Additional Psychological History / Comment(s): 5 previous suicide attempts Smoking Status: Current every day smoker Past Alcohol Use History: None Reported Additional Past Alcohol Use History / Comment(s): The patient is a current smoke r for at least 20 years about 1/2pack a day. She denies any IV drug use. Past Drug Use History: None Reported Additional Drug Use History / Comment(s): occasional alcohol drinking, benzo's - Past Family History Mother Family Medical History: No Reported History Medications and Allergies Home Medications Medication Instructions Recorded Confirmed Type Sertraline HCl [Zoloft] 200 mg PO DAILY 11/16/18 07/31/23 History busPIRone HCL [Buspar] 30 mg PO BID 01/21/20 07/31/23 History buPROPion XL [Wellbutrin XL] 150 mg PO TID 05/16/20 07/31/23 History Cholecalciferol [Vitamin D3 (25 150 mcg PO DAILY 06/03/23 07/31/23 History Mcg = 1000 Iu)] Ondansetron Odt [Zofran Odt] 4 mg PO Q8H PRN 06/15/23 07/31/23 History Magnesium Oxide [Mag-Ox] 400 mg PO BID 07/31/23 07/31/23 History Pantoprazole [Protonix] 40 mg PO BID 07/31/23 07/31/23 History atenoloL 100 mg PO DAILY 07/31/23 07/31/23 History Allergies Allergy/AdvReac Type Severity Reaction Status Date / Time Sulfa (Sulfonamide Allergy Rash/Hives Verified 07/31/23 23:00 Antibiotics) sulfamethoxazole Allergy Rash/Hives Verified 07/31/23 23:00 [From Bactrim] trimethoprim [From Bactrim] Allergy Rash/Hives Verified 07/31/23 23:00 Physical Exam Vitals: Vital Signs Temp Pulse Resp BP Pulse Ox 08/01/23 08:33 107 H 20 160/102 97 08/01/23 06:15 90 16 156/97 93 L 08/01/23 05:54 93 16 161/107 92 L 08/01/23 03:27 178/119 07/31/23 23:59 105 H 18 161/127 98 07/31/23 22:45 86 16 99 07/31/23 19:15 98.5 F 107 H 16 163/101 100 Intake and Output 07/31/23 08/01/23 08/01/23 22:59 06:59 14:59 Other: Weight 77.111 kg GENERAL: The patient is alert and oriented x3, not in any acute distress. Well developed, well nourished. HEENT: Pupils are round and equally reacting to light. EOMI. No scleral icterus. No conjunctival pallor. Normocephalic, atraumatic. No pharyngeal erythema. No thyromegaly. CARDIOVASCULAR: S1 and S2 present. No murmurs, rubs, or gallops. PULMONARY: Chest is clear to auscultation, no wheezing , no crackles. -ABDOMEN: Soft, epigastric tenderness with no guarding or rebound tenderness, nondistended, normoactive bowel sounds. No palpable organomegaly. MUSCULOSKELETAL: No joint swelling or deformity. EXTREMITIES: No cyanosis, clubbing, or pedal edema. NEUROLOGICAL: Gross neurological examination did not reveal any focal deficits. SKIN: No rashes. no petechiae. Results CBC & Chem 7: 08/01/23 09:19 08/01/23 09:19 Labs: Abnormal Lab Results - Last 24 Hours (Table) 07/31/23 07/31/23 08/01/23 Range/Units 21:02 22:33 09:19 Potassium 2.7 L* (3.5-5.1) mmol/L Chloride 112 H 114 H (98-107) mmol/L Carbon Dioxide 17 L (22-30) mmol/L Creatinine 1.17 H (0.52-1.04) mg/dL Glucose 100 H (74-99) mg/dL Albumin 3.3 L (3.5-5.0) g/dL Urine Blood Trace H (Negative) Urine RBC 13 H (0-5) /hpf Hyaline Casts 3 H (0-2) /lpf Urine Mucus Rare H (None) /hpf Assessment and Plan Assessment: Acute duodenitis with recurrent duodenal ulcer Mild left hydronephrosis secondary to left ureteropelvic calculus 7 x 8 mm. Hypertension with urgency present on admission Mild acute kidney injury, resolved, hypokalemia resolved as well Nicotine dependence Substance abuse with marijuana Depression, currently not an active issue Plan: Continue with IV Protonix Avoid NSAIDs and ibuprofen/Motrin, patient counseled extensively and she agrees Continue with normal saline 75 mL/h Urology consult Check for procalcitonin Labs and medication were reviewed.. Continue same treatment. Continue with symptomatic treatment. Resume home medication. Monitor labs and vitals. DVT and GI prophylaxis. Further recommendations as per clinical course of the patient DVT prophylaxis: no Subcutaneous heparin, c/w SCD GI Prophylaxis: Ppi Prognosis is guarded
[2023-08-01] MEDS: PANTOPRAZOLE 40 MG/10 ML VIAL IVP SCH (12:52)
[2023-08-01] MEDS: ENALAPRILAT 1.25 MG/ML 1 ML VIAL IVP PRN (12:52)
[2023-08-01] MEDS: SODIUM CHLORIDE 0.9% 1,000 ML IV SCH (12:52)
[2023-08-01] MEDS: ACETAMINOPHEN TAB 325 MG TAB PO PRN (13:09)
[2023-08-01] MEDS: POTASSIUM CHLORIDE 20 MEQ in WATER FOR INJECTION 1 100ML.BAG IVPB STA (13:27)
--- NOTE | 2023-08-01 16:10 | P.GSCN ---
History of Present Illness Consult date: 08/01/23 History of present illness: CHIEF COMPLAINT: Abdominal pain HISTORY OF PRESENT ILLNESS: This is a 47-year-old female with a known history of chronic perforated duodenal ulcer. Her last perforation and was in June 17, 2023 she underwent an exploratory laparotomy, gastric lavage lysis of adhesions and intraoperative EGD confirming duodenal ulcer is completely sealed. Patient and then had GI bleed with bloody bowel movements and was transferred to [facility]. Patient believes she had EGD and possible cauterization at [facility]. Patient presents to the ER today with abdominal pain along the midline incision. There is no drainage from the incision site. She is having normal bowel movements. Does report some nausea and an episode of vomiting. No blood in the stools or emesis. Surgical service consulted for abdominal pain and vomiting. PAST MEDICAL HISTORY: See list. PAST SURGICAL HISTORY: See list. MEDICATIONS: See list. ALLERGIES: See list. SOCIAL HISTORY: No illicit drug use. REVIEW OF SYSTEMS: CONSTITUTIONAL: Denies fever or chills. HEENT: Denies blurred vision, vision changes, or eye pain. Denies hemoptysis ENDOCRINE: Denies heat or cold intolerance. CARDIOVASCULAR: Denies chest pain or pressure. RESPIRATORY: No shortness of breath. GASTROINTESTINAL: Please refer to HPI otherwise unremarkable NEURO: Denies history of seizures. PSYCH: No depression or suicidal ideation HEMATOLOGIC: Denies bleeding disorders. LYMPHATIC: The patient denies any lumps and bumps around the neck. GENITOURINARY: Denies any blood in urine or increased urinary frequency. MUSCULOSKELETAL: Denies myalgias. Denies joint swelling. Denies decreased range of motion beyond patients baseline. SKIN: Denies pruitis. Denies rash. PHYSICAL EXAM: VITAL SIGNS: Reviewed GENERAL: Well-developed in no acute distress. HEENT: No sclera icterus. Extraocular movements grossly intact. Moist buccal mucosa. Head is atraumatic, normocephalic. Hears conversational speech. No nasal drainage. NECK: Supple without lymphadenopathy. CHEST: Non-labored respirations and equal bilateral excursions. CARDIOVASCULAR: Palpable 2+ radial pulses. ABDOMEN: Soft. Nondistended. Mild tenderness along incision site. Incision site clean dry and intact and healed. No drainage. Jermaine are still present MUSCULOSKELETAL: No clubbing or cyanosis. NEUROLOGIC: No focal or lateralizing signs. Cranial nerves II through XII grossly intact. PSYCH: Appropriate affect. Alert and oriented to person, place and time. SKIN: Well perfused. Good skin turgor. LABORATORY DATA: WBC is 9.3 Hgb 12 platelets 280 Sodium is 139 potassium 2.7-3.5 creatinine 0.80 LFTs normal lipase normal Urinalysis negative for infection IMAGING: CT scan abdomen and pelvis reports hyperemia and wall thickening of the duodenum correlate for duodenitis. Mild left hydronephrosis secondary to ureteropelvic junction 7 mm x 5 mm calculus postsurgical repair changes to prior duodenum/gastric antrum compared to prior exam. No free air or perforation on exam. ASSESSMENT: 1. Abdominal pain at incision site 2. History of chronic perforated duodenal ulcer 3. Hypokalemia 4. Acute kidney injury 5. 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 Signing provider agrees with the documented findings, assessment, and plan of care. Past Medical History Past Medical History: Pneumonia, Respiratory Disorder Additional Past Medical History / Comment(s): Polysubstane abuse, history of drug overdose, history of ARDS requiring intubation and mechanical ventilation, history of severe rhabdomyolysis and LUIS MIGUEL (recovered), history of MSSA pneumonia and sepsis, history of metabolic encephalopathy (recovered), history of depression, suicidal thoughts, suicide attempts, obesity. 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 Past Anesthesia/Blood Transfusion Reactions: No Reported Reaction Past Psychological History: Anxiety, Depression, PTSD Additional Psychological History / Comment(s): 5 previous suicide attempts Smoking Status: Current every day smoker Past Alcohol Use History: None Reported Additional Past Alcohol Use History / Comment(s): The patient is a current smoker for at least 20 years about 1/2pack a day. She denies any IV drug use. Past Drug Use History: None Reported Additional Drug Use History / Comment(s): occasional alcohol drinking, benzo's - Past Family History Mother Family Medical History: No Reported History Medications and Allergies Home Medications Medication Instructions Recorded Confirmed Type Sertraline HCl [Zoloft] 200 mg PO DAILY 11/16/18 07/31/23 History busPIRone HCL [Buspar] 30 mg PO BID 01/21/20 07/31/23 History buPROPion XL [Wellbutrin XL] 150 mg PO TID 05/16/20 07/31/23 History Cholecalciferol [Vitamin D3 (25 150 mcg PO DAILY 06/03/23 07/31/23 History Mcg = 1000 Iu)] Ondansetron Odt [Zofran Odt] 4 mg PO Q8H PRN 06/15/23 07/31/23 History Magnesium Oxide [Mag-Ox] 400 mg PO BID 07/31/23 07/31/23 History Pantoprazole [Protonix] 40 mg PO BID 07/31/23 07/31/23 History atenoloL 100 mg PO DAILY 07/31/23 07/31/23 History Allergies Allergy/AdvReac Type Severity Reaction Status Date / Time Sulfa (Sulfonamide Allergy Rash/Hives Verified 07/31/23 23:00 Antibiotics) sulfamethoxazole Allergy Rash/Hives Verified 07/31/23 23:00 [From Bactrim] trimethoprim [From Bactrim] Allergy Rash/Hives Verified 07/31/23 23:00 Surgical - Exam Vital Signs Temp Pulse Resp BP Pulse Ox 98.5 F 107 H 16 163/101 100 07/31/23 19:15 07/31/23 19:15 07/31/23 19:15 07/31/23 19:15 07/31/23 19:15 Results - Labs 08/01/23 09:19 08/01/23 09:19 Abnormal Lab Results - Last 24 Hours (Table) 07/31/23 07/31/23 08/01/23 Range/Units 21:02 22:33 09:19 Potassium 2.7 L* (3.5-5.1) mmol/L Chloride 112 H 114 H (98-107) mmol/L Carbon Dioxide 17 L (22-30) mmol/L Creatinine 1.17 H (0.52-1.04) mg/dL Glucose 100 H (74-99) mg/dL Albumin 3.3 L (3.5-5.0) g/dL Urine Blood Trace H (Negative) Urine RBC 13 H (0-5) /hpf Hyaline Casts 3 H (0-2) /lpf Urine Mucus Rare H (None) /hpf Diabetes panel 07/31/23 08/01/23 Range/Units 21:02 09:19 Sodium 141 139 (137-145) mmol/L Potassium 2.7 L* 3.5 (3.5-5.1) mmol/L Chloride 112 H 114 H (98-107) mmol/L Carbon Dioxide 22 17 L (22-30) mmol/L BUN 11 9 (7-17) mg/dL Creatinine 1.17 H 0.80 (0.52-1.04) mg/dL Glucose 100 H 99 (74-99) mg/dL Calcium 9.1 8.8 (8.4-10.2) mg/dL AST 18 (14-36) U/L ALT 10 (4-34) U/L Alkaline Phosphatase 77 (38-126) U/L Total Protein 6.4 (6.3-8.2) g/dL Albumin 3.3 L (3.5-5.0) g/dL Calcium panel 07/31/23 08/01/23 Range/Units 21:02 09:19 Calcium 9.1 8.8 (8.4-10.2) mg/dL Albumin 3.3 L (3.5-5.0) g/dL Pituitary panel 07/31/23 08/01/23 Range/Units 21:02 09:19 Sodium 141 139 (137-145) mmol/L Potassium 2.7 L* 3.5 (3.5-5.1) mmol/L Chloride 112 H 114 H (98-107) mmol/L Carbon Dioxide 22 17 L (22-30) mmol/L BUN 11 9 (7-17) mg/dL Creatinine 1.17 H 0.80 (0.52-1.04) mg/dL Glucose 100 H 99 (74-99) mg/dL Calcium 9.1 8.8 (8.4-10.2) mg/dL Adrenal panel 07/31/23 08/01/23 Range/Units 21:02 09:19 Sodium 141 139 (137-145) mmol/L Potassium 2.7 L* 3.5 (3.5-5.1) mmol/L Chloride 112 H 114 H (98-107) mmol/L Carbon Dioxide 22 17 L (22-30) mmol/L BUN 11 9 (7-17) mg/dL Creatinine 1.17 H 0.80 (0.52-1.04) mg/dL Glucose 100 H 99 (74-99) mg/dL Calcium 9.1 8.8 (8.4-10.2) mg/dL Total Bilirubin 0.3 (0.2-1.3) mg/dL AST 18 (14-36) U/L ALT 10 (4-34) U/L Alkaline Phosphatase 77 (38-126) U/L Total Protein 6.4 (6.3-8.2) g/dL Albumin 3.3 L (3.5-5.0) g/dL
--- NOTE | 2023-08-01 18:37 | P.GSCN ---
History of Present Illness Consult date: 08/01/23 Reason for Consult: Left ureteral calculus Requesting physician: George E Sheet History of present illness: The patient is a 47-year-old white female who underwent ureteroscopic removal of a left proximal ureteral calculus in [place] [address] Oakes. She has undergone exploratory laparotomy with repair of a perforated duodenal ulcer in February 2023 and again in June 17, 2023. She now presents with central ab dominal pain, associated with nausea and vomiting. She denies flank pain. Review of Systems - Gastrointestinal Reports abdominal pain, Reports nausea, Reports vomiting - Genitourinary Genitourinary: Reports kidney stones, Denies dysuria, Denies flank pain, Denies hematuria Past Medical History Past Medical History: Pneumonia, Respiratory Disorder Additional Past Medical History / Comment(s): Polysubstane abuse, history of drug overdose, history of ARDS requiring intubation and mechanical ventilation, history of severe rhabdomyolysis and LUIS MIGUEL (recovered), history of MSSA pneumonia and sepsis, history of metabolic encephalopathy (recovered), history of depression, suicidal thoughts, suicide attempts, obesity. 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 Past Anesthesia/Blood Transfusion Reactions: No Reported Reaction Past Psychological History: Anxiety, Depression, PTSD Additional Psychological History / Comment(s): 5 previous suicide attempts Smoking Status: Current every day smoker Past Alcohol Use History: None Reported Additional Past Alcohol Use History / Comment(s): The patient is a current smoker for at least 20 years about 1/2pack a day. She denies any IV drug use. Past Drug Use History: None Reported Additional Drug Use History / Comment(s): occasional alcohol drinking, benzo's - Past Family History Mother Family Medical History: No Reported History Medications and Allergies Home Medications Medication Instructions Recorded Confirmed Type Sertraline HCl [Zoloft] 200 mg PO DAILY 11/16/18 07/31/23 History busPIRone HCL [Buspar] 30 mg PO BID 01/21/20 07/31/23 History buPROPion XL [Wellbutrin XL] 150 mg PO TID 05/16/20 07/31/23 History Cholecalciferol [Vitamin D3 (25 150 mcg PO DAILY 06/03/23 07/31/23 History Mcg = 1000 Iu)] Ondansetron Odt [Zofran Odt] 4 mg PO Q8H PRN 06/15/23 07/31/23 History Magnesium Oxide [Mag-Ox] 400 mg PO BID 07/31/23 07/31/23 History Pantoprazole [Protonix] 40 mg PO BID 07/31/23 07/31/23 History atenoloL 100 mg PO DAILY 07/31/23 07/31/23 History Allergies Allergy/AdvReac Type Severity Reaction Status Date / Time Sulfa (Sulfonamide Allergy Rash/Hives Verified 07/31/23 23:00 Antibiotics) sulfamethoxazole Allergy Rash/Hives Verified 07/31/23 23:00 [From Bactrim] trimethoprim [From Bactrim] Allergy Rash/Hives Verified 07/31/23 23:00 Surgical - Exam Vital Signs Temp Pulse Resp BP Pulse Ox 98.5 F 107 H 16 163/101 100 07/31/23 19:15 07/31/23 19:15 07/31/23 19:15 07/31/23 19:15 07/31/23 19:15 - General well developed, well nourished, no distress - Respiratory normal respiratory effort - Abdomen Soft, non-distended. Surgical jermaine remain in place over a midline scar. There is no CVA tenderness. - Psychiatric oriented to time, oriented to person, oriented to place, speech is normal, memory intact Results - Labs 08/01/23 09:19 08/01/23 09:19 Abnormal Lab Results - Last 24 Hours (Table) 07/31/23 07/31/23 08/01/23 Range/Units 21:02 22:33 09:19 Potassium 2.7 L* (3.5-5.1) mmol/L Chloride 112 H 114 H (98-107) mmol/L Carbon Dioxide 17 L (22-30) mmol/L Creatinine 1.17 H (0.52-1.04) mg/dL Glucose 100 H (74-99) mg/dL Albumin 3.3 L (3.5-5.0) g/dL Urine Blood Trace H (Negative) Urine RBC 13 H (0-5) /hpf Hyaline Casts 3 H (0-2) /lpf Urine Mucus Rare H (None) /hpf Diabetes panel 07/31/23 08/01/23 Range/Units 21:02 09:19 Sodium 141 139 (137-145) mmol/L Potassium 2.7 L* 3.5 (3.5-5.1) mmol/L Chloride 112 H 114 H (98-107) mmol/L Carbon Dioxide 22 17 L (22-30) mmol/L BUN 11 9 (7-17) mg/dL Creatinine 1.17 H 0.80 (0.52-1.04) mg/dL Glucose 100 H 99 (74-99) mg/dL Calcium 9.1 8.8 (8.4-10.2) mg/dL AST 18 (14-36) U/L ALT 10 (4-34) U/L Alkaline Phosphatase 77 (38-126) U/L Total Protein 6.4 (6.3-8.2) g/dL Albumin 3.3 L (3.5-5.0) g/dL Calcium panel 07/31/23 08/01/23 Range/Units 21:02 09:19 Calcium 9.1 8.8 (8.4-10.2) mg/dL Albumin 3.3 L (3.5-5.0) g/dL Pituitary panel 07/31/23 08/01/23 Range/Units 21:02 09:19 Sodium 141 139 (137-145) mmol/L Potassium 2.7 L* 3.5 (3.5-5.1) mmol/L Chloride 112 H 114 H (98-107) mmol/L Carbon Dioxide 22 17 L (22-30) mmol/L BUN 11 9 (7-17) mg/dL Creatinine 1.17 H 0.80 (0.52-1.04) mg/dL Glucose 100 H 99 (74-99) mg/dL Calcium 9.1 8.8 (8.4-10.2) mg/dL Adrenal panel 07/31/23 08/01/23 Range/Units 21:02 09:19 Sodium 141 139 (137-145) mmol/L Potassium 2.7 L* 3.5 (3.5-5.1) mmol/L Chloride 112 H 114 H (98-107) mmol/L Carbon Dioxide 22 17 L (22-30) mmol/L BUN 11 9 (7-17) mg/dL Creatinine 1.17 H 0.80 (0.52-1.04) mg/dL Glucose 100 H 99 (74-99) mg/dL Calcium 9.1 8.8 (8.4-10.2) mg/dL Total Bilirubin 0.3 (0.2-1.3) mg/dL AST 18 (14-36) U/L ALT 10 (4-34) U/L Alkaline Phosphatase 77 (38-126) U/L Total Protein 6.4 (6.3-8.2) g/dL Albumin 3.3 L (3.5-5.0) g/dL - Imaging CT scan - abdomen: report reviewed, image reviewed Assessment and Plan (1) Ureterolithiasis Current Visit: No Status: Acute Code(s): N20.1 - CALCULUS OF URETER SNOMED Code(s): 67676454 (2) Hydronephrosis with renal and ureteral calculous obstruction Current Visit: Yes Status: Acute Code(s): N13.2 - HYDRONEPHROSIS WITH RENAL AND URETERAL CALCULOUS OBSTRUCTION SNOMED Code(s): 035088869 Plan: The patient has mild left hydronephrosis due to a 5x7 mm left proximal ureteral calculus. Her pain is not typical of renal colic, and is more likely due to recent issues pertaining to her duodenal ulcer. I would consider placing a left ureteral stent to relieve obstruction. However, the patient appears to have a history of noncompliance and I am concerned about placing a stent and the stent becoming calcified if she fails to follow-up. I will continue to follow her with you. Time with Patient: Greater than 30
[2023-08-01] MEDS: HEPARIN SODIUM,PORCINE 5,000 UNIT/ML 1 ML VIAL SQ SCH (21:34)
[2023-08-01] MEDS: LORazepam 2 MG/ML INJ IV STA (22:18)
[2023-08-01] MEDS: diphenhydrAMINE 50 MG/ML 1 ML VIAL IVP STA (22:20)
--- NOTE | 2023-08-02 07:28 | P.PN ---
Subjective This is a pleasant 47 years old female with past medical history of recurrent duodenal ulcers with bleeding and possible perforation, she is s/p EGD and exploratory laparotomy with lysis of adhesions secondary to her duodenal ulcer. After the procedure patient still have bleeding issue and she was transferred last time to [facility] for higher level of care. This time presents with similar symptoms of epigastric abdominal pain and ten derness for the last 3-4 days. Her pain is about 10/10 as she sees edges of the incision site and redness all around the stomach. [place] like a crampy similar to last time. She's been taking ibuprofen pills 4-5 of them every day for the last 3 days and she's been vomiting 3 times since yesterday, no blood. No blood in stool and or black-colored No dizziness. No chest pain or dyspnea No urinary complaints, no headache dizziness weakness Pack per day and she was counseled to quit and she agrees but she declines nicotine patch. She was used marijuana but no alcohol Her vitals are stable, moderately tachycardic with heart rate 107, blood pressure 166/102 Earlier blood pressure was elevated 161/127 and she is on atenolol 100 mg at home, we added Norvasc 10 mg daily Hemoglobin is stable at 12.4, rest of CBC is unremarkable INR 0.9 Creatinine 1.1 with baseline 0.5-0.8. Potassium was low as 2.7 which is been replaced and emergency room. Repeat potassium this morning is 3.5 and creatinine improved down to baseline of 0.8 urine analysis is unremarkable for infection CT of abdomen and pelvis with contrast showing hyperemia of the duodenum suspicious for duodenitis with mild left hydronephrosis secondary to left ureteropelvic calculus 7 x 8 mm. Also patient with post surgical changes to gastric antrum and duodenum Ejection fraction was 55-60% on the 06/19/23 Patient placed on normal saline and Protonix and admitted for surgical team consult 08/02/2023 Patient fully awake and oriented, lying in bed in no distress Patient admitted with abdominal pain and tenderness secondary to the denied this with history of recurrent duodenal ulcers evidence also on CAT scan of the abdomen done on admission. Patient currently monitored closely on IV Protonix. Also patient was taking ibuprofen prior to admission which is held now inpatient consult avoid NSAIDs and she agrees. This morning patient's wants to eat regular diet, she doesn't want to consider even soft diet when I ask her and she feels better. No bowel movement yet. But she is passing gases. She is on normal saline at 50 mL per hour Blood pressure with urgency presents yesterday significantly improved today at 169/68 Potassium yesterday was 3.5. And creatinine back to baseline 0.8 Repeat labs are pending Patient might be considered for downgraded to general medical floor today if she remains stable and improving neurologist recommended the stent for her kidney stone and mild hydronephrosis however complains an issue and needed to assess the benefits and risk Objective - Vital Signs Vital signs: Vital Signs Temp 98 F 08/02/23 04:00 Pulse 57 L 08/02/23 04:00 Resp 18 08/02/23 04:00 BP 109/68 08/02/23 04:00 Pulse Ox 93 L 08/02/23 04:00 FiO2 Intake & Output 08/01/23 08/02/23 08/02/23 18:59 06:59 18:59 Intake Total 660 Balance 660 Weight 77.111 kg Intake: Oral 660 Other: Voiding Method Toilet # Voids 1 4 - Exam GENERAL: The patient is alert and oriented x3, not in any acute distress. Well developed, well nourished. HEENT: Pupils are round and equally reacting to light. EOMI. No scleral icterus. No conjunctival pallor. Normocephalic, atraumatic. No pharyngeal erythema. No thyromegaly. CARDIOVASCULAR: S1 and S2 present. No murmurs, rubs, or gallops. PULMONARY: Chest is clear to auscultation, no wheezing , no crackles. -ABDOMEN: Soft,epigastric pain and tenderness, no guarding , nondistended, normoactive bowel sounds. No palpable organomegaly. MUSCULOSKELETAL: No joint swelling or deformity. EXTREMITIES: No cyanosis, clubbing, or pedal edema. NEUROLOGICAL: Gross neurological examination did not reveal any focal deficits. SKIN: No rashes. no petechiae. - Labs CBC & Chem 7: 08/01/23 09:19 08/01/23 09:19 Labs: Abnormal Lab Results - Last 24 Hours (Table) 08/01/23 Range/Units 09:19 Chloride 114 H (98-107) mmol/L Carbon Dioxide 17 L (22-30) mmol/L Assessment and Plan Assessment: Acute duodenitis with recurrent duodenal ulcer Mild left hydronephrosis secondary to left ureteropelvic calculus 7 x 8 mm. Hypertension with urgency present on admission Mild acute kidney injury, resolved, hypokalemia resolved as well Nicotine dependence Substance abuse with marijuana Depression, currently not an active issue Plan: Continue with IV Protonix Avoid NSAIDs and ibuprofen/Motrin, patient counseled extensively and she agrees Continue with normal saline 50 mL/h Urology consult Check for procalcitonin pending Patient was advanced her diet to regular Labs and medication were reviewed.. Continue same treatment. Continue with symptomatic treatment. Resume home medication. Monitor labs and vitals. DVT and GI prophylaxis. Further recommendations as per clinical course of the patient DVT prophylaxis: resume Subcutaneous heparin, c/w SCD GI Prophylaxis: Ppi Prognosis is guarded
[2023-08-02] MEDS: HYDROmorphone 0.5 MG/0.5 ML SYRINGE IVP PRN (08:36)
--- NOTE | 2023-08-02 08:44 | P.PN ---
Subjective Progress Note Date: 08/02/23 Principal diagnosis: Left ureteral calculus Patient was admitted with abdominal pain. Her history has been complicated as she has required exploratory laparotomy with repair of duodenal hernia on 2 occasions in the past [address] scan shows a left proximal ureteral calculus resulting in mild left hydronephrosis, but her symptoms are not consistent with renal colic. She states that she is feeling somewhat better today. Objective - Vital Signs Vital signs: Vital Signs Temp 97.7 F 08/02/23 08:04 Pulse 60 08/02/23 08:04 Resp 18 08/02/23 08:04 BP 129/80 08/02/23 08:04 Pulse Ox 95 08/02/23 08:04 FiO2 Intake & Output 08/01/23 08/02/23 08/02/23 18:59 06:59 18:59 Intake Total 660 Balance 660 Weight 77.111 kg Intake: Oral 660 Other: Voiding Method Toilet # Voids 1 4 - Constitutional General appearance: Present: average body habitus, cooperative - Psychiatric Psychiatric: Present: A&O x's 3 - Labs CBC & Chem 7: 08/01/23 09:19 08/01/23 09:19 Labs: Abnormal Lab Results - Last 24 Hours (Table) 08/01/23 Range/Units 09:19 Chloride 114 H (98-107) mmol/L Carbon Dioxide 17 L (22-30) mmol/L Assessment and Plan (1) Ureterolithiasis Current Visit: No Status: Acute Code(s): N20.1 - CALCULUS OF URETER SNOMED Code(s): 07242749 (2) Hydronephrosis with renal and ureteral calculous obstruction Current Visit: Yes Status: Acute Code(s): N13.2 - HYDRONEPHROSIS WITH RENAL AND URETERAL CALCULOUS OBSTRUCTION SNOMED Code(s): 442352349 Plan: The patient has mild left hydronephrosis due to a 5x7 mm left proximal ureteral calculus. Her pain is not typical of renal colic, and is more likely due to recent issues pertaining to her duodenal ulcer. I am reluctant to place a left ureteral stent as she appears to have a history of noncompliance and I am concerned about placing a stent and the stent becoming calcified if she fails to follow-up. A KUB x-ray will be obtained to determine whether or not the calculus is visible on a plain radiograph. It would be my recommendation that she follow-up with Dr. Oakes as an outpatient, and I intend to perform surgical intervention only if she develops intractable symptoms.
[2023-08-02 08:45] LABS: Basophils # (A) 0.1 k/uL (0-0.2); Basophils % (A) 1 %; Eosinophils # (A) 0.1 k/uL (0-0.7); Eosinophils % (A) 2 %; HCT 32.8 % (34.0-46.0); HGB 10.1 gm/dL (11.4-16.0); Hypochromasia Marked; Lymphocytes # (A) 2.1 k/uL (1.0-4.8); Lymphocytes % (A) 34 %; MCH 29.4 pg (25.0-35.0); MCHC 30.8 g/dL (31.0-37.0); MCV 95.5 fL (80.0-100.0); Mean Platelet Volume 8.5; Monocytes # (A) 0.3 k/uL (0-1.0); Monocytes % (A) 4 %; Neutrophils # (A) 3.4 k/uL (1.3-7.7); Neutrophils % (A) 57 %; Platelet Count 235 k/uL (150-450); RBC 3.43 m/uL (3.80-5.40)
[2023-08-02 08:50] LABS: African American GFR (CKD) 81 (>60 ml/min/1.73 sqM); Anion Gap 7 mmol/L; Blood Urea Nitrogen 12 mg/dL (7-17); Calcium 8.6 mg/dL (8.4-10.2); Carbon Dioxide 16 mmol/L (22-30); Chloride 117 mmol/L (98-107); Glucose 71 mg/dL (74-99); Magnesium 1.9 mg/dL (1.6-2.3); Non-African American GFR(CKD) 70 (>60 ml/min/1.73 sqM); Potassium 3.4 mmol/L (3.5-5.1); Sodium 140 mmol/L (137-145)
[2023-08-02] MEDS: POTASSIUM CHLORIDE ER 20 MEQ TAB.ER PO SCH (10:47)
--- NOTE | 2023-08-02 12:03 | XR ---
EXAMINATION TYPE: XR KUB DATE OF EXAM: 08/02/2023 11:14 AM CLINICAL INDICATION:Female, 47 years old with history of Left ureteral calculus; COMPARISON: CT 07/31/2023 TECHNIQUE: One radiographic view of the abdomen was obtained. FINDINGS: The bowel gas pattern is nonspecific without dilated loops of small or large bowel. There i s no evidence for organomegaly or pneumoperitoneum. The osseous structures are intact calculus seen on CT not well appreciated on radiography. Fecal material and gas are demonstrated throughout the col on and rectum. IUD is present. IMPRESSION: Calculus at the left ureteropelvic junction not well appreciated on radiography.
--- NOTE | 2023-08-02 16:01 | P.PN ---
Subjective Progress Note Date: 08/02/23 CHIEF COMPLAINT: Abdominal pain HISTORY OF PRESENT ILLNESS: Patient has known chronic abdominal pain. She reports that her pain is feeling better today. She had 1 episode of vomiting last night. This has resolved. Denies any bowel movements. Tolerated liquids this morning. Afebrile. WBC is 6 hemoglobin 10.1 platelets 235 sodium is 140 potassium is 3.4 creatinine 0.97 magnesium 1.9 jermaine removed from incision PHYSICAL EXAM: VITAL SIGNS: Reviewed. GENERAL: Well-developed in no acute distress. HEENT: No sclera icterus. Extraocular movements grossly intact. Moist buccal mucosa. Head is atraumatic, normocephalic. ABDOMEN: Soft. Nondistended. Nontender. Incision site clean dry and intact. [place] removed. No drainage. NEUROLOGIC: Alert and oriented. Cranial nerves II through XII grossly intact. ASSESSMENT: 1. Chronic abdominal pain 2. Duodenitis noted on CT with wall thickening of the duodenum 3. History of chronic perforated duodenal ulcer status post exploratory lapar otomy, gastric lavage lysis of adhesions and intraoperative EGD confirming duodenal ulcer is completely sealed on June 17, 2023 4. Hypokalemia 5. Acute kidney injury 6. History of polysubstance abuse PLAN: -No surgical intervention planned -Agree with advancing diet to regular -Continue to replace potassium -Encourage patient to ambulate -Continue PPI Physician [employer] note has been reviewed by physician. Signing provider agrees with the documented findings, assessment, and plan of care. Objective - Vital Signs Vital signs: Vital Signs Temp 97.7 F 08/02/23 08:04 Pulse 60 08/02/23 08:04 Resp 18 08/02/23 08:04 BP 129/80 08/02/23 08:04 Pulse Ox 95 08/02/23 08:04 FiO2 Intake & Output 08/01/23 08/02/23 08/02/23 18:59 06:59 18:59 Intake Total 660 Balance 660 Weight 77.111 kg Intake: Oral 660 Other: Voiding Method Toilet # Voids 1 4 - Labs CBC & Chem 7: 08/02/23 07:10 08/02/23 07:10 Labs: Abnormal Lab Results - Last 24 Hours (Table) 08/02/23 08/02/23 Range/Units 07:10 07:10 RBC 3.43 L (3.80-5.40) m/uL Hgb 10.1 L (11.4-16.0) gm/dL Hct 32.8 L (34.0-46.0) % MCHC 30.8 L (31.0-37.0) g/dL Potassium 3.4 L (3.5-5.1) mmol/L Chloride 117 H (98-107) mmol/L Carbon Dioxide 16 L (22-30) mmol/L Glucose 71 L (74-99) mg/dL
[2023-08-02] MEDS: TEMAZEPAM 7.5 MG CAP PO PRN (21:10)
[2023-08-03 07:59] LABS: Basophils % (A) 1 %; Eosinophils # (A) 0.1 k/uL (0-0.7); Eosinophils % (A) 3 %; HCT 29.3 % (34.0-46.0); HGB 9.4 gm/dL (11.4-16.0); Hypochromasia Slight; Lymphocytes # (A) 2.1 k/uL (1.0-4.8); Lymphocytes % (A) 41 %; MCH 29.6 pg (25.0-35.0); MCHC 32.2 g/dL (31.0-37.0); Mean Platelet Volume 8.3; Monocytes # (A) 0.2 k/uL (0-1.0); Monocytes % (A) 4 %; Neutrophils # (A) 2.7 k/uL (1.3-7.7); Neutrophils % (A) 51 %; Platelet Count 213 k/uL (150-450); RBC 3.19 m/uL (3.80-5.40); RDW 15.1 % (11.5-15.5); WBC 5.2 k/uL (3.8-10.6)
[2023-08-03 08:19] LABS: African American GFR (CKD) 77 (>60 ml/min/1.73 sqM); Anion Gap 4 mmol/L; Blood Urea Nitrogen 11 mg/dL (7-17); Calcium 8.2 mg/dL (8.4-10.2); Carbon Dioxide 19 mmol/L (22-30); Chloride 115 mmol/L (98-107); Glucose 77 mg/dL (74-99); Magnesium 1.8 mg/dL (1.6-2.3); Non-African American GFR(CKD) 67 (>60 ml/min/1.73 sqM); Potassium 3.3 mmol/L (3.5-5.1); Sodium 138 mmol/L (137-145)
--- NOTE | 2023-08-03 11:29 | P.PN ---
Subjective Progress Note Date: 08/03/23 Principal diagnosis: Left ureteral calculus Patient was admitted with abdominal pain. Her history has been complicated as she has required exploratory laparotomy with repair of duodenal hernia on 2 occasions in the past [address] scan shows a left proximal ureteral calculus resulting in mild left hydronephrosis, but her symptoms are not consistent with renal colic. She states that she is feeling better and hopes to be discharged home. Objective - Vital Signs Vital signs: Vital Signs Temp 98.4 F 08/03/23 00:00 Pulse 60 08/03/23 00:00 Resp 16 08/03/23 00:00 BP 105/70 08/03/23 00:00 Pulse Ox 92 L 08/03/23 00:00 FiO2 Intake & Output 08/02/23 08/03/23 08/03/23 18:59 06:59 18:59 Intake Total 240 200 Balance 240 200 Weight 92.5 kg Intake: Intake, IV Titration 200 Amount Sodium Chloride 0.9% 1, 200 000 ml @ 50 mls/hr IV . Q20H [facility] Rx#:[id number] Oral 240 Other: Voiding Method Toilet # Voids 2 1 - Constitutional General appearance: Present: average body habitus, cooperative, no acute distress - Psychiatric Psychiatric: Present: A&O x's 3 - Labs CBC & Chem 7: 08/03/23 06:24 08/03/23 06:24 Labs: Abnormal Lab Results - Last 24 Hours (Table) 08/02/23 08/02/23 08/03/23 Range/Units 07:10 07:10 06:24 RBC 3.43 L 3.19 L (3.80-5.40) m/uL Hgb 10.1 L 9.4 L (11.4-16.0) gm/dL Hct 32.8 L 29.3 L (34.0-46.0) % MCHC 30.8 L (31.0-37.0) g/dL Potassium 3.4 L (3.5-5.1) mmol/L Chloride 117 H (98-107) mmol/L Carbon Dioxide 16 L (22-30) mmol/L Glucose 71 L (74-99) mg/dL Assessment and Plan (1) Ureterolithiasis Current Visit: No Status: Acute Code(s): N20.1 - CALCULUS OF URETER SNOMED Code(s): 21592864 (2) Hydronephrosis with renal and ureteral calculous obstruction Current Visit: Yes Status: Acute Code(s): N13.2 - HYDRONEPHROSIS WITH RENAL AND URETERAL CALCULOUS OBSTRUCTION SNOMED Code(s): 053525930 Plan: The patient has mild left hydronephrosis due to a 5x7 mm left proximal ureteral calculus. Her pain is not typical of renal colic, and is more likely due to recent issues pertaining to her duodenal ulcer. I am reluctant to place a left ureteral stent as she appears to have a history of noncompliance and I am concerned about placing a stent and the stent becoming calcified if she fails to follow-up. The calculus cannot be visualized on a KUB x-ray. I have advised the patient to follow-up with Dr. Oakes as an outpatient. Please notify me if I can be of any further assistance during this hospitalization.
[2023-08-03] MEDS: POTASSIUM CHLORIDE ER 20 MEQ TAB.ER PO SCH (12:27)
[2023-08-03] MEDS: HYDROmorphone 0.5 MG/0.5 ML SYRINGE IVP PRN (17:45)
--- NOTE | 2023-08-03 17:57 | P.PN ---
Subjective This is a pleasant 47 years old female with past medical history of recurrent duodenal ulcers with bleeding and possible perforation, she is s/p EGD and exploratory laparotomy with lysis of adhesions secondary to her duodenal ulcer. After the procedure patient still have bleeding issue and she was transferred last time to [facility] for higher level of care. This time presents with similar symptoms of epigastric abdominal pain and ten derness for the last 3-4 days. Her pain is about 10/10 as she sees edges of the incision site and redness all around the stomach. [place] like a crampy similar to last time. She's been taking ibuprofen pills 4-5 of them every day for the last 3 days and she's been vomiting 3 times since yesterday, no blood. No blood in stool and or black-colored No dizziness. No chest pain or dyspnea No urinary complaints, no headache dizziness weakness Pack per day and she was counseled to quit and she agrees but she declines nicotine patch. She was used marijuana but no alcohol Her vitals are stable, moderately tachycardic with heart rate 107, blood pressure 166/102 Earlier blood pressure was elevated 161/127 and she is on atenolol 100 mg at home, we added Norvasc 10 mg daily Hemoglobin is stable at 12.4, rest of CBC is unremarkable INR 0.9 Creatinine 1.1 with baseline 0.5-0.8. Potassium was low as 2.7 which is been replaced and emergency room. Repeat potassium this morning is 3.5 and creatinine improved down to baseline of 0.8 urine analysis is unremarkable for infection CT of abdomen and pelvis with contrast showing hyperemia of the duodenum suspicious for duodenitis with mild left hydronephrosis secondary to left ureteropelvic calculus 7 x 8 mm. Also patient with post surgical changes to gastric antrum and duodenum Ejection fraction was 55-60% on the 06/19/23 Patient placed on normal saline and Protonix and admitted for surgical team consult 08/02/2023 Patient fully awake and oriented, lying in bed in no distress Patient admitted with abdominal pain and tenderness secondary to the denied this with history of recurrent duodenal ulcers evidence also on CAT scan of the abdomen done on admission. Patient currently monitored closely on IV Protonix. Also patient was taking ibuprofen prior to admission which is held now inpatient consult avoid NSAIDs and she agrees. This morning patient's wants to eat regular diet, she doesn't want to consider even soft diet when I ask her and she feels better. No bowel movement yet. But she is passing gases. She is on normal saline at 50 mL per hour Blood pressure with urgency presents yesterday significantly improved today at 169/68 Potassium yesterday was 3.5. And creatinine back to baseline 0.8 Repeat labs are pending Patient might be considered for downgraded to general medical floor today if she remains stable and improving neurologist recommended the stent for her kidney stone and mild hydronephrosis however complains an issue and needed to assess the benefits and risk 08/03/2023 Patient abdominal pain is improving rated at 7/10 today, she tolerates diet. Patient herself asking if she can go home today but she agrees to stay for now Low potassium and magnesium replaced Continue with Protonix patient required to follow up outpatient with Dr. Alfaro and Dr. Oakes urologist as an outpatient, she was informed and she is agreeable Objective - Vital Signs Vital signs: Vital Signs Temp 98.6 F 08/03/23 07:10 Pulse 68 08/03/23 07:10 Resp 16 08/03/23 07:10 BP 133/84 08/03/23 07:10 Pulse Ox 95 08/03/23 07:10 FiO2 Intake & Output 08/02/23 08/03/23 08/03/23 18:59 06:59 18:59 Intake Total 240 200 Balance 240 200 Weight 92.5 kg Intake: Intake, IV Titration 200 Amount Sodium Chloride 0.9% 1, 200 000 ml @ 50 mls/hr IV . Q20H [facility] Rx#:[id number] Oral 240 Other: Voiding Method Toilet Toilet # Voids 2 1 2 - Exam GENERAL: The patient is alert and oriented x3, not in any acute distress. Well developed, well nourished. HEENT: Pupils are round and equally reacting to light. EOMI. No scleral icterus. No conjunctival pallor. Normocephalic, atraumatic. No pharyngeal erythema. No thyromegaly. CARDIOVASCULAR: S1 and S2 present. No murmurs, rubs, or gallops. PULMONARY: Chest is clear to auscultation, no wheezing , no crackles. -ABDOMEN: Soft,epigastric pain and tenderness, no guarding , nondistended, normoactive bowel sounds. No palpable organomegaly. MUSCULOSKELETAL: No joint swelling or deformity. EXTREMITIES: No cyanosis, clubbing, or pedal edema. NEUROLOGICAL: Gross neurological examination did not reveal any focal deficits. SKIN: No rashes. no petechiae. - Labs CBC & Chem 7: 08/03/23 06:24 08/03/23 16:30 Labs: Abnormal Lab Results - Last 24 Hours (Table) 08/03/23 08/03/23 Range/Units 06:24 06:24 RBC 3.19 L (3.80-5.40) m/uL Hgb 9.4 L (11.4-16.0) gm/dL Hct 29.3 L (34.0-46.0) % Potassium 3.3 L (3.5-5.1) mmol/L Chloride 115 H (98-107) mmol/L Carbon Dioxide 19 L (22-30) mmol/L Calcium 8.2 L (8.4-10.2) mg/dL Assessment and Plan Assessment: Acute duodenitis with recurrent duodenal ulcer Mild left hydronephrosis secondary to left ureteropelvic calculus 7 x 8 mm. Hypertension with urgency present on admission Mild acute kidney injury, resolved, hypokalemia resolved as well Nicotine dependence Substance abuse with marijuana Depression, currently not an active issue Plan: Continue with IV Protonix Avoid NSAIDs and ibuprofen/Motrin, patient counseled extensively and she agrees Continue with normal saline 50 mL/h Urology consult Check for procalcitonin pending Patient was advanced her diet to regular Labs and medication were reviewed.. Continue same treatment. Continue with symptomatic treatment. Resume home medication. Monitor labs and vitals. DVT and GI prophylaxis. Further recommendations as per clinical course of the patient DVT prophylaxis: resume Subcutaneous heparin, c/w SCD GI Prophylaxis: Ppi Prognosis is guarded
[2023-08-03] MEDS ORDERED: POTASSIUM CHLORIDE ER 20 MEQ TAB.ER PO SCH (18:00)
[2023-08-03] MEDS: POTASSIUM CHLORIDE ER 20 MEQ TAB.ER PO STA (18:24)
[2023-08-03] MEDS: MAGNESIUM SULFATE-D5W PMX 1 GM in DEXTROSE/WATER 1 100ML.BAG IVPB ONE (18:25)
[2023-08-04 09:57] LABS: Magnesium 2.1 mg/dL (1.5-2.4)
--- NOTE | 2023-08-04 14:35 | P.PN ---
Subjective This is a pleasant 47 years old female with past medical history of recurrent duodenal ulcers with bleeding and possible perforation, she is s/p EGD and exploratory laparotomy with lysis of adhesions secondary to her duodenal ulcer. After the procedure patient still have bleeding issue and she was transferred last time to [facility] for higher level of care. This time presents with similar symptoms of epigastric abdominal pain and ten derness for the last 3-4 days. Her pain is about 10/10 as she sees edges of the incision site and redness all around the stomach. [place] like a crampy similar to last time. She's been taking ibuprofen pills 4-5 of them every day for the last 3 days and she's been vomiting 3 times since yesterday, no blood. No blood in stool and or black-colored No dizziness. No chest pain or dyspnea No urinary complaints, no headache dizziness weakness Pack per day and she was counseled to quit and she agrees but she declines nicotine patch. She was used marijuana but no alcohol Her vitals are stable, moderately tachycardic with heart rate 107, blood pressure 166/102 Earlier blood pressure was elevated 161/127 and she is on atenolol 100 mg at home, we added Norvasc 10 mg daily Hemoglobin is stable at 12.4, rest of CBC is unremarkable INR 0.9 Creatinine 1.1 with baseline 0.5-0.8. Potassium was low as 2.7 which is been replaced and emergency room. Repeat potassium this morning is 3.5 and creatinine improved down to baseline of 0.8 urine analysis is unremarkable for infection CT of abdomen and pelvis with contrast showing hyperemia of the duodenum suspicious for duodenitis with mild left hydronephrosis secondary to left ureteropelvic calculus 7 x 8 mm. Also patient with post surgical changes to gastric antrum and duodenum Ejection fraction was 55-60% on the 06/19/23 Patient placed on normal saline and Protonix and admitted for surgical team consult 08/02/2023 Patient fully awake and oriented, lying in bed in no distress Patient admitted with abdominal pain and tenderness secondary to the denied this with history of recurrent duodenal ulcers evidence also on CAT scan of the abdomen done on admission. Patient currently monitored closely on IV Protonix. Also patient was taking ibuprofen prior to admission which is held now inpatient consult avoid NSAIDs and she agrees. This morning patient's wants to eat regular diet, she doesn't want to consider even soft diet when I ask her and she feels better. No bowel movement yet. But she is passing gases. She is on normal saline at 50 mL per hour Blood pressure with urgency presents yesterday significantly improved today at 169/68 Potassium yesterday was 3.5. And creatinine back to baseline 0.8 Repeat labs are pending Patient might be considered for downgraded to general medical floor today if she remains stable and improving neurologist recommended the stent for her kidney stone and mild hydronephrosis however complains an issue and needed to assess the benefits and risk 08/03/2023 Patient abdominal pain is improving rated at 7/10 today, she tolerates diet. Patient herself asking if she can go home today but she agrees to stay for now Low potassium and magnesium replaced Continue with Protonix patient required to follow up outpatient with Dr. Alfaro and Dr. Oakes urologist as an outpatient, she was informed and she is agreeable 08/04/23 Patient improving slowly and gradually Still epigastric abdominal pain and tenderness, improving,and out her Dilaudid, currently every 6 hours Patient's wants to go home, I told her we need to check her hemoglobin tomorrow because was opened she agrees to stay Continue with antiacids Protonix She needs follow-up with urologist for her stent soon . She is informed and agrees Objective - Vital Signs Vital signs: Vital Signs Temp 98.1 F 08/04/23 13:35 Pulse 58 L 08/04/23 13:35 Resp 18 08/04/23 13:35 BP 144/92 08/04/23 13:35 Pulse Ox 97 08/04/23 13:35 FiO2 Intake & Output 08/03/23 08/04/23 08/04/23 18:59 06:59 18:59 Intake Total 240 500 Balance 240 500 Weight 72 kg Intake: Intake, IV Titration 500 Amount Sodium Chloride 0.9% 1, 500 000 ml @ 50 mls/hr IV . Q20H [facility] Rx#:[id number] Oral 240 Other: Voiding Method Toilet Toilet Toilet # Voids 3 1 - Exam GENERAL: The patient is alert and oriented x3, not in any acute distress. Well developed, well nourished. HEENT: Pupils are round and equally reacting to light. EOMI. No scleral icterus. No conjunctival pallor. Normocephalic, atraumatic. No pharyngeal erythema. No thyromegaly. CARDIOVASCULAR: S1 and S2 present. No murmurs, rubs, or gallops. PULMONARY: Chest is clear to auscultation, no wheezing , no crackles. -ABDOMEN: Soft,epigastric pain and tenderness, no guarding , nondistended, no rmoactive bowel sounds. No palpable organomegaly. MUSCULOSKELETAL: No joint swelling or deformity. EXTREMITIES: No cyanosis, clubbing, or pedal edema. NEUROLOGICAL: Gross neurological examination did not reveal any focal deficits. SKIN: No rashes. no petechiae. - Labs CBC & Chem 7: 08/03/23 06:24 08/04/23 06:53 Assessment and Plan Assessment: Acute duodenitis with recurrent duodenal ulcer Mild left hydronephrosis secondary to left ureteropelvic calculus 7 x 8 mm. Hypertension with urgency present on admission Mild acute kidney injury, resolved, hypokalemia resolved as well Nicotine dependence Substance abuse with marijuana Depression, currently not an active issue Plan: Continue with IV Protonix Avoid NSAIDs and ibuprofen/Motrin, patient counseled extensively and she agrees Continue with normal saline 50 mL/h Urology consult Check for procalcitonin pending Patient was advanced her diet to regular Labs and medication were reviewed.. Continue same treatment. Continue with symptomatic treatment. Resume home medication. Monitor labs and vitals. DVT and GI prophylaxis. Further recommendations as per clinical course of the patient DVT prophylaxis: resume Subcutaneous heparin, c/w SCD GI Prophylaxis: Ppi Prognosis is guarded
[2023-08-04] MEDS: POTASSIUM CHLORIDE ER 20 MEQ TAB.ER PO SCH (16:17)
[2023-08-04] MEDS: diphenhydrAMINE 25 MG CAP PO ONE (21:13)
[2023-08-05 08:03] VITALS: BP 110/74; PULSE 59; RESP 17; TEMP 98.8
--- NOTE | 2023-08-05 08:12 | P.PN ---
Subjective Progress Note Date: 08/05/23 Patient is in the hospital for abdominal pain. This pain may be related to previous surgery and scar tissue from her duodenal ulcer surgery. The patient has a known history of stones and has passing a 5 mm left ureteral stone but is relatively asymptomatic from this. She is not having any pain today. Objective - Vital Signs Vital signs: Vital Signs Temp 98.8 F 08/05/23 07:14 Pulse 59 L 08/05/23 07:14 Resp 17 08/05/23 07:14 BP 110/74 08/05/23 07:14 Pulse Ox 93 L 08/05/23 07:14 FiO2 Intake & Output 08/04/23 08/05/23 08/05/23 18:59 06:59 18:59 Intake Total 800 Balance 800 Weight 71.6 kg Intake: IV 300 Sodium Chloride 0.9% 1, 300 000 ml @ 50 mls/hr IV . Q20H [facility] Rx#:[id number] Intake, IV Titration 500 Amount Sodium Chloride 0.9% 1, 500 000 ml @ 50 mls/hr IV . Q20H [facility] Rx#:[id number] Other: Voiding Method Toilet Toilet # Voids 2 2 - Labs CBC & Chem 7: 08/03/23 06:24 08/04/23 06:53 Assessment and Plan Assessment: Impression: History of ureteral calculi. Left ureteral calculus, 5 mm identified recently. Recommendations: Patient is asymptomatic urologically. We will give her chance of passing spontaneously. I reviewed her x-rays and can see the stone on this computed tomography scan in faintly on the KUB. She should follow-up in our office if she is not having any pain. She's having pain will have to deal [place].
[2023-08-05 08:28] LABS: HCT 30.6 % (37.2-46.3); HGB 9.4 g/dL (12.0-15.0); MCH 28.4 pg (27.0-32.0); MCHC 30.7 g/dL (32.0-37.0); MCV 92.4 FL (80.0-97.0); NRBC Per 100 WBC 0 X 10*3/uL (0.00-0.01); Platelet Count 215 X 10*3/uL (140-440); RBC 3.31 X 10*6/uL (4.10-5.20); RDW 14.6 % (11.5-14.5); WBC 4.52 X 10*3/uL (4.50-10.00)
[2023-08-05 08:47] LABS: Magnesium 1.9 mg/dL (1.5-2.4); Potassium 3.6 mmol/L (3.5-5.5)
[2023-08-05] MEDS: NICOTINE 21MG/24HR PATCH TRANSDERM SCH (10:26)
--- NOTE | 2023-08-05 11:54 | P.DS ---
Providers Date of admission: 07/31/23 22:19 Expected date of discharge: 08/05/23 Attending physician: George Jolly MD Consults: 07/31/23 22:17 Consult Physician Routine Consulting Provider: Francine Kaur Consult Reason/Comments: abd pain, n/v Do you want consulting provider notified?: Yes 08/01/23 09:40 Consult Physician Routine Consulting Provider: Benji Oakes Consult Reason/Comments: mild hydronephrosis and stone Do you want consulting provider notified?: Yes Primary care physician: [facility] Course: 47 years old female with past medical history of recurrent duodenal ulcers with bleeding and possible perforation, she is s/p EGD and exploratory laparotomy with lysis of adhesions secondary to her duodenal ulcer. After the procedure patient still have bleeding issue and she was transferred last time to [facility] for higher level of care. This time presents with similar symptoms of epigastric abdominal pain and tenderness for the last 3-4 days. Her pain is about 10/10 as she sees edges of the incision site and redness all around the stomach. [place] like a crampy similar to last time. She's been taking ibuprofen pills 4-5 of them every day for the last 3 days and she's been vomiting 3 times since yesterday, no blood. No blood in stool and or black-colored No dizziness. No chest pain or dyspnea No urinary complaints, no headache dizziness weakness Pack per day and she was counseled to quit and she agrees but she declines nicotine patch. She was used marijuana but no alcohol Her vitals are stable, moderately tachycardic with heart rate 107, blood pressure 166/102 Earlier blood pressure was elevated 161/127 and she is on atenolol 100 mg at home, we added Norvasc 10 mg daily Hemoglobin is stable at 12.4, rest of CBC is unremarkable INR 0.9 Creatinine 1.1 with baseline 0.5-0.8. Potassium was low as 2.7 which is been replaced and emergency room. Repeat potassium this morning is 3.5 and creatinine improved down to baseline of 0.8 urine analysis is unremarkable for infection CT of abdomen and pelvis with contrast showing hyperemia of the duodenum suspicious for duodenitis with mild left hydronephrosis secondary to left ureteropelvic calculus 7 x 8 mm. Also patient with post surgical changes to gastric antrum and duodenum Ejection fraction was 55-60% on the 06/19/23 Patient placed on normal saline and Protonix and admitted for surgical team consult 08/02/2023 Patient fully awake and oriented, lying in bed in no distress Patient admitted with abdominal pain and tenderness secondary to the denied this with history of recurrent duodenal ulcers evidence also on CAT scan of the abdomen done on admission. Patient currently monitored closely on IV Protonix. Also patient was taking ibuprofen prior to admission which is held now inpatient consult avoid NSAIDs and she agrees. This morning patient's wants to eat regular diet, she doesn't want to consider even soft diet when I ask her and she feels better. No bowel movement yet. But she is passing gases. She is on normal saline at 50 mL per hour Blood pressure with urgency presents yesterday significantly improved today at 169/68 Potassium yesterday was 3.5. And creatinine back to baseline 0.8 Repeat labs are pending Patient might be considered for downgraded to general medical floor today if she remains stable and improving neurologist recommended the stent for her kidney stone and mild hydronephrosis however complains an issue and needed to assess the benefits and risk 08/03/2023 Patient abdominal pain is improving rated at 7/10 today, she tolerates diet. Patient herself asking if she can go home today but she agrees to stay for now Low potassium and magnesium replaced Continue with Protonix patient required to follow up outpatient with Dr. Alfaro and Dr. Oakes urologist as an outpatient, she was informed and she is agreeable 08/04/23 Patient improving slowly and gradually Still epigastric abdominal pain and tenderness, improving,and out her Dilaudid, currently every 6 hours Patient's wants to go home, I told her we need to check her hemoglobin tomorrow because was opened she agrees to stay Continue with antiacids Protonix She needs follow-up with urologist for her stent soon . She is informed and agrees 08/05/1023: DR BOUCHER ASSUMED CARE Patient seen and evaluated bedside, upon evaluation patient was requesting discharge. Patient was notified that her diet needs to be advanced and she would need GI evaluation patient refused GI intervention or evaluation. Patient was also explained that she needs to strain her urine. Patient to be discharged home to be given Bryson for pain control Flomax ordered as well. Patient threatening to leave AGAINST MEDICAL ADVICE however we will discharge her home with outpatient follow-up with urology GENERAL: The patient is alert and oriented x3, not in any acute distress. Well developed, well nourished. HEENT: Pupils are round and equally reacting to light. EOMI. CARDIOVASCULAR: S1 and S2 present. No murmurs, rubs, or gallops. PULMONARY: Chest is clear to auscultation, no wheezing , no crackles. -ABDOMEN: Soft,epigastric pain and tenderness, no guarding , nondistended, normoactive bowel sounds. No palpable organomegaly. MUSCULOSKELETAL: No joint swelling or deformity. EXTREMITIES: No cyanosis, clubbing, or pedal edema. NEUROLOGICAL: Gross neurological examination did not reveal any focal deficits. SKIN: No rashes. no petechiae. Assessment and plan Acute duodenitis with recurrent duodenal ulcer Mild left hydronephrosis secondary to left ureteropelvic calculus 7 x 8 mm. Hypertension with urgency present on admission Mild acute kidney injury, resolved, hypokalemia resolved as well Nicotine dependence Substance abuse with marijuana Depression, currently not an active issue * In regards to duodenitis, patient was seen by surgery, we were planning gastroenterology evaluation however patient refused and requested discharge on 08/05/2023. Patient to be discharged on Protonix as well as Carafate. Outpatient follow-up with urology and general surgery recommended outpatient follow-up with primary care physician * In regards to left hydronephrosis and ureteral stone seen by urology outpatient follow-up recommended patient placed on Flomax, given pain medicine * In regards to acute renal failure kidney function back at baseline potassium improved * Patient discharged home with recommendations to come back to the emergency for recurrent symptoms Patient Condition at Discharge: Fair Plan - Discharge Summary New Discharge Prescriptions: New Tamsulosin [Flomax] 0.4 mg PO DAILY 7 Days #7 cap Sucralfate [Carafate] 1 gm PO QID 5 Days #200 ml HYDROcodone/APAP 5-325MG [[place] 5-325] 1 tab PO Q6HR PRN 3 Days #12 tab PRN Reason: Pain Continue Sertraline HCl [Zoloft] 200 mg PO DAILY busPIRone HCL [Buspar] 30 mg PO BID buPROPion XL [Wellbutrin XL] 150 mg PO TID Cholecalciferol [Vitamin D3 (25 Mcg = 1000 Iu)] 150 mcg PO DAILY atenoloL 100 mg PO DAILY Magnesium Oxide [Mag-Ox] 400 mg PO BID Pantoprazole [Protonix] 40 mg PO BID 30 Days #60 tab Ondansetron Odt [Zofran ODT] 4 mg PO Q8H PRN 3 Days #9 tab PRN Reason: Nausea And Vomiting Discharge Medication List Sertraline HCl [Zoloft] 200 mg PO DAILY 11/16/18 [History] busPIRone HCL [Buspar] 30 mg PO BID 01/21/20 [History] buPROPion XL [Wellbutrin XL] 150 mg PO TID 05/16/20 [History] Cholecalciferol [Vitamin D3 (25 Mcg = 1000 Iu)] 150 mcg PO DAILY 06/03/23 [History] Magnesium Oxide [Mag-Ox] 400 mg PO BID 07/31/23 [History] atenoloL 100 mg PO DAILY 07/31/23 [History] HYDROcodone/APAP 5-325MG [[place] 5-325] 1 tab PO Q6HR PRN 3 Days #12 tab 08/05/23 [Rx] Ondansetron Odt [Zofran ODT] 4 mg PO Q8H PRN 3 Days #9 tab 08/05/23 [Rx] Pantoprazole [Protonix] 40 mg PO BID 30 Days #60 tab 08/05/23 [Rx] Sucralfate [Carafate] 1 gm PO QID 5 Days #200 ml 08/05/23 [Rx] Tamsulosin [Flomax] 0.4 mg PO DAILY 7 Days #7 cap 08/05/23 [Rx] Follow up Appointment(s)/Referral(s): Francine Kaur MD [STAFF PHYSICIAN] - 2 Weeks Leandro Mendoza DO [Primary Care Provider] - 1-2 days Benji Oakes MD [STAFF PHYSICIAN] - 2 Weeks Activity/Diet/Wound Care/Special Instructions: Strain urine. Discharge Disposition: HOME SELF-CARE
--- NOTE | 2023-08-05 15:12 | P.PN ---
Subjective Progress Note Date: 08/05/23 CHIEF COMPLAINT: History of perforated duodenal ulcer HISTORY OF PRESENT ILLNESS: The patient is a 47-year-old female who 3 months ago had perforated duodenal ulcer recurrent. She has been able to tolerate diet. Pain control. ROS: No reports of nausea and vomiting. No bowel movements. No fevers or chills. No new chest pain. No productive sputum PHYSICAL EXAM: VITAL SIGNS: Reviewed CONSTITUTIONAL: Well developed and in no acute distress. EYES: Conjuctivae without sclera icterus. Extraocular movements grossly intact. HEAD, EARS, NOSE, THROAT: Moist buccal mucosa. Head is atraumatic, n ormocephalic. Hears conversational speech. No nasal drainage. RESPIRATORY: Non-labored respirations and equal bilateral excursions. CARDIOVASCULAR: Palpable 2+ radial pulses. ABDOMEN: Staple discontinued. No peritonitis. MUSCULOSKELETAL: No gross deformity of the lower extremities noted. No c lubbing. No cyanosis. SKIN: Good skin turgor. Well perfused. NEUROLOGIC: Cranial nerves II through XII grossly intact. No focal or lateralizing signs. PSYCH: Appropriate affect. Alert and oriented to person, place and time. CLINICAL LABS: Reviewed. Hemoglobin stable 9.4. ASSESSMENT: 1. History of perforated duodenal ulcer with hematemesis. 2. History of GI bleed. PLAN: 1. Strict tobacco cessation described to prevent recurrent duodenal ulcer 2. Overall, stable from surgical Stamper for discharge Objective - Vital Signs Vital signs: Vital Signs Temp 98.8 F 08/05/23 07:14 Pulse 59 L 08/05/23 09:04 Resp 17 08/05/23 09:04 BP 110/74 08/05/23 07:14 Pulse Ox 93 L 08/05/23 07:14 FiO2 Intake & Output 08/04/23 08/05/23 08/05/23 18:59 06:59 18:59 Intake Total 800 Balance 800 Weight 71.6 kg Intake: IV 300 Sodium Chloride 0.9% 1, 300 000 ml @ 50 mls/hr IV . Q20H CATHY Rx#:[id number] Intake, IV Titration 500 Amount Sodium Chloride 0.9% 1, 500 000 ml @ 50 mls/hr IV . Q20H CATHY Rx#:[id number] Other: Voiding Method Toilet Toilet Toilet # Voids 2 2 2 - Labs CBC & Chem 7: 08/05/23 05:49 08/05/23 05:49 Labs: Abnormal Lab Results - Last 24 Hours (Table) 08/05/23 Range/Units 05:49 RBC 3.31 L (4.10-5.20) X 10*6/uL Hgb 9.4 L (12.0-15.0) g/dL Hct 30.6 L (37.2-46.3) % MCHC 30.7 L (32.0-37.0) g/dL RDW 14.6 H (11.5-14.5) %
== END 2023-08-05 13:10 | disposition home or self-care (01) | DRG 465 ==
LOC: EC 19:00 → 3SCARD 22:19 → OBSVTOIN 22:19 → 3SCARD 23:01 → 4SSUR 08-02 18:49
PROVIDERS: ADMIT Internal Medicine; ATTEND Internal Medicine
DX: N13.2 Hydronephrosis with renal and ureteral calculous obstruction (principal); N17.9 Acute kidney failure, unspecified; F19.11 Other psychoactive substance abuse, in remission; K26.7 Chronic duodenal ulcer without hemorrhage or perforation; I10 Essential (primary) hypertension; I16.0 Hypertensive urgency; F32.A Depression, unspecified; F17.210 Nicotine dependence, cigarettes, uncomplicated; E87.6 Hypokalemia; G89.29 Other chronic pain; Z87.442 Personal history of urinary calculi; Z79.899 Other long term (current) drug therapy; Z88.2 Allergy status to sulfonamides; Z88.1 Allergy status to other antibiotic agents; Z86.14 Personal history of Methicillin resistant Staphylococcus aureus infection; Z91.51 Personal history of suicidal behavior
CPT/HCPCS: 36415; 74018; 74177; 80048; 80053; 81001; 82150; 83605; 83690; 83735; 84132; 85025; 85027; 85610; 85730; 93005; 96361; 96374; 96375; 96376; 99285

== ENCOUNTER 2023-10-04 16:24 | Inpatient (IN) | payer OTHER ==
--- NOTE | 2023-10-04 17:30 | ED ---
General Adult HPI - General Chief complaint: Altered Mental Status Stated complaint: Altered mental status Time Seen by Provider: 10/04/23 17:10 Source: patient, family, RN notes reviewed, old records reviewed Mode of arrival: ambulatory Limitations: altered mental status - History of Present Illness Initial comments: Patient is a 47-year-old female presenting to the emergency department for change in mental status. Patient's daughter called patient's parents this morning. Father went over and found patient sleeping all morning. This was for a couple of hours. They received another call and went to evaluate her prior to arrival. They found patient in the current state that she has right now. Patient is awake and alert. Patient will not talk or answer any questions. - Related Data Home Medications Medication Instructions Recorded Confirmed Sertraline HCl [Zoloft] 200 mg PO DAILY 11/16/18 07/31/23 busPIRone HCL [Buspar] 30 mg PO BID 01/21/20 07/31/23 buPROPion XL [Wellbutrin XL] 150 mg PO TID 05/16/20 07/31/23 Cholecalciferol [Vitamin D3 (25 150 mcg PO DAILY 06/03/23 07/31/23 Mcg = 1000 Iu)] Magnesium Oxide [Mag-Ox] 400 mg PO BID 07/31/23 07/31/23 atenoloL 100 mg PO DAILY 07/31/23 07/31/23 Previous Rx's Medication Instructions Recorded HYDROcodone/APAP 5-325MG [[place] 1 tab PO Q6HR PRN 3 Days #12 tab 08/05/23 5-325] Ondansetron Odt [Zofran ODT] 4 mg PO Q8H PRN 3 Days #9 tab 08/05/23 Pantoprazole [Protonix] 40 mg PO BID 30 Days #60 tab 08/05/23 Sucralfate [Carafate] 1 gm PO QID 5 Days #200 ml 08/05/23 Tamsulosin [Flomax] 0.4 mg PO DAILY 7 Days #7 cap 08/05/23 Allergies Allergy/AdvReac Type Severity Reaction Status Date / Time Sulfa (Sulfonamide Allergy Rash/Hives Verified 07/31/23 23:00 Antibiotics) sulfamethoxazole Allergy Rash/Hives Verified 07/31/23 23:00 [From Bactrim] trimethoprim [From Bactrim] Allergy Rash/Hives Verified 07/31/23 23:00 Review of Systems ROS Statement: Those systems with pertinent positive or pertinent negative responses have been documented in the HPI. ROS Other: All systems not noted in ROS Statement are negative. Limitations: ROS unobtainable due to patients medical condition Past Medical History Past Medical History: Pneumonia, Respiratory Disorder Additional Past Medical History / Comment(s): Polysubstane abuse, history of drug overdose, history of ARDS requiring intubation and mechanical ventilation, history of severe rhabdomyolysis and LUIS MIGUEL (recovered), history of MSSA pneumonia and sepsis, history of metabolic encephalopathy (recovered), history of depression, suicidal thoughts, suicide attempts, obesity. 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 Past Anesthesia/Blood Transfusion Reactions: No Reported Reaction Past Psychological History: Anxiety, Depression, PTSD Smoking Status: Current every day smoker Past Alcohol Use History: None Reported Past Drug Use History: None Reported - Past Family History Mother Family Medical History: No Reported History General Exam Limitations: altered mental status General appearance: alert Head exam: Present: other (Small abrasion to the frontal scalp) Eye exam: Present: normal appearance, PERRL, EOMI ENT exam: Present: normal oropharynx Neck exam: Present: normal inspection. Absent: tenderness, meningismus Respiratory exam: Present: normal lung sounds bilaterally Cardiovascular Exam: Present: regular rate, normal rhythm GI/Abdominal exam: Present: soft. Absent: tenderness Back exam: Present: normal inspection Neurological exam: Present: alert, altered. Absent: motor sensory deficit Expanded Neurological exam: Present: protecting the airway, other (Nonverbal) Cranial nerves: EOM's Intact: Normal Motor strength exam: RUE: 5, LUE: 5, RLE: 5, LLE: 5 Eye Response: (4) open spontaneously Motor Response: (6) obeys commands Verbal Response: (1) no verbal response Psychiatric exam: Present: agitated (Patient appears minimally agitated and slightly restless) Skin exam: Present: abrasion Course Vital Signs 10/04/23 10/04/23 16:54 19:59 Temperature 99.5 F Pulse Rate 74 58 L Respiratory 20 16 Rate Blood Pressure 190/98 107/66 O2 Sat by Pulse 98 96 Oximetry Procedures - Restraint - Face to Face Restraint Occurrence 1 Patient's Immediate Situation: Endangers self safety, Endangers others' safety, Endangers staff safety, Violent behavior Patient's Reaction to the Intervention: Uncooperative Patient's Medical & Behavioral Condition: Awake Need to Continue or Terminate Restraint or Seclusion: Continue Face to Face Eval of Restraint Date: 10/04/23 Face to Face Eval of Restraint Time: 18:18 Medical Decision Making - Medical Decision Making Was pt. sent in by a medical professional or institution (, PA, FORCER MAKER, urgent care, hospital, or custodial...) When possible be specific @ -No Did you speak to anyone other than the patient for history (EMS, parent, family, police, friend...)? What history was obtained from this source @ -Family helps provide history as patient is nonverbal on arrival Did you review nursing and triage notes (agree or disagree)? Why? @ -I reviewed and agree with nursing and triage notes Were old charts reviewed (outside hosp., previous admission, EMS record, old EKG, old radiological studies, urgent care reports/EKG's, custodial records)? Report findings @ -No old charts were reviewed Differential Diagnosis (chest pain, altered mental status, abdominal pain women, abdominal pain men, vaginal bleeding, weakness, fever, dyspnea, syncope, hea dache, dizziness, GI bleed, back pain, seizure, CVA, palpatations, mental health, musculoskeletal)? @ -Differential Altered Mental Status: Hypoglycemia, DKA, hypercapnia, ETOH, overdose, CO poisoning, trauma, myxedema coma, HTN encephalopathy, infection, encephalitis, psychosis, intercranial hemor rhage, hepatic encephalopathy, meningitis, CVA, this is not meant to be an all- inclusive list EKG interpreted by me (3pts min.). @ -As above X-rays interpreted by me (1pt min.). @ -Chest x-ray shows no acute process CT interpreted by me (1pt min.). @ -CT scan brain and cervical spine does not reveal acute process U/S interpreted by me (1pt. min.). @ -None done What testing was considered but not performed or refused? (CT, X-rays, U/S, labs)? Why? @ -None What meds were considered but not given or refused? Why? @ -None Did you discuss the management of the patient with other professionals (professionals i.e. , PA, FORCER MAKER, lab, RT, psych nurse, medical social worker, tint layer, teacher, light armored vehicle officer, briefcase sewer)? Give summary @ -Case was discussed with Dr. Waddell who will admit covering Dr. Meier. He does request neurology consult. Was smoking cessation discussed for >3mins.? @ -No Was critical care preformed (if so, how long)? @ -No Were there social determinants of health that impacted care today? How? (Homelessness, low income, unemployed, alcoholism, drug addiction, transportati on, low edu. Level, literacy, decrease access to med. care, long term, rehab)? @ -No Was there de-escalation of care discussed even if they declined (Discuss DNR or withdrawal of care, Hospice)? DNR status @ -No What co-morbidities impacted this encounter? (DM, HTN, Smoking, COPD, CAD, Cancer, CVA, ARF, Chemo, Hep., AIDS, mental health diagnosis, sleep apnea, morbid obesity)? @ -None Was patient admitted / discharged? Hospital course, mention meds given and route, prescriptions, significant lab abnormalities, going to OR and other pertinent info. @ -Patient reevaluated and resting comfortably in bed. Still no meningismus. No obvious signs of infection. Patient is no longer restless or thrashing around. Patient is drowsy but arousable to touch. Family is updated on results and plan. Admission orders written. Undiagnosed new problem with uncertain prognosis? @ -No Drug Therapy requiring intensive monitoring for toxicity (Heparin, Nitro, Insulin, Cardizem)? @ -No Were any procedures done? @ -No Diagnosis/symptom? @ -Altered mental status Acute, or Chronic, or Acute on Chronic? @ -Acute Uncomplicated (without systemic symptoms) or Complicated (systemic symptoms)? @ -Default Side effects of treatment? @ -No Exacerbation, Progression, or Severe Exacerbation? @ -No Poses a threat to life or bodily function? How? (Chest pain, [place], PR, pneumonia, PE, COPD, DKA, ARF, appy, cholecystitis, CVA, Diverticulitis, Homicidal, Suicidal, threat to staff... and all critical care pts) @ -No - Lab Data Result diagrams: 10/04/23 18:13 10/04/23 18:13 Lab Results 10/04/23 10/04/23 10/04/23 Range/Units 17:30 18:13 18:13 WBC 16.2 H (3.8-10.6) k/uL RBC 4.17 (3.80-5.40) m/uL Hgb 11.4 (11.4-16.0) gm/dL Hct 35.9 (34.0-46.0) % MCV 86.1 D (80.0-100.0) fL MCH 27.2 (25.0-35.0) pg MCHC 31.6 (31.0-37.0) g/dL RDW 14.8 (11.5-15.5) % Plt Count 344 (150-450) k/uL MPV 8.1 Neutrophils % 80 % Lymphocytes % 16 % Monocytes % 3 % Eosinophils % 0 % Basophils % 0 % Neutrophils # 13.0 H (1.3-7.7) k/uL Lymphocytes # 2.5 (1.0-4.8) k/uL Monocytes # 0.5 (0-1.0) k/uL Eosinophils # 0.1 (0-0.7) k/uL Basophils # 0.1 (0-0.2) k/uL Hypochromasia Slight PT 10.7 (10.0-12.5) sec INR 1.0 (<1.2) APTT 22.5 (22.0-30.0) sec Sodium (137-145) mmol/L Potassium (3.5-5.1) mmol/L Chloride (98-107) mmol/L Carbon Dioxide (22-30) mmol/L Anion Gap mmol/L BUN (7-17) mg/dL Creatinine (0.52-1.04) mg/dL Est GFR (CKD-EPI)AfAm (>60 ml/min/1.73 sqM) Est GFR (CKD-EPI)NonAf (>60 ml/min/1.73 sqM) Glucose (74-99) mg/dL POC Glucose (mg/dL) (70-110) mg/dL POC Glu Milk Truck Driver ID Calcium (8.4-10.2) mg/dL Total Bilirubin (0.2-1.3) mg/dL AST (14-36) U/L ALT (4-34) U/L Alkaline Phosphatase (38-126) U/L Creatine Kinase (30-135) U/L Troponin I (0.000-0.034) ng/mL Total Protein (6.3-8.2) g/dL Albumin (3.5-5.0) g/dL Urine Color Colorless Urine Appearance Clear (Clear) Urine pH 7.0 (5.0-8.0) Ur Specific [place] 1.014 (1.001-1.035) Urine Protein Trace H (Negative) Urine Glucose (UA) Negative (Negative) Urine Ketones Negative (Negative) Urine Blood Negative (Negative) Urine Nitrite Negative (Negative) Urine Bilirubin Negative (Negative) Urine Urobilinogen <2.0 (<2.0) mg/dL Ur Leukocyte Esterase Negative (Negative) Salicylates mg/dL Urine Opiates Screen Not Detected (NotDetected) Ur Oxycodone Screen Not Detected (NotDetected) Urine Methadone Screen Not Detected (NotDetected) Acetaminophen ug/mL Ur Barbiturates Screen Not Detected (NotDetected) U Tricyclic Antidepress Not Detected (NotDetected) Ur Phencyclidine Scrn Not Detected (NotDetected) Ur Amphetamines Screen Not Detected (NotDetected) U Methamphetamines Scrn Not Detected (NotDetected) U Benzodiazepines Scrn Not Detected (NotDetected) Urine Cocaine Screen Not Detected (NotDetected) U Marijuana (THC) Screen Detected H (NotDetected) Serum Alcohol mg/dL 10/04/23 10/04/23 10/04/23 Range/Units 18:13 18:13 18:47 WBC (3.8-10.6) k/uL RBC (3.80-5.40) m/uL Hgb (11.4-16.0) gm/dL Hct (34.0-46.0) % MCV (80.0-100.0) fL MCH (25.0-35.0) pg MCHC (31.0-37.0) g/dL RDW (11.5-15.5) % Plt Count (150-450) k/uL MPV Neutrophils % % Lymphocytes % % Monocytes % % Eosinophils % % Basophils % % Neutrophils # (1.3-7.7) k/uL Lymphocytes # (1.0-4.8) k/uL Monocytes # (0-1.0) k/uL Eosinophils # (0-0.7) k/uL Basophils # (0-0.2) k/uL Hypochromasia PT (10.0-12.5) sec INR (<1.2) APTT (22.0-30.0) sec Sodium 146 H (137-145) mmol/L Potassium 3.4 L (3.5-5.1) mmol/L Chloride 111 H (98-107) mmol/L Carbon Dioxide 23 (22-30) mmol/L Anion Gap 12 mmol/L BUN 19 H (7-17) mg/dL Creatinine 1.33 H (0.52-1.04) mg/dL Est GFR (CKD-EPI)AfAm 55 (>60 ml/min/1.73 sqM) Est GFR (CKD-EPI)NonAf 48 (>60 ml/min/1.73 sqM) Glucose 96 (74-99) mg/dL POC Glucose (mg/dL) 101 (70-110) mg/dL POC Glu Milk Truck Driver ID Shauna Clemens Calcium 9.6 (8.4-10.2) mg/dL Total Bilirubin 0.4 (0.2-1.3) mg/dL AST 23 (14-36) U/L ALT 17 (4-34) U/L Alkaline Phosphatase 89 (38-126) U/L Creatine Kinase 107 (30-135) U/L Troponin I <0.012 (0.000-0.034) ng/mL Total Protein 6.9 (6.3-8.2) g/dL Albumin 4.1 (3.5-5.0) g/dL Urine Color Urine Appearance (Clear) Urine pH (5.0-8.0) Ur Specific [place] (1.001-1.035) Urine Protein (Negative) Urine Glucose (UA) (Negative) Urine Ketones (Negative) Urine Blood (Negative) Urine Nitrite (Negative) Urine Bilirubin (Negative) Urine Urobilinogen (<2.0) mg/dL Ur Leukocyte Esterase (Negative) Salicylates <1.0 mg/dL Urine Opiates Screen (NotDetected) Ur Oxycodone Screen (NotDetected) Urine Methadone Screen (NotDetected) Acetaminophen <10.0 ug/mL Ur Barbiturates Screen (NotDetected) U Tricyclic Antidepress (NotDetected) Ur Phencyclidine Scrn (NotDetected) Ur Amphetamines Screen (NotDetected) U Methamphetamines Scrn (NotDetected) U Benzodiazepines Scrn (NotDetected) Urine Cocaine Screen (NotDetected) U Marijuana (THC) Screen (NotDetected) Serum Alcohol <10 mg/dL Disposition Clinical Impression: Altered mental status Disposition: ADMITTED IP TO THIS HOSP Is patient prescribed a controlled substance at d/c from ED?: No Referrals: Leandro Mendoza DO [Primary Care Provider] - 1-2 days Time of Disposition: 20:19
[2023-10-04 18:06] LABS: Appearance,Urine Clear (Clear); Bilirubin,Urine Negative (Negative); Blood,Urine Negative (Negative); Color,Urine Colorless; Glucose,Urine (UA) Negative (Negative); Ketones,Urine Negative (Negative); Leukocyte Esterase,Urine Negative (Negative); Nitrite,Urine Negative (Negative); Protein,Urine Trace (Negative); Specific Gravity,Urine 1.014 (1.001-1.035); Urobilinogen,Urine <2.0 mg/dL (<2.0)
[2023-10-04] MEDS: LORazepam 2 MG/ML INJ IV STA ×2 (18:10→18:17)
[2023-10-04 18:23] LABS: Basophils # (A) 0.1 k/uL (0-0.2); Basophils % (A) 0 %; Eosinophils # (A) 0.1 k/uL (0-0.7); Eosinophils % (A) 0 %; HCT 35.9 % (34.0-46.0); HGB 11.4 gm/dL (11.4-16.0); Hypochromasia Slight; Lymphocytes # (A) 2.5 k/uL (1.0-4.8); Lymphocytes % (A) 16 %; MCH 27.2 pg (25.0-35.0); MCHC 31.6 g/dL (31.0-37.0); Mean Platelet Volume 8.1; Monocytes # (A) 0.5 k/uL (0-1.0); Monocytes % (A) 3 %; Neutrophils % (A) 80 %; Platelet Count 344 k/uL (150-450); RBC 4.17 m/uL (3.80-5.40); RDW 14.8 % (11.5-15.5); WBC 16.2 k/uL (3.8-10.6)
[2023-10-04 18:27] LABS: Amphetamine Screen,Urine Not Detected (NotDetected); Barbiturate Screen,Urine Not Detected (NotDetected); Benzodiazepines Screen,Urine Not Detected (NotDetected); Cocaine Screen,Urine Not Detected (NotDetected); Methadone Screen, Urine Not Detected (NotDetected); Opiate Screen,Urine Not Detected (NotDetected); Oxycodone Screen, Urine Not Detected (NotDetected); Phencyclidine Screen,Urine Not Detected (NotDetected); Tricyclic Antidepressant,Urine Not Detected (NotDetected); Urn Cannabinoid Scrn Detected (NotDetected)
[2023-10-04 18:33] LABS: MCV 86.1 fL (80.0-100.0)
[2023-10-04 18:36] LABS: Partial Thromboplastin Time 22.5 sec (22.0-30.0); Prothrombin Time 10.7 sec (10.0-12.5)
--- NOTE | 2023-10-04 18:36 | XR ---
EXAMINATION TYPE: XR chest 1V portable DATE OF EXAM: 10/04/2023 6:31 PM CLINICAL INDICATION:Female, 47 years old with history of altered mental status; [facility] COMPARISON: Chest radiographs from 06/17/2023. TECHNIQUE: XR chest 1V portable Frontal view of the chest. FINDINGS: Lungs/Pleura: There is no evidence of pleural effusion, focal consolidation, or pneumothorax. Pulmonary vascularity: Unremarkable. Heart/mediastinum: Cardiomediastinal silhouette is unremarkable. Musculoskeletal: No acute osseous pathology. IMPRESSION: No acute cardiopulmonary disease/process.
[2023-10-04 18:39] LABS: African American GFR (CKD) 55 (>60 ml/min/1.73 sqM); Albumin 4.1 g/dL (3.5-5.0); Anion Gap 12 mmol/L; Blood Urea Nitrogen 19 mg/dL (7-17); Calcium 9.6 mg/dL (8.4-10.2); Carbon Dioxide 23 mmol/L (22-30); Chloride 111 mmol/L (98-107); Glucose 96 mg/dL (74-99); Non-African American GFR(CKD) 48 (>60 ml/min/1.73 sqM); Potassium 3.4 mmol/L (3.5-5.1); Sodium 146 mmol/L (137-145); Total Bilirubin 0.4 mg/dL (0.2-1.3); Total Protein 6.9 g/dL (6.3-8.2)
[2023-10-04 18:40] LABS: ALT 17 U/L (4-34); AST 23 U/L (14-36); Acetaminophen <10.0 ug/mL; Alcohol <10 mg/dL; Alkaline Phosphatase 89 U/L (38-126); Creatine Kinase 107 U/L (30-135); Salicylate <1.0 mg/dL
[2023-10-04 18:53] LABS: Glucose,Whole Blood 101 mg/dL (70-110)
--- NOTE | 2023-10-04 20:05 | CT ---
EXAMINATION TYPE: CT brain cspine wo con CT DLP: 1441.8 mGycm, Automated exposure control for dose reduction was used. DATE OF EXAM: 10/04/2023 7:11 PM COMPARISON: CT brain 06/15/2023 CLINICAL INDICATION:Female, 47 years old with history of ams; AMS TECHNIQUE: Brain: Multiple axial CT images of the brain were obtained without IV contrast. Cspine: Axial CT images from the skull base to the inferior aspect of T2 we obtained without intraven ous contrast. Coronal and sagittal reformatted images were also reviewed. FINDINGS: Lateral playground monitor view is artifactually distorted. Brain: Extra-axial spaces: No abnormal extra-axial fluid collections. Ventricular system: Stable appearance with mild ex vacuo dilatation of the anterior horn right latera l ventricle likely related to adjacent brain volume loss. Cerebral parenchyma: No increased attenuation to suggest acute intraparenchymal hemorrhage. The gra y-white matter interface appears maintained. There may be minimal global brain atrophy. Stable appe arance of chronic hypodensity likely old lacunar infarct in the left subinsular region. Similar appea adria of patch of hypoattenuation in the right frontal lobe white matter inferiorly extending to the right lateral ventricle, compatible with remote insult. Cerebellum: No acute abnormality. Mass effect: No evidence of mass effect or midline shift. Intracranial vasculature: Unremarkable Soft tissues: No acute abnormality Visualized orbits: Orbital contents appear grossly intact. Calvarium/osseous structures: No evidence of calvarial fracture. Paranasal sinuses and mastoid air cells: Clear. Mild nasal septal deviation to the left. MRI is more sensitive for detecting acute processes such as infarct, and may be considered if clinica lly warranted. Cervical spine: Fracture: None seen. Osseous structures, spinal canal/neural foramina: Craniocervical junction appears intact with mild de generative changes. Mild degenerative disc changes and facet arthrosis. Most conspicuous at C5-C6 the re is disc space narrowing with small disc marginal osteophytes causing mild to moderate canal and ne ural foraminal stenoses. Vertebral alignment: No traumatic malalignment. Straightening mild reversal of the normal cervical lo rdosis, can be seen with degenerative changes, pain, positioning, muscular spasm. Neck soft tissues: No acute finding.. Other: Lung apices show no acute infiltrate or pneumothorax. Mild emphysematous changes and reticula r scarring. Tiny radiodensity left lung apex likely calcified granuloma. IMPRESSION: CT head: 1. No acute intracranial CT abnormality. 2. Stable appearance of chronic right frontal lobe periventricular white matter hypoattenuation, cons istent with remote insult. CT cervical spine: 1. No evidence of acute cervical spine fracture or traumatic malalignment. 2. Mild cervical spondylosis.
[2023-10-04] MEDS ORDERED: NALOXONE 0.4 MG/ML 1 ML VIAL IV PRN (20:19)
[2023-10-04] MEDS: SODIUM CHLORIDE 0.9% 1,000 ML IV SCH (20:35)
[2023-10-05] MEDS: HALOPERIDOL LACTATE 5 MG/ML 1 ML VIAL IM STA (01:59)
[2023-10-05 03:40] LABS: Glucose,Whole Blood 92 mg/dL (70-110)
[2023-10-05 07:32] LABS: Basophils % (A) 0 %; Eosinophils # (A) 0.2 k/uL (0-0.7); Eosinophils % (A) 2 %; HCT 31.3 % (34.0-46.0); HGB 10.4 gm/dL (11.4-16.0); Hypochromasia Slight; Lymphocytes # (A) 2.6 k/uL (1.0-4.8); Lymphocytes % (A) 29 %; MCH 27.7 pg (25.0-35.0); MCHC 33.1 g/dL (31.0-37.0); MCV 83.7 fL (80.0-100.0); Mean Platelet Volume 8.8; Monocytes # (A) 0.5 k/uL (0-1.0); Monocytes % (A) 6 %; Neutrophils # (A) 5.4 k/uL (1.3-7.7); Neutrophils % (A) 61 %; Platelet Count 284 k/uL (150-450); Poikilocytosis Slight; RBC 3.74 m/uL (3.80-5.40); RDW 14.9 % (11.5-15.5); WBC 8.9 k/uL (3.8-10.6)
[2023-10-05 07:50] LABS: ALT 15 U/L (4-34); African American GFR (CKD) 77 (>60 ml/min/1.73 sqM); Albumin 3.5 g/dL (3.5-5.0); Anion Gap 9 mmol/L; Blood Urea Nitrogen 16 mg/dL (7-17); Calcium 8.9 mg/dL (8.4-10.2); Carbon Dioxide 19 mmol/L (22-30); Chloride 116 mmol/L (98-107); Glucose 90 mg/dL (74-99); Non-African American GFR(CKD) 67 (>60 ml/min/1.73 sqM); Sodium 144 mmol/L (137-145); Total Bilirubin 0.6 mg/dL (0.2-1.3)
[2023-10-05 08:03] LABS: Potassium 3.3 mmol/L (3.5-5.1)
[2023-10-05 08:04] LABS: AST 38 U/L (14-36); Alkaline Phosphatase 57 U/L (38-126); Total Protein 6.5 g/dL (6.3-8.2)
[2023-10-05 08:06] LABS: Hypochromasia (M) Present
--- NOTE | 2023-10-05 11:47 | P.CNNES ---
History of Present Illness Consult date: 10/05/23 Requesting physician: Manoj Pederson Reason for Consult: AMS History of Present Illness: Patient is a 47-year-old right-handed female came to the hospital yesterday at 4:24 PM for altered mental status. Patient states that she is allergic to a medication, and should not have had it. I asked which medication, patient stat es "Xanax". On asking the patient, who gave her the Xanax, patient said she took it "by herself" and took 3 tablets of 2 mg Xanax. Patient states that she took it from her mother's prescription. Patient takes Xanax about once a month. Patient frequently would disclose some information and then say "do not write it, or put it in records". She is asking for Xanax tablet to be prescribed now. I informed that she states that she is allergic to Xanax, but then she does not acknowledge it and asking because "she likes it". Patient is very confused. Patient lives by herself, has 1 child, whom she has contact. Vital signs arrival blood pressure 190/98 which came down to 107/66, pulse is 74 temperature 99.5. EKG shows sinus bradycardia with heart rate of 58, chest x- ray is normal. CT of the cervical spine showed no evidence of acute cervical spine fracture or traumatic malalignment. Mild cervical spondylosis. CT of the head showed no acute intracranial abnormality. Stable appearance of chronic right frontal lobe periventricular white matter hypoattenuation, consistent with remote insult. Patient denies any hypertension or diabetes. Patient smokes half pack per day for 11 years. However on looking at previous records, she mentioned for 20 years, then patient said "I lied", yes for 20 years. She admits to still smoking cigarettes. Then she mentioned "do not write about smoking". She denies any alcohol use, uses marijuana sometimes. She does not use any drugs. She stays home. Does not work. On asking about seizure, patient said that she had seizures in the past "sort of". Then patient stated not to write about the seizures, and then said she never had a seizure. Patient's mother has MS. Review of Systems Constitutional: Reports weight gain, Denies chills, Denies fever Eyes: denies blurred vision, denies diplopia, denies pain, denies loss of peripheral vision Ears: deny: decreased hearing, ear discharge Ears, nose, mouth and throat: Reports headache (Sometimes, not now), Denies sore throat, Denies vertigo Cardiovascular: Denies chest pain, Denies lightheadedness, Denies shortness of breath Respiratory: Denies cough, Denies excessive sputum Gastrointestinal: Reports abdominal pain, Reports diarrhea, Reports nausea, Reports vomiting Genitourinary: Denies dysuria, Denies hematuria, Denies urge incontinence Musculoskeletal: Reports neck pain, Reports neck stiffness, Denies low back pain Integumentary: Denies pruritus, Denies rash Neurological: Reports as per HPI Psychiatric: Reports anxiety, Reports depression Endocrine: Reports fatigue, Reports weight change Hematologic/Lymphatic: Reports easy bruising, Denies easy bleeding Past Medical History Past Medical History: Pneumonia, Respiratory Disorder Additional Past Medical History / Comment(s): Polysubstane abuse, history of drug overdose, history of ARDS requiring intubation and mechanical ventilation, history of severe rhabdomyolysis and LUIS MIGUEL (recovered), history of MSSA pneumonia and sepsis, history of metabolic encephalopathy (recovered), history of d epression, suicidal thoughts, suicide attempts, obesity. 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 Date of last positivie culture/infection: 2011 MDRO Source:: nare Past Surgical History: No Surgical Hx Reported Additional Past Surgical History / Comment(s): breast biopsy (date unknown), trach placement and peg tube placement for ARDS, abdominal surgery x2 May 2023 "I had a stomach ulcer and they had to go in twice because there was a c omplication". Past Anesthesia/Blood Transfusion Reactions: No Reported Reaction Past Psychological History: Anxiety, Depression, PTSD Smoking Status: Current every day smoker Past Alcohol Use History: None Reported Past Drug Use History: None Reported - Past Family History Mother Family Medical History: No Reported History Medications and Allergies Home Medications Medication Instructions Recorded Confirmed Type Sertraline HCl [Zoloft] 200 mg PO DAILY 11/16/18 07/31/23 History busPIRone HCL [Buspar] 30 mg PO BID 01/21/20 07/31/23 History buPROPion XL [Wellbutrin XL] 150 mg PO TID 05/16/20 07/31/23 History Cholecalciferol [Vitamin D3 (25 150 mcg PO DAILY 06/03/23 07/31/23 History Mcg = 1000 Iu)] Magnesium Oxide [Mag-Ox] 400 mg PO BID 07/31/23 07/31/23 History atenoloL 100 mg PO DAILY 07/31/23 07/31/23 History HYDROcodone/APAP 5-325MG [[place] 1 tab PO Q6HR PRN 3 Days #12 tab 08/05/23 Rx 5-325] Ondansetron Odt [Zofran ODT] 4 mg PO Q8H PRN 3 Days #9 tab 08/05/23 Rx Pantoprazole [Protonix] 40 mg PO BID 30 Days #60 tab 08/05/23 Rx Sucralfate [Carafate] 1 gm PO QID 5 Days #200 ml 08/05/23 Rx Tamsulosin [Flomax] 0.4 mg PO DAILY 7 Days #7 cap 08/05/23 Rx Allergies Allergy/AdvReac Type Severity Reaction Status Date / Time Sulfa (Sulfonamide Allergy Rash/Hives Verified 07/31/23 23:00 Antibiotics) sulfamethoxazole Allergy Rash/Hives Verified 07/31/23 23:00 [From Bactrim] trimethoprim [From Bactrim] Allergy Rash/Hives Verified 07/31/23 23:00 Physical Examination - Vital Signs Vital Signs: Vital Signs Temp Pulse Resp BP Pulse Ox 10/05/23 06:17 56 L 14 104/59 97 10/05/23 04:08 61 17 166/98 97 10/05/23 03:09 98.4 F 60 12 127/82 98 10/05/23 02:05 76 18 182/129 96 10/04/23 23:30 58 L 18 142/97 97 10/04/23 21:46 54 L 18 118/64 99 10/04/23 20:36 54 L 18 110/75 98 10/04/23 19:59 58 L 16 107/66 96 10/04/23 16:54 99.5 F 74 20 190/98 98 Intake and Output 10/04/23 10/05/23 10/05/23 22:59 06:59 14:59 Other: Weight 68.039 kg Patient is a middle aged female, in no acute distress. She is somewhat disheveled. Her hair are poorly done. Patient is alert awake. Patient states that she is in the [facility], which used to be called "[facility]". I informed her that she is in [facility] but she declined. She believes that she is in [facility] where she was before. I even asked the sitter to reinforce about this hospital, but she is adamant that she is currently in [facility]. Patient could not tell the month and states it is the year 2018. She knows name of the current president. Speech and language functions are normal. Patient can name and repeat very well. No aphasia or dysarthria. Patient was able to name objects l lynn earlobe, fingers, fist, but on hold but not the knuckles. Attention, concentration is significantly impaired and fund of knowledge is also very limited. On cranial nerve examination, pupils are equal, round and reacting to light. Visual field testing was just impossible. Patient would perseverate on either right, or the left, despite moving the fingers on the other side. When I would move fingers of both hands, she would still see either the right or left, very inconsistent, very confused. Extraocular muscles are intact with no nystagmus. Face is symmetric, tongue protrudes to the midline. Palatal elevation and sensation normal, hearing and shoulder shrug normal, facial sensation normal. On muscle strength testing, there is no pronator drift and the strength is normal in arms and legs distally and proximally. Deep tendon reflexes are symmetric 2+ all over and plantars downgoing. Sensory to touch again was very inconsistent like visual hernandez, but keep on repeating "right" or "left" despite touching 1 or the other side or even both. Or if she starts seeing "both", she would keep on saying for even if one of the arms is touched. Cerebellar function showed significant tremulousness for manngh-bi-[id number] testing bilaterally. No ataxia for [id number] testing on either side. Tone and bulk of muscles normal. Gait deferred.. On general examination, there is no carotid bruit or murmur, S1-S2 audible. Chest is clear on consultation. Abdomen is soft nontender. No organomegaly, bowel sounds present. Peripheral pulses are present. No peripheral edema. Patient has multiple bruises on her legs. Results - Laboratory Findings CBC and BMP: 10/05/23 07:16 10/05/23 07:16 Abnormal Lab Findings: Abnormal Labs 10/04/23 10/04/23 10/04/23 17:30 18:13 18:13 WBC 16.2 H RBC Hgb Hct Neutrophils # 13.0 H Sodium 146 H Potassium 3.4 L Chloride 111 H Carbon Dioxide BUN 19 H Creatinine 1.33 H AST Urine Protein Trace H U Marijuana (THC) Screen Detected H 10/05/23 10/05/23 07:16 07:16 WBC RBC 3.74 L Hgb 10.4 L Hct 31.3 L Neutrophils # Sodium Potassium 3.3 L Chloride 116 H Carbon Dioxide 19 L BUN Creatinine AST 38 H Urine Protein U Marijuana (THC) Screen Assessment and Plan Assessment: * Altered mental status, unclear cause, rule out substance abuse. Patient states that she took some tablets of Xanax from her mother. * History of substance use * Anxiety, depression * History of folate deficiency * History of marijuana use * Hyperlipidemia * Tobacco use Plan: * EEG for altered mental status * B12, MMA, B6, TSH and RPR. * MRI of the brain with and without contrast, evaluate for MS or other structural abnormalities * MRA of the brain, follow-up on aneurysm versus infundibulum involving supraclinoid left ICA. * Start folic acid 1 mg daily for history of folate deficiency * Patient's previous thiamine level was normal. * Psychiatric consultation for substance abuse. 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 * Neurology will follow. Thank you for the consult.
[2023-10-05] MEDS: FOLIC ACID 1 MG TAB PO SCH (13:26)
--- NOTE | 2023-10-05 16:36 | P.HPIM ---
History of Present Illness H&P Date: 10/05/23 Chief Complaint: Altered mental status 47-year-old female, history of polysubstance abuse, depression, presenting to the emergency department for change in mental status. Patient's daughter called patient's parents this morning. Father went over and found patient sleeping all morning. This was for a couple of hours. They received another call and went to evaluate her prior to arrival. They found patient in the current state that she has right now. Patient is awake and alert. Patient will not talk or answer any questions. At the time of my evaluation patient reports that she took 3 tablets of Xanax 2 mg each; claims she was not trying to harm herself; patient is not sure how she get Xanax; does not have her 1 prescription Blood work completed in ED reveals a WBC of 16.2, hemoglobin of 11.4 and platelet count of 344, sodium 146, potassium 3.4, BUNs/creatinine of 19/1.33, troponin less than 0.012 CT of the head does not reveal any acute intracranial abnormality; stable appearance of chronic right frontal lobe periventricular white matter hypoattenuation consistent with remote insult CT of the cervical spine reveals mild cervical spondylosis Review of Systems ROS unobtainable: due to mental status Past Medical History Past Medical History: Pneumonia, Respiratory Disorder Additional Past Medical History / Comment(s): Polysubstane abuse, history of drug overdose, history of ARDS requiring intubation and mechanical ventilation, history of severe rhabdomyolysis and LUIS MIGUEL (recovered), history of MSSA pneumonia and sepsis, history of metabolic encephalopathy (recovered), history of depression, suicidal thoughts, suicide attempts, obesity. 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 Past Anesthesia/Blood Transfusion Reactions: No Reported Reaction Past Psychological History: Anxiety, Depression, PTSD Smoking Status: Current every day smoker Past Alcohol Use History: None Reported Past Drug Use History: None Reported - Past Family History Mother Family Medical History: No Reported History Medications and Allergies Home Medications Medication Instructions Recorded Confirmed Type Sertraline HCl [Zoloft] 200 mg PO DAILY 11/16/18 10/05/23 History busPIRone HCL [Buspar] 30 mg PO BID 01/21/20 10/05/23 History buPROPion XL [Wellbutrin XL] 150 mg PO TID 05/16/20 10/05/23 History atenoloL 100 mg PO DAILY 07/31/23 10/05/23 History Pantoprazole [Protonix] 40 mg PO BID 30 Days #60 tab 08/05/23 10/05/23 Rx Acetaminophen [Tylenol] 650 mg PO Q6H PRN 10/05/23 10/05/23 History Losartan Potassium [Cozaar] 100 mg PO DAILY 10/05/23 10/05/23 History hydrOXYzine HCL [Atarax] 25 mg PO TID PRN 10/05/23 10/05/23 History methocarbamoL [Robaxin-750] 750 mg PO QID PRN 10/05/23 10/05/23 History Allergies Allergy/AdvReac Type Severity Reaction Status Date / Time Sulfa (Sulfonamide Allergy Rash/Hives Verified 10/05/23 15:07 Antibiotics) sulfamethoxazole Allergy Rash/Hives Verified 10/05/23 15:07 [From Bactrim] trimethoprim [From Bactrim] Allergy Rash/Hives Verified 10/05/23 15:07 Physical Exam Vitals: Vital Signs Temp Pulse Resp BP Pulse Ox 10/05/23 06:17 56 L 14 104/59 97 10/05/23 04:08 61 17 166/98 97 10/05/23 03:09 98.4 F 60 12 127/82 98 10/05/23 02:05 76 18 182/129 96 10/04/23 23:30 58 L 18 142/97 97 10/04/23 21:46 54 L 18 118/64 99 10/04/23 20:36 54 L 18 110/75 98 10/04/23 19:59 58 L 16 107/66 96 10/04/23 16:54 99.5 F 74 20 190/98 98 Intake and Output 10/04/23 10/05/23 10/05/23 22:59 06:59 14:59 Other: Weight 68.039 kg General appearance: alert but confused Head exam: Present: other (Small abrasion to the frontal scalp) Eye exam: Present: normal appearance, PERRL, EOMI ENT exam: Present: normal oropharynx Neck exam: Present: normal inspection. Absent: tenderness, meningismus Respiratory exam: Present: normal lung sounds bilaterally Cardiovascular Exam: Present: regular rate, normal rhythm GI/Abdominal exam: Present: soft. Absent: tenderness Back exam: Present: normal inspection Neurological exam: Present: alert, altered. Absent: motor sensory deficit Expanded Neurological exam: Present: protecting the airway, other (Nonverbal) Cranial nerves: EOM's Intact: Normal Motor strength exam: RUE: 5, LUE: 5, RLE: 5, LLE: 5 Eye Response: (4) open spontaneously Motor Response: (6) obeys commands Verbal Response: (1) no verbal response Psychiatric exam: Present: agitated (Patient appears minimally agitated and slightly restless) Skin exam: Present: abrasion Results CBC & Chem 7: 10/05/23 07:16 10/05/23 07:16 Labs: Abnormal Lab Results - Last 24 Hours (Table) 10/04/23 10/04/23 10/04/23 Range/Units 17:30 18:13 18:13 WBC 16.2 H (3.8-10.6) k/uL RBC (3.80-5.40) m/uL Hgb (11.4-16.0) gm/dL Hct (34.0-46.0) % Neutrophils # 13.0 H (1.3-7.7) k/uL Sodium 146 H (137-145) mmol/L Potassium 3.4 L (3.5-5.1) mmol/L Chloride 111 H (98-107) mmol/L Carbon Dioxide (22-30) mmol/L BUN 19 H (7-17) mg/dL Creatinine 1.33 H (0.52-1.04) mg/dL AST (14-36) U/L Urine Protein Trace H (Negative) U Marijuana (THC) Screen Detected H (NotDetected) 10/05/23 10/05/23 Range/Units 07:16 07:16 WBC (3.8-10.6) k/uL RBC 3.74 L (3.80-5.40) m/uL Hgb 10.4 L (11.4-16.0) gm/dL Hct 31.3 L (34.0-46.0) % Neutrophils # (1.3-7.7) k/uL Sodium (137-145) mmol/L Potassium 3.3 L (3.5-5.1) mmol/L Chloride 116 H (98-107) mmol/L Carbon Dioxide 19 L (22-30) mmol/L BUN (7-17) mg/dL Creatinine (0.52-1.04) mg/dL AST 38 H (14-36) U/L Urine Protein (Negative) U Marijuana (THC) Screen (NotDetected) Assessment and Plan Assessment: 1. Altered mental status; likely substance abuse; patient reports taking 6 mg of Xanax; urine drug screen is positive for marijuana -- Neurology is consulted and recommending EEG; vitamin B12, B6, MMA, TSH and RPR -- MRI of the brain is ordered with and without contrast to evaluate for MS and other structural abnormalities -- MRI of the brain is recommended 2. Acute renal injury; blood work completed in ED reveals a BUN/creatinine of 19/1.33; patient has been placed on IV fluids; will monitor strict KATERINE's, daily weights, renal function electrolytes; avoid nephrotoxins and hypotension 3. Electrolyte imbalance; sodium is elevated at 146 with potassium of 3.4; likely dehydration; supplemented in ED; remains on IV fluids 4. Leukocytosis; without any source of infection; will monitor CBC with plans to initiate sepsis workup if white blood count remains elevated 5. Hypertension; atenolol 100 mg daily; Cozaar 100 mg daily 5. History of polysubstance abuse; urine drug screen is positive for marijuana 6. History of depression with drug overdose; patient denies this to be a suicidal attempt -- We will continue with home dose of Zoloft 200 mg daily and Wellbutrin 150 mg 3 times daily DVT prophylaxis; SCDs CODE STATUS; full code
[2023-10-05] MEDS: hydrALAZINE HCL 20 MG/ML 1 ML VIAL IVP PRN (19:28)
[2023-10-05] MEDS: busPIRone HCl 10 MG TAB PO SCH (20:28)
[2023-10-05] MEDS: PANTOPRAZOLE 40 MG TABLET PO SCH (20:29)
[2023-10-05] MEDS: ALPRAZolam 0.25 MG TAB PO STA (22:31)
[2023-10-05] MEDS: NICOTINE 14MG/24HR PATCH TRANSDERM SCH (22:31)
[2023-10-05] MEDS: buPROPion XL 150 MG TAB.ER.24H PO SCH (22:32)
[2023-10-06] MEDS: atenoloL 50 MG TAB PO SCH (08:38)
[2023-10-06] MEDS: SERTRALINE 100 MG TAB PO SCH (08:40)
[2023-10-06] MEDS: LOSARTAN 50 MG TAB PO SCH (08:40)
[2023-10-06 10:14] LABS: Basophils # (A) 0.1 k/uL (0-0.2); Basophils % (A) 1 %; Eosinophils # (A) 0.2 k/uL (0-0.7); Eosinophils % (A) 2 %; HCT 37.7 % (34.0-46.0); HGB 11.7 gm/dL (11.4-16.0); Hypochromasia Moderate; Lymphocytes # (A) 2.4 k/uL (1.0-4.8); Lymphocytes % (A) 29 %; MCH 27.2 pg (25.0-35.0); MCHC 30.9 g/dL (31.0-37.0); MCV 87.9 fL (80.0-100.0); Mean Platelet Volume 8.2; Monocytes # (A) 0.5 k/uL (0-1.0); Monocytes % (A) 6 %; Neutrophils # (A) 4.9 k/uL (1.3-7.7); Neutrophils % (A) 61 %; Platelet Count 321 k/uL (150-450); RBC 4.29 m/uL (3.80-5.40); WBC 8.2 k/uL (3.8-10.6)
[2023-10-06] MEDS: LORazepam 0.5 MG TAB PO PRN (10:20)
[2023-10-06 10:51] LABS: African American GFR (CKD) 78 (>60 ml/min/1.73 sqM); Anion Gap 13 mmol/L; Blood Urea Nitrogen 11 mg/dL (7-17); Carbon Dioxide 20 mmol/L (22-30); Chloride 110 mmol/L (98-107); Glucose 98 mg/dL (74-99); Non-African American GFR(CKD) 68 (>60 ml/min/1.73 sqM); Sodium 143 mmol/L (137-145)
[2023-10-06] MEDS: ACETAMINOPHEN TAB 325 MG TAB PO PRN (11:14)
[2023-10-06 11:23] LABS: Potassium 2.7 mmol/L (3.5-5.1)
[2023-10-06] MEDS ORDERED: Potassium Replacement Protocol 1 EACH MISC MISCELLANE PRN (11:25)
[2023-10-06] MEDS: POTASSIUM CHLORIDE ER 20 MEQ TAB.ER PO SCH (11:31)
--- NOTE | 2023-10-06 15:43 | P.PN ---
Subjective Progress Note Date: 10/06/23 47-year-old female, history of polysubstance abuse, depression, presenting to the emergency department for change in mental status. Patient's daughter called patient's parents this morning. Father went over and found patient sleeping all morning. This was for a couple of hours. They received another call and went to evaluate her prior to arrival. They found patient in the current state that she has right now. Patient is awake and alert. Patient will not talk or answer any questions. At the time of my evaluation patient reports that she took 3 tablets of Xanax 2 mg each; claims she was not trying to harm herself; patient is not sure how she get Xanax; does not have her 1 prescription Blood work completed in ED reveals a WBC of 16.2, hemoglobin of 11.4 and platelet count of 344, sodium 146, potassium 3.4, BUNs/creatinine of 19/1.33, troponin less than 0.012 CT of the head does not reveal any acute intracranial abnormality; stable appearance of chronic right frontal lobe periventricular white matter hypoattenuation consistent with remote insult CT of the cervical spine reveals mild cervical spondylosis --Patient is awake alert and oriented this morning; denies suicidal ideation or attempt; reports taking 3 tablets of Xanax, 2 mg each from her mother's prescription; psychiatry is consulted for substance abuse --Neurology on board and workup is in progress -- Blood work reveals improved renal function and normal white blood count -- Remains very anxious; has been placed on Ativan 0.5 mg every 6 hours as needed; await psych evaluation and recommendations Objective - Vital Signs Vital signs: Vital Signs Temp 97.7 F 10/06/23 08:00 Pulse 67 10/06/23 08:00 Resp 18 10/06/23 08:00 BP 137/93 10/06/23 08:00 Pulse Ox 98 10/06/23 08:00 FiO2 Intake & Output 10/05/23 10/06/23 10/06/23 18:59 06:59 18:59 Intake Total 684 444 Balance 684 444 Weight 64.7 kg Intake: Oral 334 444 Other: Voiding Method Toilet Toilet # Voids 1 - Exam Head exam: Present: other (Small abrasion to the frontal scalp) Eye exam: Present: normal appearance, PERRL, EOMI ENT exam: Present: normal oropharynx Neck exam: Present: normal inspection. Absent: tenderness, meningismus Respiratory exam: Present: normal lung sounds bilaterally Cardiovascular Exam: Present: regular rate, normal rhythm GI/Abdominal exam: Present: soft. Absent: tenderness Back exam: Present: normal inspection Neurological exam: Present: alert, altered. Absent: motor sensory deficit Expanded Neurological exam: Present: protecting the airway, other (Nonverbal) Cranial nerves: EOM's Intact: Normal Motor strength exam: RUE: 5, LUE: 5, RLE: 5, LLE: 5 Eye Response: (4) open spontaneously Motor Response: (6) obeys commands Verbal Response: (1) no verbal response Psychiatric exam: Present: agitated (Patient appears minimally agitated and slightly restless) Skin exam: Present: abrasion - Labs CBC & Chem 7: 10/06/23 08:45 10/06/23 08:45 Assessment and Plan Assessment: 1. Altered mental status; likely substance abuse; patient reports taking 6 mg of Xanax; urine drug screen is positive for marijuana -- Neurology is consulted and recommending EEG; vitamin B12, B6, MMA, TSH and RPR -- MRI of the brain is ordered with and without contrast to evaluate for MS and other structural abnormalities -- MRI of the brain is recommended 2. Acute renal injury; blood work completed in ED reveals a BUN/creatinine of 19/1.33; patient has been placed on IV fluids; will monitor strict KATERINE's, daily weights, renal function electrolytes; avoid nephrotoxins and hypotension 3. Electrolyte imbalance; sodium is elevated at 146 with potassium of 3.4; likely dehydration; supplemented in ED; remains on IV fluids 4. Leukocytosis; without any source of infection; will monitor CBC with plans to initiate sepsis workup if white blood count remains elevated 5. Hypertension; atenolol 100 mg daily; Cozaar 100 mg daily 5. History of polysubstance abuse; urine drug screen is positive for marijuana 6. History of depression with drug overdose; patient denies this to be a najera icidal attempt -- We will continue with home dose of Zoloft 200 mg daily and Wellbutrin 150 mg 3 times daily DVT prophylaxis; SCDs CODE STATUS; full code
[2023-10-07 07:47] LABS: LDL Cholesterol,Calculated 161.8 mg/dL (0.0-131.0)
[2023-10-07 09:35] LABS: African American GFR (CKD) 76 (>60 ml/min/1.73 sqM); Anion Gap 8 mmol/L; Blood Urea Nitrogen 11 mg/dL (7-17); Calcium 8.3 mg/dL (8.4-10.2); Carbon Dioxide 18 mmol/L (22-30); Chloride 116 mmol/L (98-107); Glucose 100 mg/dL (74-99); Magnesium 1.7 mg/dL (1.6-2.3); Non-African American GFR(CKD) 66 (>60 ml/min/1.73 sqM); Potassium 3.3 mmol/L (3.5-5.1); Sodium 142 mmol/L (137-145)
--- NOTE | 2023-10-07 11:36 | MR ---
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 Technical: 3-D [id number] Axial with MIP reconstruction created on a separate workstation.. IV Contrast: None cc Findings: Vertebral arteries: The vertebral arteries are patent. Vertebral arteries are: Slightly right dominant. Basilar artery: Redemonstration of diminutive basilar artery. The basilar artery is intact. The basil ar artery bifurcation is normal. Internal Carotid arteries: Stable 3 mm dilation which may represent infundibulum versus small aneurys m. The cervical, petrous, cavernous and supraclinoid segments are normal. ROLA: Patent with no evidence of aneurysm. ACOM: Present without evidence of aneurysm. MCA: Patent with no evidence of aneurysm. LUBRICATION WORKER: origins of the posterior cerebellar arteries. Patent with no evidence of aneurysm. PCOM: origins of the posterior cerebellar arteries. IMPRESSION: Stable appearance of the left supraclinoid internal carotid artery. Possibly representing infundibulu m versus small aneurysm measuring 3 mm.
--- NOTE | 2023-10-07 11:43 | MR ---
EXAMINATION TYPE: MR brain wo/w con DATE OF EXAM: 10/07/2023 11:22 AM CLINICAL INDICATION:Female, 47 years old with history of AMS, r/o MS; [facility], COMPARISON: Images same day, CT 10/04/2023 TECHNIQUE: Multi planar, multi sequence imaging was performed through the brain including: T1, T2, In version recovery, susceptibility weighted imaging and gradient echo imaging and Diffusion weighted im aging. The patient was then given intravenous contrast and multi planar, T1 fat-saturation images wer e obtained. IV Contrast: cc FINDINGS: The greenberg-white junctions, ventricular system, basal cisterns appear unremarkable. Diffusion-weighted imaging shows no evidence of restricted diffusion to suggest acute/subacute infarct. Intracranial ar terial flow voids are maintained. Midline structures show no abnormality. Scattered foci of high T2 s ignal intensity are seen within the periventricular white matter some of which is orthogonal to the v entricles. Matter changes in the marti also present. The susceptibility weighted images do not reveal any evidence for micro-hemorrhage. After administration of gadolinium, no abnormal enhancement is see n. The bone marrow signal is within normal limits. Paranasal sinuses and mastoid air cells: No significant paranasal sinus disease. Visualized orbits: Orbital contents are intact. IMPRESSION: 1. No evidence of intracranial mass, acute/subacute infarct, or abnormal enhancement. 2. White matter changes some of which is orthogonal to the lateral ventricles correlate for demyelina tion. Findings could be compatible with multiple sclerosis. No evidence for active demyelination at t his time.
[2023-10-07 13:23] VITALS: RESP 16
--- NOTE | 2023-10-07 13:48 | P.PN ---
Subjective Progress Note Date: 10/07/23 47-year-old female, history of polysubstance abuse, depression, presenting to the emergency department for change in mental status. Patient's daughter called patient's parents this morning. Father went over and found patient sleeping all morning. This was for a couple of hours. They received another call and went to evaluate her prior to arrival. They found patient in the current state that she has right now. Patient is awake and alert. Patient will not talk or answer any questions. At the time of my evaluation patient reports that she took 3 tablets of Xanax 2 mg each; claims she was not trying to harm herself; patient is not sure how she get Xanax; does not have her 1 prescription Blood work completed in ED reveals a WBC of 16.2, hemoglobin of 11.4 and platelet count of 344, sodium 146, potassium 3.4, BUNs/creatinine of 19/1.33, troponin less than 0.012 CT of the head does not reveal any acute intracranial abnormality; stable appearance of chronic right frontal lobe periventricular white matter hypoattenuation consistent with remote insult CT of the cervical spine reveals mild cervical spondylosis --Patient is awake alert and oriented this morning; denies suicidal ideation or attempt; reports taking 3 tablets of Xanax, 2 mg each from her mother's prescription; psychiatry is consulted for substance abuse --Neurology on board and workup is in progress -- Blood work reveals improved renal function and normal white blood count -- Remains very anxious; has been placed on Ativan 0.5 mg every 6 hours as needed; await psych evaluation and recommendations 10/06. Patient seen and examined. Laying comfortably in the bed., No acute issues overnight. REVIEW OF SYSTEMS: CONSTITUTIONAL: No fever, no malaise,. CARDIOVASCULAR: No chest pain, no palpitations, no syncope. PULMONARY: No shortness of breath, no cough, GASTROINTESTINAL: No diarrhea, no nausea, no vomiting, no abdominal pain. NEUROLOGICAL: No headaches, no weakness, PHYSICAL EXAMINATION: GENERAL: The patient is alert and oriented x3, not in any acute distress. Well developed, well nourished. HEENT: Pupils are round and equally reacting to light. EOMI. No scleral icterus. No conjunctival pallor. Normocephalic, atraumatic. No pharyngeal erythema. No thyromegaly. CARDIOVASCULAR: S1 and S2 present. No murmurs, rubs, or gallops. PULMONARY: Chest is clear to auscultation, no wheezing or crackles. ABDOMEN: Soft, nontender, nondistended, normoactive bowel sounds. No palpable organomegaly. MUSCULOSKELETAL: No joint swelling or deformity. EXTREMITIES: No cyanosis, clubbing, or pedal edema. NEUROLOGICAL: Gross neurological examination did not reveal any focal deficits. SKIN: No rashes. Assessment and plan 1. Altered mental status; likely substance abuse; patient reports taking 6 mg of Xanax; urine drug screen is positive for marijuana -- Neurology is consulted and recommending EEG; vitamin B12, B6, MMA, TSH and RPR -- MRI of the brain is ordered, MRA of the brain ordered Neurology following Psych consult 2. Acute renal injury; monitor renal functions, avoid nephrotoxic agent 3. Electrolyte imbalance; potassium replacement ordered for today 4. Leukocytosis; without any source of infection 5. Hypertension; atenolol 100 mg daily; Cozaar 100 mg daily 5. History of polysubstance abuse; urine drug screen is positive for marijuana 6. History of depression with drug overdose; patient denies this to be a suicidal attempt -Continue Zoloft 200 mg daily and Wellbutrin 150 mg 3 times daily Psych consulted Labs and medication were reviewed.. Continue same treatment. Continue with symptomatic treatment. Resume home medication. Monitor labs and vitals. DVT and GI prophylaxis. Further recommendations as per clinical course of the patient Dictation was produced using [employer] dictation software. please excuse any grammatical, word or spelling errors. Objective - Vital Signs Vital signs: Vital Signs Temp 97.9 F 10/07/23 08:37 Pulse 66 10/07/23 08:37 Resp 15 10/07/23 08:37 BP 148/90 10/07/23 08:37 Pulse Ox 98 10/07/23 08:37 FiO2 Intake & Output 10/06/23 10/07/23 10/07/23 18:59 06:59 18:59 Intake Total 1700 237 654 Balance 1700 237 654 Intake: Oral 1700 237 654 Other: Voiding Method Toilet Toilet # Voids 2 1 - Labs CBC & Chem 7: 10/06/23 08:45 10/07/23 08:42 Labs: Abnormal Lab Results - Last 24 Hours (Table) 10/06/23 10/07/23 Range/Units 08:45 08:42 Potassium 2.7 L* 3.3 L (3.5-5.1) mmol/L Chloride 110 H 116 H (98-107) mmol/L Carbon Dioxide 20 L 18 L (22-30) mmol/L Glucose 100 H (74-99) mg/dL Calcium 8.3 L (8.4-10.2) mg/dL Triglycerides 173.00 H (0.00-149.00) mg/dL Cholesterol 240.00 H (0.00-200.00) mg/dL LDL Cholesterol, Calc 161.8 H (0.0-131.0) mg/dL
[2023-10-07] MEDS ORDERED: Potassium Replacement Protocol 1 EACH MISC MISCELLANE PRN (16:04)
[2023-10-07] MEDS: POTASSIUM CHLORIDE ER 20 MEQ TAB.ER PO SCH (16:11)
--- NOTE | 2023-10-07 18:23 | P.PN ---
Subjective Progress Note Date: 10/07/23 Patient was seen for a follow-up. Patient is laying comfortably in the bed. Mentation has remarkably improved. Patient states that she never took her mother's Xanax, does not know why she told me in the ER. She does admit to taking marijuana about twice a week. Patient states her mother does have history of MS. lead care manager has seen the patient, and recommending: Patient states she lives in her own home with her child. States she is independent with her ADLs. States she has a cane/walker but does not usually use them. States she wears oxygen prn. Plans to return home at time of discharge. Denies any concern with managing after discharge. Objective - Vital Signs Vital signs: Vital Signs Temp 98.4 F 10/07/23 16:07 Pulse 60 10/07/23 16:07 Resp 16 10/07/23 16:07 BP 165/92 10/07/23 16:07 Pulse Ox 98 10/07/23 16:07 FiO2 Intake & Output 10/06/23 10/07/23 10/07/23 18:59 06:59 18:59 Intake Total 2524 800 0318 Balance 2742 043 4688 Intake: Oral 8439 296 7235 Other: Voiding Method Toilet Toilet Toilet # Voids 2 1 2 - Labs CBC & Chem 7: 10/06/23 08:45 10/07/23 08:42 Labs: Abnormal Lab Results - Last 24 Hours (Table) 10/06/23 10/07/23 Range/Units 08:45 08:42 Potassium 3.3 L (3.5-5.1) mmol/L Chloride 116 H (98-107) mmol/L Carbon Dioxide 18 L (22-30) mmol/L Glucose 100 H (74-99) mg/dL Calcium 8.3 L (8.4-10.2) mg/dL Triglycerides 173.00 H (0.00-149.00) mg/dL Cholesterol 240.00 H (0.00-200.00) mg/dL LDL Cholesterol, Calc 161.8 H (0.0-131.0) mg/dL Assessment and Plan Assessment: * Altered mental status, unclear cause, rule out substance abuse. Patient denies taking her mother's Xanax at home. Her urine drug screen negative for benzodiazepine. * Abnormal brain MRI, concerning for MS. * History of substance use * Anxiety, depression * History of folate deficiency * History of marijuana use * Hyperlipidemia * Tobacco use Plan: * EEG was performed today, which was normal awake and drowsy. No focal, lateralized or epileptiform activity was seen. * B12 828, TSH 1.7 and RPR nonreactive. MMA, B6 pending. * Lipid panel with cholesterol 240, LDL 161, HDL 43, triglycerides 173. Start Lipitor 20 mg daily. * MRI of the brain with and without contrast, revealed no evidence of intracr anial mass, acute/subacute infarct or abnormal enhancement. White matter changes some of which is orthogonal to the lateral ventricles, correlate for demyelination. Findings could be compatible with multiple sclerosis. No evidence for active demyelination at this time. I personally reviewed MRI, agree with the findings. * MRA of the brain, revealed stable appearance of the left supraclinoid internal carotid artery. Possibly representing infundibulum versus small aneurysm measuring 3 mm. * Patient agreed to undergo lumbar puncture to rule out MS. We will perform it in the morning. * Start folic acid 1 mg daily for history of folate deficiency * Patient's previous thiamine level was normal. * order worker intervention to assess family situation.
--- NOTE | 2023-10-07 19:15 | P.CN ---
Psychiatric Consult - . Consult date: 10/07/23 Consult:: IDENTIFYING DATA: This patient is a 47 year old female with history of depression, anxiety, and substance abuse, who presented with altered mental status. REASON FOR REFERRAL: Psychiatry was consulted for "substance abuse, drug overdose" HISTORY OF PRESENT ILLNESS: The patient presented to the hospital due to altered mental status. Per ER notes, patient daughter called patient's parents due to patient sleeping all morning, and later in the day found the patient to have altered mental status and brought her to the ER where she was awake, but was not able to talk or answer questions. She was admitted to the medical floor due to work-up of altered mental status, and per medical H&P patient reported . She was evaluated "that she took 3 tablets of Xanax 2 mg each; claims she was not trying to harm herself; patient is not sure how she get Xanax; does not have her 1 prescription". Neurology was consulted and per neurology note dated 10/05/23: "Patient states that she is allergic to a medication, and should not have had it. I asked which medication, patient states "Xanax". On asking the patient, who gave her the Xanax, patient said she took it "by herself" and took 3 tablets of 2 mg Xanax. Patient states that she took it from her mother's prescription. Patient takes Xanax about once a month. Patient frequently would disclose some information and then say "do not write it, or put it in records". She is asking for Xanax tablet to be prescribed now. I informed that she states that she is allergic to Xanax, but then she does not acknowledge it and asking because "she likes it". Patient is very confused. Patient lives by herself, has 1 child, whom she has contact. Vital signs arrival blood pressure 190/98 which came down to 107/66, pulse is 74 temperature 99.5. EKG shows sinus bradycardia with heart rate of 58, chest x- ray is normal. CT of the cervical spine showed no evidence of acute cervical spine fracture or traumatic malalignment. Mild cervical spondylosis. CT of the head showed no acute intracranial abnormality. Stable appearance of chronic right frontal lobe periventricular white matter hypoattenuation, consistent with remote insult. Patient denies any hypertension or diabetes. Patient smokes half pack per day for 11 years. However on looking at previous records, she mentioned for 20 years, then patient said "I lied", yes for 20 years. She admits to still smoking cigarettes. Then she mentioned "do not write about smoking". She denies any alcohol use, uses marijuana sometimes. She does not use any drugs. She stays home. Does not work. On asking about seizure, patient said that she had seizures in the past "sort of". Then patient stated not to write about the seizures, and then said she never had a seizure. Patient's mother has MS." On my evaluation, patient was found laying calmly in bed. She appears to minimize the circumstances leading to her admission and give vague or inconsistent responses. She reports she was confused when she arrived to the hospital and does not know why she said she has taken Xanax and is now claiming that she did not. She says the UDS she did here did not show benzodiazepines, only cannabis. She now claims she does not recall what she took. She recalls she was 'combative' in the ER and believes she hit her head, but does not recall how. She denies depressed mood. She reports she has some stress due to a needing to go to court for a ticket, but otherwise denies feeling helpless, hopeless or worthless. She reports difficulty falling asleep, but reports energy and appetite are intact. She denies SI/HI, intent or plan. She denies this was an intentional overdose and she denies this was a suicide attempt. At this time patient denies any suicidal or homicidal ideations, intent or plan. Patient denies any auditory, visual hallucinations and denies any paranoia or delusions. Patients attempts to minimize her past substance abuse. She reports she uses marijuana "sometimes". She denies regular alcohol use and states "once in a blue price", and when cued, she admits she has a history of heavy alcohol use of 1 pint per day but last used this heavy about 1 year ago. She has a history of methamphetamine abuse and reports last use was 1.5 years ago. She has a history of abusing Vicodin but denies recent use. I discussed this case with patient's nurse and nurse reports patient has been asking for benzodiazepines today, has received Ativan 0.5 mg po x 3 yesterday and x3 so far today. With patient's permission, she called her mother (Charity) so I could speak to her for additional history. Mother denies patient attempted suicide and denies patient has made suicidal statements. Mother denies concerns about self-harm and confirms patient is safe to go home. Mother denies need for inpatient psychiatric admission. Mother denies she has given patient any Xanax. PAST PSYCHIATRIC HISTORY: Patient has a a history of depression, anxiety, PTSD, benzodiazepine dependence, substance abuse (alcohol, methamphetamine, Vicodin, cannabis). Patient is currently prescribed Zoloft 200 mg daily, Buspar 30 mg BID, and Wellbutrin XL 150 mg TID. Patient reports 2 previous psychiatric hospitalizations (2018 in [place] for methamphetamines and 2019 [facility] for overdose on Baclofen). She reports these past overdoses were 'accidental'. Patient denies any psychiatric outpatient follow-up; medications are prescribed by a PA at her PCP office Dr. Mendoza. Patient has a history of of at least 5 suicide attempts per chart. PAST MEDICAL HISTORY: Past Medical History: Pneumonia, Respiratory Disorder Additional Past Medical History / Comment(s): Polysubstane abuse, history of drug overdose, history of ARDS requiring intubation and mechanical ventilation, history of severe rhabdomyolysis and LUIS MIGUEL (recovered), history of MSSA pneumonia and sepsis, history of metabolic encephalopathy (recovered), history of depression, suicidal thoughts, suicide attempts, obesity. 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 Past Anesthesia/Blood Transfusion Reactions: No Reported Reaction Past Psychological History: Anxiety, Depression, PTSD Smoking Status: Current every day smoker Past Alcohol Use History: None Reported Past Drug Use History: None Reported ALLERGIES: as per EMR. CHEMICAL DEPENDENCY HISTORY: as per HPI. FAMILY PSYCHIATRIC/SUBSTANCE USE HISTORY: Per chart, maternal great-grandmother committed suicide. Maternal grandmother has alcoholism, depression, and anxiety. Brother has depression and alcoholism. SOCIAL HISTORY: Lives with her 15 year old daughter. Unemployed, on SSDI. Parents are supportive. MENTAL STATUS EXAM: General Appearance: Patient appears to be stated age, fair hygiene and grooming wearing hospital gown with good eye contact.Tattoos of stars on both arms. Behavior: Patient is calmly lying in bed without any agitated behavior. Speech: Patient's speech is fluent and non-pressured. Mood/Affect: Patient reports their mood is "stressed", affect is constricted Suicidality/Homicidality: Patient denies having any suicidal or homicidal ideation intent or plan. Perceptions: Patient denies any visual hallucinations and denies any auditory hallucinations. Though content/process: There is no evidence of any delusional thought content and thought process is linear and goal-directed. Memory and concentration: AOX3, grossly intact for the purposes of this session. Judgment and insight: fair, poor in regards to substance abuse IMPRESSIONS: Delirium, unspecified Major depressive disorder vs substance-induced depressive disorder Sedative/hypnotic/anxiolytic (benzodiazepine) use disorder, dependence Cannabis use disorder Opioid use disorder, in reported remission Methamphetamine use disorder, in reported remission Alcohol use disorder, in reported remission Tobacco use disorder/nicotine dependence PLAN: -At this time patient DOES NOT meet criteria for inpatient psychiatric admission. -Delirium precautions recommended with patient including - avoiding use of narcotics and PREDATORY ANIMAL HUNTER sedatives, limit anticholinergic medications when possible, frequent re-orientation, minimize use of restraints, open window shades during the day and close them at night. -Would recommend the following medication changes/additions: Continue Zoloft 200 mg daily, Buspar 30 mg BID, and Wellbutrin XL 150 mg TID. Continue Ativan 0.5 mg Q6H PRN for anxiety and taper down and discontinue prior to discharge. -Haldol/Ativan as needed for agitation. -home support worker to provide patient with outpatient mental health/psychiatry resources for appropriate follow up upon discharge. Recommend patient link with [facility] for management of psychiatric medications. -Web Content Editor spoke with patient about substance abuse and the harmful effects on medical and mental health. -home support worker to provide patient substance use treatment resources including AA/NA meetings in the community. -home support worker to provide patient with access line number to call for inpatient substance rehab. -Communicated plan to patient's nurse -Psychiatry will sign off at this time -Please contact with any questions.
[2023-10-07] MEDS: ATORVASTATIN 20 MG TAB PO SCH (21:04)
[2023-10-07 23:23] LABS: Glucose,Whole Blood 91 mg/dL (70-110)
[2023-10-07] MEDS: HALOPERIDOL LACTATE 5 MG/ML 1 ML VIAL IM PRN (23:37)
--- NOTE | 2023-10-08 02:42 | EEG ---
ELECTROENCEPHALOGRAM REPORT PREAMBLE: This is a 47-year-old female with altered mental status. EEG FINDINGS: This is a 21-channel digital EEG recorded with video component, utilizing 10/20 international system with referential and bipolar montages. Background consists of well-developed, well regulated moderate voltage activity in 9 hertz alpha. Background is posterior dominant and reactive to eye opening and closing. Frequent eye blink artifacts were seen in the frontal region. Some drowsiness was seen with appearance of bilaterally symmetric. Theta frequency rhythm. Deeper stages of sleep were not seen. Photic driving response was not seen. Hyperventilation was not performed. No focal or generalized epileptiform activity was seen. IMPRESSION: This is a normal awake and drowsy EEG. No focal, lateralized, or epileptiform activity was seen. MMODL / IJN: [id number] /
[2023-10-08] MEDS ORDERED: LIDOCAINE 1% INJ 10MG/ML (20 ML MDV) SQ ONE (07:49)
[2023-10-08 10:49] LABS: ALT 12 U/L (4-34); AST 23 U/L (14-36); African American GFR (CKD) 78 (>60 ml/min/1.73 sqM); Albumin 3.2 g/dL (3.5-5.0); Alkaline Phosphatase 65 U/L (38-126); Anion Gap 8 mmol/L; Blood Urea Nitrogen 11 mg/dL (7-17); Calcium 8.6 mg/dL (8.4-10.2); Carbon Dioxide 18 mmol/L (22-30); Chloride 115 mmol/L (98-107); Glucose 98 mg/dL (74-99); Non-African American GFR(CKD) 68 (>60 ml/min/1.73 sqM); Potassium 3.4 mmol/L (3.5-5.1); Sodium 141 mmol/L (137-145); Total Bilirubin 0.3 mg/dL (0.2-1.3); Total Protein 5.8 g/dL (6.3-8.2)
[2023-10-08 10:51] LABS: Basophils # (A) 0.1 k/uL (0-0.2); Basophils % (A) 2 %; Eosinophils # (A) 0.1 k/uL (0-0.7); Eosinophils % (A) 2 %; HCT 34.7 % (34.0-46.0); Hypochromasia Marked; Lymphocytes # (A) 1.7 k/uL (1.0-4.8); Lymphocytes % (A) 29 %; MCH 26.9 pg (25.0-35.0); MCHC 28.9 g/dL (31.0-37.0); Mean Platelet Volume 8.6; Monocytes # (A) 0.3 k/uL (0-1.0); Monocytes % (A) 5 %; Neutrophils # (A) 3.6 k/uL (1.3-7.7); Neutrophils % (A) 60 %; Platelet Count 284 k/uL (150-450); RBC 3.73 m/uL (3.80-5.40); RDW 14.7 % (11.5-15.5)
[2023-10-08 10:56] LABS: MCV 92.9 fL (80.0-100.0)
[2023-10-08 11:45] VITALS: BP 158/95; PULSE 58; TEMP 98.6
--- NOTE | 2023-10-08 13:13 | P.PN ---
Subjective Progress Note Date: 10/08/23 47-year-old female, history of polysubstance abuse, depression, presenting to the emergency department for change in mental status. Patient's daughter called patient's parents this morning. Father went over and found patient sleeping all morning. This was for a couple of hours. They received another call and went to evaluate her prior to arrival. They found patient in the current state that she has right now. Patient is awake and alert. Patient will not talk or answer any questions. At the time of my evaluation patient reports that she took 3 tablets of Xanax 2 mg each; claims she was not trying to harm herself; patient is not sure how she get Xanax; does not have her 1 prescription Blood work completed in ED reveals a WBC of 16.2, hemoglobin of 11.4 and platelet count of 344, sodium 146, potassium 3.4, BUNs/creatinine of 19/1.33, troponin less than 0.012 CT of the head does not reveal any acute intracranial abnormality; stable appearance of chronic right frontal lobe periventricular white matter hypoattenuation consistent with remote insult CT of the cervical spine reveals mild cervical spondylosis --Patient is awake alert and oriented this morning; denies suicidal ideation or attempt; reports taking 3 tablets of Xanax, 2 mg each from her mother's prescription; psychiatry is consulted for substance abuse --Neurology on board and workup is in progress -- Blood work reveals improved renal function and normal white blood count -- Remains very anxious; has been placed on Ativan 0.5 mg every 6 hours as needed; await psych evaluation and recommendations 10/06. Patient seen and examined. Laying comfortably in the bed., No acute issues overnight. 10/07. Patient seen and examined. MRI of the brain done showed no evidence of ventricular mass or acute/subacute infarct. Did showed white matter changes could be suspicious of multiple sclerosis. Patient has been ambulating. REVIEW OF SYSTEMS: CONSTITUTIONAL: No fever, no malaise,. CARDIOVASCULAR: No chest pain, no palpitations, no syncope. PULMONARY: No shortness of breath, no cough, GASTROINTESTINAL: No diarrhea, no nausea, no vomiting, no abdominal pain. NEUROLOGICAL: No headaches, no weakness, PHYSICAL EXAMINATION: GENERAL: The patient is alert and oriented x3, not in any acute distress. Well developed, well nourished. HEENT: Pupils are round and equally reacting to light. EOMI. No scleral icterus. No conjunctival pallor. Normocephalic, atraumatic. No pharyngeal erythema. No thyromegaly. CARDIOVASCULAR: S1 and S2 present. No murmurs, rubs, or gallops. PULMONARY: Chest is clear to auscultation, no wheezing or crackles. ABDOMEN: Soft, nontender, nondistended, normoactive bowel sounds. No palpable organomegaly. MUSCULOSKELETAL: No joint swelling or deformity. EXTREMITIES: No cyanosis, clubbing, or pedal edema. NEUROLOGICAL: Gross neurological examination did not reveal any focal deficits. SKIN: No rashes. Assessment and plan 1. Altered mental status; likely substance abuse; patient reports taking 6 mg of Xanax; urine drug screen is positive for marijuana -- Neurology is consulted and recommending EEG; vitamin B12, B6, MMA, TSH and RPR -- MRI of the brain MRI of the brain done showed no evidence of ventricular mass or acute/subacute infarct. Did showed white matter changes could be suspicious of multiple sclerosis. MRA done showed stable appearance of the left supraclinoid internal carotid artery Neurology following, planning LP today Psych following, recommended At this time patient DOES NOT meet criteria for inpatient psychiatric admission. -Delirium precautions recommended with patient including - avoiding use of narcotics and DIRECTOR OF INTELLIGENCE sedatives, limit anticholinergic medications when possible, frequent re-orientation, minimize use of restraints, open window shades during the day and close them at night. -Would recommend the following medication changes/additions: Continue Zoloft 200 mg daily, Buspar 30 mg BID, and Wellbutrin XL 150 mg TID. Continue Ativan 0.5 mg Q6H PRN for anxiety and taper down and discontinue prior to discharge. -Haldol/Ativan as needed for agitation. Acute renal injury; Electrolyte imbalance Monitor renal function LUIS MIGUEL resolved potassium replacement ordered Leukocytosis; without any source of infection Hypertension; atenolol 100 mg daily; Cozaar 100 mg daily History of polysubstance abuse; urine drug screen is positive for marijuana History of depression with drug overdose; Psych following, recommended At this time patient DOES NOT meet criteria for inpatient psychiatric admission. -Delirium precautions recommended with patient including - avoiding use of narc otics and DIRECTOR OF INTELLIGENCE sedatives, limit anticholinergic medications when possible, frequent re-orientation, minimize use of restraints, open window shades during the day and close them at night. -Would recommend the following medication changes/additions: Continue Zoloft 200 mg daily, Buspar 30 mg BID, and Wellbutrin XL 150 mg TID. Continue Ativan 0.5 mg Q6H PRN for anxiety and taper down and discontinue prior to discharge. -Haldol/Ativan as needed for agitation. Labs and medication were reviewed.. Continue same treatment. Continue with symptomatic treatment. Resume home medication. Monitor labs and vitals. DVT and GI prophylaxis. Further recommendations as per clinical course of the patient Dictation was produced using [employer] dictation software. please excuse any grammatical, word or spelling errors. Objective - Vital Signs Vital signs: Vital Signs Temp 98.6 F 10/08/23 11:39 Pulse 58 L 10/08/23 11:39 Resp 16 10/08/23 11:39 BP 158/95 10/08/23 11:39 Pulse Ox 98 10/08/23 11:39 FiO2 Intake & Output 10/07/23 10/08/23 10/08/23 18:59 06:59 18:59 Intake Total 1128 240 Balance 1128 240 Intake: Oral 1128 240 Other: Voiding Method Toilet Toilet Toilet # Voids 2 1 - Labs CBC & Chem 7: 10/08/23 09:30 10/08/23 09:30 Labs: Abnormal Lab Results - Last 24 Hours (Table) 10/08/23 10/08/23 Range/Units 09:30 09:30 RBC 3.73 L (3.80-5.40) m/uL Hgb 10.0 L D (11.4-16.0) gm/dL MCHC 28.9 L (31.0-37.0) g/dL Potassium 3.4 L (3.5-5.1) mmol/L Chloride 115 H (98-107) mmol/L Carbon Dioxide 18 L (22-30) mmol/L Total Protein 5.8 L (6.3-8.2) g/dL Albumin 3.2 L (3.5-5.0) g/dL
[2023-10-08] MEDS: POTASSIUM CHLORIDE ER 20 MEQ TAB.ER PO STA (14:04)
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
== END 2023-10-08 15:37 | disposition home or self-care (01) | DRG 812 ==
LOC: EC 16:24 → 3SCARD 20:20
PROVIDERS: ADMIT Internal Medicine; ATTEND Internal Medicine
DX: T42.4X1A Poisoning by benzodiazepines, accidental (unintentional), initial encounter (principal); F13.20 Sedative, hypnotic or anxiolytic dependence, uncomplicated; F12.20 Cannabis dependence, uncomplicated; F11.21 Opioid dependence, in remission; F15.21 Other stimulant dependence, in remission; F17.210 Nicotine dependence, cigarettes, uncomplicated; E78.5 Hyperlipidemia, unspecified; F41.9 Anxiety disorder, unspecified; F32.A Depression, unspecified; E86.0 Dehydration; E53.8 Deficiency of other specified B group vitamins; F19.10 Other psychoactive substance abuse, uncomplicated; N17.9 Acute kidney failure, unspecified; I10 Essential (primary) hypertension; R56.9 Unspecified convulsions; M47.812 Spondylosis without myelopathy or radiculopathy, cervical region; F43.10 Post-traumatic stress disorder, unspecified; R45.6 Violent behavior; Z78.1 Physical restraint status; Z87.01 Personal history of pneumonia (recurrent); Z79.899 Other long term (current) drug therapy; Z86.19 Personal history of other infectious and parasitic diseases; Z87.11 Personal history of peptic ulcer disease; Z81.8 Family history of other mental and behavioral disorders; Z81.1 Family history of alcohol abuse and dependence; Z56.0 Unemployment, unspecified; Z88.2 Allergy status to sulfonamides; Z28.310 Unvaccinated for COVID-19; Z28.21 Immunization not carried out because of patient refusal; Z60.2 Problems related to living alone; Z53.8 Procedure and treatment not carried out for other reasons; Z82.0 Family history of epilepsy and other diseases of the nervous system
CPT/HCPCS: 36415; 70450; 70544; 70553; 71045; 72125; 80048; 80053; 80061; 80143; 80179; 80306; 80320; 81003; 82306; 82550; 82607; 83735; 83921; 84207; 84443; 84484; 85025; 85610; 85730; 86780; 93005; 95816; 96361; 96372; 96374; 96375; 99285

== ENCOUNTER 2024-02-22 00:42 | Inpatient (IN) | payer OTHER ==
[2024-02-22] MEDS: SODIUM CHLORIDE 0.9% 500 ML 500 ML IV STA (00:50)
[2024-02-22] MEDS: LORazepam 2 MG/ML INJ IV STA ×3 (00:50→01:20)
[2024-02-22] MEDS: ETOMIDATE 2 MG/ML 10 ML VIAL IVP STA ×2 (00:58→01:00)
[2024-02-22] MEDS: SUCCINYLCHOLINE CHLORIDE 200 MG/10 ML VIAL IV STA (01:03)
[2024-02-22 01:05] LABS: Anisocytosis Slight; Basophils # (A) 0.1 k/uL (0-0.2); Basophils % (A) 0 %; Eosinophils # (A) 0.1 k/uL (0-0.7); Eosinophils % (A) 1 %; HCT 33.3 % (34.0-46.0); HGB 10.9 gm/dL (11.4-16.0); Lymphocytes # (A) 3.4 k/uL (1.0-4.8); Lymphocytes % (A) 27 %; MCH 27.5 pg (25.0-35.0); MCHC 32.7 g/dL (31.0-37.0); Mean Platelet Volume 7.9; Monocytes # (A) 0.6 k/uL (0-1.0); Monocytes % (A) 5 %; Neutrophils # (A) 8.5 k/uL (1.3-7.7); Neutrophils % (A) 66 %; Platelet Count 304 k/uL (150-450); RBC 3.97 m/uL (3.80-5.40); RDW 17.2 % (11.5-15.5); WBC 12.8 k/uL (3.8-10.6)
[2024-02-22 01:07] LABS: INR 0.9 (<1.2); Partial Thromboplastin Time 23.3 sec (22.0-30.0); Prothrombin Time 10.1 sec (10.0-12.5)
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
[2024-02-22 01:32] LABS: ALT 55 U/L (4-34); AST 68 U/L (14-36); African American GFR (CKD) 53 (>60 ml/min/1.73 sqM); Albumin 4.3 g/dL (3.5-5.0); Alcohol <10 mg/dL; Alkaline Phosphatase 90 U/L (38-126); Anion Gap 5 mmol/L; Blood Urea Nitrogen 31 mg/dL (7-17); Calcium 9.4 mg/dL (8.4-10.2); Carbon Dioxide 25 mmol/L (22-30); Chloride 106 mmol/L (98-107); Glucose 125 mg/dL (74-99); Non-African American GFR(CKD) 46 (>60 ml/min/1.73 sqM); Sodium 136 mmol/L (137-145); Total Bilirubin 0.4 mg/dL (0.2-1.3); Total Protein 6.8 g/dL (6.3-8.2)
[2024-02-22 01:58] LABS: ABG Base Excess -0.2 mmol/L; ABG HCO3 26 mmol/L (21-25); ABG PCO2 52 mmHg (35-45); ABG PH 7.32 (7.35-7.45); ABG PO2 200 mmHg (83-108); ABG TCO2 28 mmol/L (19-24); Allen Test Performed? Yes
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
[2024-02-22 02:08] LABS: Appearance,Urine Clear (Clear); Bilirubin,Urine Negative (Negative); Blood,Urine Negative (Negative); Color,Urine Light Yellow; Glucose,Urine (UA) Negative (Negative); Ketones,Urine Negative (Negative); Leukocyte Esterase,Urine Negative (Negative); Nitrite,Urine Negative (Negative); Protein,Urine Trace (Negative); Specific Gravity,Urine 1.021 (1.001-1.035); Urobilinogen,Urine <2.0 mg/dL (<2.0)
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
[2024-02-22 02:21] LABS: Amphetamine Screen,Urine Not Detected (NotDetected); Barbiturate Screen,Urine Not Detected (NotDetected); Benzodiazepines Screen,Urine Detected (NotDetected); Cocaine Screen,Urine Not Detected (NotDetected); Methadone Screen, Urine Not Detected (NotDetected); Opiate Screen,Urine Not Detected (NotDetected); Oxycodone Screen, Urine Not Detected (NotDetected); Phencyclidine Screen,Urine Not Detected (NotDetected); Tricyclic Antidepressant,Urine Not Detected (NotDetected); Urn Cannabinoid Scrn Detected (NotDetected)
[2024-02-22] MEDS ORDERED: NALOXONE 0.4 MG/ML 1 ML VIAL IV PRN (02:39)
[2024-02-22] MEDS ORDERED: ACETAMINOPHEN SUPPOSITORY 650 MG SUPP RECTAL PRN (02:39)
[2024-02-22] MEDS: SODIUM CHLORIDE 0.9% 1,000 ML IV SCH (03:22)
[2024-02-22 03:36] LABS: Glucose,Whole Blood 111 mg/dL (70-110)
[2024-02-22] MEDS: MORPHINE SULFATE 4 MG/ML SYRINGE IV PRN (03:54)
[2024-02-22 06:12] LABS: ABG HCO3 28 mmol/L (21-25); ABG Oxygen Saturation 99.8 % (94-97); ABG PCO2 52 mmHg (35-45); ABG PH 7.35 (7.35-7.45); ABG PO2 145 mmHg (83-108); ABG TCO2 30 mmol/L (19-24); Allen Test Performed? Yes
[2024-02-22 06:25] LABS: Glucose,Whole Blood 97 mg/dL (70-110)
[2024-02-22 06:29] LABS: Anisocytosis Slight; Basophils % (A) 0 %; Eosinophils # (A) 0.1 k/uL (0-0.7); Eosinophils % (A) 1 %; HCT 32.1 % (34.0-46.0); HGB 10.1 gm/dL (11.4-16.0); Hypochromasia Slight; Lymphocytes # (A) 2.4 k/uL (1.0-4.8); Lymphocytes % (A) 24 %; MCHC 31.3 g/dL (31.0-37.0); MCV 86.3 fL (80.0-100.0); Mean Platelet Volume 7.7; Monocytes # (A) 0.4 k/uL (0-1.0); Monocytes % (A) 4 %; Neutrophils # (A) 7.1 k/uL (1.3-7.7); Neutrophils % (A) 70 %; Platelet Count 254 k/uL (150-450); RBC 3.72 m/uL (3.80-5.40); RDW 17.2 % (11.5-15.5); WBC 10.2 k/uL (3.8-10.6)
[2024-02-22 06:53] LABS: African American GFR (CKD) 70 (>60 ml/min/1.73 sqM); Anion Gap 9 mmol/L; Blood Urea Nitrogen 26 mg/dL (7-17); Calcium 9.1 mg/dL (8.4-10.2); Carbon Dioxide 25 mmol/L (22-30); Chloride 104 mmol/L (98-107); Glucose 91 mg/dL (74-99); Non-African American GFR(CKD) 61 (>60 ml/min/1.73 sqM); Potassium 3.4 mmol/L (3.5-5.1); Sodium 138 mmol/L (137-145)
[2024-02-22] MEDS ORDERED: Potassium Replacement Protocol 1 EACH MISC MISCELLANE PRN (07:06)
--- NOTE | 2024-02-22 07:52 | XR ---
EXAMINATION TYPE: XR chest 1V DATE OF EXAM: 02/22/2024 COMPARISON: 02/22/2024 INDICATION: Intubated difficulty breathing TECHNIQUE: Single frontal view of the chest is obtained. FINDINGS: The heart size is normal. The pulmonary vasculature is prominent. Mild perihilar increased lung markings are present. Correlate for pulmonary edema. Endotracheal tube tip is 2.9 cm above the shaw. Nasogastric tube transverses the thorax with tip in the left upper quadrant of the abdomen. IMPRESSION: 1. Increased central lung markings and prominent pulmonary vascular markings, correlate for volume ov erload. 2. Lines and catheters discussed above.
[2024-02-22] MEDS ORDERED: ARTIFICIAL TEARS-HYPROMELLOSE DROPS 15 ML BTL BOTH EYES PRN (08:00)
[2024-02-22] MEDS ORDERED: ARTIFICIAL TEARS OINTMENT 3.5 GM TUBE BOTH EYES PRN (08:00)
[2024-02-22] MEDS: PANTOPRAZOLE 40 MG/10 ML VIAL IV SCH (09:20)
[2024-02-22] MEDS: POTASSIUM BICARBONATE/CIT AC 20 MEQ TABLET.EFF NG-TUBE SCH (09:21)
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
[2024-02-22 11:36] LABS: Glucose,Whole Blood 70 mg/dL (70-110)
[2024-02-22 13:29] LABS: Glucose,Whole Blood 59 mg/dL (70-110)
[2024-02-22] MEDS: DEXTROSE 50% SYRINGE 50 ML IVP ONE (13:30)
[2024-02-22 13:49] LABS: Glucose,Whole Blood 90 mg/dL (70-110)
[2024-02-22] MEDS: LORazepam 2 MG/ML INJ IV PRN ×3 (14:41→22:45)
[2024-02-22 16:08] LABS: Glucose,Whole Blood 80 mg/dL (70-110)
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
[2024-02-22 18:08] LABS: Glucose,Whole Blood 87 mg/dL (70-110)
[2024-02-23 05:45] LABS: Anisocytosis Slight; Basophils % (A) 0 %; Eosinophils # (A) 0.1 k/uL (0-0.7); Eosinophils % (A) 2 %; HCT 31.4 % (34.0-46.0); HGB 9.9 gm/dL (11.4-16.0); Hypochromasia Moderate; Lymphocytes # (A) 2.4 k/uL (1.0-4.8); Lymphocytes % (A) 36 %; MCH 26.8 pg (25.0-35.0); MCHC 31.6 g/dL (31.0-37.0); MCV 84.8 fL (80.0-100.0); Mean Platelet Volume 7.4; Monocytes # (A) 0.4 k/uL (0-1.0); Monocytes % (A) 5 %; Neutrophils # (A) 3.7 k/uL (1.3-7.7); Neutrophils % (A) 55 %; Platelet Count 248 k/uL (150-450); RDW 17.1 % (11.5-15.5); WBC 6.7 k/uL (3.8-10.6)
[2024-02-23 05:57] LABS: African American GFR (CKD) >90 (>60 ml/min/1.73 sqM); Anion Gap 2 mmol/L; Blood Urea Nitrogen 10 mg/dL (7-17); Carbon Dioxide 27 mmol/L (22-30); Chloride 110 mmol/L (98-107); Glucose 88 mg/dL (74-99); Non-African American GFR(CKD) >90 (>60 ml/min/1.73 sqM); Potassium 3.2 mmol/L (3.5-5.1); Sodium 139 mmol/L (137-145)
[2024-02-23] MEDS: POTASSIUM BICARBONATE/CIT AC 20 MEQ TABLET.EFF NG-TUBE SCH (06:16)
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
[2024-02-23] MEDS: LOSARTAN 50 MG TAB PO SCH (10:05)
[2024-02-23] MEDS ORDERED: hydrALAZINE HCL 20 MG/ML 1 ML VIAL IVP PRN (12:13)
[2024-02-23] MEDS: amLODIPine 10 MG TAB PO SCH (12:41)
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
[2024-02-23] MEDS: POTASSIUM CHLORIDE ER 20 MEQ TAB.ER PO SCH (16:31)
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
[2024-02-23] MEDS: NICOTINE 7MG/24HR PATCH TRANSDERM SCH (18:36)
[2024-02-23] MEDS: HYDROmorphone 0.5 MG/0.5 ML SYRINGE IVP STA (23:37)
[2024-02-24 06:00] LABS: Anisocytosis Slight; Basophils % (A) 1 %; Eosinophils # (A) 0.2 k/uL (0-0.7); Eosinophils % (A) 3 %; HCT 35.7 % (34.0-46.0); HGB 11.3 gm/dL (11.4-16.0); Lymphocytes # (A) 2.7 k/uL (1.0-4.8); Lymphocytes % (A) 39 %; MCH 27.1 pg (25.0-35.0); MCHC 31.7 g/dL (31.0-37.0); MCV 85.5 fL (80.0-100.0); Mean Platelet Volume 7.7; Monocytes # (A) 0.4 k/uL (0-1.0); Monocytes % (A) 6 %; Neutrophils # (A) 3.4 k/uL (1.3-7.7); Neutrophils % (A) 50 %; Platelet Count 255 k/uL (150-450); RBC 4.17 m/uL (3.80-5.40); WBC 6.9 k/uL (3.8-10.6)
[2024-02-24 06:27] LABS: African American GFR (CKD) 76 (>60 ml/min/1.73 sqM); Anion Gap 6 mmol/L; Blood Urea Nitrogen 14 mg/dL (7-17); Calcium 9.1 mg/dL (8.4-10.2); Carbon Dioxide 25 mmol/L (22-30); Chloride 108 mmol/L (98-107); Glucose 81 mg/dL (74-99); Non-African American GFR(CKD) 66 (>60 ml/min/1.73 sqM); Potassium 4.1 mmol/L (3.5-5.1); Sodium 139 mmol/L (137-145)
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
[2024-02-24] MEDS: HYDROcodone/APAP 5-325MG 1 EACH TAB PO PRN (09:32)
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
[2024-02-24 13:28] VITALS: BP 148/105; PULSE 85; RESP 16; TEMP 98.4
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
== END 2024-02-24 15:10 | disposition home or self-care (01) | DRG 208 ==
LOC: EC 00:42 → 2SICU 02:42
PROVIDERS: ADMIT Surgery; ATTEND Surgery
PROC: 5A1935Z Respiratory Ventilation, Less than 24 Consecutive Hours (ICD-10-PCS; principal; 2024-02-22)
PROC: 0BH17EZ Insertion of Endotracheal Airway into Trachea, Via Natural or Artificial Opening (ICD-10-PCS; principal; 2024-02-22)
PROC: 0DH67UZ Insertion of Feeding Device into Stomach, Via Natural or Artificial Opening (ICD-10-PCS; 2024-02-22)
DX: J96.00 Acute respiratory failure, unspecified whether with hypoxia or hypercapnia (principal); V89.2XXA Person injured in unspecified motor-vehicle accident, traffic, initial encounter; S02.2XXA Fracture of nasal bones, initial encounter for closed fracture; V47.5XXA Car driver injured in collision with fixed or stationary object in traffic accident, initial encounter; Y92.410 Unspecified street and highway as the place of occurrence of the external cause; Z56.0 Unemployment, unspecified; F43.10 Post-traumatic stress disorder, unspecified; R41.0 Disorientation, unspecified; I10 Essential (primary) hypertension; F19.10 Other psychoactive substance abuse, uncomplicated; J44.9 Chronic obstructive pulmonary disease, unspecified; S05.11XA Contusion of eyeball and orbital tissues, right eye, initial encounter; F17.200 Nicotine dependence, unspecified, uncomplicated; F32.A Depression, unspecified; F41.9 Anxiety disorder, unspecified; Z79.899 Other long term (current) drug therapy; Z86.19 Personal history of other infectious and parasitic diseases; Z87.11 Personal history of peptic ulcer disease; Z91.51 Personal history of suicidal behavior; Z87.01 Personal history of pneumonia (recurrent); Z88.2 Allergy status to sulfonamides; Z78.1 Physical restraint status
CPT/HCPCS: 31500; 36415; 36600; 70450; 70486; 71045; 71260; 72125; 72170; 74177; 80048; 80053; 80306; 80320; 81003; 81025; 82805; 83605; 83735; 84132; 84484; 85025; 85610; 85730; 86850; 86900; 86901; 87070; 87205; 93005; 94002; 96374; 96375; 96376; 99291

== ENCOUNTER 2024-02-28 18:46 | Observation (INO) | payer OTHER ==
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
[2024-02-29 01:23] LABS: Glucose,Whole Blood 102 mg/dL (70-110)
[2024-02-29] MEDS ORDERED: RX INFO: IV CONTRAST WAS GIVEN 1 EACH MISC MISCELLANE PRN (01:30)
[2024-02-29 02:01] LABS: Partial Thromboplastin Time 25.4 sec (22.0-30.0); Prothrombin Time 10.8 sec (10.0-12.5)
[2024-02-29] MEDS: SODIUM CHLORIDE 0.9% 1,000 ML IV STA ×2 (02:03→03:16)
[2024-02-29 02:04] LABS: Anisocytosis Slight; Basophils % (A) 0 %; Eosinophils % (A) 0 %; HCT 44.5 % (34.0-46.0); Lymphocytes # (A) 2.2 k/uL (1.0-4.8); Lymphocytes % (A) 16 %; MCH 26.6 pg (25.0-35.0); MCHC 32.2 g/dL (31.0-37.0); MCV 82.7 fL (80.0-100.0); Mean Platelet Volume 7.2; Monocytes # (A) 0.5 k/uL (0-1.0); Monocytes % (A) 3 %; Neutrophils # (A) 10.8 k/uL (1.3-7.7); Neutrophils % (A) 79 %; Platelet Count 466 k/uL (150-450); RBC 5.38 m/uL (3.80-5.40); RDW 17.2 % (11.5-15.5); WBC 13.7 k/uL (3.8-10.6)
[2024-02-29] MEDS: LORazepam 2 MG/ML INJ IV STA (02:04)
[2024-02-29 02:08] LABS: ALT 30 U/L (4-34); AST 45 U/L (14-36); African American GFR (CKD) 20 (>60 ml/min/1.73 sqM); Albumin 5.5 g/dL (3.5-5.0); Alcohol <10 mg/dL; Alkaline Phosphatase 92 U/L (38-126); Anion Gap 22 mmol/L; Blood Urea Nitrogen 59 mg/dL (7-17); Calcium 10.6 mg/dL (8.4-10.2); Carbon Dioxide 17 mmol/L (22-30); Chloride 105 mmol/L (98-107); Glucose 102 mg/dL (74-99); Non-African American GFR(CKD) 17 (>60 ml/min/1.73 sqM); Potassium 4.9 mmol/L (3.5-5.1); Sodium 144 mmol/L (137-145); Total Bilirubin 0.8 mg/dL (0.2-1.3); Total Protein 9.4 g/dL (6.3-8.2)
[2024-02-29 02:16] LABS: HGB 14.3 gm/dL (11.4-16.0)
--- NOTE | 2024-02-29 02:35 | CT ---
EXAM: CT Head Without Intravenous Contrast CLINICAL HISTORY: ITS.REASON CT Reason: ams TECHNIQUE: Axial computed tomography images of the head/brain without intravenous contrast. CTDI is 47.2 mGy and DLP is 1347.4 mGy-cm. This CT exam was performed using one or more of the following dose reduction techniques: automated exposure control, adjustment of the mA and/or kV according to patient size, and/or use of iterative reconstruction technique. COMPARISON: 02/22/2024 FINDINGS: Brain: No hemorrhage or mass effect. Encephalomalacia right inferior frontal lobe Ventricles: No hydrocephalus. Bones/joints: Prior nasal bone fracture. Soft tissues: Unremarkable. Sinuses: No air fluid level. Mastoid air cells: Clear. IMPRESSION: No acute hemorrhage, hydrocephalus, or mass effect.
[2024-02-29] MEDS: SODIUM CHLORIDE 0.9% 1,000 ML IV SCH ×2 (03:00→03:31)
[2024-02-29 03:13] LABS: Acetaminophen <10.0 ug/mL; Salicylate <1.0 mg/dL
[2024-02-29] MEDS: SODIUM CHLORIDE 0.9% 500 ML 500 ML IV STA (03:16)
[2024-02-29] MEDS ORDERED: NALOXONE 0.4 MG/ML 1 ML VIAL IV PRN (03:24)
[2024-02-29] MEDS: LORazepam 2 MG/ML INJ IV PRN (04:42)
[2024-02-29 04:54] LABS: Appearance,Urine Cloudy (Clear); Bacteria,Urine Rare /hpf; Bilirubin,Urine Negative (Negative); Blood,Urine Negative (Negative); Color,Urine Light Yellow; Glucose,Urine (UA) Negative (Negative); Hyaline Casts,Urine 41 /lpf (0-2); Ketones,Urine Trace (Negative); Leukocyte Esterase,Urine Moderate (Negative); Mucus,Urine Rare /hpf; Nitrite,Urine Positive (Negative); Protein,Urine Trace (Negative); RBC,Urine 2 /hpf (0-5); Specific Gravity,Urine 1.017 (1.001-1.035); Squamous Epithelial Cell,Urine <1 /hpf (0-4); Urobilinogen,Urine <2.0 mg/dL (<2.0); WBC,Urine 61 /hpf (0-5)
[2024-02-29 04:56] LABS: Amphetamine Screen,Urine Not Detected (NotDetected); Barbiturate Screen,Urine Not Detected (NotDetected); Benzodiazepines Screen,Urine Detected (NotDetected); Cocaine Screen,Urine Not Detected (NotDetected); Methadone Screen, Urine Not Detected (NotDetected); Opiate Screen,Urine Detected (NotDetected); Oxycodone Screen, Urine Not Detected (NotDetected); Phencyclidine Screen,Urine Not Detected (NotDetected); Tricyclic Antidepressant,Urine Not Detected (NotDetected); Urn Cannabinoid Scrn Detected (NotDetected)
[2024-02-29] MEDS: ONDANSETRON 4 MG/2 ML VIAL IVP PRN (06:37)
[2024-02-29] MEDS: MORPHINE SULFATE 4 MG/ML SYRINGE IV PRN (07:32)
[2024-02-29] MEDS: PANTOPRAZOLE 40 MG/10 ML VIAL IV SCH (08:28)
[2024-02-29 11:15] LABS: Creatinine,Urine Random 68.7 mg/dL
--- NOTE | 2024-02-29 11:47 | US ---
EXAMINATION TYPE: US kidneys/renal and bladder DATE OF EXAM: 02/29/2024 COMPARISON: 02/22/2024 CLINICAL INDICATION: Female, 48 years old with history of Francis; AMS - patient not able to give history , signs, or symptoms EXAM MEASUREMENTS: Right Kidney: 9.9 x 4.2 x 5.2 cm Left Kidney: 10.6 x 5.1 x 5.6 cm Post Void Residual Volume: NA mL Right Kidney: wnl Left Kidney: wnl Bladder: wnl Bilateral Jets seen: No Normal Post Void Residual: NA There is no evidence for hydronephrosis at this point in time. No nephrolithiasis is seen. No alia s are identified. The urinary bladder is anechoic. IMPRESSION: No evidence for obstructive uropathy.
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
[2024-02-29] MEDS: ACETAMINOPHEN TAB 325 MG TAB PO PRN (18:11)
[2024-03-01 00:18] LABS: Glucose,Whole Blood 135 mg/dL (70-110)
[2024-03-01 00:27] LABS: Glucose,Whole Blood 136 mg/dL (70-110)
[2024-03-01] MEDS: hydrALAZINE HCL 20 MG/ML 1 ML VIAL IVP STA (00:27)
[2024-03-01] MEDS ORDERED: hydrALAZINE HCL 20 MG/ML 1 ML VIAL IVP PRN (00:37)
[2024-03-01] MEDS: NITROGLYCERIN OINT 1 INCH/GM PACKET TOPICAL SCH (00:45)
[2024-03-01] MEDS: amLODIPine 10 MG TAB PO SCH (01:28)
[2024-03-01 07:23] LABS: Anisocytosis Slight; Basophils % (A) 0 %; Eosinophils # (A) 0.1 k/uL (0-0.7); Eosinophils % (A) 1 %; HCT 36.5 % (34.0-46.0); HGB 11.8 gm/dL (11.4-16.0); Lymphocytes # (A) 3.2 k/uL (1.0-4.8); Lymphocytes % (A) 26 %; MCH 27.1 pg (25.0-35.0); MCHC 32.3 g/dL (31.0-37.0); MCV 83.8 fL (80.0-100.0); Mean Platelet Volume 7.6; Monocytes # (A) 0.6 k/uL (0-1.0); Monocytes % (A) 5 %; Neutrophils % (A) 66 %; Platelet Count 332 k/uL (150-450); RBC 4.36 m/uL (3.80-5.40); RDW 17.6 % (11.5-15.5); WBC 12.2 k/uL (3.8-10.6)
[2024-03-01 07:55] LABS: ALT 25 U/L (4-34); AST 30 U/L (14-36); African American GFR (CKD) 76 (>60 ml/min/1.73 sqM); Alkaline Phosphatase 72 U/L (38-126); Anion Gap 9 mmol/L; Blood Urea Nitrogen 26 mg/dL (7-17); Calcium 9.3 mg/dL (8.4-10.2); Carbon Dioxide 21 mmol/L (22-30); Chloride 109 mmol/L (98-107); Glucose 98 mg/dL (74-99); Non-African American GFR(CKD) 66 (>60 ml/min/1.73 sqM); Phosphorus 2.7 mg/dL (2.5-4.5); Potassium 3.6 mmol/L (3.5-5.1); Sodium 139 mmol/L (137-145); Total Bilirubin 0.4 mg/dL (0.2-1.3); Total Protein 6.7 g/dL (6.3-8.2)
[2024-03-01 08:20] LABS: Magnesium 1.9 mg/dL (1.6-2.3)
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
[2024-03-01] MEDS: GABAPENTIN 300 MG CAP PO SCH (16:03)
[2024-03-01] MEDS: bisacodyL 5 MG TABLET.DR PO PRN (18:28)
[2024-03-01] MEDS: NICOTINE 14MG/24HR PATCH TRANSDERM SCH (18:28)
[2024-03-01] MEDS: polyethylene glycoL 3350 17 GM POWD.PACK PO SCH (18:28)
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
[2024-03-01] MEDS: MELATONIN 5 MG TABLET PO SCH (20:05)
[2024-03-02 07:42] LABS: Anisocytosis Slight; Basophils # (A) 0.1 k/uL (0-0.2); Basophils % (A) 1 %; Eosinophils # (A) 0.2 k/uL (0-0.7); Eosinophils % (A) 2 %; HCT 37.9 % (34.0-46.0); HGB 11.9 gm/dL (11.4-16.0); Hypochromasia Moderate; Lymphocytes # (A) 2.9 k/uL (1.0-4.8); Lymphocytes % (A) 34 %; MCH 26.9 pg (25.0-35.0); MCHC 31.3 g/dL (31.0-37.0); MCV 85.8 fL (80.0-100.0); Monocytes # (A) 0.5 k/uL (0-1.0); Monocytes % (A) 5 %; Neutrophils # (A) 4.9 k/uL (1.3-7.7); Neutrophils % (A) 57 %; Platelet Count 340 k/uL (150-450); RBC 4.42 m/uL (3.80-5.40); RDW 17.6 % (11.5-15.5); WBC 8.6 k/uL (3.8-10.6)
[2024-03-02 08:16] LABS: ALT 22 U/L (4-34); AST 26 U/L (14-36); African American GFR (CKD) 80 (>60 ml/min/1.73 sqM); Albumin 3.9 g/dL (3.5-5.0); Alkaline Phosphatase 67 U/L (38-126); Anion Gap 7 mmol/L; Blood Urea Nitrogen 18 mg/dL (7-17); Calcium 9.5 mg/dL (8.4-10.2); Carbon Dioxide 24 mmol/L (22-30); Chloride 109 mmol/L (98-107); Glucose 87 mg/dL (74-99); Non-African American GFR(CKD) 70 (>60 ml/min/1.73 sqM); Potassium 3.9 mmol/L (3.5-5.1); Sodium 140 mmol/L (137-145); Total Bilirubin 0.4 mg/dL (0.2-1.3); Total Protein 6.6 g/dL (6.3-8.2)
[2024-03-02 08:22] LABS: NT-Pro-B-Type Natriuretic Pept 235 pg/mL
[2024-03-02] MEDS: SERTRALINE 100 MG TAB PO SCH (08:46)
--- NOTE | 2024-03-02 09:37 | P.PN ---
Subjective Patient is seen in follow-up for acute kidney injury. Renal function back to baseline. Tolerating oral intake. Denies chest pain or shortness of breath. Vital signs are stable. General: No acute distress. HEENT: Head exam is unremarkable. LUNGS: No audible rhonchi or wheezes. HEART: Rate and Rhythm are regular. ABDOMEN: Nontender. EXTREMITITES: No edema. Objective - Vital Signs Vital signs: Vital Signs Temp 97.4 F L 03/02/24 04:22 Pulse 78 03/02/24 04:22 Resp 20 03/02/24 04:22 BP 132/83 03/02/24 04:22 Pulse Ox 94 L 03/02/24 04:22 FiO2 Intake & Output 03/01/24 03/02/24 03/02/24 18:59 06:59 18:59 Intake Total 560 180 Balance 560 180 Weight 65.7 kg Intake: IV 20 Invasive Line 2 20 Oral 540 180 Other: Voiding Method Toilet Toilet # Voids 1 1 # Bowel Movements 0 - Labs CBC & Chem 7: 03/02/24 07:22 03/02/24 07:22 Labs: Abnormal Lab Results - Last 24 Hours (Table) 02/29/24 03/02/24 03/02/24 Range/Units 03:01 07:22 07:22 RDW 17.6 H (11.5-15.5) % Chloride 109 H (98-107) mmol/L BUN 18 H (7-17) mg/dL Osmolality 323 H (275-295) mOsm/kg Microbiology - Last 24 Hours (Table) 02/29/24 13:15 Blood Culture - Preliminary Blood Assessment and Plan Plan: Assessment: 1. Acute kidney injury secondary to ATN secondary to hypovolemia. Resolved with IV hydration. Creatinine 0.97 today. 2. UTI on antibiotics. 3. Benign hypertension. Stable. 4. Polysubstance drug abuse. Plan: Maintain gentle IV hydration. Urine eosinophils positive at 2%. This will be repeated. Change PPI to Pepcid.
[2024-03-02] MEDS ORDERED: TEMAZEPAM 7.5 MG CAP PO PRN (09:40)
[2024-03-02 11:04] LABS: Chol/HDL Ratio 5.12 Ratio; LDL Cholesterol,Calculated 131.2 mg/dL (0.0-131.0)
[2024-03-02] MEDS: LACTULOSE 20 GM/30 ML CUP PO ONE ×2 (12:49→17:49)
--- NOTE | 2024-03-02 13:20 | XR ---
EXAMINATION TYPE: XR abdomen 2V DATE OF EXAM: 03/02/2024 1:05 PM CLINICAL INDICATION: Female, 48 years old with history of Abdominal Pain; COMPARISON: None. TECHNIQUE: Two views of the abdomen were obtained. FINDINGS: The bowel gas pattern is nonspecific without dilated loops of small or large bowel. There i s no evidence for organomegaly or pneumoperitoneum. The osseous structures are intact. No abnormal calcifications are present. Fecal material and gas are demonstrated throughout the colon and rectum. IUD projection. IMPRESSION: Nonspecific bowel gas pattern without radiographic evidence for acute process.
[2024-03-02 13:32] LABS: Amylase 53 U/L (30-110); Lipase 41 U/L (23-300)
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
[2024-03-02] MEDS: HYDROcodone/APAP 5-325MG 1 EACH TAB PO PRN (15:25)
[2024-03-02 16:04] VITALS: BMI 22.6
[2024-03-02] MEDS: bisacodyL 10 MG SUPP RECTAL STA (17:53)
[2024-03-02] MEDS: KETOROLAC 15 MG/ML 1 ML VIAL IVP PRN (20:08)
[2024-03-02] MEDS: ALPRAZolam 0.25 MG TAB PO PRN (20:08)
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
[2024-03-03 09:21] VITALS: RESP 16
[2024-03-03] MEDS: FAMOTIDINE 20 MG TAB PO SCH (09:26)
[2024-03-03 11:15] VITALS: BP 108/71; PULSE 73; TEMP 98
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
[2024-03-03] MEDS ORDERED: ATORVASTATIN 20 MG TAB PO SCH (21:00)
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
== END 2024-03-03 15:26 | disposition home or self-care (01) ==
LOC: EC 18:46 → 3SCARD 02-29 03:24
PROVIDERS: ADMIT Hospitalist; ATTEND Hospitalist
DX: G93.41 Metabolic encephalopathy (principal); F19.10 Other psychoactive substance abuse, uncomplicated; N17.0 Acute kidney failure with tubular necrosis; N39.0 Urinary tract infection, site not specified; E86.0 Dehydration; R53.1 Weakness; R79.89 Other specified abnormal findings of blood chemistry; E86.1 Hypovolemia; R82.4 Acetonuria; K59.00 Constipation, unspecified; E78.5 Hyperlipidemia, unspecified; F32.A Depression, unspecified; F41.9 Anxiety disorder, unspecified; I10 Essential (primary) hypertension; F43.10 Post-traumatic stress disorder, unspecified; F17.200 Nicotine dependence, unspecified, uncomplicated; E66.9 Obesity, unspecified; Z68.23 Body mass index [BMI] 23.0-23.9, adult; Z79.899 Other long term (current) drug therapy; Z88.2 Allergy status to sulfonamides
CPT/HCPCS: 36415; 70450; 74019; 76770; 80053; 80061; 80143; 80179; 80306; 80320; 81001; 82009; 82140; 82150; 82550; 82570; 83036; 83690; 83735; 83880; 83930; 83935; 84100; 84300; 84484; 85025; 85610; 85730; 87040; 87205; 93005; 93306; 94760; 96361; 96365; 96366; 96375; 96376; 99285

== ENCOUNTER → 2024-04-08 | Outpatient (CLI) | payer OTHER ==
[2024-04-08 10:03] VITALS: BP 114/80; PULSE 72; RESP 16; TEMP 97.3
--- NOTE | 2024-04-08 14:37 | P.PAINPG ---
PQRS Measure Charge Sheet Comment: HISTORY OF PRESENT ILLNESS: A 48 yr old female as a referral from Dr Kyle presents today w severe and chronic neck pain > 1 yr secondary to radiculopathy, spondylosis and facet arthropathy without myelopathy for evaluation. Pt states pain level is provoked at 8 /10 in intensity, constant, localized in the cervical spine, predominantly axial, throbbing in character w occasional shooting pain towards the lower neck and shoulders. Pain is provoked by any movement. Pain is alleviated by physician guided home stretches daily since Fall 2022, medications (Ibu), topicals, heat, manual massage, repositioning and rest . PMH: OA, Hx of ARDS requiring intubation & mechanical ventilation, MDD/ Anxiety/ PTSD PSH: Breast Biopsy (date unknown), Abdominal Surgery x2 SH: Daily tobacco use, Occ ETOH use, Polysubstance abuse w Methamphetamine, Cannabis, Benzodiazepines; Hx of 5 suicide attempts FH: Mo- No Reported History All: See list Meds: See list REVIEW OF ORGAN SYSTEMS: CONSTITUTIONAL: No fevers or chills. No recent weight loss. NEUROLOGICAL: + numbness and tingling along the distal extremities. No seizure disorders or headaches. MUSCULOSKELETAL: + pain PSYCHIATRIC: Denies current depression or suicidal though ts. Physical Examinations : Constitutional : Cooperative , not in acute distress . Neurologic : Cranial nerve II to XII intact. No focal neurological deficits. Psychiatric : alert & oriented x 3. Matching mood & appropriate affect. Judgment & insight intact. Musculoskeletal : Cervical Spine Motor strength in the deltoid and biceps: Normal right side. Normal Left side Motor strength biceps and the wrist extensors: Normal right side . Normal left side Motor strength in the triceps muscle: Normal right side. Normal left side Deep tendon reflexes: Normal at the biceps. Normal at Brachioradialis. Normal at triceps Vertebral body tenderness to deep palpation over C6 Brush test positive BL C6-C7 Cervical facet loading test: positive bilaterally Spurling test: positive bilaterally Neck distraction test: positive bilaterally Lesly sign: positive bilaterally Lumbar spine Motor strength lower extremities ,thigh and legs 5/5 Right side , 5/5 Left side Deep tendon reflexes : Normal Knee Jerk. Normal Ankle Jerk Vertebral body tenderness over Brush Test positive Lumbar facet Loading Test: positive Right / positive Left Range of motion of the lumbar spine Flexion 30 degrees, extension 10 degrees Straight Leg Raise test: Left/ Right positive at degrees Minnie test: positive right / positive left. Severe tenderness over the Sacroiliac joint on the Right / Left sides Gaenslen test: positive bilaterally Seated flexion test: positive bilaterally. Sacral spine : Severe tenderness over the Sacroiliac joint: right side / left side Range of motion: Flexion of the lumbar spine <60 degrees Range of motion: Extension of the lumbar spine <20 degrees Gaenslen's Test positive Minnie test: positive right side / left side Thigh Thrust Test Sacral Thrust Test Imaging: CT non contrast Brain/ Facial Bones/ Cervical spine from 02/22/24 reviewed Assessment/ Plan : C5-C6 spondylosis Recommendation of GABBY C6-C7 #1. PT w focus on traction/ decompression of cervical spine M54.12 in addition to physician guided home exercises she is currently performing. Risks, benefits of procedure discussed and patient verbalized understanding. Admits to anti- coagulant use or medical history of diabetes. Protocol for discontinuation/ continuation of medications layla procedure discussed. All questions answered. I have spent greater than 30 minutes on patient care today. Dr Castillo was available by phone for the evaluation of this patient. The time was used to review the medical records including relevant urine studies and Prescription history (MAPs), review of the available imaging, evaluation and examination of the patient, coordination of care with the medical staff and if applicable referring physicians, as well as creation of the medical record PQRS Narrative: Smoking Status Current every day smoker Home Medications: Ambulatory Orders amLODIPine [Norvasc] 10 mg PO DIRECTED 02/29/24 Atorvastatin [Lipitor] 20 mg PO HS #30 tab 03/03/24 Famotidine [Pepcid] 40 mg PO DAILY #30 tab 03/03/24 Sertraline [Zoloft] 100 mg PO DAILY #30 tab 03/03/24 Controlled Substance Measures - Controlled Substance Measures Is patient prescribed a controlled substance at discharge?: No
== END ==
LOC: PNWHC3 09:14
PROVIDERS: ATTEND Specialist
DX: M47.812 Spondylosis without myelopathy or radiculopathy, cervical region (principal); F17.200 Nicotine dependence, unspecified, uncomplicated; Z88.2 Allergy status to sulfonamides; Z88.1 Allergy status to other antibiotic agents
CPT/HCPCS: 99211

== ENCOUNTER 2024-06-09 12:43 | Emergency (ER) | payer OTHER ==
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
[2024-06-09 13:31] VITALS: TEMP 97.7
[2024-06-09 14:21] LABS: Basophils % (A) 0 %; Eosinophils # (A) 0.1 k/uL (0-0.7); Eosinophils % (A) 1 %; HCT 39.7 % (34.0-46.0); HGB 12.9 gm/dL (11.4-16.0); Lymphocytes # (A) 1.9 k/uL (1.0-4.8); Lymphocytes % (A) 21 %; MCH 27.9 pg (25.0-35.0); MCHC 32.4 g/dL (31.0-37.0); MCV 86.3 fL (80.0-100.0); Mean Platelet Volume 7.5; Monocytes # (A) 0.3 k/uL (0-1.0); Monocytes % (A) 3 %; Neutrophils # (A) 6.6 k/uL (1.3-7.7); Neutrophils % (A) 74 %; Platelet Count 294 k/uL (150-450); RDW 15.5 % (11.5-15.5); WBC 8.9 k/uL (3.8-10.6)
[2024-06-09 14:27] LABS: Appearance,Urine Clear (Clear); Bilirubin,Urine Negative (Negative); Blood,Urine Negative (Negative); Color,Urine Yellow; Glucose,Urine (UA) Negative (Negative); Ketones,Urine 1+ (Negative); Leukocyte Esterase,Urine Negative (Negative); Nitrite,Urine Negative (Negative); PH, Urine 6.5 (5.0-8.0); Protein,Urine Trace (Negative); Specific Gravity,Urine 1.022 (1.001-1.035); Urobilinogen,Urine <2.0 mg/dL (<2.0)
[2024-06-09] MEDS: ONDANSETRON 4 MG/2 ML VIAL IVP STA (16:16)
[2024-06-09] MEDS: KETOROLAC 15 MG/ML 1 ML VIAL IVP STA (16:16)
[2024-06-09] MEDS: SODIUM CHLORIDE 0.9% 1,000 ML IV STA (16:17)
--- NOTE | 2024-06-09 16:56 | US ---
EXAMINATION TYPE: US gallbladder DATE OF EXAM: 06/09/2024 COMPARISON: Abdominal radiograph dated 03/12/2024. CLINICAL INDICATION: Female, 48 years old with history of epigastric ab pain, N/V; Pain vomiting. TECHNIQUE: Grayscale and color Doppler imaging of the right upper quadrant was performed. FINDINGS: EXAM MEASUREMENTS: Liver Length: 15.4 cm Gallbladder Wall: .2 cm CBD: .6 cm Right Kidney: 11.1 x 4.1 x 6.0 cm Pancreas: Obscured by bowel gas Liver: wnl Gallbladder: No stones seen Evidence for sonographic Beard's sign: No CBD: Upper limits. Right Kidney: No hydronephrosis or masses seen IMPRESSION: Unremarkable right upper quadrant ultrasound exam. [facility], , 06/09/2024 4:54 PM
[2024-06-09 17:03] VITALS: RESP 18
[2024-06-09] MEDS: LORazepam 2 MG/ML INJ IV STA (17:40)
[2024-06-09 18:31] LABS: ALT 16 U/L (4-34); AST 18 U/L (14-36); African American GFR (CKD) 81 (>60 ml/min/1.73 sqM); Alkaline Phosphatase 77 U/L (38-126); Amylase 64 U/L (30-110); Anion Gap 6 mmol/L; Blood Urea Nitrogen 13 mg/dL (7-17); Carbon Dioxide 21 mmol/L (22-30); Chloride 112 mmol/L (98-107); Glucose 86 mg/dL (74-99); Lipase 35 U/L (23-300); Magnesium 1.7 mg/dL (1.6-2.3); Non-African American GFR(CKD) 70 (>60 ml/min/1.73 sqM); Potassium 3.4 mmol/L (3.5-5.1); Sodium 139 mmol/L (137-145); Total Bilirubin 0.4 mg/dL (0.2-1.3); Total Protein 6.4 g/dL (6.3-8.2)
[2024-06-09] MEDS: MORPHINE SULFATE 2 MG/ML SYRINGE IVP ONE (18:47)
[2024-06-09 18:55] VITALS: BP 164/74; PULSE 88
== END 2024-06-09 18:55 | disposition home or self-care (01) ==
LOC: EC 12:43
DX: R10.13 Epigastric pain (principal); R11.2 Nausea with vomiting, unspecified; F17.200 Nicotine dependence, unspecified, uncomplicated; Z88.1 Allergy status to other antibiotic agents; Z88.2 Allergy status to sulfonamides
CPT/HCPCS: 36415; 80053; 82150; 83605; 83690; 83735; 85025; 81003; 76705; 99284; 96374; 96375; 96361; J2060; J2405; J2270; J1885